=== PATIENT | female | born 1935 | race Hispanic/Latino ===

== ENCOUNTER 2018-05-05 12:34 | Inpatient (IN) | payer MEDICARE, MEDICAID, OTHER ==
[2018-05-05 13:35] VITALS: BMI 25.4
[2018-05-05] MEDS ORDERED: Vancomycin 1gm in NS 250ml 1 GM/250 ML BAG IVPB STA (13:38)
--- NOTE | 2018-05-05 13:50 | ED PDOC ---
Arrival/HPI - General Chief Complaint: Abnormal Skin Integrity Time Seen by Provider: 05/05/18 12:41 - History of Present Illness Narrative History of Present Illness (Text): 82 y/o F c PMHx COPD p/w R lower leg edema and rash x weeks, gradually worsening, causing worsening ability to ambulate about the house. Family and patient also report shortness of breath due to COPD for a long time. Patient has not found a PMD since her PMD and she is on no medications. She denies fever, chills, chest pain, nausea, vomiting, diarrhea. Past Medical History - Infectious Disease Hx of Infectious Diseases: None - Cardiac Hx Cardiac Disorders: Yes Hx Hypertension: Yes - Pulmonary Hx Respiratory Disorders: Yes Hx Chronic Obstructive Pulmonary Disease (COPD): Yes Hx Pneumonia: Yes - Neurological Hx Neurological Disorder: No - HEENT Hx HEENT Disorder: No - Renal Hx Renal Disorder: No - Endocrine/Metabolic Hx Endocrine Disorders: No - Hematological/Oncological Hx Blood Disorders: No - Integumentary Hx Dermatological Disorder: No - Musculoskeletal/Rheumatological Hx Musculoskeletal Disorders: No - Gastrointestinal Hx Gastrointestinal Disorders: Yes Hx Gastrointestinal Ulcer: Yes - Genitourinary/Gynecological Hx Genitourinary Disorders: No - Psychiatric Hx Psychophysiologic Disorder: No Hx Substance Use: No Family/Social History Family/Social History: No Known Family HX Smoking Status: Never Smoked Hx Alcohol Use: No Hx Substance Use: No Allergies/Home Meds Allergies/Adverse Reactions: Allergies Penicillins Allergy (Verified 05/05/18 13:34) RASH shellfish derived Allergy (Verified 05/05/18 13:34) RASH iv dye Allergy (Uncoded 05/05/18 13:34) RASH Review of Systems - Physician Review All systems were reviewed & negative as marked: Yes - Review of Systems Constitutional: absent: Fevers Cardiovascular: absent: Chest Pain Physical Exam - Physical Exam Narrative Physical Exam (Text): Gen: NAD Head: NC Eyes: PERRL ENT: MMM Neck: Supple Chest: No tenderness CV: Regular rate Lungs: Crackles bibasilar Abd: Soft, NT Back: No CVA tenderness Extremities: Bilateral lower extremity edema, R worse than L Skin: R lower leg erythema with weeping discharge Neuro: Alert, no focal deficit Vital Signs Temp Pulse Resp BP Pulse Ox 05/05/18 13:32 98.5 F 87 21 177/100 H 84 L Medical Decision Making ED Course and Treatment: EKG NSR 88 bpm, no ST elevations, normal intervals. 05/05/18 15:47 CXR hyperinflation, no consolidation. Elevated proBNP. Broad spectrum antibiotics administered for UTI, will also cover possible UTI on UA. Culture sent. Dr. Victor accepts patient to medical service. - RAD Interpretation Radiology Orders: 05/05/18 13:37 CHEST PORTABLE [RAD] Stat 05/05/18 13:38 DUPLEX LOWER EXTRM VEIN BILAT [US] Stat Disposition/Present on Arrival - Present on Arrival Any Indicators Present on Arrival: No History of DVT/PE: No History of Uncontrolled Diabetes: No Urinary Catheter: No History of Decub. Ulcer: No History Surgical Site Infection Following: None - Disposition Have Diagnosis and Disposition been Completed?: Yes Diagnosis: Cellulitis, UTI (urinary tract infection) Disposition Time: 14:40 Patient Plan: Admission Condition: FAIR Forms: [employer] ([employer])
[2018-05-05 14:28] LABS: BASO # 0.03 K/mm3 (0.0-2.0); BASO % 0.3 % (0.0-3.0); EOS # 0.2 (0.0-0.7); GRAN # 7.78 (1.4-6.5); GRAN % 81.1 % (50.0-68.0); HEMOGLOBIN 13.4 g/dL (12.0-16.0); LYMPH # 0.6 (1.2-3.4); MEAN CELL VOLUME 96.3 fl (80.0-105.0); MEAN CORPUSCULAR HEMOGLOBIN 30.7 pg (25.0-35.0); MEAN CORPUSCULAR HGB CONC 31.9 g/dl (31.0-37.0); MEAN PLATELET VOLUME 9.3 fl (7.0-11.0); MONO % 10.6 % (1.0-6.0); RBC 4.36 10^6/uL (3.5-6.1); WHITE BLOOD COUNT 9.6 10^3/uL (4.5-11.0)
[2018-05-05 14:55] LABS: INR 0.98; PARTIAL THROMBOPLASTIN TIME 25.3 Seconds (25.1-36.5); PROTHROMBIN TIME 11.2 SECONDS (9.4-12.5)
[2018-05-05 15:37] LABS: ALB/GLOB RATIO 1.1 (1.1-1.8); ALBUMIN 3.7 g/dL (3.0-4.8); ALT/SGPT 37 U/L (7-56); AST/SGOT 32 U/L (14-36); BLOOD UREA NITROGEN 34 mg/dL (7-21); GFR NON-AFRICAN AMERICAN > 60
[2018-05-05 15:41] LABS: URINE APPEARANCE CLEAR (CLEAR); URINE BILIRUBIN NEGATIVE (NEGATIVE); URINE BLOOD NEGATIVE (NEGATIVE); URINE COLOR YELLOW (YELLOW); URINE GLUCOSE (UA) NEGATIVE (NEGATIVE); URINE LEUKOCYTE ESTERASE SMALL Leu/uL (NEGATIVE); URINE PROTEIN TRACE mg/dL (<30 mg/dL); URINE UROBILINOGEN 0.2 E.U./dL (<1 E.U./dL)
[2018-05-05] MEDS ORDERED: Cefepime 1gm in NS 100ml 1 GM/100 ML BAG IVPB STA (15:41)
[2018-05-05 15:44] LABS: URINE RBC 0 - 2 /hpf (0-2)
[2018-05-05 15:45] LABS: B-TYPE NATRIURETIC PEPTIDE 3440 pg/mL (0-450)
[2018-05-05 15:45] LABS: URINE BACTERIA MOD (NEG)
--- NOTE | 2018-05-05 16:13 | CP.PCM.HP ---
<Colby Victor - Last Filed: 05/05/18 17:04> History of Present Illness - History of Present Illness History of Present Illness: Colby Victor Internal Medicine Resident H&P on Behalf of Hospitalist Team Subjective: CC: leg swelling and rash HPI: Patient is a 82 year old female with a past medical history of COPD who presents to the emergency department for evaluation and treatment of leg swelling/rash and difficulty with ambulation. States the symptoms began in November. Admits to having cuts and bug bites on lower extremity since onset. Admits to localized right lower extremity pain, rated a 5/10 at baseline, and characterized as a dull aching sensation. States swelling, erythema, and pain have gradually worsened since onset. Patient has not received medical attention for aforementioned symptoms nor has tried OTC medications/treatments. Unable to ambulate without overt difficulty. Admits to baseline shortness of breath. Does not take home nebulizer treatment for several years due to expense. Denies fever, chills, chest pain, shortness of breath, abdominal pain, nausea, vomiting, diarrhea, constipation, and urinary symptoms. 12 Point ROS negative except as indicated in HPI Past Medical History: COPD Past Surgical History: denies Allergies: penicillin, shellfish, iv dye Social History: denies ETOH, former tobacco user (quit over 20 years ago), and d enies illicit drug use Medications: does not take home medications PMD: does not follow Physical Examination: - Constitutional Appears: Well, Non-toxic, No Acute Distress - Head Exam Head Exam: ATRAUMATIC, NORMAL INSPECTION, NORMOCEPHALIC - Eye Exam Eye Exam: EOMI, Normal appearance - ENT Exam ENT Exam: Mucous Membranes Moist, Normal Exam, No tongue laceration - Neck Exam Neck exam: Positive for: Full Rom, Normal Inspection - Respiratory Exam Respiratory Exam: diminished breath sounds bilateral lower lobes, absent: Accessory Muscle Use, Rales, Rhonchi, Wheezes, Respiratory Distress - Cardiovascular Exam Cardiovascular Exam: REGULAR RHYTHM, +S1, +S2 - GI/Abdominal Exam GI & Abdominal Exam: Normal Bowel Sounds, Soft. absent: Distended, Firm, Guarding, Rebound, Rigid, Tenderness - Extremities Exam Extremities exam: right lower extremity circumferential erythema from foot to mid anterior aspect of lower extremity, scaling noted on medial/posterior aspect of foot, +2 pitting edema bilateral lower extremities\ - Neurological Exam Neurological exam: awake, alert, orientated x 3, responds to verbal stimuli, answers questions appropriately, follows commands, moves upper extremities past midline, muscle strength 5/5 bilateral upper extremities, 5/5 left lower extremity, RLE guarded 2/2 pain, sensation is intact to touch throughout, CNII- CNXII intact bilaterally - Psychiatric Exam Psychiatric exam: Normal Affect, Normal Mood - Skin Skin Exam: please see extremities exam Assessment and Plan: Patient is a 82 year old female with a past medical history of COPD who was admitted for evaluation and treatment of leg swelling and difficulty with ambulation. In the ED the patient was given vancomycin 1 gram IV x 1 and cefepime 1 gram IV x 1. Cellulitis - demarcate affected area to monitor for spread - continue vancomycin 1 gram IV daily and levofloxacin 750mg IV daily - will consult ID if patient is unresponsive to abx or cellulitis worsens - Podiatry consulted (Dr. Brown)- appreciate recs Lower Extremity Swelling - lower extremity duplex u/s ordered and pending at time to admission- unofficial read negative for DVT bilaterally - start lasix 20mg IV daily- will hold if SBP < 100mmHg - elevated BNP on admission, repeat BNP in AM - Echo ordered and pending- evaluate for component of CHF in light of lower extremity edema + CXR findings + SOB - Podiatry consulted (Dr. Brown)- appreciate recs UTI - patient has no urinary symptoms at this time Hx of COPD - CXR- ordered and official read pending at time to admission, patient is rotated, costophrenic angles visualized bilaterally, vascular congestion noted, multiple pulmonary nodules noted bilateral lung rico - duonebs q4 prn SOB Prophylaxis - DVT ppx- lovenox - GI ppx- not indicated Patient seen, case reviewed with, and plan approved by attending physician, Dr. Sandoval. Present on Admission - Present on Admission Any Indicators Present on Admission: No Past Patient History - Infectious Disease Hx of Infectious Diseases: None - Past Social History Smoking Status: Never Smoked - CARDIAC Hx Cardiac Disorders: Yes Hx Hypertension: Yes - PULMONARY Hx Respiratory Disorders: Yes Hx Chronic Obstructive Pulmonary Disease (COPD): Yes Hx Pneumonia: Yes - NEUROLOGICAL Hx Neurological Disorder: No - HEENT Hx HEENT Problems: No - RENAL Hx Chronic Kidney Disease: No - ENDOCRINE/METABOLIC Hx Endocrine Disorders: No - HEMATOLOGICAL/ONCOLOGICAL Hx Blood Disorders: No - INTEGUMENTARY Hx Dermatological Problems: No - MUSCULOSKELETAL/RHEUMATOLOGICAL Hx Musculoskeletal Disorders: No - GASTROINTESTINAL Hx Gastrointestinal Disorders: Yes - GENITOURINARY/GYNECOLOGICAL Hx Genitourinary Disorders: No - PSYCHIATRIC Hx Psychophysiologic Disorder: No Hx Substance Use: No - SURGICAL HISTORY Hx Surgeries: No Meds Allergies/Adverse Reactions: Allergies Allergy/AdvReac Type Severity Reaction Status Date / Time Penicillins Allergy RASH Verified 05/05/18 13:34 shellfish derived Allergy RASH Verified 05/05/18 13:34 iv dye Allergy RASH Uncoded 05/05/18 13:34 Results - Vital Signs Recent Vital Signs: Last Vital Signs Temp 98.5 F 05/05/18 13:32 Pulse 87 05/05/18 13:32 Resp 21 05/05/18 13:32 BP 177/100 H 05/05/18 13:32 Pulse Ox 84 L 05/05/18 13:32 - Labs Result Diagrams: 05/05/18 13:30 05/05/18 15:22 Labs: Laboratory Results - last 24 hr 05/05/18 05/05/18 05/05/18 13:30 13:30 15:22 WBC 9.6 RBC 4.36 Hgb 13.4 Hct 42.0 MCV 96.3 MCH 30.7 MCHC 31.9 RDW 15.0 H Plt Count 260 MPV 9.3 Gran % 81.1 H Lymph % (Auto) 6.0 L [place] % (Auto) 10.6 H Eos % (Auto) 2.0 Baso % (Auto) 0.3 Gran # 7.78 H Lymph # (Auto) 0.6 L [place] # (Auto) 1.0 H Eos # (Auto) 0.2 Baso # (Auto) 0.03 PT 11.2 INR 0.98 APTT 25.3 Sodium 136 Potassium 4.9 Chloride 97 L Carbon Dioxide 34 H Anion Gap 10 BUN 34 H Creatinine 0.7 Est GFR ( Amer) > 60 Est GFR (Non-Af Amer) > 60 Random Glucose 97 Calcium 9.0 Phosphorus 3.5 Magnesium 1.8 Total Bilirubin 0.8 AST 32 ALT 37 Alkaline Phosphatase 63 NT-Pro-B Natriuret Pep 3440 H Total Protein 7.1 Albumin 3.7 Globulin 3.4 Albumin/Globulin Ratio 1.1 Urine Color Urine Appearance Urine pH Ur Specific Stand[place] Urine Protein Urine Glucose (UA) Urine Ketones Urine Blood Urine Nitrate Urine Bilirubin Urine Urobilinogen Ur Leukocyte Esterase Urine RBC Urine WBC Ur Epithelial Cells Urine Bacteria 05/05/18 15:34 WBC RBC Hgb Hct MCV MCH MCHC RDW Plt Count MPV Gran % Lymph % (Auto) [place] % (Auto) Eos % (Auto) Baso % (Auto) Gran # Lymph # (Auto) [place] # (Auto) Eos # (Auto) Baso # (Auto) PT INR APTT Sodium Potassium Chloride Carbon Dioxide Anion Gap BUN Creatinine Est GFR ( Amer) Est GFR (Non-Af Amer) Random Glucose Calcium Phosphorus Magnesium Total Bilirubin AST ALT Alkaline Phosphatase NT-Pro-B Natriuret Pep Total Protein Albumin Globulin Albumin/Globulin Ratio Urine Color Yellow Urine Appearance Clear Urine pH 6.0 Ur Specific [place] 1.020 Urine Protein Trace H Urine Glucose (UA) Negative Urine Ketones Negative Urine Blood Negative Urine Nitrate Negative Urine Bilirubin Negative Urine Urobilinogen 0.2 Ur Leukocyte Esterase Small H Urine RBC 0 - 2 Urine WBC 5 - 10 Ur Epithelial Cells 3 - 4 Urine Bacteria Mod <Dheeraj Sandoval - Last Filed: 05/05/18 18:16> Results - Vital Signs Recent Vital Signs: Last Vital Signs Temp 98.5 F 05/05/18 13:32 Pulse 87 05/05/18 13:32 Resp 21 05/05/18 13:32 BP 177/100 H 05/05/18 13:32 Pulse Ox 84 L 05/05/18 13:32 - Labs Result Diagrams: 05/05/18 13:30 05/05/18 15:22 Labs: Laboratory Results - last 24 hr 05/05/18 05/05/18 05/05/18 13:30 13:30 15:22 WBC 9.6 RBC 4.36 Hgb 13.4 Hct 42.0 MCV 96.3 MCH 30.7 MCHC 31.9 RDW 15.0 H Plt Count 260 MPV 9.3 Gran % 81.1 H Lymph % (Auto) 6.0 L [place] % (Auto) 10.6 H Eos % (Auto) 2.0 Baso % (Auto) 0.3 Gran # 7.78 H Lymph # (Auto) 0.6 L [place] # (Auto) 1.0 H Eos # (Auto) 0.2 Baso # (Auto) 0.03 PT 11.2 INR 0.98 APTT 25.3 Sodium 136 Potassium 4.9 Chloride 97 L Carbon Dioxide 34 H Anion Gap 10 BUN 34 H Creatinine 0.7 Est GFR ( Amer) > 60 Est GFR (Non-Af Amer) > 60 Random Glucose 97 Calcium 9.0 Phosphorus 3.5 Magnesium 1.8 Total Bilirubin 0.8 AST 32 ALT 37 Alkaline Phosphatase 63 NT-Pro-B Natriuret Pep 3440 H Total Protein 7.1 Albumin 3.7 Globulin 3.4 Albumin/Globulin Ratio 1.1 Urine Color Urine Appearance Urine pH Ur Specific [place] Urine Protein Urine Glucose (UA) Urine Ketones Urine Blood Urine Nitrate Urine Bilirubin Urine Urobilinogen Ur Leukocyte Esterase Urine RBC Urine WBC Ur Epithelial Cells Urine Bacteria 05/05/18 15:34 WBC RBC Hgb Hct MCV MCH MCHC RDW Plt Count MPV Gran % Lymph % (Auto) [place] % (Auto) Eos % (Auto) Baso % (Auto) Gran # Lymph # (Auto) [place] # (Auto) Eos # (Auto) Baso # (Auto) PT INR APTT Sodium Potassium Chloride Carbon Dioxide Anion Gap BUN Creatinine Est GFR ( Amer) Est GFR (Non-Af Amer) Random Glucose Calcium Phosphorus Magnesium Total Bilirubin AST ALT Alkaline Phosphatase NT-Pro-B Natriuret Pep Total Protein Albumin Globulin Albumin/Globulin Ratio Urine Color Yellow Urine Appearance Clear Urine pH 6.0 Ur Specific [place] 1.020 Urine Protein Trace H Urine Glucose (UA) Negative Urine Ketones Negative Urine Blood Negative Urine Nitrate Negative Urine Bilirubin Negative Urine Urobilinogen 0.2 Ur Leukocyte Esterase Small H Urine RBC 0 - 2 Urine WBC 5 - 10 Ur Epithelial Cells 3 - 4 Urine Bacteria Mod Attending/Attestation - Attestation I have personally seen and examined this patient.: Yes I have fully participated in the care of the patient.: Yes I have reviewed all pertinent clinical information: Yes Notes (Text): 05/05/18 18:09 82 year old female with past medical history of COPD who presents with bilateral LE edema and right leg erythema. She is admitted for cellulitis and possible CHF. Probnp is elevated but CXR is negative for congestion; shows cardiomegaly. Will start iv antibiotics. ID/podiatry evaluation are requested. Will follow up on echocardiogram and LE dopplers. Can start lasix for diuresis. Dheeraj Sandoval MD Hospitalist.
--- NOTE | 2018-05-05 16:55 | RAD ---
Date of service: 05/05/2018 HISTORY: dyspnea COMPARISON: No prior. FINDINGS: LUNGS: No active pulmonary disease. PLEURA: No significant pleural effusion identified, no pneumothorax apparent. CARDIOVASCULAR: Aortic calcifications Moderate cardiomegaly. Mitral valve calcification no pulmonary vascular congestion. OSSEOUS STRUCTURES: No significant abnormalities. VISUALIZED UPPER ABDOMEN: Normal. OTHER FINDINGS: None. IMPRESSION: No active disease.
[2018-05-05] MEDS ORDERED: Albuterol-Ipratrop 3 mg / 0.5 (3 ml) UD IH PRN (17:07)
[2018-05-05] MEDS: Enoxaparin 40 mg Syringe SC SCH (17:11)
--- NOTE | 2018-05-05 19:23 | US ---
HISTORY: Leg pain and swelling. Evaluate for DVT PHYSICIAN(S): Shaheed Burden MD. TECHNIQUE: Duplex sonography and color-flow Doppler with graded compression were used to evaluate the deep venous systems of both lower extremities. The exam is limited by edema FINDINGS: The visualized deep venous systems of both lower extremities are sonographically normal and compressible. Normal wave forms and augmentation are seen. There is no sonographic evidence for deep venous thrombosis in the visualized segments of both lower extremities. IMPRESSION: No sonographic evidence for deep venous thrombosis in the visualized segments of both lower extremities.
[2018-05-05] MEDS ORDERED: Albuterol-Ipratrop 3 mg / 0.5 (3 ml) UD IH SCH (19:30)
[2018-05-05 19:43] LABS: HDL CHOLESTEROL 67 mg/dL (29-60)
--- NOTE | 2018-05-05 19:47 | CARD ---
APPROVED REPORT Date of service: 05/05/2018 EKG Measurement Heart [id number] <Conclusion> Poor data quality, interpretation may be adversely affected Suspect arm lead reversal, interpretation assumes no reversal Normal sinus rhythm Possible Left atrial enlargement Rightward axis Low voltage QRS Cannot rule out Anterior infarct, age undetermined Abnormal ECG
[2018-05-05 19:58] LABS: LDL CHOLESTEROL 73 mg/dL (0-129)
[2018-05-06 07:10] LABS: BASO # 0.02 K/mm3 (0.0-2.0); BASO % 0.3 % (0.0-3.0); EOS % 0.5 % (1.5-5.0); GRAN # 6.23 (1.4-6.5); GRAN % 78.5 % (50.0-68.0); HEMOGLOBIN 12.7 g/dL (12.0-16.0); LYMPH # 0.6 (1.2-3.4); LYMPH % 7.2 % (22.0-35.0); MEAN CELL VOLUME 95.8 fl (80.0-105.0); MEAN CORPUSCULAR HEMOGLOBIN 29.9 pg (25.0-35.0); MEAN CORPUSCULAR HGB CONC 31.2 g/dl (31.0-37.0); MEAN PLATELET VOLUME 9.1 fl (7.0-11.0); MONO # 1.1 (0.1-0.6); MONO % 13.5 % (1.0-6.0); RBC 4.25 10^6/uL (3.5-6.1); RED CELL DISTRIBUTION WIDTH 15.2 % (11.5-14.5); WHITE BLOOD COUNT 7.9 10^3/uL (4.5-11.0)
[2018-05-06 07:20] LABS: B-TYPE NATRIURETIC PEPTIDE 8030 pg/mL (0-450)
--- NOTE | 2018-05-06 07:26 | CP.PCM.CON ---
<eYimy Soriano - Last Filed: 05/06/18 14:04> History of Present Illness - History of Present Illness History of Present Illness: Infectious Disease Consult for Fercho Murcia PGY3 This is an 82yo female with no past medical history who was brought in by family for leg swelling for several days. Patient reports she has been feeling fine at home. She noticed some drainage from the R leg. She denies trauma, cat scratch, recent travel, working outside, sick contacts. Patient states it has been like that "for a while". She denies fever/chills, chest pain, shortness of breath, nausea/vomiting/diarrhea, numbness/tingling, dysuria or hematuria. Past medical history: denies Past surgical history: denies Home meds: Denies Allergies: PCN, Shellfish Social history: Former heavy smoker, denies Etoh or drug use. Lives alone. Has 1 cat named Trouble Family history: Mom- of ID age 53, Dad- of brain cancer age 80s, Sisters had pancreatic ca in 50s Review of Systems - Review of Systems All systems: reviewed and no additional remarkable complaints except Review of Systems: 12 point ROS reviewed as per HPI and is otherwise negative. Past Patient History - Infectious Disease Hx of Infectious Diseases: None - Past Social History Smoking Status: Never Smoked - CARDIAC Hx Cardiac Disorders: Yes Hx Hypertension: Yes - PULMONARY Hx Respiratory Disorders: Yes Hx Chronic Obstructive Pulmonary Disease (COPD): Yes Hx Pneumonia: Yes - NEUROLOGICAL Hx Neurological Disorder: No - HEENT Hx HEENT Problems: No - RENAL Hx Chronic Kidney Disease: No - ENDOCRINE/METABOLIC Hx Endocrine Disorders: No - HEMATOLOGICAL/ONCOLOGICAL Hx Blood Disorders: No - INTEGUMENTARY Hx Dermatological Problems: No - MUSCULOSKELETAL/RHEUMATOLOGICAL Hx Falls: No - GASTROINTESTINAL Hx Gastrointestinal Disorders: Yes - GENITOURINARY/GYNECOLOGICAL Hx Genitourinary Disorders: No - PSYCHIATRIC Hx Psychophysiologic Disorder: No - SURGICAL HISTORY Hx Surgeries: No Meds Allergies/Adverse Reactions: Allergies Allergy/AdvReac Type Severity Reaction Status Date / Time Penicillins Allergy RASH Verified 05/05/18 13:34 shellfish derived Allergy RASH Verified 05/05/18 13:34 iv dye Allergy RASH Uncoded 05/05/18 13:34 - Medications Medications: Current Medications Albuterol/Ipratropium (Duoneb 3 Mg/0.5 Mg (3 Ml) Ud) 3 ml IH [id number] PRN PRN Reason: Shortness of Breath Aspirin (Ecotrin) 81 mg PO DAILY [facility]END[facility] TO [facility] Enoxaparin Sodium (Lovenox) 30 mg SC DAILY [facility]; Protocol Last Admin: 05/05/18 17:11 Dose: 30 mg Furosemide (Lasix) 20 mg IVP DAILY [facility] Last Admin: 05/05/18 20:39 Dose: 20 mg Physical Exam - Constitutional Appears: No Acute Distress - Head Exam Head Exam: ATRAUMATIC, NORMAL INSPECTION, NORMOCEPHALIC - Eye Exam Eye Exam: Normal appearance, PERRL Pupil Exam: NORMAL ACCOMODATION, PERRL - ENT Exam ENT Exam: Mucous Membranes Moist - Neck Exam Neck exam: Positive for: Normal Inspection - Respiratory Exam Respiratory Exam: Clear to Auscultation Bilateral, NORMAL BREATHING PATTERN. absent: Rales, Rhonchi, Wheezes - Cardiovascular Exam Cardiovascular Exam: REGULAR RHYTHM, +S1, +S2. absent: Gallop, Rubs, Systolic Murmur - GI/Abdominal Exam GI & Abdominal Exam: Normal Bowel Sounds, Soft. absent: Mass, Rebound, Rigid, Tenderness - Extremities Exam Extremities exam: Positive for: pedal edema Additional comments: LLE has L sided wound with purulent drainage. Bilateral LE erythema. - Neurological Exam Neurological exam: Alert, CN II-XII Intact, Oriented x3 - Psychiatric Exam Psychiatric exam: Normal Affect, Normal Mood - Skin Skin Exam: Dry, Warm Results - Vital Signs Recent Vital Signs: Last Vital Signs Temp 98.3 F 05/05/18 22:41 Pulse 83 05/05/18 22:41 Resp 18 05/05/18 22:45 BP 199/86 H 05/05/18 22:41 Pulse Ox 91 L 05/05/18 22:41 - Labs Result Diagrams: 05/06/18 06:30 05/06/18 06:30 Labs: Laboratory Results - last 24 hr 05/05/18 05/05/18 05/05/18 13:30 13:30 15:22 WBC 9.6 RBC 4.36 Hgb 13.4 Hct 42.0 MCV 96.3 MCH 30.7 MCHC 31.9 RDW 15.0 H Plt Count 260 MPV 9.3 Gran % 81.1 H Lymph % (Auto) 6.0 L [place] % (Auto) 10.6 H Eos % (Auto) 2.0 Baso % (Auto) 0.3 Gran # 7.78 H Lymph # (Auto) 0.6 L [place] # (Auto) 1.0 H Eos # (Auto) 0.2 Baso # (Auto) 0.03 PT 11.2 INR 0.98 APTT 25.3 Sodium 136 Potassium 4.9 Chloride 97 L Carbon Dioxide 34 H Anion Gap 10 BUN 34 H Creatinine 0.7 Est GFR ( Amer) > 60 Est GFR (Non-Af Amer) > 60 Random Glucose 97 Hemoglobin A1c Calcium 9.0 Phosphorus 3.5 Magnesium 1.8 Total Bilirubin 0.8 AST 32 ALT 37 Alkaline Phosphatase 63 NT-Pro-B Natriuret Pep 3440 H Total Protein 7.1 Albumin 3.7 Globulin 3.4 Albumin/Globulin Ratio 1.1 Triglycerides Cholesterol LDL Cholesterol Direct HDL Cholesterol Urine Color Urine Appearance Urine pH Ur Specific [place] Urine Protein Urine Glucose (UA) Urine Ketones Urine Blood Urine Nitrate Urine Bilirubin Urine Urobilinogen Ur Leukocyte Esterase Urine RBC Urine WBC Ur Epithelial Cells Urine Bacteria 05/05/18 05/05/18 05/05/18 15:22 15:34 16:00 WBC RBC Hgb Hct MCV MCH MCHC RDW Plt Count MPV Gran % Lymph % (Auto) [place] % (Auto) Eos % (Auto) Baso % (Auto) Gran # Lymph # (Auto) [place] # (Auto) Eos # (Auto) Baso # (Auto) PT INR APTT Sodium Potassium Chloride Carbon Dioxide Anion Gap BUN Creatinine Est GFR ( Amer) Est GFR (Non-Af Amer) Random Glucose Hemoglobin A1c 5.6 Calcium Phosphorus Magnesium Total Bilirubin AST ALT Alkaline Phosphatase NT-Pro-B Natriuret Pep Total Protein Albumin Globulin Albumin/Globulin Ratio Triglycerides 55 Cholesterol 148 LDL Cholesterol Direct 73 HDL Cholesterol 67 H Urine Color Yellow Urine Appearance Clear Urine pH 6.0 Ur Specific [place] 1.020 Urine Protein Trace H Urine Glucose (UA) Negative Urine Ketones Negative Urine Blood Negative Urine Nitrate Negative Urine Bilirubin Negative Urine Urobilinogen 0.2 Ur Leukocyte Esterase Small H Urine RBC 0 - 2 Urine WBC 5 - 10 Ur Epithelial Cells 3 - 4 Urine Bacteria Mod 05/06/18 05/06/18 06:30 06:30 WBC 7.9 RBC 4.25 Hgb 12.7 Hct 40.7 MCV 95.8 MCH 29.9 MCHC 31.2 RDW 15.2 H Plt Count 234 MPV 9.1 Gran % 78.5 H Lymph % (Auto) 7.2 L [place] % (Auto) 13.5 H Eos % (Auto) 0.5 L Baso % (Auto) 0.3 Gran # 6.23 Lymph # (Auto) 0.6 L [place] # (Auto) 1.1 H Eos # (Auto) 0.0 Baso # (Auto) 0.02 PT INR APTT Sodium Potassium Chloride Carbon Dioxide Anion Gap BUN Creatinine Est GFR ( Amer) Est GFR (Non-Af Amer) Random Glucose Hemoglobin A1c Calcium Phosphorus Magnesium Total Bilirubin AST ALT Alkaline Phosphatase NT-Pro-B Natriuret Pep 8030 H Total Protein Albumin Globulin Albumin/Globulin Ratio Triglycerides Cholesterol LDL Cholesterol Direct HDL Cholesterol Urine Color Urine Appearance Urine pH Ur Specific [place] Urine Protein Urine Glucose (UA) Urine Ketones Urine Blood Urine Nitrate Urine Bilirubin Urine Urobilinogen Ur Leukocyte Esterase Urine RBC Urine WBC Ur Epithelial Cells Urine Bacteria Assessment & Plan - Assessment and Plan (Free Text) Assessment: 1. LLE puruelent cellulitis Plan: Septic work up pending. Wound cultures pending. US negative for DVT. Will check SIDNEY. Will start patient on Vancomycin. Podiatry is on consult. Will continue to monitor clinically. Case seen, discussed and reviewed with Dr. Martha Soriano PGY3 - Date & Time Date: 05/06/18 Time: 14:18 <Freddy Thomas - Last Filed: 05/06/18 17:16> Meds - Medications Medications: Current Medications Acetaminophen (Tylenol 325mg Tab) 650 mg PO Q6H PRN PRN Reason: Pain, moderate (4-7) Albuterol/Ipratropium (Duoneb 3 Mg/0.5 Mg (3 Ml) Ud) 3 ml IH [id number] PRN PRN Reason: Shortness of Breath Aspirin (Ecotrin) 81 mg PO DAILY [facility] Last Admin: 05/06/18 10:15 Dose: 81 mg Enoxaparin Sodium (Lovenox) 30 mg SC DAILY [facility]; Protocol Furosemide (Lasix) 20 mg IVP DAILY [facility] Last Admin: 05/06/18 10:15 Dose: 20 mg Vancomycin HCl (Vancomycin 1gm) 1 gm in 250 mls @ 167 mls/hr IVPB DAILY [facility]; Protocol Last Admin: 05/06/18 16:55 Dose: 167 mls/hr Results - Vital Signs Recent Vital Signs: Last Vital Signs Temp 97.5 F L 05/06/18 14:00 Pulse 92 H 05/06/18 14:00 Resp 16 05/06/18 14:00 BP 137/68 05/06/18 14:00 Pulse Ox 94 L 05/06/18 14:00 - Labs Result Diagrams: 05/06/18 06:30 05/06/18 06:30 Labs: Laboratory Results - last 24 hr 05/05/18 05/05/18 05/06/18 15:22 16:00 06:30 WBC 7.9 RBC 4.25 Hgb 12.7 Hct 40.7 MCV 95.8 MCH 29.9 MCHC 31.2 RDW 15.2 H Plt Count 234 MPV 9.1 Gran % 78.5 H Lymph % (Auto) 7.2 L [place] % (Auto) 13.5 H Eos % (Auto) 0.5 L Baso % (Auto) 0.3 Gran # 6.23 Lymph # (Auto) 0.6 L [place] # (Auto) 1.1 H Eos # (Auto) 0.0 Baso # (Auto) 0.02 Sodium Potassium Chloride Carbon Dioxide Anion Gap BUN Creatinine Est GFR ( Amer) Est GFR (Non-Af Amer) Random Glucose Hemoglobin A1c 5.6 Calcium Phosphorus Magnesium Total Bilirubin AST ALT Alkaline Phosphatase NT-Pro-B Natriuret Pep Total Protein Albumin Globulin Albumin/Globulin Ratio Triglycerides 55 Cholesterol 148 LDL Cholesterol Direct 73 HDL Cholesterol 67 H 05/06/18 06:30 WBC RBC Hgb Hct MCV MCH MCHC RDW Plt Count MPV Gran % Lymph % (Auto) [place] % (Auto) Eos % (Auto) Baso % (Auto) Gran # Lymph # (Auto) [place] # (Auto) Eos # (Auto) Baso # (Auto) Sodium 136 Potassium 4.5 Chloride 98 Carbon Dioxide 32 Anion Gap 10 BUN 33 H Creatinine 0.8 Est GFR ( Amer) > 60 Est GFR (Non-Af Amer) > 60 Random Glucose 102 Hemoglobin A1c Calcium 8.4 Phosphorus 3.5 Magnesium 1.7 Total Bilirubin 1.1 AST 25 ALT 32 Alkaline Phosphatase 52 NT-Pro-B Natriuret Pep 8030 H Total Protein 6.1 Albumin 3.0 Globulin 3.1 Albumin/Globulin Ratio 1.0 L Triglycerides Cholesterol LDL Cholesterol Direct HDL Cholesterol Assessment & Plan - Assessment and Plan (Free Text) Plan: Infectious Diseases Attending Physician Attestation Patient seen and examined, discussed with medical chemist. I have reviewed the patient's history of present illness, past medical, family and social histories, personal history, physical exam, lab findings and imaging studies. I agree with the above findings, assessment and plan. In addition, will start Vancomycin for patient with probable right leg cellulitis in this patient with probable chronic venous stasis - follow up ultrasound of legs and Podiatry evaluation.
[2018-05-06 07:34] LABS: ALT/SGPT 32 U/L (7-56); AST/SGOT 25 U/L (14-36); BLOOD UREA NITROGEN 33 mg/dL (7-21); CALCIUM 8.4 mg/dL (8.4-10.5); GFR NON-AFRICAN AMERICAN > 60
[2018-05-06] MEDS ORDERED: Vancomycin 1gm in NS 250ml 1 GM/250 ML BAG IVPB SCH (10:00)
[2018-05-06] MEDS ORDERED: levoFLOXacin 750 mg in D5W 750 MG/150 ML BAG IVPB SCH (10:00)
--- NOTE | 2018-05-06 15:33 | US ---
PROCEDURE: Lower extremity SIDNEY exam HISTORY: Peripheral vascular disease with pain and claudication. Previous smoker PHYSICIAN(S): Shaheed Burden MD. FINDINGS: The right resting SIDNEY is borderline abnormal, 0.86. The left resting SIDNEY is normal, 1.02 The brachial systolic pressures are symmetric. The high thigh pressures and waveforms are relatively normal. There appears to be a 41 mm gradient across the right knee. The right ankle and metatarsal waveforms are pulsatile and mildly blunted. This could represent distal right SFA, popliteal, and/or trifurcation disease. No gradient is seen on the left. IMPRESSION: 1. Borderline abnormal right SIDNEY 2. Possible distal right SFA, popliteal, and/or trifurcation disease.
[2018-05-06] MEDS: Vancomycin 1gm in NS 250ml 1 GM/250 ML BAG IVPB SCH (16:55)
--- NOTE | 2018-05-06 16:55 | CP.PCM.PN ---
<Rohan Carbajlaophe - Last Filed: 05/06/18 17:44> Subjective - Date & Time of Evaluation Date of Evaluation: 05/06/18 Time of Evaluation: 16:50 - Subjective Subjective: Michael Solomon PGY2 - IM Progress Note Patient seen and examined this AM. Patient reports improved lower extremity discomfort. Denies fever, chest pain, nausea, vomiting, abdominal pain. Objective - Vital Signs/Intake and Output Vital Signs (last 24 hours): Temp Pulse Resp BP Pulse Ox 97.5 F L 92 H 16 137/68 94 L 05/06/18 14:00 05/06/18 14:00 05/06/18 14:00 05/06/18 14:00 05/06/18 14:00 Intake and Output: 05/06/18 05/06/18 06:59 18:59 Intake Total 120 Balance 120 - Medications Medications: Current Medications Acetaminophen (Tylenol 325mg Tab) 650 mg PO Q6H PRN PRN Reason: Pain, moderate (4-7) Albuterol/Ipratropium (Duoneb 3 Mg/0.5 Mg (3 Ml) Ud) 3 ml IH [id number] PRN PRN Reason: Shortness of Breath Aspirin (Ecotrin) 81 mg PO DAILY [facility] Last Admin: 05/06/18 10:15 Dose: 81 mg Enoxaparin Sodium (Lovenox) 30 mg SC DAILY [facility]; Protocol Furosemide (Lasix) 20 mg IVP DAILY [facility] Last Admin: 05/06/18 10:15 Dose: 20 mg Vancomycin HCl (Vancomycin 1gm) 1 gm in 250 mls @ 167 mls/hr IVPB DAILY [facility]; Protocol - Labs Labs: 05/06/18 06:30 05/06/18 06:30 PT 11.2 SECONDS (9.4-12.5) 05/05/18 13:30 INR 0.98 05/05/18 13:30 APTT 25.3 Seconds (25.1-36.5) 05/05/18 13:30 - Constitutional Appears: No Acute Distress - Head Exam Head Exam: ATRAUMATIC, NORMAL INSPECTION, NORMOCEPHALIC - Eye Exam Eye Exam: EOMI, PERRL - ENT Exam ENT Exam: Mucous Membranes Moist - Respiratory Exam Respiratory Exam: Rales, Rhonchi, NORMAL BREATHING PATTERN - Cardiovascular Exam Cardiovascular Exam: REGULAR RHYTHM, +S1, +S2 - GI/Abdominal Exam GI & Abdominal Exam: Soft, Normal Bowel Sounds - Extremities Exam Additional comments: moderate swelling bilaterally Right greater than lef Right lower extremity with erythema, swelling, warmth, and slight tenderness to palpation, wound dressing showing some signs of collection of oozing fluid as reported on admission - Neurological Exam Neurological Exam: Alert, Awake, Oriented x3 Neuro motor strength exam: Left Upper Extremity: 5, Right Upper Extremity: 5, Left Lower Extremity: 5, Right Lower Extremity: 5 - Psychiatric Exam Psychiatric exam: Normal Affect, Normal Mood - Skin Skin Exam: Dry, Warm Assessment and Plan - Assessment and Plan (Free Text) Assessment: Patient is a 82 year old female with a past medical history of COPD who was admitted for evaluation and treatment of leg swelling and difficulty with ambulation. In the ED the patient was given vancomycin 1 gram IV x 1 and cefepime 1 gram IV. Podiatry consulted, ID consulted and following patient. Patient indicating clinical improvement in left leg discomfort. Plan: Cellulitis - Patient with improved discomfort on evaluation today - ID Consulted and following - Vancomycin and Podiatry follow up - Podiatry consulted (Dr. Kelsey)- awaiting recs - Bandaging in place showing some saturation with yellow fluid collection Lower Extremity Swelling - Etiology: Cardiac origin vs. venous insufficiency vs. immobility vs. infection - Elevated pro-BNP on admission, clinically less suspicious CHF - lower extremity duplex u/s negative for DVT bilaterally - lasix 20mg IV daily- will hold if SBP < 100mmHg - Podiatry consulted (Laure)- appreciate recs - Echocardiogram pending official read Hx of COPD - duonebs q4 prn SOB - O2 saturation appropriate Prophylaxis - DVT ppx- lovenox - GI ppx- not indicated Patient seen, case and plan discussed and approved by attending physician, Dr. Sandoval. <Dheeraj Sandoval - Last Filed: 05/06/18 18:12> Objective - Vital Signs/Intake and Output Vital Signs (last 24 hours): Temp Pulse Resp BP Pulse Ox 97.5 F L 92 H 16 137/68 94 L 05/06/18 14:00 05/06/18 14:00 05/06/18 14:00 05/06/18 14:00 05/06/18 14:00 Intake and Output: 05/06/18 05/06/18 06:59 18:59 Intake Total 120 Balance 120 - Medications Medications: Current Medications Acetaminophen (Tylenol 325mg Tab) 650 mg PO Q6H PRN PRN Reason: Pain, moderate (4-7) Albuterol/Ipratropium (Duoneb 3 Mg/0.5 Mg (3 Ml) Ud) 3 ml IH [id number] PRN PRN Reason: Shortness of Breath Aspirin (Ecotrin) 81 mg PO DAILY [facility] Last Admin: 05/06/18 10:15 Dose: 81 mg Enoxaparin Sodium (Lovenox) 30 mg SC DAILY [facility]; Protocol Furosemide (Lasix) 20 mg IVP DAILY [facility] Last Admin: 05/06/18 10:15 Dose: 20 mg Vancomycin HCl (Vancomycin 1gm) 1 gm in 250 mls @ 167 mls/hr IVPB DAILY [facility]; Protocol Last Admin: 05/06/18 16:55 Dose: 167 mls/hr - Labs Labs: 05/06/18 06:30 05/06/18 06:30 PT 11.2 SECONDS (9.4-12.5) 05/05/18 13:30 INR 0.98 05/05/18 13:30 APTT 25.3 Seconds (25.1-36.5) 05/05/18 13:30 Attending/Attestation - Attestation I have personally seen and examined this patient.: Yes I have fully participated in the care of the patient.: Yes I have reviewed all pertinent clinical information, including history, physical exam and plan: Yes Notes (Text): 05/06/18 18:03 82 year old female with past medical history of COPD who presented with bilateral LE edema and right leg erythema. She was admitted for cellulitis and started on iv antibiotics. ID evaluation was appreciated. Podiatry evaluation is pending. LE doppler was negative for DVT; arterial doppler showed borderline abnormal right SIDNEY: possible distal right SFA, popliteal and/or trifurcation disease. She is on iv lasix. Echocardiogram was done today with pending report. Dheeraj Sandoval MD Hospitalist.
--- NOTE | 2018-05-06 18:05 | CARD ---
APPROVED REPORT Date of service: 05/06/2018 EXAM: Two-dimensional and M-mode echocardiogram with Doppler and color Doppler. INDICATION ELEVATED BNP 2D DIMENSIONS Left Atrium (2D)5.7 (1.6-4.0cm)IVSd1.4 (0.7-1.1cm) LVDd3.7 (3.9-5.9cm)PWd1.2 (0.7-1.1cm) LVDs2.3 (2.5-4.0cm)FS (%) 37.8 % LVEF (%)68.8 (>50%) M-Mode DIMENSIONS Aortic Root3.00 (2.2-3.7cm)Aortic Cusp Exc.1.60 (1.5-2.0cm) Aortic Valve AoV Peak Ltvdhowj646.0cm/sAoV VTI41.2cmAO Peak GR.25mmHg LVOT Peak Zurprsta947.0cm/sLVOT VTI26.20cmAO Mean GR.12mmHg Mitral Valve MV E Mvvfrbkt166.0cm/sMV A Uekvnxsn580.0cm/sMV [id number] E/A ratio0.7MVA (PHT)2.08cm2 TDI Lateral E' Peak V7.90cm/sMedial E' Peak V4.87cm/sE/Lateral E'13.2 E/Medial E'21.4 Pulmonary Valve PV Peak Pctwtemg21.9cm/sPV Peak Grad.3mmHg Tricuspid Valve TR Peak Fyhfjowe910mq/sRAP [id number] Peak Gr.135mmHg [id number] LEFT VENTRICLE The left ventricle is normal size. There is mild to moderate concentric left ventricular hypertrophy. The left ventricular function is normal.EF-65-70% There is a flattened septum consistent with right ventricle volume and pressure overload. Transmitral Doppler flow pattern is Grade III-reversible restrictive diastolic dysfunction. No left ventricle thrombus noted on this study. There is no ventricular septal defect visualized. There is no left ventricular aneurysm. There is no mass noted in the left ventricle. RIGHT VENTRICLE The right ventricle is severely dilated. The right ventricle is mildly to moderately hypertrophied. Systolic function of RV is moderately to severely reduced. ATRIA The left atrium is moderately dilated. The right atrium is severely dilated. The interatrial septum is intact with no evidence for an atrial septal defect. AORTIC VALVE The aortic valve is thickened but opens well. The aortic valve is mildly to moderately sclerotic. There is trace aortic regurgitation. Aortic Sclerosis Vs Mild As There is no aortic valvular vegetation. MITRAL VALVE The mitral valve is thickened but opens well. Mitral annular calcification is severe. Mitral regurgitation is moderate to severe., Eccentric Jet posteriorly directed. There is no mitral valve stenosis. There is no evidence of mitral valve prolapse. TRICUSPID VALVE The tricuspid valve leaflets are thickened , but open well. There is severe tricuspid regurgitation.RVSP-145 mm of Hg There is severe pulmonary hypertension. There is no tricuspid valve stenosis. There is no tricuspid valve prolapse or vegetation. PULMONIC VALVE The pulmonary valve is normal in structure. There is trace pulmonic valvular regurgitation. There is no pulmonic valvular stenosis. GREAT VESSELS The aortic root is normal in size. The ascending aorta is normal in size. The pulmonary artery is normal. The IVC is dilated. PERICARDIAL EFFUSION There is no pleural effusion. There is a trace to small pericardial effusion. <Conclusion> The left ventricle is normal size. There is mild to moderate concentric left ventricular hypertrophy. The left ventricular function is normal.EF-65-70% There is a flattened septum consistent with right ventricle volume and pressure overload. The right ventricle is severely dilated. Systolic function of RV is moderately to severely reduced. Aortic Sclerosis Vs Mild As There is trace aortic regurgitation. Mitral regurgitation is moderate to severe., Eccentric Jet posteriorly directed. There is severe tricuspid regurgitation.RVSP-145 mm of Hg There is severe pulmonary hypertension. There is trace pulmonic valvular regurgitation. The IVC is dilated. There is a trace to small pericardial effusion. No vegetation noted.
[2018-05-06] MEDS: Enoxaparin 40 mg Syringe SC SCH (18:53)
--- NOTE | 2018-05-07 06:55 | CP.PCM.PN ---
<Yeimy Soriano - Last Filed: 05/07/18 12:21> Subjective - Date & Time of Evaluation Date of Evaluation: 05/07/18 Time of Evaluation: 07:00 - Subjective Subjective: Infectious Disease Progress Note for Fercho Murcia PGY3 Patient seen and examined at bedside. She is resting comfortably in bed. She remains afebrile. Objective - Vital Signs/Intake and Output Vital Signs (last 24 hours): Temp Pulse Resp BP Pulse Ox 98 F 88 18 130/70 95 05/06/18 22:00 05/06/18 22:00 05/06/18 22:00 05/06/18 22:00 05/06/18 22:00 Intake and Output: 05/06/18 05/07/18 18:59 06:59 Intake Total 120 1400 Balance 120 1400 - Medications Medications: Current Medications Acetaminophen (Tylenol 325mg Tab) 650 mg PO Q6H PRN PRN Reason: Pain, moderate (4-7) Albuterol/Ipratropium (Duoneb 3 Mg/0.5 Mg (3 Ml) Ud) 3 ml IH [id number] PRN PRN Reason: Shortness of Breath Aspirin (Ecotrin) 81 mg PO DAILY [facility] Last Admin: 05/06/18 10:15 Dose: 81 mg Enoxaparin Sodium (Lovenox) 30 mg SC DAILY [facility]; Protocol Furosemide (Lasix) 20 mg IVP DAILY [facility] Last Admin: 05/06/18 10:15 Dose: 20 mg Vancomycin HCl (Vancomycin 1gm) 1 gm in 250 mls @ 167 mls/hr IVPB DAILY [facility]; Protocol Last Admin: 05/06/18 16:55 Dose: 167 mls/hr - Labs Labs: 05/06/18 06:30 05/06/18 06:30 PT 11.2 SECONDS (9.4-12.5) 05/05/18 13:30 INR 0.98 05/05/18 13:30 APTT 25.3 Seconds (25.1-36.5) 05/05/18 13:30 - Constitutional Appears: No Acute Distress - Head Exam Head Exam: ATRAUMATIC, NORMAL INSPECTION, NORMOCEPHALIC - Eye Exam Eye Exam: Normal appearance, PERRL Pupil Exam: NORMAL ACCOMODATION, PERRL - ENT Exam ENT Exam: Mucous Membranes Moist - Respiratory Exam Respiratory Exam: Clear to Ausculation Bilateral, NORMAL BREATHING PATTERN. absent: Rales, Rhonchi, Wheezes - Cardiovascular Exam Cardiovascular Exam: REGULAR RHYTHM, +S1, +S2, Murmur. absent: Gallop, Rubs - GI/Abdominal Exam GI & Abdominal Exam: Soft, Normal Bowel Sounds. absent: Rigid, Tenderness, Mass, Rebound - Extremities Exam Extremities Exam: Pedal Edema Additional comments: LLE has L sided wound with purulent drainage. Bilateral LE erythema. - Neurological Exam Neurological Exam: Alert, Awake, CN II-XII Intact, Oriented x3 - Psychiatric Exam Psychiatric exam: Normal Affect, Normal Mood - Skin Skin Exam: Dry, Warm Assessment and Plan - Assessment and Plan (Free Text) Assessment: 1. LLE puruelent cellulitis 2. COPD 3. Diastolic CHF Plan: Labs and imaging reviewed. SIDNEY abnormal on R. Cultures showed 2 gram negative addy. Will add Azactam since patient PCN allergic. Will continue Vancomycin day #2. Podiatry consulted. Will continue to monitor clinically. Case seen, discussed and reviewed with Dr. Martha Soriano PGY3 <Freddy Thomas - Last Filed: 05/07/18 16:56> Objective - Vital Signs/Intake and Output Vital Signs (last 24 hours): Temp Pulse Resp BP Pulse Ox 98 F 90 18 155/87 H 94 L 05/07/18 14:00 05/07/18 14:00 05/07/18 14:00 05/07/18 14:00 05/07/18 06:00 Intake and Output: 05/07/18 05/07/18 06:59 18:59 Intake Total 1400 Balance 1400 - Medications Medications: Current Medications Acetaminophen (Tylenol 325mg Tab) 650 mg PO Q6H PRN PRN Reason: Pain, moderate (4-7) Albuterol/Ipratropium (Duoneb 3 Mg/0.5 Mg (3 Ml) Ud) 3 ml IH [id number] PRN PRN Reason: Shortness of Breath Aspirin (Ecotrin) 81 mg PO DAILY [facility] Last Admin: 05/07/18 12:05 Dose: 81 mg Betamethasone/Clotrimazole (Lotrisone) 0 ml TOP BID [facility] Enoxaparin Sodium (Lovenox) 30 mg SC DAILY [facility]; Protocol Last Admin: 05/07/18 12:06 Dose: 30 mg Furosemide (Lasix) 20 mg IVP DAILY [facility] Last Admin: 05/07/18 12:05 Dose: 20 mg Aztreonam (Azactam 1 Gm) 100 mls @ 100 mls/hr IVPB Q8 [facility]; Protocol Stop: 05/14/18 14:01 Last Admin: 05/07/18 15:12 Dose: 100 mls/hr Vancomycin HCl (Vancomycin 1gm) 1 gm in 250 mls @ 167 mls/hr IVPB Q12 [facility]; Protocol Polyethylene Glycol (Miralax) 17 gm PO DAILY [facility] Last Admin: 05/07/18 15:20 Dose: Not Given - Labs Labs: 05/07/18 07:00 05/07/18 07:00 PT 11.2 SECONDS (9.4-12.5) 05/05/18 13:30 INR 0.98 05/05/18 13:30 APTT 25.3 Seconds (25.1-36.5) 05/05/18 13:30 Assessment and Plan - Assessment and Plan (Free Text) Plan: Infectious Diseases Attending Physician Attestation Patient seen and examined, discussed with front office medical assistant. I have reviewed the patient's history of present illness, past medical, family and social histories, personal history, physical exam, lab findings and imaging studies. I agree with the above findings, assessment and plan. In addition, will continue Vancomycin and start Cefepime for patient with probable right leg cellulitis in this patient with probable chronic venous stasis - fgrowing gram negative bacilli and we are awaiting identification and sensitivities - follow up further Podiatry evaluation.
[2018-05-07 07:42] LABS: BASO # 0.04 K/mm3 (0.0-2.0); BASO % 0.5 % (0.0-3.0); EOS # 0.2 (0.0-0.7); GRAN # 5.06 (1.4-6.5); GRAN % 68.8 % (50.0-68.0); HEMOGLOBIN 13.2 g/dL (12.0-16.0); LYMPH # 0.9 (1.2-3.4); LYMPH % 12.5 % (22.0-35.0); MEAN CORPUSCULAR HEMOGLOBIN 30.6 pg (25.0-35.0); MEAN CORPUSCULAR HGB CONC 31.6 g/dl (31.0-37.0); MEAN PLATELET VOLUME 9.7 fl (7.0-11.0); MONO # 1.2 (0.1-0.6); MONO % 16.2 % (1.0-6.0); RBC 4.31 10^6/uL (3.5-6.1); RED CELL DISTRIBUTION WIDTH 15.3 % (11.5-14.5); WHITE BLOOD COUNT 7.4 10^3/uL (4.5-11.0)
[2018-05-07 08:03] LABS: ALT/SGPT 29 U/L (7-56); AST/SGOT 26 U/L (14-36); BLOOD UREA NITROGEN 33 mg/dL (7-21); CALCIUM 8.3 mg/dL (8.4-10.5); GFR NON-AFRICAN AMERICAN 60
--- NOTE | 2018-05-07 09:03 | CP.PCM.PN ---
<Alex Cho - Last Filed: 05/07/18 16:46> Subjective - Date & Time of Evaluation Date of Evaluation: 05/07/18 Time of Evaluation: 09:02 - Subjective Subjective: PGY-1 Medicine Progress Note for Dr. Sandoval Patient seen and examined at bedside this AM. No acute overnight events reported. Endorses decreased RLE swelling, redness, pain. No fevers/chills, headaches, dizziness, chest pain, palpitations, sob, cough, abdominal pain, n/v/d/c. Objective - Vital Signs/Intake and Output Vital Signs (last 24 hours): Temp Pulse Resp BP Pulse Ox 98 F 88 18 130/70 95 05/06/18 22:00 05/06/18 22:00 05/06/18 22:00 05/06/18 22:00 05/06/18 22:00 Intake and Output: 05/07/18 05/07/18 06:59 18:59 Intake Total 1400 Balance 1400 - Medications Medications: Current Medications Acetaminophen (Tylenol 325mg Tab) 650 mg PO Q6H PRN PRN Reason: Pain, moderate (4-7) Albuterol/Ipratropium (Duoneb 3 Mg/0.5 Mg (3 Ml) Ud) 3 ml IH [id number] PRN PRN Reason: Shortness of Breath Aspirin (Ecotrin) 81 mg PO DAILY [facility] Last Admin: 05/06/18 10:15 Dose: 81 mg Enoxaparin Sodium (Lovenox) 30 mg SC DAILY [facility]; Protocol Furosemide (Lasix) 20 mg IVP DAILY [facility] Last Admin: 05/06/18 10:15 Dose: 20 mg Vancomycin HCl (Vancomycin 1gm) 1 gm in 250 mls @ 167 mls/hr IVPB DAILY [facility]; Protocol Last Admin: 05/06/18 16:55 Dose: 167 mls/hr - Labs Labs: 05/07/18 07:00 05/07/18 07:00 PT 11.2 SECONDS (9.4-12.5) 05/05/18 13:30 INR 0.98 05/05/18 13:30 APTT 25.3 Seconds (25.1-36.5) 05/05/18 13:30 - Constitutional Appears: Non-toxic, No Acute Distress - Head Exam Head Exam: ATRAUMATIC, NORMAL INSPECTION, NORMOCEPHALIC - Eye Exam Eye Exam: EOMI, Normal appearance - ENT Exam ENT Exam: Mucous Membranes Moist, Normal Exam - Neck Exam Neck Exam: Full ROM, Normal Inspection - Respiratory Exam Respiratory Exam: Clear to Ausculation Bilateral, NORMAL BREATHING PATTERN. absent: Accessory Muscle Use, Rales, Rhonchi, Wheezes, Respiratory Distress, Stridor - Cardiovascular Exam Cardiovascular Exam: REGULAR RHYTHM, +S1, +S2 - GI/Abdominal Exam GI & Abdominal Exam: Soft, Normal Bowel Sounds. absent: Distended, Firm, Guarding, Rigid, Tenderness, Organomegaly, Rebound - Extremities Exam Extremities Exam: Normal Capillary Refill Additional comments: moderate swelling b/l R >L RLE with diminshing erythema, swelling, warmth RLE wound dressing clean/dry/intact - Back Exam Back Exam: NORMAL INSPECTION - Neurological Exam Neurological Exam: Alert, Awake, Oriented x3 - Psychiatric Exam Psychiatric exam: Normal Affect, Normal Mood - Skin Additional comments: as stated above Assessment and Plan - Assessment and Plan (Free Text) Assessment: 82 year old female with a past medical history of COPD who was admitted for evaluation and treatment of RLE cellulitis. Plan: RLE Cellulitis - Patient with improved discomfort on evaluation today - Wound dressing clean/dry/intact - ID Consulted and following - Vancomycin and Podiatry follow up - Podiatry (Dr. Kelsey) recs appreciated -borderline abnormal SIDNEY/PVR: possible right SFA, popliteal, and/or trifurcation disease -Interventional Radiology (Dr. Shaheed Burden) on board -Venous duplex: no DVT Lower Extremity Swelling - Elevated pro-BNP on admission, clinically less suspicious CHF - lower extremity duplex u/s negative for DVT bilaterally - lasix 20mg IV daily- will hold if SBP < 100mmHg - Podiatry consulted (Laure)- appreciate recs - Echocardiogram: normal EF 65-70%, flattened septum consistent with R ventricle volume and pressure overload; severely dilated RV Chronic diastolic CHF, severe pulmonary HTN -Echo with R ventricle volume and pressure overload, severely dilated RV; severe tricuspid regurgitation RVSP 145 mmHg, severe pulmonary HTN -Pulmonology (Dr. Valentine) on board Hx of COPD - duonebs q4 prn SOB - O2 saturation appropriate Prophylaxis - DVT ppx- lovenox - GI ppx- not indicated - HHD Case discussed with Dr. Jaime Cho DO, PGY-1 <Dheeraj Sandoval - Last Filed: 05/07/18 17:37> Objective - Vital Signs/Intake and Output Vital Signs (last 24 hours): Temp Pulse Resp BP Pulse Ox 98 F 90 18 155/87 H 94 L 05/07/18 14:00 05/07/18 14:00 05/07/18 14:00 05/07/18 14:00 05/07/18 06:00 Intake and Output: 05/07/18 05/07/18 06:59 18:59 Intake Total 1400 Balance 1400 - Medications Medications: Current Medications Acetaminophen (Tylenol 325mg Tab) 650 mg PO Q6H PRN PRN Reason: Pain, moderate (4-7) Albuterol/Ipratropium (Duoneb 3 Mg/0.5 Mg (3 Ml) Ud) 3 ml IH [id number] PRN PRN Reason: Shortness of Breath Aspirin (Ecotrin) 81 mg PO DAILY [facility] Last Admin: 05/07/18 12:05 Dose: 81 mg Betamethasone/Clotrimazole (Lotrisone) 0 ml TOP BID [facility] Enoxaparin Sodium (Lovenox) 30 mg SC DAILY [facility]; Protocol Last Admin: 05/07/18 12:06 Dose: 30 mg Furosemide (Lasix) 20 mg IVP DAILY [facility] Last Admin: 05/07/18 12:05 Dose: 20 mg Aztreonam (Azactam 1 Gm) 100 mls @ 100 mls/hr IVPB Q8 [facility]; Protocol Stop: 05/14/18 14:01 Last Admin: 05/07/18 15:12 Dose: 100 mls/hr Vancomycin HCl (Vancomycin 1gm) 1 gm in 250 mls @ 167 mls/hr IVPB Q12 [facility]; Protocol Polyethylene Glycol (Miralax) 17 gm PO DAILY [facility] Last Admin: 05/07/18 15:20 Dose: Not Given - Labs Labs: 05/07/18 07:00 05/07/18 07:00 PT 11.2 SECONDS (9.4-12.5) 05/05/18 13:30 INR 0.98 05/05/18 13:30 APTT 25.3 Seconds (25.1-36.5) 05/05/18 13:30 Attending/Attestation - Attestation I have personally seen and examined this patient.: Yes I have fully participated in the care of the patient.: Yes I have reviewed all pertinent clinical information, including history, physical exam and plan: Yes Notes (Text): 05/07/18 17:36 82 year old female with past medical history of COPD who presented with bilateral LE edema and right leg erythema. She was admitted for cellulitis and started on iv antibiotics. ID and podiatry are following. WCx is growing gram negative rods. LE doppler was negative for DVT; arterial doppler showed borderline abnormal right SIDNEY: possible distal right SFA, popliteal and/or trifurcation disease. IR evaluation is requested. She is on iv lasix. Echocardiogram was reviewed which shows diastolic CHF and significant pulmonary hypertension. Pulmonary evaluation is requested. Dheeraj Sandoval MD Hospitalist.
--- NOTE | 2018-05-07 12:03 | CP.PCM.CON ---
History of Present Illness - History of Present Illness History of Present Illness: Podiatry consult note for Dr. Kelsey 82 yo female with pmhx of COPD seen and evaluated at bedside with Dr. Kelsey for RLE swelling and cellulitis. States she presented to the ED with the same symptoms that had been present since November. States the her right leg is painful and rates the pain a 4/10. States that her pain and swelling has improved since she was admitted to the hospital. States that she had tried OTC medication at home prior to coming to the hospital which did not work for pain or inflammation. She denies N/V/F/C/SOB/CP today and has no other pedal complaints. PMHx - COPD PSHx - denies All - penicillin, shellfish, IV dye Past Patient History - Infectious Disease Hx of Infectious Diseases: None - Past Social History Smoking Status: Never Smoked - CARDIAC Hx Cardiac Disorders: Yes Hx Hypertension: Yes - PULMONARY Hx Respiratory Disorders: Yes Hx Chronic Obstructive Pulmonary Disease (COPD): Yes Hx Pneumonia: Yes - NEUROLOGICAL Hx Neurological Disorder: No - HEENT Hx HEENT Problems: No - RENAL Hx Chronic Kidney Disease: No - ENDOCRINE/METABOLIC Hx Endocrine Disorders: No - HEMATOLOGICAL/ONCOLOGICAL Hx Blood Disorders: No - INTEGUMENTARY Hx Dermatological Problems: No - MUSCULOSKELETAL/RHEUMATOLOGICAL Hx Falls: No - GASTROINTESTINAL Hx Gastrointestinal Disorders: Yes - GENITOURINARY/GYNECOLOGICAL Hx Genitourinary Disorders: No - PSYCHIATRIC Hx Psychophysiologic Disorder: No - SURGICAL HISTORY Hx Surgeries: No Meds Allergies/Adverse Reactions: Allergies Allergy/AdvReac Type Severity Reaction Status Date / Time Penicillins Allergy RASH Verified 05/05/18 13:34 shellfish derived Allergy RASH Verified 05/05/18 13:34 iv dye Allergy RASH Uncoded 05/05/18 13:34 - Medications Medications: Current Medications Acetaminophen (Tylenol 325mg Tab) 650 mg PO Q6H PRN PRN Reason: Pain, moderate (4-7) Albuterol/Ipratropium (Duoneb 3 Mg/0.5 Mg (3 Ml) Ud) 3 ml IH [id number] PRN PRN Reason: Shortness of Breath Aspirin (Ecotrin) 81 mg PO DAILY [facility] Last Admin: 05/06/18 10:15 Dose: 81 mg Betamethasone/Clotrimazole (Lotrisone) 0 ml TOP BID [facility] Enoxaparin Sodium (Lovenox) 30 mg SC DAILY [facility]; Protocol Furosemide (Lasix) 20 mg IVP DAILY [facility] Last Admin: 05/06/18 10:15 Dose: 20 mg Vancomycin HCl (Vancomycin 1gm) 1 gm in 250 mls @ 167 mls/hr IVPB DAILY [facility]; Protocol Last Admin: 05/06/18 16:55 Dose: 167 mls/hr Polyethylene Glycol (Miralax) 17 gm PO DAILY [facility] Physical Exam - Constitutional Appears: Well, Non-toxic, No Acute Distress - Head Exam Head Exam: ATRAUMATIC, NORMOCEPHALIC - Extremities Exam Additional comments: Vasc: DP and PT pulses are faintly palpable 1/4; temp gradient warm to cool from proximal to distal b/l; cap refill <3 seconds to all digits; nonpitting edema present b/l R>L Derm: open superficial wound present at the right posterior lower leg proximal to the ankle joint; base is granular; dermatitis appreciated along with cellulitis about the right lower leg; mycotic toenails present to all digits b/l; wound base has serous drainage, no pus associated or purulent drainage; no tunneling, streaking or tracking noted Ortho: pain on palpation to the right lower leg wound; no other gross pathology noted b/l Neuro: sensation intact b/l - Neurological Exam Neurological exam: Alert, Oriented x3 - Psychiatric Exam Psychiatric exam: Normal Affect, Normal Mood Results - Vital Signs Recent Vital Signs: Last Vital Signs Temp 98.3 F 05/07/18 06:00 Pulse 84 05/07/18 06:00 Resp 18 05/07/18 06:00 BP 133/75 05/07/18 06:00 Pulse Ox 94 L 05/07/18 06:00 - Labs Result Diagrams: 05/07/18 07:00 05/07/18 07:00 Labs: Laboratory Results - last 24 hr 05/07/18 05/07/18 07:00 07:00 WBC 7.4 RBC 4.31 Hgb 13.2 Hct 41.8 MCV 97.0 MCH 30.6 MCHC 31.6 RDW 15.3 H Plt Count 244 MPV 9.7 Gran % 68.8 H Lymph % (Auto) 12.5 L [place] % (Auto) 16.2 H Eos % (Auto) 2.0 Baso % (Auto) 0.5 Gran # 5.06 Lymph # (Auto) 0.9 L [place] # (Auto) 1.2 H Eos # (Auto) 0.2 Baso # (Auto) 0.04 Sodium 135 Potassium 4.5 Chloride 99 Carbon Dioxide 31 Anion Gap 10 BUN 33 H Creatinine 0.9 Est GFR ( Amer) > 60 Est GFR (Non-Af Amer) 60 Random Glucose 85 Calcium 8.3 L Total Bilirubin 0.6 AST 26 ALT 29 Alkaline Phosphatase 51 Total Protein 6.1 Albumin 3.0 Globulin 3.1 Albumin/Globulin Ratio 1.0 L Assessment & Plan - Assessment and Plan (Free Text) Assessment: 82 yo female with pmhx of COPD evaluated for right lower leg wound and cellulitis Plan: Patient seen and evaluated with Dr. Kelsey Charts and labs reviewed - afebrile, absent leukocytosis Right leg wound cx - gram negative addy SIDNEY/PVR - possible right SFA, popliteal, and/or trifurcation disease Venous duplex - no DVT Wound cleansed with clorhexadine wipes and dressed with adaptic and DSD Lotrisone cream ordered for topical application daily b/l legs Spoke with medicine team, consult with Dr. Burden regarding abnormal arterial duplex studies Contine abx per medicine Podiatry will continue to follow while in house Thank you for the consult - Date & Time Date: 05/07/18 Time: 12:12
[2018-05-07] MEDS: Vancomycin 1gm in NS 250ml 1 GM/250 ML BAG IVPB SCH ×2 (12:04→21:36)
[2018-05-07] MEDS: Enoxaparin 30 mg Syringe SC SCH (12:06)
--- NOTE | 2018-05-07 12:17 | PQF ---
PROVIDER RESPONSE TEXT: Chronic diastolic CHF REVIEWER QUERY TEXT: CHF Acuity and Type Congestive Heart Failure is documented in the Medical Record. Please document the type and acuity (in cludes probable or suspected) Such as: Type: -- Systolic -- Diastolic -- Combined -- Other, please specify Acuity: -- Acute -- Chronic -- Acute on chronic -- Other, please specify Also please document the underlying cause of the CHF (includes probable or suspected) The patient's Clinical Indicators include: Admitted w/ elevated BNP, ECHO- The left ventricular function is normal.EF-65-70% There is a flattened septum consistent with right ventricle volume and pressure overload. Query created by: Hina Thomas on 05/07/2018 11:47 AM Electronically signed by: Dheeraj Sandoval MD 05/07/2018 12:14 PM
[2018-05-07] MEDS: Aztreonam 1 Gm in NS 100mL 100 ML IVPB SCH ×2 (15:12→21:35)
[2018-05-07] MEDS: POLYETHYLENE GLYCOL 3350 17 GM/Dose PACKET PO SCH ×2 (15:12→15:20)
[2018-05-07] MEDS: Clotrimazole/Betamethasone Lotion(30 ml) TOP SCH (18:32)
--- NOTE | 2018-05-07 23:01 | CON ---
DATE: 05/07/2018 REASON FOR CONSULTATION: Chronic obstructive lung disease, severe pulmonary hypertension. HISTORY OF PRESENT ILLNESS: This is an 82-year-old female with known history of chronic obstructive lung disease, has a chronic stasis dermatitis admitted with right lower extremity cellulitis. Wound culture has been positive. Has a history of rhinitis, postnasal drip, cough, sputum production. She is more passive smoker. No hemoptysis or emesis. No hematuria. Short of breath with minimal exertion. Has a chest x-ray done which shows severe pulmonary hypertension with diastolic cardiac dysfunction. PAST MEDICAL HISTORY: Chronic obstructive lung disease, chronic lower extremity stasis dermatitis. ALLERGIES: TO PENICILLIN, SHELLFISH, AND IV CONTRAST MATERIAL. SOCIAL HISTORY: Stopped smoking many years ago, but she has a secondhand smoking on top of her smoking. Denies any alcohol abuse. FAMILY HISTORY: No significant cardiopulmonary disease reported. MEDICATIONS: She is on Azactam 1 g IV every 8 hours, albuterol/Atrovent nebulizer every 4 hours p.r.n., Ecotrin 81 mg daily, Lasix 20 mg IV daily, Lotrisone to affected area, Lovenox 30 mg subcu daily, MiraLax 17 g daily, Tylenol p.r.n., vancomycin 1 g IV every 12 hours. REVIEW OF SYSTEMS: No headache. Has some rhinitis, postnasal drip, cough, shortness of breath, wheezing. No chest pain. No nausea, no vomiting, no diarrhea. Has a oozing skin breakdown on the right lower extremity with swelling and erythema. PHYSICAL EXAMINATION: VITAL SIGNS: Temperature is 98, heart rate 90, respiratory is 20, blood pressure 155/87, pulse of 94% on nasal cannula. HEENT: Moist mucous membranes. Small oral cavity. Crowded airway. NECK: Supple. No JVD. LUNGS: Has a poor effort. Scattered rhonchi, wheezing and crackles. HEART: S1 and S2. ABDOMEN: Soft, nontender, no organomegaly. EXTREMITIES: Has a dressing on the right lower extremity, has erythema. SKIN: Skin breakdown with oozing of serous fluid. NEUROLOGIC: Awake and follows simple commands. LABORATORY DATA: Shows hemoglobin 13.2, hematocrit 41.8, WBC 7.4, platelet is 244,000. INR 0.92. PTT 25. Sodium 135, potassium 4.5, chloride 99, bicarbonate 31, BUN 33, creatinine 0.9, glucose 85, calcium is 8.3, AST 26, ALT 29, alk phos is 51. ProBNP 8030. Albumin is 3.0. Microbiology, blood culture negative. Urine culture negative. Leg wound has gram-negative rods. DIAGNOSTIC DATA: Echocardiogram shows good LV function, severe pulmonary hypertension. Venous Doppler negative for DVT. Chest x-ray shows no active pulmonary disease other than moderate cardiomegaly. IMPRESSION AND PLAN: Chronic obstructive lung disease, recurrent chronic sinusitis, postnasal drip, may have sleep apnea syndrome, severe pulmonary hypertension, right leg cellulitis with stasis dermatitis. Agree with the present management. Continue antibiotics, add IV and inhaled bronchodilator. We will get VQ scan, rule out thromboembolic disease. Also, CT of the chest without contrast to evaluate the lung parenchyma. May need sleep study upon discharge as outpatient, also need PFT as outpatient. Thank you and we will follow with you. Ban Valentine MD
[2018-05-08] MEDS: MethylPREDNISolone 40 mg Vial IVP SCH ×2 (00:26→10:18)
[2018-05-08] MEDS: Aztreonam 1 Gm in NS 100mL 100 ML IVPB SCH ×2 (06:23→14:03)
--- NOTE | 2018-05-08 06:35 | CP.PCM.PN ---
<Yeimy Soriano - Last Filed: 05/08/18 11:49> Subjective - Date & Time of Evaluation Date of Evaluation: 05/08/18 Time of Evaluation: 07:00 - Subjective Subjective: Infectious Disease Progress Note for Fercho Murcia PGY3 Patient seen and examined at bedside. She afebrile and is resting comfortably in bed. She has no complaints at this time. Objective - Vital Signs/Intake and Output Vital Signs (last 24 hours): Temp Pulse Resp BP Pulse Ox 98.3 F 95 H 20 181/85 H 94 L 05/07/18 23:21 05/07/18 23:21 05/07/18 23:21 05/07/18 23:21 05/07/18 06:00 Intake and Output: 05/07/18 05/08/18 18:59 06:59 Intake Total 970 Balance 970 - Medications Medications: Current Medications Acetaminophen (Tylenol 325mg Tab) 650 mg PO Q6H PRN PRN Reason: Pain, moderate (4-7) Acetylcysteine (Acetylcysteine 20%) 3 ml INH BIDRESP [facility] Albuterol/Ipratropium (Duoneb 3 Mg/0.5 Mg (3 Ml) Ud) 3 ml IH [id number] PRN PRN Reason: Shortness of Breath Arformoterol Tartrate (Brovana) 15 mcg IH [id number] [facility] Aspirin (Ecotrin) 81 mg PO DAILY [facility] Last Admin: 05/07/18 12:05 Dose: 81 mg Betamethasone/Clotrimazole (Lotrisone) 0 ml TOP BID [facility] Last Admin: 05/07/18 18:32 Dose: 1 applic Budesonide (Pulmicort Respules) 0.5 mg IH [id number] [facility] Enoxaparin Sodium (Lovenox) 30 mg SC DAILY [facility]; Protocol Last Admin: 05/07/18 12:06 Dose: 30 mg Furosemide (Lasix) 20 mg IVP DAILY [facility] Last Admin: 05/07/18 12:05 Dose: 20 mg Aztreonam (Azactam 1 Gm) 100 mls @ 100 mls/hr IVPB Q8 [facility]; Protocol Stop: 05/14/18 14:01 Last Admin: 05/08/18 06:23 Dose: 100 mls/hr Vancomycin HCl (Vancomycin 1gm) 1 gm in 250 mls @ 167 mls/hr IVPB Q12 [facility]; Protocol Last Admin: 05/07/18 21:36 Dose: 167 mls/hr Methylprednisolone (Solu-Medrol) 40 mg IVP Q12 [facility] Last Admin: 05/08/18 00:26 Dose: 40 mg Montelukast Sodium (Singulair) 10 mg PO HS [facility] Polyethylene Glycol (Miralax) 17 gm PO DAILY [facility] Last Admin: 05/07/18 15:20 Dose: Not Given - Labs Labs: 05/07/18 07:00 05/07/18 07:00 PT 11.2 SECONDS (9.4-12.5) 05/05/18 13:30 INR 0.98 05/05/18 13:30 APTT 25.3 Seconds (25.1-36.5) 05/05/18 13:30 - Constitutional Appears: No Acute Distress - Head Exam Head Exam: ATRAUMATIC, NORMAL INSPECTION, NORMOCEPHALIC - Eye Exam Eye Exam: Normal appearance, PERRL Pupil Exam: NORMAL ACCOMODATION, PERRL - ENT Exam ENT Exam: Mucous Membranes Moist - Respiratory Exam Respiratory Exam: Clear to Ausculation Bilateral, NORMAL BREATHING PATTERN. absent: Rales, Rhonchi, Wheezes - Cardiovascular Exam Cardiovascular Exam: REGULAR RHYTHM, +S1, +S2, Murmur. absent: Gallop, Rubs - GI/Abdominal Exam GI & Abdominal Exam: Soft, Normal Bowel Sounds. absent: Rigid, Tenderness, Mass, Rebound - Extremities Exam Extremities Exam: Pedal Edema. absent: Tenderness Additional comments: LLE has L sided wound with purulent drainage. Bilateral LE erythema. - Neurological Exam Neurological Exam: Alert, Awake, CN II-XII Intact, Oriented x3 - Psychiatric Exam Psychiatric exam: Normal Affect, Normal Mood - Skin Skin Exam: Dry, Warm Assessment and Plan - Assessment and Plan (Free Text) Assessment: 1. LLE puruelent cellulitis 2. COPD 3. Diastolic CHF Plan: Labs and imaging reviewed. Culture positive for pseudomonas and gram negative addy. Psedumonas is sensitive to Cipro. Qtc is 447. Will await sensitivity of second gram negative addy before switching to PO. Patient is on Azactam and Vancomycin day #2. Patient will need to complete 7 days total of antibiotics. Case seen, discussed and reviewed with Dr. Martha Soriano PGY3 <Freddy Thomas - Last Filed: 05/08/18 12:53> Objective - Vital Signs/Intake and Output Vital Signs (last 24 hours): Temp Pulse Resp BP Pulse Ox 97.3 F L 79 18 123/66 95 05/08/18 07:00 05/08/18 07:23 05/08/18 07:00 05/08/18 10:18 05/08/18 07:00 Intake and Output: 05/08/18 05/08/18 06:59 18:59 Intake Total 970 Balance 970 - Medications Medications: Current Medications Acetaminophen (Tylenol 325mg Tab) 650 mg PO Q6H PRN PRN Reason: Pain, moderate (4-7) Acetylcysteine (Acetylcysteine 20%) 3 ml INH BIDRESP [facility] Last Admin: 05/08/18 07:23 Dose: 3 ml Albuterol/Ipratropium (Duoneb 3 Mg/0.5 Mg (3 Ml) Ud) 3 ml IH [id number] PRN PRN Reason: Shortness of Breath Arformoterol Tartrate (Brovana) 15 mcg IH [id number] [facility] Last Admin: 05/08/18 07:24 Dose: 15 mcg Aspirin (Ecotrin) 81 mg PO DAILY [facility] Last Admin: 05/08/18 10:18 Dose: 81 mg Betamethasone/Clotrimazole (Lotrisone) 0 ml TOP BID [facility] Last Admin: 05/08/18 10:58 Dose: 1 applic Budesonide (Pulmicort Respules) 0.5 mg IH [id number] [facility] Last Admin: 05/08/18 07:24 Dose: 0.5 mg Enoxaparin Sodium (Lovenox) 30 mg SC DAILY [facility]; Protocol Last Admin: 05/08/18 10:18 Dose: 30 mg Furosemide (Lasix) 20 mg IVP DAILY [facility] Last Admin: 05/08/18 10:18 Dose: 20 mg Aztreonam (Azactam 1 Gm) 100 mls @ 100 mls/hr IVPB Q8 [facility]; Protocol Stop: 05/14/18 14:01 Last Admin: 05/08/18 06:23 Dose: 100 mls/hr Vancomycin HCl (Vancomycin 1gm) 1 gm in 250 mls @ 167 mls/hr IVPB Q12 [facility]; Protocol Last Admin: 05/08/18 10:17 Dose: 167 mls/hr Methylprednisolone (Solu-Medrol) 40 mg IVP Q12 [facility] Last Admin: 05/08/18 10:18 Dose: 40 mg Montelukast Sodium (Singulair) 10 mg PO HS [facility] Polyethylene Glycol (Miralax) 17 gm PO DAILY [facility] Last Admin: 05/08/18 10:18 Dose: 17 gm - Labs Labs: 05/08/18 07:00 05/08/18 07:00 PT 11.2 SECONDS (9.4-12.5) 05/05/18 13:30 INR 0.98 05/05/18 13:30 APTT 25.3 Seconds (25.1-36.5) 05/05/18 13:30 Assessment and Plan - Assessment and Plan (Free Text) Plan: Infectious Diseases Attending Physician Attestation Patient seen and examined, discussed with medical technicians. I have reviewed the patient's history of present illness, past medical, family and social histories, personal history, physical exam, lab findings and imaging studies. I agree with the above findings, assessment and plan. In addition, will continue Vancomycin and Cefepime day 2 for patient with probable right leg cellulitis with Pse udomonas in this patient with probable chronic venous stasis - follow up further Podiatry evaluation. Should complete 7-10 days of antibiotics.
[2018-05-08 07:29] LABS: BASO # 0.01 K/mm3 (0.0-2.0); BASO % 0.2 % (0.0-3.0); EOS % 0.2 % (1.5-5.0); GRAN # 6.04 (1.4-6.5); GRAN % 93.4 % (50.0-68.0); HEMOGLOBIN 13.1 g/dL (12.0-16.0); LYMPH # 0.3 (1.2-3.4); MEAN CELL VOLUME 98.2 fl (80.0-105.0); MEAN CORPUSCULAR HEMOGLOBIN 30.3 pg (25.0-35.0); MEAN CORPUSCULAR HGB CONC 30.8 g/dl (31.0-37.0); MEAN PLATELET VOLUME 9.3 fl (7.0-11.0); MONO # 0.1 (0.1-0.6); MONO % 1.2 % (1.0-6.0); PLATELET COUNT 226 10^3/uL (120.0-450.0); RBC 4.33 10^6/uL (3.5-6.1); RED CELL DISTRIBUTION WIDTH 14.7 % (11.5-14.5); WHITE BLOOD COUNT 6.5 10^3/uL (4.5-11.0)
[2018-05-08 07:40] LABS: ALBUMIN 3.1 g/dL (3.0-4.8); ALT/SGPT 31 U/L (7-56); AST/SGOT 33 U/L (14-36); BLOOD UREA NITROGEN 28 mg/dL (7-21); CALCIUM 8.2 mg/dL (8.4-10.5); GFR NON-AFRICAN AMERICAN > 60
[2018-05-08] MEDS ORDERED: Acetylcysteine 20% Inhal Soln (4ml) INH SCH (08:00)
[2018-05-08] MEDS ORDERED: Budesonide 0.5 mg/2 ml Inhal Susp UD IH SCH (08:00)
[2018-05-08] MEDS ORDERED: Arformoterol 15 mcg/2 ml Inh Sol IH SCH (08:00)
[2018-05-08 08:29] LABS: LYMPHOCYTE 3 % (22.0-35.0); MONOCYTE 1 % (1.0-6.0); NEUTROPHIL 96 % (50.0-70.0); PLATELET ESTIMATE NORMAL (NORMAL)
[2018-05-08 09:38] VITALS: RESP 18; O2SAT 95
--- NOTE | 2018-05-08 10:01 | CP.PCM.PN ---
Subjective - Date & Time of Evaluation Date of Evaluation: 05/08/18 Time of Evaluation: 09:58 - Subjective Subjective: Podiatry consult note for Dr. Kelsey 82 yo female with seen and evaluated at bedside with Dr. Kelsey. Seen resting comfortably. States she is in minimal pain today as her condition is improving. States that it is her fault that her leg got this bad and that she needs to find a new group of doctors as she has tried to manage her health herself. She denies N/V/F/C/SOB/CP today and has no other pedal complaints. Denies any acute events overnight. Objective - Vital Signs/Intake and Output Vital Signs (last 24 hours): Temp Pulse Resp BP Pulse Ox 97.3 F L 79 18 123/66 95 05/08/18 07:00 05/08/18 07:23 05/08/18 07:00 05/08/18 07:00 05/08/18 07:00 Intake and Output: 05/08/18 05/08/18 06:59 18:59 Intake Total 970 Balance 970 - Medications Medications: Current Medications Acetaminophen (Tylenol 325mg Tab) 650 mg PO Q6H PRN PRN Reason: Pain, moderate (4-7) Acetylcysteine (Acetylcysteine 20%) 3 ml INH BIDRESP [facility] Last Admin: 05/08/18 07:23 Dose: 3 ml Albuterol/Ipratropium (Duoneb 3 Mg/0.5 Mg (3 Ml) Ud) 3 ml IH [id number] PRN PRN Reason: Shortness of Breath Arformoterol Tartrate (Brovana) 15 mcg IH [id number] [facility] Last Admin: 05/08/18 07:24 Dose: 15 mcg Aspirin (Ecotrin) 81 mg PO DAILY [facility] Last Admin: 05/07/18 12:05 Dose: 81 mg Betamethasone/Clotrimazole (Lotrisone) 0 ml TOP BID [facility] Last Admin: 05/07/18 18:32 Dose: 1 applic Budesonide (Pulmicort Respules) 0.5 mg IH [id number] [facility] Last Admin: 05/08/18 07:24 Dose: 0.5 mg Enoxaparin Sodium (Lovenox) 30 mg SC DAILY [facility]; Protocol Last Admin: 05/07/18 12:06 Dose: 30 mg Furosemide (Lasix) 20 mg IVP DAILY [facility] Last Admin: 05/07/18 12:05 Dose: 20 mg Aztreonam (Azactam 1 Gm) 100 mls @ 100 mls/hr IVPB Q8 [facility]; Protocol Stop: 05/14/18 14:01 Last Admin: 05/08/18 06:23 Dose: 100 mls/hr Vancomycin HCl (Vancomycin 1gm) 1 gm in 250 mls @ 167 mls/hr IVPB Q12 [facility]; Protocol Last Admin: 05/07/18 21:36 Dose: 167 mls/hr Methylprednisolone (Solu-Medrol) 40 mg IVP Q12 [facility] Last Admin: 05/08/18 00:26 Dose: 40 mg Montelukast Sodium (Singulair) 10 mg PO HS [facility] Polyethylene Glycol (Miralax) 17 gm PO DAILY [facility] Last Admin: 05/07/18 15:20 Dose: Not Given - Labs Labs: 05/08/18 07:00 05/08/18 07:00 PT 11.2 SECONDS (9.4-12.5) 05/05/18 13:30 INR 0.98 05/05/18 13:30 APTT 25.3 Seconds (25.1-36.5) 05/05/18 13:30 - Constitutional Appears: Well, Non-toxic, No Acute Distress - Extremities Exam Additional comments: Vasc: DP and PT pulses are faintly palpable 1/4; temp gradient warm to cool from proximal to distal b/l; cap refill <3 seconds to all digits; nonpitting edema present b/l R>L Derm: open superficial wound present at the right posterior lower leg proximal to the ankle joint; base is granular; dermatitis appreciated along with cellulitis about the right lower leg - significant improvement from yesterdays findings; 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 Kelsey Charts and labs reviewed - afebrile, absent leukocytosis Right leg wound cx - gram negative addy SIDNEY/PVR - possible right SFA, popliteal, and/or trifurcation disease Venous duplex - no DVT Wound cleansed with clorhexadine wipes and dressed with adaptic and DSD Lotrisone cream ordered for topical application daily b/l legs Contine abx per medicine Plan for TCU today - stable for transfer from podiatry standpoint, will continue to follow
[2018-05-08] MEDS: Vancomycin 1gm in NS 250ml 1 GM/250 ML BAG IVPB SCH (10:17)
[2018-05-08] MEDS: POLYETHYLENE GLYCOL 3350 17 GM/Dose PACKET PO SCH (10:18)
[2018-05-08] MEDS: Enoxaparin 30 mg Syringe SC SCH (10:18)
[2018-05-08] MEDS: Clotrimazole/Betamethasone Lotion(30 ml) TOP SCH ×2 (10:58→17:38)
--- NOTE | 2018-05-08 11:22 | CT ---
Date of service: 05/08/2018 PROCEDURE: CT Chest without contrast HISTORY: chronic lung disease COMPARISON: None available. TECHNIQUE: Contiguous axial images were obtained through the chest without intravenous contrast enhancement. Sagittal and coronal reconstructions were performed. Radiation dose: Total exam DLP = 174.94 mGy-cm. This CT exam was performed using one or more of the following dose reduction techniques: Automated exposure control, adjustment of the mA and/or kV according to patient size, and/or use of iterative reconstruction technique. FINDINGS: LUNGS: Emphysematous changes are seen in the lungs. There is some consolidation adjacent to the right pleural effusion MEDIASTINUM: Unremarkable thoracic aorta. No aneurysm. Normal sized heart. Main pulmonary artery unremarkable. No vascular congestion. No lymphadenopathy. Extensive aortic calcification. Heavily calcified mitral valve PLEURA: Moderate bilateral pleural effusions are seen. There is also a pericardial effusion measuring 10 mm in thickness. BONES: No fracture. No destructive lesion. UPPER ABDOMEN: Hiatal hernia OTHER FINDINGS: None. IMPRESSION: Moderate bilateral pleural effusions right greater than left. Pericardial effusion measuring 10 mm in thickness. Emphysema. Small amount of atelectasis adjacent to the right pleural effusion.
[2018-05-08 14:58] VITALS: BP 146/74; PULSE 82; TEMP 97.4
--- NOTE | 2018-05-08 18:38 | CP.PCM.DIS ---
<MarquisAlex - Last Filed: 05/08/18 18:49> Provider - Provider Date of Admission: 05/05/18 15:46 Attending physician: Dheeraj Sandoval MD Time Spent in preparation of Discharge (in minutes): 40 Hospital Course - Lab Results Lab Results: Micro Results 05/05/18 14:10 Blood-Venous Blood Culture - Preliminary NO GROWTH AFTER 3 DAYS 05/05/18 13:30 Blood-Venous Blood Culture - Preliminary NO GROWTH AFTER 3 DAYS 05/06/18 13:00 Leg - Right Gram Stain - Final 05/06/18 13:00 Leg - Right Wound Culture - Preliminary Pseudomonas Aeruginosa Gram Negative Jacinto#2 05/05/18 15:34 Urine Urine Culture - Final No Growth (<1,000 CFU/ML) Most Recent Lab Values WBC 6.5 10^3/uL (4.5-11.0) 05/08/18 07:00 RBC 4.33 10^6/uL (3.5-6.1) 05/08/18 07:00 Hgb 13.1 g/dL (12.0-16.0) 05/08/18 07:00 Hct 42.5 % (36.0-48.0) 05/08/18 07:00 MCV 98.2 fl (80.0-105.0) 05/08/18 07:00 MCH 30.3 pg (25.0-35.0) 05/08/18 07:00 MCHC 30.8 g/dl (31.0-37.0) L 05/08/18 07:00 RDW 14.7 % (11.5-14.5) H 05/08/18 07:00 Plt Count 226 10^3/uL (120.0-450.0) 05/08/18 07:00 MPV 9.3 fl (7.0-11.0) 05/08/18 07:00 Gran % 93.4 % (50.0-68.0) H 05/08/18 07:00 Lymph % (Auto) 5.0 % (22.0-35.0) L 05/08/18 07:00 Overton % (Auto) 1.2 % (1.0-6.0) 05/08/18 07:00 Eos % (Auto) 0.2 % (1.5-5.0) L 05/08/18 07:00 Baso % (Auto) 0.2 % (0.0-3.0) 05/08/18 07:00 Gran # 6.04 (1.4-6.5) 05/08/18 07:00 Lymph # (Auto) 0.3 (1.2-3.4) L 05/08/18 07:00 Overton # (Auto) 0.1 (0.1-0.6) 05/08/18 07:00 Eos # (Auto) 0.0 (0.0-0.7) 05/08/18 07:00 Baso # (Auto) 0.01 K/mm3 (0.0-2.0) 05/08/18 07:00 Neutrophils % (Manual) 96 % (50.0-70.0) H 05/08/18 07:00 Lymphocytes % (Manual) 3 % (22.0-35.0) L 05/08/18 07:00 Monocytes % (Manual) 1 % (1.0-6.0) 05/08/18 07:00 Platelet Evaluation Normal (NORMAL) 05/08/18 07:00 PT 11.2 SECONDS (9.4-12.5) 05/05/18 13:30 INR 0.98 05/05/18 13:30 APTT 25.3 Seconds (25.1-36.5) 05/05/18 13:30 Sodium 138 mmol/L (132-148) 05/08/18 07:00 Potassium 4.6 mmol/L (3.6-5.0) 05/08/18 07:00 Chloride 99 mmol/L (98-107) 05/08/18 07:00 Carbon Dioxide 37 mmol/L (21-33) H 05/08/18 07:00 Anion Gap 7 (10-20) L 05/08/18 07:00 BUN 28 mg/dL (7-21) H 05/08/18 07:00 Creatinine 0.8 mg/dl (0.7-1.2) 05/08/18 07:00 Est GFR ( Amer) > 60 05/08/18 07:00 Est GFR (Non-Af Amer) > 60 05/08/18 07:00 Random Glucose 125 mg/dL (70-110) H 05/08/18 07:00 Hemoglobin A1c 5.6 % (4.2-6.5) 05/05/18 16:00 Calcium 8.2 mg/dL (8.4-10.5) L 05/08/18 07:00 Phosphorus 3.5 mg/dL (2.5-4.5) 05/06/18 06:30 Magnesium 1.7 mg/dL (1.7-2.2) 05/06/18 06:30 Total Bilirubin 0.3 mg/dL (0.2-1.3) 05/08/18 07:00 AST 33 U/L (14-36) 05/08/18 07:00 ALT 31 U/L (7-56) 05/08/18 07:00 Alkaline Phosphatase 52 U/L (38-126) 05/08/18 07:00 NT-Pro-B Natriuret Pep 8030 pg/mL (0-450) H 05/06/18 06:30 Total Protein 6.1 g/dL (5.8-8.3) 05/08/18 07:00 Albumin 3.1 g/dL (3.0-4.8) 05/08/18 07:00 Globulin 3.0 gm/dL 05/08/18 07:00 Albumin/Globulin Ratio 1.0 (1.1-1.8) L 05/08/18 07:00 Triglycerides 55 mg/dL (35-160) 05/05/18 15:22 Cholesterol 148 mg/dL (130-200) 05/05/18 15:22 LDL Cholesterol Direct 73 mg/dL (0-129) 05/05/18 15:22 HDL Cholesterol 67 mg/dL (29-60) H 05/05/18 15:22 Urine Color Yellow (YELLOW) 05/05/18 15:34 Urine Appearance Clear (CLEAR) 05/05/18 15:34 Urine pH 6.0 (4.7-8.0) 05/05/18 15:34 Ur Specific Monarch 1.020 (1.005-1.035) 05/05/18 15:34 Urine Protein Trace mg/dL (<30 mg/dL) H 05/05/18 15:34 Urine Glucose (UA) Negative mg/dL (NEGATIVE) 05/05/18 15:34 Urine Ketones Negative mg/dL (NEGATIVE) 05/05/18 15:34 Urine Blood Negative (NEGATIVE) 05/05/18 15:34 Urine Nitrate Negative (NEGATIVE) 05/05/18 15:34 Urine Bilirubin Negative (NEGATIVE) 05/05/18 15:34 Urine Urobilinogen 0.2 E.U./dL (<1 E.U./dL) 05/05/18 15:34 Ur Leukocyte Esterase Small Jackelin/uL (NEGATIVE) H 05/05/18 15:34 Urine RBC 0 - 2 /hpf (0-2) 05/05/18 15:34 Urine WBC 5 - 10 /hpf (0-6) 05/05/18 15:34 Ur Epithelial Cells 3 - 4 /hpf (0-5) 05/05/18 15:34 Urine Bacteria Mod (NEG) 05/05/18 15:34 - Hospital Course Hospital Course: HPI: Patient is a 82 year old female with a past medical history of COPD who presents to the emergency department for evaluation and treatment of leg swelling/rash and difficulty with ambulation. States the symptoms began in November. Admits to having cuts and bug bites on lower extremity since onset. Admits to localized right lower extremity pain, rated a 5/10 at baseline, and characterized as a dull aching sensation. States swelling, erythema, and pain have gradually worsened since onset. Patient has not received medical attention for aforementioned symptoms nor has tried OTC medications/treatments. Unable to ambulate without overt difficulty. Admits to baseline shortness of breath. Does not take home nebulizer treatment for several years due to expense. Denies fever, chills, chest pain, shortness of breath, abdominal pain, nausea, vomiting, diarrhea, constipation, and urinary symptoms. During the course of admission: Patient presented with elevated pro-BNP levels. Lower extremity duplex ultrasound was negative for DVT bilaterally. Patient was placed on IV lasix 20 mg daily. Infectious Disease and Podiatry followed the patient for right lower extremity cellulitis. Blood and urine cultures obtained demonstrated no growth. Wound cultures obtained demonstrated growth of pseudomonas aeruginosa. Per Infectious disease recommendations, patient to continue vancomycin and cefepime, should complete 7-10 days of antibiotics. Arterial dopplers obtained showed borderline abnormal right SIDNEY with possible distal right superficial femoral artery, popliteal and/or trifurcation disease. Echocardiogram was reviewed which showed diastolic congestive heart failure and significant pulmonary hypertension. Pulmonology was consulted, which recommended V/Q scan to rule out thromboembolic disease as well as CT of the chest without contrast to evaluate the lung parenchyma. CT of the chest demonstrated moderate bilateral pleural effusions, right greater than left, with pericardial effusion measuring 10 mm in thickness. Emphyseam noted, small amount of atelectasis adjacent to the right pleural effusion. Patient recommended to follow up with pulmonary as outpatient for possible sleep study and pulmonary function tests. While on the floor, patient remained afebrile with no leukocytosis. Lower extremity swelling was noted to have improved with decreased erythema and tenderness. Per podiatry, wound was cleansed with clorhexadine wipes and dressed with adaptic and DSD. Lotrisone cream was ordered for topical application daily to legs bilaterally. Patient was cleared for discharge to TCU. Patient to continue all medications as prescribed. The following is a summary of hospital course. For further detail, please refer to EMR. - Date & Time of H&P Date of H&P: 05/08/18 Time of H&P: 18:17 Discharge Exam - Head Exam Head Exam: ATRAUMATIC, NORMAL INSPECTION, NORMOCEPHALIC - Eye Exam Eye Exam: EOMI, Normal appearance Pupil Exam: NORMAL ACCOMODATION - ENT Exam ENT Exam: Mucous Membranes Moist, Normal Exam - Neck Exam Neck exam: Full Rom, Normal Inspection - Respiratory Exam Respiratory Exam: Clear to PA & Lateral, NORMAL BREATHING PATTERN, UNREMARKABLE. absent: Accessory Muscle Use, Rales, Rhonchi, Wheezes, Respiratory Distress, Stridor - Cardiovascular Exam Cardiovascular Exam: REGULAR RHYTHM, +S1, +S2 - GI/Abdominal Exam GI & Abdominal Exam: Normal Bowel Sounds, Soft, Unremarkable. absent: Distended, Firm, Guarding, Rebound, Rigid, Tenderness - Extremities Exam Extremities exam: normal capillary refill, normal inspection, pedal pulses present - Back Exam Back exam: NORMAL INSPECTION - Neurological Exam Neurological exam: Alert, CN II-XII Intact, Oriented x3 - Psychiatric Exam Psychiatric exam: Normal Affect, Normal Mood - Skin Additional comments: moderate swelling b/l R >L RLE with diminshing erythema, swelling, warmth RLE wound dressing clean/dry/intact Discharge Plan - Follow Up Plan Condition: FAIR Disposition: TRANSF TO SNF Instructions: Cellulitis (ED) Additional Instructions: Patient discharged to TCU. <Dheeraj Sandoval A - Last Filed: 05/09/18 07:55> Provider - Provider Date of Admission: 05/05/18 15:46 Attending physician: Dheeraj Sandoval MD Hospital Course - Lab Results Lab Results: Micro Results 05/05/18 14:10 Blood-Venous Blood Culture - Preliminary NO GROWTH AFTER 3 DAYS 05/05/18 13:30 Blood-Venous Blood Culture - Preliminary NO GROWTH AFTER 3 DAYS 05/06/18 13:00 Leg - Right Gram Stain - Final 05/06/18 13:00 Leg - Right Wound Culture - Preliminary Pseudomonas Aeruginosa Gram Negative Jacinto#2 05/05/18 15:34 Urine Urine Culture - Final No Growth (<1,000 CFU/ML) Most Recent Lab Values WBC 6.5 10^3/uL (4.5-11.0) 05/08/18 07:00 RBC 4.33 10^6/uL (3.5-6.1) 05/08/18 07:00 Hgb 13.1 g/dL (12.0-16.0) 05/08/18 07:00 Hct 42.5 % (36.0-48.0) 05/08/18 07:00 MCV 98.2 fl (80.0-105.0) 05/08/18 07:00 MCH 30.3 pg (25.0-35.0) 05/08/18 07:00 MCHC 30.8 g/dl (31.0-37.0) L 05/08/18 07:00 RDW 14.7 % (11.5-14.5) H 05/08/18 07:00 Plt Count 226 10^3/uL (120.0-450.0) 05/08/18 07:00 MPV 9.3 fl (7.0-11.0) 05/08/18 07:00 Gran % 93.4 % (50.0-68.0) H 05/08/18 07:00 Lymph % (Auto) 5.0 % (22.0-35.0) L 05/08/18 07:00 Overton % (Auto) 1.2 % (1.0-6.0) 05/08/18 07:00 Eos % (Auto) 0.2 % (1.5-5.0) L 05/08/18 07:00 Baso % (Auto) 0.2 % (0.0-3.0) 05/08/18 07:00 Gran # 6.04 (1.4-6.5) 05/08/18 07:00 Lymph # (Auto) 0.3 (1.2-3.4) L 05/08/18 07:00 Overton # (Auto) 0.1 (0.1-0.6) 05/08/18 07:00 Eos # (Auto) 0.0 (0.0-0.7) 05/08/18 07:00 Baso # (Auto) 0.01 K/mm3 (0.0-2.0) 05/08/18 07:00 Neutrophils % (Manual) 96 % (50.0-70.0) H 05/08/18 07:00 Lymphocytes % (Manual) 3 % (22.0-35.0) L 05/08/18 07:00 Monocytes % (Manual) 1 % (1.0-6.0) 05/08/18 07:00 Platelet Evaluation Normal (NORMAL) 05/08/18 07:00 PT 11.2 SECONDS (9.4-12.5) 05/05/18 13:30 INR 0.98 05/05/18 13:30 APTT 25.3 Seconds (25.1-36.5) 05/05/18 13:30 Sodium 138 mmol/L (132-148) 05/08/18 07:00 Potassium 4.6 mmol/L (3.6-5.0) 05/08/18 07:00 Chloride 99 mmol/L (98-107) 05/08/18 07:00 Carbon Dioxide 37 mmol/L (21-33) H 05/08/18 07:00 Anion Gap 7 (10-20) L 05/08/18 07:00 BUN 28 mg/dL (7-21) H 05/08/18 07:00 Creatinine 0.8 mg/dl (0.7-1.2) 05/08/18 07:00 Est GFR ( Amer) > 60 05/08/18 07:00 Est GFR (Non-Af Amer) > 60 05/08/18 07:00 Random Glucose 125 mg/dL (70-110) H 05/08/18 07:00 Hemoglobin A1c 5.6 % (4.2-6.5) 05/05/18 16:00 Calcium 8.2 mg/dL (8.4-10.5) L 05/08/18 07:00 Phosphorus 3.5 mg/dL (2.5-4.5) 05/06/18 06:30 Magnesium 1.7 mg/dL (1.7-2.2) 05/06/18 06:30 Total Bilirubin 0.3 mg/dL (0.2-1.3) 05/08/18 07:00 AST 33 U/L (14-36) 05/08/18 07:00 ALT 31 U/L (7-56) 05/08/18 07:00 Alkaline Phosphatase 52 U/L (38-126) 05/08/18 07:00 NT-Pro-B Natriuret Pep 8030 pg/mL (0-450) H 05/06/18 06:30 Total Protein 6.1 g/dL (5.8-8.3) 05/08/18 07:00 Albumin 3.1 g/dL (3.0-4.8) 05/08/18 07:00 Globulin 3.0 gm/dL 05/08/18 07:00 Albumin/Globulin Ratio 1.0 (1.1-1.8) L 05/08/18 07:00 Triglycerides 55 mg/dL (35-160) 05/05/18 15:22 Cholesterol 148 mg/dL (130-200) 05/05/18 15:22 LDL Cholesterol Direct 73 mg/dL (0-129) 05/05/18 15:22 HDL Cholesterol 67 mg/dL (29-60) H 05/05/18 15:22 Urine Color Yellow (YELLOW) 05/05/18 15:34 Urine Appearance Clear (CLEAR) 05/05/18 15:34 Urine pH 6.0 (4.7-8.0) 05/05/18 15:34 Ur Specific Monarch 1.020 (1.005-1.035) 05/05/18 15:34 Urine Protein Trace mg/dL (<30 mg/dL) H 05/05/18 15:34 Urine Glucose (UA) Negative mg/dL (NEGATIVE) 05/05/18 15:34 Urine Ketones Negative mg/dL (NEGATIVE) 05/05/18 15:34 Urine Blood Negative (NEGATIVE) 05/05/18 15:34 Urine Nitrate Negative (NEGATIVE) 05/05/18 15:34 Urine Bilirubin Negative (NEGATIVE) 05/05/18 15:34 Urine Urobilinogen 0.2 E.U./dL (<1 E.U./dL) 05/05/18 15:34 Ur Leukocyte Esterase Small Jackelin/uL (NEGATIVE) H 05/05/18 15:34 Urine RBC 0 - 2 /hpf (0-2) 05/05/18 15:34 Urine WBC 5 - 10 /hpf (0-6) 05/05/18 15:34 Ur Epithelial Cells 3 - 4 /hpf (0-5) 05/05/18 15:34 Urine Bacteria Mod (NEG) 05/05/18 15:34 Attending/Attestation - Attestation I have personally seen and examined this patient.: Yes I have fully participated in the care of the patient.: Yes I have reviewed all pertinent clinical information, including history, physical exam and plan: Yes Notes (Text): 05/08/18 82 year old female with past medical history of COPD who presented with bilateral LE edema and right leg erythema. She was admitted for cellulitis and started on iv antibiotics. ID and podiatry are following. WCx is growing Ps eudomonas Aeriginosa and gram negative rods. LE doppler was negative for DVT; arterial doppler showed borderline abnormal right SIDNEY: possible distal right SFA, popliteal and/or trifurcation disease. She is on iv lasix. Echocardiogram showed diastolic CHF and significant pulmonary hypertension. Pulmonary evaluation was appreciated who recommended CT chest and VQ scan. CT chest showed moderate pleural effusion and pericardial effusion, however on echocardiogram on trace to small pericardial effusion was appreciated. Patient will be transferred to TCU for rehab therapy and iv antibiotics. Isotope is not available for VQ scan and may be available some time next week. Continue with iv antibiotics as per ID and wound care as per podiatry. Patient will need outpatient pulmonary follow up with sleep study and PFTs. Dheeraj Sandoval MD Hospitalist.
--- NOTE | 2018-05-08 21:00 | PN ---
DATE: 05/08/2018 PULMONARY PROGRESS NOTE REFERRING PHYSICIAN: Dr. Sandoval. SUBJECTIVE: She is lying in the bed, feels better than yesterday. Decreased rhinitis, cough, and shortness of breath. No chest pain. No nausea, no vomiting. Still has leg swelling, especially right leg with oozing, skin breakdown requiring dressing. Neurological, sleepy, arousable. PHYSICAL EXAMINATION: GENERAL: In no acute distress. VITAL SIGNS: Temperature is 98, heart rate is 82, respiratory rate is 18, blood pressure 146/74, pulse ox 95% on 2 liters nasal cannula. HEENT: Moist mucous membrane. Crowded airway. NECK: Supple. No JVD. LUNGS: Have a prolonged expiratory phase with some wheezing. HEART: S1 and S2. ABDOMEN: Soft, nontender, no organomegaly. EXTREMITIES: Have edema, right more than the left, has skin breakdown and oozing ulcers. NEUROLOGIC: Awake, alert, and follows simple commands. MEDICATIONS: Reviewed and noted. No new changes in medication reported since yesterday. LABORATORY DATA: Shows hemoglobin 13.1, hematocrit 42.5, WBC 6.5, platelet count is 226. Sodium 138, potassium 4.6, chloride 99, bicarbonate 37, BUN 28, creatinine 0.8, glucose is 125, calcium is 8.2. AST 33, ALT 31, alk phos is 52. Albumin 3.1. Microbiology, leg wound has Pseudomonas. CAT scan of the chest done which shows moderate bilateral pleural effusion with right greater than the left pericardial effusion, emphysema, small amount of atelectasis adjacent to the right pleural effusion. IMPRESSION AND PLAN: Chronic obstructive lung disease, recurrent chronic sinusitis, postnasal drip, may have sleep apnea syndrome, severe pulmonary hypertension, right leg cellulitis with stasis dermatitis. Had a CT done which showed bilateral pleural effusion with some atelectasis and chronic lung disease, could not do V/Q scan because there is no tracer available, [place] backorder. So, case discussed with PMD and hospitalist. May go to [facility] for continued care. V/Q scan can be done next week when tracer is available. This is to rule out chronic thromboembolic disease to answer the pulmonary hypertension question. For now, continue steroids, inhaled bronchodilator, antibiotics. Thank you and we will follow with you. Ban Valentine MD
== END 2018-05-08 18:01 | DRG 603 ==
LOC: ED 12:34 → ERH 15:46 → 5RSO 21:48
PROVIDERS: ADMIT Internal Medicine; ATTEND Internal Medicine
DX: L03.115 Cellulitis of right lower limb (principal); N39.0 Urinary tract infection, site not specified; I50.30 Unspecified diastolic (congestive) heart failure; I31.3 Pericardial effusion (noninflammatory); J98.11 Atelectasis; I50.32 Chronic diastolic (congestive) heart failure; J44.9 Chronic obstructive pulmonary disease, unspecified; R21 Rash and other nonspecific skin eruption; R60.0 Localized edema; S80.869A Insect bite (nonvenomous), unspecified lower leg, initial encounter; W57.XXXA Bitten or stung by nonvenomous insect and other nonvenomous arthropods, initial encounter; I11.0 Hypertensive heart disease with heart failure; I27.20 Pulmonary hypertension, unspecified; I87.2 Venous insufficiency (chronic) (peripheral); J31.0 Chronic rhinitis; J32.9 Chronic sinusitis, unspecified; Z77.22 Contact with and (suspected) exposure to environmental tobacco smoke (acute) (chronic); I07.1 Rheumatic tricuspid insufficiency; Z80.8 Family history of malignant neoplasm of other organs or systems; Z80.0 Family history of malignant neoplasm of digestive organs; Z82.49 Family history of ischemic heart disease and other diseases of the circulatory system; Z87.01 Personal history of pneumonia (recurrent); Z87.11 Personal history of peptic ulcer disease; Z87.891 Personal history of nicotine dependence; Z91.041 Radiographic dye allergy status; Z88.0 Allergy status to penicillin; Z91.013 Allergy to seafood

== ENCOUNTER 2018-05-08 17:54 | Inpatient (IN) | payer MEDICAID, OTHER ==
[2018-05-08] MEDS ORDERED: Albuterol-Ipratrop 3 mg / 0.5 (3 ml) UD IH PRN (18:24)
[2018-05-08] MEDS ORDERED: Arformoterol 15 mcg/2 ml Inh Sol IH SCH (20:00)
[2018-05-08] MEDS: Budesonide 0.5 mg/2 ml Inhal Susp UD IH SCH (20:07)
[2018-05-08] MEDS: Arformoterol 15 mcg/2 ml Inh Sol IH SCH (20:07)
[2018-05-08] MEDS: Acetylcysteine 20% Inhal Soln (4ml) INH SCH (20:08)
[2018-05-08] MEDS ORDERED: Influenza Vaccine 60 mcg/0.5 mL SYR (4YR UP) IM ONE (21:12)
[2018-05-08] MEDS ORDERED: Pneumococcal 23-Valent Vaccine IM ONE (21:12)
[2018-05-08] MEDS: Aztreonam 1 Gm in NS 100mL 100 ML IVPB SCH (21:26)
[2018-05-08] MEDS ORDERED: Vancomycin 1gm in NS 250ml 1 GM/250 ML BAG IVPB SCH (22:30)
[2018-05-09] MEDS: Aztreonam 1 Gm in NS 100mL 100 ML IVPB SCH ×3 (05:54→21:18)
[2018-05-09] MEDS: MethylPREDNISolone 40 mg Vial IVP SCH ×2 (05:58→17:12)
[2018-05-09] MEDS: Enoxaparin 30 mg Syringe SC SCH (06:48)
--- NOTE | 2018-05-09 07:13 | CP.PCM.HP ---
<FlakochristinaOusmane andrews - Last Filed: 05/09/18 18:35> History of Present Illness - History of Present Illness History of Present Illness: Michael Carbajal PGY2 - History and Physical for Hospitalist Service CC: Deconditioning, Cellulitis, Shortness of breath HPI: 82 year old female with a past medical history of COPD who presented to [facility] emergency department for evaluation and treatment of leg swelling/rash and difficulty with ambulation. Patient evaluated and admitted for cellulitis/derma titis and rule out CHF. Patient was seen by podiatry for right lower extremity cellulitis with continued wound care and antibiotic recommendations. Patient was evaluated for possible congestive heart failure as etiology of lower extremity swelling. Patient had echocardiogram showing diastolic congestive heart failure and significant pulmonary hypertension. Pulmonolgy was consulted with recommendations of V/Q scan for rule out thromboembolic etiology for pulmonary HTN. CT chest without contrast was preformed showing moderate bilateral pleural effusions, right greater than left with evidence of pericardial effusion measuring 10 mm in thickness. Patient was evaluated by physical therapy for further strength and conditioning secondary to deconditioned state. Patient was transferred to TCU for [facility] physical therapy rehab work and IV antibiotics. Patient was evaluated today without significant complaints. PMH: COPD, Pulmonary Hypertension, Recent Cellulitis/Dermatitis PSH: denies SocialHx: denies ETOH, former tobacco user (quit over 20 years ago), and denies illicit drug use Allergies: penicillin, shellfish, iv dye Medications: See MAR for full list Present on Admission - Present on Admission Any Indicators Present on Admission: No Review of Systems - Review of Systems All systems: reviewed and no additional remarkable complaints except (as per HPI) Past Patient History - Infectious Disease Hx of Infectious Diseases: None - Past Social History Smoking Status: Never Smoked - CARDIAC Hx Cardiac Disorders: Yes Hx Hypertension: Yes - PULMONARY Hx Chronic Obstructive Pulmonary Disease (COPD): Yes - NEUROLOGICAL Hx Neurological Disorder: No - HEENT Hx HEENT Problems: No - RENAL Hx Chronic Kidney Disease: No - ENDOCRINE/METABOLIC Hx Endocrine Disorders: No - HEMATOLOGICAL/ONCOLOGICAL Hx Blood Disorders: No - INTEGUMENTARY Hx Dermatological Problems: No - MUSCULOSKELETAL/RHEUMATOLOGICAL Hx Falls: No - GASTROINTESTINAL Hx Gastrointestinal Disorders: Yes (GASTRIC ULCER,CONSTIPATION) - GENITOURINARY/GYNECOLOGICAL Hx Genitourinary Disorders: No Hx Reproductive Disorders: No - PSYCHIATRIC Hx Psychophysiologic Disorder: No - SURGICAL HISTORY Hx Surgeries: No Meds Allergies/Adverse Reactions: Allergies Allergy/AdvReac Type Severity Reaction Status Date / Time Penicillins Allergy RASH Verified 05/08/18 18:06 shellfish derived Allergy RASH Verified 05/08/18 18:06 iv dye Allergy RASH Uncoded 05/08/18 18:06 Physical Exam - Constitutional Appears: Non-toxic, No Acute Distress - Head Exam Head Exam: ATRAUMATIC, NORMOCEPHALIC - Eye Exam Eye Exam: EOMI, PERRL - ENT Exam ENT Exam: Mucous Membranes Moist - Respiratory Exam Respiratory Exam: Clear to Auscultation Bilateral, NORMAL BREATHING PATTERN - Cardiovascular Exam Cardiovascular Exam: REGULAR RHYTHM, +S1, +S2 - GI/Abdominal Exam GI & Abdominal Exam: Normal Bowel Sounds, Soft. absent: Tenderness - Extremities Exam Additional comments: right lower extremity with erythema and warmth from mid oliver to ankle and foot, bandaging noted around wound with saturation of fluid - Neurological Exam Neurological exam: Alert, CN II-XII Intact, Normal Gait, Oriented x3, Reflexes Normal - Psychiatric Exam Psychiatric exam: Normal Affect, Normal Mood - Skin Skin Exam: Dry, Intact Results - Vital Signs Recent Vital Signs: Last Vital Signs Temp 97.5 F L 05/08/18 20:56 Pulse 81 05/08/18 20:56 Resp 18 05/08/18 20:56 BP 120/73 05/09/18 05:57 Pulse Ox Assessment & Plan - Assessment and Plan (Free Text) Assessment: 82 year old female with past medical history of COPD who presented with bilateral LE edema and right leg erythema. She was admitted for cellulitis and started on iv antibiotics. Patient discharged and admitted to TCU for further IV antibiotics and physical rehabilitation. Plan: RLE Cellulitis in setting of lower extremity swelling - Continue antibiotics - ID consulted and following - Podiatry was consulted and evaluated the patient, continue with wound care, follow up recs - borderline abnormal SIDNEY/PVR: possible right SFA, popliteal, and/or trifurca tion disease - Interventional Radiology (Dr. Shaheed Burden) on board - Continue with wound changes and dressings per podiatry - Lower extremity swelling improved since admission, continue IV lasix, hold if SBP <100mmHg - Lower extremity doppler negative for DVT Chronic diastolic CHF -Echo with R ventricle volume and pressure overload, severely dilated RV; severe tricuspid regurgitation RVSP 145 mmHg, severe pulmonary HTN - Continue with current medical management Severe pulmonary HTN as per echocardiogram - Pulmonology(dr. Valentine) consulted and following - V/Q scan ordered, postponed at this time secondary to isotope unavailbility Hx of COPD - duonebs q4 prn SOB - O2 saturation appropriate Prophylaxis - DVT ppx- lovenox - GI ppx- not indicated - HHD Deconditioning - Continue with physical therapy - Follow PT recs Dispo: Patient to be in TCU for further rehab and IV antibiotics Patient seen, case and plan discussed with attending, Dr. Sandoval - Date & Time Date: 05/09/18 Time: 14:49 <Dheeraj Sandoval - Last Filed: 05/10/18 07:48> Results - Vital Signs Recent Vital Signs: Last Vital Signs Temp 98.1 F 05/09/18 16:00 Pulse 81 05/09/18 16:00 Resp 20 05/09/18 16:00 BP 150/77 05/10/18 06:11 Pulse Ox 95 05/09/18 16:00 Attending/Attestation - Attestation I have personally seen and examined this patient.: Yes I have fully participated in the care of the patient.: Yes I have reviewed all pertinent clinical information: Yes Notes (Text): 05/09/18 82 year old female with past medical history of COPD who presented with bilateral LE edema and right leg erythema. She was admitted for cellulitis and started on iv antibiotics. ID and podiatry are following. WCx is growing Pseudomonas Aeriginosa and Serratia Marcescens. LE doppler was negative for DVT; arterial doppler showed borderline abnormal right SIDNEY: possible distal right SFA, popliteal and/or trifurcation disease. She is on iv lasix. Echocardiogram showed diastolic CHF and significant pulmonary hypertension. Pulmonary is following who requested VQ scan once isotope is available. CT chest showed moderate pleural effusion and pericardial effusion, however on echocardiogram on trace to small pericardial effusion was appreciated. Patient is transferred to TCU for rehab therapy and iv antibiotics. Continue with iv antibiotics as per ID. Continue with wound care as per podiatry. VQ scan once isotope is available. Patient will need outpatient pulmonary follow up with sleep study and PFTs. Dheeraj Sandoval MD Hospitalist.
[2018-05-09] MEDS: Acetylcysteine 20% Inhal Soln (4ml) INH SCH ×2 (07:27→19:37)
[2018-05-09] MEDS: Arformoterol 15 mcg/2 ml Inh Sol IH SCH ×2 (07:27→19:37)
[2018-05-09] MEDS: Budesonide 0.5 mg/2 ml Inhal Susp UD IH SCH ×2 (07:28→19:37)
[2018-05-09] MEDS ORDERED: Clotrimazole/Betamethasone Lotion(30 ml) TOP SCH (10:00)
--- NOTE | 2018-05-09 12:23 | CP.PCM.CON ---
History of Present Illness - History of Present Illness History of Present Illness: 82 year old female with COPD, diastolic CHF came in initially to [facility] complaining of lower extremity swelling, especially with right leg. The right leg also had some weeping and she was diagnosed with cellulitis on the right leg and has been on antibiotics for this and is improving. She is now transferred to [facility] for continued medical therapy and physical rehab. She denies fever or chills, states her right leg is feeling better. She is currently doing physical therapy and feels well. She denies headache or dizziness, no chest pain, no SOB, no rhinorrhea or sore throat, no cough, no abdominal pain, no diarrhea, no dysuria. Infectious Diseases consult is requested to further evaluate and manage. Review of Systems - Review of Systems All systems: reviewed and no additional remarkable complaints except (as per HPI) Past Patient History - Infectious Disease Hx of Infectious Diseases: None - Past Social History Smoking Status: Never Smoked - CARDIAC Hx Cardiac Disorders: Yes Hx Hypertension: Yes - PULMONARY Hx Chronic Obstructive Pulmonary Disease (COPD): Yes - NEUROLOGICAL Hx Neurological Disorder: No - HEENT Hx HEENT Problems: No - RENAL Hx Chronic Kidney Disease: No - ENDOCRINE/METABOLIC Hx Endocrine Disorders: No - HEMATOLOGICAL/ONCOLOGICAL Hx Blood Disorders: No - INTEGUMENTARY Hx Dermatological Problems: No - MUSCULOSKELETAL/RHEUMATOLOGICAL Hx Falls: No - GASTROINTESTINAL Hx Gastrointestinal Disorders: Yes (GASTRIC ULCER,CONSTIPATION) - GENITOURINARY/GYNECOLOGICAL Hx Genitourinary Disorders: No Hx Reproductive Disorders: No - PSYCHIATRIC Hx Psychophysiologic Disorder: No - SURGICAL HISTORY Hx Surgeries: No Meds Allergies/Adverse Reactions: Allergies Allergy/AdvReac Type Severity Reaction Status Date / Time Penicillins Allergy RASH Verified 05/08/18 18:06 shellfish derived Allergy RASH Verified 05/08/18 18:06 iv dye Allergy RASH Uncoded 05/08/18 18:06 - Medications Medications: Current Medications Acetaminophen (Tylenol 325mg Tab) 650 mg PO Q6H PRN; Protocol PRN Reason: Pain, moderate (4-7) Acetylcysteine (Acetylcysteine 20%) 3 ml INH BIDRESP ARAM; Protocol Last Admin: 05/08/18 20:08 Dose: 3 ml Albuterol/Ipratropium (Duoneb 3 Mg/0.5 Mg (3 Ml) Ud) 3 ml IH [id number] PRN; Protocol PRN Reason: Shortness of Breath Arformoterol Tartrate (Brovana) 15 mcg IH [id number] ARAM; Protocol Last Admin: 05/08/18 20:07 Dose: 15 mcg Aspirin (Ecotrin) 81 mg PO 0800 ARAM; Protocol Betamethasone/Clotrimazole (Lotrisone) 0 ml TOP BID ARAM; Protocol Budesonide (Pulmicort Respules) 0.5 mg IH [id number] ARAM; Protocol Last Admin: 05/08/18 20:07 Dose: 0.5 mg Enoxaparin Sodium (Lovenox) 30 mg SC 0600 ARAM; Protocol Furosemide (Lasix) 20 mg IVP 0600 ARAM; Protocol Aztreonam (Azactam 1 Gm) 100 mls @ 100 mls/hr IVPB Q8 ARAM; Protocol Stop: 05/11/18 06:59 Last Admin: 05/08/18 21:26 Dose: 100 mls/hr Methylprednisolone (Solu-Medrol) 40 mg IVP 0600,1800 ARAM; Protocol Montelukast Sodium (Singulair) 10 mg PO HS ARAM; Protocol Last Admin: 05/08/18 21:27 Dose: 10 mg Physical Exam - Constitutional Appears: Chronically Ill - Head Exam Head Exam: NORMAL INSPECTION - Neck Exam Neck exam: Negative for: Meningismus - Respiratory Exam Respiratory Exam: Decreased Breath Sounds - Cardiovascular Exam Cardiovascular Exam: +S1, +S2 - GI/Abdominal Exam GI & Abdominal Exam: Soft. absent: Tenderness - Extremities Exam Additional comments: right leg with dressings in place Results - Vital Signs Recent Vital Signs: Last Vital Signs Temp 97.5 F L 05/08/18 20:56 Pulse 81 05/08/18 20:56 Resp 18 05/08/18 20:56 BP 162/74 H 05/08/18 20:56 Pulse Ox Assessment & Plan - Assessment and Plan (Free Text) Plan: Assessment probable right leg cellulitis with Pseudomonas in this patient with probable chronic venous stasis COPD diastolic CHF Plan continue Vancomycin and Aztreonam day 3 for 7-10 days follow up further Podiatry evaluation will continue to monitor clinically
--- NOTE | 2018-05-09 12:33 | CP.PCM.CON ---
History of Present Illness - History of Present Illness History of Present Illness: Podiatry consult note for Dr. Kelsey 82 yo female with PMH of COPD seen and evaluated at bedside for RLE swelling, ulceration and cellulitis. Patient was followed up in house by podiatry before moving her to [facility]. She states that her leg pain and swelling improved than when she 1st came to the hospital. She states that she doesn't have any other pedal complaint at this time . She denies any overnight N/V/F/C/SOB/CP PMH: COPD PSH: None Allergies: penicillin, shellfish, IV dye Social History: denies ETOH, former tobacco user (quit over 20 years ago), and denies illicit drug use Review of Systems - Review of Systems Review of Systems: As per HPI - Constitutional Constitutional: As Per HPI Past Patient History - Infectious Disease Hx of Infectious Diseases: None - Past Social History Smoking Status: Never Smoked - CARDIAC Hx Cardiac Disorders: Yes Hx Hypertension: Yes - PULMONARY Hx Chronic Obstructive Pulmonary Disease (COPD): Yes - NEUROLOGICAL Hx Neurological Disorder: No - HEENT Hx HEENT Problems: No - RENAL Hx Chronic Kidney Disease: No - ENDOCRINE/METABOLIC Hx Endocrine Disorders: No - HEMATOLOGICAL/ONCOLOGICAL Hx Blood Disorders: No - INTEGUMENTARY Hx Dermatological Problems: No - MUSCULOSKELETAL/RHEUMATOLOGICAL Hx Falls: No - GASTROINTESTINAL Hx Gastrointestinal Disorders: Yes (GASTRIC ULCER,CONSTIPATION) - GENITOURINARY/GYNECOLOGICAL Hx Genitourinary Disorders: No Hx Reproductive Disorders: No - PSYCHIATRIC Hx Psychophysiologic Disorder: No - SURGICAL HISTORY Hx Surgeries: No Meds Allergies/Adverse Reactions: Allergies Allergy/AdvReac Type Severity Reaction Status Date / Time Penicillins Allergy RASH Verified 05/08/18 18:06 shellfish derived Allergy RASH Verified 05/08/18 18:06 iv dye Allergy RASH Uncoded 05/08/18 18:06 - Medications Medications: Current Medications Acetaminophen (Tylenol 325mg Tab) 650 mg PO Q6H PRN; Protocol PRN Reason: Pain, moderate (4-7) Acetylcysteine (Acetylcysteine 20%) 3 ml INH BIDRESP ARAM; Protocol Last Admin: 05/09/18 07:27 Dose: 3 ml Albuterol/Ipratropium (Duoneb 3 Mg/0.5 Mg (3 Ml) Ud) 3 ml IH [id number] PRN; Protocol PRN Reason: Shortness of Breath Arformoterol Tartrate (Brovana) 15 mcg IH [id number] ARAM; Protocol Last Admin: 05/09/18 07:27 Dose: 15 mcg Aspirin (Ecotrin) 81 mg PO 0800 ARAM; Protocol Last Admin: 05/09/18 08:11 Dose: 81 mg Betamethasone/Clotrimazole (Lotrisone) 0 ml TOP BID ARAM; Protocol Last Admin: 05/09/18 10:16 Dose: 1 appl Budesonide (Pulmicort Respules) 0.5 mg IH [id number] ARAM; Protocol Last Admin: 05/09/18 07:28 Dose: 0.5 mg Enoxaparin Sodium (Lovenox) 30 mg SC 0600 ARAM; Protocol Last Admin: 05/09/18 06:48 Dose: 30 mg Furosemide (Lasix) 20 mg IVP 0600 ARAM; Protocol Last Admin: 05/09/18 05:57 Dose: 20 mg Aztreonam (Azactam 1 Gm) 100 mls @ 100 mls/hr IVPB Q8 ARAM; Protocol Stop: 05/15/18 22:01 Last Admin: 05/09/18 05:54 Dose: 100 mls/hr Vancomycin HCl (Vancomycin 1gm) 1 gm in 250 mls @ 167 mls/hr IVPB 0600,1800 ARAM; Protocol Methylprednisolone (Solu-Medrol) 40 mg IVP 0600,1800 ARAM; Protocol Last Admin: 05/09/18 05:58 Dose: 40 mg Montelukast Sodium (Singulair) 10 mg PO HS ARAM; Protocol Last Admin: 05/08/18 21:27 Dose: 10 mg Physical Exam - Constitutional Appears: Well, Non-toxic, No Acute Distress - Head Exam Head Exam: ATRAUMATIC, NORMOCEPHALIC - Extremities Exam Additional comments: B/L LE focused exam: Vasc: DP and PT pulses are faintly palpable 1/4; temp gradient warm to cool from proximal to distal b/l; cap refill <3 seconds to all digits; nonpitting edema present b/l R>L Neuro: Gross and protective sensations are intact b/l Derm: open superficial wound present at the right posterior lower leg proximal to the ankle joint; base is granular; dermatitis appreciated along with cellulitis about the right lower leg. Serous drainage noted, No purulent drainage, No malodor; no tunneling, streaking or tracking noted. Elongated, Dystrophic and discolored toenails present to all digits b/l; MSK: Mild pain on palpation to the right lower leg wound; no other gross pathology noted b/l. - Neurological Exam Neurological exam: Alert, Oriented x3 - Psychiatric Exam Psychiatric exam: Normal Affect, Normal Mood Results - Vital Signs Recent Vital Signs: Last Vital Signs Temp 97.4 F L 05/09/18 10:00 Pulse 80 05/09/18 10:00 Resp 20 05/09/18 10:00 BP 131/73 05/09/18 10:00 Pulse Ox 90 L 05/09/18 10:00 Assessment & Plan - Assessment and Plan (Free Text) Assessment: 82 y/o female patient seen and evaluated for right lower leg wound and cellulitis Plan: Patient seen and evaluated at the bedside. Plan discussed with attending Dr. Kelsey. Charts and labs reviewed - afebrile, absent leukocytosis Right leg wound cx - gram negative addy SIDNEY/PVR - possible right SFA, popliteal, and/or trifurcation disease Venous duplex - no DVT Wound dressed with adaptic, ABD and DSD Lotrisone cream ordered for topical application daily b/l legs Contine abx as per medicine Podiatry will continue to follow up the patient while in house Thank you for the consult - Date & Time Date: 05/09/18 Time: 12:34
[2018-05-09] MEDS: Clotrimazole/Betamethasone Cream(15 gm) TOP SCH (17:11)
[2018-05-09] MEDS: Vancomycin 1gm in NS 250ml 1 GM/250 ML BAG IVPB SCH (17:12)
--- NOTE | 2018-05-10 03:33 | CON ---
DATE: 05/09/2018 PULMONARY CONSULTATION REFERRING PHYSICIAN: Dr. Sandoval. REASON FOR CONSULTATION: Chronic lung disease, sinusitis, pulmonary hypertension. HISTORY OF PRESENT ILLNESS This is an 82-year-old female, known history of chronic lung disease, chronic sinusitis, history of right lower extremity swelling with stasis dermatitis and cellulitis, admitted to the hospital, being treated for sepsis, had echocardiogram done which shows severe pulmonary hypertension with cardiac diastolic dysfunction, supposed to get V/Q scan to rule out thromboembolic disease , apparently tracer is not available, presently admitted to [facility] for continued care. She is lying in the recliner sleepy, arousable, feels much better. Decreased cough, decreased shortness of breath. No chest pain. No nausea, no vomiting. Still has right leg swelling and edema. PAST MEDICAL HISTORY: As per history of present illness. ALLERGIES: ALLERGIC TO PENICILLIN, SHELLFISH, AND IV CONTRAST MATERIAL. SOCIAL HISTORY: Stopped smoking many years ago. Denies any alcohol use. FAMILY HISTORY: No significant cardiopulmonary disease reported. MEDICATIONS She is on Mucomyst inhaled twice a day, Azactam 1 g every 8 hours, Brovana inhaled twice a day, DuoNeb every 4 hours p.r.n., Ecotrin 81 mg daily, Lasix 20 mg daily, Lotrisone cream to affected area, Pulmicort inhaled twice a day, Singulair 10 mg at bedtime, Solu-Medrol 40 mg twice a day, Tylenol p.r.n., and vancomycin 1 g every 12 hours. REVIEW OF SYSTEMS: No headache. Has decreased rhinitis. Cough is better. No nausea, no vomiting, no diarrhea. Does have a right leg swelling with skin breakdown with oozing ulcers. Neurologically, awake and alert, follows simple commands. LABORATORY DATA: Shows no new lab is available since yesterday. IMPRESSION AND PLAN: Severe pulmonary hypertension, probably secondary to cardiac diastolic dysfunction, recurrent sinusitis, chronic obstructive lung disease, right leg cellulitis with stasis dermatitis, pleural effusion with some atelectasis. Pulmonary point of view, doing okay. We will decrease Solu-Medrol. Continue inhaled bronchodilator. Continue antibiotics. Elevate lower extremity. Once tracer is available, we will do V/Q scan to rule out thromboembolic disease. We will also order sedimentation rate, C-reactive protein, DEXTER, and rheumatoid factor. Thank you, and we will follow with you. Ban Valentine MD
[2018-05-10] MEDS: Enoxaparin 30 mg Syringe SC SCH (05:40)
[2018-05-10] MEDS: MethylPREDNISolone 40 mg Vial IVP SCH ×2 (05:40→17:54)
[2018-05-10] MEDS: Aztreonam 1 Gm in NS 100mL 100 ML IVPB SCH ×3 (05:41→21:40)
[2018-05-10] MEDS: Acetylcysteine 20% Inhal Soln (4ml) INH SCH ×2 (07:28→21:51)
[2018-05-10] MEDS: Arformoterol 15 mcg/2 ml Inh Sol IH SCH ×2 (07:29→21:51)
[2018-05-10] MEDS: Budesonide 0.5 mg/2 ml Inhal Susp UD IH SCH ×2 (07:29→21:51)
[2018-05-10] MEDS: Clotrimazole/Betamethasone Cream(15 gm) TOP SCH ×2 (10:42→17:53)
--- NOTE | 2018-05-10 11:17 | CP.PCM.PN ---
Subjective - Date & Time of Evaluation Date of Evaluation: 05/10/18 Time of Evaluation: 10:45 - Subjective Subjective: Patient is resting comfortably in bed, no fevers, much improved pain and swelling of the right leg. Objective - Vital Signs/Intake and Output Vital Signs (last 24 hours): Temp Pulse Resp BP Pulse Ox 97.4 F L 80 20 131/73 90 L 05/09/18 10:00 05/09/18 10:00 05/09/18 10:00 05/09/18 10:00 05/09/18 10:00 - Medications Medications: Current Medications Acetaminophen (Tylenol 325mg Tab) 650 mg PO Q6H PRN; Protocol PRN Reason: Pain, moderate (4-7) Acetylcysteine (Acetylcysteine 20%) 3 ml INH BIDRESP ARAM; Protocol Last Admin: 05/09/18 07:27 Dose: 3 ml Albuterol/Ipratropium (Duoneb 3 Mg/0.5 Mg (3 Ml) Ud) 3 ml IH [id number] PRN; Protocol PRN Reason: Shortness of Breath Arformoterol Tartrate (Brovana) 15 mcg IH [id number] ARAM; Protocol Last Admin: 05/09/18 07:27 Dose: 15 mcg Aspirin (Ecotrin) 81 mg PO 0800 ARAM; Protocol Last Admin: 05/09/18 08:11 Dose: 81 mg Betamethasone/Clotrimazole (Lotrisone) 0 ml TOP BID ARAM; Protocol Last Admin: 05/09/18 10:16 Dose: 1 appl Budesonide (Pulmicort Respules) 0.5 mg IH [id number] ARAM; Protocol Last Admin: 05/09/18 07:28 Dose: 0.5 mg Enoxaparin Sodium (Lovenox) 30 mg SC 0600 ARAM; Protocol Last Admin: 05/09/18 06:48 Dose: 30 mg Furosemide (Lasix) 20 mg IVP 0600 ARAM; Protocol Last Admin: 05/09/18 05:57 Dose: 20 mg Aztreonam (Azactam 1 Gm) 100 mls @ 100 mls/hr IVPB Q8 ARAM; Protocol Stop: 05/15/18 22:01 Last Admin: 05/09/18 05:54 Dose: 100 mls/hr Vancomycin HCl (Vancomycin 1gm) 1 gm in 250 mls @ 167 mls/hr IVPB 0600,1800 ARAM; Protocol Methylprednisolone (Solu-Medrol) 40 mg IVP 0600,1800 ARAM; Protocol Last Admin: 05/09/18 05:58 Dose: 40 mg Montelukast Sodium (Singulair) 10 mg PO HS ARAM; Protocol Last Admin: 05/08/18 21:27 Dose: 10 mg - Constitutional Appears: Chronically Ill - Head Exam Head Exam: NORMAL INSPECTION - Neck Exam Neck Exam: absent: Meningismus - Respiratory Exam Respiratory Exam: Decreased Breath Sounds - Cardiovascular Exam Cardiovascular Exam: +S1, +S2 - GI/Abdominal Exam GI & Abdominal Exam: Soft. absent: Tenderness Assessment and Plan - Assessment and Plan (Free Text) Plan: Assessment probable right leg cellulitis with Pseudomonas in this patient with probable chronic venous stasis COPD diastolic CHF Plan continue Vancomycin and Aztreonam day 4 for 7-10 days reviewed Podiatry evaluation will continue to monitor clinically
--- NOTE | 2018-05-10 12:27 | CP.PCM.PN ---
Subjective - Date & Time of Evaluation Date of Evaluation: 05/10/18 Time of Evaluation: 12:22 - Subjective Subjective: Podiatry progress note for Dr. Kelsey 82 yo female patient seen and evaluated at bedside for RLE swelling, ulceration and cellulitis. Patient states that she didn't have any overnight leg pain. She states that she doesn't have any other pedal complaint at this time . She denies any overnight N/V/F/C/SOB/CP. Objective - Vital Signs/Intake and Output Vital Signs (last 24 hours): Temp Pulse Resp BP Pulse Ox 97.1 F L 86 90 H 119/56 L 99 05/10/18 10:00 05/10/18 10:00 05/10/18 10:00 05/10/18 10:00 05/10/18 10:00 - Medications Medications: Current Medications Acetaminophen (Tylenol 325mg Tab) 650 mg PO Q6H PRN; Protocol PRN Reason: Pain, moderate (4-7) Acetylcysteine (Acetylcysteine 20%) 3 ml INH BIDRESP ARAM; Protocol Last Admin: 05/10/18 07:28 Dose: 3 ml Albuterol/Ipratropium (Duoneb 3 Mg/0.5 Mg (3 Ml) Ud) 3 ml IH [id number] PRN; Protocol PRN Reason: Shortness of Breath Arformoterol Tartrate (Brovana) 15 mcg IH [id number] ARAM; Protocol Last Admin: 05/10/18 07:29 Dose: 15 mcg Aspirin (Ecotrin) 81 mg PO 0800 ARAM; Protocol Last Admin: 05/10/18 08:44 Dose: 81 mg Betamethasone/Clotrimazole (Lotrisone) 1 gm TOP BID ARAM Last Admin: 05/10/18 10:42 Dose: 1 appl Budesonide (Pulmicort Respules) 0.5 mg IH [id number] ARAM; Protocol Last Admin: 05/10/18 07:29 Dose: 0.5 mg Enoxaparin Sodium (Lovenox) 30 mg SC 0600 ARAM; Protocol Last Admin: 05/10/18 05:40 Dose: 30 mg Furosemide (Lasix) 20 mg IVP 0600 ARAM; Protocol Last Admin: 05/10/18 06:11 Dose: 20 mg Aztreonam (Azactam 1 Gm) 100 mls @ 100 mls/hr IVPB Q8 ARAM; Protocol Stop: 05/15/18 22:01 Last Admin: 05/10/18 05:41 Dose: 100 mls/hr Vancomycin HCl (Vancomycin 1gm) 1 gm in 250 mls @ 167 mls/hr IVPB 0600,1800 ARAM; Protocol Last Admin: 05/09/18 17:12 Dose: 167 mls/hr Methylprednisolone (Solu-Medrol) 20 mg IVP 0600,1800 ARAM; Protocol Last Admin: 05/10/18 05:40 Dose: 20 mg Montelukast Sodium (Singulair) 10 mg PO HS ARAM; Protocol Last Admin: 05/09/18 21:18 Dose: 10 mg - Constitutional Appears: Well, Non-toxic, No Acute Distress - Head Exam Head Exam: ATRAUMATIC, NORMOCEPHALIC - Extremities Exam Additional comments: B/L LE focused exam: Vasc: DP and PT pulses are faintly palpable 1/4; temp gradient warm to cool from proximal to distal b/l; cap refill <3 seconds to all digits; nonpitting edema present b/l R>L Neuro: Gross and protective sensations are intact b/l Derm: Open superficial wound present at the right posterior lower leg proximal to the ankle joint; base is granular; dermatitis appreciated along with cellulitis about the right lower leg. Serous drainage noted, No purulent drainage, No malodor; no tunneling, streaking or tracking noted. Elongated, Dystrophic and discolored toenails present to all digits b/l. MSK: Mild pain on palpation to the right lower leg wound; no other gross pathology noted b/l. Muscle power intact 5/5 to all groups b/l. - Neurological Exam Neurological Exam: Alert, Awake, Oriented x3 - Psychiatric Exam Psychiatric exam: Normal Affect, Normal Mood Assessment and Plan - Assessment and Plan (Free Text) Assessment: 82 y/o female patient seen and evaluated for right lower leg wound and cellulitis Plan: Patient seen and evaluated at the bedside. Plan discussed with attending Dr. Kelsey. Charts and labs reviewed - afebrile, absent leukocytosis Right leg wound cx - Psaudomonas aeruginosa and serratia marcescens SIDNEY/PVR - possible right SFA, popliteal, and/or trifurcation disease Venous duplex - no DVT Wound dressed with adaptic, ABD and DSD Lotrisone cream applied to the legs b/l. Contine abx as per medicine Podiatry will continue to follow up the patient while in house.
[2018-05-10] MEDS: Vancomycin 1gm in NS 250ml 1 GM/250 ML BAG IVPB SCH ×2 (16:56→17:54)
--- NOTE | 2018-05-10 21:54 | PN ---
DATE: 05/10/2018 PULMONARY PROGRESS NOTE REFERRING PHYSICIAN: Dr. Sandoval SUBJECTIVE: She is lying in the bed at 45 degrees, sleepy, arousable. Feels much better. Decreased postnasal drip. Decreased cough. No short of breath. No nausea, no vomiting, no diarrhea. Still has right leg swelling. OBJECTIVE: GENERAL: In no acute distress. VITAL SIGNS: Temperature is 98, heart rate is 78, respiratory rate 18, blood pressure 117/61, pulse ox 95% on 2 liters nasal cannula. HEENT: Moist mucous membranes. . NECK: Supple. No JVD. LUNGS: Fair airflow. Prolonged expiratory phase with some rhonchi. HEART: S1 and S2. ABDOMEN: Soft, nontender. No organomegaly. EXTREMITIES: Does have right leg edema and skin breakdown with oozy secretion. NEUROLOGICAL: Sleepy, arousable. Follows simple command. MEDICATIONS: She is on Mucomyst inhaled twice a day, Azactam 1 g IV every 8 hours, Brovana inhaled twice a day, DuoNeb every 4 hours p.r.n., Ecotrin 81 mg daily, Lasix 20 mg daily, Lotrisone 1 g twice a day at affected area, Lovenox 30 mg subcu daily, Pulmicort inhaled twice a day, Singulair 10 mg daily, Solu-Medrol 20 mg every 12 hours, Tylenol p.r.n., vancomycin 1 g IV every 12 hours. LABORATORY DATA: Show sed rate is 18. C-reactive protein 8.8. IMPRESSION AND PLAN: Severe pulmonary hypertension, probably secondary to cardiac diastolic dysfunction; recurrent sinusitis; chronic obstructive lung disease; right leg cellulitis with stasis dermatitis; pleural effusion with atelectasis. Pulmonary point of view, doing much better. Continue intravenous and inhaled bronchodilator. Continue antibiotics. Continue diuretics. Infectious diseases followup. Awaiting for V/Q scan to rule out thromboembolic disease. Thank you and we will follow with you. Ban Valentine MD
[2018-05-11] MEDS: Aztreonam 1 Gm in NS 100mL 100 ML IVPB SCH ×3 (05:47→21:31)
[2018-05-11] MEDS: MethylPREDNISolone 40 mg Vial IVP SCH ×2 (05:48→17:27)
[2018-05-11] MEDS: Enoxaparin 30 mg Syringe SC SCH (05:48)
[2018-05-11] MEDS: Vancomycin 1gm in NS 250ml 1 GM/250 ML BAG IVPB SCH ×2 (07:01→17:29)
[2018-05-11] MEDS: Arformoterol 15 mcg/2 ml Inh Sol IH SCH ×2 (07:21→20:27)
[2018-05-11] MEDS: Acetylcysteine 20% Inhal Soln (4ml) INH SCH ×2 (07:21→20:27)
[2018-05-11] MEDS: Budesonide 0.5 mg/2 ml Inhal Susp UD IH SCH ×2 (07:21→20:28)
--- NOTE | 2018-05-11 07:40 | CP.PCM.PN ---
<Alex Cho - Last Filed: 05/11/18 15:59> Subjective - Date & Time of Evaluation Date of Evaluation: 05/11/18 Time of Evaluation: 07:40 - Subjective Subjective: PGY-1 Medicine Progress Note for Dr. Sandoval Patient seen and examined at bedside, lying comfortably and in no acute distress. No acute overnight events reported. Denies fevers/chills, headaches, dizziness, chest pain, palpitations, sob, cough, abdominal pain, n/v/d/c. Objective - Vital Signs/Intake and Output Vital Signs (last 24 hours): Temp Pulse Resp BP Pulse Ox 98.1 F 78 18 131/68 95 05/10/18 16:00 05/10/18 16:00 05/10/18 16:00 05/11/18 05:48 05/10/18 16:00 - Medications Medications: Current Medications Acetaminophen (Tylenol 325mg Tab) 650 mg PO Q6H PRN; Protocol PRN Reason: Pain, moderate (4-7) Acetylcysteine (Acetylcysteine 20%) 3 ml INH BIDRESP ARAM; Protocol Last Admin: 05/11/18 07:21 Dose: 3 ml Albuterol/Ipratropium (Duoneb 3 Mg/0.5 Mg (3 Ml) Ud) 3 ml IH [id number] PRN; Protocol PRN Reason: Shortness of Breath Arformoterol Tartrate (Brovana) 15 mcg IH [id number] ARAM; Protocol Last Admin: 05/11/18 07:21 Dose: 15 mcg Aspirin (Ecotrin) 81 mg PO 0800 ARAM; Protocol Last Admin: 05/10/18 08:44 Dose: 81 mg Betamethasone/Clotrimazole (Lotrisone) 1 gm TOP BID ARAM Last Admin: 05/10/18 17:53 Dose: 1 appl Budesonide (Pulmicort Respules) 0.5 mg IH [id number] ARAM; Protocol Last Admin: 05/11/18 07:21 Dose: 0.5 mg Enoxaparin Sodium (Lovenox) 30 mg SC 0600 ARAM; Protocol Last Admin: 05/11/18 05:48 Dose: 30 mg Furosemide (Lasix) 20 mg IVP 0600 ARAM; Protocol Last Admin: 05/11/18 05:48 Dose: 20 mg Aztreonam (Azactam 1 Gm) 100 mls @ 100 mls/hr IVPB Q8 ARAM; Protocol Stop: 05/15/18 22:01 Last Admin: 05/11/18 05:47 Dose: 100 mls/hr Vancomycin HCl (Vancomycin 1gm) 1 gm in 250 mls @ 167 mls/hr IVPB 0600,1800 ARAM; Protocol Last Admin: 05/11/18 07:01 Dose: 167 mls/hr Methylprednisolone (Solu-Medrol) 20 mg IVP 0600,1800 ARAM; Protocol Last Admin: 05/11/18 05:48 Dose: 20 mg Montelukast Sodium (Singulair) 10 mg PO HS ARAM; Protocol Last Admin: 05/10/18 21:40 Dose: 10 mg - Constitutional Appears: Non-toxic, No Acute Distress - Head Exam Head Exam: ATRAUMATIC, NORMAL INSPECTION, NORMOCEPHALIC - Eye Exam Eye Exam: EOMI, Normal appearance Pupil Exam: NORMAL ACCOMODATION - ENT Exam ENT Exam: Mucous Membranes Moist, Normal Exam - Neck Exam Neck Exam: Full ROM, Normal Inspection - Respiratory Exam Respiratory Exam: Clear to Ausculation Bilateral, NORMAL BREATHING PATTERN. absent: Accessory Muscle Use, Rales, Rhonchi, Wheezes, Respiratory Distress, Stridor - Cardiovascular Exam Cardiovascular Exam: REGULAR RHYTHM, +S1, +S2 - GI/Abdominal Exam GI & Abdominal Exam: Soft, Normal Bowel Sounds. absent: Distended, Firm, Guarding, Rigid, Tenderness, Organomegaly, Rebound - Extremities Exam Extremities Exam: Normal Capillary Refill, Normal Inspection Additional comments: Mild pain on palpation to the right lower leg wound; no other gross pathology noted b/l. Muscle power intact 5/5 to all groups b/l. - Neurological Exam Neurological Exam: Alert, Awake, Oriented x3 - Psychiatric Exam Psychiatric exam: Normal Affect, Normal Mood - Skin Additional comments: Open superficial wound present at the right posterior lower leg proximal to the ankle joint; base is granular; dermatitis appreciated along with cellulitis about the right lower leg. Serous drainage noted, No purulent drainage, No malodor; no tunneling, streaking or tracking noted. Elongated, Dystrophic and discolored toenails present to all digits b/l. Assessment and Plan - Assessment and Plan (Free Text) Assessment: 82 year old female with past medical history of COPD who presented with bilateral LE edema and right leg erythema. She was admitted for cellulitis and started on iv antibiotics. Patient discharged and admitted to TCU for further IV antibiotics and physical rehabilitation. Plan: RLE Cellulitis in setting of lower extremity swelling - Podiatry was consulted and evaluated the patient, continue with wound care, follow up recs - Interventional Radiology (Dr. Shaheed Burden) on board - borderline abnormal SIDNEY/PVR: possible right SFA, popliteal, and/or trifurcation disease - Lower extremity swelling improved since admission, continue IV lasix, hold if SBP <100mmHg - Lower extremity doppler negative for DVT - ID consulted and following - C/w vanco and aztreonam Chronic diastolic CHF -Echo with R ventricle volume and pressure overload, severely dilated RV; severe tricuspid regurgitation RVSP 145 mmHg, severe pulmonary HTN - Continue with current medical management Severe pulmonary HTN as per echocardiogram - Pulmonology(dr. Valentine) consulted and following - V/Q scan ordered, postponed at this time secondary to isotope unavailability Hx of COPD - duonebs q4 prn for SOB PPX, Diet, Disposition - DVT ppx: lovenox - GI ppx: not indicated - Diet: HHD Case discussed with Dr. Jaime Cho DO, PGY-1 <Dheeraj Sandoval - Last Filed: 05/11/18 17:02> Objective - Vital Signs/Intake and Output Vital Signs (last 24 hours): Temp Pulse Resp BP Pulse Ox 98.3 F 89 20 145/87 92 L 05/11/18 16:00 05/11/18 16:00 05/11/18 16:00 05/11/18 16:00 05/11/18 16:00 - Medications Medications: Current Medications Acetaminophen (Tylenol 325mg Tab) 650 mg PO Q6H PRN; Protocol PRN Reason: Pain, moderate (4-7) Acetylcysteine (Acetylcysteine 20%) 3 ml INH BIDRESP ARAM; Protocol Last Admin: 05/11/18 07:21 Dose: 3 ml Albuterol/Ipratropium (Duoneb 3 Mg/0.5 Mg (3 Ml) Ud) 3 ml IH [id number] PRN; Protocol PRN Reason: Shortness of Breath Arformoterol Tartrate (Brovana) 15 mcg IH [id number] ARAM; Protocol Last Admin: 05/11/18 07:21 Dose: 15 mcg Aspirin (Ecotrin) 81 mg PO 0800 ARAM; Protocol Last Admin: 05/11/18 08:48 Dose: 81 mg Betamethasone/Clotrimazole (Lotrisone) 1 gm TOP BID ARAM Last Admin: 05/11/18 10:07 Dose: 1 appl Budesonide (Pulmicort Respules) 0.5 mg IH [id number] ARAM; Protocol Last Admin: 05/11/18 07:21 Dose: 0.5 mg Enoxaparin Sodium (Lovenox) 30 mg SC 0600 ARAM; Protocol Last Admin: 05/11/18 05:48 Dose: 30 mg Furosemide (Lasix) 20 mg IVP 0600 ARAM; Protocol Last Admin: 05/11/18 05:48 Dose: 20 mg Aztreonam (Azactam 1 Gm) 100 mls @ 100 mls/hr IVPB Q8 ARAM; Protocol Stop: 05/15/18 22:01 Last Admin: 05/11/18 14:36 Dose: 100 mls/hr Vancomycin HCl (Vancomycin 1gm) 1 gm in 250 mls @ 167 mls/hr IVPB 0600,1800 ARAM; Protocol Last Admin: 05/11/18 07:01 Dose: 167 mls/hr Methylprednisolone (Solu-Medrol) 20 mg IVP 0600,1800 ARAM; Protocol Last Admin: 05/11/18 05:48 Dose: 20 mg Montelukast Sodium (Singulair) 10 mg PO HS ARAM; Protocol Last Admin: 05/10/18 21:40 Dose: 10 mg Attending/Attestation - Attestation I have personally seen and examined this patient.: Yes I have fully participated in the care of the patient.: Yes I have reviewed all pertinent clinical information, including history, physical exam and plan: Yes Notes (Text): 05/11/18 16:59 82 year old female with past medical history of COPD who presented with bilateral LE edema and right leg erythema. She was admitted for cellulitis and started on iv antibiotics. ID and podiatry are following. WCx is growing Pseudomonas Aeriginosa and Serratia Marcescens. LE doppler was negative for DVT; arterial doppler showed borderline abnormal right SIDNEY: possible distal right SFA, popliteal and/or trifurcation disease. She is on iv lasix. Echocardiogram showed diastolic CHF and significant pulmonary hypertension. Pulmonary is following who requested VQ scan once isotope is available. CT chest showed moderate pleural effusion and pericardial effusion, however on echocardiogram on trace to small pericardial effusion was appreciated. Continue with iv antibiotics as per ID and wound care as per podiatry. Continue with physical therapy as tolerated while in TCU. Plan for VQ scan once isotope is available. Recommended outpatient pulmonary follow up with sleep study and PFTs. Dheeraj Sandoval MD Hospitalist.
[2018-05-11] MEDS: Clotrimazole/Betamethasone Cream(15 gm) TOP SCH ×2 (10:07→17:27)
--- NOTE | 2018-05-11 12:24 | CP.PCM.PN ---
Subjective - Date & Time of Evaluation Date of Evaluation: 05/11/18 Time of Evaluation: 12:22 - Subjective Subjective: Podiatry progress note for Dr. Kelsey 82 yo female patient seen and evaluated at bedside with Dr. Kelsey. Patient states that she didn't have any overnight leg pain. She states that she doesn't have any other pedal complaint at this time. She denies any N/V/F/C/SOB/CP. Objective - Vital Signs/Intake and Output Vital Signs (last 24 hours): Temp Pulse Resp BP Pulse Ox 98.1 F 78 18 131/68 95 05/10/18 16:00 05/10/18 16:00 05/10/18 16:00 05/11/18 05:48 05/10/18 16:00 - Medications Medications: Current Medications Acetaminophen (Tylenol 325mg Tab) 650 mg PO Q6H PRN; Protocol PRN Reason: Pain, moderate (4-7) Acetylcysteine (Acetylcysteine 20%) 3 ml INH BIDRESP ARAM; Protocol Last Admin: 05/11/18 07:21 Dose: 3 ml Albuterol/Ipratropium (Duoneb 3 Mg/0.5 Mg (3 Ml) Ud) 3 ml IH [id number] PRN; Prot ocol PRN Reason: Shortness of Breath Arformoterol Tartrate (Brovana) 15 mcg IH [id number] ARAM; Protocol Last Admin: 05/11/18 07:21 Dose: 15 mcg Aspirin (Ecotrin) 81 mg PO 0800 ARAM; Protocol Last Admin: 05/11/18 08:48 Dose: 81 mg Betamethasone/Clotrimazole (Lotrisone) 1 gm TOP BID ARAM Last Admin: 05/11/18 10:07 Dose: 1 appl Budesonide (Pulmicort Respules) 0.5 mg IH [id number] ARAM; Protocol Last Admin: 05/11/18 07:21 Dose: 0.5 mg Enoxaparin Sodium (Lovenox) 30 mg SC 0600 ARAM; Protocol Last Admin: 05/11/18 05:48 Dose: 30 mg Furosemide (Lasix) 20 mg IVP 0600 ARAM; Protocol Last Admin: 05/11/18 05:48 Dose: 20 mg Aztreonam (Azactam 1 Gm) 100 mls @ 100 mls/hr IVPB Q8 ARAM; Protocol Stop: 05/15/18 22:01 Last Admin: 05/11/18 05:47 Dose: 100 mls/hr Vancomycin HCl (Vancomycin 1gm) 1 gm in 250 mls @ 167 mls/hr IVPB 0600,1800 ARAM; Protocol Last Admin: 05/11/18 07:01 Dose: 167 mls/hr Methylprednisolone (Solu-Medrol) 20 mg IVP 0600,1800 ARAM; Protocol Last Admin: 05/11/18 05:48 Dose: 20 mg Montelukast Sodium (Singulair) 10 mg PO HS ARAM; Protocol Last Admin: 05/10/18 21:40 Dose: 10 mg - Constitutional Appears: Well, Non-toxic, No Acute Distress - Head Exam Head Exam: ATRAUMATIC, NORMOCEPHALIC - Extremities Exam Additional comments: B/L LE focused exam: Vasc: DP and PT pulses are faintly palpable 1/4; temp gradient warm to cool from proximal to distal b/l; cap refill <3 seconds to all digits; nonpitting edema present b/l R>L Neuro: Gross and protective sensations are intact b/l Derm: Open superficial wound present at the right posterior lower leg proximal to the ankle joint; base is granular; dermatitis appreciated along with cellulitis about the right lower leg. Serous drainage noted, No purulent drainage, No malodor; no tunneling, streaking or tracking noted. Elongated, Dystrophic and discolored toenails present to all digits b/l. MSK: Mild pain on palpation to the right lower leg wound; no other gross pathology noted b/l. Muscle power intact 5/5 to all groups b/l. - Neurological Exam Neurological Exam: Alert, Awake, Oriented x3 - Psychiatric Exam Psychiatric exam: Normal Affect, Normal Mood Assessment and Plan - Assessment and Plan (Free Text) Assessment: 82 y/o female patient seen and evaluated for right lower leg wound and cellulitis Plan: Patient seen and evaluated at the bedside with Dr. Kelsey Charts and labs reviewed - afebrile, absent leukocytosis Right leg wound cx - Pseudomonas aeruginosa and serratia marcescens SIDNEY/PVR - possible right SFA, popliteal, and/or trifurcation disease Venous duplex - no DVT Wound dressed with adaptic, ABD and DSD Lotrisone cream applied to the legs b/l. Nails x10 sharply cut with nail nipper without incident Contine abx as per medicine Podiatry will continue to follow up the patient while in house.
--- NOTE | 2018-05-11 14:09 | PN ---
DATE: 05/11/2018 SUBJECTIVE: This is an 82-year-old female seen at bedside for a right lower extremity observation. The patient is seen with her dressing; clear, dry and intact and she states she is feeling better. PHYSICAL EXAMINATION: VITAL SIGNS: Her vital signs are reviewed. Her temperature is 98.1, the pulse is 78, the blood pressure is 131/68, and the oxygen sat is on 95. LABORATORY DATA: Her labs are reviewed. The ESR was 18 and the most recent microbiology has not changed. The patient's lower extremity was evaluated, the lateral ulceration is much improved, it is now very superficial without any signs of infection, fluctuance, pus or abscess. The posterior ulceration is ; however, still has some devitalized tissue in the wound and this has the [id number] amount of drainage on it. The cellulitis is resolved and the foot also has gone on to heal. ASSESSMENT: Healing stasis ulcers and resulting cellulitis to the right lower extremity. PLAN AND TREATMENT: The patient was dressed with Optifoam today and we will see how she does. We may add some Tubigrip tomorrow for edema control and now that she is in transitional care and will be up and out of bed. The patient will be seen in followup. Haritha Kelsey DPM
--- NOTE | 2018-05-11 16:23 | CP.PCM.PN ---
Subjective - Date & Time of Evaluation Date of Evaluation: 05/11/18 Time of Evaluation: 10:00 - Subjective Subjective: Comfortable, no fevers, no no increased pain in the legs. Objective - Vital Signs/Intake and Output Vital Signs (last 24 hours): Temp Pulse Resp BP Pulse Ox 97.1 F L 86 90 H 119/56 L 99 05/10/18 10:00 05/10/18 10:00 05/10/18 10:00 05/10/18 10:00 05/10/18 10:00 - Medications Medications: Current Medications Acetaminophen (Tylenol 325mg Tab) 650 mg PO Q6H PRN; Protocol PRN Reason: Pain, moderate (4-7) Acetylcysteine (Acetylcysteine 20%) 3 ml INH BIDRESP ARAM; Protocol Last Admin: 05/10/18 07:28 Dose: 3 ml Albuterol/Ipratropium (Duoneb 3 Mg/0.5 Mg (3 Ml) Ud) 3 ml IH [id number] PRN; Protocol PRN Reason: Shortness of Breath Arformoterol Tartrate (Brovana) 15 mcg IH [id number] ARAM; Protocol Last Admin: 05/10/18 07:29 Dose: 15 mcg Aspirin (Ecotrin) 81 mg PO 0800 ARAM; Protocol Last Admin: 05/10/18 08:44 Dose: 81 mg Betamethasone/Clotrimazole (Lotrisone) 1 gm TOP BID ARAM Last Admin: 05/10/18 10:42 Dose: 1 appl Budesonide (Pulmicort Respules) 0.5 mg IH [id number] ARAM; Protocol Last Admin: 05/10/18 07:29 Dose: 0.5 mg Enoxaparin Sodium (Lovenox) 30 mg SC 0600 ARAM; Protocol Last Admin: 05/10/18 05:40 Dose: 30 mg Furosemide (Lasix) 20 mg IVP 0600 RAAM; Protocol Last Admin: 05/10/18 06:11 Dose: 20 mg Aztreonam (Azactam 1 Gm) 100 mls @ 100 mls/hr IVPB Q8 ARAM; Protocol Stop: 05/15/18 22:01 Last Admin: 05/10/18 05:41 Dose: 100 mls/hr Vancomycin HCl (Vancomycin 1gm) 1 gm in 250 mls @ 167 mls/hr IVPB 0600,1800 ARAM; Protocol Last Admin: 05/09/18 17:12 Dose: 167 mls/hr Methylprednisolone (Solu-Medrol) 20 mg IVP 0600,1800 ARAM; Protocol Last Admin: 05/10/18 05:40 Dose: 20 mg Montelukast Sodium (Singulair) 10 mg PO HS ARAM; Protocol Last Admin: 05/09/18 21:18 Dose: 10 mg - Constitutional Appears: Chronically Ill - Head Exam Head Exam: NORMAL INSPECTION - Neck Exam Neck Exam: absent: Meningismus - Respiratory Exam Respiratory Exam: Decreased Breath Sounds - Cardiovascular Exam Cardiovascular Exam: +S1, +S2 - GI/Abdominal Exam GI & Abdominal Exam: Soft. absent: Tenderness Assessment and Plan - Assessment and Plan (Free Text) Plan: Assessment probable right leg cellulitis with Pseudomonas in this patient with probable chronic venous stasis COPD diastolic CHF Plan continue Vancomycin and Aztreonam day 5 for 7-10 days reviewed Podiatry evaluation will continue to monitor clinically
--- NOTE | 2018-05-11 21:11 | PN ---
DATE: 05/11/2018 REFERRING PHYSICIAN: Dr. Sandoval. SUBJECTIVE: The patient is lying in the bed, sleepy, arousable, feels much better. Decreased postnasal drip, decreased cough, decreased shortness of breath. No chest pain. No dysuria. No diarrhea. Decreased right leg swelling and oozing of secretion. OBJECTIVE: GENERAL: No acute distress. VITAL SIGNS: Temperature is 98, heart rate is 89, respiratory rate is 20, blood pressure 145/87, pulse ox 92% on 2 liters nasal cannula. HEENT: Moist mucous membranes. Small oral cavity. LUNGS: Have a few rhonchi. HEART: S1 and S2. ABDOMEN: Soft, nontender, no organomegaly. EXTREMITIES: Right leg swelling is improved. Still has a dressing. NEUROLOGIC: Awake, alert, follows simple commands. MEDICATIONS: She is on Mucomyst inhaled twice a day, Azactam 1 g IV every 8 hours, Brovana inhaled twice a day, DuoNeb every 4 hours p.r.n., Ecotrin 81 mg daily, Lasix 20 mg daily, Lotrisone 1 g topically twice a day, Lovenox 30 mg subcu daily, Pulmicort inhaled twice a day, Singulair 10 mg h.s., Solu-Medrol 20 mg every 12 hours, Tylenol p.r.n. basis, vancomycin 1 g IV every 12 hours. LABORATORY DATA: Sed rate from yesterday is 18. IMPRESSION AND PLAN: Severe pulmonary hypertension, probably secondary to cardiac diastolic dysfunction; recurrent sinusitis; chronic obstructive lung disease; right leg cellulitis; stasis dermatitis; pleural effusion with atelectasis. Pulmonary point of view, she is doing much better. We will discontinue Solu-Medrol and place her on prednisone 20 mg daily. Continue antibiotics, pulmonary toilet, fall precautions. Elevate lower extremities. Awaiting for V/Q scan to rule out thromboembolic disease. Has a severe pulmonary hypertension. Thank you and we will follow with you. Ban Valentine MD
[2018-05-12] MEDS: Aztreonam 1 Gm in NS 100mL 100 ML IVPB SCH ×3 (05:51→21:34)
[2018-05-12] MEDS: Enoxaparin 30 mg Syringe SC SCH (05:52)
[2018-05-12] MEDS: Vancomycin 1gm in NS 250ml 1 GM/250 ML BAG IVPB SCH ×2 (05:53→18:14)
--- NOTE | 2018-05-12 07:01 | CP.PCM.PN ---
<Yeimy Soriano - Last Filed: 05/12/18 10:55> Subjective - Date & Time of Evaluation Date of Evaluation: 05/12/18 Time of Evaluation: 07:00 - Subjective Subjective: Infectious Disease Progress Note for Fercho Murcia PGY3 Patient seen and examined at bedside. Patient resting comfortably in bed. Reports her legs feel much better. She is afebrile. Objective - Vital Signs/Intake and Output Vital Signs (last 24 hours): Temp Pulse Resp BP Pulse Ox 98.3 F 89 20 160/79 H 92 L 05/11/18 16:00 05/11/18 16:00 05/11/18 16:00 05/12/18 05:53 05/11/18 16:00 - Medications Medications: Current Medications Acetaminophen (Tylenol 325mg Tab) 650 mg PO Q6H PRN; Protocol PRN Reason: Pain, moderate (4-7) Acetylcysteine (Acetylcysteine 20%) 3 ml INH BIDRESP ARAM; Protocol Last Admin: 05/11/18 20:27 Dose: 3 ml Albuterol/Ipratropium (Duoneb 3 Mg/0.5 Mg (3 Ml) Ud) 3 ml IH [id number] PRN; Protocol PRN Reason: Shortness of Breath Arformoterol Tartrate (Brovana) 15 mcg IH [id number] ARAM; Protocol Last Admin: 05/11/18 20:27 Dose: 15 mcg Aspirin (Ecotrin) 81 mg PO 0800 ARAM; Protocol Last Admin: 05/11/18 08:48 Dose: 81 mg Betamethasone/Clotrimazole (Lotrisone) 1 gm TOP BID ARAM Last Admin: 05/11/18 17:27 Dose: 1 appl Budesonide (Pulmicort Respules) 0.5 mg IH [id number] ARAM; Protocol Last Admin: 05/11/18 20:28 Dose: 0.5 mg Enoxaparin Sodium (Lovenox) 30 mg SC 0600 ARAM; Protocol Last Admin: 05/12/18 05:52 Dose: 30 mg Furosemide (Lasix) 20 mg IVP 0600 ARAM; Protocol Last Admin: 05/12/18 05:53 Dose: 20 mg Aztreonam (Azactam 1 Gm) 100 mls @ 100 mls/hr IVPB Q8 ARAM; Protocol Stop: 05/15/18 22:01 Last Admin: 05/12/18 05:51 Dose: 100 mls/hr Vancomycin HCl (Vancomycin 1gm) 1 gm in 250 mls @ 167 mls/hr IVPB 0600,1800 ARAM; Protocol Last Admin: 05/12/18 05:53 Dose: 167 mls/hr Montelukast Sodium (Singulair) 10 mg PO HS ARAM; Protocol Last Admin: 05/11/18 21:31 Dose: 10 mg Prednisone (Prednisone Tab) 20 mg PO DAILY ARAM - Constitutional Appears: No Acute Distress - Head Exam Head Exam: ATRAUMATIC, NORMAL INSPECTION, NORMOCEPHALIC - Eye Exam Eye Exam: Normal appearance, PERRL Pupil Exam: NORMAL ACCOMODATION, PERRL - ENT Exam ENT Exam: Mucous Membranes Moist - Neck Exam Neck Exam: Full ROM - Respiratory Exam Respiratory Exam: Clear to Ausculation Bilateral, NORMAL BREATHING PATTERN. absent: Rales, Rhonchi, Wheezes - Cardiovascular Exam Cardiovascular Exam: REGULAR RHYTHM, +S1, +S2, Murmur. absent: Gallop, Rubs - GI/Abdominal Exam GI & Abdominal Exam: Soft, Normal Bowel Sounds. absent: Rigid, Tenderness, Mass, Rebound - Extremities Exam Extremities Exam: Normal Capillary Refill. absent: Calf Tenderness Additional comments: LLE dressing in place- clean and dry. Mild bilateral erythema - Neurological Exam Neurological Exam: Alert, Awake, CN II-XII Intact, Oriented x3 - Psychiatric Exam Psychiatric exam: Normal Affect, Normal Mood - Skin Skin Exam: Dry, Warm Assessment and Plan - Assessment and Plan (Free Text) Assessment: 1. LLE puruelent cellulitis - + for pseudomonas 2. COPD 3. Diastolic CHF Plan: Continue Cefepime and Vancomycin day #6 to complete 7 days. Will d.c antibiotics on . Continue wound care. Continue to monitor clinically. Case seen, discussed and reviewed with Dr. Martha Soriano PGY3 <Freddy Thomas - Last Filed: 05/12/18 19:43> Objective - Vital Signs/Intake and Output Vital Signs (last 24 hours): Temp Pulse Resp BP Pulse Ox 98.4 F 77 20 165/82 H 95 05/12/18 16:00 05/12/18 16:00 05/12/18 16:00 05/12/18 16:00 05/12/18 16:00 - Medications Medications: Current Medications Acetaminophen (Tylenol 325mg Tab) 650 mg PO Q6H PRN; Protocol PRN Reason: Pain, moderate (4-7) Acetylcysteine (Acetylcysteine 20%) 3 ml INH BIDRESP ARAM; Protocol Last Admin: 05/12/18 07:24 Dose: 3 ml Albuterol/Ipratropium (Duoneb 3 Mg/0.5 Mg (3 Ml) Ud) 3 ml IH [id number] PRN; Protocol PRN Reason: Shortness of Breath Arformoterol Tartrate (Brovana) 15 mcg IH [id number] ARAM; Protocol Last Admin: 05/12/18 07:25 Dose: 15 mcg Aspirin (Ecotrin) 81 mg PO 0800 ARAM; Protocol Last Admin: 05/12/18 10:49 Dose: 81 mg Betamethasone/Clotrimazole (Lotrisone) 1 gm TOP BID ARAM Last Admin: 05/12/18 16:59 Dose: 1 appl Budesonide (Pulmicort Respules) 0.5 mg IH [id number] ARAM; Protocol Last Admin: 05/12/18 07:25 Dose: 0.5 mg Enoxaparin Sodium (Lovenox) 30 mg SC 0600 ARAM; Protocol Last Admin: 05/12/18 05:52 Dose: 30 mg Furosemide (Lasix) 20 mg IVP 0600 ARAM; Protocol Last Admin: 05/12/18 05:53 Dose: 20 mg Aztreonam (Azactam 1 Gm) 100 mls @ 100 mls/hr IVPB Q8 ARAM; Protocol Stop: 05/15/18 22:01 Last Admin: 05/12/18 16:53 Dose: 100 mls/hr Vancomycin HCl (Vancomycin 1gm) 1 gm in 250 mls @ 167 mls/hr IVPB 0600,1800 ARAM; Protocol Last Admin: 05/12/18 18:14 Dose: 167 mls/hr Montelukast Sodium (Singulair) 10 mg PO HS ARAM; Protocol Last Admin: 05/11/18 21:31 Dose: 10 mg Prednisone (Prednisone Tab) 20 mg PO DAILY ARAM Last Admin: 05/12/18 10:49 Dose: 20 mg - Labs Labs: 05/12/18 09:15 05/12/18 09:15 Assessment and Plan - Assessment and Plan (Free Text) Plan: Infectious Diseases Attending Physician Attestation Patient seen and examined, discussed with hospital medical assistant. I have reviewed the patient's history of present illness, past medical, family and social histories, personal history, physical exam, lab findings and imaging studies. I agree with the above findings, assessment and plan. In addition, continue Vancomycin and Azactam for right lower extremity cellulitis, clinically improving. May d/c antibiotics by tomorrow.
[2018-05-12] MEDS: Acetylcysteine 20% Inhal Soln (4ml) INH SCH ×2 (07:24→20:35)
[2018-05-12] MEDS: Arformoterol 15 mcg/2 ml Inh Sol IH SCH ×2 (07:25→20:35)
[2018-05-12] MEDS: Budesonide 0.5 mg/2 ml Inhal Susp UD IH SCH ×2 (07:25→20:36)
[2018-05-12 09:34] LABS: EOS % 0.1 % (1.5-5.0); GRAN # 8.74 (1.4-6.5); GRAN % 85.1 % (50.0-68.0); HEMOGLOBIN 12.8 g/dL (12.0-16.0); LYMPH # 0.7 (1.2-3.4); LYMPH % 6.3 % (22.0-35.0); MEAN CELL VOLUME 96.2 fl (80.0-105.0); MEAN CORPUSCULAR HEMOGLOBIN 30.1 pg (25.0-35.0); MEAN CORPUSCULAR HGB CONC 31.3 g/dl (31.0-37.0); MEAN PLATELET VOLUME 9.5 fl (7.0-11.0); MONO # 0.9 (0.1-0.6); MONO % 8.5 % (1.0-6.0); RBC 4.25 10^6/uL (3.5-6.1); RED CELL DISTRIBUTION WIDTH 14.8 % (11.5-14.5); WHITE BLOOD COUNT 10.3 10^3/uL (4.5-11.0)
[2018-05-12 09:44] LABS: ALB/GLOB RATIO 1.1 (1.1-1.8); ALBUMIN 3.1 g/dL (3.0-4.8); ALT/SGPT 43 U/L (7-56); AST/SGOT 42 U/L (14-36); BLOOD UREA NITROGEN 50 mg/dL (7-21); CALCIUM 8.4 mg/dL (8.4-10.5); GFR NON-AFRICAN AMERICAN 60
[2018-05-12] MEDS: Clotrimazole/Betamethasone Cream(15 gm) TOP SCH ×2 (10:49→16:59)
--- NOTE | 2018-05-12 11:28 | CP.PCM.PN ---
<Arnav Cameron - Last Filed: 05/12/18 11:24> Subjective - Date & Time of Evaluation Date of Evaluation: 05/12/18 Time of Evaluation: 11:24 - Subjective Subjective: Podiatry progress note for Dr. Ruiz 82 yo female seen and evaluated at bedside. Resting comfortably. No acute complaints overnight. States that she is doing well working with PT. Denies N/V/F/C/SOB/CP and has no other pedal complaints. Objective - Vital Signs/Intake and Output Vital Signs (last 24 hours): Temp Pulse Resp BP Pulse Ox 98.3 F 89 20 160/79 H 92 L 05/11/18 16:00 05/11/18 16:00 05/11/18 16:00 05/12/18 05:53 05/11/18 16:00 - Medications Medications: Current Medications Acetaminophen (Tylenol 325mg Tab) 650 mg PO Q6H PRN; Protocol PRN Reason: Pain, moderate (4-7) Acetylcysteine (Acetylcysteine 20%) 3 ml INH BIDRESP [facility]; Protocol Last Admin: 05/12/18 07:24 Dose: 3 ml Albuterol/Ipratropium (Duoneb 3 Mg/0.5 Mg (3 Ml) Ud) 3 ml IH [id number] PRN; Protocol PRN Reason: Shortness of Breath Arformoterol Tartrate (Brovana) 15 mcg IH [id number] [facility]AM; Protocol Last Admin: 05/12/18 07:25 Dose: 15 mcg Aspirin (Ecotrin) 81 mg PO 0800 [facility]; Protocol Last Admin: 05/12/18 10:49 Dose: 81 mg Betamethasone/Clotrimazole (Lotrisone) 1 gm TOP BID [facility] Last Admin: 05/12/18 10:49 Dose: 1 appl Budesonide (Pulmicort Respules) 0.5 mg IH [id number] [facility]; Protocol Last Admin: 05/12/18 07:25 Dose: 0.5 mg Enoxaparin Sodium (Lovenox) 30 mg SC 0600 [facility]; Protocol Last Admin: 05/12/18 05:52 Dose: 30 mg Furosemide (Lasix) 20 mg IVP 0600 [facility]; Protocol Last Admin: 05/12/18 05:53 Dose: 20 mg Aztreonam (Azactam 1 Gm) 100 mls @ 100 mls/hr IVPB Q8 [facility]; Protocol Stop: 05/15/18 22:01 Last Admin: 05/12/18 05:51 Dose: 100 mls/hr Vancomycin HCl (Vancomycin 1gm) 1 gm in 250 mls @ 167 mls/hr IVPB 0600,1800 [facility]; Protocol Last Admin: 05/12/18 05:53 Dose: 167 mls/hr Montelukast Sodium (Singulair) 10 mg PO HS [facility]; Protocol Last Admin: 05/11/18 21:31 Dose: 10 mg Prednisone (Prednisone Tab) 20 mg PO DAILY [facility] Last Admin: 05/12/18 10:49 Dose: 20 mg - Labs Labs: 05/12/18 09:15 05/12/18 09:15 - Constitutional Appears: Well, Non-toxic, No Acute Distress - Head Exam Head Exam: ATRAUMATIC, NORMOCEPHALIC - Extremities Exam Additional comments: B/L LE focused exam: Vasc: DP and PT pulses are faintly palpable 1/4; temp gradient warm to cool from proximal to distal b/l; cap refill <3 seconds to all digits; mild nonpitting edema present b/l R>L - improving since admission Neuro: Gross and protective sensations are intact b/l Derm: Open superficial wound present at the right posterior lower leg proximal to the ankle joint; base is granular; dermatitis appreciated along with cellulitis about the right lower leg - improving since admission. Serous drainage noted, No purulent drainage, No malodor; no tunneling, streaking or tracking noted. MSK: Mild pain on palpation to the right lower leg wound; no other gross pathology noted b/l. Muscle power intact 5/5 to all groups b/l. - Neurological Exam Neurological Exam: Alert, Awake, Oriented x3 - Psychiatric Exam Psychiatric exam: Normal Affect, Normal Mood Assessment and Plan - Assessment and Plan (Free Text) Assessment: 82 y/o female patient seen and evaluated for right lower leg wound and cellulitis Plan: Patient seen and evaluated at the bedside with Dr. Kelsey Charts and labs reviewed - afebrile, absent leukocytosis Right leg wound cx - Pseudomonas aeruginosa and serratia marcescens SIDNEY/PVR - possible right SFA, popliteal, and/or trifurcation disease Venous duplex - no DVT Legs cleansed with saline and lotion applied. Dressed with optifoam Contine abx as per medicine Podiatry will continue to follow up the patient while in house. <Ramez Ruiz - Last Filed: 05/13/18 09:41> Objective - Vital Signs/Intake and Output Vital Signs (last 24 hours): Temp Pulse Resp BP Pulse Ox 98.4 F 77 20 163/76 H 95 05/12/18 16:00 05/12/18 16:00 05/12/18 16:00 05/13/18 05:01 05/12/18 16:00 - Medications Medications: Current Medications Acetaminophen (Tylenol 325mg Tab) 650 mg PO Q6H PRN; Protocol PRN Reason: Pain, moderate (4-7) Acetylcysteine (Acetylcysteine 20%) 3 ml INH BIDRESP ARAM; Protocol Last Admin: 05/13/18 07:26 Dose: 3 ml Albuterol/Ipratropium (Duoneb 3 Mg/0.5 Mg (3 Ml) Ud) 3 ml IH [id number] PRN; Protocol PRN Reason: Shortness of Breath Arformoterol Tartrate (Brovana) 15 mcg IH [id number] ARAM; Protocol Last Admin: 05/13/18 07:26 Dose: 15 mcg Aspirin (Ecotrin) 81 mg PO 0800 [facility]; Protocol Last Admin: 05/13/18 08:21 Dose: 81 mg Betamethasone/Clotrimazole (Lotrisone) 1 gm TOP BID [facility] Last Admin: 05/12/18 16:59 Dose: 1 appl Budesonide (Pulmicort Respules) 0.5 mg IH [id number] ARAM; Protocol Last Admin: 05/13/18 07:26 Dose: 0.5 mg Enoxaparin Sodium (Lovenox) 30 mg SC 0600 [facility]; Protocol Last Admin: 05/13/18 05:02 Dose: 30 mg Furosemide (Lasix) 20 mg IVP 0600 [facility]; Protocol Last Admin: 05/13/18 05:01 Dose: 20 mg Aztreonam (Azactam 1 Gm) 100 mls @ 100 mls/hr IVPB Q8 [facility]; Protocol Stop: 05/15/18 22:01 Last Admin: 05/13/18 05:01 Dose: 100 mls/hr Vancomycin HCl (Vancomycin 1gm) 1 gm in 250 mls @ 167 mls/hr IVPB 0600,1800 [facility]; Protocol Last Admin: 05/13/18 05:02 Dose: 167 mls/hr Montelukast Sodium (Singulair) 10 mg PO HS [facility]; Protocol Last Admin: 05/12/18 21:34 Dose: 10 mg Prednisone (Prednisone Tab) 20 mg PO DAILY [facility] Last Admin: 05/12/18 10:49 Dose: 20 mg - Labs Labs: 05/12/18 09:15 05/12/18 09:15 Attending/Attestation - Attestation I have personally seen and examined this patient.: Yes I have fully participated in the care of the patient.: Yes I have reviewed all pertinent clinical information, including history, physical exam and plan: Yes
--- NOTE | 2018-05-13 04:07 | PN ---
DATE: 05/12/2018 PULMONARY PROGRESS NOTE REFERRING PHYSICIAN: Dr. Sandoval. SUBJECTIVE: She is lying in the bed, sleepy, arousable. Night was unremarkable. Doing well in therapy. Decreased rhinitis, postnasal drip and cough. No nausea, no vomiting, no diarrhea. Decreased right leg swelling. OBJECTIVE: GENERAL: In no acute distress. VITAL SIGNS: Temperature is 98, heart rate 77, respiratory rate is 20, blood pressure 165/82, pulse ox 95% on room air. HEENT: Moist mucous membranes. No ulcer or thrush. NECK: Supple. No JVD. LUNGS: Has a fair airflow with rhonchi. HEART: S1, S2. ABDOMEN: Soft, nontender, no organomegaly. EXTREMITIES: Decreased right leg erythema and edema. NEUROLOGIC: Awake, alert, follows simple command. MEDICATIONS: She is on Mucomyst inhaled twice a day, Azactam 1 g IV every 8 hours, Brovana inhaled twice a day, DuoNeb every 4 hours p.r.n., Ecotrin 81 mg daily, Lasix 20 mg daily, Lotrisone at affected area, Lovenox 30 mg daily, prednisone 20 mg daily, Pulmicort inhaled twice a day, Singulair 10 mg daily, Tylenol p.r.n., vancomycin 1 g IV every 12 hours. LABORATORY DATA: Shows hemoglobin 12.8, hematocrit 40.9, WBC 10.3, platelet is 223. Sodium 138, potassium 4.5, chloride 98, bicarbonate 34, BUN 15, creatinine 0.9, glucose 141, calcium 8.4, phosphorus 3, magnesium 1.8, AST 42, ALT 43, alk phos is 50. Albumin is 3.1. IMPRESSION AND PLAN: Severe pulmonary hypertension, probably secondary to cardiac diastolic dysfunction and lung disease with probably thromboembolic disease. Has a history of sinusitis, chronic lung disease, right leg cellulitis, pleural effusion, atelectasis. Pulmonary point of view, doing well. Continue p.o. and inhaled bronchodilator, awaiting for V/Q scan. Continue therapy. Thank you and we will follow with you. Ban Valentine MD [facility] # [id number]
[2018-05-13] MEDS: Aztreonam 1 Gm in NS 100mL 100 ML IVPB SCH ×3 (05:01→21:27)
[2018-05-13] MEDS: Enoxaparin 30 mg Syringe SC SCH (05:02)
[2018-05-13] MEDS: Vancomycin 1gm in NS 250ml 1 GM/250 ML BAG IVPB SCH ×2 (05:02→18:07)
--- NOTE | 2018-05-13 06:59 | CP.PCM.PN ---
<Yeimy Soriano - Last Filed: 05/13/18 10:31> Subjective - Date & Time of Evaluation Date of Evaluation: 05/13/18 Time of Evaluation: 07:00 - Subjective Subjective: Infectious Disease Progress Note for Fercho Murcia PGY3 Patient seen and examined at bedside. Patient is resting in bed and remains afebrile. She feels well today without any complaints. Objective - Vital Signs/Intake and Output Vital Signs (last 24 hours): Temp Pulse Resp BP Pulse Ox 98.4 F 77 20 163/76 H 95 05/12/18 16:00 05/12/18 16:00 05/12/18 16:00 05/13/18 05:01 05/12/18 16:00 - Medications Medications: Current Medications Acetaminophen (Tylenol 325mg Tab) 650 mg PO Q6H PRN; Protocol PRN Reason: Pain, moderate (4-7) Acetylcysteine (Acetylcysteine 20%) 3 ml INH BIDRESP ARAM; Protocol Last Admin: 05/12/18 20:35 Dose: 3 ml Albuterol/Ipratropium (Duoneb 3 Mg/0.5 Mg (3 Ml) Ud) 3 ml IH [id number] PRN; Pr otocol PRN Reason: Shortness of Breath Arformoterol Tartrate (Brovana) 15 mcg IH [id number] ARAM; Protocol Last Admin: 05/12/18 20:35 Dose: 15 mcg Aspirin (Ecotrin) 81 mg PO 0800 ARAM; Protocol Last Admin: 05/12/18 10:49 Dose: 81 mg Betamethasone/Clotrimazole (Lotrisone) 1 gm TOP BID ARAM Last Admin: 05/12/18 16:59 Dose: 1 appl Budesonide (Pulmicort Respules) 0.5 mg IH [id number] ARAM; Protocol Last Admin: 05/12/18 20:36 Dose: 0.5 mg Enoxaparin Sodium (Lovenox) 30 mg SC 0600 ARAM; Protocol Last Admin: 05/13/18 05:02 Dose: 30 mg Furosemide (Lasix) 20 mg IVP 0600 ARAM; Protocol Last Admin: 05/13/18 05:01 Dose: 20 mg Aztreonam (Azactam 1 Gm) 100 mls @ 100 mls/hr IVPB Q8 ARAM; Protocol Stop: 05/15/18 22:01 Last Admin: 05/13/18 05:01 Dose: 100 mls/hr Vancomycin HCl (Vancomycin 1gm) 1 gm in 250 mls @ 167 mls/hr IVPB 0600,1800 ARAM; Protocol Last Admin: 05/13/18 05:02 Dose: 167 mls/hr Montelukast Sodium (Singulair) 10 mg PO HS [facility]; Protocol Last Admin: 05/12/18 21:34 Dose: 10 mg Prednisone (Prednisone Tab) 20 mg PO DAILY [facility] Last Admin: 05/12/18 10:49 Dose: 20 mg - Labs Labs: 05/12/18 09:15 05/12/18 09:15 - Constitutional Appears: No Acute Distress - Head Exam Head Exam: ATRAUMATIC, NORMAL INSPECTION, NORMOCEPHALIC - Eye Exam Eye Exam: Normal appearance, PERRL Pupil Exam: NORMAL ACCOMODATION, PERRL - ENT Exam ENT Exam: Mucous Membranes Moist - Neck Exam Neck Exam: Normal Inspection - Respiratory Exam Respiratory Exam: Clear to Ausculation Bilateral, NORMAL BREATHING PATTERN. absent: Rales, Rhonchi, Wheezes - Cardiovascular Exam Cardiovascular Exam: REGULAR RHYTHM, +S1, +S2, Murmur. absent: Gallop, Rubs - GI/Abdominal Exam GI & Abdominal Exam: Soft, Normal Bowel Sounds. absent: Rigid, Tenderness, Mass, Rebound - Extremities Exam Extremities Exam: absent: Calf Tenderness, Pedal Edema Additional comments: LLE dressing in place- clean and dry. Mild bilateral erythema - Neurological Exam Neurological Exam: Alert, Awake, CN II-XII Intact, Oriented x3 - Psychiatric Exam Psychiatric exam: Normal Affect, Normal Mood - Skin Skin Exam: Dry, Warm Assessment and Plan - Assessment and Plan (Free Text) Assessment: 1. LLE puruelent cellulitis - + for pseudomonas 2. COPD 3. Diastolic CHF Plan: Patient is on Aztreonam and Vancomycin day #7 out of 7 days. Will d/c antibiotics tomorrow. Will continue to monitor patient clinically. Case seen, discussed and reviewed with Dr. Martha Soriano PGY3 <Freddy Thomas - Last Filed: 05/13/18 17:32> Objective - Vital Signs/Intake and Output Vital Signs (last 24 hours): Temp Pulse Resp BP Pulse Ox 97.5 F L 79 18 146/76 96 05/13/18 16:50 05/13/18 16:50 05/13/18 16:50 05/13/18 16:50 05/13/18 16:50 - Medications Medications: Current Medications Acetaminophen (Tylenol 325mg Tab) 650 mg PO Q6H PRN; Protocol PRN Reason: Pain, moderate (4-7) Acetylcysteine (Acetylcysteine 20%) 3 ml INH BIDRESP ARAM; Protocol Last Admin: 05/13/18 07:26 Dose: 3 ml Albuterol/Ipratropium (Duoneb 3 Mg/0.5 Mg (3 Ml) Ud) 3 ml IH [id number] PRN; Protocol PRN Reason: Shortness of Breath Arformoterol Tartrate (Brovana) 15 mcg IH [id number] ARAM; Protocol Last Admin: 05/13/18 07:26 Dose: 15 mcg Aspirin (Ecotrin) 81 mg PO 0800 [facility]; Protocol Last Admin: 05/13/18 08:21 Dose: 81 mg Betamethasone/Clotrimazole (Lotrisone) 1 gm TOP BID ARAM Last Admin: 05/13/18 10:45 Dose: 1 appl Budesonide (Pulmicort Respules) 0.5 mg IH [id number] ARAM; Protocol Last Admin: 05/13/18 07:26 Dose: 0.5 mg Enoxaparin Sodium (Lovenox) 30 mg SC 0600 [facility]; Protocol Last Admin: 05/13/18 05:02 Dose: 30 mg Furosemide (Lasix) 20 mg IVP 0600 [facility]; Protocol Last Admin: 05/13/18 05:01 Dose: 20 mg Aztreonam (Azactam 1 Gm) 100 mls @ 100 mls/hr IVPB Q8 [facility]; Protocol Stop: 05/15/18 22:01 Last Admin: 05/13/18 13:26 Dose: 100 mls/hr Vancomycin HCl (Vancomycin 1gm) 1 gm in 250 mls @ 167 mls/hr IVPB 0600,1800 [facility]; Protocol Last Admin: 05/13/18 05:02 Dose: 167 mls/hr Montelukast Sodium (Singulair) 10 mg PO HS [facility]; Protocol Last Admin: 05/12/18 21:34 Dose: 10 mg Prednisone (Prednisone Tab) 20 mg PO DAILY ARAM Last Admin: 05/13/18 10:46 Dose: 20 mg - Labs Labs: 05/12/18 09:15 05/12/18 09:15 Assessment and Plan - Assessment and Plan (Free Text) Plan: Infectious Diseases Attending Physician Attestation Patient seen and examined, discussed with medical officer. I have reviewed the patient's history of present illness, past medical, family and social histories, personal history, physical exam, lab findings and imaging studies. I agree with the above findings, assessment and plan. In addition, we can d/c antibiotics that we were using to treat right lower extremity cellulitis. Will monitor clinically.
[2018-05-13] MEDS: Acetylcysteine 20% Inhal Soln (4ml) INH SCH ×2 (07:26→20:06)
[2018-05-13] MEDS: Arformoterol 15 mcg/2 ml Inh Sol IH SCH ×2 (07:26→20:07)
[2018-05-13] MEDS: Budesonide 0.5 mg/2 ml Inhal Susp UD IH SCH ×2 (07:26→20:07)
--- NOTE | 2018-05-13 07:40 | CP.PCM.PN ---
<Alex Cho - Last Filed: 05/13/18 16:26> Subjective - Date & Time of Evaluation Date of Evaluation: 05/13/18 Time of Evaluation: 07:40 - Subjective Subjective: PGY-1 Medicine Progress Note for Dr. Betancur Patient seen and examined at bedside this AM, in no acute distress. No acute overnight events reported. RLE erythema/swelling improving, continues to work with PT in TCU. Objective - Vital Signs/Intake and Output Vital Signs (last 24 hours): Temp Pulse Resp BP Pulse Ox 98.4 F 77 20 163/76 H 95 05/12/18 16:00 05/12/18 16:00 05/12/18 16:00 05/13/18 05:01 05/12/18 16:00 - Medications Medications: Current Medications Acetaminophen (Tylenol 325mg Tab) 650 mg PO Q6H PRN; Protocol PRN Reason: Pain, moderate (4-7) Acetylcysteine (Acetylcysteine 20%) 3 ml INH BIDRESP ARAM; Protocol Last Admin: 05/13/18 07:26 Dose: 3 ml Albuterol/Ipratropium (Duoneb 3 Mg/0.5 Mg (3 Ml) Ud) 3 ml IH [id number] PRN; Protocol PRN Reason: Shortness of Breath Arformoterol Tartrate (Brovana) 15 mcg IH [id number] ARAM; Protocol Last Admin: 05/13/18 07:26 Dose: 15 mcg Aspirin (Ecotrin) 81 mg PO 0800 [facility]; Protocol Last Admin: 05/12/18 10:49 Dose: 81 mg Betamethasone/Clotrimazole (Lotrisone) 1 gm TOP BID [facility]AM Last Admin: 05/12/18 16:59 Dose: 1 appl Budesonide (Pulmicort Respules) 0.5 mg IH [id number] ARAM; Protocol Last Admin: 05/13/18 07:26 Dose: 0.5 mg Enoxaparin Sodium (Lovenox) 30 mg SC 0600 [facility]; Protocol Last Admin: 05/13/18 05:02 Dose: 30 mg Furosemide (Lasix) 20 mg IVP 0600 [facility]; Protocol Last Admin: 05/13/18 05:01 Dose: 20 mg Aztreonam (Azactam 1 Gm) 100 mls @ 100 mls/hr IVPB Q8 [facility]; Protocol Stop: 05/15/18 22:01 Last Admin: 05/13/18 05:01 Dose: 100 mls/hr Vancomycin HCl (Vancomycin 1gm) 1 gm in 250 mls @ 167 mls/hr IVPB 0600,1800 [facility]; Protocol Last Admin: 05/13/18 05:02 Dose: 167 mls/hr Montelukast Sodium (Singulair) 10 mg PO HS [facility]; Protocol Last Admin: 05/12/18 21:34 Dose: 10 mg Prednisone (Prednisone Tab) 20 mg PO DAILY [facility] Last Admin: 05/12/18 10:49 Dose: 20 mg - Labs Labs: 05/12/18 09:15 05/12/18 09:15 - Constitutional Appears: Non-toxic, No Acute Distress - Head Exam Head Exam: ATRAUMATIC, NORMAL INSPECTION, NORMOCEPHALIC - Eye Exam Eye Exam: EOMI, Normal appearance Pupil Exam: NORMAL ACCOMODATION - ENT Exam ENT Exam: Mucous Membranes Moist, Normal Exam - Neck Exam Neck Exam: Full ROM, Normal Inspection - Respiratory Exam Respiratory Exam: Clear to Ausculation Bilateral, NORMAL BREATHING PATTERN. absent: Accessory Muscle Use, Rales, Rhonchi, Wheezes, Respiratory Distress, Stridor - Cardiovascular Exam Cardiovascular Exam: REGULAR RHYTHM, +S1, +S2 - GI/Abdominal Exam GI & Abdominal Exam: Soft, Normal Bowel Sounds. absent: Distended, Firm, Guarding, Rigid, Tenderness, Organomegaly, Rebound - Extremities Exam Extremities Exam: Full ROM, Normal Capillary Refill. absent: Calf Tenderness, Joint Swelling Additional comments: RLE dressing in place-c/d/i - Back Exam Back Exam: NORMAL INSPECTION - Neurological Exam Neurological Exam: Alert, Awake, Oriented x3 - Psychiatric Exam Psychiatric exam: Normal Affect, Normal Mood - Skin Skin Exam: Intact Additional comments: Per podiatry: Open superficial wound present at the right posterior lower leg proximal to the ankle joint; base is granular; dermatitis appreciated along with cellulitis about the right lower leg - improving since admission. Serous drainage noted, No purulent drainage, No malodor; no tunneling, streaking or tracking noted. Assessment and Plan - Assessment and Plan (Free Text) Assessment: 82 year old female with past medical history of COPD who presented with bilateral LE edema and right leg erythema. She was admitted for cellulitis and started on iv antibiotics. Patient discharged and admitted to TCU for further IV antibiotics and physical rehabilitation. Plan: RLE Cellulitis in setting of lower extremity swelling - Podiatry was consulted and evaluated the patient, continue with wound care, follow up recs - Interventional Radiology (Dr. Shaheed Burden) on board - borderline abnormal SIDNEY/PVR: possible right SFA, popliteal, and/or trifur cation disease - Lower extremity swelling improved since admission, continue IV lasix, hold if SBP <100mmHg - Lower extremity doppler negative for DVT - ID consulted and following - C/w vanco and aztreonam Chronic diastolic CHF -Echo with R ventricle volume and pressure overload, severely dilated RV; severe tricuspid regurgitation RVSP 145 mmHg, severe pulmonary HTN - Continue with current medical management Severe pulmonary HTN as per echocardiogram - Pulmonology(dr. Valentine) consulted and following - V/Q scan: low probability ventilation perfusion scan for PE Hx of COPD - duonebs q4 prn for SOB PPX, Diet, Disposition - DVT ppx: lovenox - GI ppx: not indicated - Diet: HHD Case discussed with Dr. Gypsy Cho DO, PGY-1 <Ban Betancur - Last Filed: 05/14/18 07:54> Objective - Vital Signs/Intake and Output Vital Signs (last 24 hours): Temp Pulse Resp BP Pulse Ox 97.5 F L 79 18 121/59 L 96 05/13/18 16:50 05/13/18 16:50 05/13/18 16:50 05/14/18 05:18 05/13/18 16:50 - Medications Medications: Current Medications Acetaminophen (Tylenol 325mg Tab) 650 mg PO Q6H PRN; Protocol PRN Reason: Pain, moderate (4-7) Acetylcysteine (Acetylcysteine 20%) 3 ml INH BIDRESP [facility]; Protocol Last Admin: 05/13/18 20:06 Dose: 3 ml Albuterol/Ipratropium (Duoneb 3 Mg/0.5 Mg (3 Ml) Ud) 3 ml IH [id number] PRN; Protocol PRN Reason: Shortness of Breath Arformoterol Tartrate (Brovana) 15 mcg IH [id number] [facility]; Protocol Last Admin: 05/13/18 20:07 Dose: 15 mcg Aspirin (Ecotrin) 81 mg PO 0800 [facility]; Protocol Last Admin: 05/13/18 08:21 Dose: 81 mg Betamethasone/Clotrimazole (Lotrisone) 1 gm TOP BID [facility] Last Admin: 05/13/18 18:06 Dose: 1 appl Budesonide (Pulmicort Respules) 0.5 mg IH [id number] [facility]; Protocol Last Admin: 05/13/18 20:07 Dose: 0.5 mg Enoxaparin Sodium (Lovenox) 30 mg SC 0600 [facility]; Protocol Last Admin: 05/14/18 05:18 Dose: 30 mg Furosemide (Lasix) 20 mg IVP 0600 [facility]; Protocol Last Admin: 05/14/18 05:18 Dose: 20 mg Montelukast Sodium (Singulair) 10 mg PO HS [facility]; Protocol Last Admin: 05/13/18 21:27 Dose: 10 mg Prednisone (Prednisone Tab) 20 mg PO DAILY [facility] Last Admin: 05/13/18 10:46 Dose: 20 mg - Labs Labs: 05/12/18 09:15 05/12/18 09:15 Attending/Attestation - Attestation I have personally seen and examined this patient.: Yes I have fully participated in the care of the patient.: Yes I have reviewed all pertinent clinical information, including history, physical exam and plan: Yes Notes (Text): 05/14/18 07:40 Medical record note made by the resident after discussion with my direction and input after the patient was personally seen and examined by me. I have reviewed the chart and agree that the record accurately reflects by personal performance of the history, physical exam, data review, and medical decision-making, in the course for the patient. I have also personally directed the plan of care. 82 year old female with PMH of COPD was initially admitted to [facility] [place] with bilateral LE edema and right leg cellulitis. She was admitted for cellulitis and started on iv antibiotics. . Wound cultures grew Pseudomonas Aeriginosa and Serratia Marcescens. Patient has completed treatment for Cellulitis.Redness has resolved. Doppler was negative for DVT; arterial doppler showed borderline abnormal right SIDNEY: possible distal right SFA, popliteal and/or trifurcation disease. Echocardiogram showed diastolic CHF and severe pulmonary hypertension. VQ scan is low probability for Pulmoary embolism. CT chest showed moderate pleural effusion and pericardial effusion, however on echocardiogram on trace to small pericardial effusion was noted. Patient is hypoxic on room air.She will need home oxygen prior to discharge.She will need further work up for etiology of Pulmonary HTN as out patient.Pulmonary evaluation is appreciated. Diastolic CHF on IV Lasix.Dyspnea and leg swelling is improving. Management plan was discussed in detail with patient. Education was provided. 05/14/18 07:51
[2018-05-13] MEDS: Clotrimazole/Betamethasone Cream(15 gm) TOP SCH ×2 (10:45→18:06)
--- NOTE | 2018-05-13 16:12 | PN ---
DATE: 05/13/2018 PULMONARY PROGRESS NOTE REFERRING PHYSICIAN: Dr. Sandoval. SUBJECTIVE: The patient is lying in the bed, head at 45 degrees. Night was unremarkable. She has had mild cough. No sputum production. No chest pain. No nausea, no vomiting, no diarrhea. Right leg swelling is improved. OBJECTIVE: GENERAL: In no acute distress. VITAL SIGNS: Temperature is 98, heart rate is 77, respiratory rate is 20, blood pressure 163/76, pulse ox 95% on 2 L nasal cannula. HEENT: Moist mucous membrane. No ulcer or thrush noted. NECK: Supple. No JVD. LUNGS: Have a few scattered rhonchi. HEART: S1 and S2. ABDOMEN: Soft, nontender. No organomegaly. EXTREMITIES: Right leg decreased swelling and erythema. Still has a dressing. NEUROLOGICAL: Awake and alert. Follows simple command. MEDICATIONS: She is on Mucomyst inhaled twice a day, 1 g IV every 8 hours, Brovana inhaled twice a day, DuoNeb every 4 hours p.r.n., Ecotrin 81 mg daily, Lasix 20 mg daily, Lotrisone 1 g twice a day at affected area, Lovenox 30 mg subcu daily, prednisone 20 mg daily, Pulmicort inhaled twice a day, Singulair 10 mg daily, Tylenol p.r.n., vancomycin 1 g IV twice a day. LABORATORY DATA: Reviewed and noted. No new lab available since yesterday. IMPRESSION AND PLAN: Severe pulmonary retention, probably secondary to cardiac diastolic dysfunction, same time with chronic lung disease, right leg cellulitis, sinusitis, pleural effusion, lung atelectasis. Pulmonary point of view, she is doing well. Continue p.o. and inhaled bronchodilator, antibiotics. Waiting for ventilation-perfusion scan. Rule out thromboembolic disease. Taper dose of steroids. Continue therapy. Thank you and we will follow with you. Ban Valentine MD
[2018-05-14] MEDS: Vancomycin 1gm in NS 250ml 1 GM/250 ML BAG IVPB SCH (05:16)
[2018-05-14] MEDS: Enoxaparin 30 mg Syringe SC SCH (05:18)
[2018-05-14] MEDS: Budesonide 0.5 mg/2 ml Inhal Susp UD IH SCH ×2 (08:29→20:20)
[2018-05-14] MEDS: Arformoterol 15 mcg/2 ml Inh Sol IH SCH ×2 (08:29→20:20)
[2018-05-14] MEDS: Acetylcysteine 20% Inhal Soln (4ml) INH SCH ×2 (08:29→20:20)
[2018-05-14 09:51] LABS: BASO # 0.01 K/mm3 (0.0-2.0); BASO % 0.1 % (0.0-3.0); EOS # 0.2 (0.0-0.7); EOS % 1.7 % (1.5-5.0); GRAN # 7.61 (1.4-6.5); GRAN % 79.1 % (50.0-68.0); LYMPH # 0.8 (1.2-3.4); LYMPH % 8.6 % (22.0-35.0); MEAN CELL VOLUME 99.5 fl (80.0-105.0); MEAN CORPUSCULAR HEMOGLOBIN 30.1 pg (25.0-35.0); MEAN CORPUSCULAR HGB CONC 30.2 g/dl (31.0-37.0); MEAN PLATELET VOLUME 9.6 fl (7.0-11.0); MONO % 10.5 % (1.0-6.0); RBC 4.32 10^6/uL (3.5-6.1); RED CELL DISTRIBUTION WIDTH 14.7 % (11.5-14.5); WHITE BLOOD COUNT 9.6 10^3/uL (4.5-11.0)
[2018-05-14 10:02] LABS: ALB/GLOB RATIO 1.1 (1.1-1.8); ALBUMIN 3.1 g/dL (3.0-4.8); ALT/SGPT 68 U/L (7-56); AST/SGOT 48 U/L (14-36); BLOOD UREA NITROGEN 43 mg/dL (7-21); CALCIUM 8.8 mg/dL (8.4-10.5); GFR NON-AFRICAN AMERICAN > 60
--- NOTE | 2018-05-14 10:51 | CP.PCM.PN ---
Subjective - Date & Time of Evaluation Date of Evaluation: 05/14/18 Time of Evaluation: 10:48 - Subjective Subjective: Podiatry progress note for Dr. Kelsey 82 yo female seen and evaluated at bedside. Resting comfortably. No acute complaints overnight. States that she is doing well working with PT. Denies N/V/F/C/SOB/CP and has no other pedal complaints. Objective - Vital Signs/Intake and Output Vital Signs (last 24 hours): Temp Pulse Resp BP Pulse Ox 98 F 75 12 131/68 67 L 05/14/18 10:00 05/14/18 10:00 05/14/18 10:00 05/14/18 10:00 05/14/18 10:00 - Medications Medications: Current Medications Acetaminophen (Tylenol 325mg Tab) 650 mg PO Q6H PRN; Protocol PRN Reason: Pain, moderate (4-7) Acetylcysteine (Acetylcysteine 20%) 3 ml INH BIDRESP ARAM; Protocol Last Admin: 05/14/18 08:29 Dose: 3 ml Albuterol/Ipratropium (Duoneb 3 Mg/0.5 Mg (3 Ml) Ud) 3 ml IH [id number] PRN; Protocol PRN Reason: Shortness of Breath Arformoterol Tartrate (Brovana) 15 mcg IH [id number] ARAM; Protocol Last Admin: 05/14/18 08:29 Dose: 15 mcg Aspirin (Ecotrin) 81 mg PO 0800 ARAM; Protocol Last Admin: 05/14/18 10:08 Dose: 81 mg Betamethasone/Clotrimazole (Lotrisone) 1 gm TOP BID ARAM Last Admin: 05/13/18 18:06 Dose: 1 appl Budesonide (Pulmicort Respules) 0.5 mg IH [id number] ARAM; Protocol Last Admin: 05/14/18 08:29 Dose: 0.5 mg Enoxaparin Sodium (Lovenox) 30 mg SC 0600 ARAM; Protocol Last Admin: 05/14/18 05:18 Dose: 30 mg Furosemide (Lasix) 20 mg IVP 0600 ARAM; Protocol Last Admin: 05/14/18 05:18 Dose: 20 mg Montelukast Sodium (Singulair) 10 mg PO HS ARAM; Protocol Last Admin: 05/13/18 21:27 Dose: 10 mg Prednisone (Prednisone Tab) 20 mg PO DAILY ARAM Last Admin: 05/14/18 10:11 Dose: 20 mg - Labs Labs: 05/14/18 09:30 05/14/18 09:30 - Constitutional Appears: Well, Non-toxic, No Acute Distress - Head Exam Head Exam: ATRAUMATIC, NORMOCEPHALIC - Extremities Exam Additional comments: B/L LE focused exam: Vasc: DP and PT pulses are faintly palpable 1/4; temp gradient warm to cool from proximal to distal b/l; cap refill <3 seconds to all digits; mild nonpitting edema present b/l R>L - improving since admission Neuro: Gross and protective sensations are intact b/l Derm: Open superficial wound present at the right posterior lower leg proximal to the ankle joint; base is granular; improved, cellulitis appears absent. No drainage, no malodor; no tunneling, streaking or tracking noted. MSK: Mild pain on palpation to the right lower leg wound; no other gross pathology noted b/l. Muscle power intact 5/5 to all groups b/l. - Neurological Exam Neurological Exam: Alert, Awake, Oriented x3 - Psychiatric Exam Psychiatric exam: Normal Affect, Normal Mood Assessment and Plan - Assessment and Plan (Free Text) Assessment: 82 yo female patient seen and evaluated for right lower leg wound and cellulitis Plan: Patient seen and evaluated at the bedside with Dr. Kelsey Charts and labs reviewed - afebrile, absent leukocytosis Right leg wound cx - Pseudomonas aeruginosa and serratia marcescens SIDNEY/PVR - possible right SFA, popliteal, and/or trifurcation disease Venous duplex - no DVT Legs cleansed with saline and lotion applied. Right leg dressed with telfa and kerlix. Tubigrip applied to b/l legs Wound care order for visiting nurse: - Silvercell NONSTICK and bordered gauze MWF - Tubigrip applied b/l Contine abx as per medicine Podiatry will continue to follow up the patient while in house.
--- NOTE | 2018-05-14 12:54 | PN ---
DATE: 05/14/2018 PULMONARY PROGRESS NOTE REFERRING PHYSICIAN: Dr. Sandoval. SUBJECTIVE: The patient is lying in the bed . Awake, alert. Feels better. Decreased rhinitis. Decreased cough. No chest pain. No nausea, no vomiting, no diarrhea. Decreased right leg swelling. OBJECTIVE: GENERAL: In no acute distress. VITAL SIGNS: Temperature is 98, heart rate is 75, respiratory rate is 12, blood pressure 131/68, pulse ox 96% on 2 L nasal cannula. HEENT: Moist mucous membrane. No ulcer or thrush noted. NECK: Supple. No JVD. LUNGS: Have a fair airflow. Prolonged expiratory phase. HEART: S1 and S2. ABDOMEN: Soft, nontender. No organomegaly. EXTREMITIES: Does have a right leg edema and swelling, which is much improved. NEUROLOGICAL: Awake and alert. Follows simple command. MEDICATIONS: She is on Mucomyst 20% inhaled twice a day, Brovana inhaled twice a day, DuoNeb every 4 hours p.r.n., Ecotrin 81 mg daily, Lasix 20 mg daily, Lotrisone at affected area, Lovenox 30 mg subcu daily, prednisone 20 mg daily, Pulmicort inhaled twice a day, Singulair 10 mg at bedtime, Tylenol p.r.n. basis. LABORATORY DATA: Shows hemoglobin 13, hematocrit 43, WBC 9.6, platelet is 209. Sodium 140, potassium 5.4, chloride 96, bicarbonate 40, BUN 43, creatinine 0.4, calcium 8.8, phosphorus 3.1, magnesium 1.8, AST 48, ALT 68, albumin is 3.1. IMPRESSION AND PLAN: Severe pulmonary hypertension, probably secondary to cardiac diastolic dysfunction and chronic lung disease, also has a right leg cellulitis, history of sinusitis, pleural effusion, pulmonary atelectasis. Pulmonary point of view, doing well. Continue bronchodilator, keep head at 45 degrees. Antibiotics. Gastric prophylaxis, deep venous thrombosis prophylaxis. Fall precaution. Thank you and we will follow with you. Ban Valentine MD
[2018-05-14 16:45] VITALS: RESP 20; TEMP 98.2
[2018-05-14 16:58] VITALS: PULSE 82
[2018-05-14] MEDS: Clotrimazole/Betamethasone Cream(15 gm) TOP SCH (17:30)
[2018-05-15] MEDS: Enoxaparin 30 mg Syringe SC SCH (05:29)
--- NOTE | 2018-05-15 06:37 | CP.PCM.PN ---
<Yeimy Soriano - Last Filed: 05/15/18 11:31> Subjective - Date & Time of Evaluation Date of Evaluation: 05/15/18 Time of Evaluation: 07:00 - Subjective Subjective: Infectious Disease Progress Note for Fercho Murcia PGY3 Patient seen and examined at bedside. She is resting in bed comfortably without complaints and is afebrile. Objective - Vital Signs/Intake and Output Vital Signs (last 24 hours): Temp Pulse Resp BP Pulse Ox 98.2 F 82 20 136/54 L 91 L 05/14/18 16:00 05/14/18 16:40 05/14/18 16:00 05/15/18 05:28 05/14/18 16:40 - Medications Medications: Current Medications Acetaminophen (Tylenol 325mg Tab) 650 mg PO Q6H PRN; Protocol PRN Reason: Pain, moderate (4-7) Acetylcysteine (Acetylcysteine 20%) 3 ml INH BIDRESP ARAM; Protocol Last Admin: 05/14/18 20:20 Dose: 3 ml Albuterol/Ipratropium (Duoneb 3 Mg/0.5 Mg (3 Ml) Ud) 3 ml IH [id number] PRN; Protocol PRN Reason: Shortness of Breath Arformoterol Tartrate (Brovana) 15 mcg IH [id number] ARAM; Protocol Last Admin: 05/14/18 20:20 Dose: 15 mcg Aspirin (Ecotrin) 81 mg PO 0800 ARAM; Protocol Last Admin: 05/14/18 10:08 Dose: 81 mg Betamethasone/Clotrimazole (Lotrisone) 1 gm TOP BID ARAM Last Admin: 05/14/18 17:30 Dose: 1 appl Budesonide (Pulmicort Respules) 0.5 mg IH [id number] ARAM; Protocol Last Admin: 05/14/18 20:20 Dose: 0.5 mg Enoxaparin Sodium (Lovenox) 30 mg SC 0600 ARAM; Protocol Last Admin: 05/15/18 05:29 Dose: 30 mg Furosemide (Lasix) 20 mg IVP 0600 ARAM; Protocol Last Admin: 05/15/18 05:28 Dose: Not Given Montelukast Sodium (Singulair) 10 mg PO HS ARAM; Protocol Last Admin: 05/14/18 21:45 Dose: 10 mg Prednisone (Prednisone Tab) 20 mg PO DAILY [facility] Last Admin: 05/14/18 10:11 Dose: 20 mg - Labs Labs: 05/14/18 09:30 05/14/18 09:30 - Constitutional Appears: No Acute Distress - Head Exam Head Exam: ATRAUMATIC, NORMAL INSPECTION, NORMOCEPHALIC - Eye Exam Eye Exam: Normal appearance, PERRL Pupil Exam: NORMAL ACCOMODATION, PERRL - ENT Exam ENT Exam: Mucous Membranes Moist - Respiratory Exam Respiratory Exam: Clear to Ausculation Bilateral, NORMAL BREATHING PATTERN. absent: Rales, Rhonchi, Wheezes - Cardiovascular Exam Cardiovascular Exam: REGULAR RHYTHM, +S1, +S2, Murmur. absent: Gallop, Rubs - GI/Abdominal Exam GI & Abdominal Exam: Soft, Normal Bowel Sounds. absent: Tenderness, Mass, Rebound - Extremities Exam Extremities Exam: Pedal Edema Additional comments: LLE dressing in place- clean and dry. Mild bilateral erythema - Neurological Exam Neurological Exam: Alert, Awake, CN II-XII Intact, Oriented x3 - Psychiatric Exam Psychiatric exam: Normal Affect, Normal Mood - Skin Skin Exam: Dry, Warm Assessment and Plan - Assessment and Plan (Free Text) Assessment: 1. LLE puruelent cellulitis - + for pseudomonas 2. COPD 3. Diastolic CHF Plan: Patient completed course of Aztreonam and Vancomycin. She is off antibiotics and is at risk for nosocomial infections. Will continue to monitor clinically. Case seen, discussed and reviewed with Dr. Martha Soriano PGY3 <Freddy Thomas - Last Filed: 05/15/18 20:10> Objective - Vital Signs/Intake and Output Vital Signs (last 24 hours): Temp Pulse Resp BP Pulse Ox 98.2 F 82 20 144/74 93 L 05/15/18 16:00 05/15/18 16:00 05/15/18 16:00 05/15/18 16:00 05/15/18 16:00 - Medications Medications: Current Medications Acetaminophen (Tylenol 325mg Tab) 650 mg PO Q6H PRN; Protocol PRN Reason: Pain, moderate (4-7) Acetylcysteine (Acetylcysteine 20%) 3 ml INH BIDRESP ARAM; Protocol Last Admin: 05/15/18 07:06 Dose: 3 ml Albuterol/Ipratropium (Duoneb 3 Mg/0.5 Mg (3 Ml) Ud) 3 ml IH [id number] PRN; Protocol PRN Reason: Shortness of Breath Arformoterol Tartrate (Brovana) 15 mcg IH [id number] ARAM; Protocol Last Admin: 05/15/18 07:06 Dose: 15 mcg Aspirin (Ecotrin) 81 mg PO 0800 ARAM; Protocol Last Admin: 05/15/18 08:35 Dose: 81 mg Betamethasone/Clotrimazole (Lotrisone) 1 gm TOP BID ARAM Last Admin: 05/15/18 17:28 Dose: Not Given Budesonide (Pulmicort Respules) 0.5 mg IH [id number] ARAM; Protocol Last Admin: 05/15/18 07:06 Dose: 0.5 mg Enoxaparin Sodium (Lovenox) 30 mg SC 0600 ARAM; Protocol Last Admin: 05/15/18 05:29 Dose: 30 mg Furosemide (Lasix) 20 mg IVP 0600 ARAM; Protocol Last Admin: 05/15/18 05:28 Dose: Not Given Montelukast Sodium (Singulair) 10 mg PO HS ARAM; Protocol Last Admin: 05/14/18 21:45 Dose: 10 mg Prednisone (Prednisone Tab) 10 mg PO DAILY ARAM - Labs Labs: 05/14/18 09:30 05/14/18 09:30 Assessment and Plan - Assessment and Plan (Free Text) Plan: Infectious Diseases Attending Physician Attestation Patient seen and examined, discussed with medical staff services manager. I have reviewed the patient's history of present illness, past medical, family and social histories, personal history, physical exam, lab findings and imaging studies. I agree with the above findings, assessment and plan. In addition, we have completed the course of antibiotics for right lower extremity cellulitis. Will continue to monitor clinically.
[2018-05-15] MEDS: Arformoterol 15 mcg/2 ml Inh Sol IH SCH ×2 (07:06→20:46)
[2018-05-15] MEDS: Budesonide 0.5 mg/2 ml Inhal Susp UD IH SCH ×2 (07:06→20:46)
[2018-05-15] MEDS: Acetylcysteine 20% Inhal Soln (4ml) INH SCH ×2 (07:06→20:45)
[2018-05-15] MEDS ORDERED: Sod Polystyrene Sulf 15 gm/60 ml Susp PO ONE (07:22)
--- NOTE | 2018-05-15 07:25 | CP.PCM.PN ---
<Alex Cho - Last Filed: 05/15/18 17:07> Subjective - Date & Time of Evaluation Date of Evaluation: 05/15/18 Time of Evaluation: 07:25 - Subjective Subjective: PGY-1 Medicine Progress Note for Dr. Sandoval Patient seen and examined at bedside this AM, resting comfortably. Patient is in good spirits, no acute complaints at this time. RLE cellulitis continues to improve with diminished swelling and erythema. Objective - Vital Signs/Intake and Output Vital Signs (last 24 hours): Temp Pulse Resp BP Pulse Ox 98.2 F 82 20 136/54 L 91 L 05/14/18 16:00 05/14/18 16:40 05/14/18 16:00 05/15/18 05:28 05/14/18 16:40 - Medications Medications: Current Medications Acetaminophen (Tylenol 325mg Tab) 650 mg PO Q6H PRN; Protocol PRN Reason: Pain, moderate (4-7) Acetylcysteine (Acetylcysteine 20%) 3 ml INH BIDRESP ARAM; Protocol Last Admin: 05/15/18 07:06 Dose: 3 ml Albuterol/Ipratropium (Duoneb 3 Mg/0.5 Mg (3 Ml) Ud) 3 ml IH [id number] PRN; Protocol PRN Reason: Shortness of Breath Arformoterol Tartrate (Brovana) 15 mcg IH [id number] ARAM; Protocol Last Admin: 05/15/18 07:06 Dose: 15 mcg Aspirin (Ecotrin) 81 mg PO 0800 ARAM; Protocol Last Admin: 05/14/18 10:08 Dose: 81 mg Betamethasone/Clotrimazole (Lotrisone) 1 gm TOP BID ARAM Last Admin: 05/14/18 17:30 Dose: 1 appl Budesonide (Pulmicort Respules) 0.5 mg IH [id number] ARAM; Protocol Last Admin: 05/15/18 07:06 Dose: 0.5 mg Enoxaparin Sodium (Lovenox) 30 mg SC 0600 ARAM; Protocol Last Admin: 05/15/18 05:29 Dose: 30 mg Furosemide (Lasix) 20 mg IVP 0600 ARAM; Protocol Last Admin: 05/15/18 05:28 Dose: Not Given Montelukast Sodium (Singulair) 10 mg PO HS ARAM; Protocol Last Admin: 05/14/18 21:45 Dose: 10 mg Prednisone (Prednisone Tab) 20 mg PO DAILY ARAM Last Admin: 05/14/18 10:11 Dose: 20 mg - Labs Labs: 05/14/18 09:30 05/14/18 09:30 - Constitutional Appears: Non-toxic, No Acute Distress - Head Exam Head Exam: ATRAUMATIC, NORMAL INSPECTION, NORMOCEPHALIC - Eye Exam Eye Exam: EOMI, Normal appearance Pupil Exam: NORMAL ACCOMODATION - ENT Exam ENT Exam: Mucous Membranes Moist, Normal Exam - Neck Exam Neck Exam: Full ROM, Normal Inspection - Respiratory Exam Respiratory Exam: Clear to Ausculation Bilateral, NORMAL BREATHING PATTERN. absent: Accessory Muscle Use, Rales, Rhonchi, Wheezes, Respiratory Distress, Stridor - Cardiovascular Exam Cardiovascular Exam: REGULAR RHYTHM, +S1, +S2 - GI/Abdominal Exam GI & Abdominal Exam: Soft, Normal Bowel Sounds. absent: Distended, Firm, Guarding, Rigid, Tenderness, Organomegaly - Extremities Exam Extremities Exam: Normal Capillary Refill. absent: Calf Tenderness, Joint Swelling Additional comments: RLE dressing clean/dry/intact - Back Exam Back Exam: NORMAL INSPECTION - Neurological Exam Neurological Exam: Alert, Awake, Oriented x3 - Psychiatric Exam Psychiatric exam: Normal Affect, Normal Mood - Skin Additional comments: Per podiatry: Open superficial wound present at the right posterior lower leg proximal to the ankle joint; base is granular; dermatitis appreciated along with cellulitis about the right lower leg - improving since admission. Serous drainage noted, No purulent drainage, No malodor; no tunneling, streaking or tracking noted. Assessment and Plan - Assessment and Plan (Free Text) Assessment: 82 year old female with past medical history of COPD who presented with bilateral LE edema and right leg erythema. She was admitted for cellulitis and started on iv antibiotics. Patient discharged and admitted to TCU for further IV antibiotics and physical rehabilitation. Plan: RLE Cellulitis in setting of lower extremity swelling - Podiatry was consulted and evaluated the patient, continue with wound care, follow up recs - Interventional Radiology (Dr. Shaheed Burden) on board - borderline abnormal SIDNEY/PVR: possible right SFA, popliteal, and/or trifu rcation disease - Lower extremity swelling improved since admission, continue IV lasix, hold if SBP <100mmHg - Lower extremity doppler negative for DVT - ID consulted and following - C/w vanco and aztreonam Chronic diastolic CHF -Echo with R ventricle volume and pressure overload, severely dilated RV; severe tricuspid regurgitation RVSP 145 mmHg, severe pulmonary HTN - Continue with current medical management Severe pulmonary HTN as per echocardiogram - Pulmonology(dr. Valentine) consulted and following - V/Q scan: low probability ventilation perfusion scan for PE Hx of COPD - duonebs q4 prn for SOB PPX, Diet, Disposition - DVT ppx: lovenox - GI ppx: not indicated - Diet: HHD - Dispo: d/c tomorrow. She will need home oxygen prior to discharge.She will need further work up for etiology of Pulmonary HTN as out patient.Pulmonary evaluation is appreciated. Case discussed with Dr. Jaime Cho DO, PGY-1 <Dheeraj Sandoval - Last Filed: 05/16/18 07:43> Objective - Vital Signs/Intake and Output Vital Signs (last 24 hours): Temp Pulse Resp BP Pulse Ox 98.2 F 82 20 152/75 H 93 L 05/15/18 16:00 05/15/18 16:00 05/15/18 16:00 05/16/18 05:22 05/15/18 16:00 - Medications Medications: Current Medications Acetaminophen (Tylenol 325mg Tab) 650 mg PO Q6H PRN; Protocol PRN Reason: Pain, moderate (4-7) Acetylcysteine (Acetylcysteine 20%) 3 ml INH BIDRESP ARAM; Protocol Last Admin: 05/15/18 20:45 Dose: 3 ml Albuterol/Ipratropium (Duoneb 3 Mg/0.5 Mg (3 Ml) Ud) 3 ml IH [id number] PRN; Protocol PRN Reason: Shortness of Breath Last Admin: 05/15/18 20:48 Dose: 3 ml Arformoterol Tartrate (Brovana) 15 mcg IH [id number] ARAM; Protocol Last Admin: 05/15/18 20:46 Dose: 15 mcg Aspirin (Ecotrin) 81 mg PO 0800 ARAM; Protocol Last Admin: 05/15/18 08:35 Dose: 81 mg Betamethasone/Clotrimazole (Lotrisone) 1 gm TOP BID ARAM Last Admin: 05/15/18 17:28 Dose: Not Given Budesonide (Pulmicort Respules) 0.5 mg IH [id number] ARAM; Protocol Last Admin: 05/15/18 20:46 Dose: 0.5 mg Enoxaparin Sodium (Lovenox) 30 mg SC 0600 ARAM; Protocol Last Admin: 05/16/18 05:15 Dose: 30 mg Furosemide (Lasix) 20 mg IVP 0600 ARAM; Protocol Last Admin: 05/16/18 05:22 Dose: 20 mg Montelukast Sodium (Singulair) 10 mg PO HS ARAM; Protocol Last Admin: 05/15/18 21:31 Dose: 10 mg Prednisone (Prednisone Tab) 10 mg PO DAILY ARAM - Labs Labs: 05/14/18 09:30 05/14/18 09:30 Attending/Attestation - Attestation I have personally seen and examined this patient.: Yes I have fully participated in the care of the patient.: Yes I have reviewed all pertinent clinical information, including history, physical exam and plan: Yes Notes (Text): 05/15/18 82 year old female with past medical history of COPD who presented with right leg cellulitis and bilateral lower extremity edema. She was started on iv antibiotics and iv lasix with improvement of symptoms. ID and podiatry are following. She was also found to have severe pulmonary hypertension and diastolic CHF on ec hocardiogram. VQ scan showed low probability for PE. Pulmonary is following and recommended outpatient PFTs and sleep study. Patient will also need home O2 which is being arranged. D/c planning tomorrow. Dheeraj Sandoval MD Hospitalist.
--- NOTE | 2018-05-15 08:20 | PN ---
DATE: 05/14/2018 SUBJECTIVE: The patient is in bed, in no acute distress. PHYSICAL EXAMINATION VITAL SIGNS: The patient has temperature of 98, blood pressure is 130/60, respiratory rate of 18. HEENT: Unremarkable. NECK: Supple. LUNGS: Decreased breath sounds. HEART: Normal S1, S2. ABDOMEN: Soft. LABORATORY EXAMINATION: Reveals a white count of 9.6, hemoglobin of 13, platelets of 209. Chemistry reveals a BUN of 43, creatinine of 0.7. Immunology is noted. Microbiology is reviewed. ASSESSMENT AND PLAN: This is an 82-year-old female with right leg cellulitis in a patient with Pseudomonas, also with chronic obstructive lung disease, diastolic congestive heart failure, and the patient had received 7 days of vancomycin and aztreonam and currently review of orders reveals the patient to be off of antibiotics. The patient is on prednisone and at risk for developing nosocomial infections. She is awake and alert, with nieces this morning when I saw her. Leonid Frederick MD
--- NOTE | 2018-05-15 09:33 | CP.PCM.PN ---
<Arnav Cameron - Last Filed: 05/15/18 12:31> Subjective - Date & Time of Evaluation Date of Evaluation: 05/15/18 Time of Evaluation: 09:32 - Subjective Subjective: Podiatry progress note for Dr. Ruiz 82 yo female seen and evaluated at bedside. Resting comfortably. No acute complaints overnight. States that she is doing well working with PT. Denies N/V/F/C/SOB/CP and has no other pedal complaints. Objective - Vital Signs/Intake and Output Vital Signs (last 24 hours): Temp Pulse Resp BP Pulse Ox 98.2 F 82 20 136/54 L 91 L 05/14/18 16:00 05/14/18 16:40 05/14/18 16:00 05/15/18 05:28 05/14/18 16:40 - Medications Medications: Current Medications Acetaminophen (Tylenol 325mg Tab) 650 mg PO Q6H PRN; Protocol PRN Reason: Pain, moderate (4-7) Acetylcysteine (Acetylcysteine 20%) 3 ml INH BIDRESP ARAM; Protocol Last Admin: 05/15/18 07:06 Dose: 3 ml Albuterol/Ipratropium (Duoneb 3 Mg/0.5 Mg (3 Ml) Ud) 3 ml IH [id number] PRN; Protocol PRN Reason: Shortness of Breath Arformoterol Tartrate (Brovana) 15 mcg IH [id number] ARAM; Protocol Last Admin: 05/15/18 07:06 Dose: 15 mcg Aspirin (Ecotrin) 81 mg PO 0800 ARAM; Protocol Last Admin: 05/15/18 08:35 Dose: 81 mg Betamethasone/Clotrimazole (Lotrisone) 1 gm TOP BID ARAM Last Admin: 05/14/18 17:30 Dose: 1 appl Budesonide (Pulmicort Respules) 0.5 mg IH [id number] ARAM; Protocol Last Admin: 05/15/18 07:06 Dose: 0.5 mg Enoxaparin Sodium (Lovenox) 30 mg SC 0600 ARAM; Protocol Last Admin: 05/15/18 05:29 Dose: 30 mg Furosemide (Lasix) 20 mg IVP 0600 ARAM; Protocol Last Admin: 05/15/18 05:28 Dose: Not Given Montelukast Sodium (Singulair) 10 mg PO HS ARAM; Protocol Last Admin: 05/14/18 21:45 Dose: 10 mg Prednisone (Prednisone Tab) 20 mg PO DAILY ARAM Last Admin: 05/14/18 10:11 Dose: 20 mg - Labs Labs: 05/14/18 09:30 05/14/18 09:30 - Constitutional Appears: Well, Non-toxic, No Acute Distress - Head Exam Head Exam: ATRAUMATIC, NORMOCEPHALIC - Extremities Exam Additional comments: B/L LE focused exam: Vasc: DP and PT pulses are faintly palpable 1/4; temp gradient warm to cool from proximal to distal b/l; cap refill <3 seconds to all digits; mild nonpitting edema present b/l R>L - improving since admission Neuro: Gross and protective sensations are intact b/l Derm: Open superficial wound present at the right posterior lower leg proximal to the ankle joint; base is granular; improved, cellulitis appears absent. No drainage, no malodor; no tunneling, streaking or tracking noted. MSK: Mild pain on palpation to the right lower leg wound; no other gross pathology noted b/l. Muscle power intact 5/5 to all groups b/l. - Neurological Exam Neurological Exam: Alert, Awake, Oriented x3 - Psychiatric Exam Psychiatric exam: Normal Affect, Normal Mood Assessment and Plan - Assessment and Plan (Free Text) Assessment: 82 yo female patient seen and evaluated for right lower leg wound and cellulitis Plan: Patient seen and evaluated at the bedside with Dr. Kelsey Charts and labs reviewed - afebrile, absent leukocytosis Right leg wound cx - Pseudomonas aeruginosa and serratia marcescens SIDNEY/PVR - possible right SFA, popliteal, and/or trifurcation disease Venous duplex - no DVT Legs cleansed with saline and lotion applied. Right leg dressed with telfa and kerlix. Tubigrip applied to b/l legs Wound care order for visiting nurse: - Silvercell NONSTICK and bordered gauze MWF - Tubigrip applied b/l Contine abx as per medicine Podiatry will continue to follow up the patient while in house. <Ramez Ruiz - Last Filed: 05/15/18 19:03> Objective - Vital Signs/Intake and Output Vital Signs (last 24 hours): Temp Pulse Resp BP Pulse Ox 98.2 F 82 20 144/74 93 L 05/15/18 16:00 05/15/18 16:00 05/15/18 16:00 05/15/18 16:00 05/15/18 16:00 - Medications Medications: Current Medications Acetaminophen (Tylenol 325mg Tab) 650 mg PO Q6H PRN; Protocol PRN Reason: Pain, moderate (4-7) Acetylcysteine (Acetylcysteine 20%) 3 ml INH BIDRESP ARAM; Protocol Last Admin: 05/15/18 07:06 Dose: 3 ml Albuterol/Ipratropium (Duoneb 3 Mg/0.5 Mg (3 Ml) Ud) 3 ml IH [id number] PRN; Protocol PRN Reason: Shortness of Breath Arformoterol Tartrate (Brovana) 15 mcg IH [id number] ARAM; Protocol Last Admin: 05/15/18 07:06 Dose: 15 mcg Aspirin (Ecotrin) 81 mg PO 0800 ARAM; Protocol Last Admin: 05/15/18 08:35 Dose: 81 mg Betamethasone/Clotrimazole (Lotrisone) 1 gm TOP BID ARAM Last Admin: 05/15/18 17:28 Dose: Not Given Budesonide (Pulmicort Respules) 0.5 mg IH [id number] ARAM; Protocol Last Admin: 05/15/18 07:06 Dose: 0.5 mg Enoxaparin Sodium (Lovenox) 30 mg SC 0600 ARAM; Protocol Last Admin: 05/15/18 05:29 Dose: 30 mg Furosemide (Lasix) 20 mg IVP 0600 ARAM; Protocol Last Admin: 05/15/18 05:28 Dose: Not Given Montelukast Sodium (Singulair) 10 mg PO HS ARAM; Protocol Last Admin: 05/14/18 21:45 Dose: 10 mg Prednisone (Prednisone Tab) 10 mg PO DAILY ARAM - Labs Labs: 05/14/18 09:30 05/14/18 09:30 Attending/Attestation - Attestation I have personally seen and examined this patient.: Yes I have fully participated in the care of the patient.: Yes I have reviewed all pertinent clinical information, including history, physical exam and plan: Yes
[2018-05-15] MEDS: Clotrimazole/Betamethasone Cream(15 gm) TOP SCH ×2 (09:54→17:28)
[2018-05-15 16:19] VITALS: O2SAT 93
--- NOTE | 2018-05-15 19:59 | PN ---
DATE: 05/15/2018 PULMONARY PROGRESS NOTE REFERRING PHYSICIAN: Dr. Sandoval SUBJECTIVE: She is out of bed to chair. Night was unremarkable. Feels better. Breathing is improved. Cough is decreased. No nausea. No vomiting. No diarrhea. Decreased right leg swelling and erythema. OBJECTIVE: GENERAL: In no acute distress. VITAL SIGNS: Temperature is 98, heart rate is 82, respiratory rate is 20, blood pressure is 144/74, and pulse ox 93% on 2 L nasal cannula. HEENT: Moist mucous membranes. Small oral cavity. LUNGS: Has a scattered rhonchi, overall poor airflow. HEART: S1 and S2. ABDOMEN: Soft and nontender. No organomegaly. EXTREMITIES: Has a right leg swelling, erythema is decreased. NEUROLOGIC: Awake, alert and follows simple command. MEDICATIONS: She is on Mucomyst inhaled twice a day, Brovana inhaled twice a day, DuoNeb every 4 hours p.r.n., Ecotrin 81 mg daily, Lasix 20 mg daily, Lotrisone cream effected area twice a day, Lovenox 30 mg daily, prednisone 20 mg daily, Pulmicort inhaled twice a day, Singulair 10 mg daily, and Tylenol p.r.n. basis. LABORATORY DATA: Reviewed, no new data is available since yesterday. IMPRESSION AND PLAN: Severe pulmonary hypertension probably secondary to cardiac diastolic dysfunction and chronic lung disease, also has a right lower extremity cellulitis, history of probably sinusitis, pleural effusion, and pulmonary atelectasis. Pulmonary point of view, doing well. We will decrease prednisone to 10 mg daily, antibiotics as per Infectious Disease. Gastric prophylaxis, deep venous thrombosis prophylaxis, fall precaution, discharge as outpatient, will attended sleep study and PFT. Thank you and we will follow with you. Ban Valentine MD
[2018-05-16] MEDS: Enoxaparin 30 mg Syringe SC SCH (05:15)
[2018-05-16 05:23] VITALS: BP 152/75
--- NOTE | 2018-05-16 07:24 | CP.PCM.DIS ---
<Alex Cho - Last Filed: 05/16/18 14:32> Provider - Provider Date of Admission: 05/08/18 17:54 Attending physician: Dheeraj Sandoval MD Time Spent in preparation of Discharge (in minutes): 40 Hospital Course - Lab Results Lab Results: Most Recent Lab Values WBC 9.6 10^3/uL (4.5-11.0) 05/14/18 09:30 RBC 4.32 10^6/uL (3.5-6.1) 05/14/18 09:30 Hgb 13.0 g/dL (12.0-16.0) 05/14/18 09:30 Hct 43.0 % (36.0-48.0) 05/14/18 09:30 MCV 99.5 fl (80.0-105.0) D 05/14/18 09:30 MCH 30.1 pg (25.0-35.0) 05/14/18 09:30 MCHC 30.2 g/dl (31.0-37.0) L 05/14/18 09:30 RDW 14.7 % (11.5-14.5) H 05/14/18 09:30 Plt Count 209 10^3/uL (120.0-450.0) 05/14/18 09:30 MPV 9.6 fl (7.0-11.0) 05/14/18 09:30 Gran % 79.1 % (50.0-68.0) H 05/14/18 09:30 Lymph % (Auto) 8.6 % (22.0-35.0) L 05/14/18 09:30 Jack % (Auto) 10.5 % (1.0-6.0) H 05/14/18 09:30 Eos % (Auto) 1.7 % (1.5-5.0) 05/14/18 09:30 Baso % (Auto) 0.1 % (0.0-3.0) 05/14/18 09:30 Gran # 7.61 (1.4-6.5) H 05/14/18 09:30 Lymph # (Auto) 0.8 (1.2-3.4) L 05/14/18 09:30 Jack # (Auto) 1.0 (0.1-0.6) H 05/14/18 09:30 Eos # (Auto) 0.2 (0.0-0.7) 05/14/18 09:30 Baso # (Auto) 0.01 K/mm3 (0.0-2.0) 05/14/18 09:30 ESR 18 mm/hr (0.0-20.0) 05/10/18 06:00 Sodium 140 mmol/L (132-148) 05/14/18:30 Potassium 5.4 mmol/L (3.6-5.0) H 05/14/18:30 Chloride 96 mmol/L (98-107) L 05/14/18:30 Carbon Dioxide 40 mmol/L (21-33) H 05/14/18:30 Anion Gap 9 (10-20) L 05/14/18:30 BUN 43 mg/dL (7-21) H 05/14/18:30 Creatinine 0.7 mg/dl (0.7-1.2) 05/14/18:30 Est GFR ( Amer) > 60 05/14/18 09:30 Est GFR (Non-Af Amer) > 60 05/14/18 09:30 Random Glucose 95 mg/dL (70-110) 05/14/18 09:30 Calcium 8.8 mg/dL (8.4-10.5) 05/14/18 09:30 Phosphorus 3.1 mg/dL (2.5-4.5) 05/14/18:30 Magnesium 1.8 mg/dL (1.7-2.2) 05/14/18:30 Total Bilirubin 0.4 mg/dL (0.2-1.3) 05/14/18:30 AST 48 U/L (14-36) H 05/14/18:30 ALT 68 U/L (7-56) H 05/14/18 09:30 Alkaline Phosphatase 51 U/L (38-126) 05/14/18 09:30 C-Reactive Protein 8.80 mg/L (0.0-9.9) 05/10/18 06:00 Total Protein 6.1 g/dL (5.8-8.3) 05/14/18:30 Albumin 3.1 g/dL (3.0-4.8) 05/14/18 09:30 Globulin 2.9 gm/dL 05/14/18 09:30 Albumin/Globulin Ratio 1.1 (1.1-1.8) 05/14/18 09:30 Rheumatoid Factor IgG <5 U (<=6) 05/10/18 06:00 Rheumatoid Factor IgA <5 U (<=6) 05/10/18 06:00 Rheumatoid Factor IgM <5 U (<=6) 05/10/18 06:00 DEXTER Nuclear Membr Pat Negative (Negative) 05/10/18 06:00 - Hospital Course Hospital Course: HPI: Ms. He is an 82 year old female with a past medical history of COPD who [place] [facility] [place] for evaluation and treatment of leg swelling/rash and difficulty with ambulation. Patient evaluated and admitted for cellulitis/dermatitis and rule out congestive heart failure. Patient was seen by podiatry for right lower extremity cellulitis with continued wound care and antibiotic recommendations. Patient was evaluated for possible congestive heart failure as etiology of lower extremity swelling. Patient had Echocardiogram showing diastolic congestive heart failure and significant pulmonary hypertension. Pulmonology was consulted with recommendations of V/Q scan for rule out thromboembolic etiology for pulmonary hypertension. CT chest without contrast was preformed showing moderate bilateral pleural effusions, right greater than left with evidence of pericardial effusion measuring 10 mm in thickness. Patient was evaluated by physical therapy for further strength and conditioning secondary to deconditioned state. Patient was transferred to TCU for further physical therapy rehab work and IV antibiotics. During the course of admission: She was started on IV lasix and completed a course of IV antibiotics with improvement of symptoms. ID and podiatry both followed the patient during hospital course, with wound dressing changes completed daily. She was also found to have severe pulmonary hypertension and diastolic CHF on echocardiogram. Pulmonology was consulted and VQ scan showed low probability for pulmonary embolism. Per recommendations, patient is instructed to follow up outpatient for pulmonary function testing as well as sleep study testing. Patient remained afebrile during hospital course with no leukocytosis. Right lower extremity cellulitis demonstrated diminished erythema, swelling, and tenderness. Patient clinically improved and is medically stable for discharge to home, as per Dr Sandoval. Patient instructed to take medications as prescribed. Patient also has home oxygen supply set up at home, as needed. Please follow up with [facility], located on GROUND Floor, within 1 week of discharge for continued monitoring and medical management. Patient is instructed to follow up with pulmonology after clinic visit for outpatient pulmonary function testing and sleep study. Contact information for the clinic is provided below: [facility] [address] [place] [address] If symptoms worsen, please return to the ED for further care. The following is a summary of hospital course. For further detail, please refer to EMR. - Date & Time of H&P Date of H&P: 05/16/18 Time of H&P: 11:41 Discharge Exam - Head Exam Head Exam: ATRAUMATIC, NORMAL INSPECTION, NORMOCEPHALIC - Eye Exam Eye Exam: EOMI, Normal appearance Pupil Exam: NORMAL ACCOMODATION - ENT Exam ENT Exam: Mucous Membranes Moist, Normal Exam - Neck Exam Neck exam: Full Rom, Normal Inspection - Respiratory Exam Respiratory Exam: Clear to PA & Lateral, NORMAL BREATHING PATTERN, UNREMARKABLE. absent: Accessory Muscle Use, Rales, Rhonchi, Wheezes, Respiratory Distress, Stridor - Cardiovascular Exam Cardiovascular Exam: REGULAR RHYTHM, +S1, +S2 - GI/Abdominal Exam GI & Abdominal Exam: Normal Bowel Sounds, Soft, Unremarkable. absent: Distended, Firm, Guarding, Rebound, Rigid, Tenderness - Extremities Exam Extremities exam: normal capillary refill, pedal pulses present Additional comments: RLE dressing clean/dry/intact Diminished erythema, leg swelling - Neurological Exam Neurological exam: Alert, CN II-XII Intact, Oriented x3 - Psychiatric Exam Psychiatric exam: Normal Affect, Normal Mood - Skin Skin Exam: Dry, Intact, Warm Additional comments: Per Podiatry: Open superficial wound present at the right posterior lower leg proximal to the ankle joint; base is granular; improved, cellulitis appears absent. No drainage, no malodor; no tunneling, streaking or tracking noted. Discharge Plan - Discharge Medications Prescriptions: Albuterol Sulfate 2.5 mg IH Q4H PRN #1 vial.neb PRN Reason: Shortness Of Breath Arformoterol [Brovana] 15 mcg IH [id number] #1 neb Furosemide [Lasix] 20 mg PO DAILY #30 tablet - Follow Up Plan Condition: GOOD Disposition: HOME/ ROUTINE Instructions: Heart Healthy Diet, Cellulitis (Skin Infection), Adult (DC), Exacerbation of COPD (DC) Additional Instructions: Patient is medically stable for discharge to home, as per Dr. Sandoval. Patient instructed to take medications as prescribed. Patient also has home oxygen supply set up at home, as needed. Please follow up with [facility], located on [address]OUND Floor, within 1 week of discharge for continued monitoring and medical management. Patient is instructed to follow up with pulmonology after clinic visit for outpatient pulmonary function testing and sleep study. Contact information for the clinic is provided below: [facility] [place] [address] If symptoms worsen, please return to the ED for further care. Referrals: Clinic,Med Surg [Non-Staff] - <Dheeraj Sandoval - Last Filed: 05/16/18 15:01> Provider - Provider Date of Admission: 05/08/18 17:54 Attending physician: Dheeraj Sandoval MD Hospital Course - Lab Results Lab Results: Most Recent Lab Values WBC 10.5 10^3/uL (4.5-11.0) 05/16/18 09:00 RBC 4.14 10^6/uL (3.5-6.1) 05/16/18 09:00 Hgb 12.5 g/dL (12.0-16.0) 05/16/18 09:00 Hct 40.8 % (36.0-48.0) 05/16/18 09:00 MCV 98.6 fl (80.0-105.0) 05/16/18 09:00 MCH 30.2 pg (25.0-35.0) 05/16/18 09:00 MCHC 30.6 g/dl (31.0-37.0) L 05/16/18 09:00 RDW 14.4 % (11.5-14.5) 05/16/18 09:00 Plt Count 231 10^3/uL (120.0-450.0) 05/16/18 09:00 MPV 9.9 fl (7.0-11.0) 05/16/18 09:00 Gran % 76.7 % (50.0-68.0) H 05/16/18 09:00 Lymph % (Auto) 11.3 % (22.0-35.0) L 05/16/18 09:00 Jack % (Auto) 8.6 % (1.0-6.0) H 05/16/18 09:00 Eos % (Auto) 3.2 % (1.5-5.0) 05/16/18 09:00 Baso % (Auto) 0.2 % (0.0-3.0) 05/16/18 09:00 Gran # 8.04 (1.4-6.5) H 05/16/18 09:00 Lymph # (Auto) 1.2 (1.2-3.4) 05/16/18 09:00 Jack # (Auto) 0.9 (0.1-0.6) H 05/16/18 09:00 Eos # (Auto) 0.3 (0.0-0.7) 05/16/18 09:00 Baso # (Auto) 0.02 K/mm3 (0.0-2.0) 05/16/18 09:00 ESR 18 mm/hr (0.0-20.0) 05/10/18 06:00 Sodium 137 mmol/L (132-148) 05/16/18 09:00 Potassium 3.8 mmol/L (3.6-5.0) 05/16/18 09:00 Chloride 93 mmol/L (98-107) L 05/16/18 09:00 Carbon Dioxide 41 mmol/L (21-33) H 05/16/18 09:00 Anion Gap 7 (10-20) L 05/16/18 09:00 BUN 37 mg/dL (7-21) H 05/16/18 09:00 Creatinine 0.6 mg/dl (0.7-1.2) L 05/16/18 09:00 Est GFR ( Amer) > 60 05/16/18 09:00 Est GFR (Non-Af Amer) > 60 05/16/18 09:00 Random Glucose 75 mg/dL (70-110) 05/16/18 09:00 Calcium 8.7 mg/dL (8.4-10.5) 05/16/18 09:00 Phosphorus 3.0 mg/dL (2.5-4.5) 05/16/18 09:00 Magnesium 1.8 mg/dL (1.7-2.2) 05/16/18 09:00 Total Bilirubin 0.5 mg/dL (0.2-1.3) 05/16/18 09:00 AST 43 U/L (14-36) H 05/16/18 09:00 ALT 68 U/L (7-56) H 05/16/18 09:00 Alkaline Phosphatase 54 U/L (38-126) 05/16/18 09:00 C-Reactive Protein 8.80 mg/L (0.0-9.9) 05/10/18 06:00 Total Protein 5.8 g/dL (5.8-8.3) 05/16/18 09:00 Albumin 2.9 g/dL (3.0-4.8) L 05/16/18 09:00 Globulin 2.8 gm/dL 05/16/18 09:00 Albumin/Globulin Ratio 1.0 (1.1-1.8) L 05/16/18 09:00 Rheumatoid Factor IgG <5 U (<=6) 05/10/18 06:00 Rheumatoid Factor IgA <5 U (<=6) 05/10/18 06:00 Rheumatoid Factor IgM <5 U (<=6) 05/10/18 06:00 DEXTER Nuclear Membr Pat Negative (Negative) 05/10/18 06:00 Attending/Attestation - Attestation I have personally seen and examined this patient.: Yes I have fully participated in the care of the patient.: Yes I have reviewed all pertinent clinical information, including history, physical exam and plan: Yes Notes (Text): 05/16/18 14:58 82 year old female with past medical history of COPD who presented with right leg cellulitis and bilateral lower extremity edema. She was started on iv antibiotics and iv lasix with improvement of symptoms. She was seen by ID and podiatry. She was also found to have severe pulmonary hypertension and diastolic CHF on echocardiogram. She was seen by pulmonary who requested VQ scan which showed low probability for PE. Overall her symptoms her improved. She is discharged home to follow up at [facility]. Recommended outpatient PFTs and sleep study. Arrangements made for home O2. Dheeraj Sandoval MD Hospitalist.
[2018-05-16] MEDS: Budesonide 0.5 mg/2 ml Inhal Susp UD IH SCH (08:46)
[2018-05-16] MEDS: Acetylcysteine 20% Inhal Soln (4ml) INH SCH (08:46)
[2018-05-16] MEDS: Arformoterol 15 mcg/2 ml Inh Sol IH SCH (08:46)
--- NOTE | 2018-05-16 09:22 | CP.PCM.PN ---
Subjective - Date & Time of Evaluation Date of Evaluation: 05/16/18 Time of Evaluation: 09:20 - Subjective Subjective: Podiatry progress note for Dr. Ruiz 82 yo female seen and evaluated at bedside. Resting comfortably. No acute complaints overnight. States that she is doing well working with PT. Denies N/V/F/C/SOB/CP and has no other pedal complaints. Objective - Vital Signs/Intake and Output Vital Signs (last 24 hours): Temp Pulse Resp BP Pulse Ox 98.2 F 82 20 152/75 H 93 L 05/15/18 16:00 05/15/18 16:00 05/15/18 16:00 05/16/18 05:22 05/15/18 16:00 - Medications Medications: Current Medications Acetaminophen (Tylenol 325mg Tab) 650 mg PO Q6H PRN; Protocol PRN Reason: Pain, moderate (4-7) Acetylcysteine (Acetylcysteine 20%) 3 ml INH BIDRESP ARAM; Protocol Last Admin: 05/16/18 08:46 Dose: 3 ml Albuterol/Ipratropium (Duoneb 3 Mg/0.5 Mg (3 Ml) Ud) 3 ml IH [id number] PRN; Protocol PRN Reason: Shortness of Breath Last Admin: 05/15/18 20:48 Dose: 3 ml Arformoterol Tartrate (Brovana) 15 mcg IH [id number] ARAM; Protocol Last Admin: 05/16/18 08:46 Dose: 15 mcg Aspirin (Ecotrin) 81 mg PO 0800 ARAM; Protocol Last Admin: 05/15/18 08:35 Dose: 81 mg Betamethasone/Clotrimazole (Lotrisone) 1 gm TOP BID ARAM Last Admin: 05/15/18 17:28 Dose: Not Given Budesonide (Pulmicort Respules) 0.5 mg IH [id number] ARAM; Protocol Last Admin: 05/16/18 08:46 Dose: 0.5 mg Enoxaparin Sodium (Lovenox) 30 mg SC 0600 ARAM; Protocol Last Admin: 05/16/18 05:15 Dose: 30 mg Furosemide (Lasix) 20 mg IVP 0600 ARAM; Protocol Last Admin: 05/16/18 05:22 Dose: 20 mg Montelukast Sodium (Singulair) 10 mg PO HS ARAM; Protocol Last Admin: 05/15/18 21:31 Dose: 10 mg Prednisone (Prednisone Tab) 10 mg PO DAILY ARAM - Labs Labs: 05/14/18 09:30 05/14/18 09:30 - Constitutional Appears: Well, Non-toxic, No Acute Distress - Head Exam Head Exam: ATRAUMATIC, NORMOCEPHALIC - Extremities Exam Additional comments: B/L LE focused exam: Vasc: DP and PT pulses are faintly palpable 1/4; temp gradient warm to cool from proximal to distal b/l; cap refill <3 seconds to all digits; mild nonpitting edema present b/l R>L - improving since admission Neuro: Gross and protective sensations are intact b/l Derm: Open superficial wound present at the right posterior lower leg proximal to the ankle joint; base is granular; improved, cellulitis appears absent. No drainage, no malodor; no tunneling, streaking or tracking noted. MSK: Mild pain on palpation to the right lower leg wound; no other gross pathology noted b/l. Muscle power intact 5/5 to all groups b/l. - Neurological Exam Neurological Exam: Alert, Awake, Oriented x3 - Psychiatric Exam Psychiatric exam: Normal Affect, Normal Mood Assessment and Plan - Assessment and Plan (Free Text) Assessment: 82 yo female patient seen and evaluated for right lower leg wound and cellulitis Plan: Patient seen and evaluated at the bedside with Dr. Ruiz Charts and labs reviewed - afebrile, absent leukocytosis Right leg wound cx - Pseudomonas aeruginosa and serratia marcescens SIDNEY/PVR - possible right SFA, popliteal, and/or trifurcation disease Venous duplex - no DVT Legs cleansed with saline and lotion applied. Right leg dressed with adaptic, gauze and kerlix. Tubigrip applied to b/l legs Wound care order for visiting nurse: - Silvercell NONSTICK and bordered gauze MWF - Tubigrip applied b/l Contine abx as per medicine Podiatry will continue to follow up the patient while in house.
[2018-05-16 09:30] LABS: BASO # 0.02 K/mm3 (0.0-2.0); BASO % 0.2 % (0.0-3.0); EOS # 0.3 (0.0-0.7); EOS % 3.2 % (1.5-5.0); GRAN # 8.04 (1.4-6.5); GRAN % 76.7 % (50.0-68.0); HEMOGLOBIN 12.5 g/dL (12.0-16.0); LYMPH # 1.2 (1.2-3.4); LYMPH % 11.3 % (22.0-35.0); MEAN CELL VOLUME 98.6 fl (80.0-105.0); MEAN CORPUSCULAR HEMOGLOBIN 30.2 pg (25.0-35.0); MEAN CORPUSCULAR HGB CONC 30.6 g/dl (31.0-37.0); MEAN PLATELET VOLUME 9.9 fl (7.0-11.0); MONO # 0.9 (0.1-0.6); MONO % 8.6 % (1.0-6.0); RBC 4.14 10^6/uL (3.5-6.1); RED CELL DISTRIBUTION WIDTH 14.4 % (11.5-14.5); WHITE BLOOD COUNT 10.5 10^3/uL (4.5-11.0)
[2018-05-16 09:31] LABS: ALBUMIN 2.9 g/dL (3.0-4.8); ALT/SGPT 68 U/L (7-56); AST/SGOT 43 U/L (14-36); BLOOD UREA NITROGEN 37 mg/dL (7-21); CALCIUM 8.7 mg/dL (8.4-10.5); GFR NON-AFRICAN AMERICAN > 60
[2018-05-16] MEDS: Clotrimazole/Betamethasone Cream(15 gm) TOP SCH (09:47)
--- NOTE | 2018-05-16 12:09 | CP.PCM.PN ---
Subjective - Date & Time of Evaluation Date of Evaluation: 05/16/18 Time of Evaluation: 09:00 - Subjective Subjective: Afebrile, comfortable. Objective - Vital Signs/Intake and Output Vital Signs (last 24 hours): Temp Pulse Resp BP Pulse Ox 98.2 F 82 20 144/74 93 L 05/15/18 16:00 05/15/18 16:00 05/15/18 16:00 05/15/18 16:00 05/15/18 16:00 - Medications Medications: Current Medications Acetaminophen (Tylenol 325mg Tab) 650 mg PO Q6H PRN; Protocol PRN Reason: Pain, moderate (4-7) Acetylcysteine (Acetylcysteine 20%) 3 ml INH BIDRESP ARAM; Protocol Last Admin: 05/15/18 07:06 Dose: 3 ml Albuterol/Ipratropium (Duoneb 3 Mg/0.5 Mg (3 Ml) Ud) 3 ml IH [id number] PRN; Protocol PRN Reason: Shortness of Breath Arformoterol Tartrate (Brovana) 15 mcg IH [id number] ARAM; Protocol Last Admin: 05/15/18 07:06 Dose: 15 mcg Aspirin (Ecotrin) 81 mg PO 0800 ARAM; Protocol Last Admin: 05/15/18 08:35 Dose: 81 mg Betamethasone/Clotrimazole (Lotrisone) 1 gm TOP BID ARAM Last Admin: 05/15/18 17:28 Dose: Not Given Budesonide (Pulmicort Respules) 0.5 mg IH [id number] ARAM; Protocol Last Admin: 05/15/18 07:06 Dose: 0.5 mg Enoxaparin Sodium (Lovenox) 30 mg SC 0600 ARAM; Protocol Last Admin: 05/15/18 05:29 Dose: 30 mg Furosemide (Lasix) 20 mg IVP 0600 ARAM; Protocol Last Admin: 05/15/18 05:28 Dose: Not Given Montelukast Sodium (Singulair) 10 mg PO HS ARAM; Protocol Last Admin: 05/14/18 21:45 Dose: 10 mg Prednisone (Prednisone Tab) 10 mg PO DAILY ARAM - Labs Labs: 05/14/18 09:30 05/14/18 09:30 - Constitutional Appears: Chronically Ill - Head Exam Head Exam: NORMAL INSPECTION - Respiratory Exam Respiratory Exam: Decreased Breath Sounds - Cardiovascular Exam Cardiovascular Exam: +S1, +S2 - GI/Abdominal Exam GI & Abdominal Exam: Soft. absent: Tenderness - Extremities Exam Additional comments: right leg with dressings in place Assessment and Plan - Assessment and Plan (Free Text) Plan: Assessment probable right leg cellulitis with Pseudomonas in this patient with probable chronic venous stasis, S/P treatment with antibiotics COPD diastolic CHF Plan completed course of Vancomycin and Aztreonam - continue to monitor off antibiotics
== END 2018-05-16 14:25 | disposition home or self-care (01) | DRG 603 ==
LOC: TRCU 17:54
PROVIDERS: ADMIT Internal Medicine; ATTEND Internal Medicine
PROC: F07Z9FZ Gait Training/Functional Ambulation Treatment using Assistive, Adaptive, Supportive or Protective Equipment (ICD-10-PCS; principal; 2018-05-09)
PROC: F07M6ZZ Therapeutic Exercise Treatment of Musculoskeletal System - Whole Body (ICD-10-PCS; 2018-05-09)
PROC: F08Z1ZZ Dressing Techniques Treatment (ICD-10-PCS; 2018-05-10)
PROC: F08Z2ZZ Grooming/Personal Hygiene Treatment (ICD-10-PCS; 2018-05-10)
DX: L03.115 Cellulitis of right lower limb (principal); I31.3 Pericardial effusion (noninflammatory); I50.30 Unspecified diastolic (congestive) heart failure; J98.11 Atelectasis; B96.5 Pseudomonas (aeruginosa) (mallei) (pseudomallei) as the cause of diseases classified elsewhere; I11.0 Hypertensive heart disease with heart failure; I27.20 Pulmonary hypertension, unspecified; I87.2 Venous insufficiency (chronic) (peripheral); I87.8 Other specified disorders of veins; J31.0 Chronic rhinitis; J32.9 Chronic sinusitis, unspecified; J44.9 Chronic obstructive pulmonary disease, unspecified; L30.9 Dermatitis, unspecified; R09.02 Hypoxemia; Z79.899 Other long term (current) drug therapy; Z87.11 Personal history of peptic ulcer disease; Z87.891 Personal history of nicotine dependence; Z99.81 Dependence on supplemental oxygen

== ENCOUNTER 2018-05-18 13:18 | Emergency (ER) | payer MEDICARE, MEDICAID, OTHER ==
--- NOTE | 2018-05-18 13:46 | ED PDOC ---
Arrival/HPI - General Time Seen by Provider: 05/18/18 13:21 Historian: Patient - History of Present Illness Narrative History of Present Illness (Text): 05/18/18 13:44 82 year old female, with past medical history of COPD on home oxygen, Pulmonary Hypertension, and Cellulitis/Dermatitis, presents to the Emergency department for right leg wound dressing change today. Reportedly, patient was admitted to the hospital on 16 for cellulitis and later discharged to TCU and discharged from TCU yesterday. Patient presents for dressing change. She reports that her niece noticed the dressing was wet to her R leg so sent her to the ED. Upon questioning, patient is unclear about a home health aide and is unsure about following up with Dr. Kelsey. Patient denies any other complaints including fever, chills, nausea, vomiting, chest pain, or shortness of breath. 05/18/18 14:10 05/18/18 16:01 Time/Duration: Prior to Arrival Symptom Onset: Gradual Activities at Onset: Light Context: Home Past Medical History - Provider Review Nursing Documentation Reviewed: Yes - Infectious Disease Hx of Infectious Diseases: None - Cardiac Hx Cardiac Disorders: Yes Hx Hypertension: Yes - Pulmonary Hx Chronic Obstructive Pulmonary Disease (COPD): Yes - Neurological Hx Neurological Disorder: No - HEENT Hx HEENT Disorder: No - Renal Hx Renal Disorder: No - Endocrine/Metabolic Hx Endocrine Disorders: No - Hematological/Oncological Hx Blood Disorders: No - Integumentary Hx Dermatological Disorder: No - Musculoskeletal/Rheumatological Hx Falls: No - Gastrointestinal Hx Gastrointestinal Disorders: Yes (GASTRIC ULCER,CONSTIPATION) - Genitourinary/Gynecological Hx Genitourinary Disorders: No Hx Reproductive Disorders: No - Psychiatric Hx Psychophysiologic Disorder: No Hx Substance Use: No Family/Social History - Physician Review Nursing Documentation Reviewed: Yes Family/Social History: Unknown Family HX Smoking Status: Never Smoked Hx Alcohol Use: No Hx Substance Use: No Allergies/Home Meds Allergies/Adverse Reactions: Allergies Penicillins Allergy (Verified 05/08/18 18:06) RASH shellfish derived Allergy (Verified 05/08/18 18:06) RASH iv dye Allergy (Uncoded 05/08/18 18:06) RASH Review of Systems - Review of Systems Constitutional: absent: Fevers ENT: absent: Sore Throat Respiratory: absent: SOB, Cough Cardiovascular: absent: Chest Pain, GARCIA Gastrointestinal: absent: Abdominal Pain, Diarrhea, Nausea, Vomiting Genitourinary Female: absent: Dysuria, Urine Output Changes Musculoskeletal: absent: Back Pain, Neck Pain Skin: Other (right leg wound with dressing intact). absent: Rash Neurological: absent: Headache, Dizziness Psychiatric: absent: Anxiety Physical Exam Vital Signs Reviewed: Yes Vital Signs Temp Pulse Resp BP Pulse Ox 05/18/18 13:22 98.2 F 88 18 189/70 H 91 L Temperature: Afebrile Blood Pressure: Hypertensive Pulse: Regular Respiratory Rate: Normal Appearance: Positive for: Well-Appearing, Non-Toxic, Comfortable Pain Distress: None Mental Status: Positive for: Alert and Oriented X 3 - Systems Exam Head: Present: Atraumatic, Normocephalic Pupils: Present: PERRL Extroacular Muscles: Present: EOMI Conjunctiva: Present: Normal Mouth: Present: Moist Mucous Membranes Neck: Present: Normal Range of Motion Respiratory/Chest: Present: Clear to Auscultation, Good Air Exchange. No: Respiratory Distress, Accessory Muscle Use Cardiovascular: Present: Regular Rate and Rhythm, Normal S1, S2. No: Murmurs Abdomen: No: Tenderness, Distention, Peritoneal Signs Back: Present: Normal Inspection Upper Extremity: Present: Normal Inspection. No: Cyanosis, Edema Lower Extremity: Present: Normal Inspection, Other (RLE: no erythema, pinpoint area of skin break, no bleeding, scant swelling). No: Edema Neurological: Present: GCS=15, CN II-XII Intact, Speech Normal Skin: Present: Warm, Dry, Normal Color. No: Rashes Psychiatric: Present: Alert, Oriented x 3, Normal Insight, Normal Concentration Medical Decision Making ED Course and Treatment: 05/18/18 13:40 Impression: 82 year old female presents to the Emergency department or right leg wound dressing change. Discharged from TCU yesterday Plan: -- Dressing change -- Reassess and disposition Prior Visits: Notes and results from previous visits were reviewed. Progress Notes: 05/18/18 13:40 drafting layout worker paged regarding patient's home health aide. 05/18/18 14:09 Wound is clean dry. Dressing changed 05/18/18 15:14 Spoke to ALEKSANDRA Downey with TCU. Patient has "community housecalls" that was seeing patient at home today and also "[facility]" that was to follow-up tomorrow. 05/18/18 15:44 ALEKSANDRA Arzate at bedside. Confirms that patient has dual home services (home visiting physicians, visiting nurse services) and that they can arrange subacute placement from community if necessary. He spoke to family who is agreement with her going home. Patient agrees. Huey noticed that patient was discharged without nebulizer and requested that I prescribe. - Scribe Statement The provider has reviewed the documentation as recorded by the Scribe Maren Ibrahim. All medical record entries made by the Scribe were at my direction and personally dictated by me. I have reviewed the chart and agree that the record accurately reflects my personal performance of the history, physical exam, medical decision making, and the department course for this patient. I have also personally directed, reviewed, and agree with the discharge instructions and disposition. Disposition/Present on Arrival - Present on Arrival Any Indicators Present on Arrival: No History of DVT/PE: No History of Uncontrolled Diabetes: No Urinary Catheter: No History Surgical Site Infection Following: None - Disposition Have Diagnosis and Disposition been Completed?: Yes Diagnosis: Leg wound, right Disposition: HOME/ ROUTINE Disposition Time: 15:45 Patient Plan: Discharge Patient Problems: Current Active Problems Problem Status Onset Leg wound, right Acute Condition: GOOD Additional Instructions: Follow-up with home services that were previously arranged. Return to ED if condition worsens. Prescriptions: Nebulizer [Aeroeclipse II] 1 each MC ONCE 1 Days each
[2018-05-19 00:19] VITALS: BP 168/90; PULSE 81; RESP 18; TEMP 98.2; O2SAT 99; BMI 25.2
== END 2018-05-18 20:01 | disposition home or self-care (01) ==
LOC: ED 13:18
DX: S81.801D Unspecified open wound, right lower leg, subsequent encounter (principal); X58.XXXD Exposure to other specified factors, subsequent encounter

== ENCOUNTER 2018-06-14 19:53 | Inpatient (IN) | payer MEDICAID, MEDICARE, OTHER ==
[2018-06-14 19:54] VITALS: BMI 25.4
[2018-06-14] MEDS ORDERED: Albuterol-Ipratrop 3 mg / 0.5 (3 ml) UD IH STA (20:13)
[2018-06-14 20:58] LABS: B-TYPE NATRIURETIC PEPTIDE 7800 pg/mL (0-450); TROPONIN I 0.04 ng/mL
[2018-06-14 20:59] LABS: HEMOGLOBIN 12.2 g/dL (12.0-16.0); MEAN CELL VOLUME 98.5 fl (80.0-105.0); MEAN CORPUSCULAR HEMOGLOBIN 30.5 pg (25.0-35.0); MEAN PLATELET VOLUME 9.5 fl (7.0-11.0); RED CELL DISTRIBUTION WIDTH 15.4 % (11.5-14.5); WHITE BLOOD COUNT 7.8 10^3/uL (4.5-11.0)
[2018-06-14 21:00] LABS: ALB/GLOB RATIO 1.1 (1.1-1.8); ALBUMIN 3.5 g/dL (3.0-4.8); ALT/SGPT 51 U/L (7-56); AST/SGOT 43 U/L (14-36); BLOOD UREA NITROGEN 26 mg/dL (7-21); CALCIUM 8.8 mg/dL (8.4-10.5); GFR NON-AFRICAN AMERICAN > 60; INR 1.04; PARTIAL THROMBOPLASTIN TIME 27.8 Seconds (25.1-36.5); PROTHROMBIN TIME 11.9 SECONDS (9.4-12.5)
--- NOTE | 2018-06-14 21:35 | ED PDOC ---
Arrival/HPI - General Chief Complaint: Shortness Of Breath Time Seen by Provider: 06/14/18 20:04 Historian: Patient - History of Present Illness Narrative History of Present Illness (Text): 06/14/18 20:05 Zoraida He is an 82 year old female, whose past medical history includes COPD, pulmonary hypertension, diastolic CHF, and cellulitis, who presents to the Emergency department complaining of shortness over the past couple of days, worsening tonight. Patient states denies any history of chest pain, fever, chills, cough, vomiting, headache, dizziness, or any other complaints. Symptom Onset: Gradual Symptom Course: Unchanged Activities at Onset: Light Context: Home Past Medical History - Provider Review Nursing Documentation Reviewed: Yes - Infectious Disease Hx of Infectious Diseases: None - Reproductive Menopause: Yes - Cardiac Hx Cardiac Disorders: Yes Hx Hypertension: Yes - Pulmonary Hx Chronic Obstructive Pulmonary Disease (COPD): Yes - Neurological Hx Neurological Disorder: No - HEENT Hx HEENT Disorder: No - Renal Hx Renal Disorder: No - Endocrine/Metabolic Hx Endocrine Disorders: No - Hematological/Oncological Hx Blood Disorders: No - Integumentary Hx Dermatological Disorder: No - Musculoskeletal/Rheumatological Hx Falls: No - Gastrointestinal Hx Gastrointestinal Disorders: Yes (GASTRIC ULCER,CONSTIPATION) - Genitourinary/Gynecological Hx Genitourinary Disorders: No Hx Reproductive Disorders: No - Psychiatric Hx Psychophysiologic Disorder: No Hx Substance Use: No Family/Social History - Physician Review Nursing Documentation Reviewed: Yes Family/Social History: Unknown Family HX Smoking Status: Never Smoked Hx Alcohol Use: No Hx Substance Use: No Allergies/Home Meds Allergies/Adverse Reactions: Allergies Penicillins Allergy (Verified 05/08/18 18:06) RASH shellfish derived Allergy (Verified 05/08/18 18:06) RASH iv dye Allergy (Uncoded 05/08/18 18:06) RASH Review of Systems - Physician Review All systems were reviewed & negative as marked: Yes - Review of Systems Constitutional: Normal. absent: Fevers Eyes: Normal ENT: Normal Respiratory: SOB. absent: Cough Cardiovascular: Normal. absent: Chest Pain Gastrointestinal: Normal. absent: Abdominal Pain, Diarrhea, Nausea, Vomiting Genitourinary Female: Normal. absent: Dysuria, Frequency, Hematuria, Urine Output Changes Musculoskeletal: Normal. absent: Back Pain, Neck Pain Skin: Normal. absent: Rash Neurological: Normal. absent: Headache, Dizziness Endocrine: Normal Hemo/Lymphatic: Normal Psychiatric: Normal Physical Exam Vital Signs Reviewed: Yes Temperature: Afebrile Blood Pressure: Normal Pulse: Regular Respiratory Rate: Normal Appearance: Positive for: Well-Appearing, Non-Toxic, Comfortable Pain Distress: None Mental Status: Positive for: Alert and Oriented X 3 - Systems Exam Head: Present: Atraumatic, Normocephalic Pupils: Present: PERRL Extroacular Muscles: Present: EOMI Conjunctiva: Present: Normal Mouth: Present: Moist Mucous Membranes Neck: Present: Normal Range of Motion Respiratory/Chest: Present: Decreased Breath Sounds (Decreased breath sounds bilaterally), Rhonchi (Few scattered rhonchi bilaterally). No: Respiratory Distress, Accessory Muscle Use Cardiovascular: Present: Regular Rate and Rhythm, Normal S1, S2. No: Murmurs Abdomen: No: Tenderness, Distention, Peritoneal Signs Back: Present: Normal Inspection Upper Extremity: Present: Normal Inspection. No: Cyanosis, Edema Lower Extremity: Present: Edema (2+ pitting edema bilaterally), Erythema (Chronic erythematous changes, scaling of skin) Neurological: Present: GCS=15, CN II-XII Intact, Speech Normal Skin: Present: Warm, Dry, Normal Color. No: Rashes Psychiatric: Present: Alert, Oriented x 3, Normal Insight, Normal Concentration Medical Decision Making ED Course and Treatment: 06/14/18 20:05 Impression: 82 year old female complaining of shortness of breath for past few days, worsening tonight. Plan: -- EKG -- Chest X-ray -- Labs, cardiac enzymes, BNP -- Duoneb -- Reassess and disposition Prior Visits: Notes and results from previous visits were reviewed. Progress Notes: Reviewed EKG, NSR at 94 bpm. PACs. Anterior infarct. Non-specific ST/T wave changes. 06/14/18 21:45 Chest X-ray reviewed, shows increased pulmonary vascular markings consistent with CHF. 06/14/18 22:57 Case discussed with medical technologist microbiology and Dr. Esparza, who agree with plan. Pt will be admitted to Telemetry for CHF. - Lab Interpretations Lab Results: 06/14/18 20:25 06/14/18 20:25 Lab Results 06/14/18 20:25: WBC 7.8 D, RBC 4.00, Hgb 12.2, Hct 39.4, MCV 98.5, MCH 30.5, MCHC 31.0, RDW 15.4 H, Plt Count 283, MPV 9.5 06/14/18 20:25: Sodium 138, Potassium 4.5, Chloride 92 L, Carbon Dioxide 41 H, Anion Gap 5 L, BUN 26 H, Creatinine 0.8, Est GFR ( Amer) > 60, Est GFR (Non-Af Amer) > 60, Random Glucose 158 H, Calcium 8.8, Total Bilirubin 0.7, AST 43 H, ALT 51, Alkaline Phosphatase 72, Lactate Dehydrogenase 567, Total Creatine Kinase 35, Troponin I 0.04, NT-Pro-B Natriuret Pep 7800 H, Total Protein 6.7, Albumin 3.5, Globulin 3.2, Albumin/Globulin Ratio 1.1 06/14/18 20:25: PT 11.9, INR 1.04, APTT 27.8 I have reviewed the lab results: Yes - RAD Interpretation Radiology Orders: 06/14/18 20:12 CHEST PORTABLE [RAD] Stat Chlorobutadiene Scrubber Operator: ED Physician - EKG Interpretation Interpreted by ED Physician: Yes Type: 12 lead EKG - Medication Orders Current Medication Orders: Discontinued Medications Albuterol/Ipratropium (Duoneb 3 Mg/0.5 Mg (3 Ml) Ud) 3 ml IH ONCE STA Stop: 06/14/18 20:14 Last Admin: 06/14/18 20:35 Dose: 3 ml - Scribe Statement The provider has reviewed the documentation as recorded by the Tasha Crenshaw Provider Scribe Attestation: All medical record entries made by the Tasha were at my direction and personally dictated by me. I have reviewed the chart and agree that the record accurately reflects my personal performance of the history, physical exam, medical decision making, and the department course for this patient. I have also personally directed, reviewed, and agree with the discharge instructions and disposition. Disposition/Present on Arrival - Present on Arrival Any Indicators Present on Arrival: No History of DVT/PE: No History of Uncontrolled Diabetes: No Urinary Catheter: No History of Decub. Ulcer: No History Surgical Site Infection Following: None - Disposition Have Diagnosis and Disposition been Completed?: Yes Diagnosis: CHF (congestive heart failure) Disposition: HOSPITALIZED Disposition Time: 22:56 Patient Plan: Admission Patient Problems: Current Active Problems Problem Status Onset CHF (congestive heart failure) Acute Condition: STABLE Discharge Instructions (ExitCare): Heart Failure (ED) Forms: [employer] (Ukrainian)
--- NOTE | 2018-06-15 02:10 | CP.PCM.HP ---
<SanderPeyton - Last Filed: 06/15/18 01:52> History of Present Illness - History of Present Illness History of Present Illness: Peyton Boucher, PGY-1 Medicine H&P for Dr. sEparza: CC: SOB x2 days Pt is a 82 yo F with pmhx of COPD, Pulmonary HTN, Cellulitis/Dermatitis, HFpEF (EF: 65-70 on 05/17) who presents to the ED complaining of SOB x 2 days. She states that she had begun to notice that her legs were swelling and were getting heavy for the past two days. She also reports noting that she needed more pillows to help her fall asleep lately, she typically sleeps using 2 but now is using 3. She notes being compliant with all her medication but she is unsure of what she is eating because her neighbor comes over and cooks for her. She is currently denying fevers, chills, cough, chest pain, abd pain, n/v, c/d, dysuria or frequency. She does admit to SOB, Dyspnea on exertion, orthopnea, and leg swelling. Pmhx: COPD, Pulmonary HTN, Cellulitis/Dermatitis, HFpEF (EF: 65-70 on 05/17) Pshx: denies Meds: Asa, lasix, albuterol, brovana, singulair, pulmicort All: PCN, shellfish and IV Dye - All rash Social: Quit smoking 20 years ago, denies any etoh or illicit drug use Fam: Non-contributory Present on Admission - Present on Admission Any Indicators Present on Admission: No Review of Systems - Review of Systems Review of Systems: 12 point ROS reviewed and negative except noted in HPI above. Past Patient History - Infectious Disease Hx of Infectious Diseases: None - Past Social History Smoking Status: Never Smoked - CARDIAC Hx Cardiac Disorders: Yes Hx Hypertension: Yes - PULMONARY Hx Chronic Obstructive Pulmonary Disease (COPD): Yes - NEUROLOGICAL Hx Neurological Disorder: No - HEENT Hx HEENT Problems: No - RENAL Hx Chronic Kidney Disease: No - ENDOCRINE/METABOLIC Hx Endocrine Disorders: No - HEMATOLOGICAL/ONCOLOGICAL Hx Blood Disorders: No - INTEGUMENTARY Hx Dermatological Problems: No - MUSCULOSKELETAL/RHEUMATOLOGICAL Hx Falls: No - GASTROINTESTINAL Hx Gastrointestinal Disorders: Yes (GASTRIC ULCER,CONSTIPATION) - GENITOURINARY/GYNECOLOGICAL Hx Genitourinary Disorders: No Hx Reproductive Disorders: No - PSYCHIATRIC Hx Psychophysiologic Disorder: No Hx Substance Use: No - SURGICAL HISTORY Hx Surgeries: No Meds Allergies/Adverse Reactions: Allergies Allergy/AdvReac Type Severity Reaction Status Date / Time Penicillins Allergy RASH Verified 05/08/18 18:06 shellfish derived Allergy RASH Verified 05/08/18 18:06 iv dye Allergy RASH Uncoded 05/08/18 18:06 flu shot AdvReac FATIGUE Uncoded 06/15/18 13:56 pneumonia vaccine AdvReac FATIGUE Uncoded 06/15/18 13:56 Physical Exam - Constitutional Appears: Well, Non-toxic, Toxic - Head Exam Head Exam: ATRAUMATIC, NORMAL INSPECTION, NORMOCEPHALIC - Eye Exam Eye Exam: EOMI, Normal appearance, PERRL - Respiratory Exam Respiratory Exam: Decreased Breath Sounds, Rales (Present in RLL, ), NORMAL BREATHING PATTERN. absent: Accessory Muscle Use, Rhonchi, Wheezes, Respiratory Distress, Stridor - Cardiovascular Exam Cardiovascular Exam: RRR, +S1, +S2. absent: Gallop, Rubs - GI/Abdominal Exam GI & Abdominal Exam: Distended, Normal Bowel Sounds, Soft. absent: Firm, Guarding, Tenderness - Extremities Exam Extremities exam: Positive for: pedal edema (3+ b/l), pedal pulses present. Negative for: calf tenderness - Back Exam Back exam: NORMAL INSPECTION. absent: CVA tenderness (L), CVA tenderness (R) - Neurological Exam Neurological exam: Alert, Oriented x3 - Psychiatric Exam Psychiatric exam: Normal Affect, Normal Mood - Skin Skin Exam: Dry, Normal Color, Warm Results - Vital Signs Recent Vital Signs: Last Vital Signs Temp 97.9 F 06/14/18 21:56 Pulse 81 06/14/18 21:56 Resp 20 06/14/18 21:56 BP 185/92 H 06/14/18 22:42 Pulse Ox 95 06/14/18 21:56 - Labs Result Diagrams: 06/14/18 20:25 06/14/18 20:25 Labs: Laboratory Results - last 24 hr 06/14/18 06/14/18 06/14/18 20:25 20:25 20:25 WBC 7.8 D RBC 4.00 Hgb 12.2 Hct 39.4 MCV 98.5 MCH 30.5 MCHC 31.0 RDW 15.4 H Plt Count 283 MPV 9.5 PT 11.9 INR 1.04 APTT 27.8 Sodium 138 Potassium 4.5 Chloride 92 L Carbon Dioxide 41 H Anion Gap 5 L BUN 26 H Creatinine 0.8 Est GFR ( Amer) > 60 Est GFR (Non-Af Amer) > 60 Random Glucose 158 H Calcium 8.8 Total Bilirubin 0.7 AST 43 H ALT 51 Alkaline Phosphatase 72 Lactate Dehydrogenase 567 Total Creatine Kinase 35 Troponin I 0.04 NT-Pro-B Natriuret Pep 7800 H Total Protein 6.7 Albumin 3.5 Globulin 3.2 Albumin/Globulin Ratio 1.1 Assessment & Plan - Assessment and Plan (Free Text) Assessment: Pt is a 82 yo F with pmhx of COPD, Pulmonary HTN, Cellulitis/Dermatitis, HFpEF (EF: 65-70 on 05/17) who presents to the ED complaining of SOB x 2 days. CXR showed increase vascular markings. BNP was elevated. Plan: 1. CHF exacerbation: - Pt states she is compliant on medication - Cardio consult - Last echo was on 05/17 - EF 65-70% - CXR showed increased vascular congestion f/u official read - BNP elevated at 7800 - Lasix 40 IV BID - Serial EKG - Serial Trops - Daily wt - Strict I/Os - HHD low salt diet 2. COPD: - Cont home O2 @ 2L - Duonebs q4 PRN - Cont home pulmicort - Comt home singulair 3. PPX: GI: Protonix DVT: Lovenox Case seen and discussed with Dr. Isaias Boucher, PGY-1 <Matthias Esparza - Last Filed: 06/19/18 02:00> Results - Vital Signs Recent Vital Signs: Last Vital Signs Temp 98.0 F 06/17/18 00:01 Pulse 67 06/17/18 05:55 Resp 19 06/17/18 05:55 BP 140/70 06/17/18 17:19 Pulse Ox 96 06/16/18 17:13 - Labs Result Diagrams: 06/17/18 07:50 06/17/18 07:50 Attending/Attestation - Attestation I have personally seen and examined this patient.: Yes I have fully participated in the care of the patient.: Yes I have reviewed all pertinent clinical information: Yes
[2018-06-15] MEDS ORDERED: Albuterol-Ipratrop 3 mg / 0.5 (3 ml) UD IH PRN (02:25)
[2018-06-15 04:30] LABS: BASO # 0.05 K/mm3 (0.0-2.0); BASO % 0.6 % (0.0-3.0); EOS # 0.1 (0.0-0.7); GRAN # 6.09 (1.4-6.5); GRAN % 77.5 % (50.0-68.0); HEMOGLOBIN 11.3 g/dL (12.0-16.0); LYMPH # 0.7 (1.2-3.4); LYMPH % 9.2 % (22.0-35.0); MEAN CELL VOLUME 98.2 fl (80.0-105.0); MEAN CORPUSCULAR HEMOGLOBIN 29.3 pg (25.0-35.0); MEAN CORPUSCULAR HGB CONC 29.8 g/dl (31.0-37.0); MEAN PLATELET VOLUME 9.8 fl (7.0-11.0); MONO # 0.9 (0.1-0.6); MONO % 11.7 % (1.0-6.0); RBC 3.86 10^6/uL (3.5-6.1); RED CELL DISTRIBUTION WIDTH 15.7 % (11.5-14.5); WHITE BLOOD COUNT 7.9 10^3/uL (4.5-11.0)
[2018-06-15] MEDS: Pantoprazole 40 mg EC Tab PO SCH (06:55)
[2018-06-15 07:20] LABS: ALBUMIN 3.2 g/dL (3.0-4.8); ALT/SGPT 41 U/L (7-56); AST/SGOT 35 U/L (14-36); BLOOD UREA NITROGEN 24 mg/dL (7-21); CALCIUM 8.7 mg/dL (8.4-10.5); GFR NON-AFRICAN AMERICAN > 60
[2018-06-15] MEDS ORDERED: Arformoterol 15 mcg/2 ml Inh Sol IH SCH (08:00)
[2018-06-15] MEDS: Budesonide 0.5 mg/2 ml Inhal Susp UD IH SCH ×2 (08:26→20:01)
[2018-06-15] MEDS: Arformoterol 15 mcg/2 ml Inh Sol IH SCH ×2 (08:26→20:01)
--- NOTE | 2018-06-15 09:23 | RAD ---
Date of service: 06/14/2018 HISTORY: sob COMPARISON: Portable chest 05/05/2018. FINDINGS: LUNGS: Limited patchy density seen the right base versus crowding of bronchovascular markings. No left-sided potential airspace disease. PLEURA: Right pleural effusion obscures the right hemidiaphragm and blunts the right costophrenic sulcus with none on the left. CARDIOVASCULAR: Calcific atherosclerotic changes are seen related to the thoracic aorta. Cardiomegaly appears stable with increasing pulmonary vascular engorgement suggesting congestion. Heavy mitral annular calcification reiterated. Interstitial markings are also minimally increased supporting that diagnosis. OSSEOUS STRUCTURES: No significant abnormalities. VISUALIZED UPPER ABDOMEN: Normal. OTHER FINDINGS: None. IMPRESSION: Findings most suggestive of interval pulmonary vascular congestion though early infiltrate or atelectasis is not excluded the right base. Mild right pleural effusion present.
[2018-06-15] MEDS: Enoxaparin 40 mg Syringe SC SCH (09:32)
[2018-06-15] MEDS: POLYETHYLENE GLYCOL 3350 17 GM/Dose PACKET PO SCH (09:36)
--- NOTE | 2018-06-15 13:22 | CARD ---
APPROVED REPORT Date of service: 06/14/2018 EKG Measurement Heart [id number] <Conclusion> Sinus rhythm with premature atrial complexes Rightward axis Cannot rule out small or absent R waves V1-V3, may be due to lead placement or possible septal infarct age undetermined. Abnormal ECG
--- NOTE | 2018-06-15 17:45 | CON ---
DATE: 06/15/2018 CARDIOLOGY CONSULTATION HISTORY: The patient is an 82-year-old woman, who presents with 24 hours of shortness of breath. PAST MEDICAL HISTORY: The patient's past medical history includes COPD, severe pulmonary hypertension, diastolic CHF. She denies angina, denies chest pain. The patient does not have diabetes mellitus. No previous cardiac history. Her last echocardiogram that was done last month revealed good LV function with LVH, and severe pulmonary hypertension and mild aortic stenosis. SOCIAL HISTORY: The patient is a former smoker. REVIEW OF SYSTEMS: A 14-point review of systems is reviewed in detail. No angina. Positive dyspnea. Negative edema in the lower extremities. PHYSICAL EXAMINATION: VITAL SIGNS: Blood pressure 159/75, heart rate is in the 80s. NECK: Negative JVD. LUNGS: Decreased breath sounds bilaterally. HEART: Revealed S1, S2 with 2/6 systolic ejection murmur. EXTREMITIES: Without edema. EKG shows nonspecific ST-T changes. Hemoglobin is 11.3. Chemistries: BUN and creatinine are 24 and 0.8. Troponin of 0.04. ProBNP is greater than 7000. IMPRESSION: 1. Acute diastolic congestive heart failure. 2. Severe pulmonary hypertension. 3. Chronic obstructive pulmonary disease. 4. Dyspnea. PLAN: Given these findings, I agree with giving the patient Lasix for the next 24 hours. We will continue her pulmonary treatment. Shaheed Handy MD
--- NOTE | 2018-06-15 19:52 | US ---
HISTORY: Leg pain and swelling. Evaluate for DVT PHYSICIAN(S): Shaheed Burden MD. TECHNIQUE: Duplex sonography and color-flow Doppler with graded compression were used to evaluate the deep venous systems of both lower extremities. The exam is limited by edema. The tibial veins are not well seen FINDINGS: The visualized deep venous systems of both lower extremities are sonographically normal and compressible. Normal wave forms and augmentation are seen. There is no sonographic evidence for deep venous thrombosis in the visualized segments of both lower extremities. IMPRESSION: No sonographic evidence for deep venous thrombosis in the visualized segments of both lower extremities. Limited study.
[2018-06-16] MEDS: Pantoprazole 40 mg EC Tab PO SCH (05:55)
[2018-06-16 07:00] LABS: BASO # 0.05 K/mm3 (0.0-2.0); BASO % 0.7 % (0.0-3.0); EOS # 0.2 (0.0-0.7); EOS % 3.1 % (1.5-5.0); GRAN # 4.96 (1.4-6.5); GRAN % 72.6 % (50.0-68.0); LYMPH # 1.1 (1.2-3.4); LYMPH % 15.6 % (22.0-35.0); MEAN CELL VOLUME 99.2 fl (80.0-105.0); MEAN CORPUSCULAR HEMOGLOBIN 29.5 pg (25.0-35.0); MEAN CORPUSCULAR HGB CONC 29.7 g/dl (31.0-37.0); MEAN PLATELET VOLUME 9.5 fl (7.0-11.0); MONO # 0.6 (0.1-0.6); RBC 3.73 10^6/uL (3.5-6.1); RED CELL DISTRIBUTION WIDTH 15.8 % (11.5-14.5); WHITE BLOOD COUNT 6.8 10^3/uL (4.5-11.0)
[2018-06-16] MEDS: Budesonide 0.5 mg/2 ml Inhal Susp UD IH SCH ×2 (07:26→20:28)
[2018-06-16] MEDS: Arformoterol 15 mcg/2 ml Inh Sol IH SCH ×2 (07:27→20:28)
[2018-06-16 07:31] LABS: ALBUMIN 2.8 g/dL (3.0-4.8); ALT/SGPT 38 U/L (7-56); AST/SGOT 30 U/L (14-36); BLOOD UREA NITROGEN 20 mg/dL (7-21); CALCIUM 8.2 mg/dL (8.4-10.5); GFR NON-AFRICAN AMERICAN 60
[2018-06-16] MEDS ORDERED: Potassium Chloride 20 mEq ER Tab PO STA (07:35)
[2018-06-16] MEDS: POLYETHYLENE GLYCOL 3350 17 GM/Dose PACKET PO SCH (10:19)
[2018-06-16] MEDS: Enoxaparin 40 mg Syringe SC SCH (10:20)
[2018-06-16] MEDS: Magnesium Oxide 400 mg Tab UD PO SCH (11:52)
--- NOTE | 2018-06-16 11:56 | CP.PCM.APN ---
Subjective - Date & Time of Evaluation Date of Evaluation: 06/16/18 Time of Evaluation: 10:30 - Subjective Subjective: pt seenand examined at bedside pt reports feeling better since admission Review of Systems - Constitutional Constitutional: absent: As Per HPI, Anorexia, Chills, Daytime Sleepiness, Excessive Sweating, Fatigue, Fever, Frequent Falls, Headache, Increased Appetite, Lethargy, Malaise, Night Sweats, Snoring, Sleep Apnea, Weight Gain, Weight Loss, Weakness, Other - Respiratory Respiratory: Dyspnea on Exertion Objective - Vital Signs/Intake and Output Vital Signs (last 24 hours): Temp Pulse Resp BP Pulse Ox 97.5 F L 70 18 136/60 97 06/16/18 06:00 06/16/18 10:19 06/16/18 06:00 06/16/18 10:19 06/16/18 06:00 Intake and Output: 06/16/18 06/16/18 06:59 18:59 Intake Total 360 Output Total 200 Balance 160 - Medications Medications: Current Medications Albuterol/Ipratropium (Duoneb 3 Mg/0.5 Mg (3 Ml) Ud) 3 ml IH [id number] PRN PRN Reason: Shortness of Breath Arformoterol Tartrate (Brovana) 15 mcg IH [id number] [facility] Last Admin: 06/16/18 07:27 Dose: 15 mcg Aspirin (Ecotrin) 81 mg PO DAILY [facility] Last Admin: 06/16/18 10:19 Dose: 81 mg Budesonide (Pulmicort Respules) 0.5 mg IH [id number] [facility] Last Admin: 06/16/18 07:26 Dose: 0.5 mg Carvedilol (Coreg) 3.125 mg PO BID [facility] Last Admin: 06/16/18 10:19 Dose: 3.125 mg Enoxaparin Sodium (Lovenox) 40 mg SC DAILY [facility]; Protocol Last Admin: 06/16/18 10:20 Dose: 40 mg Furosemide (Lasix) 20 mg IVP 0600,1800 [facility] Magnesium Oxide (Mag-Ox) 400 mg PO DAILY [facility] Montelukast Sodium (Singulair) 10 mg PO HS [facility] Last Admin: 06/15/18 22:08 Dose: 10 mg Pantoprazole Sodium (Protonix Ec Tab) 40 mg PO 0600 [facility] Last Admin: 06/16/18 05:55 Dose: 40 mg Polyethylene Glycol (Miralax) 17 gm PO DAILY [facility] Last Admin: 06/16/18 10:19 Dose: 17 gm Potassium Chloride (K-Dur 20 Meq Er Tab) 20 meq PO BRK [facility] - Labs Labs: 06/16/18 06:00 06/16/18 06:00 PT 11.9 SECONDS (9.4-12.5) 06/14/18 20:25 INR 1.04 06/14/18 20:25 APTT 27.8 Seconds (25.1-36.5) 06/14/18 20:25 - Constitutional Appears: Non-toxic, No Acute Distress - Eye Exam Eye Exam: EOMI, Normal appearance Pupil Exam: NORMAL ACCOMODATION - ENT Exam ENT Exam: Mucous Membranes Moist - Neck Exam Neck Exam: Normal Inspection - Respiratory Exam Respiratory Exam: Decreased Breath Sounds, NORMAL BREATHING PATTERN - Cardiovascular Exam Cardiovascular Exam: +S1, +S2 - GI/Abdominal Exam GI & Abdominal Exam: Soft, Normal Bowel Sounds - Neurological Exam Neurological Exam: Alert, Awake - Skin Skin Exam: Dry, Intact, Normal Color Assessment and Plan - Assessment and Plan (Free Text) Plan: ITS Impressions Chest X-Ray 06/14/18 20:12 IMPRESSION: Findings most suggestive of interval pulmonary vascular congestion though early infiltrate or atelectasis is not excluded the right base. Mild right pleural effusion present. Extremity Ultrasound 06/15/18 11:22 IMPRESSION: No sonographic evidence for deep venous thrombosis in the visualized segments of both lower extremities. Limited study. 82 yr old female with pmh sig for copd, pul htn, diastolic chf, cellulitis lE admitted for worsening sob found to have acute diastolic chf exacerbation with bnp 7800 and cxr showing pul vasc congestion and questionable right infiltrate. pt is currently being managed by cardiology for acute chf. pt states she has home o2 already per discussion with medical team. physical therapist and IDT rounds, will order p.t and reassess disposition for ? ADDY when medically cleared for dc. BPCI/TIC - BPCIA/TIC Educated pt/family on BPCIA/CIR/Med to Bed Programs: Yes Flyers given, including [facility] Beneficiary letter: Yes Pt/family verbalized understanding & agreed to program: Yes
--- NOTE | 2018-06-16 12:44 | CP.PCM.PN ---
<Denis Victor - Last Filed: 06/16/18 12:45> Subjective - Date & Time of Evaluation Date of Evaluation: 06/16/18 Time of Evaluation: 12:40 - Subjective Subjective: Denis Victor DO PGY1 - Internal Medicine Die Attacher - Medicine Progress Note Patient was seen and examined at bedside this morning. She reports significant improvement of her shortness of breath. Denies any chest pain or cough. Denies any abdominal pain this morning. Tolerating diet well, moving bowels, and urinating well. Objective - Vital Signs/Intake and Output Vital Signs (last 24 hours): Temp Pulse Resp BP Pulse Ox 97.7 F 66 20 148/73 97 06/16/18 12:00 06/16/18 12:00 06/16/18 12:00 06/16/18 12:00 06/16/18 06:00 Intake and Output: 06/16/18 06/16/18 06:59 18:59 Intake Total 360 Output Total 200 Balance 160 - Medications Medications: Current Medications Albuterol/Ipratropium (Duoneb 3 Mg/0.5 Mg (3 Ml) Ud) 3 ml IH [id number] PRN PRN Reason: Shortness of Breath Arformoterol Tartrate (Brovana) 15 mcg IH [id number] [facility] Last Admin: 06/16/18 07:27 Dose: 15 mcg Aspirin (Ecotrin) 81 mg PO DAILY [facility] Last Admin: 06/16/18 10:19 Dose: 81 mg Budesonide (Pulmicort Respules) 0.5 mg IH [id number] [facility] Last Admin: 06/16/18 07:26 Dose: 0.5 mg Carvedilol (Coreg) 3.125 mg PO BID [facility] Last Admin: 06/16/18 10:19 Dose: 3.125 mg Enoxaparin Sodium (Lovenox) 40 mg SC DAILY [facility]; Protocol Last Admin: 06/16/18 10:20 Dose: 40 mg Furosemide (Lasix) 20 mg IVP 0600,1800 [facility] Magnesium Oxide (Mag-Ox) 400 mg PO DAILY [facility] Last Admin: 06/16/18 11:52 Dose: 400 mg Montelukast Sodium (Singulair) 10 mg PO HS [facility] Last Admin: 06/15/18 22:08 Dose: 10 mg Pantoprazole Sodium (Protonix Ec Tab) 40 mg PO 0600 [facility] Last Admin: 06/16/18 05:55 Dose: 40 mg Polyethylene Glycol (Miralax) 17 gm PO DAILY [facility] Last Admin: 06/16/18 10:19 Dose: 17 gm Potassium Chloride (K-Dur 20 Meq Er Tab) 20 meq PO BRK [facility] - Labs Labs: 06/16/18 06:00 06/16/18 06:00 PT 11.9 SECONDS (9.4-12.5) 06/14/18 20:25 INR 1.04 06/14/18 20:25 APTT 27.8 Seconds (25.1-36.5) 06/14/18 20:25 Physical Exam - Constitutional Appears: Well, Non-toxic, Toxic - Head Exam Head Exam: ATRAUMATIC, NORMAL INSPECTION, NORMOCEPHALIC - Eye Exam Eye Exam: EOMI, Normal appearance, PERRL - Respiratory Exam Respiratory Exam: Rales appreciated in RLL/LLL; No wheezes appreciated; remainder lung rico w/ appropriate air movement - Cardiovascular Exam Cardiovascular Exam: RRR, +S1, +S2. absent: Gallop, Rubs - GI/Abdominal Exam GI & Abdominal Exam: Distended, Normal Bowel Sounds, Soft. absent: Firm, Guarding, Tenderness - Extremities Exam Extremities exam: Positive for: pedal edema (3+ b/l), pedal pulses present. Negative for: calf tenderness - Back Exam Back exam: NORMAL INSPECTION. absent: CVA tenderness (L), CVA tenderness (R) - Neurological Exam Neurological exam: Alert, Oriented x3 - Psychiatric Exam Psychiatric exam: Normal Affect, Normal Mood - Skin Skin Exam: Dry, Normal Color, Warm Assessment and Plan - Assessment and Plan (Free Text) Assessment: 82F w/ pmhx COPD (On 2L O2 [place]), Pulm HTN, Cellulitis/Dermatitis, HFpEF (Most recent EF 65-70% 04/2018) presented to ED on 06/15 w/ SOB x2 days prior to admission. CXR upon admission showed increased vascular markings, BNP elevated to 7800; patient subsequently admitted for management of CHF exacerbation. Plan: 1. CHF exacerbation: - As per discussion w/ patient, it appears patient has been poorly complaint w/ follow up and medical management; she has poor insignt into her medical issues. - Patient diuresed w/ lasix; urinating appropriately w/ good output - Decrease lasix from 40 Q12 to 20 Q12 IVP - Serial EKG / Serial Troponins show no evidence of ischemia - Strict I/Os - HHD low salt diet - DC Tele - Cardiology Following appreciate recs 2. COPD: - Cont home O2 @ 2L - Duonebs q4 PRN - Cont home pulmicort - Comt home singulair 3. PPX: GI: Protonix DVT: Lovenox Upon discharge; Patient has been setup w/ Dr. Lo's group who will be able to provide in home visits to assess patient/ maintain follow up. Patient was seen, examined, and discussed w/ attending physician Dr. Valente Victor DO PGY1 - Internal Medicine Die Attacher - Medicine Progress Note <Madalyn Victor R - Last Filed: 06/16/18 16:29> Objective - Vital Signs/Intake and Output Vital Signs (last 24 hours): Temp Pulse Resp BP Pulse Ox 97.7 F 66 20 148/73 97 06/16/18 12:00 06/16/18 12:00 06/16/18 12:00 06/16/18 12:00 06/16/18 06:00 Intake and Output: 06/16/18 06/16/18 06:59 18:59 Intake Total 360 Output Total 200 Balance 160 - Medications Medications: Current Medications Albuterol/Ipratropium (Duoneb 3 Mg/0.5 Mg (3 Ml) Ud) 3 ml IH [id number] PRN PRN Reason: Shortness of Breath Last Admin: 06/16/18 14:52 Dose: 3 ml Arformoterol Tartrate (Brovana) 15 mcg IH [id number] [facility] Last Admin: 06/16/18 07:27 Dose: 15 mcg Aspirin (Ecotrin) 81 mg PO DAILY [facility] Last Admin: 06/16/18 10:19 Dose: 81 mg Budesonide (Pulmicort Respules) 0.5 mg IH [id number] [facility] Last Admin: 06/16/18 07:26 Dose: 0.5 mg Carvedilol (Coreg) 3.125 mg PO BID [facility] Last Admin: 06/16/18 10:19 Dose: 3.125 mg Enoxaparin Sodium (Lovenox) 40 mg SC DAILY [facility]; Protocol Last Admin: 06/16/18 10:20 Dose: 40 mg Furosemide (Lasix) 20 mg IVP 0600,1800 [facility] Magnesium Oxide (Mag-Ox) 400 mg PO DAILY [facility] Last Admin: 06/16/18 11:52 Dose: 400 mg Montelukast Sodium (Singulair) 10 mg PO HS [facility] Last Admin: 06/15/18 22:08 Dose: 10 mg Pantoprazole Sodium (Protonix Ec Tab) 40 mg PO 0600 [facility] Last Admin: 06/16/18 05:55 Dose: 40 mg Polyethylene Glycol (Miralax) 17 gm PO DAILY [facility] Last Admin: 06/16/18 10:19 Dose: 17 gm Potassium Chloride (K-Dur 20 Meq Er Tab) 20 meq PO BRK [facility] - Labs Labs: 06/16/18 06:00 06/16/18 06:00 PT 11.9 SECONDS (9.4-12.5) 06/14/18 20:25 INR 1.04 06/14/18 20:25 APTT 27.8 Seconds (25.1-36.5) 06/14/18 20:25 Attending/Attestation - Attestation I have personally seen and examined this patient.: Yes I have fully participated in the care of the patient.: Yes I have reviewed all pertinent clinical information, including history, physical exam and plan: Yes Notes (Text): Patient seen and examined by me with resident at 10:40 AM on 06/16/18. Case including HPI, physical exam, and assessment and plan discussed with resident. Agree with above with following additions/corrections. Patient is a 82-year-old female past medical history significant for PE, pulmonary hypertension, cellulitis/dermatitis, chronic respiratory failure s econdary to COPD on home oxygen, and diastolic CHF that presented to the emergency room with shortness of breath for 2 days. Patient states that he is feeling a "little better." States she is still feeling short of breath. She states she is getting short of breath walking from the bed to the bathroom. No chest pain or palpitations. No headaches or dizziness. No fevers or chills. No nausea, vomiting, or abdominal pain. No dysuria. Physical exam: General: Awake and alert sitting up in bed in no acute distress HEENT: Normocephalic, atraumatic. Extraocular muscles intact, pupils equal and reactive, no scleral icterus. Oropharynx is pink and moist. Neck is supple. Cardiovascular: Regular rhythm. Normal S1 and S2.No murmur, rubs, or gallops appreciated Pulmonary: Normal respiratory effort. Decreased breath sounds. No rhonchi, rales, or wheezing appreciated. Gastrointestinal: Soft, nondistended. Nontender. Positive bowel sounds all 4 quadrants. No guarding.Positive globular abdomen. Musculoskeletal: Moves all extremities. Positive lower extremity edema. No calf tenderness. Central nervous system: AAO x 3. Dermatologic: Skin warm and dry. Assessment and plan: Patient is a 82-year-old female past medical history significant for PE, pulmonary hypertension, cellulitis/dermatitis, chronic respiratory failure secondary to COPD on home oxygen, and diastolic CHF that presented to the emergency room with shortness of breath for 2 days. 1. Dyspnea. Secondary to acute on chronic diastolic CHF exacerbation and COPD. Severe pulmonary hypertension. Decrease Lasix to 20 mg IV every 12 hours. Continue Coreg 3.125 mg twice a day. Continue aspirin. Continue to monitor ins and outs. Heart etiology following, recommendations appreciated. Troponins within normal limits. BNP 7800. 2. Chronic respiratory failure secondary to COPD. On home oxygen. Continue O2 via nasal cannula. Placed on nebulizer treatments. Placed on Brovana, Pulmicort, and Singulair. 3. Hypertension. Continue Coreg. 4. Constipation. Continue Miralax. 5. GI/DVT prophylaxis. Protonix/Lovenox 6. Patient is a full code 7. Dispo: ADDY when clinically improved Case was discussed in detail with the patient regarding current diagnosis and treatment plan. All questions answered.
[2018-06-16 17:14] VITALS: O2SAT 96
[2018-06-17 02:41] VITALS: RESP 19; TEMP 98
[2018-06-17] MEDS: Pantoprazole 40 mg EC Tab PO SCH (05:39)
[2018-06-17 06:00] VITALS: PULSE 67
[2018-06-17] MEDS: Arformoterol 15 mcg/2 ml Inh Sol IH SCH (07:58)
[2018-06-17] MEDS: Budesonide 0.5 mg/2 ml Inhal Susp UD IH SCH (07:58)
[2018-06-17] MEDS ORDERED: Potassium Chloride 20 mEq ER Tab PO SCH (08:00)
[2018-06-17 08:12] LABS: BASO # 0.05 K/mm3 (0.0-2.0); BASO % 0.6 % (0.0-3.0); EOS # 0.2 (0.0-0.7); EOS % 2.9 % (1.5-5.0); GRAN # 6.04 (1.4-6.5); GRAN % 73.7 % (50.0-68.0); HEMOGLOBIN 10.9 g/dL (12.0-16.0); LYMPH # 0.9 (1.2-3.4); LYMPH % 11.4 % (22.0-35.0); MEAN CORPUSCULAR HEMOGLOBIN 29.2 pg (25.0-35.0); MEAN CORPUSCULAR HGB CONC 29.2 g/dl (31.0-37.0); MEAN PLATELET VOLUME 9.4 fl (7.0-11.0); MONO # 0.9 (0.1-0.6); MONO % 11.4 % (1.0-6.0); RBC 3.73 10^6/uL (3.5-6.1); RED CELL DISTRIBUTION WIDTH 15.6 % (11.5-14.5); WHITE BLOOD COUNT 8.2 10^3/uL (4.5-11.0)
[2018-06-17 08:35] LABS: ALBUMIN 2.8 g/dL (3.0-4.8); ALT/SGPT 40 U/L (7-56); AST/SGOT 26 U/L (14-36); BLOOD UREA NITROGEN 23 mg/dL (7-21); CALCIUM 8.3 mg/dL (8.4-10.5); GFR NON-AFRICAN AMERICAN 60
--- NOTE | 2018-06-17 11:37 | CP.PCM.PN ---
Subjective - Date & Time of Evaluation Date of Evaluation: 06/17/18 Time of Evaluation: 12:01 - Subjective Subjective: Denis Victor DO PGY1 -Internal Medicine Stacker And Sorter Operator - Medicine Progress note Patient was seen and examined this morning at bedside. No acute events reported overnight. Patient reports breathing has significantly improved since admission. Denies chest pain upon evaluation this morning, denies abdominal pain, n/v/d/c, she reports she is tolerating diet well. Patient also reports urinating w/o any difficulty or complaints. Objective - Vital Signs/Intake and Output Vital Signs (last 24 hours): Temp Pulse Resp BP Pulse Ox 98.0 F 67 19 130/58 L 96 06/17/18 00:01 06/17/18 05:55 06/17/18 05:55 06/17/18 05:55 06/16/18 17:13 Intake and Output: 06/17/18 06/17/18 06:59 18:59 Intake Total 1360 Output Total 1400 Balance -40 - Medications Medications: Current Medications Albuterol/Ipratropium (Duoneb 3 Mg/0.5 Mg (3 Ml) Ud) 3 ml IH [id number] PRN PRN Reason: Shortness of Breath Last Admin: 06/16/18 14:52 Dose: 3 ml Arformoterol Tartrate (Brovana) 15 mcg IH [id number] [facility] Last Admin: 06/17/18 07:58 Dose: 15 mcg Aspirin (Ecotrin) 81 mg PO DAILY [facility] Last Admin: 06/16/18 10:19 Dose: 81 mg Budesonide (Pulmicort Respules) 0.5 mg IH [id number] [facility] Last Admin: 06/17/18 07:58 Dose: 0.5 mg Carvedilol (Coreg) 3.125 mg PO BID [facility] Last Admin: 06/16/18 18:17 Dose: 3.125 mg Enoxaparin Sodium (Lovenox) 40 mg SC DAILY [facility]; Protocol Last Admin: 06/16/18 10:20 Dose: 40 mg Furosemide (Lasix) 20 mg IVP 0600,1800 [facility] Last Admin: 06/17/18 05:45 Dose: 20 mg Magnesium Oxide (Mag-Ox) 400 mg PO DAILY [facility] Last Admin: 06/16/18 11:52 Dose: 400 mg Montelukast Sodium (Singulair) 10 mg PO HS [facility] Last Admin: 06/16/18 21:33 Dose: 10 mg Pantoprazole Sodium (Protonix Ec Tab) 40 mg PO 0600 [facility] Last Admin: 06/17/18 05:39 Dose: 40 mg Polyethylene Glycol (Miralax) 17 gm PO DAILY [facility] Last Admin: 06/16/18 10:19 Dose: 17 gm Potassium Chloride (K-Dur 20 Meq Er Tab) 20 meq PO BRK [facility] Last Admin: 06/17/18 08:32 Dose: 20 meq - Labs Labs: 06/17/18 07:50 06/17/18 07:50 PT 11.9 SECONDS (9.4-12.5) 06/14/18 20:25 INR 1.04 06/14/18 20:25 APTT 27.8 Seconds (25.1-36.5) 06/14/18 20:25 Physical Exam - Constitutional Appears: Well, Non-toxic, Toxic - Head Exam Head Exam: ATRAUMATIC, NORMAL INSPECTION, NORMOCEPHALIC - Eye Exam Eye Exam: EOMI, Normal appearance, PERRL - Respiratory Exam Respiratory Exam: Bibasilar lung sounds diminished; mild rales heard throughout Bilateral Mid lung rico - Cardiovascular Exam Cardiovascular Exam: RRR, +S1, +S2. absent: Gallop, Rubs - GI/Abdominal Exam GI & Abdominal Exam: Distended, Normal Bowel Sounds, Soft. absent: Firm, Guarding, Tenderness - Extremities Exam Extremities exam: Positive for: pedal edema (3+ b/l), pedal pulses present. Negative for: calf tenderness - Back Exam Back exam: NORMAL INSPECTION. absent: CVA tenderness (L), CVA tenderness (R) - Neurological Exam Neurological exam: Alert, Oriented x3 - Psychiatric Exam Psychiatric exam: Normal Affect, Normal Mood - Skin Skin Exam: Dry, Normal Color, Warm Assessment and Plan - Assessment and Plan (Free Text) Assessment: 82F w/ pmhx COPD (On 2L O2 [place]), Pulm HTN, Cellulitis/Dermatitis, HFpEF (Most recent EF 65-70% 04/2018) presented to ED on 06/15 w/ SOB x2 days prior to admission. CXR upon admission showed increased vascular markings, BNP elevated to 7800; patient subsequently admitted for management of CHF exacerbation. Plan: CHF exacerbation: - As per discussion w/ patient, it appears patient has been poorly complaint w/ follow up and medical management; she has poor insignt into her medical issues. - Patient diuresed w/ lasix; urinating appropriately w/ good output - 1400ml out put over night; however 1360ml input - C/w Lasix 20mg Q12 IVP - Serial EKG / Serial Troponins show no evidence of ischemia - Strict I/Os - HHD low salt diet - DC Tele - Cardiology Following appreciate recs COPD w/ Chronic Respiratory Failure : - Cont home O2 @ 2L - Duonebs q4 PRN - Cont home pulmicort - Cont home singulair Chronic Constipation - C/w Miralax 17gm QD PPX: GI: Protonix DVT: Lovenox Upon discharge; Patient has been setup w/ Dr. Lo's group who will be able to provide in home visits to assess patient/ maintain follow up. Will discharge PT recommends ADDY upon discharge Patient was seen, examined, and discussed w/ attending physician Dr. Madalyn Victor DO PGY1 - Internal Medicine Stacker And Sorter Operator - Medicine Progress Note
[2018-06-17] MEDS ORDERED: Ammonium Lactate 12% Lotion (225 g) EXT SCH (11:45)
[2018-06-17] MEDS: POLYETHYLENE GLYCOL 3350 17 GM/Dose PACKET PO SCH (11:52)
[2018-06-17] MEDS: Enoxaparin 40 mg Syringe SC SCH (11:52)
[2018-06-17] MEDS: Magnesium Oxide 400 mg Tab UD PO SCH (11:52)
--- NOTE | 2018-06-17 13:20 | PN ---
DATE: 06/17/2018 CARDIOLOGY FOLLOWUP SUBJECTIVE: The patient reports breathing is much better. OBJECTIVE: VITAL SIGNS: Blood pressure is 130/58, heart rates in the 60s. NECK: Negative JVD. LUNGS: Decreased breath sounds. HEART: Reveal S1, S2. EXTREMITIES: Without change. LABORATORY DATA: Hemoglobin is 10.9, BUN and creatinine is 23 and 0.9. IMPRESSION: 1. Resolution of mild congestive heart failure. 2. Severe pulmonary hypertension. 3. Left ventricular hypertrophy. 4. Improvement of dyspnea. 5. Chronic obstructive pulmonary disease. Given these findings, the patient's respiratory status is better. We will change her IV Lasix to p.o. in the morning. Shaheed Handy MD
--- NOTE | 2018-06-17 14:45 | CP.PCM.DIS ---
Provider - Provider Date of Admission: 06/14/18 22:54 Attending physician: Madalyn Victor DO Primary care physician: NO PRIMARY CARE PROVIDER Consults: 06/15/18 01:06 Cardiology Consult Routine Comment: Consulting Provider: Shaheed Handy Consulting Physician: Shaheed Handy Reason for Consult: CHF exacerbation 06/15/18 11:24 Palliative Care Consult Routine Comment: Consulting Provider: Hina Sanchez Physician Instructions: Reason For Exam: adv directive 06/15/18 13:55 Social Work Referral Routine Comment: home bound unable to see doctor Physician Instructions: Reason For Exam: home bound- cant see doctor 06/15/18 14:38 Case Management Referral Routine Comment: Physician Instructions: Reason For Exam: Reason for Referral: Discharge Planning Inpatient APPEALS AND GENERALIST CLERK Core Measures Referral Routine Comment: chf Physician Instructions: Reason For Exam: eval Transition In Care/Readmission Reduction Routine Comment: chf Physician Instructions: Reason For Exam: eval 06/17/18 12:20 TCU [Evaluation for TRCU] Routine Comment: Physician Instructions: Reason For Exam: deconditioned Time Spent in preparation of Discharge (in minutes): 45 Diagnosis - Discharge Diagnosis (1) CHF (congestive heart failure) Status: Acute Priority: High (2) COPD (chronic obstructive pulmonary disease) Status: Chronic (3) Respiratory failure with hypoxia Status: Chronic Hospital Course - Lab Results Lab Results: Most Recent Lab Values WBC 8.2 10^3/uL (4.5-11.0) D 06/17/18 07:50 RBC 3.73 10^6/uL (3.5-6.1) 06/17/18 07:50 Hgb 10.9 g/dL (12.0-16.0) L 06/17/18 07:50 Hct 37.3 % (36.0-48.0) 06/17/18 07:50 MCV 100.0 fl (80.0-105.0) 06/17/18 07:50 MCH 29.2 pg (25.0-35.0) 06/17/18 07:50 MCHC 29.2 g/dl (31.0-37.0) L 06/17/18 07:50 RDW 15.6 % (11.5-14.5) H 06/17/18 07:50 Plt Count 248 10^3/uL (120.0-450.0) 06/17/18 07:50 MPV 9.4 fl (7.0-11.0) 06/17/18 07:50 Gran % 73.7 % (50.0-68.0) H 06/17/18 07:50 Lymph % (Auto) 11.4 % (22.0-35.0) L 06/17/18 07:50 [place] % (Auto) 11.4 % (1.0-6.0) H 06/17/18 07:50 Eos % (Auto) 2.9 % (1.5-5.0) 06/17/18 07:50 Baso % (Auto) 0.6 % (0.0-3.0) 06/17/18 07:50 Gran # 6.04 (1.4-6.5) 06/17/18 07:50 Lymph # (Auto) 0.9 (1.2-3.4) L 06/17/18 07:50 [place] # (Auto) 0.9 (0.1-0.6) H 06/17/18 07:50 Eos # (Auto) 0.2 (0.0-0.7) 06/17/18 07:50 Baso # (Auto) 0.05 K/mm3 (0.0-2.0) 06/17/18 07:50 PT 11.9 SECONDS (9.4-12.5) 06/14/18 20:25 INR 1.04 06/14/18 20:25 APTT 27.8 Seconds (25.1-36.5) 06/14/18 20:25 Sodium 137 mmol/L (132-148) 06/17/18 07:50 Potassium 4.2 mmol/L (3.6-5.0) 06/17/18 07:50 Chloride 88 mmol/L (98-107) L 06/17/18 07:50 Carbon Dioxide 47 mmol/L (21-33) H 06/17/18 07:50 Anion Gap 6 (10-20) L 06/17/18 07:50 BUN 23 mg/dL (7-21) H 06/17/18 07:50 Creatinine 0.9 mg/dl (0.7-1.2) 06/17/18 07:50 Est GFR ( Amer) > 60 06/17/18 07:50 Est GFR (Non-Af Amer) 60 06/17/18 07:50 Random Glucose 90 mg/dL (70-110) 06/17/18 07:50 Calcium 8.3 mg/dL (8.4-10.5) L 06/17/18 07:50 Phosphorus 3.6 mg/dL (2.5-4.5) 06/17/18 07:50 Magnesium 1.6 mg/dL (1.7-2.2) L 06/17/18 07:50 Total Bilirubin 0.4 mg/dL (0.2-1.3) 06/17/18 07:50 AST 26 U/L (14-36) 06/17/18 07:50 ALT 40 U/L (7-56) 06/17/18 07:50 Alkaline Phosphatase 60 U/L (38-126) 06/17/18 07:50 Lactate Dehydrogenase 567 U/L (333-699) 06/14/18 20:25 Total Creatine Kinase 35 U/L (35-230) 06/14/18 20:25 Troponin I 0.05 ng/mL D 06/15/18 09:00 NT-Pro-B Natriuret Pep 7800 pg/mL (0-450) H 06/14/18 20:25 Total Protein 5.5 g/dL (5.8-8.3) L 06/17/18 07:50 Albumin 2.8 g/dL (3.0-4.8) L 06/17/18 07:50 Globulin 2.7 gm/dL 06/17/18 07:50 Albumin/Globulin Ratio 1.0 (1.1-1.8) L 06/17/18 07:50 - Hospital Course Hospital Course: Denis Victor DO PGY1 - Internal Medicine Camera Control Operator - Medicine Discharge Summary: 82F w/ a PMH of COPD on 2L Home O2 NC, HFpEF (EF 65-70% on 04/2018), pulmonary hypertension, presented [place] [facility] [place] on [place] w/ SOB x2 days prior to admission. Patient also voiced complaints of increased lower extremity edema occurring over the same time period. She was previously admitted during 04/2018 during which she was also found to have severe pulmonary hypertension and diastolic CHF on echocardiogram. CXR upon admission showed increased vascular markings, BNP elevated to 7800. She reports that she had poor follow up and demonstrated poor insight into her disease processes; reported she had been without her home lasix for a while. She was subsequently admitted for management of CHF exacerbation. During admission, patient was diuresed w/ IV lasix and IO was monitored. Troponins/ EKG were unremarkable for new/ worsening ischemic changes, and cardiology was consulted. Cardiology recommended continued diuresis. During her course patient has been showing significant improvement on presentation. PT evaluation recommended ADDY for patient, she will be sent to TCU for further diuresis as well as rehabilitation for deconditioning. In terms of COPD; she was maintained on 2L O2 via NC and did not demonstrate any signs or symptoms of COPD exacerbation. Morning prior to discharge to TCU, patient was seen and examined this morning at bedside. No acute events reported overnight. Patient reports breathing has significantly improved since admission. Denies chest pain upon evaluation this morning, denies abdominal pain, n/v/d/c, she reports she is tolerating diet well. Patient also reports urinating w/o any difficulty or complaints. She is medically optimized for discharge to TCU at this time. Discharge Exam - Head Exam Head Exam: ATRAUMATIC, NORMAL INSPECTION, NORMOCEPHALIC - Eye Exam Eye Exam: EOMI, Normal appearance, PERRL Pupil Exam: PERRL - ENT Exam ENT Exam: Mucous Membranes Moist - Respiratory Exam Respiratory Exam: Rales Additional comments: Bibasilar lung sounds diminished; mild rales heard throughout Bilateral Mid lung rico - Cardiovascular Exam Cardiovascular Exam: +S1, +S2, Systolic Murmur (along LSB) - GI/Abdominal Exam GI & Abdominal Exam: Normal Bowel Sounds, Unremarkable - Extremities Exam Additional comments: 1+ Pitting Edema present in bilateral lower extremities; Chronic venostatic erythema noted in bilateral lower extremities as well. Distal Pulses present. - Neurological Exam Neurological exam: Alert, CN II-XII Intact, Oriented x3 - Psychiatric Exam Psychiatric exam: Normal Affect, Normal Mood - Skin Skin Exam: Dry, Intact, Normal Color, Warm Discharge Plan - Follow Up Plan Condition: STABLE Disposition: REHAB FACILITY/REHAB UNIT Instructions: Heart Healthy Diet, Quitting Smoking for Older Adults, Swelling, Cellulitis (Skin Infection), Adult (DC), Heart Failure (DC) Additional Instructions: Please continue medications as prescribed. You have been set up with a visiting nurse as well as the physician Dr. Lo ([facility]) for home visits. Your medications will be refilled by Dr. Lo ([facility]) who is your primary care doctor. Continue home oxygen. If your symptoms return, please go to the nearest emergency department. Referrals: Ashly Lo MD [Staff Provider] -
[2018-06-17 17:23] VITALS: BP 140/70
== END 2018-06-17 19:09 | DRG 292 ==
LOC: ED 19:53 → ERH 22:54 → 2RSO 06-15 10:54 → 5RNO 06-17 11:10
PROVIDERS: ADMIT Internal Medicine; ATTEND Hospitalist
DX: I11.0 Hypertensive heart disease with heart failure (principal); J96.11 Chronic respiratory failure with hypoxia; I50.33 Acute on chronic diastolic (congestive) heart failure; J44.9 Chronic obstructive pulmonary disease, unspecified; I35.0 Nonrheumatic aortic (valve) stenosis; I27.20 Pulmonary hypertension, unspecified; K59.09 Other constipation; Z99.81 Dependence on supplemental oxygen; Z87.891 Personal history of nicotine dependence; Z91.19 Patient's noncompliance with other medical treatment and regimen; Z88.0 Allergy status to penicillin; Z91.041 Radiographic dye allergy status

== ENCOUNTER 2018-06-17 19:12 | Inpatient (IN) | payer OTHER ==
[~2018-06-17 19:12] MED LIST: Arformoterol 15 mcg/2 ml Inh Sol IH SCH
[2018-06-17] MEDS: Budesonide 0.5 mg/2 ml Inhal Susp UD IH SCH ×2 (19:30→20:50)
[2018-06-17] MEDS: Arformoterol 15 mcg/2 ml Inh Sol IH SCH (20:50)
[2018-06-17 23:49] VITALS: BMI 25.7
[2018-06-18] MEDS ORDERED: Albuterol-Ipratrop 3 mg / 0.5 (3 ml) UD IH PRN (03:30)
[2018-06-18] MEDS: Pantoprazole 40 mg EC Tab PO SCH (05:21)
[2018-06-18] MEDS ORDERED: Enoxaparin 40 mg Syringe SC SCH (06:00)
[2018-06-18] MEDS: Arformoterol 15 mcg/2 ml Inh Sol IH SCH ×2 (07:13→20:45)
[2018-06-18] MEDS: Budesonide 0.5 mg/2 ml Inhal Susp UD IH SCH ×2 (07:14→20:45)
--- NOTE | 2018-06-18 08:07 | CP.PCM.HP ---
<Denis Victor - Last Filed: 06/18/18 13:41> History of Present Illness - History of Present Illness History of Present Illness: Denis Victor DO PGY1 - Internal Medicine Pricing/Signage Team Member - Medicine H&P for TCU Admission 82F w/ a PMH of COPD on 2L Home O2 NC, HFpEF (EF 65-70% on 04/2018), pulmonary h ypertension, [place] [facility] [place] w/ SOB x2 days prior to admission. Patient also voiced complaints of increased lower extremity edema occurring over the same time period. She was previously admitted during 04/2018 during which she was also found to have severe pulmonary hypertension and diastolic CHF on echocardiogram. CXR upon admission showed increased vascular markings, BNP elevated to 7800. She reports that she had poor follow up and demonstrated poor insight into her disease processes; reporteden without her ho she had beme lasix for a while, similarly reported to running out of some COPD meds as well. She was subsequently admitted for management of CHF exacerbation. During admission, patient was diuresed w/ IV lasix and IO was monitored. Troponins/ EKG were unremarkable for new/ worsening ischemic changes, and cardiology was consulted. Cardiology recommended continued diuresis. During her course patient has been showing significant improvement in regards to volume status and on presentation. PT evaluation recommended ADDY for patient, she is being sent to TCU for further diuresis as well as rehabilitation for deconditioning. In terms of COPD; she was maintained on 2L O2 via NC and did not demonstrate any signs or symptoms of COPD exacerbation. Patient was seen and evaluated this morning at bedside in TCU; she reported that overnight she became short of breath which resolved w/ duoneb treatment. She denies chest pain, abd pain, n/v/d/c, urinary complaints. Remainder 12 system ROS is negative at this time. As per most recent inpatient admission: Pmhx: COPD, Pulmonary HTN, Cellulitis/Dermatitis, HFpEF (EF: 65-70 on 05/17) Pshx: denies Meds: Asa, lasix, albuterol, brovana, singulair, pulmicort All: PCN, shellfish and IV Dye - All rash Social: Quit smoking 20 years ago, denies any etoh or illicit drug use Fam: Non-contributory Present on Admission - Present on Admission Any Indicators Present on Admission: No Review of Systems - Review of Systems All systems: reviewed and no additional remarkable complaints except Review of Systems: as per HPI Past Patient History - Infectious Disease Hx of Infectious Diseases: None - Past Social History Smoking Status: Never Smoked - CARDIAC Hx Cardiac Disorders: Yes Hx Congestive Heart Failure: Yes Hx Hypertension: Yes - PULMONARY Hx Chronic Obstructive Pulmonary Disease (COPD): Yes - NEUROLOGICAL Hx Neurological Disorder: No - HEENT Hx HEENT Problems: No - RENAL Hx Chronic Kidney Disease: No - ENDOCRINE/METABOLIC Hx Endocrine Disorders: No - HEMATOLOGICAL/ONCOLOGICAL Hx Blood Disorders: No - INTEGUMENTARY Hx Dermatological Problems: Yes Other/Comment: cellulitis/dermatitis ble flakey, dry, edmatous, reddened skin with pitting edema, dry toenails, slight redness to buttocks no openings - MUSCULOSKELETAL/RHEUMATOLOGICAL Hx Falls: No - GASTROINTESTINAL Hx Gastrointestinal Disorders: Yes Other/Comment: pt denies constipation - GENITOURINARY/GYNECOLOGICAL Hx Genitourinary Disorders: No Hx Reproductive Disorders: No - PSYCHIATRIC Hx Substance Use: No - SURGICAL HISTORY Hx Surgeries: No Meds Allergies/Adverse Reactions: Allergies Allergy/AdvReac Type Severity Reaction Status Date / Time Penicillins Allergy RASH Verified 05/08/18 18:06 shellfish derived Allergy RASH Verified 05/08/18 18:06 iv dye Allergy RASH Uncoded 05/08/18 18:06 flu shot AdvReac FATIGUE Uncoded 06/15/18 13:56 pneumonia vaccine AdvReac FATIGUE Uncoded 06/15/18 13:56 Physical Exam - Constitutional Appears: Well, Non-toxic, No Acute Distress - Head Exam Head Exam: ATRAUMATIC, NORMOCEPHALIC - Eye Exam Eye Exam: EOMI, Normal appearance, PERRL. absent: Scleral icterus - ENT Exam ENT Exam: Mucous Membranes Moist - Neck Exam Neck exam: Positive for: Normal Inspection - Respiratory Exam Additional comments: Diminished breath sounds throughout / poor air movement Mild rales in mid/ lower lung rico bilaterally. - Cardiovascular Exam Cardiovascular Exam: +S1, +S2, Systolic Murmur - GI/Abdominal Exam GI & Abdominal Exam: Normal Bowel Sounds, Soft. absent: Distended, Tenderness - Extremities Exam Additional comments: 1+ Pitting Edema present in bilateral lower extremities; Chronic venostatic erythema noted in bilateral lower extremities as well. Distal Pulses present. - Neurological Exam Neurological exam: Alert, CN II-XII Intact - Psychiatric Exam Psychiatric exam: Normal Affect, Normal Mood - Skin Skin Exam: Dry, Intact, Normal Color, Warm Results - Vital Signs Recent Vital Signs: Last Vital Signs Temp 98.0 F 06/17/18 23:21 Pulse 74 06/17/18 23:21 Resp 20 06/17/18 23:21 BP 168/78 H 06/18/18 05:21 Pulse Ox - Labs Labs: Laboratory Results - last 24 hr 06/18/18 06:30 Phosphorus 3.6 Magnesium 1.7 Assessment & Plan - Assessment and Plan (Free Text) Assessment: 82F w/ pmhx COPD (On 2L O2 NC), Pulm HTN, Cellulitis/Dermatitis, HFpEF (Most recent EF 65-70% 04/2018) presented to ED on 06/15 w/ SOB x2 days prior to admission. CXR upon admission showed increased vascular markings, BNP elevated to 7800; patient subsequently admitted for management of CHF exacerbation. T ransferred to TCU 06/18 for further diuresis as well as PT for treatment of deconditioning. Plan: CHF exacerbation 2/2 noncompliance: - As per discussion w/ patient, it appears patient has been poorly complaint w/ follow up and medical management; she has poor insignt into her medical issues. - Patient diuresed w/ lasix; urinating appropriately w/ good output - CXR 06/18 shows worsening of R sided pleural effusion - Will DC lasix 20 PO Q12; - Start Lasix 40 IVP Q12 - Serial EKG / Serial Troponins show no evidence of ischemia - C/w Strict I/Os - HHD low salt diet - fluid restricted 1250ml - C/w ASA - Cardiology Following appreciate recs COPD w/ Chronic Respiratory Failure : - Cont home O2 @ 2L - Increased Duonebs PRN from Q4 to Q2 - Started Duonebs ARAM Q6 - Cont home pulmicort - Cont home singulair Chronic Constipation - C/w Miralax 17gm QD Hx HTN - C/w Coreg 3.125 BID ; Hold for systolic <120; HR <60 HypoMag C/w MagOx 400 QD HypoKalemia C/w KChlor 20 QD PPX: GI: Protonix DVT: Lovenox Upon discharge; Patient has been setup w/ Dr. Lo's group who will be able to provide in home visits to assess patient/ maintain follow up. Will discharge Patient was seen, examined, and discussed w/ attending physician Dr. Madalyn Victor DO PGY1 - Internal Medicine Pricing/Signage Team Member - Medicine Progress Note - Date & Time Date: 06/18/18 Time: 13:55 <Madalyn Victor R - Last Filed: 06/19/18 18:44> Results - Vital Signs Recent Vital Signs: Last Vital Signs Temp 97.6 F 06/19/18 16:00 Pulse 65 06/19/18 18:12 Resp 20 06/19/18 16:00 BP 130/60 06/19/18 18:12 Pulse Ox 94 L 06/19/18 16:00 - Labs Result Diagrams: 06/19/18 06:00 06/19/18 06:00 Labs: Laboratory Results - last 24 hr 06/19/18 06/19/18 06/19/18 06:00 06:00 11:10 WBC 7.6 RBC 3.70 Hgb 10.9 L Hct 36.7 MCV 99.2 MCH 29.5 MCHC 29.7 L RDW 15.6 H Plt Count 228 MPV 9.4 Gran % 76.1 H Lymph % (Auto) 10.9 L [place] % (Auto) 9.9 H Eos % (Auto) 2.6 Baso % (Auto) 0.5 Gran # 5.77 Lymph # (Auto) 0.8 L [place] # (Auto) 0.8 H Eos # (Auto) 0.2 Baso # (Auto) 0.04 pCO2 pO2 HCO3 ABG pH ABG Total CO2 ABG O2 Saturation ABG O2 Content ABG Base Excess ABG Hemoglobin ABG Carboxyhemoglobin POC ABG HHb (Measured) ABG Methemoglobin ABG O2 Capacity Hgb O2 Saturation FiO2 Sodium 137 Potassium 3.7 Chloride 88 L Carbon Dioxide 45 H Anion Gap 8 L BUN 24 H Creatinine 0.8 Est GFR ( Amer) > 60 Est GFR (Non-Af Amer) > 60 POC Glucose (mg/dL) 138 H Random Glucose 84 Calcium 8.2 L Phosphorus 3.6 Magnesium 1.8 Total Bilirubin 0.5 AST 28 ALT 28 Alkaline Phosphatase 61 Total Protein 5.6 L Albumin 2.8 L Globulin 2.7 Albumin/Globulin Ratio 1.0 L 06/19/18 06/19/18 11:45 16:37 WBC RBC Hgb Hct MCV MCH MCHC RDW Plt Count MPV Gran % Lymph % (Auto) [place] % (Auto) Eos % (Auto) Baso % (Auto) Gran # Lymph # (Auto) [place] # (Auto) Eos # (Auto) Baso # (Auto) pCO2 68 H pO2 63.0 L HCO3 48.4 H* ABG pH 7.46 H ABG Total CO2 50.5 H ABG O2 Saturation 95.9 ABG O2 Content 15.1 ABG Base Excess 21.0 H ABG Hemoglobin 11.6 L ABG Carboxyhemoglobin 2.7 H POC ABG HHb (Measured) 4.0 ABG Methemoglobin 0.9 ABG O2 Capacity 15.7 L Hgb O2 Saturation 92.5 L FiO2 32.0 Sodium Potassium Chloride Carbon Dioxide Anion Gap BUN Creatinine Est GFR ( Amer) Est GFR (Non-Af Amer) POC Glucose (mg/dL) 97 Random Glucose Calcium Phosphorus Magnesium Total Bilirubin AST ALT Alkaline Phosphatase Total Protein Albumin Globulin Albumin/Globulin Ratio Attending/Attestation - Attestation I have personally seen and examined this patient.: Yes I have fully participated in the care of the patient.: Yes I have reviewed all pertinent clinical information: Yes Notes (Text): Patient seen and examined by me with resident at 10:35 AM on 06/18/18. Case including HPI, physical exam, and assessment and plan discussed with resident. Agree with above with following additions/corrections. Patient is a 82-year-old female past medical history significant for PE, pulmonary hypertension, cellulitis/dermatitis, chronic respiratory failure secondary to COPD on home oxygen, and diastolic CHF that presented to the emergency room with shortness of breath for 2 days on 06/14/18. Patient was treated for acute CFH exacerbation with IV lasix. Patient was also treated for chronic respiratory failure and COPD with nebulizer treatments, Brovana, and Pulmicort. Patient was followed by [facility] Dr. Handy. Patient was continued on O2 via nasal cannula. Patient was seen by physical therapy who recommended TCU. Patient was transferred to TCU 06/17/18 In TCU, patient states that she is feeling better. Still with some shortness of breath. Patient states her oxygen level dropped earlier and the nurse had in increase her oxygen. Patient denies chest pain or palpitations. No headaches or dizziness. No fevers or chills. No nausea, vomiting, or abdominal pain. No dysuria. Patient is having bowel movements. 12 Point review of systems reviewed by me. Please see above HPI, all other sy stems negative. Family history: Reviewed and noncontributory. Physical exam: General: Awake and alert sitting up in bed in no acute distress HEENT: Normocephalic, atraumatic. Extraocular muscles intact, pupils equal and reactive, no scleral icterus. Oropharynx is pink and moist. Neck is supple. Cardiovascular: Regular rhythm. Normal S1 and S2.No murmur, rubs, or gallops appreciated Pulmonary: Normal respiratory effort. Decreased breath sounds. No rhonchi, rales, or wheezing appreciated. Gastrointestinal: Soft, nondistended. Nontender. Positive bowel sounds all 4 quadrants. No guarding.Positive globular abdomen. Musculoskeletal: Moves all extremities. Positive lower extremity edema. No calf tenderness. Central nervous system: AAO x 3. Dermatologic: Skin warm and dry. Assessment and plan: Patient is a 82-year-old female past medical history significant for PE, pulmonary hypertension, cellulitis/dermatitis, chronic respiratory failure secondary to COPD on home oxygen, and diastolic CHF that presented to the emergency room with shortness of breath for 2 days. 1. Gait instability. Continue physical therapy as tolerated. Fall precautions. 2. Dyspnea. Secondary to acute on chronic diastolic CHF exacerbation and COPD with hypoxia and hypercapnia. Severe pulmonary hypertension. Chest xray today per radiologist showed increasing right pleural effusion. Lasix increased to 40 mg IV every 12 hours. Continue Coreg 3.125 mg twice a day. Continue aspirin. Continue to monitor ins and outs. Cardiology following, recommendations appreciated. Troponins within normal limits. BNP 7800. 3. Chronic respiratory failure secondary to COPD with hypoxia and hypercapnia. On home oxygen. Continue O2 via nasal cannula. Continue nebulizer treatments. Continue Brovana, Pulmicort, and Singulair. 4. Hypertension. Continue Coreg. 5. Constipation. Continue Miralax. Patient is having bowel movements 6. GI prophylaxis. Protonix 7. Patient is a full code Case was discussed in detail with the patient regarding current diagnosis and treatment plan. All questions answered.
[2018-06-18] MEDS: Potassium Chloride 20 mEq ER Tab PO SCH (08:28)
[2018-06-18] MEDS: POLYETHYLENE GLYCOL 3350 17 GM/Dose PACKET PO SCH (10:03)
[2018-06-18] MEDS: Magnesium Oxide 400 mg Tab UD PO SCH (10:03)
--- NOTE | 2018-06-18 11:30 | RAD ---
Date of service: 06/18/2018 HISTORY: dyspnea COMPARISON: 06/14/2018 FINDINGS: LUNGS: No active pulmonary disease. PLEURA: Right-sided pleural effusion CARDIOVASCULAR: Aortic calcification Mild cardiomegaly no pulmonary vascular congestion. OSSEOUS STRUCTURES: No significant abnormalities. VISUALIZED UPPER ABDOMEN: Normal. OTHER FINDINGS: None. IMPRESSION: Increasing right-sided pleural effusion
[2018-06-18] MEDS: Albuterol-Ipratrop 3 mg / 0.5 (3 ml) UD IH SCH ×2 (13:51→20:45)
[2018-06-18] MEDS: Albuterol-Ipratrop 3 mg / 0.5 (3 ml) UD IH PRN (13:51)
[2018-06-18] MEDS: Ammonium Lactate 12% Cream (140 g) TOP SCH (18:03)
[2018-06-19] MEDS: Pantoprazole 40 mg EC Tab PO SCH (05:34)
[2018-06-19 06:39] LABS: BASO # 0.04 K/mm3 (0.0-2.0); BASO % 0.5 % (0.0-3.0); EOS # 0.2 (0.0-0.7); EOS % 2.6 % (1.5-5.0); GRAN # 5.77 (1.4-6.5); GRAN % 76.1 % (50.0-68.0); HEMOGLOBIN 10.9 g/dL (12.0-16.0); LYMPH # 0.8 (1.2-3.4); LYMPH % 10.9 % (22.0-35.0); MEAN CELL VOLUME 99.2 fl (80.0-105.0); MEAN CORPUSCULAR HEMOGLOBIN 29.5 pg (25.0-35.0); MEAN CORPUSCULAR HGB CONC 29.7 g/dl (31.0-37.0); MEAN PLATELET VOLUME 9.4 fl (7.0-11.0); MONO # 0.8 (0.1-0.6); MONO % 9.9 % (1.0-6.0); RBC 3.7 10^6/uL (3.5-6.1); RED CELL DISTRIBUTION WIDTH 15.6 % (11.5-14.5); WHITE BLOOD COUNT 7.6 10^3/uL (4.5-11.0)
[2018-06-19 07:33] LABS: ALBUMIN 2.8 g/dL (3.0-4.8); ALT/SGPT 28 U/L (7-56); AST/SGOT 28 U/L (14-36); BLOOD UREA NITROGEN 24 mg/dL (7-21); CALCIUM 8.2 mg/dL (8.4-10.5); GFR NON-AFRICAN AMERICAN > 60
[2018-06-19] MEDS: Potassium Chloride 20 mEq ER Tab PO SCH (08:00)
[2018-06-19] MEDS: Albuterol-Ipratrop 3 mg / 0.5 (3 ml) UD IH SCH ×2 (08:04→13:59)
[2018-06-19] MEDS: Arformoterol 15 mcg/2 ml Inh Sol IH SCH ×2 (08:04→20:37)
[2018-06-19] MEDS: Budesonide 0.5 mg/2 ml Inhal Susp UD IH SCH ×2 (08:05→20:37)
[2018-06-19] MEDS: Magnesium Oxide 400 mg Tab UD PO SCH (10:12)
[2018-06-19] MEDS: Ammonium Lactate 12% Cream (140 g) TOP SCH (10:49)
[2018-06-19] MEDS: POLYETHYLENE GLYCOL 3350 17 GM/Dose PACKET PO SCH (10:53)
[2018-06-19 11:56] LABS: ARTERIAL BLOOD GAS HEMOGLOBIN 11.6 g/dL (11.7-17.4); ARTERIAL BLOOD GAS O2 CAPACITY 15.7 mL/dl (16-24); ARTERIAL BLOOD GAS O2 CONTENT 15.1 ML/dl (15-23); ARTERIAL BLOOD GAS O2 SAT 95.9 % (95-98); ARTERIAL BLOOD GAS PCO2 68 mm/Hg (35-45); ARTERIAL BLOOD GAS PH 7.46 (7.35-7.45); ARTERIAL BLOOD GAS TCO2 50.5 mmol.L (22-28)
[2018-06-19 12:04] LABS: ARTERIAL BLOOD GAS HCO3 48.4 mmol/L (21-28)
[2018-06-19] MEDS: Albuterol-Ipratrop 3 mg / 0.5 (3 ml) UD IH PRN (20:38)
--- NOTE | 2018-06-19 22:12 | CON ---
PULMONARY CONSULTATION DATE OF CONSULTATION: 06/19/2018 REFERRING PHYSICIAN: Dr. Victor REASON FOR CONSULTATION: Cardiomyopathy, pulmonary hypertension, may have sleep apnea syndrome. HISTORY OF PRESENT ILLNESS: This is an 82-year-old female, well known to me from previous admission, known to have a cardiac diastolic dysfunction with severe pulmonary hypertension, chronic obstructive lung disease, hypertension, recurrent lower extremity cellulitis. She was admitted to acute side of the hospital with right heart failure, presently in TCU for continued care. She is supposed to get attended sleep study as an outpatient, but ended up back in the hospital using CPAP over two hours or so these days, short of breath on exertion. No nausea, no vomiting, and no diarrhea. PAST MEDICAL HISTORY: Again, chronic obstructive lung disease, cardiac diastolic dysfunction, pulmonary hypertension, cellulitis of the lower extremities, suspected sleep apnea syndrome. FAMILY HISTORY: Significant for pulmonary disorders. SOCIAL HISTORY: Stopped smoking many years ago. Denies any alcohol use. MEDICATIONS: She is on Brovana 50 mcg inhaled twice a day, Coreg 3.125 mg twice a day, DuoNeb every 2 hours p.r.n. and every 6 hours [id number], Ecotrin 81 mg daily, potassium 20 mEq daily, Lasix 40 mg twice a day, Mag-Oxide 400 mg daily, MiraLax 17 g daily, prednisone 40 mg daily, Protonix 40 mg daily, Pulmicort inhaled twice a day, and Singulair 10 mg daily. ALLERGIES: PENICILLIN, SHELLFISH, IV CONTRAST. REVIEW OF SYSTEMS: No headache, no rhinitis. Gets short of breath with minimal exertion. No chest pain. No nausea. No vomiting. No diarrhea. She has recurrent leg ulcers. PHYSICAL EXAMINATION: GENERAL: No acute distress. VITAL SIGNS: Temperature is 98, heart rate is 65, respiratory rate is 20, blood pressure 130/61, pulse ox 34% on nasal cannula. HEENT: Small oral cavity. Crowded airway. NECK: Supple. No JVD. LUNGS: Have a few crackles at bases. HEART: S1 and S2. ABDOMEN: Soft, nontender. No organomegaly. EXTREMITIES: Some recurrent ulcers. NEUROLOGIC: Awake and Alert. Follows simple commands. LABORATORY DATA: Hemoglobin 10.9, hematocrit 36.7, WBC 7.6, platelets 228,000. Blood gases show pH 7.46, pCO2 of 68, O2 is 63. This is on nasal cannula. Chest x-ray done shows increased right-sided pleural effusion. IMPRESSION: Cardiac diastolic dysfunction with pulmonary hypertension, chronic obstructive lung disease, suspected sleep apnea syndrome, pleural effusion, recurrent lower extremity cellulitis. PLAN: I agree with present treatment. Continue diuretics. Encouraged BiPAP while sleeping. We will suggest placing a nasal mask on. Gastric prophylaxis, DVT prophylaxis. Continue therapy. Spoke to nursing staff. Thank you and we will follow with you. Ban Valentine MD
[2018-06-20] MEDS: Pantoprazole 40 mg EC Tab PO SCH (06:32)
[2018-06-20 07:08] LABS: HEMOGLOBIN 10.8 g/dL (12.0-16.0); MEAN CELL VOLUME 99.7 fl (80.0-105.0); MEAN CORPUSCULAR HEMOGLOBIN 29.5 pg (25.0-35.0); MEAN CORPUSCULAR HGB CONC 29.6 g/dl (31.0-37.0); MEAN PLATELET VOLUME 9.5 fl (7.0-11.0); RBC 3.66 10^6/uL (3.5-6.1); RED CELL DISTRIBUTION WIDTH 15.5 % (11.5-14.5); WHITE BLOOD COUNT 6.6 10^3/uL (4.5-11.0)
[2018-06-20] MEDS: Budesonide 0.5 mg/2 ml Inhal Susp UD IH SCH ×2 (07:18→19:26)
[2018-06-20] MEDS: Arformoterol 15 mcg/2 ml Inh Sol IH SCH ×2 (07:18→19:26)
[2018-06-20 07:20] LABS: ALBUMIN 2.8 g/dL (3.0-4.8); ALT/SGPT 32 U/L (7-56); AST/SGOT 31 U/L (14-36); BLOOD UREA NITROGEN 20 mg/dL (7-21); CALCIUM 8.4 mg/dL (8.4-10.5); GFR NON-AFRICAN AMERICAN > 60
[2018-06-20 07:52] LABS: ARTERIAL BLOOD GAS HEMOGLOBIN 10.3 g/dL (11.7-17.4); ARTERIAL BLOOD GAS O2 CONTENT 13.1 ML/dl (15-23); ARTERIAL BLOOD GAS O2 SAT 93.9 % (95-98); ARTERIAL BLOOD GAS PCO2 68 mm/Hg (35-45); ARTERIAL BLOOD GAS PH 7.43 (7.35-7.45); ARTERIAL BLOOD GAS TCO2 47.2 mmol.L (22-28)
[2018-06-20 08:00] LABS: ARTERIAL BLOOD GAS HCO3 45.1 mmol/L (21-28)
[2018-06-20] MEDS: Potassium Chloride 20 mEq ER Tab PO SCH (08:42)
[2018-06-20] MEDS: Ammonium Lactate 12% Cream (140 g) TOP SCH (10:26)
[2018-06-20] MEDS: POLYETHYLENE GLYCOL 3350 17 GM/Dose PACKET PO SCH ×2 (10:31→10:43)
[2018-06-20] MEDS: Magnesium Oxide 400 mg Tab UD PO SCH (10:31)
--- NOTE | 2018-06-20 11:20 | RAD ---
Date of service: 06/20/2018 HISTORY: Congestive heart failure and effusion COMPARISON: 04/18/2018 FINDINGS: LUNGS: Stable bilateral lower lobe infiltrates right greater than left. PLEURA: Stable bilateral pleural effusions. CARDIOVASCULAR: Atherosclerotic calcifications identified primarily aortic arch. Calcification within the mitral valve annulus and incidental finding. No significant interval change compared to the prior examination(s). OSSEOUS STRUCTURES: No significant abnormalities. VISUALIZED UPPER ABDOMEN: Normal. OTHER FINDINGS: None. IMPRESSION: Stable primarily bilateral lower lobe infiltrates inseparable from bilateral pleural effusions.
--- NOTE | 2018-06-20 15:28 | CP.PCM.PN ---
<Denis Victor - Last Filed: 06/20/18 15:24> Subjective - Date & Time of Evaluation Date of Evaluation: 06/20/18 Time of Evaluation: 15:24 - Subjective Subjective: Denis Victor DO PGY1 - Internal Medicine Mechanical Engineering Technician - Medicine Progress Note Patient was seen and examiend at bedside in TCU this morning. No acute events overnight. Patient reported she did not want to use her Bipap last night as it is uncomfortable. Patient was instructed on importance of bipap and encouraged to use it. Making good urine. Yesterday evening patient reported mildly worsening SOB; Reports no change in interim; Denies cp, abd pain, n/v/d/c, urinary complaints. Objective - Vital Signs/Intake and Output Vital Signs (last 24 hours): Temp Pulse Resp BP Pulse Ox 97.6 F 77 20 129/59 L 94 L 06/19/18 16:00 06/20/18 10:26 06/19/18 16:00 06/20/18 10:30 06/19/18 16:00 Intake and Output: 06/20/18 06/20/18 06:59 18:59 Intake Total 100 Output Total 1300 Balance -1200 - Medications Medications: Current Medications Albuterol/Ipratropium (Duoneb 3 Mg/0.5 Mg (3 Ml) Ud) 3 ml IH Q2H PRN; Protocol PRN Reason: SOB Last Admin: 06/19/18 20:38 Dose: 3 ml Arformoterol Tartrate (Brovana) 15 mcg IH [id number] [facility] Last Admin: 06/20/18 07:18 Dose: 15 mcg Aspirin (Ecotrin) 81 mg PO 0800 ARAM; Protocol Last Admin: 06/20/18 08:51 Dose: 81 mg Budesonide (Pulmicort Respules) 0.5 mg IH [id number] ARAM; Protocol Last Admin: 06/20/18 07:18 Dose: 0.5 mg Carvedilol (Coreg) 3.125 mg PO BID ARAM; Protocol Last Admin: 06/20/18 10:26 Dose: 3.125 mg Furosemide (Lasix) 40 mg IVP Q12 ARAM Last Admin: 06/20/18 10:30 Dose: 40 mg Lactic Acid (Lac-Hydrin 12% Cream (140 G)) 0 ea TOP DAILY ARAM; Protocol Last Admin: 06/20/18 10:26 Dose: 1 appful Magnesium Oxide (Mag-Ox) 400 mg PO DAILY ARAM; Protocol Last Admin: 06/20/18 10:31 Dose: 400 mg Montelukast Sodium (Singulair) 10 mg PO HS ARAM; Protocol Last Admin: 06/19/18 21:59 Dose: 10 mg Pantoprazole Sodium (Protonix Ec Tab) 40 mg PO 0600 ARAM; Protocol Last Admin: 06/20/18 06:32 Dose: 40 mg Polyethylene Glycol (Miralax) 17 gm PO DAILY ARAM; Protocol Last Admin: 06/20/18 10:31 Dose: 17 gm Potassium Chloride (K-Dur 20 Meq Er Tab) 20 meq PO 0800 ARAM; Protocol Last Admin: 06/20/18 08:42 Dose: 20 meq Prednisone (Prednisone Tab) 40 mg PO DAILY ARAM; Taper Stop: 06/27/18 11:29 Last Admin: 06/20/18 10:32 Dose: 40 mg - Labs Labs: 06/20/18 06:00 06/20/18 06:00 Physical Exam - Constitutional Appears: Well, Non-toxic, No Acute Distress - Head Exam Head Exam: ATRAUMATIC, NORMOCEPHALIC - Eye Exam Eye Exam: EOMI, Normal appearance, PERRL. absent: Scleral icterus - ENT Exam ENT Exam: Mucous Membranes Moist - Neck Exam Neck exam: Positive for: Normal Inspection - Respiratory Exam Additional comments: Continues to show diminished breath sounds/ poor air movement - Cardiovascular Exam Cardiovascular Exam: +S1, +S2, Systolic Murmur - GI/Abdominal Exam GI & Abdominal Exam: Normal Bowel Sounds, Soft. absent: Distended, Tenderness - Extremities Exam Additional comments: 1+ Pitting Edema present in bilateral lower extremities; Chronic venostatic erythema noted in bilateral lower extremities as well. Distal Pulses present. - Neurological Exam Neurological exam: Alert, CN II-XII Intact - Psychiatric Exam Psychiatric exam: Normal Affect, Normal Mood - Skin Skin Exam: Dry, Intact, Normal Color, Warm Assessment and Plan - Assessment and Plan (Free Text) Assessment: 82F w/ pmhx COPD (On 2L O2 NC), Pulm HTN, Cellulitis/Dermatitis, HFpEF (Most recent EF 65-70% 04/2018) presented to ED on 06/15 w/ SOB x2 days prior to admission. CXR upon admission showed increased vascular markings, BNP elevated to 7800; patient subsequently admitted for management of CHF exacerbation. Transferred to TCU 06/18 for further diuresis as well as PT for treatment of deconditioning. Plan: CHF exacerbation 2/2 noncompliance: - As per discussion w/ patient, it appears patient has been poorly complaint w/ follow up and medical management; she has poor insignt into her medical issues. - Patient diuresed w/ lasix; urinating appropriately w/ good output - 2200ml voided overnight - CXR 06/20 shows stable pleural effusion vs infiltrate compared to 06/18 - Will get CT Chest to r/o infiltrate - Will get procal - C/w Lasix 40 IVP Q12 - Serial EKG / Serial Troponins show no evidence of ischemia - C/w Strict I/Os - HHD low salt diet - fluid restricted 1250ml - C/w ASA - Cardiology Following appreciate recs - Pulmonology following, appreciate recs COPD w/ Chronic Respiratory Failure : - Cont home O2 @ 2L - Increased Duonebs PRN from Q4 to Q2 - Started Duonebs ARAM Q6 - Cont home pulmicort - Cont home singulair Chronic Constipation - C/w Miralax 17gm QD Hx HTN - C/w Coreg 3.125 BID ; Hold for systolic <120; HR <60 HypoMag C/w MagOx 400 QD HypoKalemia C/w KChlor 20 QD PPX: GI: Protonix DVT: Lovenox Upon discharge; Patient has been setup w/ Dr. Lo's group who will be able to provide in home visits to assess patient/ maintain follow up. Will discharge Patient was seen, examined, and discussed w/ attending physician Dr. Madalyn Victor DO PGY1 - Internal Medicine Mechanical Engineering Technician - Medicine Progress Note <Madalyn Victor R - Last Filed: 06/21/18 18:21> Objective - Vital Signs/Intake and Output Vital Signs (last 24 hours): Temp Pulse Resp BP Pulse Ox 98.1 F 68 18 145/67 90 L 06/21/18 16:00 06/21/18 17:18 06/21/18 16:00 06/21/18 17:18 06/21/18 16:00 Intake and Output: 06/21/18 06/21/18 06:59 18:59 Intake Total 112 Output Total 900 Balance -788 - Medications Medications: Current Medications Acetazolamide (Diamox 250 Mg Tab) 250 mg PO DAILY ARAM Last Admin: 06/21/18 14:47 Dose: 250 mg Albuterol/Ipratropium (Duoneb 3 Mg/0.5 Mg (3 Ml) Ud) 3 ml IH Q2H PRN; Protocol PRN Reason: SOB Last Admin: 06/20/18 19:27 Dose: 3 ml Arformoterol Tartrate (Brovana) 15 mcg IH [id number] ARAM Last Admin: 06/21/18 07:24 Dose: 15 mcg Aspirin (Ecotrin) 81 mg PO 0800 ARAM; Protocol Last Admin: 06/21/18 08:04 Dose: 81 mg Budesonide (Pulmicort Respules) 0.5 mg IH [id number] ARAM; Protocol Last Admin: 06/21/18 07:24 Dose: 0.5 mg Carvedilol (Coreg) 3.125 mg PO BID ARAM; Protocol Last Admin: 06/21/18 17:18 Dose: 3.125 mg Furosemide (Lasix) 40 mg IVP DAILY ARAM Last Admin: 06/21/18 09:22 Dose: 40 mg Lactic Acid (Lac-Hydrin 12% Cream (140 G)) 0 ea TOP DAILY ARAM; Protocol Last Admin: 06/21/18 09:18 Dose: 1 appful Magnesium Oxide (Mag-Ox) 400 mg PO DAILY ARAM; Protocol Last Admin: 06/21/18 09:18 Dose: 400 mg Montelukast Sodium (Singulair) 10 mg PO HS ARAM; Protocol Last Admin: 06/20/18 22:15 Dose: 10 mg Pantoprazole Sodium (Protonix Ec Tab) 40 mg PO 0600 ARAM; Protocol Last Admin: 06/21/18 05:00 Dose: 40 mg Polyethylene Glycol (Miralax) 17 gm PO DAILY ARAM; Protocol Last Admin: 06/21/18 09:19 Dose: Not Given Potassium Chloride (K-Dur 20 Meq Er Tab) 20 meq PO 0800 ARAM; Protocol Last Admin: 06/21/18 08:04 Dose: 20 meq Prednisone (Prednisone Tab) 30 mg PO DAILY ARAM; Taper Stop: 06/27/18 11:29 Last Admin: 06/21/18 09:19 Dose: 40 mg Sildenafil Citrate (Revatio) 20 mg PO TID ARAM Last Admin: 06/21/18 17:18 Dose: 20 mg - Labs Labs: 06/20/18 06:00 06/20/18 06:00 Attending/Attestation - Attestation I have personally seen and examined this patient.: Yes I have fully participated in the care of the patient.: Yes I have reviewed all pertinent clinical information, including history, physical exam and plan: Yes Notes (Text): Patient seen and examined by me with resident at 9:15 AM on 06/20/18. Case including HPI, physical exam, and assessment and plan discussed with resident. Agree with above with following additions/corrections. Patient is a 82-year-old female past medical history significant for PE, pulmonary hypertension, cellulitis/dermatitis, chronic respiratory failure secondary to COPD on home oxygen, and diastolic CHF that presented to the emergency room with shortness of breath for 2 days on 06/14/18. Patient was transferred to TCU 06/17/18 Patient states she is feeling better. She states she has intermittent shortness of breath. Patient states she has not been using the BIPAP machine because it hurts her nose. Importance of using machine discussed with patient. Patient understands and states she will use it. Patient denies chest pain or palpitations. No headaches or dizziness. No fevers or chills. No nausea, vomiting, or abdominal pain. No dysuria. Patient is having bowel movements. Physical exam: General: Awake and alert sitting up in bed in no acute distress HEENT: Normocephalic, atraumatic. Extraocular muscles intact, pupils equal and reactive, no scleral icterus. Oropharynx is pink and moist. Neck is supple. Cardiovascular: Regular rhythm. Normal S1 and S2.No murmur, rubs, or gallops appreciated Pulmonary: Normal respiratory effort. Decreased breath sounds. No rhonchi, ra les, or wheezing appreciated. Gastrointestinal: Soft, nondistended. Nontender. Positive bowel sounds all 4 quadrants. No guarding.Positive globular abdomen. Musculoskeletal: Moves all extremities. Positive lower extremity edema. No calf tenderness. Central nervous system: AAO x 3. Dermatologic: Skin warm and dry. Assessment and plan: Patient is a 82-year-old female past medical history sign ificant for PE, pulmonary hypertension, cellulitis/dermatitis, chronic respiratory failure secondary to COPD on home oxygen, and diastolic CHF that presented to the emergency room with shortness of breath for 2 days. Patient was transferred to TCU 06/17/18 1. Gait instability. Continue physical therapy as tolerated. Fall precautions. 2. Dyspnea. Secondary to acute on chronic diastolic CHF exacerbation and COPD with hypoxia and hypercapnia and severe pulmonary hypertension. Chest xray today per radiologist showed stable primarily bilateral lower lobe infiltrates inseparable from bilateral pleural effusions. Follow up chest CT. Continue Lasix 40 mg IV daily. Continue Coreg 3.125 mg twice a day. Continue aspirin. Revatio and acetazolamide started by pulmonary. Continue BIPAP as needed. Continue to monitor ins and outs. Cardiology following, recommendations appreciated. Troponins within normal limits. BNP 7800. 3. Chronic respiratory failure secondary to COPD with hypoxia and hypercapnia. On home oxygen. Continue O2 via nasal cannula. Continue nebulizer treatments. Continue Brovana, Pulmicort, and Singulair. Continue BIPAP as needed. Continue prednisone taper. 4. Hypertension. Continue Coreg and Lasix 5. Constipation. Continue Miralax. Patient is having bowel movements 6. GI prophylaxis. Protonix 7. Patient is a full code Case was discussed in detail with the patient regarding current diagnosis and treatment plan. All questions answered.
--- NOTE | 2018-06-20 18:00 | CT ---
Date of service: 06/20/2018 PROCEDURE: CT Chest without contrast HISTORY: RLL infiltrate vs Effusion COMPARISON: 05/08/2018 CT thorax TECHNIQUE: Contiguous axial images were obtained through the chest without intravenous contrast enhancement. Sagittal and coronal reconstructions were performed. Radiation dose: Total exam DLP = 321.37 mGy-cm. This CT exam was performed using one or more of the following dose reduction techniques: Automated exposure control, adjustment of the mA and/or kV according to patient size, and/or use of iterative reconstruction technique. FINDINGS: LUNGS: Stable compressive atelectasis, lower lobe consolidative changes. Evidence of mild centrilobular emphysema. Findings suggestive mild lower airway disease primarily parabronchial thickening. MEDIASTINUM: Unremarkable thoracic aorta. No aneurysm. Cardiomegaly without manifestations of CHF. Calcification within the mitral valve annulus. Dilated main pulmonary artery and central branches consistent with pulmonary arterial hypertension. No lymphadenopathy. No aortic atherosclerotic calcification. PLEURA: Stable bilateral pleural effusions. BONES: No fracture. No destructive lesion. UPPER ABDOMEN: Grossly unremarkable. OTHER FINDINGS: None. IMPRESSION: Persistent bilateral pleural effusions which are stable. Compressive atelectasis both lower lobes which are stable. Additional benign and incidental findings described above.
[2018-06-20] MEDS: Sildenafil 20 MG TAB PO SCH (19:01)
[2018-06-20] MEDS: Albuterol-Ipratrop 3 mg / 0.5 (3 ml) UD IH PRN (19:27)
--- NOTE | 2018-06-20 21:19 | PN ---
DATE: 06/20/2018 PULMONARY PROGRESS NOTE REFERRING PHYSICIAN: Dr. Victor. SUBJECTIVE: She is out of bed to chair. Night was unremarkable. Few hours used BiPAP, felt better with a nasal mask, though still short of breath, minimal exertion. No chest pain. No nausea. No vomiting. No diarrhea. Has some leg swelling. PHYSICAL EXAMINATION: GENERAL: No acute distress. VITAL SIGNS: Temperature is 98, heart rate 77, respiratory rate is 20, blood pressure 129/59, pulse ox 94% on nasal cannula. HEENT: Small oral cavity. NECK: Supple. No JVD. CARDIOPULMONARY: S1 and S2. LUNGS: Have a few scattered rhonchi. ABDOMEN: Soft, nontender. No organomegaly. EXTREMITIES: No edema. NEUROLOGICAL: Awake and follows simple commands. LABORATORY DATA: Shows hemoglobin 10.8, hematocrit 36.5, WBC 6.6, platelet is 221. Blood gases show pH of 7.43, pCO2 is 68, O2 is 56. Sodium 136, potassium 2.7, chloride 86, bicarbonate 48, BUN 20, creatinine 0.7, calcium 8.4, phosphorus 3.5, magnesium 1.8, AST 31, ALT 32, alk phos is 57. MEDICATIONS: She is on Brovana inhaled twice a day, Coreg 3.125 mg twice a day, DuoNeb every 2 hours. p.r.n., Ecotrin 81 mg daily, potassium 20 mEq daily, Lasix 40 mg twice a day, magnesium oxide 400 mg daily, MiraLax 17 g daily, prednisone 40 mg daily, Protonix 40 mg daily, Pulmicort inhaled twice a day, Singulair 10 mg daily. ASSESSMENT AND PLAN: Severe pulmonary hypertension, cardiac diastolic dysfunction, chronic lung disease, suspected sleep apnea syndrome, pleural effusion, lower extremity cellulitis. We will continue BiPAP while sleeping with the nasal mask. Continue p.o. and inhaled bronchodilator. May decrease diuretics to Lasix 40 mg daily and add . Continue therapy. We will follow with you. Ban Valentine MD
--- NOTE | 2018-06-20 23:39 | CON ---
DATE: 06/20/2018 CARDIOLOGY CONSULTATION REASON FOR CONSULTATION: Shortness of breath. HISTORY OF PRESENT ILLNESS: The patient is an 82-year-old female who has history of advanced chronic obstructive lung disease, history of diastolic heart failure, history of severe pulmonary hypertension, and right-sided failure, was admitted to TCU. The patient denies chest pain at this time. SOCIAL HISTORY: The patient is nonsmoker. MEDICATIONS: Brovana 50 mcg inhalation every 12 hours, Coreg 3.125 twice a day, aspirin 81 mg once a day, K-Dur 20 mEq once a day, albuterol inhaler every 2 hours p.r.n., Lasix 40 mg intravenous twice a day, magnesium oxide 400 mg daily, Protonix 40 mg p.o. once a day, and Singulair 10 mg once a day. PAST MEDICAL HISTORY: Chronic obstructive lung disease, diastolic heart failure, pulmonary hypertension, lower extremity cellulitis, questionable sleep apnea. FAMILY HISTORY: Noncontributory. PHYSICAL EXAMINATION GENERAL: The patient is an elderly female, who does not appear to be in acute distress. VITAL SIGNS: Blood pressure 129/59, heart rate 77, temperature 97.6, and respirations 20. HEENT: Normocephalic. CHEST: Absent breath sounds on the right base. HEART: S1 and S2 regular. EXTREMITIES: 1+ pitting edema. LABORATORY DATA: Hemoglobin and hematocrit 10.8 and 36.5, white count and platelets counts are within normal limits. SMA-7: Sodium 136, potassium 3.7, chloride 86, CO2 of 48, glucose , BUN 20, creatinine 0.7. Today's chest x-ray revealed cardiomegaly and right lower lobe infiltrate versus consolidation with bilateral pleural effusion. EKG on 06/15/2018 reveals sinus rhythm with APCs, rightward axis, absent R waves in V1 and V3 are consistent with COPD. Echocardiographic study performed on 05/06/2018 revealed normal ejection fraction, [id number] concentric LVH, dilated right ventricle with [id number] ventricular systolic function, aortic sclerosis versus mild aortic stenosis, severe tricuspid insufficiency, and severe pulmonary hypertension. ASSESSMENT: 1. Diastolic heart failure. 2. Chronic obstructive lung disease. 3. Consider right lower lobe pneumonia. 4. Bilateral pleural effusion. RECOMMENDATIONS: Continue Coreg 3.125 mg twice a day; however, hold Coreg if the patient becomes actively wheezing at any point. Continue aspirin 81 mg once a day, K-Dur 20 mEq once a day, Lasix intravenous 40 mg twice a day, prednisone 40 mg once a day, and Protonix 40 mg p.o. once a day. Case was discussed with the medical billing coordinator and any decision for lung CT scan will be left to Dr. Valentine, and no further cardiac workup is indicated at this time. Michael Parr MD
[2018-06-21] MEDS: Pantoprazole 40 mg EC Tab PO SCH (05:00)
[2018-06-21] MEDS: Budesonide 0.5 mg/2 ml Inhal Susp UD IH SCH ×2 (07:24→20:05)
[2018-06-21] MEDS: Arformoterol 15 mcg/2 ml Inh Sol IH SCH ×2 (07:24→20:05)
[2018-06-21] MEDS: Potassium Chloride 20 mEq ER Tab PO SCH (08:04)
[2018-06-21] MEDS: Magnesium Oxide 400 mg Tab UD PO SCH (09:18)
[2018-06-21] MEDS: Ammonium Lactate 12% Cream (140 g) TOP SCH (09:18)
[2018-06-21] MEDS: POLYETHYLENE GLYCOL 3350 17 GM/Dose PACKET PO SCH (09:19)
[2018-06-21] MEDS: Sildenafil 20 MG TAB PO SCH ×3 (09:19→17:18)
--- NOTE | 2018-06-21 18:15 | PN ---
DATE: 06/21/2018 PULMONARY PROGRESS NOTE REFERRING PHYSICIAN: Dr. Victor. SUBJECTIVE: The patient is sitting up in armchair in room, no acute distress. No overnight events reported. The patient reports she did not use BiPAP machine last night. Reports slight improvement in shortness of breath with exertion. Denies cough. No headache, rhinitis, chest pain, abdominal pain, nausea, vomiting, diarrhea, leg pain reported. OBJECTIVE: VITAL SIGNS: Blood pressure 114/50, pulse 74, temperature 98.1, oxygen saturation 100% nasal cannula. GENERAL: No acute distress. HEENT: Small oral cavity. Moist mucous membranes. NECK: Supple. No JVD.. CARDIOVASCULAR: S1, S2 audible. LUNGS: Few scattered rhonchi. ABDOMEN: Soft, nontender. No organomegaly. No distention. EXTREMITIES: No bilateral lower extremity edema. NEUROLOGIC: Awake, alert, verbal, follows commands. LABORATORY DATA: Reviewed. No new labs since yesterday. DIAGNOSTIC DATA: Chest without contrast CT showed persistent bilateral pleural effusions, which are stable; compressive atelectasis, both lower lobes, which are stable. MEDICATIONS: Reviewed. Diamox 250 mg p.o. daily, DuoNeb 3 mL inhalation every 2 hours p.r.n., Brovana 15 mcg every 12 hours, aspirin 81 mg daily, Pulmicort 0.5 mg inhalation every 12 hours, Coreg 3.125 mg twice a day, Lasix 40 mg IV push daily, lactic acid topically affected area daily, magnesium oxide 400 mg p.o. daily, Singulair 10 mg at bedtime, Protonix 40 mg daily, MiraLAX 17 g p.o. daily, potassium chloride 20 mEq daily, prednisone 30 mg daily, sildenafil 20 mg 3 times a day. IMPRESSION AND PLAN: Severe pulmonary hypertension, cardiac diastolic dysfunction, chronic lung disease, suspected sleep apnea syndrome, pleural effusion, lower extremity cellulitis. Continue to encourage bilevel positive airway pressure use at night, head of bed elevated 45 degrees, sleep apnea precaution. Continue p.o. and inhaled bronchodilators. Continue diuretics, sildenafil. Monitor blood pressure. Watch for hypotension. Continue physical therapy. This patient was seen and examined with Dr. Valentine. Discussed assessment and plan as described above. Thank you for this consult. We will follow with you. Shade Blanco APN Ban Valentine MD [facility] # [id number]
--- NOTE | 2018-06-21 19:53 | PN ---
DATE: 06/21/2018 SUBJECTIVE: The patient is sitting on a chair, had BiPAP for a few hours earlier. She denies any chest pain. PHYSICAL EXAMINATION: VITAL SIGNS: Blood pressure 114/50, heart rate 71, temperature 98.1, and respirations 18. HEENT: Normocephalic. CHEST: Absent breath sounds over the right base. HEART: S1 and S2 regular. EXTREMITIES: Trace leg edema. Chest CT scan performed yesterday revealed persistent bilateral pleural effusion. Compressive atelectasis both lower lobes. ASSESSMENT: 1. Bilateral compressive atelectasis. 2. Bilateral pleural effusion. 3. Diastolic heart failure. 4. Chronic obstructive lung disease. RECOMMENDATIONS: Continue Diamox, which was started today at 250 mg daily, albuterol inhaler every 2 hours, Brovana 15 mcg inhalation every 12 hours, aspirin 81 mg once a day, K-Dur 20 mEq once a day, Lasix 40 mg intravenously daily, magnesium oxide 400 mg once a day, prednisone 30 mg once a day, and Singulair 10 mg p.o. nightly. Michael Parr MD
[2018-06-22] MEDS: Pantoprazole 40 mg EC Tab PO SCH (05:02)
[2018-06-22] MEDS: Budesonide 0.5 mg/2 ml Inhal Susp UD IH SCH ×2 (07:13→22:30)
[2018-06-22] MEDS: Arformoterol 15 mcg/2 ml Inh Sol IH SCH ×2 (07:13→22:30)
[2018-06-22 07:16] LABS: HEMOGLOBIN 11.1 g/dL (12.0-16.0); MEAN CELL VOLUME 97.9 fl (80.0-105.0); MEAN CORPUSCULAR HEMOGLOBIN 29.7 pg (25.0-35.0); MEAN CORPUSCULAR HGB CONC 30.3 g/dl (31.0-37.0); MEAN PLATELET VOLUME 9.9 fl (7.0-11.0); RBC 3.74 10^6/uL (3.5-6.1); RED CELL DISTRIBUTION WIDTH 15.4 % (11.5-14.5)
[2018-06-22 07:23] LABS: ALB/GLOB RATIO 1.1 (1.1-1.8); ALBUMIN 3.1 g/dL (3.0-4.8); ALT/SGPT 38 U/L (7-56); AST/SGOT 34 U/L (14-36); BLOOD UREA NITROGEN 28 mg/dL (7-21); CALCIUM 8.6 mg/dL (8.4-10.5); GFR NON-AFRICAN AMERICAN > 60
[2018-06-22] MEDS: Potassium Chloride 20 mEq ER Tab PO SCH (07:58)
[2018-06-22 08:28] LABS: ARTERIAL BLOOD GAS HCO3 41.2 mmol/L (21-28); ARTERIAL BLOOD GAS HEMOGLOBIN 11.3 g/dL (11.7-17.4); ARTERIAL BLOOD GAS O2 CAPACITY 15.2 mL/dl (16-24); ARTERIAL BLOOD GAS O2 CONTENT 13.1 ML/dl (15-23); ARTERIAL BLOOD GAS PCO2 65 mm/Hg (35-45); ARTERIAL BLOOD GAS PH 7.41 (7.35-7.45); ARTERIAL BLOOD GAS TCO2 43.2 mmol.L (22-28)
--- NOTE | 2018-06-22 08:47 | PN ---
DATE: 06/19/2018 CARDIOLOGY FOLLOWUP SUBJECTIVE: The patient is currently in the TCU. She was placed on Lasix in the TCU with improvement of her respiratory status. Her cardiac evaluation included an echocardiogram in 04/2018 which revealed an ejection fraction of 68% with severe pulmonary hypertension with a RSVP of greater than 145. PHYSICAL EXAMINATION: GENERAL: Currently the patient is in a chair in the TCU without distress. VITAL SIGNS: Blood pressure 113/61, heart rates in the 60s. NECK: Negative JVD. LUNGS: Decreased breath sounds without rales. HEART: S1, S2. EXTREMITIES: Without edema. LABORATORY DATA: Hemoglobin is 3.7. Chemistries, BUN and creatinine are unremarkable. IMPRESSION: 1. Severe pulmonary hypertension. 2. Mild congestive heart failure. 3. Dyspnea. 4. Severe chronic obstructive pulmonary disease. Given these findings, the patient was started on IV Lasix every 12 hours. Will continue for the next 24-48 hours, then and change to p.o. Lasix in the morning. Shaheed Handy MD
[2018-06-22] MEDS: Magnesium Oxide 400 mg Tab UD PO SCH (09:37)
[2018-06-22] MEDS: Ammonium Lactate 12% Cream (140 g) TOP SCH (09:38)
[2018-06-22] MEDS: Sildenafil 20 MG TAB PO SCH ×3 (09:38→17:39)
[2018-06-22] MEDS: POLYETHYLENE GLYCOL 3350 17 GM/Dose PACKET PO SCH (09:39)
--- NOTE | 2018-06-22 10:45 | PN ---
DATE: 06/22/2018 SUBJECTIVE: The patient is comfortable in bed. No shortness of breath. No chest pain. PHYSICAL EXAMINATION: VITAL SIGNS: Blood pressure 145/67, heart rate is in the 60s. NECK: Negative JVD. LUNGS: Without rales. HEART: With S1 and S2. EXTREMITIES: Without edema. LABORATORY DATA: Hemoglobin is 11.1. Chemistries, BUN and creatinine 28 and 0.8. IMPRESSION: 1. Severe pulmonary hypertension. 2. Resolution of mild congestive heart failure. 3. Chronic dyspnea. 4. Severe chronic obstructive pulmonary disease. PLAN: Given these findings, the patient is hemodynamically stable. We will change her Lasix to p.o. Lasix daily. Shaheed Handy MD
--- NOTE | 2018-06-22 12:03 | CP.PCM.PN ---
<Denis Victor - Last Filed: 06/22/18 22:33> Subjective - Date & Time of Evaluation Date of Evaluation: 06/22/18 Time of Evaluation: 14:12 - Subjective Subjective: Denis Victor DO PGY1 - Internal Medicine [employer] - Medicine Progress note Patient was seen and evaluated at bedside in TCU this morning. No acute events overnight. Feels much better this morning; reports much easier breathing. She states she feels less congestion. Denies abdominal pain n/v/d/c, tolerating diet well, moving bowels well. Objective - Vital Signs/Intake and Output Vital Signs (last 24 hours): Temp Pulse Resp BP Pulse Ox 98.1 F 68 18 129/61 90 L 06/21/18 16:00 06/21/18 17:18 06/21/18 16:00 06/22/18 09:38 06/21/18 16:00 - Medications Medications: Current Medications Acetazolamide (Diamox 250 Mg Tab) 250 mg PO DAILY ARAM Last Admin: 06/22/18 09:37 Dose: 250 mg Albuterol/Ipratropium (Duoneb 3 Mg/0.5 Mg (3 Ml) Ud) 3 ml IH Q2H PRN; Protocol PRN Reason: SOB Last Admin: 06/20/18 19:27 Dose: 3 ml Arformoterol Tartrate (Brovana) 15 mcg IH [id number] ARAM Last Admin: 06/22/18 07:13 Dose: 15 mcg Aspirin (Ecotrin) 81 mg PO 0800 ARAM; Protocol Last Admin: 06/22/18 07:58 Dose: 81 mg Budesonide (Pulmicort Respules) 0.5 mg IH [id number] ARAM; Protocol Last Admin: 06/22/18 07:13 Dose: 0.5 mg Carvedilol (Coreg) 3.125 mg PO BID ARAM; Protocol Last Admin: 06/22/18 09:38 Dose: 3.125 mg Furosemide (Lasix) 40 mg PO DAILY ARAM Lactic Acid (Lac-Hydrin 12% Cream (140 G)) 0 ea TOP DAILY ARAM; Protocol Last Admin: 06/22/18 09:38 Dose: 1 appful Magnesium Oxide (Mag-Ox) 400 mg PO DAILY ARAM; Protocol Last Admin: 06/22/18 09:37 Dose: 400 mg Montelukast Sodium (Singulair) 10 mg PO HS ARAM; Protocol Last Admin: 06/21/18 21:14 Dose: 10 mg Pantoprazole Sodium (Protonix Ec Tab) 40 mg PO 0600 [facility]CLUDES [facility]; Protocol Last Admin: 06/22/18 05:02 Dose: 40 mg Polyethylene Glycol (Miralax) 17 gm PO DAILY [facility]CLUD[facility]; Protocol Last Admin: 06/22/18 09:39 Dose: Not Given Potassium Chloride (K-Dur 20 Meq Er Tab) 20 meq PO 0800 ARAM; Protocol Last Admin: 06/22/18 07:58 Dose: 20 meq Prednisone (Prednisone Tab) 30 mg PO DAILY [facility]CLUD[facility]; Taper Stop: 06/27/18 11:29 Last Admin: 06/22/18 09:39 Dose: 30 mg Sildenafil Citrate (Revatio) 20 mg PO TID COUNT INCLUDES THE [facility] Last Admin: 06/22/18 09:38 Dose: 20 mg - Labs Labs: 06/22/18 06:30 06/22/18 06:30 Physical Exam - Constitutional Appears: Well, Non-toxic, No Acute Distress - Head Exam Head Exam: ATRAUMATIC, NORMOCEPHALIC - Eye Exam Eye Exam: EOMI, Normal appearance, PERRL. absent: Scleral icterus - ENT Exam ENT Exam: Mucous Membranes Moist - Neck Exam Neck exam: Positive for: Normal Inspection - Respiratory Exam Additional comments: Diminished breath sounds; poor air movement; bibasilar rales - Cardiovascular Exam Cardiovascular Exam: +S1, +S2, Systolic Murmur - GI/Abdominal Exam GI & Abdominal Exam: Normal Bowel Sounds, Soft. absent: Distended, Tenderness - Extremities Exam Additional comments: 1+ Pitting Edema present in bilateral lower extremities; Chronic venostatic erythema noted in bilateral lower extremities as well. Distal Pulses present. - Neurological Exam Neurological exam: Alert, CN II-XII Intact - Psychiatric Exam Psychiatric exam: Normal Affect, Normal Mood - Skin Skin Exam: Dry, Intact, Normal Color, Warm Assessment and Plan - Assessment and Plan (Free Text) Assessment: 82F w/ pmhx COPD (On 2L O2 NC), Pulm HTN, Cellulitis/Dermatitis, HFpEF (Most recent EF 65-70% 04/2018) presented to ED on 06/15 w/ SOB x2 days prior to admission. CXR upon admission showed increased vascular markings, BNP elevated to 7800; patient subsequently admitted for management of CHF exacerbation. Tra nsferred to TCU 12/20 for further diuresis as well as PT for treatment of deconditioning. Plan: CHF exacerbation 2/2 noncompliance: - As per discussion w/ patient, it appears patient has been poorly complaint w/ follow up and medical management; she has poor insignt into her medical issues. - Patient diuresed w/ lasix; urinating appropriately w/ good output - CXR 06/20 shows stable pleural effusion vs infiltrate compared to 06/18 - 06/20 CT Chest - no infiltrate; +pleural effusion - Procal wnl - Lasix 40 PO QD - Revatio, Diamox - Prednisone 30 QD - Serial EKG / Serial Troponins show no evidence of ischemia - C/w Strict I/Os - HHD low salt diet - fluid restricted 1250ml - C/w ASA - Cardiology Following appreciate recs - Pulmonology following, appreciate recs COPD w/ Chronic Respiratory Failure : - Cont home O2 @ 2L - Duonebs PRN Q2 - Duonebs ARAM Q6 - Cont home pulmicort - Cont home singulair Chronic Constipation - C/w Miralax 17gm QD Hx HTN - C/w Coreg 3.125 BID ; Hold for systolic <120; HR <60 HypoMag C/w MagOx 400 QD HypoKalemia C/w KChlor 20 QD PPX: GI: Protonix DVT: Lovenox Upon discharge; Patient has been setup w/ Dr. Lo's group who will be able to provide in home visits to assess patient/ maintain follow up. Will discharge Patient was seen, examined, and discussed w/ attending physician Dr. Edna Victor DO PGY1 - Internal Medicine [employer] - Medicine Progress Note <Izaiah Bishop - Last Filed: 06/23/18 12:02> Objective - Vital Signs/Intake and Output Vital Signs (last 24 hours): Temp Pulse Resp BP Pulse Ox 97.4 F L 77 18 128/86 97 06/23/18 10:00 06/23/18 10:00 06/23/18 10:00 06/23/18 10:00 06/23/18 10:00 Intake and Output: 06/23/18 06/23/18 06:59 18:59 Intake Total 500 Balance 500 - Medications Medications: Current Medications Acetazolamide (Diamox 250 Mg Tab) 250 mg PO DAILY ARAM Last Admin: 06/23/18 09:43 Dose: 250 mg Albuterol/Ipratropium (Duoneb 3 Mg/0.5 Mg (3 Ml) Ud) 3 ml IH Q2H PRN; Protocol PRN Reason: SOB Last Admin: 06/20/18 19:27 Dose: 3 ml Arformoterol Tartrate (Brovana) 15 mcg IH [id number] ARAM Last Admin: 06/23/18 08:49 Dose: 15 mcg Aspirin (Ecotrin) 81 mg PO 0800 ARAM; Protocol Last Admin: 06/23/18 08:15 Dose: 81 mg Budesonide (Pulmicort Respules) 0.5 mg IH [id number] ARAM; Protocol Last Admin: 06/23/18 08:50 Dose: 0.5 mg Carvedilol (Coreg) 3.125 mg PO BID ARAM; Protocol Last Admin: 06/23/18 09:43 Dose: Not Given Furosemide (Lasix) 40 mg PO DAILY ARAM Last Admin: 06/23/18 09:44 Dose: 40 mg Lactic Acid (Lac-Hydrin 12% Cream (140 G)) 0 ea TOP DAILY ARAM; Protocol Last Admin: 06/23/18 09:44 Dose: 1 appful Magnesium Oxide (Mag-Ox) 400 mg PO DAILY ARAM; Protocol Last Admin: 06/23/18 09:44 Dose: 400 mg Montelukast Sodium (Singulair) 10 mg PO HS ARAM; Protocol Last Admin: 06/22/18 21:36 Dose: 10 mg Pantoprazole Sodium (Protonix Ec Tab) 40 mg PO 0600 ARAM; Protocol Last Admin: 06/23/18 05:24 Dose: 40 mg Polyethylene Glycol (Miralax) 17 gm PO DAILY ARAM; Protocol Last Admin: 06/23/18 09:44 Dose: Not Given Potassium Chloride (K-Dur 20 Meq Er Tab) 20 meq PO 0800 ARAM; Protocol Last Admin: 06/23/18 08:15 Dose: 20 meq Prednisone (Prednisone Tab) 20 mg PO DAILY ARAM; Taper Stop: 06/27/18 11:29 Last Admin: 06/23/18 09:44 Dose: 30 mg Sildenafil Citrate (Revatio) 20 mg PO TID ARAM Last Admin: 06/23/18 09:44 Dose: 20 mg - Labs Labs: 06/23/18 06:00 06/23/18 06:00 Attending/Attestation - Attestation I have personally seen and examined this patient.: Yes I have fully participated in the care of the patient.: Yes I have reviewed all pertinent clinical information, including history, physical exam and plan: Yes Notes (Text): 06/23/18 11:57 attending note; Patient seen and examined with the resident. Patient is a 82-year-old female past medical history significant for PE, pulmonary hypertension, cellulitis/dermatitis, chronic respiratory failure secondary to COPD on home oxygen, and diastolic CHF that presented to the emergency room with shortness of breath for 2 days. Patient was transferred to TCU 06/17/18 1. Gait instability. Continue physical therapy as tolerated. Patient is currently working with physical therapy and occupational therapy. 2. Dyspnea. improving slowly. Secondary to acute on chronic diastolic CHF exacerbation and COPD with hypoxia and hypercapnia and severe pulmonary hypertension. Chest xray showed stable primarily bilateral lower lobe infiltrates . Continue Lasix 40 mg IV daily. Continue Coreg 3.125 mg twice a day. Continue aspirin. Revatio and acetazolamide started by pulmonary. Continue BIPAP as needed. Case discussed with transplant case manager in detail for BiPAP arrangements at home. 3. Chronic respiratory failure secondary to COPD with hypoxia and hypercapnia. On home oxygen. Continue nebulizer treatments. Continue Brovana, Pulmicort, and Singulair. Continue BIPAP as needed. Continue prednisone taper. 4. Hypertension. Continue Coreg and Lasix continue physical therapy. Case was discussed in detail with the patient regarding current diagnosis and treatment plan. 06/23/18 12:00
--- NOTE | 2018-06-22 13:24 | PN ---
PULMONARY PROGRESS NOTE DATE: 06/22/2018 REFERRING PHYSICIAN: Izaiah Bishop MD SUBJECTIVE: The patient is sitting up in bed. No acute distress. Reports cough and shortness of breath are better. Reports only wearing CPAP machine for 30 minutes. No overnight events reported. No headache, rhinitis, chest pain, abdominal pain, nausea, vomiting, diarrhea, and leg pain reported. PHYSICAL EXAMINATION GENERAL: No acute distress. VITAL SIGNS: Blood pressure 129/61, pulse 68, and temperature 98. HEENT: Small oral cavity. Moist mucous membranes. NECK: Supple. No JVD. CARDIOVASCULAR: S1 and S2 audible. LUNGS: Scattered rhonchi bilaterally. ABDOMEN: Soft and nontender. No distention. No organomegaly. EXTREMITIES: No bilateral lower extremity edema. NEUROLOGIC: Awake, alert, verbal, and follows commands. MEDICATIONS: Reviewed. Diamox 250 mg p.o. daily, DuoNeb 3 mL every 2 hours p.r.n., Brovana 15 mcg every 12 hours, aspirin 81 mg daily, Pulmicort 0.5 mg every 12 hours, Coreg 3.125 mg twice a day, Lasix 40 mg daily, Lac-Hydrin topically affected area daily, magnesium oxide 400 mg daily, Singulair 10 mg at bedtime, Protonix 40 mg daily, MiraLax 17 grams daily, potassium chloride 20 mEq daily, prednisone 30 mg daily, and Revatio 20 mg 3 times a day. LABORATORY DATA: Reviewed. WBC 9, RBC 3.74, hemoglobin 11, hematocrit 36.6, and platelets 237. PCO2 65, PO2 46, HCO3 41.2, and ABG pH 7.41. Sodium 134, potassium 4.0, chloride 88, carbon dioxide 43, anion gap 7, BUN 28, creatinine 0.8. GFR is greater than 60. Random glucose 88. Calcium 8.6, phosphorus 3.6, magnesium 1.9. Total bilirubin 0.5. AST 34, ALT 38, alkaline phosphatase 65, total protein 6, albumin 3.1, globulin 2.9, and albumin-globulin ratio 1.1. IMPRESSION AND PLAN: Severe pulmonary hypertension, cardiac diastolic dysfunction, chronic lung disease, suspected sleep apnea syndrome, pleural effusion, and lower extremity cellulitis. Pulmonary point of view, continue to encourage bilevel positive airway pressure use at bedtime, head of bed elevated 45 degrees, and sleep apnea precaution. Continue inhaled bronchodilators and p.o. bronchodilators. Continue diuretics and sildenafil. Monitor blood pressure for hypotension. Continue physical therapy. We will decrease the patient's prednisone to 20 mg daily. We will need to follow pulse ox. We will consult manager social services to work on sildenafil/ approval. Please continue prednisone as ordered and go according to tapering dose. This patient was seen and examined with Dr. Valentine. Discussed assessment and plan as described above. Thank you for this consult. We will follow with you. Shade Blanco APN MD Ban Ortiz MD
[2018-06-23] MEDS: Pantoprazole 40 mg EC Tab PO SCH (05:24)
[2018-06-23 06:55] LABS: HEMOGLOBIN 11.3 g/dL (12.0-16.0); MEAN CELL VOLUME 98.2 fl (80.0-105.0); MEAN CORPUSCULAR HEMOGLOBIN 29.5 pg (25.0-35.0); MEAN CORPUSCULAR HGB CONC 30.1 g/dl (31.0-37.0); MEAN PLATELET VOLUME 9.7 fl (7.0-11.0); RBC 3.83 10^6/uL (3.5-6.1); RED CELL DISTRIBUTION WIDTH 15.2 % (11.5-14.5); WHITE BLOOD COUNT 9.6 10^3/uL (4.5-11.0)
[2018-06-23 07:32] LABS: ALB/GLOB RATIO 1.2 (1.1-1.8); ALBUMIN 3.2 g/dL (3.0-4.8); ALT/SGPT 32 U/L (7-56); AST/SGOT 36 U/L (14-36); BLOOD UREA NITROGEN 29 mg/dL (7-21); CALCIUM 8.8 mg/dL (8.4-10.5); GFR NON-AFRICAN AMERICAN 53
[2018-06-23] MEDS: Potassium Chloride 20 mEq ER Tab PO SCH (08:15)
[2018-06-23] MEDS: Arformoterol 15 mcg/2 ml Inh Sol IH SCH ×2 (08:49→20:18)
[2018-06-23] MEDS: Budesonide 0.5 mg/2 ml Inhal Susp UD IH SCH ×2 (08:50→20:18)
[2018-06-23] MEDS: POLYETHYLENE GLYCOL 3350 17 GM/Dose PACKET PO SCH (09:44)
[2018-06-23] MEDS: Magnesium Oxide 400 mg Tab UD PO SCH (09:44)
[2018-06-23] MEDS: Ammonium Lactate 12% Cream (140 g) TOP SCH (09:44)
[2018-06-23] MEDS: Sildenafil 20 MG TAB PO SCH ×3 (09:44→17:15)
--- NOTE | 2018-06-23 20:31 | PN ---
DATE: 06/23/2018 PULMONARY PROGRESS NOTE REFERRING PHYSICIAN: Dr. Victor. SUBJECTIVE: She is lying in the bed, head at 45 degrees. Night was unremarkable. Not very compliant with the CPAP. No cough. No sputum production. No nausea, vomiting, no diarrhea. Does have leg swelling. PHYSICAL EXAMINATION GENERAL: No acute distress. VITAL SIGNS: Temperature is 98, heart rate 77, respiratory rate of 18, blood pressure 125/62, pulse of 97% on the 2 liter nasal cannula. HEENT: Moist mucous membranes. Small oral cavity. NECK: Supple. No JVD. CARDIOPULMONARY: S1 and S2. LUNGS: Have a fair airflow with few scattered rhonchi. ABDOMEN: Soft, nontender. No organomegaly. EXTREMITIES: Has edema. NEUROLOGIC: Awake and follows simple command. LABORATORY DATA: Shows hemoglobin of 11.3, hematocrit 37.6, WBC 9.6, platelet is 246. Sodium 133, potassium 3.7, chloride 88, bicarbonate 38, BUN 29, creatinine 1.0, glucose 121, calcium is 8.8, phosphorus 3.6, magnesium 1.8, AST 36, ALT 32, alk phos is 64, albumin is 3.2. Procalcitonin less than 0.05. MEDICATIONS: She is on Brovana inhaled twice a day, Coreg 3.125 mg twice a day, Diamox 250 mg daily DuoNeb every 2 hours p.r.n., Ecotrin 81 mg daily, potassium 20 mEq daily, Lasix 40 mg daily, mag oxide 40 mg daily, MiraLax 17 g daily, prednisone 20 mg daily Protonix 40 mg daily, Pulmicort inhaled twice a day, 20 mg three times a day, Singulair 10 mg daily. IMPRESSION AND PLAN: Severe pulmonary hypertension, cardiac diastolic dysfunction, chronic lung disease, suspected sleep apnea syndrome, pleural effusion, lower extremity cellulitis. Pulmonary point of view, doing okay. Continue and encourage BiPAP use. Keep head at 45 degrees. Continue pulmonary vasodilator. Continue diuretics. Follow up labs in the morning. May decrease prednisone to 50 mg daily. Continue therapy. We will follow with you. Ban Valentine MD [facility] # [id number]
[2018-06-24] MEDS: Pantoprazole 40 mg EC Tab PO SCH (05:32)
[2018-06-24 06:48] LABS: ALB/GLOB RATIO 1.2 (1.1-1.8); ALBUMIN 3.2 g/dL (3.0-4.8); ALT/SGPT 39 U/L (7-56); AST/SGOT 31 U/L (14-36); BLOOD UREA NITROGEN 35 mg/dL (7-21); CALCIUM 8.9 mg/dL (8.4-10.5); GFR NON-AFRICAN AMERICAN 53
[2018-06-24] MEDS: Potassium Chloride 20 mEq ER Tab PO SCH (07:55)
[2018-06-24 08:35] LABS: EOS % 0.2 % (1.5-5.0); GRAN # 6.75 (1.4-6.5); GRAN % 76.3 % (50.0-68.0); HEMOGLOBIN 11.5 g/dL (12.0-16.0); LYMPH # 1.1 (1.2-3.4); LYMPH % 12.2 % (22.0-35.0); MEAN CELL VOLUME 98.4 fl (80.0-105.0); MEAN CORPUSCULAR HEMOGLOBIN 29.9 pg (25.0-35.0); MEAN CORPUSCULAR HGB CONC 30.4 g/dl (31.0-37.0); MEAN PLATELET VOLUME 10.3 fl (7.0-11.0); MONO % 11.3 % (1.0-6.0); RBC 3.84 10^6/uL (3.5-6.1); RED CELL DISTRIBUTION WIDTH 15.2 % (11.5-14.5); WHITE BLOOD COUNT 8.9 10^3/uL (4.5-11.0)
[2018-06-24] MEDS: Arformoterol 15 mcg/2 ml Inh Sol IH SCH ×2 (09:44→20:07)
[2018-06-24] MEDS: Budesonide 0.5 mg/2 ml Inhal Susp UD IH SCH ×2 (09:44→20:07)
[2018-06-24] MEDS: Albuterol-Ipratrop 3 mg / 0.5 (3 ml) UD IH PRN (09:44)
[2018-06-24] MEDS: Ammonium Lactate 12% Cream (140 g) TOP SCH (10:34)
[2018-06-24] MEDS: POLYETHYLENE GLYCOL 3350 17 GM/Dose PACKET PO SCH (10:36)
[2018-06-24] MEDS: Magnesium Oxide 400 mg Tab UD PO SCH (10:36)
[2018-06-24] MEDS: Sildenafil 20 MG TAB PO SCH ×3 (10:36→17:15)
--- NOTE | 2018-06-24 14:56 | CP.PCM.PN ---
Subjective - Date & Time of Evaluation Date of Evaluation: 06/24/18 Time of Evaluation: 14:47 - Subjective Subjective: Denis Victor DO PGY1 - Internal Medicine [employer] - Hospital Progress note Patient was seen and examined at bedside this morning in TCU. NO acute events reported overnight. Patient reports she is breathing well; feels less congestion in her chest. Denies chest pain, abd pain, n/v/d/c. Tolerating diet well; moving bowels well. Patient tolerated bipap well overnight. Objective - Vital Signs/Intake and Output Vital Signs (last 24 hours): Temp Pulse Resp BP Pulse Ox 97.3 F L 82 20 135/78 97 06/24/18 09:25 06/24/18 10:35 06/24/18 10:00 06/24/18 10:36 06/24/18 09:25 Intake and Output: 06/24/18 06/24/18 06:59 18:59 Intake Total 360 Output Total 300 Balance 60 - Medications Medications: Current Medications Acetazolamide (Diamox 250 Mg Tab) 125 mg PO DAILY [facility] Albuterol/Ipratropium (Duoneb 3 Mg/0.5 Mg (3 Ml) Ud) 3 ml IH Q2H PRN; Protocol PRN Reason: SOB Last Admin: 06/24/18 09:44 Dose: 3 ml Arformoterol Tartrate (Brovana) 15 mcg IH [id number] ARAM Last Admin: 06/24/18 09:44 Dose: 15 mcg Aspirin (Ecotrin) 81 mg PO 0800 ARAM; Protocol Last Admin: 06/24/18 07:55 Dose: 81 mg Budesonide (Pulmicort Respules) 0.5 mg IH [id number] ARAM; Protocol Last Admin: 06/24/18 09:44 Dose: 0.5 mg Carvedilol (Coreg) 3.125 mg PO BID ARAM; Protocol Last Admin: 06/24/18 10:35 Dose: 3.125 mg Furosemide (Lasix) 20 mg PO DAILY ARAM Lactic Acid (Lac-Hydrin 12% Cream (140 G)) 0 ea TOP DAILY ARAM; Protocol Last Admin: 06/24/18 10:34 Dose: 1 appful Magnesium Oxide (Mag-Ox) 400 mg PO DAILY ARAM; Protocol Last Admin: 06/24/18 10:36 Dose: 400 mg Montelukast Sodium (Singulair) 10 mg PO HS ARAM; Protocol Last Admin: 06/23/18 21:18 Dose: 10 mg Pantoprazole Sodium (Protonix Ec Tab) 40 mg PO 0600 ARAM; Protocol Last Admin: 06/24/18 05:32 Dose: 40 mg Polyethylene Glycol (Miralax) 17 gm PO DAILY ARAM; Protocol Last Admin: 06/24/18 10:36 Dose: 17 gm Potassium Chloride (K-Dur 20 Meq Er Tab) 20 meq PO 0800 ARAM; Protocol Last Admin: 06/24/18 07:55 Dose: 20 meq Prednisone (Prednisone Tab) 20 mg PO DAILY [facility]; Taper Stop: 06/27/18 11:29 Last Admin: 06/24/18 10:36 Dose: 20 mg Sildenafil Citrate (Revatio) 20 mg PO TID ARAM Last Admin: 06/24/18 14:45 Dose: 20 mg - Labs Labs: 06/24/18 06:00 06/24/18 06:00 Physical Exam - Constitutional Appears: Comfortable, No acute distress - Head Exam Head Exam: ATRAUMATIC, NORMOCEPHALIC - Eye Exam Eye Exam: EOMI, Normal appearance, PERRL. absent: Scleral icterus - ENT Exam ENT Exam: Mucous Membranes Moist - Neck Exam Neck exam: Positive for: Normal Inspection - Respiratory Exam Additional comments: Mild Bibasilar crackles; poor air movement diffusely - Cardiovascular Exam Cardiovascular Exam: +S1, +S2, Systolic Murmur - GI/Abdominal Exam GI & Abdominal Exam: Normal Bowel Sounds, Soft. absent: Distended, Tenderness - Extremities Exam Additional comments: BL LE Edema significantly improved; Chronic venostatic changes appreciated; 2+ Distal Pulses BL - Neurological Exam Neurological exam: Alert, CN II-XII Intact - Psychiatric Exam Psychiatric exam: Normal Affect, Normal Mood - Skin Skin Exam: Dry, Intact, Normal Color, Warm Assessment and Plan - Assessment and Plan (Free Text) Assessment: 82F w/ pmhx COPD (On 2L O2 NC), Pulm HTN, Cellulitis/Dermatitis, HFpEF (Most recent EF 65-70% 04/2018) presented to ED on 06/15 w/ SOB x2 days prior to admission. CXR upon admission showed increased vascular markings, BNP elevated to 7800; patient subsequently admitted for management of CHF exacerbation. Transferred to TCU 06/18 for further diuresis as well as PT for treatment of deconditioning. Plan: CHF exacerbation 2/2 noncompliance: - As per discussion w/ patient, it appears patient has been poorly complaint w/ follow up and medical management; she has poor insignt into her medical issues. - CXR 06/20 shows stable pleural effusion vs infiltrate compared to 06/18 - 06/20 CT Chest - no infiltrate; +pleural effusion - Procal wnl - Decreased to Lasix 20 PO QD - C/w Prednisone Taper - Serial EKG / Serial Troponins show no evidence of ischemia - C/w Strict I/Os - HHD low salt diet - fluid restricted 1250ml - C/w ASA - Cardiology Following appreciate recs Pulm HTN - Decreased to Diamox 125 PO QD - C/w Revatio 20 PO TID - Lasix as above - Pulmonology following, appreciate recs COPD w/ Chronic Respiratory Failure : - Cont home O2 @ 2L - Duonebs PRN Q2 - DC Duonebs ARAM Q6 - Cont home pulmicort - Cont home singulair - Please Note: This patient requires trilogy non-invasive ventilation, Patient has chronic respiratory failure due to severe COPD. Patient requires triology non-invasive ventilation in AVAPS mode at home and battery back up as there cannot be any interruption to therapy. This is to ensure nighttime and daytime use to maintain CO2 leevels within a normal range. PLan has been discussed w/ patient; Bipap to be discontinued. Patient is not tolerating BiPAP at night. Chronic Constipation - C/w Miralax 17gm QD Hx HTN - C/w Coreg 3.125 BID ; Hold for systolic <120; HR <60 HypoMag C/w MagOx 400 QD HypoKalemia C/w KChlor 20 QD PPX: GI: Protonix DVT: Lovenox DISPO: Upon discharge; Patient has been setup w/ Dr. Lo's group/ [facility] who will be able to provide in home visits to assess patient/ maintain follow up. Patient will be DC home w/ services vs. ADDY Patient was seen, examined, and discussed w/ attending physician Dr. Edna Victor DO PGY1 - Internal Medicine Dat[employer] Computer Consult[employer] - Medicine Progress Note
--- NOTE | 2018-06-24 14:56 | PN ---
DATE: 06/24/2018 PULMONARY PROGRESS NOTE REFERRING PHYSICIAN: Dr. Bishop. SUBJECTIVE: Patient is sitting up in chair in room, no acute distress. No overnight events reported. Patient reports cough and shortness of breath have improved. Did not use CPAP machine last night. No headache, rhinitis, chest pain, abdominal pain, nausea, vomiting or diarrhea reported. Patient does have leg swelling, no leg pain reported. OBJECTIVE GENERAL: No acute distress. VITAL SIGNS: Blood pressure 135/78, pulse 82, temperature 97.3 and oxygen saturation 97%. HEENT: Moist mucous membranes. Small oral cavity. NECK: Supple. No JVD. CARDIOVASCULAR: S1 and S2, audible. LUNGS: Few scattered rhonchi. ABDOMEN: Soft and nontender. No distention. No organomegaly. EXTREMITIES: Bilateral lower extremity edema. NEUROLOGIC: Awake, alert and verbal. Follows commands. LABORATORY DATA: Reviewed. WBC 8.9, RBC 3.84, hemoglobin 11.5, hematocrit 37.8, and platelets 259. Sodium 132, potassium 4.1, chloride 91, carbon dioxide 36, anion gap 9, BUN 35, creatinine 1, GFR 53, random glucose 92 and calcium 8.9. Total bilirubin 0.4, AST 31, ALT 39, alkaline phosphatase 60, total protein 5.9, albumin 3.2, globulin 2.6 MEDICATIONS: Reviewed. Diamox 250 mg p.o. daily, DuoNeb 3 mL inhalation every 2 hours p.r.n., Brovana 15 mcg every 12 hours, aspirin 81 mg daily, Pulmicort 0.5 mg every 12 hours, Coreg 3.125 mg twice a day, Lasix 20 mg daily, Lac-Hydrin topically to affected area daily, magnesium oxide 400 mg p.o. daily, Singulair 10 mg at bedtime, Protonix 40 mg daily, MiraLax 17 g daily, potassium 30 mEq daily, prednisone 20 mg daily and sidenafil 20 mg 3 times a day. IMPRESSION AND PLAN: Severe pulmonary hypertension, cardiac diastolic dysfunction, chronic lung disease, sleep apnea syndrome, pleural effusion, lower extremity cellulitis. Pulmonary point of view, continue to encourage bilevel positive airway pressure use at night, keep head of bed elevated at 45 degrees, continue pulmonary vasodilator. We will decrease Diamox to 125 mg daily. Repeat labs in the morning. Continue steroids. Continue physical therapy. Continue bronchodilators. This patient was seen and examined with Dr. Valentine. Discussed assessment and plan as described above. Thank you for this consult and we will follow with you. Shade Blanco APN Ban Valentine MD [facility]
--- NOTE | 2018-06-24 15:39 | PN ---
DATE: 06/24/2018 CARDIOLOGY FOLLOWUP SUBJECTIVE: The patient is in the TCU. She denies shortness of breath. PHYSICAL EXAMINATION: VITAL SIGNS: Blood pressure 135/78 and heart rates in the 80s. NECK: Negative JVD. LUNGS: Decreased breath sounds. HEART: Reveal S1 and S2. EXTREMITIES: Without edema. LABORATORY DATA: Hemoglobin is 11.5. Chemistries, BUN and creatinine are 35 and 1.0. IMPRESSION: 1. Severe pulmonary hypertension. 2. Resolution of dyspnea. 3. Prerenal azotemia. 4. Mild congestive heart failure. status post mild CHF, given these findings, we will decrease her Lasix dose in half to 20 daily. Shaheed Handy MD
[2018-06-25] MEDS: Pantoprazole 40 mg EC Tab PO SCH (06:02)
[2018-06-25 06:23] LABS: HEMOGLOBIN 11.1 g/dL (12.0-16.0); MEAN CELL VOLUME 99.5 fl (80.0-105.0); MEAN CORPUSCULAR HEMOGLOBIN 29.5 pg (25.0-35.0); MEAN CORPUSCULAR HGB CONC 29.7 g/dl (31.0-37.0); MEAN PLATELET VOLUME 9.8 fl (7.0-11.0); RBC 3.76 10^6/uL (3.5-6.1); RED CELL DISTRIBUTION WIDTH 15.3 % (11.5-14.5)
[2018-06-25] MEDS: Budesonide 0.5 mg/2 ml Inhal Susp UD IH SCH ×2 (07:23→21:15)
[2018-06-25] MEDS: Arformoterol 15 mcg/2 ml Inh Sol IH SCH ×2 (07:23→21:15)
[2018-06-25 07:46] LABS: ALB/GLOB RATIO 1.1 (1.1-1.8); ALBUMIN 3.1 g/dL (3.0-4.8); CALCIUM 8.8 mg/dL (8.4-10.5)
[2018-06-25] MEDS: Potassium Chloride 20 mEq ER Tab PO SCH (07:57)
[2018-06-25] MEDS: Ammonium Lactate 12% Cream (140 g) TOP SCH (09:52)
[2018-06-25] MEDS: Sildenafil 20 MG TAB PO SCH ×3 (09:55→17:13)
[2018-06-25] MEDS: Magnesium Oxide 400 mg Tab UD PO SCH (09:55)
[2018-06-25] MEDS: POLYETHYLENE GLYCOL 3350 17 GM/Dose PACKET PO SCH (10:31)
--- NOTE | 2018-06-25 11:40 | PN ---
DATE: 06/25/2018 PULMONARY PROGRESS NOTE REFERRING PHYSICIAN: Izaiah Bishop MD SUBJECTIVE: The patient is sitting in armchair in room. No acute distress. No overnight events reported. The patient reports cough, and shortness of breath have improved. Reports not using CPAP machine last night. No headache, rhinitis, chest pain, abdominal pain, nausea, vomiting, diarrhea, and leg pain reported. OBJECTIVE: GENERAL: No acute distress. VITAL SIGNS: Blood pressure 114/57 and pulse 104. HEENT: Moist mucous membranes. Small oral cavity. NECK: Supple. No JVD.. CARDIOVASCULAR: S1 and S2 audible. LUNGS: Few scattered rhonchi bilaterally. ABDOMEN: Soft and nontender. No distention. No organomegaly. EXTREMITIES: Bilateral lower extremity edema. NEUROLOGIC: Awake, alert and verbal. Follows commands. MEDICATIONS: Reviewed. Diamox 125 mg p.o. daily, DuoNeb 3 mL inhalation every 2 hours p.r.n., Brovana 15 mcg every 12 hours, aspirin 81 mg daily, Pulmicort 0.5 mg every 12 hours, Coreg 3.125 mg twice a day, Lasix 20 mg daily, Lac-Hydrin topically to affected area daily, magnesium oxide 400 mg p.o. daily, Singulair 10 mg at bedtime, Protonix 40 mg daily, MiraLax 17 g daily, potassium chloride 20 mEq daily, prednisone 20 mg daily and sildenafil 20 mg three times a day. LABORATORY DATA: Reviewed. WBC 8.0, RBC 3.76, hemoglobin 11, hematocrit 37.4, and platelets 248. Sodium 134, potassium 4.0, chloride 92, carbon dioxide 38, anion gap 9, BUN 40, creatinine 1.2, GFR 43, random glucose 90, calcium 8.8, phosphorus 3.7, magnesium 2.0, total bilirubin 0.3, AST 33, ALT 36, alkaline phosphatase, total protein 5.9, albumin 3.1, globulin 2.7, and albumin-globulin ratio 1.1. IMPRESSION AND PLAN: Severe pulmonary hypertension, cardiac diastolic dysfunction, chronic lung disease, suspected sleep apnea syndrome, pleural effusion, and lower extremity cellulitis. Pulmonary point of view, continue to encourage bilevel positive airway pressure use at bedtime, keep head of bed elevated at 45 degrees, continue pulmonary vasodilator, monitor for hypotension, continue steroids, continue bronchodilators, sleep apnea precaution, fall precaution. Will discontinue Diamox. Continue lasix and sildenafil/ Patient as outpatient should be taking Letairis 5mg daily for pulmonary hypertension. Case was discussed with nursing staff. This patient was seen and examined with Dr. Valentine. Discussed assessment and plan as described above. Thank you for this consult. We will follow with you. Shade Blanco APN Ban Valentine MD GUERDA
--- NOTE | 2018-06-25 13:10 | CP.PCM.DIS ---
Provider - Provider Date of Admission: 06/17/18 19:12 Attending physician: Madalyn Victor DO Primary care physician: NO PRIMARY CARE PROVIDER Dr. Lo / [facility] Consults: 06/17/18 20:48 Physician Consult Routine Comment: Consulting Provider: Shaheed Handy Consulting Physician: Shaheed Handy Reason for Consult: CHF Exarcerbation 06/17/18 20:51 Social Work Referral Routine Comment: Home bound (can not see doctor) Physician Instructions: Reason For Exam: Eval 06/19/18 12:40 Pulmonology Consult Routine Comment: Consulting Provider: Ban Valentine Consulting Physician: Ban Valentine Reason for Consult: COPD Time Spent in preparation of Discharge (in minutes): 45 Diagnosis - Discharge Diagnosis (1) Pulmonary hypertension Status: Acute (2) CHF (congestive heart failure) Status: Acute Priority: High (3) COPD (chronic obstructive pulmonary disease) Status: Chronic (4) Respiratory failure with hypoxia Status: Chronic Hospital Course - Lab Results Lab Results: Most Recent Lab Values WBC 8.0 10^3/uL (4.5-11.0) 06/25/18 06:00 RBC 3.76 10^6/uL (3.5-6.1) 06/25/18 06:00 Hgb 11.1 g/dL (12.0-16.0) L 06/25/18 06:00 Hct 37.4 % (36.0-48.0) 06/25/18 06:00 MCV 99.5 fl (80.0-105.0) 06/25/18 06:00 MCH 29.5 pg (25.0-35.0) 06/25/18 06:00 MCHC 29.7 g/dl (31.0-37.0) L 06/25/18 06:00 RDW 15.3 % (11.5-14.5) H 06/25/18 06:00 Plt Count 248 10^3/uL (120.0-450.0) 06/25/18 06:00 MPV 9.8 fl (7.0-11.0) 06/25/18 06:00 Gran % 76.3 % (50.0-68.0) H 06/24/18 06:00 Lymph % (Auto) 12.2 % (22.0-35.0) L 06/24/18 06:00 Crisp % (Auto) 11.3 % (1.0-6.0) H 06/24/18 06:00 Eos % (Auto) 0.2 % (1.5-5.0) L 06/24/18 06:00 Baso % (Auto) 0.0 % (0.0-3.0) 06/24/18 06:00 Gran # 6.75 (1.4-6.5) H 06/24/18 06:00 Lymph # (Auto) 1.1 (1.2-3.4) L 06/24/18 06:00 Crisp # (Auto) 1.0 (0.1-0.6) H 06/24/18 06:00 Eos # (Auto) 0.0 (0.0-0.7) 06/24/18 06:00 Baso # (Auto) 0.00 K/mm3 (0.0-2.0) 06/24/18 06:00 pCO2 65 mm/Hg (35-45) H 06/22/18 05:00 pO2 46.0 mm/Hg (80-100) L 06/22/18 05:00 HCO3 41.2 mmol/L (21-28) H* 06/22/18 05:00 ABG pH 7.41 (7.35-7.45) 06/22/18 05:00 ABG Total CO2 43.2 mmol.L (22-28) H 06/22/18 05:00 ABG O2 Saturation 86.0 % (95-98) L 06/22/18 05:00 ABG O2 Content 13.1 ML/dl (15-23) L 06/22/18 05:00 ABG Base Excess 14.0 mmol/L (-2.0-3.0) H 06/22/18 05:00 ABG Hemoglobin 11.3 g/dL (11.7-17.4) L 06/22/18 05:00 ABG Carboxyhemoglobin 3.0 % (0.5-1.5) H 06/22/18 05:00 POC ABG HHb (Measured) 13.4 % (0-5) H 06/22/18 05:00 ABG Methemoglobin 1.0 % (0.0-3.0) 06/22/18 05:00 ABG O2 Capacity 15.2 mL/dl (16-24) L 06/22/18 05:00 Hgb O2 Saturation 82.6 % (95.0-98.0) L 06/22/18 05:00 FiO2 32.0 % 06/22/18 05:00 Sodium 134 mmol/L (132-148) 06/25/18 06:00 Potassium 4.0 mmol/L (3.6-5.0) 06/25/18 06:00 Chloride 92 mmol/L (98-107) L 06/25/18 06:00 Carbon Dioxide 38 mmol/L (21-33) H 06/25/18 06:00 Anion Gap 9 (10-20) L 06/25/18 06:00 BUN 40 mg/dL (7-21) H 06/25/18 06:00 Creatinine 1.2 mg/dl (0.7-1.2) 06/25/18 06:00 Est GFR ( Amer) 52 06/25/18 06:00 Est GFR (Non-Af Amer) 43 06/25/18 06:00 POC Glucose (mg/dL) 97 mg/dL (65-110) 06/19/18 16:37 Random Glucose 90 mg/dL (70-110) 06/25/18 06:00 Calcium 8.8 mg/dL (8.4-10.5) 06/25/18 06:00 Phosphorus 3.7 mg/dL (2.5-4.5) 06/25/18 06:00 Magnesium 2.0 mg/dL (1.7-2.2) 06/25/18 06:00 Total Bilirubin 0.3 mg/dL (0.2-1.3) 06/25/18 06:00 AST 33 U/L (14-36) 06/25/18 06:00 ALT 36 U/L (7-56) 06/25/18 06:00 Alkaline Phosphatase 58 U/L (38-126) 06/25/18 06:00 Total Protein 5.9 g/dL (5.8-8.3) 06/25/18 06:00 Albumin 3.1 g/dL (3.0-4.8) 12/27/18 06:00 Globulin 2.7 gm/dL 06/25/18 06:00 Albumin/Globulin Ratio 1.1 (1.1-1.8) 06/25/18 06:00 Procalcitonin < 0.05 NG/ML (0.19-0.49) L 06/20/18 07:00 - Hospital Course Hospital Course: Denis Victor DO PGY1 - Internal Medicine [employer] - Hospital [place] Summary Disclaimer: please note this is a brief synopsis of the patient's hospital course; for full hospital record please refer to EMR 82F w/ a PMH of COPD on 2L Home O2 NC, HFpEF (EF 65-70% on 04/2018), pulmonary hypertension, presented to [facility] ED on 06/15 w/ SOB x2 days prior to admission. Patient also voiced complaints of increased lower extremity edema occurring over the same time period. She was previously admitted during 04/2018 during which she was also found to have severe pulmonary hypertension and diastolic CHF on echocardiogram. CXR upon admission showed increased vascular markings, BNP elevated to 7800. She reports that she had poor follow up and demonstrated poor insight into her disease processes; reported she had been without her home lasix for a while. She was subsequently admitted for management of CHF exacerbation. During admission, Bilateral duplex at the lower extremities was ordered to rule out DVT; results showed that patient had no DVT. She was diuresed w/ IV lasix and IO was monitored. Troponins/ EKG were unremarkable for new/ worsening ischemic changes, and cardiology was consulted. Cardiology recommended continued diuresis. During her course patient has been showing significant improvement on presentation. PT evaluation recommended ADDY for patient, she will be sent to TCU for further diuresis as well as rehabilitation for deconditioning. In terms of COPD; she was maintained on 2L O2 via NC and did not demonstrate any signs or symptoms of COPD exacerbation. Morning prior to discharge to TCU, patient was seen and examined this morning at bedside. No acute events reported overnight. Patient reports breathing has significantly improved since admission. Denies chest pain upon evaluation this morning, denies abdominal pain, n/v/d/c, she reports she is tolerating diet well. Patient also reports urinating w/o any difficulty or complaints. In TCU, it was noticed that patient was having worsening complaints of shortness of breath. She was subsequently started on nightly BiPAP, to which she was not compliant due to discomfort of mask. Patient was educated on necessity of BiPAP use, and pulmonology was consulted. Chest x-ray Showed worsening opacification, however unable to rule out infiltrate vs pleural effusion. CT chest was ordered; which confirmed worsening plural effusion, and did not reveal any infiltrate. Her Lasix were increased, steroid taper started, and revatio as well as diamox were added. For the remainder of the hospitalization, patient reported significant improvement in respiratory status, she also made significant improvement in rehabilitation. She is tolerating physical therapy well, however it was recommended that patient continue outpatient physical therapy at rehab facility. Prior to discharge, arrangements were made for visiting doctor as well as visiting nurse, through [facility] (Dr. Lo's group). Patient was instructed on importance of BiPAP use at night, arrangements were made for patient to receive BiPAP at home. Morning prior to discharge, patient was seen and examined at bedside. She reported that from time of admission to time of discharge her respiratory status had improved significantly, she denied any chest pain, and only noted very mild shortness of breath. She denied abdominal pain, N/V/D/C, reported good urination. Patient is tolerating diet well moving her bowels appropriately. Throughout her hospitalization, patient was educated on her disease, treatment, and prognosis. She was educated on appropriate follow up as well as lifestyle modification. Patient was advised to eat a low-salt diet monitor her weight daily. Do you see instructions were reviewed, medications were reviewed, follow up appointments were reviewed, and patient verbalized understanding of the plan moving forward. Patient is agreeable for continued physical therapy at [facility] facility. Patient is medically optimized for discharge at this time. - Date & Time of H&P Date of H&P: 06/26/18 Time of H&P: 01:05 Discharge Exam - Head Exam Head Exam: ATRAUMATIC, NORMOCEPHALIC - Eye Exam Eye Exam: EOMI, Normal appearance, PERRL - ENT Exam ENT Exam: Mucous Membranes Moist - Respiratory Exam Additional comments: Poor airmovement Diffuse rales Diminished breath sounds in left lower lobe improving; some crackles noted - Cardiovascular Exam Cardiovascular Exam: +S1, +S2, Systolic Murmur (LSB Grade 2) - GI/Abdominal Exam GI & Abdominal Exam: Normal Bowel Sounds, Soft, Unremarkable. absent: Tenderness - Extremities Exam Additional comments: 1+ pitting edema BL significant improved Distal pulses 1+ Bilaterally - Neurological Exam Neurological exam: Alert, CN II-XII Intact, Normal Gait, Oriented x3 - Psychiatric Exam Psychiatric exam: Normal Affect, Normal Mood - Skin Skin Exam: Dry, Intact, Normal Color, Warm Discharge Plan - Discharge Medications Prescriptions: Ambrisentan [Letairis] 5 mg PO DAILY #30 tablet Polyethylene Glycol 3350 [Miralax] 17 gm PO DAILY PRN #30 ml PRN Reason: Constipation predniSONE [predniSONE Tab] 10 mg PO DAILY 2 Days #2 tab - Follow Up Plan Condition: GOOD Disposition: REHAB FACILITY/REHAB UNIT Patient education suggested?: Yes Instructions: Heart Failure, Adult (DC), Shortness of Breath (Dyspnea) (DC), Pulmonary Hypertension, Adult (DC), Breathing Exercises Additional Instructions: Please follow up with your primary care, Dr. Lo, with [facility] within 3-5 days of discharge from the subacute rehab. They do home visits and will visit you at your home. They will set up a pharmacy to deliver to you or your neighbors home. You will NEED TO USE BIPAP AT NIGHT. You have been set up to have a bipap at your home. Continue other medications as prescribed. Please Continue to take: Albuterol/Ipratropium nebulizer - every 2 hours NEEDED for SHORTNESS OF BREATH Letairis 5mg daily Revatio 20mg daily Brovana /Aformoterol nebulized - twice a day Budesonide / Pulmicort nebulized - twice a day Prednisone 10mg - daily for 2 days (06/26 and 06/27) Montelukast 10mg nightly Coreg 3.125 mg twice a day Lasix 20mg Daily Potassium Chloride 10meq daily Magnesium Oxide 400mg daily Protonix 40mg nightly Miralax 17gm daily prn constipation Lac-Hydrin Cream - Apply to bilateral lower extremity to dry skin as needed Aspirin 81mg - daily If your symptoms return, please go to the nearest emergency department. Referrals: Ashly Lo MD [Staff Provider] - Shaheed Handy MD [Staff Provider] - Ban Valentine MD [Staff Provider] -
[2018-06-25 16:18] VITALS: BP 100/58; PULSE 68; RESP 20; TEMP 98.4; O2SAT 94
== END 2018-06-25 22:23 | DRG 292 ==
LOC: TRCU 19:12
PROVIDERS: ADMIT Hospitalist; ATTEND Hospitalist
PROC: F07Z9FZ Gait Training/Functional Ambulation Treatment using Assistive, Adaptive, Supportive or Protective Equipment (ICD-10-PCS; principal; 2018-06-18)
PROC: F07M6ZZ Therapeutic Exercise Treatment of Musculoskeletal System - Whole Body (ICD-10-PCS; 2018-06-18)
PROC: F08Z2ZZ Grooming/Personal Hygiene Treatment (ICD-10-PCS; 2018-06-18)
PROC: F08Z1ZZ Dressing Techniques Treatment (ICD-10-PCS; 2018-06-18)
PROC: F08Z0ZZ Bathing/Showering Techniques Treatment (ICD-10-PCS; 2018-06-18)
PROC: F08Z4ZZ Home Management Treatment (ICD-10-PCS; 2018-06-18)
DX: I11.0 Hypertensive heart disease with heart failure (principal); J96.11 Chronic respiratory failure with hypoxia; J98.11 Atelectasis; L03.119 Cellulitis of unspecified part of limb; I50.33 Acute on chronic diastolic (congestive) heart failure; I50.82 Biventricular heart failure; I42.9 Cardiomyopathy, unspecified; I27.29 Other secondary pulmonary hypertension; G47.30 Sleep apnea, unspecified; J44.9 Chronic obstructive pulmonary disease, unspecified; K59.00 Constipation, unspecified; Z87.891 Personal history of nicotine dependence; Z99.81 Dependence on supplemental oxygen

== ENCOUNTER 2018-07-10 15:14 | Inpatient (IN) | payer MEDICARE, OTHER ==
[2018-07-10] MEDS ORDERED: Metoprolol 1 mg/ml Inj IVP STA (15:38)
--- NOTE | 2018-07-10 15:55 | ED PDOC ---
Arrival/HPI - General Chief Complaint: Chest Pain Time Seen by Provider: 07/10/18 15:36 Historian: Patient - History of Present Illness Narrative History of Present Illness (Text): 07/10/18 15:55 82 year old female, with past medical history of blood thinners, COPD, pulmonary hypertension, diastolic CHF, and cellulitis, presents to emergency department via triage complaining of chest pain for the past hour. Patient reports heart palpitations for the past three days. Patient states she has been unable to eat. Patient denies any fevers, headache, dizziness, shortness of breath, cough, abdominal pain, nausea, vomiting, diarrhea, back pain, neck pain, or any other complaints. Time/Duration: 1 hour Symptom Onset: Gradual Symptom Course: Unchanged Activities at Onset: Light Context: Home Past Medical History - Provider Review Nursing Documentation Reviewed: Yes - Infectious Disease Hx of Infectious Diseases: None - Cardiac Hx Cardiac Disorders: Yes Hx Congestive Heart Failure: Yes Hx Hypertension: Yes - Pulmonary Hx Respiratory Disorders: Yes Hx Chronic Obstructive Pulmonary Disease (COPD): Yes - Neurological Hx Neurological Disorder: No - HEENT Hx HEENT Disorder: No - Renal Hx Renal Disorder: No - Endocrine/Metabolic Hx Endocrine Disorders: No - Hematological/Oncological Hx Blood Disorders: No - Integumentary Hx Dermatological Disorder: Yes Other/Comment: cellulitis/dermatitis ble flakey, dry, edmatous, reddened skin with pitting edema, dry toenails, slight redness to buttocks no openings - Musculoskeletal/Rheumatological Hx Musculoskeletal Disorders: No - Gastrointestinal Hx Gastrointestinal Disorders: Yes Other/Comment: pt denies constipation - Genitourinary/Gynecological Hx Genitourinary Disorders: No - Psychiatric Hx Psychophysiologic Disorder: No Hx Substance Use: No Family/Social History - Physician Review Nursing Documentation Reviewed: Yes Family/Social History: Unknown Family HX Smoking Status: Never Smoked Hx Alcohol Use: No Hx Substance Use: No Allergies/Home Meds Allergies/Adverse Reactions: Allergies Penicillins Allergy (Verified 06/23/18 06:17) RASH shellfish derived Allergy (Verified 06/23/18 06:17) RASH iv dye Allergy (Uncoded 05/08/18 18:06) RASH flu shot Adverse Reaction (Uncoded 06/15/18 13:56) FATIGUE pneumonia vaccine Adverse Reaction (Uncoded 06/15/18 13:56) FATIGUE Home Medications: Home Meds Medication Instructions Recorded Confirmed RX: Carvedilol [Coreg] 3.125 mg PO BID 06/15/18 07/10/18 RX: Potassium Chloride [K-Dur 20 10 meq PO DAILY 06/15/18 07/10/18 mEq ER Tab] Review of Systems - Physician Review All systems were reviewed & negative as marked: Yes - Review of Systems Constitutional: absent: Fevers Respiratory: absent: SOB, Cough, Wheezing Cardiovascular: Chest Pain, Palpitations Gastrointestinal: absent: Abdominal Pain, Diarrhea, Nausea, Vomiting Genitourinary Female: absent: Frequency, Hematuria, Urine Output Changes Musculoskeletal: absent: Back Pain, Neck Pain Skin: absent: Rash Neurological: absent: Headache, Dizziness Physical Exam Vital Signs Reviewed: Yes Vital Signs Temp Pulse BP 07/10/18 15:14 99.5 F 111 H 106/61 Temperature: Afebrile Blood Pressure: Normal Pulse: Regular Respiratory Rate: Normal Appearance: Positive for: Well-Appearing, Non-Toxic, Comfortable Pain Distress: None Mental Status: Positive for: Alert and Oriented X 3 - Systems Exam Head: Present: Atraumatic, Normocephalic Pupils: Present: PERRL Extroacular Muscles: Present: EOMI Conjunctiva: Present: Normal Mouth: Present: Moist Mucous Membranes Neck: Present: Normal Range of Motion Respiratory/Chest: Present: Decreased Breath Sounds (decreased in anterior lung rico), Other (irregularly irregular breath). No: Respiratory Distress, Accessory Muscle Use Cardiovascular: Present: Normal S1, S2. No: Murmurs Abdomen: No: Tenderness, Distention, Peritoneal Signs Back: Present: Normal Inspection Upper Extremity: Present: Normal Inspection. No: Cyanosis, Edema Lower Extremity: Present: Edema (+3 pitting edema ) Neurological: Present: GCS=15, CN II-XII Intact, Speech Normal Skin: Present: Warm, Dry, Normal Color. No: Rashes Psychiatric: Present: Alert, Oriented x 3, Normal Insight, Normal Concentration Medical Decision Making ED Course and Treatment: 07/10/18 16:06 Impression: 82 year old female presents to emergency department complaining of chest pain f or the past hour and heart palpitations for the past 3 days. Differential Diagnosis included but are not limited to: -- CHF exacerbation --Atrial arrythmia(Rapid afib) Plan: -- EKG -- Labs -- Chest X-ray -- Lopressor --Lasix -- Urinalysis -- Reassess and disposition Prior Visits: Notes and results from previous visits were reviewed. Progress Notes: 07/10/18 17:16 Labs reviewed with negative troponin and elevated elevated BNP noted. Patient given Lopressor in effort to lower HR as well as cardiomegaly and vascular congestion seen on CXR. Spoke to PCP who accepts patient onto telemetry service. - Lab Interpretations Lab Results: 07/10/18 15:55 07/10/18 15:55 Lab Results 07/10/18 15:55: Sodium 138, Potassium 4.2, Chloride 98, Carbon Dioxide 37 H, Anion Gap 7 L, BUN 40 H, Creatinine 1.0, Est GFR ( Amer) > 60, Est GFR (Non-Af Amer) 53, Random Glucose 145 H, Calcium 9.1, Magnesium 2.1, Total Bilirubin 0.4, AST 28, ALT 48, Alkaline Phosphatase 58, Troponin I < 0.01 D, NT-Pro-B Natriuret Pep 4950 H, Total Protein 6.4, Albumin 3.6, Globulin 2.8, Albumin/Globulin Ratio 1.3 07/10/18 15:55: PT 11.2, INR 0.98, APTT 28.6 07/10/18 15:55: WBC 7.0, RBC 3.82, Hgb 11.5 L, Hct 38.9, MCV 101.8, MCH 30.1, MCHC 29.6 L, RDW 15.8 H, Plt Count 218, MPV 10.1, Gran % 82.6 H, Lymph % (Auto) 12.7 L, Wood % (Auto) 3.0, Eos % (Auto) 1.6, Baso % (Auto) 0.1, Gran # 5.78, Lymph # (Auto) 0.9 L, Wood # (Auto) 0.2, Eos # (Auto) 0.1, Baso # (Auto) 0.01 I have reviewed the lab results: Yes - RAD Interpretation Narrative RAD Interpretations (Text): 07/10/18 16:38 Chest X-ray, reviewed by radiologist: IMPRESSION: Cardiomegaly. Hypoinflation. Small bilateral pleural effusions and associated consolidations. Pulmonary venous congestion. Radiology Orders: 07/10/18 15:38 CHEST PORTABLE [RAD] Stat Bag Bundler: Radiologist - EKG Interpretation EKG Interpretation (Text): 07/10/18 16:41 EKG: Ordered, reviewed, and independently interpreted the EKG. Rate : 111 BPM Rhythm : irregularly irregular rhythm Interpretation : irregularly irregular rhythm with RVR Interpreted by ED Physician: Yes Type: 12 lead EKG - Medication Orders Current Medication Orders: Discontinued Medications Metoprolol Tartrate (Lopressor) 5 mg IVP STAT STA Stop: 07/10/18 15:39 - Scribe Statement The provider has reviewed the documentation as recorded by the Scribe Breanna Bonds All medical record entries made by the Scribe were at my direction and personally dictated by me. I have reviewed the chart and agree that the record accurately reflects my personal performance of the history, physical exam, medical decision making, and the department course for this patient. I have also personally directed, reviewed, and agree with the discharge instructions and disposition. Disposition/Present on Arrival - Present on Arrival Any Indicators Present on Arrival: No History of DVT/PE: No History of Uncontrolled Diabetes: No Urinary Catheter: No History of Decub. Ulcer: No History Surgical Site Infection Following: None - Disposition Have Diagnosis and Disposition been Completed?: Yes Diagnosis: CHF (congestive heart failure) Disposition: HOSPITALIZED Disposition Time: 17:00 Patient Plan: Admission Patient Problems: Current Active Problems Problem Status Onset CHF (congestive heart failure) Acute Condition: GUARDED
--- NOTE | 2018-07-10 16:08 | RAD ---
HISTORY: chest pain COMPARISON: Chest x-ray performed 06/20/18 TECHNIQUE: Chest, one view. FINDINGS: LUNGS: Hypoinflation. Small bilateral pleural effusions and associated consolidations. Mild pulmonary venous congestion. No definite pneumothorax. Please note that chest x-ray has limited sensitivity for the detection of pulmonary masses. CARDIOVASCULAR: Cardiomegaly. Atherosclerotic calcifications of the aortic knob. OSSEOUS STRUCTURES: Osseous demineralization. Degenerative changes. VISUALIZED UPPER ABDOMEN: Unremarkable. OTHER FINDINGS: None. IMPRESSION: Cardiomegaly. Hypoinflation. Small bilateral pleural effusions and associated consolidations. Pulmonary venous congestion.
[2018-07-10 16:14] LABS: ALB/GLOB RATIO 1.3 (1.1-1.8); ALBUMIN 3.6 g/dL (3.0-4.8); ALT/SGPT 48 U/L (7-56); AST/SGOT 28 U/L (14-36); BLOOD UREA NITROGEN 40 mg/dL (7-21); CALCIUM 9.1 mg/dL (8.4-10.5); GFR NON-AFRICAN AMERICAN 53
[2018-07-10 16:23] LABS: B-TYPE NATRIURETIC PEPTIDE 4950 pg/mL (0-450); TROPONIN I < 0.01 ng/mL
[2018-07-10 16:29] LABS: INR 0.98; PARTIAL THROMBOPLASTIN TIME 28.6 Seconds (25.1-36.5); PROTHROMBIN TIME 11.2 SECONDS (9.4-12.5)
[2018-07-10] MEDS: Sodium Chloride 0.9% 500 ML IV SCH ×2 (16:40→23:19)
[2018-07-10 17:10] LABS: BASO # 0.01 K/mm3 (0.0-2.0); BASO % 0.1 % (0.0-3.0); EOS # 0.1 (0.0-0.7); EOS % 1.6 % (1.5-5.0); GRAN # 5.78 (1.4-6.5); GRAN % 82.6 % (50.0-68.0); HEMOGLOBIN 11.5 g/dL (12.0-16.0); LYMPH # 0.9 (1.2-3.4); LYMPH % 12.7 % (22.0-35.0); MEAN CELL VOLUME 101.8 fl (80.0-105.0); MEAN CORPUSCULAR HEMOGLOBIN 30.1 pg (25.0-35.0); MEAN CORPUSCULAR HGB CONC 29.6 g/dl (31.0-37.0); MEAN PLATELET VOLUME 10.1 fl (7.0-11.0); MONO # 0.2 (0.1-0.6); RBC 3.82 10^6/uL (3.5-6.1); RED CELL DISTRIBUTION WIDTH 15.8 % (11.5-14.5)
--- NOTE | 2018-07-10 17:52 | CP.PCM.HP ---
History of Present Illness - History of Present Illness History of Present Illness: Randall Montoya PGY1, History and Physical for Dr Loyd Pt is an 82yo female with a PMH of atrial fibrillation, COPD, pulmonary HTN, diastolic CHF, who presents to the emergency room complaining of 8/10 crushing substernal chest pain which feels like "something is laying across my chest". Pt states the pain came on while she was working with physical therapy. The pain is not changed with position and is not pleuritic. Pt denies ever feeling pain like this before. The pain is located in the middle of her chest and has improved since she has gotten to the hospital. She states that she has not felt well for the past 3 days and has experienced palpitations. Nothing makes the pain better or worse. Pt denies sick contacts, nausea, vomiting, diarrhea or constipation. A 12 point ROS was obtained and added to the HPI where appropriate. PMH: atrial fibrillation, COPD, pulmonary HTN, diastolic CHF PSH: denies FH: mother 83 , no health problems. Father 81 , no health problems. SH: former smoker quit 20 years ago, denies alcohol, denies illicit drugs. Allergies: PNC, shellfish Present on Admission - Present on Admission Any Indicators Present on Admission: No Review of Systems - Review of Systems Review of Systems: a 12 point ROS was obtained and added to the HPI where appropriate Past Patient History - Infectious Disease Hx of Infectious Diseases: None - Past Social History Smoking Status: Never Smoked - CARDIAC Hx Cardiac Disorders: Yes Hx Congestive Heart Failure: Yes Hx Hypertension: Yes - PULMONARY Hx Respiratory Disorders: Yes Hx Chronic Obstructive Pulmonary Disease (COPD): Yes - NEUROLOGICAL Hx Neurological Disorder: No - HEENT Hx HEENT Problems: No - RENAL Hx Chronic Kidney Disease: No - ENDOCRINE/METABOLIC Hx Endocrine Disorders: No - HEMATOLOGICAL/ONCOLOGICAL Hx Blood Disorders: No - INTEGUMENTARY Hx Dermatological Problems: Yes Other/Comment: cellulitis/dermatitis ble flakey, dry, edmatous, reddened skin with pitting edema, dry toenails, slight redness to buttocks no openings - MUSCULOSKELETAL/RHEUMATOLOGICAL Hx Musculoskeletal Disorders: No - GASTROINTESTINAL Hx Gastrointestinal Disorders: Yes Other/Comment: pt denies constipation - GENITOURINARY/GYNECOLOGICAL Hx Genitourinary Disorders: No - PSYCHIATRIC Hx Psychophysiologic Disorder: No Hx Substance Use: No - SURGICAL HISTORY Hx Surgeries: No Meds Allergies/Adverse Reactions: Allergies Allergy/AdvReac Type Severity Reaction Status Date / Time Penicillins Allergy RASH Verified 06/23/18 06:17 shellfish derived Allergy RASH Verified 06/23/18 06:17 iv dye Allergy RASH Uncoded 05/08/18 18:06 flu shot AdvReac FATIGUE Uncoded 06/15/18 13:56 pneumonia vaccine AdvReac FATIGUE Uncoded 06/15/18 13:56 Physical Exam - Head Exam Head Exam: ATRAUMATIC, NORMOCEPHALIC - Eye Exam Eye Exam: EOMI - ENT Exam ENT Exam: Mucous Membranes Moist - Neck Exam Neck exam: Positive for: Full Rom - Respiratory Exam Respiratory Exam: Clear to Auscultation Bilateral, NORMAL BREATHING PATTERN. absent: Accessory Muscle Use, Respiratory Distress - Cardiovascular Exam Cardiovascular Exam: Tachycardia, Irregular Rhythm, +S1, +S2. absent: Diastolic murmur, Systolic Murmur - GI/Abdominal Exam GI & Abdominal Exam: Normal Bowel Sounds, Soft. absent: Tenderness - Extremities Exam Extremities exam: Positive for: full ROM, pedal edema, pedal pulses present. Negative for: calf tenderness - Neurological Exam Neurological exam: Alert, Oriented x3 - Psychiatric Exam Psychiatric exam: Normal Affect, Normal Mood - Skin Skin Exam: Dry, Intact, Warm Results - Vital Signs Recent Vital Signs: Last Vital Signs Temp 99.5 F 07/10/18 15:14 Pulse 98 H 07/10/18 16:57 Resp 18 07/10/18 16:57 BP 97/56 L 07/10/18 16:57 Pulse Ox 100 07/10/18 16:57 - Labs Result Diagrams: 07/10/18 15:55 07/10/18 15:55 Labs: Laboratory Results - last 24 hr 07/10/18 07/10/18 07/10/18 15:55 15:55 15:55 WBC 7.0 RBC 3.82 Hgb 11.5 L Hct 38.9 MCV 101.8 MCH 30.1 MCHC 29.6 L RDW 15.8 H Plt Count 218 MPV 10.1 Gran % 82.6 H Lymph % (Auto) 12.7 L Isabella % (Auto) 3.0 Eos % (Auto) 1.6 Baso % (Auto) 0.1 Gran # 5.78 Lymph # (Auto) 0.9 L Isabella # (Auto) 0.2 Eos # (Auto) 0.1 Baso # (Auto) 0.01 PT 11.2 INR 0.98 APTT 28.6 Sodium 138 Potassium 4.2 Chloride 98 Carbon Dioxide 37 H Anion Gap 7 L BUN 40 H Creatinine 1.0 Est GFR ( Amer) > 60 Est GFR (Non-Af Amer) 53 Random Glucose 145 H Calcium 9.1 Magnesium 2.1 Total Bilirubin 0.4 AST 28 ALT 48 Alkaline Phosphatase 58 Troponin I < 0.01 D NT-Pro-B Natriuret Pep 4950 H Total Protein 6.4 Albumin 3.6 Globulin 2.8 Albumin/Globulin Ratio 1.3 Assessment & Plan - Assessment and Plan (Free Text) Assessment: Pt is an 82yo female with a PMH of atrial fibrillation, COPD, pulmonary HTN, diastolic CHF, who presents to the emergency room complaining of 8/10 crushing substernal chest pain which feels like "something is laying across my chest". Plan: Chest Pain, ACS rule out - ASA - TSH and T4 stat - trop x1 NEGATIVE, continue to trend - mg, phos - venous doppler BL LE - HA1C - Lipid panel in the AM - admit to tele - lipitor 40 with dinner - supplemental O2 - PT - OT - cardio consulted, Dr Handy Atrial Fibrillation, RVR - therapeutic lovenox, 1mg/kg. 60mg SC daily - cardizem drip 5mg/hr - INR 0.98 Hypotension midodrine 2.5 PO Q8 COPD - hold duonebs at this time, due to pt heart rate - brovana Diastolic CHF - EF 68.8 05/06/18 - lasix 20 IVP q12 Pulmonary HTN - RVSP 145 mmHg - continue sildenafil 20 TID Ppx - protonix 40mg - SCDs Pt seen, examined, assessment and plan discussed with Dr Evert Montoya PGY1, Internal Medicine Resident - Date & Time Date: 07/10/18 Time: 18:42
[2018-07-10] MEDS ORDERED: diltiaZEM IVPB 100mg in NS 100 ML IV PRN ×2 (18:14→19:10)
[2018-07-10] MEDS ORDERED: Enoxaparin 60 mg Syringe SC STA (18:20)
--- NOTE | 2018-07-10 19:09 | US ---
HISTORY: Leg pain and swelling. Evaluate for DVT PHYSICIAN(S): Shaheed Burden MD. TECHNIQUE: Duplex sonography and color-flow Doppler with graded compression were used to evaluate the deep venous systems of both lower extremities. The exam is very limited by edema. The tibial veins are not well seen FINDINGS: The visualized deep venous systems of both lower extremities are sonographically normal and compressible. Normal wave forms and augmentation are seen. There is no sonographic evidence for deep venous thrombosis in the visualized segments of both lower extremities. IMPRESSION: No sonographic evidence for deep venous thrombosis in the visualized segments of both lower extremities. Limited study.
--- NOTE | 2018-07-10 19:50 | CARD ---
APPROVED REPORT Date of service: 07/10/2018 EKG Measurement Heart [id number] <Conclusion> Atrial fibrillation with rapid ventricular response Anterolateral infarct, age undetermined Abnormal ECG
[2018-07-10 23:25] LABS: TROPONIN I 0.01 ng/mL
[2018-07-11 04:25] LABS: HEMOGLOBIN 10.7 g/dL (12.0-16.0); MEAN CELL VOLUME 101.9 fl (80.0-105.0); MEAN CORPUSCULAR HEMOGLOBIN 29.7 pg (25.0-35.0); MEAN CORPUSCULAR HGB CONC 29.2 g/dl (31.0-37.0); MEAN PLATELET VOLUME 9.6 fl (7.0-11.0); RBC 3.6 10^6/uL (3.5-6.1); RED CELL DISTRIBUTION WIDTH 15.8 % (11.5-14.5); WHITE BLOOD COUNT 6.8 10^3/uL (4.5-11.0)
[2018-07-11 04:35] LABS: ALB/GLOB RATIO 1.2 (1.1-1.8); ALBUMIN 3.2 g/dL (3.0-4.8); BILIRUBIN,DIRECT 0.3 mg/dL (0.0-0.4); CALCIUM 8.6 mg/dL (8.4-10.5)
[2018-07-11 04:45] LABS: TROPONIN I 0.02 ng/mL
[2018-07-11] MEDS: Pantoprazole 40 mg EC Tab PO SCH (05:40)
[2018-07-11] MEDS ORDERED: Pantoprazole 40 mg EC Tab PO SCH (06:00)
[2018-07-11] MEDS: Sodium Chloride 0.9% 500 ML IV SCH ×2 (06:20→16:39)
[2018-07-11] MEDS: Arformoterol 15 mcg/2 ml Inh Sol IH SCH ×3 (08:01→20:01)
[2018-07-11] MEDS: Enoxaparin 60 mg Syringe SC SCH ×2 (08:50→21:52)
[2018-07-11] MEDS: Sildenafil 20 MG TAB PO SCH ×3 (09:08→17:57)
[2018-07-11] MEDS: AMBRISENTAN 5 MG PO SCH (11:04)
[2018-07-11 17:11] LABS: FREE T4 0.81 ng/dL (0.78-2.19); T4 5.5 ug/dL (5.5-11.0)
--- NOTE | 2018-07-11 20:34 | CARD ---
APPROVED REPORT Date of service: 07/11/2018 EKG Measurement Heart [id number] <Conclusion> Atrial fibrillation with rapid ventricular response Low voltage QRS Septal infarct, age undetermined Abnormal ECG
--- NOTE | 2018-07-11 21:10 | PN ---
DATE: 07/11/2018 SUBJECTIVE: The patient is seen. The patient is lying in the bed. The patient is alert, awake, responsive according to the nurses' notes. The patient's Cardizem drips could be started because of low blood pressure. PHYSICAL EXAMINATION: VITAL SIGNS: T-max 98.3, 98.7. Telemetry shows atrial fibrillation, heart rate 84, 112, 109, 103, 106. Blood pressure over the last 24 hours 94/57, 98/59, 110/70, 100/57, 106/57. Respirations 18. O2 saturation on nasal supplemental oxygen 92% to 98%. Intake/output not documented correctly. HEENT: Head: Normocephalic, atraumatic. HEENT examination shows pinkish conjunctivae, anicteric sclerae. No oropharyngeal lesion. NECK: No neck rigidity. CHEST: Kyphosis. LUNGS: Shows decreased breath sounds at the bases, left more than the right. Positive rhonchi noted. CARDIOVASCULAR: S1, S2; irregular rhythm. ABDOMEN: Soft. Positive bowel sounds. No palpable hepatosplenomegaly noted. GENITALIA: Female. RECTAL: Deferred. EXTREMITIES: Show positive pitting edema of the lower extremities. MUSCULOSKELETAL: Examination shows body mass index of 26. NEUROLOGIC: The patient is alert, awake, responsive. Gait examination not tested. DIAGNOSTICS: On 07/11/2018, WBC 6.8, hemoglobin and hematocrit 10.7 and 36.7, platelets 202. Granulocytes yesterday was 83% segs. PT/PTT normal. Sodium 137, potassium 4.2, chloride 98, CO2 of 36, anion gap 7, BUN 14, creatinine 1.1, GFR 48, glucose 91, calcium 8.6, phosphorus 2.7, magnesium 2. LFTs are normal. Troponin all 3 sets are negative. Cholesterol 160, LDL is 88, HDL 51. The patient had a venous Doppler done, which was reviewed which was negative for DVT. Chest x-ray shows bilateral pleural effusion with associated consolidation, mild pulmonary venous congestion, cardiomegaly noted. Chest x-ray shows cardiomegaly. IMPRESSION: 1. Chest pain. 2. 3. Metabolic alkalosis. 4. Prerenal kidney injury. 5. Hyperlipidemia. 6. Atrial fibrillation with rapid ventricular response. 7. Age indeterminate anterolateral infarcts. 8. Cardiomegaly. 9. Bilateral pleural effusion with consolidation. 10. Pulmonary vascular congestion. 11. Cardiomegaly. 12. Severe pulmonary hypertension with left ventricular ejection fraction of 68% and right ventricular systolic pressure of 145 mmHg. 13. Grade 3 reversible restrictive diastolic dysfunction. 14. Moderately hypertrophied right ventricle and severely dilated right ventricle with [id number] reduced right ventricular systolic function. 15. Dilated left and right atrium. 16. Mild aortic stenosis versus aortic sclerosis and moderately sclerotic aortic valve. 17. Moderate to severe mitral regurgitation. 18. Chronic obstructive pulmonary disease. 19. Right-sided diastolic congestive heart failure with exacerbation. 20. Gait dysfunction. 21. Bilateral lower extremity venous stasis. 22. Constipation. PLAN: At this time, the patient has been ordered repeat labs. Current consultation cardiology, TCU evaluation ordered. The patient is resumed on Letairis 5 mg daily. At present, the patient is to be continued on above therapeutic intervention. The patient's further management will depend upon the patient's clinical condition, hemodynamic status and as per the patient's response to therapeutic intervention, as per the patient's diagnostic test results, and as per recommendation by all the physicians involved in the care of the patient. Dictated and electronically signed, not read. Jonah Loyd MD
[2018-07-12] MEDS: Pantoprazole 40 mg EC Tab PO SCH (06:07)
[2018-07-12] MEDS: Arformoterol 15 mcg/2 ml Inh Sol IH SCH ×2 (07:52→19:09)
[2018-07-12 08:03] LABS: HEMOGLOBIN 10.8 g/dL (12.0-16.0); MEAN CELL VOLUME 102.8 fl (80.0-105.0); MEAN CORPUSCULAR HEMOGLOBIN 30.3 pg (25.0-35.0); MEAN CORPUSCULAR HGB CONC 29.4 g/dl (31.0-37.0); MEAN PLATELET VOLUME 9.6 fl (7.0-11.0); RBC 3.57 10^6/uL (3.5-6.1); RED CELL DISTRIBUTION WIDTH 15.9 % (11.5-14.5); WHITE BLOOD COUNT 7.3 10^3/uL (4.5-11.0)
[2018-07-12 08:20] LABS: ALB/GLOB RATIO 1.2 (1.1-1.8); ALBUMIN 3.2 g/dL (3.0-4.8); BILIRUBIN,DIRECT 0.2 mg/dL (0.0-0.4)
[2018-07-12] MEDS: Sildenafil 20 MG TAB PO SCH ×3 (09:01→17:55)
[2018-07-12] MEDS: Enoxaparin 60 mg Syringe SC SCH ×2 (09:01→21:18)
[2018-07-12] MEDS: AMBRISENTAN 5 MG PO SCH (10:00)
--- NOTE | 2018-07-12 20:06 | PN ---
DATE: 07/12/2018 SUBJECTIVE: The patient is seen in room 275, bed 2. The patient is out of bed to chair in the chair, but the patient is not keeping her legs elevated. The patient does have SCDs on, but the patient's legs are not elevated. The patient still has significant pitting edema of the lower extremity. The patient does not complain of chest pain or shortness of breath at present. PHYSICAL EXAMINATION: VITAL SIGNS: Telemetry shows atrial fibrillation, heart rate 96, 84, 93, 94. T-max 98.6, blood pressure is gone up to 125/61, 154/65, 131/72, respiration 18, O2 sat is 92% to 99% on oxygen supplementation 2-4 liters. HEENT: Head is normocephalic, atraumatic. HEENT examination shows pinkish conjunctivae. Anicteric sclerae. No oropharyngeal lesion. NECK: No neck rigidity. CHEST: Kyphosis. CARDIOPULMONARY: S1, S2, irregular rhythm. Positive systolic murmur at left sternal border, right second intercostal space, left second intercostal space. LUNGS: Decreased breath sound at the bases. Positive creps, crackles noted. ABDOMEN: Soft. Positive bowel sounds. No palpable hepatosplenomegaly. GENITALIA: Female. RECTAL: Deferred. EXTREMITIES: Shows positive pitting edema of the lower extremity. Positive SCDs. MUSCULOSKELETAL: Shows a body mass index of 27. NEUROLOGIC: The patient is alert, awake, responsive, is able to move upper and lower extremity without assistance. Gait examination is not tested. DIAGNOSTICS: On 07/12/2018, WBC 7.2, hemoglobin and hematocrit 10.8, 37, platelets 198. Sodium 137, potassium 4.2, chloride 98, CO2 37, anion gap 7, BUN down to 38, creatinine 1.1, GFR 48, glucose 94, hemoglobin A1c 5.7, calcium 9.0, phosphorus 3.8, magnesium 2.0. LFTs are normal. Troponin all three sets are negative. Thyroid panel is normal. Cholesterol 160, LDL 88. Hemoglobin A1c 5.7. Chest x-ray, venous Doppler of the lower extremity reviewed. EKG from this hospitalization reviewed. According to the patient's nurse, the patient has been refusing medications and appears to be depressed. The patient refused medication. He refused breakfast, refusing all the medicines. IMPRESSION: 1. New-onset atrial fibrillation with rapid ventricular response. 2. Chest pain. 3. Palpitation. 4. Questionable depression. 5. Noncompliance with refusal to take medications and refusal to eat. 6. Status post hypotension. 7. Hypoxemia. 8. Atrial fibrillation with rapid ventricular response. 9. New onset atrial fibrillation. 10. Normocytic anemia. 11. Granulocytosis. 12. Mild metabolic alkalosis. 13. Mild prerenal kidney injury. 14. Questionable unstable angina. 15. History of severe pulmonary hypertension. 16. Hyperlipidemia. 17. Age-indeterminate anterolateral infarct. 18. Cardiomegaly. 19. Bilateral pleural effusion with consolidation and pulmonary vascular congestion and cardiomegaly. 20. Severe pulmonary hypertension with left ventricular ejection fraction of 68% and right ventricular systolic pressure of 145 mmHg. 21. Grade 3 reversible restrictive diastolic dysfunction. 22. Moderate right ventricular hypertrophy and severely dilated right ventricle with moderate to severely reduced right ventricular systolic function. 23 Dilated left and right atrium. 24. Mild aortic stenosis versus aortic sclerosis and moderately sclerotic aortic valve. 25. Moderate to severe mitral regurgitation. 26. Chronic obstructive pulmonary disease. 27. Right-sided diastolic congestive heart failure with acute exacerbation. 28. Gait dysfunction. 29. Bilateral lower extremity venous stasis. 30. Constipation. 31. Poor compliance and noncompliance with refusal to take medication and refusal to eat. 32. Pulmonary hyperinflation with bilateral pleural effusion and consolidation and pulmonary vascular congestion. 33. Degenerative joint disease of the spine. 34. Atrial fibrillation with rapid ventricle response. 35. Age-indeterminate septal infarct. 36. Deconditioning. 37. Gait dysfunction. 38. History of pulmonary hypertension. 39. History of nicotine dependence in the past. 40. Constipation. 41. Hyperlipidemia. 42. Hypotension (resolving). 43. Sacral decubitus ulceration. PLAN: At this time, the patient has been requested a psychiatry evaluation. Repeat labs have been ordered for the morning. Current consultation, Cardiology, Psychiatry, TCU evaluation ordered. RPR ordered. The patient is on Letairis 5 mg daily, Brovana 15 mcg every 12 hours, Cardizem 30 mg p.o. every 6 hours, Colace 100 mg three times a day, Ecotrin 81 mg daily, Cardizem drip could not be ordered because of hypotension, Colace 100 mg three times a day, Ecotrin 81 mg daily, Lasix 20 mg IV, push every 12 hours, Lipitor 40 mg daily, Lovenox 40 mg subcutaneously every 12 hours, ProAmatine 5 mg three times a day, Protonix 40 mg daily, 20 mg three times a day, Singulair 10 mg at bedtime, Tylenol 650 mg p.o. suppository every 6 hours, p.r.n., Zofran 4 mg IV every 4 hours p.r.n., incentive spirometry, oxygen 2 liters. Heart-healthy diet, SCDs, LUCÍA stockings, out of bed, physical therapy, occupational therapy, speech therapy, swallow evaluation ordered. The patient was ordered swallow and speech evaluation because the patient has been refusing to eat. Dictated and electronically signed, not read. Jonah Loyd MD
[2018-07-12 20:28] LABS: FOLATE > 20.0 ng/mL
[2018-07-13] MEDS: Pantoprazole 40 mg EC Tab PO SCH (05:20)
[2018-07-13] MEDS: Arformoterol 15 mcg/2 ml Inh Sol IH SCH ×2 (07:42→19:46)
[2018-07-13 08:03] LABS: ALB/GLOB RATIO 1.2 (1.1-1.8); ALBUMIN 3.2 g/dL (3.0-4.8); ALT/SGPT 44 U/L (7-56); AST/SGOT 19 U/L (14-36); BILIRUBIN,DIRECT 0.3 mg/dL (0.0-0.4); BLOOD UREA NITROGEN 38 mg/dL (7-21); CALCIUM 9.1 mg/dL (8.4-10.5); GFR NON-AFRICAN AMERICAN 60
[2018-07-13 09:38] LABS: ARTERIAL BLOOD GAS HCO3 37.2 mmol/L (21-28); ARTERIAL BLOOD GAS O2 CAPACITY 15.6 mL/dl (16-24); ARTERIAL BLOOD GAS O2 CONTENT 15.6 ML/dl (15-23); ARTERIAL BLOOD GAS O2 SAT 99.7 % (95-98); ARTERIAL BLOOD GAS PH 7.26 (7.35-7.45); ARTERIAL BLOOD GAS TCO2 39.7 mmol.L (22-28)
[2018-07-13 09:39] LABS: ARTERIAL BLOOD GAS PCO2 83 mm/Hg (35-45)
[2018-07-13] MEDS: AMBRISENTAN 5 MG PO SCH (09:56)
[2018-07-13] MEDS ORDERED: levoFLOXacin 750 mg in D5W 150 ML BAG IVPB SCH (10:30)
[2018-07-13] MEDS: Enoxaparin 60 mg Syringe SC SCH (11:18)
[2018-07-13] MEDS: Sildenafil 20 MG TAB PO SCH ×3 (11:19→18:30)
[2018-07-13] MEDS: levoFLOXacin 500 mg in D5W 500 MG/100 ML BAG IVPB SCH (11:37)
[2018-07-13] MEDS: MethylPREDNISolone 40 mg Vial IVP SCH ×2 (11:37→21:34)
--- NOTE | 2018-07-13 11:44 | PN ---
DATE: 07/13/2018 SUBJECTIVE: This morning, the patient became confused, obtunded, pulled IV and oxygen after the patient received nebulizer treatment. The patient was in room 275, bed 2. Patient seen and examined in ICU bed 3 At that time, the patient was ordered a stat ABG. During this interim, the patient was placed on 100% non-rebreather by the patient's nurse because patient is on O2 sat decreased and the patient desaturated to O2 sat of 85%. The patient was placed on 100% non-rebreather mask by the patient's nurse and O2 sat went up to 90s and 95. The patient was unable to tolerate nasal cannula with continuation of desaturation. The patient's nurse was advised to call rapid response and in that interim, the patient had an ABG done on 100% FiO2 which shows pH of 7.26, pCO2 83, pO2 of 258, bicarb 37, saturation of 100%. Patient presently on BIPAP /, Fio2 40% Alert awake responsive, in no distress. OBJECTIVE: VITAL SIGNS: The patient's vital signs in the last 12-24 hours, T-max 97.9-98. Telemetry shows atrial fibrillation, heart rate 85, 92, respirations 19, blood pressure 118/79, 155, O2 sat on 100% non-rebreather 96%. HEENT: Head examination normocephalic, atraumatic. HEENT examination shows pinkish conjunctivae. Anicteric sclerae. No oropharyngeal lesion. NECK: No neck rigidity. Questionable jugular venous distention. CHEST: Kyphosis. LUNGS: Shows decreased air entry. Questionable creps and rhonchi bilaterally. CARDIOVASCULAR: S1, S2, irregular rhythm. Positive systolic murmur left sternal border, right second intercostal space, left second intercostal space. ABDOMEN: Soft. Positive bowel sounds No palpable hepatosplenomegaly. GENITALIA: Female. RECTAL: Deferred. EXTREMITIES: Shows positive swelling and pitting edema of the lower extremity noted. MUSCULOSKELETAL: As per the body mass index. NEUROLOGIC: Examination is limited. Gait examination could not be tested. PSYCHIATRIC: Questionable symptoms of depression since the patient has been refusing medications and treatment. DIAGNOSTICS: ABG; pH of 7.26, pCO2 83, pO2 258, bicarbonate 37, saturation of 100% on 100% non-rebreather. Sodium 38, potassium 4.5, chloride 101, CO2 32, BUN 38, creatinine 0.9, glucose 101, calcium 9.1, phosphorus 3.3, magnesium 1.9. LFTs are normal. IMPRESSION AND PLAN: 1. Severe respiratory acidosis with severe hypercarbia and hypercarbic hypercapnic respiratory failure. 2. Severe symptomatic desaturation and hypoxemia. 3. New onset atrial fibrillation. 4. Hypotension. 5. Mild normocytic anemia. 6. Right-sided diastolic congestive heart failure with severe pulmonary hypertension with right ventricular systolic pressure of 145 mmHg with normal left ventricle ejection fraction. 7. Bilateral lower extremity venous stasis secondary to right-sided diastolic congestive heart failure and pulmonary hypertension. 8. Atrial fibrillation. 9. Hypercarbic respiratory failure, acute with hypercarbia and severe respiratory acidosis. PLAN: At this time, the patient was seen in the interim by Dr. Handy from Cardiology, ICU consult and dye machine operator evaluation was requested. The patient was ordered by Cardiology for a BiPAP. The patient evaluated by the dye machine operator for transfer to ICU. The patient will be continued on the therapeutic intervention as per the MAR which was reviewed. The patient's overall prognosis is guarded. Condition critical. The patient's has been ordered repeat diagnostic data. The patient will be continued on DVT, GI prophylaxis and anticoagulation for atrial fibrillation. The patient will be continued on diuretics. The patient will be continued on all the medications as per the MAR. Patient's prognosis guarded. Condition critical, awaiting transfer to ICU. Dictation electronically signed, not read. Jonah Loyd MD MTDD
[2018-07-13] MEDS: Multi Vitamins 15 mL UD Oral Solution PO SCH (12:10)
--- NOTE | 2018-07-13 12:17 | CON ---
DATE: 07/13/2018 HISTORY OF PRESENT ILLNESS: This is an 82-year-old female with numerous medical issues. Please refer to medical notes for full description of medical history. Psychiatry is following due to depression and the patient's own request to have a psychiatric evaluation. I met with the patient at bedside and she appears tired and a little difficult to arouse and has poor eye contact during my introduction and subsequent interview. However, she is well oriented to month, year, location. The patient does confirm that she is depressed. She denies having any suicidal thoughts or thoughts to harm others. She indicates her sleep is okay, but has noticed symptoms of anhedonia, low energy, low frustration tolerance, indecision, and poor focus. She indicates she just does not know what to do anymore and she is open to starting a medical trial with Lexapro. She denies having any perceptual disturbance, does not appear to be responding to internal stimuli, though she does look preoccupied. There does not appear to be any major behavioral issues, although the patient is not entirely compliant . The patient does appear with constricted affect and she does appear depressed. Her insight and judgment are considered to be fair. PSYCHIATRIC HISTORY: The patient denies having any psychiatric history, denies any suicide attempts, hospitalizations, current outpatient psychiatric care. Vital signs and labs are reviewed. The patient is not currently on any psychiatric medications. IMPRESSION: Depression, not otherwise specified, rule out major depressive disorder, moderate, rule out depression secondary to general medical condition, rule out adjustment disorder with depressive symptoms. RECOMMENDATIONS: At this time, I will start Lexapro 5 mg at bedtime due to the patient's depression. I discussed dosing with the patient, indications, possible side-effects, and therapeutic latency with the patient at bedside and she consents to the trial with this medication. Psychiatry will continue to follow up with the patient to monitor tolerance to this medication, although it is generally very well tolerated. Next followup will be with Psychiatry on 07/14/[address] Calixto. Yadiel Childers MD
[2018-07-13 12:19] LABS: ARTERIAL BLOOD GAS HCO3 36.4 mmol/L (21-28); ARTERIAL BLOOD GAS O2 SAT 99.2 % (95-98); ARTERIAL BLOOD GAS PCO2 74 mm/Hg (35-45); ARTERIAL BLOOD GAS TCO2 38.7 mmol.L (22-28)
--- NOTE | 2018-07-13 13:21 | CON ---
DATE: 07/13/2018 CARDIOLOGY CONSULTATION HISTORY: The patient is an 82-year-old woman, who presents with 2 days of substernal chest discomfort associated with shortness of breath. PAST MEDICAL HISTORY: The patient's past medical history is notable for atrial fibrillation, severe COPD, as well as severe pulmonary hypertension. Her last cardiac evaluation included an echocardiogram in 04/2018, which revealed an ejection fraction of 68%. However, there is severe pulmonary hypertension with an RVSP of 145. In addition, she suffers from mitral regurgitation. She is currently on sildenafil for her pulmonary hypertension at minimal doses at 20 mg t.i.d. In addition, she is on albuterol as well as prednisone. SOCIAL HISTORY: The patient was discharged from a retirement recently. REVIEW OF SYSTEMS: Include pedal edema, no ulcer history, and chronic dyspnea. PHYSICAL EXAMINATION: VITAL SIGNS: Blood pressure is 105/55, the heart rate is in the 80s. NECK: Negative JVD. LUNGS: Decreased breath sounds bilaterally. HEART: Reveals S1, S2. EXTREMITIES: Without edema. EKG shows no acute changes. LABORATORY DATA: The ProBNP is greater than 4000. Troponins are negative. Hemoglobin is 10.8. IMPRESSION: 1. Chest pain consistent with angina. 2. Marked dyspnea. 3. Severe pulmonary hypertension. 4. Chronic obstructive pulmonary disease. 5. Respiratory acidosis. 6. Anemia. 7. Mild congestive heart failure. PLAN: Given these findings, we will start the patient on BiPAP. The patient may benefit from observation in the ICU. I have discussed cardiac catheterization with the patient, and the patient is agreeable. We will proceed with cardiac catheterization in the morning. Shaheed Handy MD
--- NOTE | 2018-07-13 14:59 | CP.PCM.APN ---
Subjective - Date & Time of Evaluation Date of Evaluation: 07/13/18 Time of Evaluation: 10:15 - Subjective Subjective: pt seen at bedside being eval for ICU 2nd to hypoxia Review of Systems - Psychiatric Psychiatric: Confusion Objective - Vital Signs/Intake and Output Vital Signs (last 24 hours): Temp Pulse Resp BP Pulse Ox 97.4 F L 122 H 22 143/89 98 07/13/18 12:00 07/13/18 14:00 07/13/18 12:00 07/13/18 14:00 07/13/18 12:00 Intake and Output: 07/13/18 07/13/18 06:59 18:59 Intake Total 1140 Output Total 9180 Balance -8040 - Medications Medications: Current Medications Acetaminophen (Tylenol 325mg Tab) 650 mg PO Q6 PRN PRN Reason: TEMP>=99.5F Acetaminophen (Tylenol 650 Mg Supp) 650 mg RC Q6H PRN PRN Reason: TEMP>=99.5F Arformoterol Tartrate (Brovana) 15 mcg IH [id number] [facility] Last Admin: 07/13/18 07:42 Dose: 15 mcg Ascorbic Acid (Vitamin C 500 Mg Tab) 500 mg PO BID [facility] Last Admin: 07/13/18 12:10 Dose: Not Given Aspirin (Ecotrin) 81 mg PO DAILY [facility] Last Admin: 07/13/18 12:10 Dose: Not Given Atorvastatin Calcium (Lipitor) 40 mg PO DIN [facility] Last Admin: 07/12/18 17:55 Dose: 40 mg Diltiazem HCl (Cardizem) 30 mg PO Q6 [facility] Last Admin: 07/13/18 14:00 Dose: 30 mg Docusate Sodium (Colace) 100 mg PO TID [facility] Last Admin: 07/13/18 13:00 Dose: Not Given Escitalopram Oxalate (Lexapro) 5 mg PO HS [facility] Furosemide (Lasix) 20 mg IVP Q12 [facility] Last Admin: 07/13/18 11:15 Dose: 20 mg Levofloxacin/Dextrose (Levaquin 500mg) 500 mg in 100 mls @ 100 mls/hr IVPB DAILY [facility]; Protocol Last Admin: 07/13/18 11:37 Dose: 100 mls/hr Methylprednisolone (Solu-Medrol) 20 mg IVP Q8H [facility] Last Admin: 07/13/18 11:37 Dose: 20 mg Midodrine (Proamatine) 5 mg PO TID [facility] Last Admin: 07/13/18 13:00 Dose: Not Given Montelukast Sodium (Singulair) 10 mg PO HS [facility] Last Admin: 07/12/18 21:18 Dose: 10 mg Multivitamins/Vitamin C (Multi-Delyn Liquid) 15 ml PO 0800 [facility] Last Admin: 07/13/18 12:10 Dose: Not Given Ambrisentan [ Letairis] 5 Mg ( Home Med) 5 mg PO DAILY [facility] Last Admin: 07/13/18 09:56 Dose: Not Given Ondansetron HCl (Zofran Inj) 4 mg IVP Q4H PRN PRN Reason: Nausea/Vomiting Pantoprazole Sodium (Protonix Ec Tab) 40 mg PO 0600 [facility] Last Admin: 07/13/18 05:20 Dose: 40 mg Sildenafil Citrate (Revatio) 20 mg PO TID [facility] Last Admin: 07/13/18 14:07 Dose: 20 mg - Labs Labs: 07/12/18 07:30 07/13/18 07:15 PT 11.2 SECONDS (9.4-12.5) 07/10/18 15:55 INR 0.98 07/10/18 15:55 APTT 28.6 Seconds (25.1-36.5) 07/10/18 15:55 - Constitutional Appears: In Acute Distress - Head Exam Head Exam: ATRAUMATIC, NORMOCEPHALIC - Eye Exam Eye Exam: Normal appearance - Respiratory Exam Respiratory Exam: Decreased Breath Sounds, Prolonged Expiratory Phase - Cardiovascular Exam Cardiovascular Exam: Irregular Rhythm, +S1, +S2, Murmur - Extremities Exam Extremities Exam: Pedal Edema - Neurological Exam Neurological Exam: Awake - Skin Skin Exam: Dry, Intact Assessment and Plan - Assessment and Plan (Free Text) Plan: 82 yr old white female with pmh sig for copd, severe pul htn, diastolic chf, cellulitis admitted with cp and palps transferred to ICu for closer mgmt of acute hypoxic episode with o2 sat 85%, abg showing co2 of 83, po2 of 258 and pH of 7.26 and bicarb 37, confusion and AMS, pulling out Iv line. ICU peoplesoft administrator evaluated and pt was transferred this am for closer mgmt. #acute hypoxia /respiratory acidosis /hypercapnic resp failure transferred to ICU ABG noted BiPAP regimen Brovana IV steroids #severe pul htn cardiology eval and plan for cath to eval pul pressures in am Revatio regimen 20TID RVSP 145 per cardiac consultation #new onset AFIB cardizem 30 q 6 cardiology consultation and recs #Right sided CHF /diastolic chf IV lasix 20 q12 Will continue to follow clinical course Shonna Christiansen BPCI/TIC - BPCIA/TIC Educated pt/family on BPCIA/CIR/Med to Bed Programs: Yes Flyers given, including [facility] Beneficiary letter: Yes Pt/family verbalized understanding & agreed to program: Yes
--- NOTE | 2018-07-13 15:43 | US ---
HISTORY: Arm pain and swelling. Evaluate for deep venous thrombosis. PHYSICIAN(S): Shaheed Burden MD. FINDINGS: The visualized internal jugular veins are sonographically normal and compressible. No evidence of obstruction or thrombus this is seen. The visualized segments of the subclavian veins are patent with normal waveforms. No sonographic evidence of obstruction or thrombosis is seen. The visualized deep venous systems of both upper extremities proximally are sonographically normal and compressible. IMPRESSION: 1. No sonographic evidence for deep venous thrombosis in the visualized segments of both upper strategies.
--- NOTE | 2018-07-13 21:16 | CON ---
DATE: 07/13/2018 HISTORY OF PRESENT ILLNESS: This is an 82-year-old lady with history of atrial fibrillation, COPD, very severe pulmonary hypertension and diastolic CHF, who presented to emergency room 3 days ago complaining of severe substernal chest pain, which appeared to be related to physical exertion. She did have this pain before in the past, however, it disappeared on its own. The patient did feel poorly for the 3 days prior to admission, had some palpitation and elevated heart rate. Pain was described as crushing, originating from the middle of the chest. Not radiating. Also no alleviating or aggravating factors. The patient denies nausea, vomiting, diarrhea, constipation, fever, chills, sweats. PAST MEDICAL HISTORY: Atrial fibrillation, COPD, severe pulmonary hypertension, diastolic CHF. PAST SURGICAL HISTORY: The patient denies. FAMILY HISTORY: Noncontributory. SOCIAL HISTORY: The patient is ex-smoker. She quit about 20 years ago, however, smoked for many years prior to that. The patient denies alcohol or illicit drug abuse. ALLERGIES: PENICILLIN. REVIEW OF SYSTEMS: Review of 12-organ system other than mentioned in history of present illness is negative. HOME MEDICATIONS: Prednisone, Revatio, MiraLax, Singulair, Lasix, Coreg, budesonide, aspirin, Brovana, Letairis and DuoNeb. CURRENT MEDICATIONS Brovana, vitamin C, aspirin, Lipitor, Cardizem, Colace, Lovenox (therapeutic dose), Lexapro, Lasix, midodrine, Singulair, Zofran, Protonix, Revatio, Letairis. PHYSICAL EXAMINATION: VITAL SIGNS: Blood pressure 130/80, temperature 98, oxygen saturation 94% on 50% FiO2. The patient is on BiPAP 16/6. HEENT: Head and neck, atraumatic. LUNGS: Clear to auscultation bilaterally. HEART: Irregular rate and rhythm. S1, S2 distant. ABDOMEN: Soft, nontender, nondistended. MUSCULOSKELETAL: 1 to 2+ bilateral pedal and ankle edema. NEURO: The patient moves all extremities spontaneously. SKIN: Moist. PSYCH: The patient is alert, awake, not in respiratory distress. However, appears to be slightly lethargic. Cooperating with BiPAP mask very well. LABORATORY DATA: WBC 7.3, hemoglobin 10.8, platelet count 198. Sodium 138, potassium 4.5, chloride 101, carbon dioxide 32, BUN 38, creatinine 0.9 down from 1.1, glucose 101, phosphorus 3.5, magnesium 1.9, AST 19, ALT 44, total bilirubin 0.5. Blood gas 7.26/83/258 on 100% FiO2 (that ABG apparently was done prior to BiPAP application). INR 0.98. PTT 28.6. Chest x-ray showed right lower lobe infiltrate, some bilateral vascular congestion. Echocardiogram performed on 05/06/2018 showed ejection fraction of 68%, RVSP 145 mmHg, left atrium is moderately dilated, the right atrium is severely dilated, right ventricle appears to be severely dilated with right ventricle mildly to moderately hypertrophied, systolic function of the right ventricle is moderately to severely reduced. Left ventricle appears to be normal size. There is a [id number] concentric left ventricular hypertrophy. There is a flattened septum consistent with right ventricular volume and pressure overload. There is a grade 3 reversible restrictive diastolic dysfunction. Mitral regurgitation is moderate to severe, severe tricuspid regurgitation, severe pulmonary hypertension. CONCLUSION: Small pericardial effusion. EKG showed atrial fibrillation. ASSESSMENT: This is an 82-year-old lady with hypercapnic respiratory failure requiring noninvasive positive pressure ventilation secondary to chronic obstructive pulmonary disease exacerbation in the setting of severe pulmonary hypertension complicated by right ventricular failure in the setting of left ventricular diastolic dysfunction and chronic severe pulmonary disease. At the present time, we will proceed with ICU transfer. We will continue with steroid taper, bronchodilators, antibiotics. We will check the patient's urine for Legionella and Streptococcal antigen. We will get influenza serology. The patient is scheduled to go for left and right ventricular catheterization by Dr. Handy in 2 days, which will give us better idea about left ventricular diastolic dysfunction and allow to better evaluate right ventricular function and pulmonary artery pressure. If invasive assessment of her right ventricular function concurs with echocardiogram findings from several months ago, the patient's prognosis is very poor. Prior to admission, the patient was started on Revatio and Letairis. Until right ventricular catheterization performed, it is hard to comment on etiology/origin of the pulmonary hypertension, (even though combination of factors including type 2 and type 3 in relationship to PH likely play a significant role); thus role of pulmonary vasodilators in this situation is controversial. I would, however, agree with need to control HR and TAC. Avoiding hypercapnia and hypoxemia need to be aggressively avoided. I would be very careful, however, with calcium channelblockers, as it may have negative ionotropic effect on right ventricle. I agree with conservative fluid management as well as therapeutic anticoagulation. I think, conversation with the patient and the patient's family about the advance directives would be for the patient's best interest, as intubating the patient with severe pulmonary hypertension could have worsened right ventricular function and increased pulmonary artery pressure. ccm time 40 min Benitez Daily MD GUERDA
[2018-07-14] MEDS: MethylPREDNISolone 40 mg Vial IVP SCH ×3 (03:30→19:30)
[2018-07-14] MEDS: Arformoterol 15 mcg/2 ml Inh Sol IH SCH (07:03)
[2018-07-14] MEDS ORDERED: Iodixanol 320 MG/ML 100 ML BOTTLE IV ONE (07:13)
[2018-07-14] MEDS ORDERED: Iodixanol 320 MG/ML 200 ML BOTTLE IV ONE (07:13)
[2018-07-14] MEDS ORDERED: Iohexol 350mgl/ml 50 ML ONE (07:13)
[2018-07-14] MEDS ORDERED: Lidocaine 2% Inj (20ml) ONE (07:13)
[2018-07-14] MEDS ORDERED: Famotidine 20mg/50ml 20 MG/50 ML BAG IVPB ONE (07:14)
[2018-07-14] MEDS ORDERED: DiphenhydrAMINE 50 mg/ml Inj ONE (07:14)
[2018-07-14] MEDS ORDERED: Phenylephrine 10 mg/ml Inj ONE (07:15)
[2018-07-14] MEDS: Pantoprazole 40 mg EC Tab PO SCH (07:16)
[2018-07-14] MEDS ORDERED: Midazolam 2 MG/2 ML VIAL ONE (08:13)
[2018-07-14] MEDS ORDERED: Digoxin 500 mcg/2ml (0.5 mg/2ml) Inj ONE (08:24)
--- NOTE | 2018-07-14 08:34 | CP.CCUPN ---
<Vesta Rodas - Last Filed: 07/14/18 10:56> CCU Subjective - Physician Review Subjective (Free Text): Vesta Rodas, PGY-1, ICU Progress Note for Dr. Farah Patient seen and evaluated at bedside. Patient had no acute overnight events. Patient currently is status post cardiac catherization and is on BiPap. 12-point ROS was unattainable due to current patient status. Critical Care Time Spent (in minutes): 30 CCU Objective - Vital Signs / Intake & Output Vital Signs (Last 4 hours): Vital Signs Pulse Resp BP Pulse Ox 07/14/18 07:16 82 131/57 L 07/14/18 07:10 101 H 21 99 07/14/18 07:07 109 H 07/14/18 07:01 107 H 19 07/14/18 07:00 131/57 L 07/14/18 06:59 97 H 28 H 07/14/18 06:57 99 H 15 07/14/18 06:56 106 H 17 07/14/18 06:55 97 H 17 07/14/18 06:54 105 H 23 07/14/18 06:53 99 H 07/14/18 06:52 97 H 15 07/14/18 06:51 95 H 19 07/14/18 06:50 102 H 15 07/14/18 06:49 99 H 15 07/14/18 06:48 101 H 24 07/14/18 06:40 97 H 17 99 07/14/18 06:30 100 H 18 77 L 07/14/18 06:20 94 H 15 87 L 07/14/18 06:10 93 H 15 87 L 07/14/18 06:00 101 H 18 117/75 96 07/14/18 05:50 99 H 99 07/14/18 05:40 94 H 17 96 07/14/18 05:30 94 H 14 96 07/14/18 05:20 99 H 17 99 07/14/18 05:11 99 H 07/14/18 05:10 112 H 24 07/14/18 05:09 99 H 07/14/18 05:00 92 H 27 H 117/67 100 07/14/18 04:50 89 22 89 L 07/14/18 04:40 93 H 18 94 L 07/14/18 04:36 98 H 19 01/15/19 04:35 90 21 07/14/18 04:34 102 H 22 07/14/18 04:33 100 H 22 07/14/18 04:32 90 16 07/14/18 04:31 93 H 32 H 07/14/18 04:30 86 15 07/14/18 04:29 84 16 07/14/18 04:28 88 22 Intake and Output (Last 8hrs): Intake & Output 07/13/18 07/14/18 07/14/18 22:59 06:59 14:59 Intake Total 240 Output Total 500 Balance -260 Intake: IV 140 Right Forearm 140 Oral 100 Output: Urine 500 Urine, Voided 500 - Physical Exam Head: Positive for: Atraumatic, Normocephalic Pupils: Positive for: PERRL Extroacular Muscles: Positive for: EOMI Conjunctiva: Positive for: Normal Mouth: Positive for: Moist Mucous Membranes Neck: Positive for: Normal Range of Motion Respiratory/Chest: Positive for: Decreased Breath Sounds (decreased in anterior lung rico), Other (irregularly irregular breath). Negative for: Respiratory Distress, Accessory Muscle Use Cardiovascular: Positive for: Normal S1, S2. Negative for: Murmurs Abdomen: Negative for: Tenderness, Distention, Peritoneal Signs Back: Positive for: Normal Inspection Upper Extremity: Positive for: Normal Inspection. Negative for: Cyanosis, Edema Lower Extremity: Positive for: Edema (+3 pitting edema ) Neurological: Positive for: GCS=15, CN II-XII Intact, Speech Normal Skin: Positive for: Warm, Dry, Normal Color. Negative for: Rashes Psychiatric: Positive for: Alert, Oriented x 3, Normal Insight, Normal Concentration - Medications Active Medications: Active Medications Generic Name Dose Route Start Last Admin Trade Name Freq PRN Reason Stop Dose Admin Acetaminophen 650 mg 07/10/18 18:08 Tylenol 325mg Tab PO Q6 PRN TEMP>=99.5F Acetaminophen 650 mg 07/10/18 18:08 Tylenol 650 Mg Supp RC Q6H PRN TEMP>=99.5F Arformoterol Tartrate 15 mcg 07/10/18 20:00 07/14/18 07:03 Brovana IH 15 mcg [id number] [facility]AM Administration Ascorbic Acid 500 mg 07/12/18 19:15 07/13/18 18:30 Vitamin C 500 Mg Tab PO 500 mg BID [facility] Administration Aspirin 81 mg 07/11/18 10:00 07/13/18 12:10 Ecotrin PO Not Given DAILY [facility] Atorvastatin Calcium 40 mg 07/10/18 18:15 07/13/18 17:00 Lipitor PO Not Given DIN [facility] Diltiazem HCl 30 mg 07/11/18 18:00 07/14/18 07:16 Cardizem PO 30 mg Q6 [facility] Administration Docusate Sodium 100 mg 07/11/18 10:00 07/13/18 18:30 Colace PO Not Given TID [facility] Escitalopram Oxalate 5 mg 07/13/18 22:00 07/13/18 21:32 Lexapro PO 5 mg HS [facility] Administration Furosemide 20 mg 07/10/18 22:00 07/13/18 22:00 Lasix IVP Not Given Q12 [facility] Levofloxacin/Dextrose 500 mg in 100 mls @ 100 mls/hr 07/13/18 11:30 07/13/18 11:37 Levaquin 500mg IVPB 100 mls/hr DAILY [facility] Administration Protocol Methylprednisolone 20 mg 07/13/18 11:30 07/14/18 03:30 Solu-Medrol IVP 20 mg Q8H [facility] Administration Midodrine 5 mg 07/11/18 18:00 07/13/18 18:29 Proamatine PO 5 mg TID [facility] Administration Montelukast Sodium 10 mg 07/10/18 22:00 07/13/18 21:32 Singulair PO 10 mg HS [facility] Administration Multivitamins/Vitamin C 15 ml 07/13/18 08:00 07/13/18 12:10 Multi-Delyn Liquid PO Not Given 0800 [facility] Ambrisentan [ 5 mg 07/11/18 10:00 07/13/18 09:56 Letairis] 5 Mg ( PO Not Given Home Med) DAILY [facility] Ondansetron HCl 4 mg 07/10/18 18:08 Zofran Inj IVP Q4H PRN Nausea/Vomiting Pantoprazole Sodium 40 mg 07/11/18 06:00 07/14/18 07:16 Protonix Ec Tab PO 40 mg 0600 [facility] Administration Sildenafil Citrate 20 mg 07/11/18 10:00 07/13/18 18:30 Revatio PO 20 mg TID [facility] Administration - Patient Studies Lab Studies: Lab Studies 07/13/18 07/13/18 Range/Units 12:10 09:09 pCO2 74 H* 83 H* (35-45) mm/Hg pO2 111.0 H 258.0 H (80-100) mm/Hg HCO3 36.4 H 37.2 H (21-28) mmol/L ABG pH 7.30 L 7.26 L (7.35-7.45) ABG Total CO2 38.7 H 39.7 H (22-28) mmol.L ABG O2 Saturation 99.2 H 99.7 H (95-98) % ABG O2 Content 15.6 (15-23) ML/dl ABG Base Excess 7.2 H 7.7 H (-2.0-3.0) mmol/L ABG Hemoglobin 11.0 L (11.7-17.4) g/dL ABG Carboxyhemoglobin 1.9 H (0.5-1.5) % POC ABG HHb (Measured) 0.3 (0-5) % ABG Methemoglobin 0.9 (0.0-3.0) % ABG O2 Capacity 15.6 L (16-24) mL/dl ABG Potassium 3.9 (3.6-5.2) mmol/L Hgb O2 Saturation 96.8 (95.0-98.0) % Sodium 136.0 (132-148) mmol/L Chloride 100.0 (98-107) mmol/L Glucose 101 (65-105) mg/dl Lactate 0.4 L (0.7-2.1) mmol/L FiO2 50.0 100.0 % Arterial Blood Potassium 3.9 (3.6-5.2) mmol/L Laboratory Results - last 24 hr 07/13/18 07/13/18 09:09 12:10 pCO2 83 H* 74 H* pO2 258.0 H 111.0 H HCO3 37.2 H 36.4 H ABG pH 7.26 L 7.30 L ABG Total CO2 39.7 H 38.7 H ABG O2 Saturation 99.7 H 99.2 H ABG O2 Content 15.6 ABG Base Excess 7.7 H 7.2 H ABG Hemoglobin 11.0 L ABG Carboxyhemoglobin 1.9 H POC ABG HHb (Measured) 0.3 ABG Methemoglobin 0.9 ABG O2 Capacity 15.6 L ABG Potassium 3.9 Hgb O2 Saturation 96.8 Sodium 136.0 Chloride 100.0 Glucose 101 Lactate 0.4 L FiO2 100.0 50.0 Arterial Blood Potassium 3.9 Radiology Impressions: Radiology Impressions Extremity Ultrasound 07/13/18 11:39 IMPRESSION: 1. No sonographic evidence for deep venous thrombosis in the visualized segments of both upper strategies. Review of Systems - Review of Systems Review of Systems: except for what was mentioned in HPI Critical Care Progress Note - Ventilator Checklist Head of Bed 30 Degrees: Yes PUD Prophalyxis: Yes DVT Prophylaxis: Yes - Nutrition Nutrition: Nutrition Category Date Time Status Heart Healthy Diet [DIET] Diets 07/11/18 Breakfast Active Assessment/Plan - Assessment and Plan (Free Text) Assessment: 82 year old female with past medical history of atrial fibrillation, COPD, pulmonary hypertension, and diastolic CHF initially presented to the hospital wi th crushing substernal chest pain while working with physical therapy. Hypercapneic Respiratory Failure 2/2 to COPD Right Ventricular Failure Pulmonary Hypertension Atrial Fibrillation Plan: Neuro: -No FND, moving extremities past midline. -Monitor neuro status. -Reorient patient as necessary. Cardio: Diastolic Congestive Heart Failure -RRR, normotensive, no signs of HD compromise -Last echocardiogram from 04/2018: EF: 68% -CXR from 07/13: cardiomegaly, hypoinflated lungs, bilateral pleural effusion and associated consolidating pulmonary venous congestion -Continue with aspirin 81 daily, lipitor 40 mg daily, cardizem 30 mg Q6, lasix 20 mg Q12 -Patient had cardiac catherization today and 1 bare metal RCA stent was placed. -Maintain MAP>65. -Monitor for S/S, HD compromise. Atrial Fibrillation with RVR -EKG 07/14: Atrial Fibrillation with RVR -Continue with cardizem 30 mg Q6, not currently on therapeutic anticoagulation. -Follow up with Cardiology, Dr. Handy, for further recommendations. Pulm: Hypercapneic Respiratory Failure 2/2 to COPD -Patient currently on BiPap -CXR from 07/13: cardiomegaly, hypoinflated lungs, bilateral pleural effusion and associated consolidating pulmonary venous congestion -Continue with solumedrol 20 mg IV Q8, brovana 15 mcg Q12, singulair 10 mg HS -Maintain O2 saturation>95%. -Elevate bed to 30 degrees Pulmonary Hypertension -Last RVSP: 145 -Continue with letairis 5 mg PO daily and revatio 20 mg PO TID GI: Diet -NPO GI Prophylaxis -Protonix 40 mg PO daily /Nephro: -BUN/Cr stable at 38/0.9 -Good urine output -Continue monitoring. -Replete electrolytes as needed. -Maintain euvolemia. Endocrinology: -Random glucose: 156 -Maintain euglycemia. Heme/Onc: -H/H stable at 11.4/38.5 -No signs of HD compromise. -Continue monitoring H/H DVT prophylaxis -SCD, heparin 5000 U subq Q8 ID: Rule out pneumonia -Afebrile, no leukocytosis -CXR from 07/13: cardiomegaly, hypoinflated lungs, bilateral pleural effusion and associated consolidating pulmonary venous congestion -Follow up urine legionella antigen, S. Pneumonia antigen, influenza A and B, and MRSA screen. -Continue with levaquin 500 mg daily day 2. -Monitor for signs and symptoms of infection. Psych: Depression -As per Dr. Childers, Psychiatry, continue with lexapro 5 mg PO HS Dispo: Patient is currently DNR/DNI. Patient seen and examined with Dr. Farah. - Date & Time Date: 07/14/18 Time: 08:30 <Segun Farah - Last Filed: 07/14/18 14:38> CCU Objective - Vital Signs / Intake & Output Vital Signs (Last 4 hours): Vital Signs Pulse Resp BP Pulse Ox 07/14/18 14:25 83 136/74 07/14/18 13:10 96 H 07/14/18 11:16 129/60 07/14/18 11:05 129/60 07/14/18 10:50 70 17 94 L 07/14/18 10:45 74 14 128/45 L 94 L 07/14/18 10:40 80 11 L 95 07/14/18 10:30 76 14 122/58 L 94 L Intake and Output (Last 8hrs): Intake & Output 07/13/18 07/14/18 07/14/18 22:59 06:59 14:59 Intake Total 240 Output Total 500 Balance -260 Intake: IV 140 Right Forearm 140 Oral 100 Output: Urine 500 Urine, Voided 500 - Medications Active Medications: Active Medications Generic Name Dose Route Start Last Admin Trade Name Freq PRN Reason Stop Dose Admin Acetaminophen 650 mg 07/10/18 18:08 Tylenol 325mg Tab PO Q6 PRN TEMP>=99.5F Acetaminophen 650 mg 07/10/18 18:08 Tylenol 650 Mg Supp RC Q6H PRN TEMP>=99.5F Arformoterol Tartrate 15 mcg 07/10/18 20:00 07/14/18 07:03 Brovana IH 15 mcg [id number] [facility] Administration Ascorbic Acid 500 mg 07/12/18 19:15 07/14/18 14:26 Vitamin C 500 Mg Tab PO Not Given BID [facility] Aspirin 81 mg 07/11/18 10:00 07/14/18 07:05 Ecotrin PO 81 mg DAILY [facility] Administration Atorvastatin Calcium 40 mg 07/10/18 18:15 07/13/18 17:00 Lipitor PO Not Given DIN [facility] Diltiazem HCl 30 mg 07/11/18 18:00 07/14/18 14:25 Cardizem PO 30 mg Q6 [facility] Administration Docusate Sodium 100 mg 07/11/18 10:00 07/14/18 14:25 Colace PO 100 mg TID [facility] Administration Escitalopram Oxalate 5 mg 07/13/18 22:00 07/13/18 21:32 Lexapro PO 5 mg HS [facility] Administration Furosemide 20 mg 07/10/18 22:00 07/14/18 11:05 Lasix IVP 20 mg Q12 [facility] Administration Heparin Sodium (Porcine) 5,000 units 07/14/18 11:15 07/14/18 14:21 Heparin SC Not Given Q8H [facility] Protocol Levofloxacin/Dextrose 500 mg in 100 mls @ 100 mls/hr 07/13/18 11:30 07/14/18 11:06 Levaquin 500mg IVPB 100 mls/hr DAILY [facility] Administration Protocol Sodium Chloride 1,000 mls @ 100 mls/hr 07/14/18 10:30 07/14/18 11:00 Sodium Chloride 0.9% IV 07/14/18 15:00 100 mls/hr .Q10H [facility] Administration Methylprednisolone 20 mg 07/13/18 11:30 07/14/18 14:24 Solu-Medrol IVP 20 mg Q8H [facility] Administration Midodrine 5 mg 07/11/18 18:00 07/14/18 14:25 Proamatine PO 5 mg TID [facility] Administration Montelukast Sodium 10 mg 07/10/18 22:00 07/13/18 21:32 Singulair PO 10 mg HS [facility] Administration Multivitamins/Vitamin C 15 ml 07/13/18 08:00 07/14/18 10:57 Multi-Delyn Liquid PO Not Given 0800 [facility] Ambrisentan [ 5 mg 07/11/18 10:00 07/14/18 14:20 Letairis] 5 Mg ( PO Not Given Home Med) DAILY [facility] Ondansetron HCl 4 mg 07/10/18 18:08 Zofran Inj IVP Q4H PRN Nausea/Vomiting Pantoprazole Sodium 40 mg 07/11/18 06:00 07/14/18 07:16 Protonix Ec Tab PO 40 mg 0600 [facility] Administration Sildenafil Citrate 20 mg 07/11/18 10:00 07/14/18 14:25 Revatio PO 20 mg TID [facility] Administration - Patient Studies Lab Studies: Lab Studies 07/14/18 07/14/18 Range/Units 10:20 10:20 WBC 4.8 D (4.5-11.0) 10^3/uL RBC 3.81 (3.5-6.1) 10^6/uL Hgb 11.4 L (12.0-16.0) g/dL Hct 38.5 (36.0-48.0) % MCV 101.0 (80.0-105.0) fl MCH 29.9 (25.0-35.0) pg MCHC 29.6 L (31.0-37.0) g/dl RDW 15.6 H (11.5-14.5) % Plt Count 188 (120.0-450.0) 10^3/uL MPV 9.5 (7.0-11.0) fl Gran % 91.1 H (50.0-68.0) % Lymph % (Auto) 6.2 L (22.0-35.0) % [place] % (Auto) 2.7 (1.0-6.0) % Eos % (Auto) 0.0 L (1.5-5.0) % Baso % (Auto) 0.0 (0.0-3.0) % Gran # 4.41 (1.4-6.5) Lymph # (Auto) 0.3 L (1.2-3.4) [place] # (Auto) 0.1 (0.1-0.6) Eos # (Auto) 0.0 (0.0-0.7) Baso # (Auto) 0.00 (0.0-2.0) K/mm3 Neutrophils % (Manual) 91 H (50.0-70.0) % Lymphocytes % (Manual) 6 L (22.0-35.0) % Atypical Lymphs % 1 H (0.0-0.0) % Monocytes % (Manual) 2 (1.0-6.0) % Platelet Evaluation Normal (NORMAL) Hypochromasia 1+ Anisocytosis (manual) 1+ Macrocytosis (manual) 1+ Sodium 136 (132-148) mmol/L Potassium 4.8 (3.6-5.0) mmol/L Chloride 98 (98-107) mmol/L Carbon Dioxide 34 H (21-33) mmol/L Anion Gap 9 L (10-20) BUN 38 H (7-21) mg/dL Creatinine 0.9 (0.7-1.2) mg/dl Est GFR ( Amer) > 60 Est GFR (Non-Af Amer) 60 Random Glucose 156 H (70-110) mg/dL Calcium 8.7 (8.4-10.5) mg/dL Phosphorus 4.1 (2.5-4.5) mg/dL Magnesium 1.9 (1.7-2.2) mg/dL Total Bilirubin 0.5 (0.2-1.3) mg/dL Direct Bilirubin 0.3 (0.0-0.4) mg/dL AST 22 (14-36) U/L ALT 41 (7-56) U/L Alkaline Phosphatase 59 (38-126) U/L Total Protein 6.3 (5.8-8.3) g/dL Albumin 3.5 (3.0-4.8) g/dL Globulin 2.9 gm/dL Albumin/Globulin Ratio 1.2 (1.1-1.8) Laboratory Results - last 24 hr 07/14/18 07/14/18 10:20 10:20 WBC 4.8 D RBC 3.81 Hgb 11.4 L Hct 38.5 MCV 101.0 MCH 29.9 MCHC 29.6 L RDW 15.6 H Plt Count 188 MPV 9.5 Gran % 91.1 H Lymph % (Auto) 6.2 L [place] % (Auto) 2.7 Eos % (Auto) 0.0 L Baso % (Auto) 0.0 Gran # 4.41 Lymph # (Auto) 0.3 L [place] # (Auto) 0.1 Eos # (Auto) 0.0 Baso # (Auto) 0.00 Neutrophils % (Manual) 91 H Lymphocytes % (Manual) 6 L Atypical Lymphs % 1 H Monocytes % (Manual) 2 Platelet Evaluation Normal Hypochromasia 1+ Anisocytosis (manual) 1+ Macrocytosis (manual) 1+ Sodium 136 Potassium 4.8 Chloride 98 Carbon Dioxide 34 H Anion Gap 9 L BUN 38 H Creatinine 0.9 Est GFR ( Amer) > 60 Est GFR (Non-Af Amer) 60 Random Glucose 156 H Calcium 8.7 Phosphorus 4.1 Magnesium 1.9 Total Bilirubin 0.5 Direct Bilirubin 0.3 AST 22 ALT 41 Alkaline Phosphatase 59 Total Protein 6.3 Albumin 3.5 Globulin 2.9 Albumin/Globulin Ratio 1.2 Radiology Impressions: Radiology Impressions Extremity Ultrasound 07/13/18 11:39 IMPRESSION: 1. No sonographic evidence for deep venous thrombosis in the visualized segments of both upper strategies. EKG/Cardiology Studies: Cardiology / EKG Studies 07/14/18 10:22 ELECTROCARDIOGRAM Urgent Comment: 12 lead EKG upon arrival in unit Reason For Exam: post ptca 07/15/18 10:30 ELECTROCARDIOGRAM DAILY Comment: Reason For Exam: chest pain Critical Care Progress Note - Nutrition Nutrition: Nutrition Category Date Time Status Heart Healthy Diet [DIET] Diets 07/11/18 Breakfast Active Assessment/Plan - Assessment and Plan (Free Text) Plan: Patient seen and examined on rounds with resident, agree with note with following additions/exceptions: Patient is 82yo female with PMhx Afib not on A/C, COPD, pulmonary hypertension, and diastolic CHF, admitted with Chest pain and COPD exacerbation, underwent PCI today, RCA stent. Currently afebrile, BP stable, comfortable in NAD on BIPAP, doing well. Labs, imaging, chart reviewed. Unstable angina s/p PCI COPD Afib Severe Pulm HTN Diastolic CHF Recommend: - titrate off BIPAP, supp o2 as needed, goal sat 90%, pt is DNR/DNI - Duonebs PRN - Solumedrol 40mg IV TID - ASA, Plavix, Statin, Cardizem - Abx , Levaquin - continue with Letairis 5 mg PO daily and Revatio 20 mg PO TID - FS control - monitor LFTs, UOP - I/Os, daily weights - GI ppx - DVT ppx, HSQ - Monitor in CCU Critical care time 35 minutes
[2018-07-14] MEDS ORDERED: Eptifibatide 20 mg/10mL Inj IVP ONE (08:37)
--- NOTE | 2018-07-14 08:39 | CP.PCM.PN ---
Subjective - Date & Time of Evaluation Date of Evaluation: 07/14/18 Time of Evaluation: 06:15 - Subjective Subjective: Patient seen and examined at bedside this morning with BiPAP on 13/12, 50%. Patient states she has no complaints overnight aside from having to wear the BiPAP since it is uncomfortable for her. Objective - Vital Signs/Intake and Output Vital Signs (last 24 hours): Temp Pulse Resp BP Pulse Ox 97.8 F 82 21 131/57 L 99 07/13/18 15:40 07/14/18 07:16 07/14/18 07:10 07/14/18 07:16 07/14/18 07:10 - Medications Medications: Current Medications Acetaminophen (Tylenol 325mg Tab) 650 mg PO Q6 PRN PRN Reason: TEMP>=99.5F Acetaminophen (Tylenol 650 Mg Supp) 650 mg RC Q6H PRN PRN Reason: TEMP>=99.5F Arformoterol Tartrate (Brovana) 15 mcg IH [id number] [facility] Last Admin: 07/14/18 07:03 Dose: 15 mcg Ascorbic Acid (Vitamin C 500 Mg Tab) 500 mg PO BID [facility] Last Admin: 07/13/18 18:30 Dose: 500 mg Aspirin (Ecotrin) 81 mg PO DAILY [facility] Last Admin: 07/13/18 12:10 Dose: Not Given Atorvastatin Calcium (Lipitor) 40 mg PO DIN [facility] Last Admin: 07/13/18 17:00 Dose: Not Given Diltiazem HCl (Cardizem) 30 mg PO Q6 [facility] Last Admin: 07/14/18 07:16 Dose: 30 mg Docusate Sodium (Colace) 100 mg PO TID [facility] Last Admin: 07/13/18 18:30 Dose: Not Given Escitalopram Oxalate (Lexapro) 5 mg PO HS [facility] Last Admin: 07/13/18 21:32 Dose: 5 mg Furosemide (Lasix) 20 mg IVP Q12 [facility] Last Admin: 07/13/18 22:00 Dose: Not Given Levofloxacin/Dextrose (Levaquin 500mg) 500 mg in 100 mls @ 100 mls/hr IVPB DAILY [facility]; Protocol Last Admin: 07/13/18 11:37 Dose: 100 mls/hr Methylprednisolone (Solu-Medrol) 20 mg IVP Q8H [facility] Last Admin: 07/14/18 03:30 Dose: 20 mg Midodrine (Proamatine) 5 mg PO TID [facility] Last Admin: 07/13/18 18:29 Dose: 5 mg Montelukast Sodium (Singulair) 10 mg PO HS [facility] Last Admin: 07/13/18 21:32 Dose: 10 mg Multivitamins/Vitamin C (Multi-Delyn Liquid) 15 ml PO 0800 [facility] Last Admin: 07/13/18 12:10 Dose: Not Given Ambrisentan [ Letairis] 5 Mg ( Home Med) 5 mg PO DAILY [facility] Last Admin: 07/13/18 09:56 Dose: Not Given Ondansetron HCl (Zofran Inj) 4 mg IVP Q4H PRN PRN Reason: Nausea/Vomiting Pantoprazole Sodium (Protonix Ec Tab) 40 mg PO 0600 [facility] Last Admin: 07/14/18 07:16 Dose: 40 mg Sildenafil Citrate (Revatio) 20 mg PO TID [facility] Last Admin: 07/13/18 18:30 Dose: 20 mg - Labs Labs: 07/12/18 07:30 07/13/18 07:15 PT 11.2 SECONDS (9.4-12.5) 07/10/18 15:55 INR 0.98 07/10/18 15:55 APTT 28.6 Seconds (25.1-36.5) 07/10/18 15:55 - Constitutional Appears: Non-toxic, No Acute Distress - Head Exam Head Exam: ATRAUMATIC, NORMAL INSPECTION, NORMOCEPHALIC - Eye Exam Eye Exam: EOMI, Normal appearance - ENT Exam ENT Exam: Mucous Membranes Dry Additional comments: BiPAP on - Respiratory Exam Respiratory Exam: Clear to Ausculation Bilateral, NORMAL BREATHING PATTERN - Cardiovascular Exam Cardiovascular Exam: REGULAR RHYTHM, Murmur (systolic ) - GI/Abdominal Exam GI & Abdominal Exam: Normal Bowel Sounds - Extremities Exam Extremities Exam: Full ROM - Back Exam Back Exam: NORMAL INSPECTION - Neurological Exam Neurological Exam: Alert, Awake, Oriented x3 - Psychiatric Exam Psychiatric exam: Normal Mood - Skin Skin Exam: Dry, Warm Assessment and Plan - Assessment and Plan (Free Text) Assessment: Patient is an 82 F with history of new onset atrial fibrillation, severe pul monary hypertension with RVSP 145, right sided diastolic congestive heart failure presenting with hypercapnic respiratory failure Pulmonary hypertension -Continue with Revatio and ambrisentan -Cardiac cath revealed right atrial pressure of 18 mmHg. Success with stent tessa cement of 78% stenosed proximal RCA. Will continue on aspirin for life and plavix for at least one month. Cardio also recommends cardiac risk reduction program. New onset atrial fibrillation -lovenox d/c'ed, heparin started -Cardizem for rate control Right sided Heart failure with preserved Ejection Fraction -Continue with IV lasix COPD Continue with josesito iniguez
[2018-07-14 09:40] VITALS: PULSE 140
[2018-07-14 10:29] LABS: GRAN # 4.41 (1.4-6.5); GRAN % 91.1 % (50.0-68.0); HEMOGLOBIN 11.4 g/dL (12.0-16.0); LYMPH # 0.3 (1.2-3.4); LYMPH % 6.2 % (22.0-35.0); MEAN CORPUSCULAR HEMOGLOBIN 29.9 pg (25.0-35.0); MEAN CORPUSCULAR HGB CONC 29.6 g/dl (31.0-37.0); MEAN PLATELET VOLUME 9.5 fl (7.0-11.0); MONO # 0.1 (0.1-0.6); MONO % 2.7 % (1.0-6.0); PLATELET COUNT 188 10^3/uL (120.0-450.0); RBC 3.81 10^6/uL (3.5-6.1); RED CELL DISTRIBUTION WIDTH 15.6 % (11.5-14.5); WHITE BLOOD COUNT 4.8 10^3/uL (4.5-11.0)
[2018-07-14] MEDS ORDERED: Sodium Chloride 0.9% 1,000 ML IV SCH (10:30)
--- NOTE | 2018-07-14 10:33 | CARDCATH ---
PROCEDURE DATE: 07/14/2018 HISTORY: The patient is an 82-year-old woman who presents with marked shortness of breath and angina. Because of her ongoing symptoms, a cardiac catheterization was recommended. PROCEDURES: Right and left heart catheterization with coronary arteriography, left ventriculogram, supra-aortic valvular injection followed by PTCA and stent of an RCA with a bare-metal stent. The right femoral artery was cannulated with a 6-Djiboutian sheath. The right femoral vein was cannulated with a 7-[place]iboutian sheath. There were no complications. I performed moderate sedation which included the presence of an independent trained observer that assisted in monitoring the patient's level of consciousness. After administration of Versed, my intra-service time was 45 minutes. The patient was taken to the laboratory chief and prepped using a BiPap machine to maintain her pulse oximetry. The findings on catheterization included right heart catheterization. A [place] catheter was placed in the right atrium which revealed a mean right atrial pressure of 18 mmHg. Despite multiple attempts, the catheter could not advance into the RV due to the large size of the right atrium as well as marked tricuspid regurgitation. Her coronary anatomy revealed diffuse calcification in the coronary tree. The RCA was a dominant vessel with diffuse calcification and atherosclerosis with an eccentric 70% stenosis in the proximal portion. The left main artery revealed diffuse atherosclerosis without critical lesions. The LAD and diagonal vessels revealed calcification with diffuse atherosclerosis without critical lesions. The circumflex artery and obtuse marginal branch revealed diffuse atherosclerosis and calcification without critical lesions. Supra-aortic valvular injection revealed no aortic insufficiency. LV function was normal with an EF of 60%. The patient was started on intravenous Angiomax and given two doses of intravenous Integrilin. The guiding catheter was placed in the ostium of the RCA. An ATW wire was used to cross the critical lesion. Guide liner was necessary to help bring the balloon stent down to the lesion. A 2.75 x 8 mm bare-metal stent was used and deployed at the critical lesion at 14 ounces of pressure. After balloon deflation and removal, repeat coronary arteriography revealed an excellent result with no residual stenosis and KAMINI 3 flow. The patient tolerated the procedure well. The sheath will be removed in the ICU with manual compression due to her marked peripheral vascular disease. In summary, the procedure was successful PTCA and stent of an eccentric 78% stenosis in the proximal RCA. Cardiac catheterization revealed pulmonary hypertension with a right atrial mean pressure of 18 mmHg. Cardiac catheterization revealed diffuse calcification in the coronary tree with a 70% stenosis in the RCA. Normal LV function. Given these findings, the patient will need to remain on aspirin indefinitely and Plavix for 1 month and undergo a cardiac risk reduction program. The patient will be transferred back to the ICU for sheath removal. Shaheed Handy MD
[2018-07-14 10:39] LABS: ALB/GLOB RATIO 1.2 (1.1-1.8); ALBUMIN 3.5 g/dL (3.0-4.8); ALT/SGPT 41 U/L (7-56); AST/SGOT 22 U/L (14-36); BILIRUBIN,DIRECT 0.3 mg/dL (0.0-0.4); BLOOD UREA NITROGEN 38 mg/dL (7-21); CALCIUM 8.7 mg/dL (8.4-10.5); GFR NON-AFRICAN AMERICAN 60
[2018-07-14 10:47] LABS: ANISOCYTOSIS 1+; ATYPICAL LYMPHOCYTE 1 % (0.0-0.0); HYPOCHROMIA 1+; LYMPHOCYTE 6 % (22.0-35.0); MONOCYTE 2 % (1.0-6.0); NEUTROPHIL 91 % (50.0-70.0); PLATELET ESTIMATE NORMAL (NORMAL)
[2018-07-14] MEDS: Multi Vitamins 15 mL UD Oral Solution PO SCH (10:57)
[2018-07-14] MEDS: Sildenafil 20 MG TAB PO SCH ×3 (10:58→17:37)
[2018-07-14] MEDS: levoFLOXacin 500 mg in D5W 500 MG/100 ML BAG IVPB SCH (11:06)
--- NOTE | 2018-07-14 13:17 | PN ---
DATE: 07/14/2018 SUBJECTIVE: The patient is seen in ICU bed three. The patient is seen lying in the bed. The patient is sedated post cardiac catheterization. Overnight nurse's notes were reviewed. According to the nurses' notes, the patient desaturates if the BiPap mask is removed and the patient becomes hypoxic. PHYSICAL EXAMINATION: VITAL SIGNS: T-max is 97.8. Telemetry shows atrial fibrillation, heart rate 75, blood pressure 129/60, respiration 17, O2 sat 94-95%. Intake and output is 240 and 500. HEENT: Head examination is normocephalic, atraumatic. HEENT examination shows positive BiPap mask. Pinkish pale conjunctivae. Anicteric sclerae. No oropharyngeal lesion. NECK: No neck rigidity. CHEST: Kyphosis. LUNGS: Examination shows positive rhonchi bilaterally. Decreased breath sound at the bases. CARDIOVASCULAR: S1, S2, irregular rhythm. Positive systolic murmur left sternal border, right second intercostal space, left second intercostal space. ABDOMEN: Soft. Positive bowel sounds. No palpable hepatosplenomegaly. GENITALIA: Female. RECTAL: Examination is deferred. EXTREMITIES: Groin examination shows positive Angio-Seal. Lower extremity shows trace swelling of the lower extremity. No pitting edema. MUSCULOSKELETAL: Examination shows a body mass index of 27. NEUROLOGIC: The patient is sedated. Gait examination is not tested. DIAGNOSTICS: 07/14/2018, WBC 4.8, hemoglobin/hematocrit 11.4, 38.5, platelet 188. Granulocytes 91% segs. Last ABG done yesterday on 50% FIO2, pH of 7.30, pCO2 74, pO2 111, bicarb 36, saturation of 99%. CMP, LFTs from today, sodium 136, potassium 4.8, chloride 98, CO2 34, anion gap 9, BUN 38, creatinine 0.9, GFR greater than 60, glucose 156, calcium 8.7, phosphorus 4.1, magnesium 1.9. LFTs are normal. RPR is nonreactive. IMPRESSION AND PLAN: 1. Hypoxic and hypercarbic respiratory failure with severe respiratory acidosis. 2. Status post cardiac catheterization and an angioplasty and bare-metal stent placement of the 70% stenosis of the right coronary artery. 3. Severe tricuspid regurgitation. 4 Severe pulmonary hypertension with right ventricular systolic pressure of greater than 150. 5. 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 6. Diffuse atherosclerosis of the left main coronary artery and diffuse atherosclerosis of the left anterior descending and diagonal vessel and left circumflex artery and obtuse marginal branch with diffuse atherosclerosis. 7. Left ventricular ejection fraction of 60%. 8. Status post successful angioplasty and stent placement of the 70% stenosis of the proximal right coronary artery disease. 9. Atrial fibrillation. 10. Status post hypotension. 11. Hypoxemia. 12. Questionable epistaxis secondary to humidified O2. 13. Normocytic anemia. 14. Granulocytosis. 15. Severe respiratory acidosis and hypercarbia and hypoxemia. 16. Prerenal kidney injury. 17. Questionable depression. 18. Possible adjustment disorder versus major depression. 19. Severe pulmonary hypertension with right-sided diastolic congestive heart failure. 20. Depression. 21. Chronic obstructive pulmonary disease. 22. Hyperlipidemia. 23. Hypotension. PLAN: At this time, the patient has been ordered serial labs, serial CBC's, current consultation with Cardiology and Psychiatry. CURRENT MEDICATIONS: 1. Letairis 5 mg p.o. daily. 2. Brovana nebulizer 15 mcg every 12 hours. 3. Cardizem 30 mg q. p.o. every 6 hours. 4. Colace 100 mg three times a day. 5. Ecotrin 81 mg daily. 6. Heparin 5000 subcu every 8 hours. 7. Lasix 20 mg IV push every 12 hours. 8. Levaquin 500 mg IV daily. 9. Lexapro 5 mg h.s. 10. Lipitor 40 mg daily. 11. Multivitamin 15 mL daily. 12. ProAmatine 5 mg three times a day. 13. Protonix 40 mg daily. 14. Revatio 20 mg three times a day. 15. Singulair 10 mg h.s. 16. The patient is on Solu-Medrol started by head chopper 20 mg IV every 8 hours. 17. Tylenol 650 p.o. every 6 hours. 18. Ascorbic acid 500 mg twice a day. 19. Zofran 4 mg IV every 4 hours. The patient has been ordered repeat EKG. The patient is on BiPap 18/6 with 50% FIO2, rate of 16. The patient is on bedrest post cardiac catheterization and angioplasty. The patient's condition is critical. Prognosis is guarded to poor. Family aware. The patient is now made a DNR, DNR consent signed by the patient's next of kin and healthcare proxy. Jonah Loyd MD
[2018-07-14] MEDS: AMBRISENTAN 5 MG PO SCH (14:20)
--- NOTE | 2018-07-14 15:24 | CP.PCM.APN ---
Subjective - Subjective Subjective: pt seen and examined at bedside, asleep, s/p cath with Bipap therapy , NAD Objective - Vital Signs/Intake and Output Vital Signs (last 24 hours): Temp Pulse Resp BP Pulse Ox 97.8 F 83 17 136/74 94 L 07/13/18 15:40 07/14/18 14:25 07/14/18 10:50 07/14/18 14:25 07/14/18 10:50 - Medications Medications: Current Medications Acetaminophen (Tylenol 325mg Tab) 650 mg PO Q6 PRN PRN Reason: TEMP>=99.5F Acetaminophen (Tylenol 650 Mg Supp) 650 mg RC Q6H PRN PRN Reason: TEMP>=99.5F Arformoterol Tartrate (Brovana) 15 mcg IH [id number] [facility] Last Admin: 07/14/18 07:03 Dose: 15 mcg Ascorbic Acid (Vitamin C 500 Mg Tab) 500 mg PO BID [facility] Last Admin: 07/14/18 14:26 Dose: Not Given Aspirin (Ecotrin) 81 mg PO DAILY [facility] Last Admin: 07/14/18 07:05 Dose: 81 mg Atorvastatin Calcium (Lipitor) 40 mg PO DIN [facility] Last Admin: 07/13/18 17:00 Dose: Not Given Diltiazem HCl (Cardizem) 30 mg PO Q6 [facility] Last Admin: 07/14/18 14:25 Dose: 30 mg Docusate Sodium (Colace) 100 mg PO TID [facility] Last Admin: 07/14/18 14:25 Dose: 100 mg Escitalopram Oxalate (Lexapro) 5 mg PO HS [facility] Last Admin: 07/13/18 21:32 Dose: 5 mg Furosemide (Lasix) 20 mg IVP Q12 [facility] Last Admin: 07/14/18 11:05 Dose: 20 mg Heparin Sodium (Porcine) (Heparin) 5,000 units SC Q8H [facility]; Protocol Last Admin: 07/14/18 14:21 Dose: Not Given Levofloxacin/Dextrose (Levaquin 500mg) 500 mg in 100 mls @ 100 mls/hr IVPB DAILY [facility]; Protocol Last Admin: 07/14/18 11:06 Dose: 100 mls/hr Methylprednisolone (Solu-Medrol) 20 mg IVP Q8H [facility] Last Admin: 07/14/18 14:24 Dose: 20 mg Midodrine (Proamatine) 5 mg PO TID [facility] Last Admin: 07/14/18 14:25 Dose: 5 mg Montelukast Sodium (Singulair) 10 mg PO HS [facility] Last Admin: 07/13/18 21:32 Dose: 10 mg Multivitamins/Vitamin C (Multi-Delyn Liquid) 15 ml PO 0800 [facility] Last Admin: 07/14/18 10:57 Dose: Not Given Ambrisentan [ Letairis] 5 Mg ( Home Med) 5 mg PO DAILY [facility] Last Admin: 07/14/18 14:20 Dose: Not Given Ondansetron HCl (Zofran Inj) 4 mg IVP Q4H PRN PRN Reason: Nausea/Vomiting Pantoprazole Sodium (Protonix Ec Tab) 40 mg PO 0600 [facility] Last Admin: 07/14/18 07:16 Dose: 40 mg Sildenafil Citrate (Revatio) 20 mg PO TID [facility] Last Admin: 07/14/18 14:25 Dose: 20 mg - Labs Labs: 07/14/18 10:20 07/14/18 10:20 PT 11.2 SECONDS (9.4-12.5) 07/10/18 15:55 INR 0.98 07/10/18 15:55 APTT 28.6 Seconds (25.1-36.5) 07/10/18 15:55 - Constitutional Appears: No Acute Distress - Head Exam Head Exam: NORMOCEPHALIC - Eye Exam Eye Exam: Normal appearance Pupil Exam: PERRL - ENT Exam ENT Exam: Normal Exam - Respiratory Exam Respiratory Exam: Decreased Breath Sounds, NORMAL BREATHING PATTERN - Cardiovascular Exam Cardiovascular Exam: +S1, +S2 - GI/Abdominal Exam GI & Abdominal Exam: Normal Bowel Sounds - Extremities Exam Extremities Exam: Normal Capillary Refill - Psychiatric Exam Additional comments: asleep in NAD with BIpap on Assessment and Plan - Assessment and Plan (Free Text) Plan: 82 yr old white female with pmh sig for copd, severe pul htn, diastolic chf, cellulitis admitted with cp and palps transferred to ICu on 07/13 for closer mgmt of acute hypoxic episode and AMS pt is s/p cath today with ptca to RCA stenosis normal LV cath report reviewed asa, plavix rx 1 month #acute hypoxia /respiratory acidosis /hypercapnic resp failure continued ICU monitoring ABG noted 07/13 with Co 74, Hco3 36, ph 7.2 BiPAP regimen Brovana IV steroids 20 Q8 hrs #severe pul htn s/p left and right heart cath Revatio regimen 20TID RA mean pressure per cath report 18mmHg noted #new onset AFIB cardizem 30 q 6 cardiology consultation and recs noted #Right sided CHF /diastolic chf IV lasix 20 q12 Will continue to follow clinical course Shonna Christiansen BPCI/TIC - BPCIA/TIC Educated pt/family on BPCIA/CIR/Med to Bed Programs: N/A Flyers given, including CMS Beneficiary letter: N/A Pt/family verbalized understanding & agreed to program: N/A
--- NOTE | 2018-07-14 16:12 | CP.PCM.PCO ---
Addendum Addendum: 07/14/18 16:11 pt is on BIPAP, in respiratory distress, ICU, pt was not able to participate in interview, will follow up
[2018-07-14] MEDS: Mupirocin 2% Ointment 15 GM TUBE NS SCH (19:30)
[2018-07-15] MEDS: MethylPREDNISolone 40 mg Vial IVP SCH (04:30)
[2018-07-15] MEDS: Pantoprazole 40 mg EC Tab PO SCH (06:26)
[2018-07-15 06:56] LABS: GRAN # 8.14 (1.4-6.5); GRAN % 91.8 % (50.0-68.0); HEMOGLOBIN 10.2 g/dL (12.0-16.0); LYMPH # 0.2 (1.2-3.4); LYMPH % 2.7 % (22.0-35.0); MEAN CELL VOLUME 99.1 fl (80.0-105.0); MEAN CORPUSCULAR HEMOGLOBIN 29.8 pg (25.0-35.0); MEAN CORPUSCULAR HGB CONC 30.1 g/dl (31.0-37.0); MEAN PLATELET VOLUME 10.2 fl (7.0-11.0); MONO # 0.5 (0.1-0.6); MONO % 5.5 % (1.0-6.0); RBC 3.42 10^6/uL (3.5-6.1); RED CELL DISTRIBUTION WIDTH 15.5 % (11.5-14.5); WHITE BLOOD COUNT 8.9 10^3/uL (4.5-11.0)
[2018-07-15 07:11] LABS: ALB/GLOB RATIO 1.2 (1.1-1.8); ALBUMIN 3.1 g/dL (3.0-4.8); ALT/SGPT 40 U/L (7-56); AST/SGOT 24 U/L (14-36); BILIRUBIN,DIRECT 0.2 mg/dL (0.0-0.4); BLOOD UREA NITROGEN 36 mg/dL (7-21); CALCIUM 8.7 mg/dL (8.4-10.5); GFR NON-AFRICAN AMERICAN 53
[2018-07-15] MEDS: Arformoterol 15 mcg/2 ml Inh Sol IH SCH ×2 (08:08→20:53)
[2018-07-15] MEDS: Multi Vitamins 15 mL UD Oral Solution PO SCH (08:24)
--- NOTE | 2018-07-15 08:25 | CARD ---
APPROVED REPORT Date of service: 07/14/2018 EKG Measurement Heart [id number] <Conclusion> Atrial fibrillation Low voltage QRS Anterior infarct, age undetermined NSSTW changes
--- NOTE | 2018-07-15 09:03 | PN ---
DATE: 07/15/2018 CARDIOLOGY FOLLOWUP SUBJECTIVE: The patient is in bed on BiPAP, still complaining of shortness of breath. PHYSICAL EXAMINATION: VITAL SIGNS: Blood pressure 132/82 and heart rates in the 80s. NECK: Negative JVD. LUNGS: Decreased breath sounds. HEART: Reveal S1 and S2. EXTREMITIES: Without edema. LABORATORY DATA: Hemoglobin is 10.2. Chemistries, BUN and creatinine are 36/1.0. The arterial blood gases, the pH is improved for the last for that was measured. IMPRESSION; 1. Exacerbation of severe chronic obstructive pulmonary disease. 2. Marked pulmonary hypertension. 3. Percutaneous transluminal coronary angioplasty and stent of an eccentric stenosis in the proximal right coronary artery. 4. Resolution of chest pain. Given these findings, we will continue the aspirin and Plavix with Plavix for 3-4 weeks. The patient can be transferred out of the unit when the bed is available. Shaheed Handy MD
--- NOTE | 2018-07-15 09:17 | CP.CCUPN ---
<Vesta Rodas - Last Filed: 07/15/18 11:33> CCU Subjective - Physician Review Subjective (Free Text): Vesta Rodas, PGY-1, ICU Progress Note for Dr. Farah CC: substernal chest pain Patient seen and evaluated at bedside. Patient had no acute overnight events. Patient currently has no complaints and is comfortable on high flow oxygen. 12- point ROS was unremarkable except for what was mentioned above. 07/15/18 10:58 CCU Objective - Vital Signs / Intake & Output Vital Signs (Last 4 hours): Vital Signs Pulse Resp BP Pulse Ox 07/15/18 09:13 20 07/15/18 07:00 85 16 132/82 95 07/15/18 06:50 79 16 95 07/15/18 06:40 90 23 93 L 07/15/18 06:30 79 19 94 L 07/15/18 06:20 83 18 95 07/15/18 06:10 84 18 95 07/15/18 06:00 86 16 139/77 95 07/15/18 05:50 76 21 96 07/15/18 05:40 77 16 98 07/15/18 05:30 79 17 96 07/15/18 05:20 82 96 Intake and Output (Last 8hrs): Intake & Output 07/14/18 07/15/18 07/15/18 22:59 06:59 14:59 Intake Total 1480 200 Output Total 900 Balance 1480 -700 Intake: IV 1000 Right Forearm 1000 Oral 480 200 Output: Urine 900 Urine, Voided 900 Oral Regurgitation 0 Other: # Bowel Movements 0 - Physical Exam Head: Positive for: Atraumatic, Normocephalic Pupils: Positive for: PERRL Extroacular Muscles: Positive for: EOMI Conjunctiva: Positive for: Normal Mouth: Positive for: Moist Mucous Membranes Neck: Positive for: Normal Range of Motion Respiratory/Chest: Positive for: Decreased Breath Sounds (decreased in anterior lung rico). Negative for: Respiratory Distress, Accessory Muscle Use Cardiovascular: Positive for: Normal S1, S2. Negative for: Murmurs Abdomen: Negative for: Tenderness, Distention, Peritoneal Signs Back: Positive for: Normal Inspection Upper Extremity: Positive for: Normal Inspection. Negative for: Cyanosis, Edema Lower Extremity: Positive for: Edema (+3 pitting edema ) Neurological: Positive for: GCS=15, CN II-XII Intact, Speech Normal Skin: Positive for: Warm, Dry, Normal Color. Negative for: Rashes Psychiatric: Positive for: Alert, Oriented x 3, Normal Insight, Normal Karyn ntration - Medications Active Medications: Active Medications Generic Name Dose Route Start Last Admin Trade Name Freq PRN Reason Stop Dose Admin Acetaminophen 650 mg 07/10/18 18:08 Tylenol 325mg Tab PO Q6 PRN TEMP>=99.5F Acetaminophen 650 mg 07/10/18 18:08 Tylenol 650 Mg Supp RC Q6H PRN TEMP>=99.5F Arformoterol Tartrate 15 mcg 07/10/18 20:00 07/15/18 08:08 Brovana IH 15 mcg [id number] [facility] Administration Ascorbic Acid 500 mg 07/12/18 19:15 07/14/18 17:36 Vitamin C 500 Mg Tab PO 500 mg BID [facility] Administration Aspirin 81 mg 07/11/18 10:00 07/14/18 07:05 Ecotrin PO 81 mg DAILY [facility] Administration Atorvastatin Calcium 40 mg 07/10/18 18:15 07/14/18 17:37 Lipitor PO 40 mg DIN [facility] Administration Clopidogrel Bisulfate 75 mg 07/14/18 16:00 07/14/18 17:38 Plavix PO Not Given DAILY [facility] Diltiazem HCl 30 mg 07/11/18 18:00 07/15/18 06:25 Cardizem PO 30 mg Q6 [facility] Administration Docusate Sodium 100 mg 07/11/18 10:00 07/14/18 17:37 Colace PO 100 mg TID [facility] Administration Escitalopram Oxalate 5 mg 07/13/18 22:00 07/14/18 21:44 Lexapro PO 5 mg HS [facility] Administration Furosemide 20 mg 07/10/18 22:00 07/14/18 21:42 Lasix IVP 20 mg Q12 [facility] Administration Heparin Sodium (Porcine) 5,000 units 07/14/18 11:15 07/15/18 04:15 Heparin SC 5,000 units Q8H [facility] Administration Protocol Levofloxacin/Dextrose 500 mg in 100 mls @ 100 mls/hr 07/13/18 11:30 07/14/18 11:06 Levaquin 500mg IVPB 100 mls/hr DAILY [facility] Administration Protocol Methylprednisolone 20 mg 07/13/18 11:30 07/15/18 04:30 Solu-Medrol IVP 20 mg Q8H [facility] Administration Midodrine 5 mg 07/11/18 18:00 07/14/18 17:37 Proamatine PO 5 mg TID [facility] Administration Montelukast Sodium 10 mg 07/10/18 22:00 07/14/18 21:44 Singulair PO 10 mg HS [facility] Administration Multivitamins/Vitamin C 15 ml 07/13/18 08:00 07/15/18 08:24 Multi-Delyn Liquid PO 15 ml 0800 [facility] Administration Mupirocin 0 gm 07/14/18 19:15 07/14/18 19:30 Bactroban Ointment NS 07/19/18 10:01 1 applic BID [facility] Administration Ambrisentan [ 5 mg 07/11/18 10:00 07/14/18 14:20 Letairis] 5 Mg ( PO Not Given Home Med) [facility] Ondansetron HCl 4 mg 07/10/18 18:08 Zofran Inj IVP Q4H PRN Nausea/Vomiting Sildenafil Citrate 20 mg 07/11/18 10:00 07/14/18 17:37 Revatio PO 20 mg TID [facility] Administration - Patient Studies Lab Studies: Microbiology Studies 07/13/18 11:11 MRSA Culture (Admit) - Final Naris MRSA DETECTED Lab Studies 07/15/18 07/15/18 07/14/18 Range/Units 06:30 06:30 10:20 WBC 8.9 D 4.8 D (4.5-11.0) 10^3/uL RBC 3.42 L 3.81 (3.5-6.1) 10^6/uL Hgb 10.2 L 11.4 L (12.0-16.0) g/dL Hct 33.9 L 38.5 (36.0-48.0) % MCV 99.1 101.0 (80.0-105.0) fl MCH 29.8 29.9 (25.0-35.0) pg MCHC 30.1 L 29.6 L (31.0-37.0) g/dl RDW 15.5 H 15.6 H (11.5-14.5) % Plt Count 161 188 (120.0-450.0) 10^3/uL MPV 10.2 9.5 (7.0-11.0) fl Gran % 91.8 H 91.1 H (50.0-68.0) % Lymph % (Auto) 2.7 L 6.2 L (22.0-35.0) % Motley % (Auto) 5.5 2.7 (1.0-6.0) % Eos % (Auto) 0.0 L 0.0 L (1.5-5.0) % Baso % (Auto) 0.0 0.0 (0.0-3.0) % Gran # 8.14 H 4.41 (1.4-6.5) Lymph # (Auto) 0.2 L 0.3 L (1.2-3.4) Motley # (Auto) 0.5 0.1 (0.1-0.6) Eos # (Auto) 0.0 0.0 (0.0-0.7) Baso # (Auto) 0.00 0.00 (0.0-2.0) K/mm3 Neutrophils % (Manual) 91 H (50.0-70.0) % Lymphocytes % (Manual) 6 L (22.0-35.0) % Atypical Lymphs % 1 H (0.0-0.0) % Monocytes % (Manual) 2 (1.0-6.0) % Platelet Evaluation Normal (NORMAL) Hypochromasia 1+ Anisocytosis (manual) 1+ Macrocytosis (manual) 1+ Sodium 139 (132-148) mmol/L Potassium 4.1 (3.6-5.0) mmol/L Chloride 98 (98-107) mmol/L Carbon Dioxide 39 H (21-33) mmol/L Anion Gap 7 L (10-20) BUN 36 H (7-21) mg/dL Creatinine 1.0 (0.7-1.2) mg/dl Est GFR ( Amer) > 60 Est GFR (Non-Af Amer) 53 Random Glucose 126 H (70-110) mg/dL Calcium 8.7 (8.4-10.5) mg/dL Phosphorus 3.1 (2.5-4.5) mg/dL Magnesium 1.9 (1.7-2.2) mg/dL Total Bilirubin 0.5 (0.2-1.3) mg/dL Direct Bilirubin 0.2 (0.0-0.4) mg/dL AST 24 (14-36) U/L ALT 40 (7-56) U/L Alkaline Phosphatase 54 (38-126) U/L Total Protein 5.7 L (5.8-8.3) g/dL Albumin 3.1 (3.0-4.8) g/dL Globulin 2.6 gm/dL Albumin/Globulin Ratio 1.2 (1.1-1.8) 07/14/18 Range/Units 10:20 WBC (4.5-11.0) 10^3/uL RBC (3.5-6.1) 10^6/uL Hgb (12.0-16.0) g/dL Hct (36.0-48.0) % MCV (80.0-105.0) fl MCH (25.0-35.0) pg MCHC (31.0-37.0) g/dl RDW (11.5-14.5) % Plt Count (120.0-450.0) 10^3/uL MPV (7.0-11.0) fl Gran % (50.0-68.0) % Lymph % (Auto) (22.0-35.0) % Motley % (Auto) (1.0-6.0) % Eos % (Auto) (1.5-5.0) % Baso % (Auto) (0.0-3.0) % Gran # (1.4-6.5) Lymph # (Auto) (1.2-3.4) Motley # (Auto) (0.1-0.6) Eos # (Auto) (0.0-0.7) Baso # (Auto) (0.0-2.0) K/mm3 Neutrophils % (Manual) (50.0-70.0) % Lymphocytes % (Manual) (22.0-35.0) % Atypical Lymphs % (0.0-0.0) % Monocytes % (Manual) (1.0-6.0) % Platelet Evaluation (NORMAL) Hypochromasia Anisocytosis (manual) Macrocytosis (manual) Sodium 136 (132-148) mmol/L Potassium 4.8 (3.6-5.0) mmol/L Chloride 98 (98-107) mmol/L Carbon Dioxide 34 H (21-33) mmol/L Anion Gap 9 L (10-20) BUN 38 H (7-21) mg/dL Creatinine 0.9 (0.7-1.2) mg/dl Est GFR ( Amer) > 60 Est GFR (Non-Af Amer) 60 Random Glucose 156 H (70-110) mg/dL Calcium 8.7 (8.4-10.5) mg/dL Phosphorus 4.1 (2.5-4.5) mg/dL Magnesium 1.9 (1.7-2.2) mg/dL Total Bilirubin 0.5 (0.2-1.3) mg/dL Direct Bilirubin 0.3 (0.0-0.4) mg/dL AST 22 (14-36) U/L ALT 41 (7-56) U/L Alkaline Phosphatase 59 (38-126) U/L Total Protein 6.3 (5.8-8.3) g/dL Albumin 3.5 (3.0-4.8) g/dL Globulin 2.9 gm/dL Albumin/Globulin Ratio 1.2 (1.1-1.8) Laboratory Results - last 24 hr 07/14/18 07/14/18 07/15/18 10:20 10:20 06:30 WBC 4.8 D RBC 3.81 Hgb 11.4 L Hct 38.5 MCV 101.0 MCH 29.9 MCHC 29.6 L RDW 15.6 H Plt Count 188 MPV 9.5 Gran % 91.1 H Lymph % (Auto) 6.2 L Motley % (Auto) 2.7 Eos % (Auto) 0.0 L Baso % (Auto) 0.0 Gran # 4.41 Lymph # (Auto) 0.3 L Motley # (Auto) 0.1 Eos # (Auto) 0.0 Baso # (Auto) 0.00 Neutrophils % (Manual) 91 H Lymphocytes % (Manual) 6 L Atypical Lymphs % 1 H Monocytes % (Manual) 2 Platelet Evaluation Normal Hypochromasia 1+ Anisocytosis (manual) 1+ Macrocytosis (manual) 1+ Sodium 136 139 Potassium 4.8 4.1 Chloride 98 98 Carbon Dioxide 34 H 39 H Anion Gap 9 L 7 L BUN 38 H 36 H Creatinine 0.9 1.0 Est GFR ( Amer) > 60 > 60 Est GFR (Non-Af Amer) 60 53 Random Glucose 156 H 126 H Calcium 8.7 8.7 Phosphorus 4.1 3.1 Magnesium 1.9 1.9 Total Bilirubin 0.5 0.5 Direct Bilirubin 0.3 0.2 AST 22 24 ALT 41 40 Alkaline Phosphatase 59 54 Total Protein 6.3 5.7 L Albumin 3.5 3.1 Globulin 2.9 2.6 Albumin/Globulin Ratio 1.2 1.2 07/15/18 06:30 WBC 8.9 D RBC 3.42 L Hgb 10.2 L Hct 33.9 L MCV 99.1 MCH 29.8 MCHC 30.1 L RDW 15.5 H Plt Count 161 MPV 10.2 Gran % 91.8 H Lymph % (Auto) 2.7 L Motley % (Auto) 5.5 Eos % (Auto) 0.0 L Baso % (Auto) 0.0 Gran # 8.14 H Lymph # (Auto) 0.2 L Motley # (Auto) 0.5 Eos # (Auto) 0.0 Baso # (Auto) 0.00 Neutrophils % (Manual) Lymphocytes % (Manual) Atypical Lymphs % Monocytes % (Manual) Platelet Evaluation Hypochromasia Anisocytosis (manual) Macrocytosis (manual) Sodium Potassium Chloride Carbon Dioxide Anion Gap BUN Creatinine Est GFR ( Amer) Est GFR (Non-Af Amer) Random Glucose Calcium Phosphorus Magnesium Total Bilirubin Direct Bilirubin AST ALT Alkaline Phosphatase Total Protein Albumin Globulin Albumin/Globulin Ratio EKG/Cardiology Studies: Cardiology / EKG Studies 07/14/18 10:22 ELECTROCARDIOGRAM Urgent Comment: 12 lead EKG upon arrival in unit Reason For Exam: post ptca 07/15/18 10:30 ELECTROCARDIOGRAM DAILY Comment: Reason For Exam: chest pain Critical Care Progress Note - Nutrition Nutrition: Nutrition Category Date Time Status Heart Healthy Diet [DIET] Diets 07/11/18 Breakfast Active Assessment/Plan - Assessment and Plan (Free Text) Assessment: 82 year old female with past medical history of atrial fibrillation, COPD, pulmonary hypertension, and diastolic CHF initially presented to the hospital with crushing substernal chest pain while working with physical therapy. Hypercapneic Respiratory Failure 2/2 to COPD Right Ventricular Failure Pulmonary Hypertension Atrial Fibrillation Plan: Neuro: -AAOx3, No FND, moving extremities past midline. -Monitor neuro status. -Reorient patient as necessary. Cardio: Diastolic Congestive Heart Failure -RRR, normotensive, no signs of HD compromise -Last echocardiogram from 04/2018: EF: 68% -CXR from 07/13: cardiomegaly, hypoinflated lungs, bilateral pleural effusion and associated consolidating pulmonary venous congestion -Continue with aspirin 81 daily, lipitor 40 mg daily, cardizem 30 mg Q6, lasix 20 mg Q12 -Patient had cardiac catherization on 07/14 showing RASP of 18, could not advance to right ventricle. RCA was 70% occluded and 1 bare metal stent was placed. LAD and LCx had atherosclerotic plaques. LVEF of 60% -Maintain MAP>65. -Monitor for S/S, HD compromise. Atrial Fibrillation with RVR -EKG 07/14: Atrial Fibrillation with RVR with HR: 76 -Continue with cardizem 30 mg Q6, not currently on therapeutic anticoagulation. -Follow up with Cardiology, Dr. Handy, for further recommendations. Pulm: Hypercapneic Respiratory Failure 2/2 to COPD -Patient currently on BiPap -CXR from 07/13: cardiomegaly, hypoinflated lungs, bilateral pleural effusion and associated consolidating pulmonary venous congestion -Continue with brovana 15 mcg Q12, singulair 10 mg HS -Taper steroids. Stop solumedrol 20 mg IV Q8 and start prednisone 40 mg daily. -Maintain O2 saturation>95%. -Elevate bed to 30 degrees Pulmonary Hypertension -Last RVSP: 145 -Continue with letairis 5 mg PO daily and revatio 20 mg PO TID GI: Diet -HHD GI Prophylaxis -Protonix 40 mg PO daily /Nephro: -BUN/Cr stable at 36/1 -Good urine output with fried intact -Continue monitoring. -Replete electrolytes as needed. -Maintain euvolemia. Endocrinology: -Random glucose: 126 -Maintain euglycemia. Heme/Onc: -H/H stable at 10.2/33.9 -No signs of HD compromise. -Continue monitoring H/H DVT prophylaxis -SCD, heparin 5000 U subq Q8 ID: Rule out pneumonia -Afebrile, no leukocytosis -CXR from 07/13: cardiomegaly, hypoinflated lungs, bilateral pleural effusion and associated consolidating pulmonary venous congestion -Follow up urine legionella antigen, S. Pneumonia antigen, influenza A and B, and MRSA screen. -Continue with levaquin 500 mg daily day 3. -Monitor for signs and symptoms of infection. Psych: Depression -As per Dr. Childers, Psychiatry, continue with lexapro 5 mg PO HS Dispo: Patient is currently DNR/DNI. Patient seen and examined with Dr. Farah. - Date & Time Date: 07/15/18 Time: 09:17 <Segun Farah - Last Filed: 07/15/18 12:42> CCU Objective - Vital Signs / Intake & Output Vital Signs (Last 4 hours): Vital Signs Resp BP 07/15/18 10:04 129/62 07/15/18 09:13 20 Intake and Output (Last 8hrs): Intake & Output 07/14/18 07/15/18 07/15/18 22:59 06:59 14:59 Intake Total 1480 200 Output Total 900 Balance 1480 -700 Intake: IV 1000 Right Forearm 1000 Oral 480 200 Output: Urine 900 Urine, Voided 900 Oral Regurgitation 0 Other: # Bowel Movements 0 - Medications Active Medications: Active Medications Generic Name Dose Route Start Last Admin Trade Name Freq PRN Reason Stop Dose Admin Acetaminophen 650 mg 07/10/18 18:08 Tylenol 325mg Tab PO Q6 PRN TEMP>=99.5F Acetaminophen 650 mg 07/10/18 18:08 Tylenol 650 Mg Supp RC Q6H PRN TEMP>=99.5F Arformoterol Tartrate 15 mcg 07/10/18 20:00 07/15/18 08:08 Brovana IH 15 mcg [id number] ARAM Administration Ascorbic Acid 500 mg 07/12/18 19:15 07/15/18 10:03 Vitamin C 500 Mg Tab PO 500 mg BID [facility] Administration Aspirin 81 mg 07/11/18 10:00 07/15/18 10:03 Ecotrin PO 81 mg DAILY [facility] Administration Atorvastatin Calcium 40 mg 07/10/18 18:15 07/14/18 17:37 Lipitor PO 40 mg DIN [facility] Administration Clopidogrel Bisulfate 75 mg 07/14/18 16:00 07/15/18 10:03 Plavix PO 75 mg DAILY [facility] Administration Diltiazem HCl 30 mg 07/11/18 18:00 07/15/18 06:25 Cardizem PO 30 mg Q6 [facility] Administration Docusate Sodium 100 mg 07/11/18 10:00 07/15/18 10:03 Colace PO 100 mg TID [facility] Administration Escitalopram Oxalate 5 mg 07/13/18 22:00 07/14/18 21:44 Lexapro PO 5 mg HS [facility] Administration Furosemide 20 mg 07/10/18 22:00 07/15/18 10:04 Lasix IVP 20 mg Q12 [facility] Administration Heparin Sodium (Porcine) 5,000 units 07/14/18 11:15 07/15/18 04:15 Heparin SC 5,000 units Q8H [facility] Administration Protocol Levofloxacin/Dextrose 500 mg in 100 mls @ 100 mls/hr 07/13/18 11:30 07/15/18 10:03 Levaquin 500mg IVPB 100 mls/hr DAILY [facility] Administration Protocol Midodrine 5 mg 07/11/18 18:00 07/15/18 10:03 Proamatine PO 5 mg TID [facility] Administration Montelukast Sodium 10 mg 07/10/18 22:00 07/14/18 21:44 Singulair PO 10 mg HS [facility] Administration Multivitamins/Vitamin C 15 ml 07/13/18 08:00 07/15/18 08:24 Multi-Delyn Liquid PO 15 ml 0800 [facility] Administration Mupirocin 0 gm 07/14/18 19:15 07/15/18 10:04 Bactroban Ointment NS 07/19/18 10:01 1 applic BID [facility] Administration Ambrisentan [ 5 mg 07/11/18 10:00 07/14/18 14:20 Letairis] 5 Mg ( PO Not Given Home Med) DAILY [facility] Ondansetron HCl 4 mg 07/10/18 18:08 Zofran Inj IVP Q4H PRN Nausea/Vomiting Prednisone 40 mg 07/15/18 10:00 07/15/18 10:07 Prednisone Tab PO 40 mg DAILY [facility] Administration Sildenafil Citrate 20 mg 07/11/18 10:00 07/15/18 10:03 Revatio PO 20 mg TID [facility] Administration - Patient Studies Lab Studies: Microbiology Studies 07/13/18 11:11 MRSA Culture (Admit) - Final Naris MRSA DETECTED Lab Studies 07/15/18 07/15/18 Range/Units 06:30 06:30 WBC 8.9 D (4.5-11.0) 10^3/uL RBC 3.42 L (3.5-6.1) 10^6/uL Hgb 10.2 L (12.0-16.0) g/dL Hct 33.9 L (36.0-48.0) % MCV 99.1 (80.0-105.0) fl MCH 29.8 (25.0-35.0) pg MCHC 30.1 L (31.0-37.0) g/dl RDW 15.5 H (11.5-14.5) % Plt Count 161 (120.0-450.0) 10^3/uL MPV 10.2 (7.0-11.0) fl Gran % 91.8 H (50.0-68.0) % Lymph % (Auto) 2.7 L (22.0-35.0) % Motley % (Auto) 5.5 (1.0-6.0) % Eos % (Auto) 0.0 L (1.5-5.0) % Baso % (Auto) 0.0 (0.0-3.0) % Gran # 8.14 H (1.4-6.5) Lymph # (Auto) 0.2 L (1.2-3.4) Motley # (Auto) 0.5 (0.1-0.6) Eos # (Auto) 0.0 (0.0-0.7) Baso # (Auto) 0.00 (0.0-2.0) K/mm3 Sodium 139 (132-148) mmol/L Potassium 4.1 (3.6-5.0) mmol/L Chloride 98 (98-107) mmol/L Carbon Dioxide 39 H (21-33) mmol/L Anion Gap 7 L (10-20) BUN 36 H (7-21) mg/dL Creatinine 1.0 (0.7-1.2) mg/dl Est GFR ( Amer) > 60 Est GFR (Non-Af Amer) 53 Random Glucose 126 H (70-110) mg/dL Calcium 8.7 (8.4-10.5) mg/dL Phosphorus 3.1 (2.5-4.5) mg/dL Magnesium 1.9 (1.7-2.2) mg/dL Total Bilirubin 0.5 (0.2-1.3) mg/dL Direct Bilirubin 0.2 (0.0-0.4) mg/dL AST 24 (14-36) U/L ALT 40 (7-56) U/L Alkaline Phosphatase 54 (38-126) U/L Total Protein 5.7 L (5.8-8.3) g/dL Albumin 3.1 (3.0-4.8) g/dL Globulin 2.6 gm/dL Albumin/Globulin Ratio 1.2 (1.1-1.8) Laboratory Results - last 24 hr 07/15/18 07/15/18 06:30 06:30 WBC 8.9 D RBC 3.42 L Hgb 10.2 L Hct 33.9 L MCV 99.1 MCH 29.8 MCHC 30.1 L RDW 15.5 H Plt Count 161 MPV 10.2 Gran % 91.8 H Lymph % (Auto) 2.7 L Motley % (Auto) 5.5 Eos % (Auto) 0.0 L Baso % (Auto) 0.0 Gran # 8.14 H Lymph # (Auto) 0.2 L Motley # (Auto) 0.5 Eos # (Auto) 0.0 Baso # (Auto) 0.00 Sodium 139 Potassium 4.1 Chloride 98 Carbon Dioxide 39 H Anion Gap 7 L BUN 36 H Creatinine 1.0 Est GFR ( Amer) > 60 Est GFR (Non-Af Amer) 53 Random Glucose 126 H Calcium 8.7 Phosphorus 3.1 Magnesium 1.9 Total Bilirubin 0.5 Direct Bilirubin 0.2 AST 24 ALT 40 Alkaline Phosphatase 54 Total Protein 5.7 L Albumin 3.1 Globulin 2.6 Albumin/Globulin Ratio 1.2 EKG/Cardiology Studies: Cardiology / EKG Studies 07/15/18 10:30 ELECTROCARDIOGRAM DAILY Comment: Reason For Exam: chest pain Critical Care Progress Note - Nutrition Nutrition: Nutrition Category Date Time Status Heart Healthy Diet [DIET] Diets 07/11/18 Breakfast Active Assessment/Plan - Assessment and Plan (Free Text) Plan: Patient seen and examined on rounds with resident, agree with note with following additions/exceptions: Patient is 82yo female with PMhx Afib not on A/C, COPD, pulmonary hypertension, and diastolic CHF, admitted with chest pain and COPD exacerbation, underwent PCI yesterday, RCA stent. Currently afebrile, BP stable, comfortable in NAD on high flow O2 50% 50LPM, o2 sat 92% Labs, imaging, chart reviewed. NO Major complaints Unstable angina s/p PCI COPD Afib Severe Pulm HTN Diastolic CHF Recommend: - high flow o2 as needed, goal sat 90%, pt is DNR/DNI - Duonebs PRN - Solumedrol 20mg IV TID - ASA, Plavix, Statin, Cardizem - Abx , Levaquin - continue with Letairis 5 mg PO daily and Revatio 20 mg PO TID - FS control - monitor LFTs, UOP - I/Os, daily weights - GI ppx - DVT ppx, HSQ - Stable, transfer to telemetry DNR/DNI Critical care time 35 minutes
[2018-07-15] MEDS: levoFLOXacin 500 mg in D5W 500 MG/100 ML BAG IVPB SCH (10:03)
[2018-07-15] MEDS: Sildenafil 20 MG TAB PO SCH ×3 (10:03→20:17)
[2018-07-15] MEDS: Mupirocin 2% Ointment 15 GM TUBE NS SCH ×2 (10:04→20:17)
--- NOTE | 2018-07-15 13:17 | CARD ---
APPROVED REPORT Date of service: 07/15/2018 EKG Measurement Heart [id number] <Conclusion> Atrial fibrillation Low voltage QRS Possible Anterolateral infarct, age undetermined Abnormal ECG
[2018-07-15] MEDS: AMBRISENTAN 5 MG PO SCH (13:28)
--- NOTE | 2018-07-15 13:45 | CP.PCM.APN ---
Subjective - Subjective Subjective: pt seen at bedside with family present, pt with high flow -02 , tolerating well Pt offfers no complaints at this time, states breathing is much improved Review of Systems - Review of Systems All systems: reviewed and no additional remarkable complaints except - EENT Eyes: As Per HPI Objective - Vital Signs/Intake and Output Vital Signs (last 24 hours): Temp Pulse Resp BP Pulse Ox 97.7 F 85 20 129/62 95 07/15/18 04:00 07/15/18 07:00 07/15/18 13:17 07/15/18 10:04 07/15/18 07:00 Intake and Output: 07/15/18 07/15/18 06:59 18:59 Intake Total 200 Output Total 900 Balance -700 - Medications Medications: Current Medications Acetaminophen (Tylenol 325mg Tab) 650 mg PO Q6 PRN PRN Reason: TEMP>=99.5F Acetaminophen (Tylenol 650 Mg Supp) 650 mg RC Q6H PRN PRN Reason: TEMP>=99.5F Arformoterol Tartrate (Brovana) 15 mcg IH [id number] [facility] Last Admin: 07/15/18 08:08 Dose: 15 mcg Ascorbic Acid (Vitamin C 500 Mg Tab) 500 mg PO BID [facility] Last Admin: 07/15/18 10:03 Dose: 500 mg Aspirin (Ecotrin) 81 mg PO DAILY [facility] Last Admin: 07/15/18 10:03 Dose: 81 mg Atorvastatin Calcium (Lipitor) 40 mg PO DIN [facility] Last Admin: 07/14/18 17:37 Dose: 40 mg Clopidogrel Bisulfate (Plavix) 75 mg PO DAILY [facility] Last Admin: 07/15/18 10:03 Dose: 75 mg Diltiazem HCl (Cardizem) 30 mg PO Q6 [facility] Last Admin: 07/15/18 06:25 Dose: 30 mg Docusate Sodium (Colace) 100 mg PO TID [facility] Last Admin: 07/15/18 10:03 Dose: 100 mg Escitalopram Oxalate (Lexapro) 5 mg PO HS [facility] Last Admin: 07/14/18 21:44 Dose: 5 mg Furosemide (Lasix) 20 mg IVP Q12 [facility] Last Admin: 07/15/18 10:04 Dose: 20 mg Heparin Sodium (Porcine) (Heparin) 5,000 units SC Q8H [facility]; Protocol Last Admin: 07/15/18 04:15 Dose: 5,000 units Levofloxacin/Dextrose (Levaquin 500mg) 500 mg in 100 mls @ 100 mls/hr IVPB DAILY [facility]; Protocol Last Admin: 07/15/18 10:03 Dose: 100 mls/hr Midodrine (Proamatine) 5 mg PO TID [facility] Last Admin: 07/15/18 10:03 Dose: 5 mg Montelukast Sodium (Singulair) 10 mg PO HS [facility] Last Admin: 07/14/18 21:44 Dose: 10 mg Multivitamins/Vitamin C (Multi-Delyn Liquid) 15 ml PO 0800 [facility] Last Admin: 07/15/18 08:24 Dose: 15 ml Mupirocin (Bactroban Ointment) 0 gm NS BID [facility] Stop: 07/19/18 10:01 Last Admin: 07/15/18 10:04 Dose: 1 applic Ambrisentan [ Letairis] 5 Mg ( Home Med) 5 mg PO DAILY [facility] Last Admin: 07/14/18 14:20 Dose: Not Given Ondansetron HCl (Zofran Inj) 4 mg IVP Q4H PRN PRN Reason: Nausea/Vomiting Prednisone (Prednisone Tab) 40 mg PO DAILY [facility] Last Admin: 07/15/18 10:07 Dose: 40 mg Sildenafil Citrate (Revatio) 20 mg PO TID [facility] Last Admin: 07/15/18 10:03 Dose: 20 mg - Labs Labs: 07/15/18 06:30 07/15/18 06:30 PT 11.2 SECONDS (9.4-12.5) 07/10/18 15:55 INR 0.98 07/10/18 15:55 APTT 28.6 Seconds (25.1-36.5) 07/10/18 15:55 - Constitutional Appears: No Acute Distress, Chronically Ill - Head Exam Head Exam: NORMOCEPHALIC - Eye Exam Eye Exam: Normal appearance - ENT Exam ENT Exam: Mucous Membranes Moist, Normal Exam - Neck Exam Neck Exam: Normal Inspection - Respiratory Exam Respiratory Exam: Decreased Breath Sounds, NORMAL BREATHING PATTERN - Cardiovascular Exam Cardiovascular Exam: +S1, +S2 - GI/Abdominal Exam GI & Abdominal Exam: Normal Bowel Sounds - Extremities Exam Extremities Exam: Normal Inspection - Neurological Exam Neurological Exam: Alert, Awake - Psychiatric Exam Psychiatric exam: Normal Affect, Normal Mood - Skin Skin Exam: Dry, Intact Assessment and Plan - Assessment and Plan (Free Text) Plan: 82 yr old white female with pmh sig for copd, severe pul htn, diastolic chf, cellulitis admitted with cp and palps transferred to ICu on 07/13 for closer mgmt of acute hypoxic episode and severe pul htn. # ptca to RCA stenosis normal LV cath report reviewed asa, plavix rx 1 month per cardiology recs #acute hypoxia /respiratory acidosis /hypercapnic resp failure continued ICU monitoring pt on high flow 02- will monitor , weaning as tolerated Brovana regimen, IV steroids converted to po prednisone today #severe pul htn s/p left and right heart cath Revatio regimen 20TID RA mean pressure per cath report 18mmHg noted cm note rev'd re : home vs [facility] ([facility]) as DC plan. PT eval noted. will continue to follow BPCI/TIC - BPCIA/TIC Educated pt/family on BPCIA/CIR/Med to Bed Programs: Yes Flyers given, including CMS Beneficiary letter: Yes Pt/family verbalized understanding & agreed to program: Yes
--- NOTE | 2018-07-15 16:23 | PN ---
DATE: 07/15/2018 SUBJECTIVE: The patient is in ICU, bed 3. The patient is lying in the bed. Overnight nurse's notes were reviewed. No adverse events were reported or documented or notified. The patient continued on BiPAP for pulmonary and respiratory support. OBJECTIVE: VITAL SIGNS: T max is 97.3, heart rate 76-85. Telemetry shows atrial fibrillation. Blood pressure 130/82, respirations 16, O2 sat 95%. HEENT: Head: Normocephalic, atraumatic. HEENT examination shows pinkish pale conjunctivae. Anicteric sclerae. No oropharyngeal lesion. NECK: No neck rigidity. CHEST: Kyphosis. LUNGS: Shows decreased breath sound at the bases. Positive creps, rhonchi noted bilaterally. Decreased breath sounds noted at the bases bilaterally. CARDIOVASCULAR: S1, S2, irregular rhythm. Positive systolic murmur, left sternal border, right second intercostal space, left second intercostal space. ABDOMEN: Soft. Positive bowel sound. No palpable hepatosplenomegaly. GENITALIA: Female. RECTAL: Deferred. EXTREMITIES: Shows trace swelling of the lower extremity with some superficial skin breakdown noted. GAIT: Not tested. VASCULAR: Palpable pulses. DIAGNOSTICS: 07/15, WBC 8.9, hemoglobin and hematocrit 10.2, 33.9, platelet 161. Granulocytes 92% segs. Sodium 39, potassium 4.1. Chloride 98, CO2 39, BUN 36, creatinine 1.0, glucose 126, calcium 8.7, phosphorus 3.1, magnesium 1.9. MRSA nares is positive. IMPRESSION AND PLAN: 1. Acute hypoxic hypercarbic respiratory failure with severe respiratory acidosis and hypercarbia and CO2 narcosis. 2. Normocytic anemia. 3. Granulocytosis. 4. Mild prerenal kidney injury. 5. Positive methicillin resistant Staphylococcus aureus nares. 6. Severe advanced pulmonary hypertension with severely elevated right atrial pressure. 7. Single-vessel coronary artery disease with 70% stenosis of the proximal right coronary artery status post successful angioplasty with bare-metal stent placement of the right coronary artery disease. 8. Bicarb requiring respiratory failure. 9. Gait dysfunction. 10. New-onset atrial fibrillation with rapid ventricular response. 11. Bilateral pleural effusion. 12. Possible atelectasis. 13. Status post cardiac catheterization and angioplasty of the 70% stenosis of the right coronary artery. 14. Successful angioplasty and bare-metal stent placement of the right coronary artery 70% stenosis. 15. New onset congestive heart failure with history of pulmonary hypertension and severely elevated right ventricular systolic pressure. PLAN: At this time, the patient is to be continued on therapeutic intervention as per AUG. We are awaiting further recommendations, evaluation and clearance by Cardiology and Pulmonary regarding the patient's consideration for transfer out of the ICU. The patient will be continued on the medications as per the MAR, which include 5 mg daily, Revatio 20 mg three times a day. The patient is on nebulizer treatment. The patient has been ordered DVT, GI prophylaxis. The patient has been ordered repeat labs for the morning. The patient will be considered for possible transfer out of ICU if cleared by Pulmonary and Cardiology. The patient is to be continued on all the therapeutic intervention as per the MAR of today. The patient is currently being followed by Cardiology and other subspecialty. The patient's overall prognosis is guarded to poor. The patient's nephew, Gabriel, who was being present in the exam in the ICU yesterday at bedside was updated about the patient's overall guarded to poor prognosis, clinical condition. All the test results discussed and explained to the patient's nephew at length. The patient's overall prognosis is guarded to poor. Dictated and electronically signed, not read. Jonah Loyd MD
[2018-07-15 16:57] LABS: GRAN # 9.17 (1.4-6.5); GRAN % 87.9 % (50.0-68.0); HEMOGLOBIN 8.2 g/dL (12.0-16.0); LYMPH # 0.4 (1.2-3.4); LYMPH % 3.5 % (22.0-35.0); MEAN CELL VOLUME 98.5 fl (80.0-105.0); MEAN CORPUSCULAR HEMOGLOBIN 30.3 pg (25.0-35.0); MEAN CORPUSCULAR HGB CONC 30.7 g/dl (31.0-37.0); MEAN PLATELET VOLUME 9.8 fl (7.0-11.0); MONO # 0.9 (0.1-0.6); MONO % 8.6 % (1.0-6.0); RBC 2.71 10^6/uL (3.5-6.1); RED CELL DISTRIBUTION WIDTH 15.6 % (11.5-14.5); WHITE BLOOD COUNT 10.4 10^3/uL (4.5-11.0)
[2018-07-16] MEDS: Morphine 2 mg/ml ISec IVP PRN (02:48)
[2018-07-16 03:13] LABS: GRAN # 9.11 (1.4-6.5); HEMOGLOBIN 8.5 g/dL (12.0-16.0); LYMPH # 0.7 (1.2-3.4); LYMPH % 6.5 % (22.0-35.0); MEAN CORPUSCULAR HEMOGLOBIN 30.5 pg (25.0-35.0); MEAN CORPUSCULAR HGB CONC 32.1 g/dl (31.0-37.0); MONO # 0.5 (0.1-0.6); MONO % 4.5 % (1.0-6.0); RBC 2.79 10^6/uL (3.5-6.1); RED CELL DISTRIBUTION WIDTH 15.9 % (11.5-14.5); WHITE BLOOD COUNT 10.2 10^3/uL (4.5-11.0)
[2018-07-16 05:38] LABS: ALB/GLOB RATIO 1.2 (1.1-1.8); ALBUMIN 2.7 g/dL (3.0-4.8); ALT/SGPT 39 U/L (7-56); AST/SGOT 27 U/L (14-36); BILIRUBIN,DIRECT 0.3 mg/dL (0.0-0.4); BLOOD UREA NITROGEN 41 mg/dL (7-21); CALCIUM 8.5 mg/dL (8.4-10.5); GFR NON-AFRICAN AMERICAN 60
[2018-07-16] MEDS ORDERED: Sodium Chloride 0.9% 500 ML IV STA (05:42)
[2018-07-16 05:57] LABS: HEMOGLOBIN 7.2 g/dL (12.0-16.0); MEAN CELL VOLUME 95.8 fl (80.0-105.0); MEAN CORPUSCULAR HEMOGLOBIN 30.5 pg (25.0-35.0); MEAN CORPUSCULAR HGB CONC 31.9 g/dl (31.0-37.0); MEAN PLATELET VOLUME 10.2 fl (7.0-11.0); RBC 2.36 10^6/uL (3.5-6.1); RED CELL DISTRIBUTION WIDTH 16.4 % (11.5-14.5); WHITE BLOOD COUNT 9.7 10^3/uL (4.5-11.0)
[2018-07-16] MEDS: Arformoterol 15 mcg/2 ml Inh Sol IH SCH ×2 (07:34→20:26)
[2018-07-16 08:38] LABS: INR 1.08; PARTIAL THROMBOPLASTIN TIME 27.5 Seconds (25.1-36.5); PROTHROMBIN TIME 12.4 SECONDS (9.4-12.5)
--- NOTE | 2018-07-16 08:55 | CP.CCUPN ---
<Vesta Rodas - Last Filed: 07/16/18 11:57> CCU Subjective - Physician Review Subjective (Free Text): Vesta Rodas, PGY-1, ICU Progress Note for Dr. Londono CC: substernal chest pain Patient seen and evaluated at bedside. Patient had hematoma on right thigh after physical therapy near the site of the cardiac catherization. Patient was in severe pain at that time and morphine 2 mg Q4PRN was started for the patient. Patient was hypotensive overnight with blood pressure of 87/31 and patient's hemoglobin dropped and was given 2 U of PRBCs. Patient's hemoglobin dropped to 7.2 this morning and was transfused 2 more units PRBCs for active bleed. Patient currently has no complaints and is comfortable on high flow oxygen. 12-point ROS was unremarkable except for what was mentioned above. CCU Objective - Vital Signs / Intake & Output Vital Signs (Last 4 hours): Vital Signs Temp Pulse Resp BP Pulse Ox 07/16/18 08:37 98.6 F 95 H 15 98/49 L 07/16/18 07:30 98.4 F 85 25 H 97 07/16/18 07:20 98.4 F 93 H 18 95 07/16/18 07:10 98.4 F 91 H 18 95 07/16/18 07:01 98.4 F 98 H 20 107/50 L 100 07/16/18 07:00 98.4 F 98 H 15 100 07/16/18 06:50 98.4 F 87 12 100 07/16/18 06:40 98.4 F 83 15 100 07/16/18 06:30 98.4 F 83 17 100 07/16/18 06:20 98.4 F 86 17 100 07/16/18 06:14 98.4 F 98 H 14 96/55 L 100 07/16/18 06:10 98.4 F 89 14 95 07/16/18 06:00 98.4 F 90 16 87/52 L 100 07/16/18 05:52 98.4 F 92 H 18 107/53 L 100 07/16/18 05:50 98.4 F 99 H 20 100 07/16/18 05:40 98.4 F 109 H 24 100 07/16/18 05:33 98.4 F 87 13 87/36 L 100 07/16/18 05:30 98.4 F 92 H 19 100 07/16/18 05:20 98.4 F 84 13 100 07/16/18 05:10 98.4 F 89 12 100 07/16/18 05:00 98.4 F 91 H 13 81/32 L 100 07/16/18 04:50 98.4 F 89 11 L 100 07/16/18 04:40 98.4 F 87 13 100 Intake and Output (Last 8hrs): Intake & Output 07/15/18 07/16/18 07/16/18 22:59 06:59 14:59 Intake Total 370 875 0 Output Total 900 700 Balance -530 175 0 Weight 136 lb Intake: IV 10 500 Left Upper arm 500 Right Forearm 10 Oral 360 Blood Product 0 325 0 Red Blood Cells Cpd As1 0 325 Lr Unit [id number] Red Blood Cells Cpda1 Lr 0 Unit [id number] Other 50 Red Blood Cells Cpd As1 50 Lr Unit [id number] Output: Urine 900 700 Urethral (Fried) 900 700 Oral Regurgitation 0 Other: # Bowel Movements 0 0 - Physical Exam Head: Positive for: Atraumatic, Normocephalic Pupils: Positive for: PERRL Extroacular Muscles: Positive for: EOMI Conjunctiva: Positive for: Normal Mouth: Positive for: Moist Mucous Membranes Neck: Positive for: Normal Range of Motion Respiratory/Chest: Positive for: Decreased Breath Sounds (decreased in anterior lung rico). Negative for: Respiratory Distress, Accessory Muscle Use Cardiovascular: Positive for: Normal S1, S2. Negative for: Murmurs Abdomen: Negative for: Tenderness, Distention, Peritoneal Signs Back: Positive for: Normal Inspection Upper Extremity: Positive for: Normal Inspection. Negative for: Cyanosis, Edema Lower Extremity: Positive for: Edema (+3 pitting edema ), NORMAL PULSES, Other (large hematoma on right ) Neurological: Positive for: GCS=15, CN II-XII Intact, Speech Normal Skin: Positive for: Warm, Dry, Normal Color. Negative for: Rashes Psychiatric: Positive for: Alert, Oriented x 3, Normal Insight, Normal Concentration - Medications Active Medications: Active Medications Generic Name Dose Route Start Last Admin Trade Name Freq PRN Reason Stop Dose Admin Acetaminophen 650 mg 07/10/18 18:08 Tylenol 325mg Tab PO Q6 PRN TEMP>=99.5F Acetaminophen 650 mg 07/10/18 18:08 Tylenol 650 Mg Supp RC Q6H PRN TEMP>=99.5F Arformoterol Tartrate 15 mcg 07/10/18 20:00 07/16/18 07:34 Brovana IH 15 mcg [id number] ARAM Administration Ascorbic Acid 500 mg 07/12/18 19:15 07/15/18 20:17 Vitamin C 500 Mg Tab PO 500 mg BID ARAM Administration Aspirin 81 mg 07/11/18 10:00 07/15/18 10:03 Ecotrin PO 81 mg DAILY ARAM Administration Atorvastatin Calcium 40 mg 07/10/18 18:15 07/15/18 20:17 Lipitor PO 40 mg DIN ARAM Administration Clopidogrel Bisulfate 75 mg 07/14/18 16:00 07/15/18 10:03 Plavix PO 75 mg DAILY ARAM Administration Diltiazem HCl 30 mg 07/11/18 18:00 07/16/18 02:48 Cardizem PO Not Given Q6 ARAM Docusate Sodium 100 mg 07/11/18 10:00 07/15/18 20:17 Colace PO 100 mg TID ARAM Administration Escitalopram Oxalate 5 mg 07/13/18 22:00 07/15/18 21:01 Lexapro PO 5 mg HS ARAM Administration Furosemide 20 mg 07/10/18 22:00 07/15/18 21:01 Lasix IVP 20 mg Q12 ARAM Administration Heparin Sodium (Porcine) 5,000 units 07/14/18 11:15 07/15/18 13:42 Heparin SC 5,000 units Q8H ARAM Administration Protocol Levofloxacin/Dextrose 500 mg in 100 mls @ 100 mls/hr 07/13/18 11:30 07/15/18 10:03 Levaquin 500mg IVPB 100 mls/hr DAILY ARAM Administration Protocol Midodrine 5 mg 07/11/18 18:00 07/15/18 20:17 Proamatine PO 5 mg TID ARAM Administration Montelukast Sodium 10 mg 07/10/18 22:00 07/15/18 21:01 Singulair PO 10 mg HS ARAM Administration Morphine Sulfate 2 mg 07/15/18 15:42 07/16/18 02:48 Morphine IVP 2 mg Q4H PRN Administration Pain, severe (8-10) Multivitamins/Vitamin C 15 ml 07/13/18 08:00 07/15/18 08:24 Multi-Delyn Liquid PO 15 ml 0800 ARAM Administration Mupirocin 0 gm 07/14/18 19:15 07/15/18 20:17 Bactroban Ointment NS 07/19/18 10:01 1 applic BID ARAM Administration Ambrisentan [ 5 mg 07/11/18 10:00 07/15/18 13:28 Letairis] 5 Mg ( PO Not Given Home Med) DAILY [facility] Ondansetron HCl 4 mg 07/10/18 18:08 Zofran Inj IVP Q4H PRN Nausea/Vomiting Prednisone 40 mg 07/15/18 10:00 07/15/18 10:07 Prednisone Tab PO 40 mg DAILY ARAM Administration Sildenafil Citrate 20 mg 07/11/18 10:00 07/15/18 20:17 Revatio PO 20 mg TID ARAM Administration - Patient Studies Lab Studies: Lab Studies 07/16/18 07/16/18 07/16/18 Range/Units 08:15 05:30 03:04 WBC 9.7 10.2 (4.5-11.0) 10^3/uL RBC 2.36 L 2.79 L (3.5-6.1) 10^6/uL Hgb 7.2 L 8.5 L (12.0-16.0) g/dL Hct 22.6 L 26.5 L (36.0-48.0) % MCV 95.8 95.0 D (80.0-105.0) fl MCH 30.5 30.5 (25.0-35.0) pg MCHC 31.9 32.1 (31.0-37.0) g/dl RDW 16.4 H 15.9 H (11.5-14.5) % Plt Count 108 L 123 (120.0-450.0) 10^3/uL MPV 10.2 10.0 (7.0-11.0) fl Gran % 89.0 H (50.0-68.0) % Lymph % (Auto) 6.5 L (22.0-35.0) % [place] % (Auto) 4.5 (1.0-6.0) % Eos % (Auto) 0.0 L (1.5-5.0) % Baso % (Auto) 0.0 (0.0-3.0) % Gran # 9.11 H (1.4-6.5) Lymph # (Auto) 0.7 L (1.2-3.4) [place] # (Auto) 0.5 (0.1-0.6) Eos # (Auto) 0.0 (0.0-0.7) Baso # (Auto) 0.00 (0.0-2.0) K/mm3 PT 12.4 (9.4-12.5) SECONDS INR 1.08 APTT 27.5 (25.1-36.5) Seconds Sodium (132-148) mmol/L Potassium (3.6-5.0) mmol/L Chloride (98-107) mmol/L Carbon Dioxide (21-33) mmol/L Anion Gap (10-20) BUN (7-21) mg/dL Creatinine (0.7-1.2) mg/dl Est GFR ( Amer) Est GFR (Non-Af Amer) Random Glucose (70-110) mg/dL Calcium (8.4-10.5) mg/dL Phosphorus (2.5-4.5) mg/dL Magnesium (1.7-2.2) mg/dL Total Bilirubin (0.2-1.3) mg/dL Direct Bilirubin (0.0-0.4) mg/dL AST (14-36) U/L ALT (7-56) U/L Alkaline Phosphatase (38-126) U/L Total Protein (5.8-8.3) g/dL Albumin (3.0-4.8) g/dL Globulin gm/dL Albumin/Globulin Ratio (1.1-1.8) Blood Type Blood Type Confirm Antibody Screen Crossmatch BBK History Checked 07/16/18 07/15/18 07/15/18 Range/Units 03:04 21:40 20:30 WBC (4.5-11.0) 10^3/uL RBC (3.5-6.1) 10^6/uL Hgb (12.0-16.0) g/dL Hct (36.0-48.0) % MCV (80.0-105.0) fl MCH (25.0-35.0) pg MCHC (31.0-37.0) g/dl RDW (11.5-14.5) % Plt Count (120.0-450.0) 10^3/uL MPV (7.0-11.0) fl Gran % (50.0-68.0) % Lymph % (Auto) (22.0-35.0) % [place] % (Auto) (1.0-6.0) % Eos % (Auto) (1.5-5.0) % Baso % (Auto) (0.0-3.0) % Gran # (1.4-6.5) Lymph # (Auto) (1.2-3.4) [place]wood # (Auto) (0.1-0.6) Eos # (Auto) (0.0-0.7) Baso # (Auto) (0.0-2.0) K/mm3 PT (9.4-12.5) SECONDS INR APTT (25.1-36.5) Seconds Sodium 138 (132-148) mmol/L Potassium 4.3 (3.6-5.0) mmol/L Chloride 97 L (98-107) mmol/L Carbon Dioxide 41 H (21-33) mmol/L Anion Gap 4 L (10-20) BUN 41 H (7-21) mg/dL Creatinine 0.9 (0.7-1.2) mg/dl Est GFR ( Amer) > 60 Est GFR (Non-Af Amer) 60 Random Glucose 145 H (70-110) mg/dL Calcium 8.5 (8.4-10.5) mg/dL Phosphorus 2.6 (2.5-4.5) mg/dL Magnesium 1.9 (1.7-2.2) mg/dL Total Bilirubin 0.9 (0.2-1.3) mg/dL Direct Bilirubin 0.3 (0.0-0.4) mg/dL AST 27 (14-36) U/L ALT 39 (7-56) U/L Alkaline Phosphatase 46 (38-126) U/L Total Protein 5.0 L (5.8-8.3) g/dL Albumin 2.7 L (3.0-4.8) g/dL Globulin 2.3 gm/dL Albumin/Globulin Ratio 1.2 (1.1-1.8) Blood Type O POSITIVE Blood Type Confirm O POSITIVE Antibody Screen Negative Crossmatch See Detail BBK History Checked No verified bt 07/15/18 Range/Units 16:49 WBC 10.4 (4.5-11.0) 10^3/uL RBC 2.71 L (3.5-6.1) 10^6/uL Hgb 8.2 L D (12.0-16.0) g/dL Hct 26.7 L (36.0-48.0) % MCV 98.5 (80.0-105.0) fl MCH 30.3 (25.0-35.0) pg MCHC 30.7 L (31.0-37.0) g/dl RDW 15.6 H (11.5-14.5) % Plt Count 144 (120.0-450.0) 10^3/uL MPV 9.8 (7.0-11.0) fl Gran % 87.9 H (50.0-68.0) % Lymph % (Auto) 3.5 L (22.0-35.0) % [place] % (Auto) 8.6 H (1.0-6.0) % Eos % (Auto) 0.0 L (1.5-5.0) % Baso % (Auto) 0.0 (0.0-3.0) % Gran # 9.17 H (1.4-6.5) Lymph # (Auto) 0.4 L (1.2-3.4) [place] # (Auto) 0.9 H (0.1-0.6) Eos # (Auto) 0.0 (0.0-0.7) Baso # (Auto) 0.00 (0.0-2.0) K/mm3 PT (9.4-12.5) SECONDS INR APTT (25.1-36.5) Seconds Sodium (132-148) mmol/L Potassium (3.6-5.0) mmol/L Chloride (98-107) mmol/L Carbon Dioxide (21-33) mmol/L Anion Gap (10-20) BUN (7-21) mg/dL Creatinine (0.7-1.2) mg/dl Est GFR ( Amer) Est GFR (Non-Af Amer) Random Glucose (70-110) mg/dL Calcium (8.4-10.5) mg/dL Phosphorus (2.5-4.5) mg/dL Magnesium (1.7-2.2) mg/dL Total Bilirubin (0.2-1.3) mg/dL Direct Bilirubin (0.0-0.4) mg/dL AST (14-36) U/L ALT (7-56) U/L Alkaline Phosphatase (38-126) U/L Total Protein (5.8-8.3) g/dL Albumin (3.0-4.8) g/dL Globulin gm/dL Albumin/Globulin Ratio (1.1-1.8) Blood Type Blood Type Confirm Antibody Screen Crossmatch BBK History Checked Laboratory Results - last 24 hr 07/15/18 07/15/18 07/15/18 16:49 20:30 21:40 WBC 10.4 RBC 2.71 L Hgb 8.2 L D Hct 26.7 L MCV 98.5 MCH 30.3 MCHC 30.7 L RDW 15.6 H Plt Count 144 MPV 9.8 Gran % 87.9 H Lymph % (Auto) 3.5 L [place] % (Auto) 8.6 H Eos % (Auto) 0.0 L Baso % (Auto) 0.0 Gran # 9.17 H Lymph # (Auto) 0.4 L [place] # (Auto) 0.9 H Eos # (Auto) 0.0 Baso # (Auto) 0.00 PT INR APTT Sodium Potassium Chloride Carbon Dioxide Anion Gap BUN Creatinine Est GFR ( Amer) Est GFR (Non-Af Amer) Random Glucose Calcium Phosphorus Magnesium Total Bilirubin Direct Bilirubin AST ALT Alkaline Phosphatase Total Protein Albumin Globulin Albumin/Globulin Ratio Blood Type O POSITIVE Blood Type Confirm O POSITIVE Antibody Screen Negative Crossmatch See Detail BBK History Checked No verified bt 07/16/18 07/16/18 07/16/18 03:04 03:04 05:30 WBC 10.2 9.7 RBC 2.79 L 2.36 L Hgb 8.5 L 7.2 L Hct 26.5 L 22.6 L MCV 95.0 D 95.8 MCH 30.5 30.5 MCHC 32.1 31.9 RDW 15.9 H 16.4 H Plt Count 123 108 L MPV 10.0 10.2 Gran % 89.0 H Lymph % (Auto) 6.5 L [place] % (Auto) 4.5 Eos % (Auto) 0.0 L Baso % (Auto) 0.0 Gran # 9.11 H Lymph # (Auto) 0.7 L [place] # (Auto) 0.5 Eos # (Auto) 0.0 Baso # (Auto) 0.00 PT INR APTT Sodium 138 Potassium 4.3 Chloride 97 L Carbon Dioxide 41 H Anion Gap 4 L BUN 41 H Creatinine 0.9 Est GFR ( Amer) > 60 Est GFR (Non-Af Amer) 60 Random Glucose 145 H Calcium 8.5 Phosphorus 2.6 Magnesium 1.9 Total Bilirubin 0.9 Direct Bilirubin 0.3 AST 27 ALT 39 Alkaline Phosphatase 46 Total Protein 5.0 L Albumin 2.7 L Globulin 2.3 Albumin/Globulin Ratio 1.2 Blood Type Blood Type Confirm Antibody Screen Crossmatch BBK History Checked 07/16/18 08:15 WBC RBC Hgb Hct MCV MCH MCHC RDW Plt Count MPV Gran % Lymph % (Auto) [place] % (Auto) Eos % (Auto) Baso % (Auto) Gran # Lymph # (Auto) [place] # (Auto) Eos # (Auto) Baso # (Auto) PT 12.4 INR 1.08 APTT 27.5 Sodium Potassium Chloride Carbon Dioxide Anion Gap BUN Creatinine Est GFR ( Amer) Est GFR (Non-Af Amer) Random Glucose Calcium Phosphorus Magnesium Total Bilirubin Direct Bilirubin AST ALT Alkaline Phosphatase Total Protein Albumin Globulin Albumin/Globulin Ratio Blood Type Blood Type Confirm Antibody Screen Crossmatch BBK History Checked EKG/Cardiology Studies: Cardiology / EKG Studies 07/15/18 10:30 ELECTROCARDIOGRAM DAILY Comment: Reason For Exam: chest pain Review of Systems - Review of Systems Review of Systems: except for what was mentioned in the [facility] Critical Care Progress Note - Ventilator Checklist Head of Bed 30 Degrees: Yes PUD Prophalyxis: Yes DVT Prophylaxis: Yes - Nutrition Nutrition: Nutrition Category Date Time Status Dysphagia/Modified Consistency Diet [DIET] Diets 07/16/18 Breakfast Ordered Assessment/Plan - Assessment and Plan (Free Text) Assessment: 82 year old female with past medical history of atrial fibrillation, COPD, pulmonary hypertension, and diastolic CHF initially presented to the hospital with crushing substernal chest pain while working with physical therapy. Hypercapneic Respiratory Failure 2/2 to COPD Right Ventricular Failure Pulmonary Hypertension Atrial Fibrillation Plan: Neuro: -AAOx3, No FND, moving extremities past midline. -Monitor neuro status. -Reorient patient as necessary. Cardio: Diastolic Congestive Heart Failure -RRR, hypotensive overnight with BP of 81/37 but is now 130/104, no signs of HD compromise -Last echocardiogram from 04/2018: EF: 68% -CXR from 07/13: cardiomegaly, hypoinflated lungs, bilateral pleural effusion and associated consolidating pulmonary venous congestion -Continue with aspirin 81 daily, lipitor 40 mg daily, lasix 20 mg Q12 -Patient had cardiac catherization on 07/14 showing RASP of 18, could not advance to right ventricle. RCA was 70% occluded and 1 bare metal stent was placed. LAD and LCx had atherosclerotic plaques. LVEF of 60% -Maintain MAP>65. -Monitor for S/S, HD compromise. Atrial Fibrillation with RVR -EKG 07/14: Atrial Fibrillation with RVR with HR: 76 -Continue with cardizem 30 mg Q6, not currently on therapeutic anticoagulation. -Follow up with Cardiology, Dr. Handy, for further recommendations. Hematoma of Right Thigh -Patient likely hypotensive due to hematoma around site of cardiac catherization. -Pressure applied yesterday to site of hematoma and area softened. -Hemoglobin dropped to 8.2 from 10.2 yesterday and due to active bleed, 2 U of PRBCs were transfused. Subsequent hemoglobin increased to 8.5, but this morning decreased to 7.2 and 2 more U of PRBCs were transfused. -Right leg CT: large heterogenous fluid collection and hematoma measuring 18x7.5x8 cm suspected at proximal medial aspect of thigh. Subcutaneous edema and ascites in pelvis. -Abdominal and Pelvis CT to evaluate for retroperitoneal hematoma: large air space opacities in bilateral lungs suspicious for aspiration pneumonitis, moderate cardiomegaly, bilateral pleural effusions, extensive subcutaneous stranding through abdomen and pelvis, nonspecific enterocolitis, right femoral hernia vs. abscess, abdominal ascites -Follow up duplex of right lower extremity to rule out pseudoaneurysm. -Follow surgery recommendations regarding hematoma. Pulm: Hypercapneic Respiratory Failure 2/2 to COPD -Patient currently on BiPap -CXR from 07/13: cardiomegaly, hypoinflated lungs, bilateral pleural effusion and associated consolidating pulmonary venous congestion -Continue with brovana 15 mcg Q12, singulair 10 mg HS -Taper steroids. Stop solumedrol 20 mg IV Q8 and start prednisone 40 mg daily. -Maintain O2 saturation>95%. -Elevate bed to 30 degrees Pulmonary Hypertension -Last RVSP: 145 -Continue with letairis 5 mg PO daily and revatio 20 mg PO TID GI: Diet -HHD GI Prophylaxis -Protonix 40 mg PO daily /Nephro: -BUN/Cr stable at 36/1 -Good urine output with fried intact -Continue monitoring. -Replete electrolytes as needed. -Maintain euvolemia. Endocrinology: -Random glucose: 126 -Maintain euglycemia. Heme/Onc: Hematoma of Right Thigh -Patient likely hypotensive due to hematoma around site of cardiac catherization. -Pressure applied yesterday to site of hematoma and area softened. -Hemoglobin dropped to 8.2 from 10.2 yesterday and due to active bleed, 2 U of PRBCs were transfused. Subsequent hemoglobin increased to 8.5, but this morning decreased to 7.2 and 2 more U of PRBCs were transfused. -Right leg CT: large heterogenous fluid collection and hematoma measuring 18x7.5x8 cm suspected at proximal medial aspect of thigh. Subcutaneous edema and ascites in pelvis. -Abdominal and Pelvis CT to evaluate for retroperitoneal hematoma: large air space opacities in bilateral lungs suspicious for aspiration pneumonitis, moderate cardiomegaly, bilateral pleural effusions, extensive subcutaneous stranding through abdomen and pelvis, nonspecific enterocolitis, right femoral hernia vs. abscess, abdominal ascites -Follow up duplex of right lower extremity to rule out pseudoaneurysm. -Follow surgery recommendations regarding hematoma. -Continue monitoring H/H with CBC Q6. DVT prophylaxis -SCD, heparin 5000 U subq Q8 held ID: Rule out pneumonia -Afebrile, no leukocytosis -CXR from 07/13: cardiomegaly, hypoinflated lungs, bilateral pleural effusion and associated consolidating pulmonary venous congestion -Follow up urine legionella antigen, S. Pneumonia antigen, influenza A and B -MRSA negative -Continue with levaquin 500 mg daily day 4. -Monitor for signs and symptoms of infection. Psych: Depression -As per Dr. Childers, Psychiatry, continue with lexapro 5 mg PO HS Dispo: Patient is currently DNR/DNI. Patient seen and examined with Dr. Londono. - Date & Time Date: 07/16/18 Time: 10:20 <Yoan Londono - Last Filed: 07/16/18 12:36> CCU Objective - Vital Signs / Intake & Output Vital Signs (Last 4 hours): Vital Signs Temp Pulse Resp BP Pulse Ox 07/16/18 11:17 101/39 L 07/16/18 11:12 98.6 F 94 H 16 101/39 L 07/16/18 09:39 98.4 F 90 16 103/41 L 07/16/18 09:00 98.6 F 95 H 13 87/31 L 97 07/16/18 08:53 98.6 F 95 H 19 125/42 L 100 07/16/18 08:50 98.6 F 89 13 97 07/16/18 08:40 98.6 F 97 H 19 100 07/16/18 08:37 98.6 F 96 H 15 98/49 L 100 07/16/18 08:30 98.6 F 92 H 11 L 97 Intake and Output (Last 8hrs): Intake & Output 07/15/18 07/16/18 07/16/18 22:59 06:59 14:59 Intake Total 370 875 330 Output Total 900 700 Balance -530 175 330 Weight 136 lb Intake: IV 10 500 Left Upper arm 500 Right Forearm 10 Oral 360 Blood Product 0 325 320 Red Blood Cells Cpd As1 0 325 Lr Unit [id number] Red Blood Cells Cpda1 Lr 320 Unit [id number] Other 50 10 Red Blood Cells Cpd As1 50 Lr Unit [id number] Red Blood Cells Cpda1 Lr 10 Unit [id number] Output: Urine 900 700 Urethral (Fried) 900 700 Oral Regurgitation 0 Other: # Bowel Movements 0 0 - Medications Active Medications: Active Medications Generic Name Dose Route Start Last Admin Trade Name Freq PRN Reason Stop Dose Admin Acetaminophen 650 mg 07/10/18 18:08 Tylenol 325mg Tab PO Q6 PRN TEMP>=99.5F Acetaminophen 650 mg 07/10/18 18:08 Tylenol 650 Mg Supp RC Q6H PRN TEMP>=99.5F Acetylcysteine 4 ml 07/16/18 10:00 07/16/18 10:43 Acetylcysteine 20% IH 4 ml [id number] ARAM Administration Arformoterol Tartrate 15 mcg 07/10/18 20:00 07/16/18 07:34 Brovana IH 15 mcg [id number] ARAM Administration Ascorbic Acid 500 mg 07/12/18 19:15 07/16/18 09:26 Vitamin C 500 Mg Tab PO 500 mg BID ARAM Administration Aspirin 81 mg 07/11/18 10:00 07/16/18 09:25 Ecotrin PO 81 mg DAILY ARAM Administration Atorvastatin Calcium 40 mg 07/10/18 18:15 07/15/18 20:17 Lipitor PO 40 mg DIN ARAM Administration Clopidogrel Bisulfate 75 mg 07/14/18 16:00 07/16/18 09:25 Plavix PO 75 mg DAILY ARAM Administration Diltiazem HCl 30 mg 07/11/18 18:00 07/16/18 09:20 Cardizem PO Not Given Q6 ARMA Docusate Sodium 100 mg 07/11/18 10:00 07/16/18 09:25 Colace PO 100 mg TID ARAM Administration Escitalopram Oxalate 5 mg 07/13/18 22:00 07/15/18 21:01 Lexapro PO 5 mg HS ARAM Administration Famotidine 20 mg 07/16/18 10:00 Pepcid PO 1000,2200 ARAM Furosemide 20 mg 07/10/18 22:00 07/16/18 11:17 Lasix IVP 20 mg Q12 ARAM Administration Heparin Sodium (Porcine) 5,000 units 07/14/18 11:15 07/15/18 13:42 Heparin SC 5,000 units Q8H ARAM Administration Protocol Aztreonam 100 mls @ 100 mls/hr 07/16/18 09:45 07/16/18 11:13 Azactam 1 Gm IVPB 07/23/18 06:59 100 mls/hr Q8 ARAM Administration Protocol Doxycycline Hyclate 100 mg/ 100 mls @ 100 mls/hr 07/16/18 10:00 Sodium Chloride IVPB Q12 ARAM Protocol Levalbuterol HCl 0.63 mg 07/16/18 10:00 07/16/18 10:44 Xopenex IH 0.63 mg [id number] ARAM Administration Midodrine 5 mg 07/11/18 18:00 07/16/18 09:25 Proamatine PO 5 mg TID ARAM Administration Montelukast Sodium 10 mg 07/10/18 22:00 07/15/18 21:01 Singulair PO 10 mg HS ARAM Administration Morphine Sulfate 2 mg 07/15/18 15:42 07/16/18 02:48 Morphine IVP 2 mg Q4H PRN Administration Pain, severe (8-10) Multivitamins/Vitamin C 15 ml 07/13/18 08:00 07/16/18 09:26 Multi-Delyn Liquid PO 15 ml 0800 ARAM Administration Mupirocin 0 gm 07/14/18 19:15 07/16/18 09:25 Bactroban Ointment NS 07/19/18 10:01 1 applic BID ARAM Administration Ambrisentan [ 5 mg 07/11/18 10:00 07/15/18 13:28 Letairis] 5 Mg ( PO Not Given Home Med) DAILY [facility] Ondansetron HCl 4 mg 07/10/18 18:08 Zofran Inj IVP Q4H PRN Nausea/Vomiting Prednisone 40 mg 07/15/18 10:00 07/16/18 09:25 Prednisone Tab PO 40 mg DAILY ARAM Administration Sildenafil Citrate 20 mg 07/11/18 10:00 07/16/18 09:25 Revatio PO 20 mg TID ARAM Administration - Patient Studies Lab Studies: Lab Studies 07/16/18 07/16/18 07/16/18 Range/Units 08:15 05:30 03:04 WBC 9.7 10.2 (4.5-11.0) 10^3/uL RBC 2.36 L 2.79 L (3.5-6.1) 10^6/uL Hgb 7.2 L 8.5 L (12.0-16.0) g/dL Hct 22.6 L 26.5 L (36.0-48.0) % MCV 95.8 95.0 D (80.0-105.0) fl MCH 30.5 30.5 (25.0-35.0) pg MCHC 31.9 32.1 (31.0-37.0) g/dl RDW 16.4 H 15.9 H (11.5-14.5) % Plt Count 108 L 123 (120.0-450.0) 10^3/uL MPV 10.2 10.0 (7.0-11.0) fl Gran % 89.0 H (50.0-68.0) % Lymph % (Auto) 6.5 L (22.0-35.0) % [place] % (Auto) 4.5 (1.0-6.0) % Eos % (Auto) 0.0 L (1.5-5.0) % Baso % (Auto) 0.0 (0.0-3.0) % Gran # 9.11 H (1.4-6.5) Lymph # (Auto) 0.7 L (1.2-3.4) [place] # (Auto) 0.5 (0.1-0.6) Eos # (Auto) 0.0 (0.0-0.7) Baso # (Auto) 0.00 (0.0-2.0) K/mm3 PT 12.4 (9.4-12.5) SECONDS INR 1.08 APTT 27.5 (25.1-36.5) Seconds Sodium (132-148) mmol/L Potassium (3.6-5.0) mmol/L Chloride (98-107) mmol/L Carbon Dioxide (21-33) mmol/L Anion Gap (10-20) BUN (7-21) mg/dL Creatinine (0.7-1.2) mg/dl Est GFR ( Amer) Est GFR (Non-Af Amer) Random Glucose (70-110) mg/dL Calcium (8.4-10.5) mg/dL Phosphorus (2.5-4.5) mg/dL Magnesium (1.7-2.2) mg/dL Total Bilirubin (0.2-1.3) mg/dL Direct Bilirubin (0.0-0.4) mg/dL AST (14-36) U/L ALT (7-56) U/L Alkaline Phosphatase (38-126) U/L Total Protein (5.8-8.3) g/dL Albumin (3.0-4.8) g/dL Globulin gm/dL Albumin/Globulin Ratio (1.1-1.8) Blood Type Blood Type Confirm Antibody Screen Crossmatch BBK History Checked 07/16/18 07/15/18 07/15/18 Range/Units 03:04 21:40 20:30 WBC (4.5-11.0) 10^3/uL RBC (3.5-6.1) 10^6/uL Hgb (12.0-16.0) g/dL Hct (36.0-48.0) % MCV (80.0-105.0) fl MCH (25.0-35.0) pg MCHC (31.0-37.0) g/dl RDW (11.5-14.5) % Plt Count (120.0-450.0) 10^3/uL MPV (7.0-11.0) fl Gran % (50.0-68.0) % Lymph % (Auto) (22.0-35.0) % [place] % (Auto) (1.0-6.0) % Eos % (Auto) (1.5-5.0) % Baso % (Auto) (0.0-3.0) % Gran # (1.4-6.5) Lymph # (Auto) (1.2-3.4) [place] # (Auto) (0.1-0.6) Eos # (Auto) (0.0-0.7) Baso # (Auto) (0.0-2.0) K/mm3 PT (9.4-12.5) SECONDS INR APTT (25.1-36.5) Seconds Sodium 138 (132-148) mmol/L Potassium 4.3 (3.6-5.0) mmol/L Chloride 97 L (98-107) mmol/L Carbon Dioxide 41 H (21-33) mmol/L Anion Gap 4 L (10-20) BUN 41 H (7-21) mg/dL Creatinine 0.9 (0.7-1.2) mg/dl Est GFR ( Amer) > 60 Est GFR (Non-Af Amer) 60 Random Glucose 145 H (70-110) mg/dL Calcium 8.5 (8.4-10.5) mg/dL Phosphorus 2.6 (2.5-4.5) mg/dL Magnesium 1.9 (1.7-2.2) mg/dL Total Bilirubin 0.9 (0.2-1.3) mg/dL Direct Bilirubin 0.3 (0.0-0.4) mg/dL AST 27 (14-36) U/L ALT 39 (7-56) U/L Alkaline Phosphatase 46 (38-126) U/L Total Protein 5.0 L (5.8-8.3) g/dL Albumin 2.7 L (3.0-4.8) g/dL Globulin 2.3 gm/dL Albumin/Globulin Ratio 1.2 (1.1-1.8) Blood Type O POSITIVE Blood Type Confirm O POSITIVE Antibody Screen Negative Crossmatch See Detail BBK History Checked No verified bt 07/15/18 Range/Units 16:49 WBC 10.4 (4.5-11.0) 10^3/uL RBC 2.71 L (3.5-6.1) 10^6/uL Hgb 8.2 L D (12.0-16.0) g/dL Hct 26.7 L (36.0-48.0) % MCV 98.5 (80.0-105.0) fl MCH 30.3 (25.0-35.0) pg MCHC 30.7 L (31.0-37.0) g/dl RDW 15.6 H (11.5-14.5) % Plt Count 144 (120.0-450.0) 10^3/uL MPV 9.8 (7.0-11.0) fl Gran % 87.9 H (50.0-68.0) % Lymph % (Auto) 3.5 L (22.0-35.0) % [place] % (Auto) 8.6 H (1.0-6.0) % Eos % (Auto) 0.0 L (1.5-5.0) % Baso % (Auto) 0.0 (0.0-3.0) % Gran # 9.17 H (1.4-6.5) Lymph # (Auto) 0.4 L (1.2-3.4) [place] # (Auto) 0.9 H (0.1-0.6) Eos # (Auto) 0.0 (0.0-0.7) Baso # (Auto) 0.00 (0.0-2.0) K/mm3 PT (9.4-12.5) SECONDS INR APTT (25.1-36.5) Seconds Sodium (132-148) mmol/L Potassium (3.6-5.0) mmol/L Chloride (98-107) mmol/L Carbon Dioxide (21-33) mmol/L Anion Gap (10-20) BUN (7-21) mg/dL Creatinine (0.7-1.2) mg/dl Est GFR ( Amer) Est GFR (Non-Af Amer) Random Glucose (70-110) mg/dL Calcium (8.4-10.5) mg/dL Phosphorus (2.5-4.5) mg/dL Magnesium (1.7-2.2) mg/dL Total Bilirubin (0.2-1.3) mg/dL Direct Bilirubin (0.0-0.4) mg/dL AST (14-36) U/L ALT (7-56) U/L Alkaline Phosphatase (38-126) U/L Total Protein (5.8-8.3) g/dL Albumin (3.0-4.8) g/dL Globulin gm/dL Albumin/Globulin Ratio (1.1-1.8) Blood Type Blood Type Confirm Antibody Screen Crossmatch BBK History Checked Laboratory Results - last 24 hr 07/15/18 07/15/18 07/15/18 16:49 20:30 21:40 WBC 10.4 RBC 2.71 L Hgb 8.2 L D Hct 26.7 L MCV 98.5 MCH 30.3 MCHC 30.7 L RDW 15.6 H Plt Count 144 MPV 9.8 Gran % 87.9 H Lymph % (Auto) 3.5 L [place] % (Auto) 8.6 H Eos % (Auto) 0.0 L Baso % (Auto) 0.0 Gran # 9.17 H Lymph # (Auto) 0.4 L [place] # (Auto) 0.9 H Eos # (Auto) 0.0 Baso # (Auto) 0.00 PT INR APTT Sodium Potassium Chloride Carbon Dioxide Anion Gap BUN Creatinine Est GFR ( Amer) Est GFR (Non-Af Amer) Random Glucose Calcium Phosphorus Magnesium Total Bilirubin Direct Bilirubin AST ALT Alkaline Phosphatase Total Protein Albumin Globulin Albumin/Globulin Ratio Blood Type O POSITIVE Blood Type Confirm O POSITIVE Antibody Screen Negative Crossmatch See Detail BBK History Checked No verified bt 07/16/18 07/16/18 07/16/18 03:04 03:04 05:30 WBC 10.2 9.7 RBC 2.79 L 2.36 L Hgb 8.5 L 7.2 L Hct 26.5 L 22.6 L MCV 95.0 D 95.8 MCH 30.5 30.5 MCHC 32.1 31.9 RDW 15.9 H 16.4 H Plt Count 123 108 L MPV 10.0 10.2 Gran % 89.0 H Lymph % (Auto) 6.5 L [place] % (Auto) 4.5 Eos % (Auto) 0.0 L Baso % (Auto) 0.0 Gran # 9.11 H Lymph # (Auto) 0.7 L [place] # (Auto) 0.5 Eos # (Auto) 0.0 Baso # (Auto) 0.00 PT INR APTT Sodium 138 Potassium 4.3 Chloride 97 L Carbon Dioxide 41 H Anion Gap 4 L BUN 41 H Creatinine 0.9 Est GFR ( Amer) > 60 Est GFR (Non-Af Amer) 60 Random Glucose 145 H Calcium 8.5 Phosphorus 2.6 Magnesium 1.9 Total Bilirubin 0.9 Direct Bilirubin 0.3 AST 27 ALT 39 Alkaline Phosphatase 46 Total Protein 5.0 L Albumin 2.7 L Globulin 2.3 Albumin/Globulin Ratio 1.2 Blood Type Blood Type Confirm Antibody Screen Crossmatch BBK History Checked 07/16/18 08:15 WBC RBC Hgb Hct MCV MCH MCHC RDW Plt Count MPV Gran % Lymph % (Auto) [place] % (Auto) Eos % (Auto) Baso % (Auto) Gran # Lymph # (Auto) [place] # (Auto) Eos # (Auto) Baso # (Auto) PT 12.4 INR 1.08 APTT 27.5 Sodium Potassium Chloride Carbon Dioxide Anion Gap BUN Creatinine Est GFR ( Amer) Est GFR (Non-Af Amer) Random Glucose Calcium Phosphorus Magnesium Total Bilirubin Direct Bilirubin AST ALT Alkaline Phosphatase Total Protein Albumin Globulin Albumin/Globulin Ratio Blood Type Blood Type Confirm Antibody Screen Crossmatch BBK History Checked Radiology Impressions: Radiology Impressions Lower Extremity CT 07/15/18 15:59 IMPRESSION: A 19.6 cm mixed hematoma is appreciated within the deep and superficial subcutaneous fat of the anteromedial right thigh as discussed above originating at the level of the mid right inguinal region extending inferior to the mid thigh level. Incidental potential anasarca in both thighs as imaged. Mild pelvic ascites noted incidentally. Concordant preliminary report from [facility], 07/15/2018 17:29 p.m.. Chest/Abdomen/Pelvis CT 07/15/18 16:39 IMPRESSION: Bilateral pneumonia and large pleural effusions. Large complex fluid collection in the right groin consistent with hematoma. Diffuse subcutaneous edema consistent with anasarca. Duplex Scan Lower Extremity Artery 07/16/18 09:16 IMPRESSION: 1. No sonographic evidence for pseudoaneurysm or AV fistula in the right groin. 2. Large hematoma in the right groin and upper thigh Critical Care Progress Note - Nutrition Nutrition: Nutrition Category Date Time Status Dysphagia/Modified Consistency Diet [DIET] Diets 07/16/18 Breakfast Ordered Attending/Attestation - Attestation I have personally seen and examined this patient.: Yes I have fully participated in the care of the patient.: Yes I have reviewed all pertinent clinical information: Yes Notes (Text): 07/16/18 12:30 The patient was seen and examined at the bedside. Patient care was discussed with resident Medical records, lab studies were reviewed and management issues were discussed and formulated. Agree with above treatment plans as outlined in 's note with addition of the following: Acute on chronic respiratory failure \ Hypoxemia \ PNA \ COPD \ Acute diastolic CHF \ Afib with RVR \ Groin Hematoma \ Blood loss anemia \ Pulmonary HTN -hemodynamic monitoring to maintain MAP>65 -s\p RCA stenting ; continue ASA, Plavix as per cardiology team who are following -consider holding cardizem in setting of active bleed and hypotension -o2 supplementation to maintain Spo2>90 Pao2>60; deescalate high-flow O2 -steroids taper and duoneb PRN -continue abx and f\u cultures -f\u Bun\Cr and U\o; hold diuresis while active bleed -PO diet and aspiration precautions -LE pulse checks -surgical team f\u -LE US shows no pseudoaneurism (pls see full read in EMR) -monitor serial H\H and size of hematoma -DVT prophylaxis CCM time 32min
[2018-07-16] MEDS: Sildenafil 20 MG TAB PO SCH ×3 (09:25→18:07)
[2018-07-16] MEDS: Mupirocin 2% Ointment 15 GM TUBE NS SCH ×2 (09:25→18:06)
[2018-07-16] MEDS: Multi Vitamins 15 mL UD Oral Solution PO SCH (09:26)
--- NOTE | 2018-07-16 09:58 | CP.PCM.CON ---
<Mindy Burks - Last Filed: 07/16/18 11:27> History of Present Illness - History of Present Illness History of Present Illness: Resident Consult Note for Surgery: Dr. Membreno Patient is an 82 year old female with PMH of atrial fibrillation, COPD, pulmonary HTN, diastolic CHF who presented with substernal chest pain associated with exertion. Patient was subsequently admitted to ICU for respiratory failure and given high flow oxygen. Patient underwent cardiac cath two days prior with stent placement in RCA. Patient was noted to have hematoma in right groin cath site and so surgery was consulted. Currently patient admits to abdominal pain but offers no other complaints. PMH: atrial fibrillation, COPD, pulmonary HTN, diastolic CHF PSH: denies FHx: mother 83 , no health problems. Father 81 , no health problems. SHx: former smoker quit 20 years ago, denies alcohol and illicit drug use Allergies: penicillins, shellfish, IV dye PMD: Dr. Lo Review of Systems - Review of Systems All systems: reviewed and no additional remarkable complaints except (as stated in HPI) Past Patient History - Infectious Disease Hx of Infectious Diseases: None - Past Social History Smoking Status: Never Smoked - CARDIAC Hx Cardiac Disorders: Yes Hx Congestive Heart Failure: Yes Hx Hypertension: Yes - PULMONARY Hx Chronic Obstructive Pulmonary Disease (COPD): Yes - NEUROLOGICAL Hx Neurological Disorder: No - HEENT Hx HEENT Problems: No - RENAL Hx Chronic Kidney Disease: No - ENDOCRINE/METABOLIC Hx Endocrine Disorders: No - HEMATOLOGICAL/ONCOLOGICAL Hx Blood Disorders: No - INTEGUMENTARY Hx Dermatological Problems: Yes Other/Comment: cellulitis/dermatitis ble flakey, dry, edmatous, reddened skin with pitting edema, dry toenails, slight redness to buttocks no openings - MUSCULOSKELETAL/RHEUMATOLOGICAL Hx Falls: No Hx Unsteady Gait: Yes - GASTROINTESTINAL Hx Gastroesophageal Reflux: Yes - GENITOURINARY/GYNECOLOGICAL Hx Genitourinary Disorders: No - PSYCHIATRIC Hx Psychophysiologic Disorder: No Hx Substance Use: No - SURGICAL HISTORY Hx Surgeries: No Meds Allergies/Adverse Reactions: Allergies Allergy/AdvReac Type Severity Reaction Status Date / Time Penicillins Allergy RASH Verified 06/23/18 06:17 shellfish derived Allergy RASH Verified 06/23/18 06:17 iv dye Allergy RASH Uncoded 05/08/18 18:06 flu shot AdvReac FATIGUE Uncoded 06/15/18 13:56 pneumonia vaccine AdvReac FATIGUE Uncoded 06/15/18 13:56 - Medications Medications: Current Medications Acetaminophen (Tylenol 325mg Tab) 650 mg PO Q6 PRN PRN Reason: TEMP>=99.5F Acetaminophen (Tylenol 650 Mg Supp) 650 mg RC Q6H PRN PRN Reason: TEMP>=99.5F Acetylcysteine (Acetylcysteine 20%) 4 ml IH [id number] [facility] Arformoterol Tartrate (Brovana) 15 mcg IH [id number] [facility] Last Admin: 07/16/18 07:34 Dose: 15 mcg Ascorbic Acid (Vitamin C 500 Mg Tab) 500 mg PO BID [facility] Last Admin: 07/16/18 09:26 Dose: 500 mg Aspirin (Ecotrin) 81 mg PO DAILY [facility] Last Admin: 07/16/18 09:25 Dose: 81 mg Atorvastatin Calcium (Lipitor) 40 mg PO DIN [facility] Last Admin: 07/15/18 20:17 Dose: 40 mg Clopidogrel Bisulfate (Plavix) 75 mg PO DAILY [facility] Last Admin: 07/16/18 09:25 Dose: 75 mg Diltiazem HCl (Cardizem) 30 mg PO Q6 [facility] Last Admin: 07/16/18 09:20 Dose: Not Given Docusate Sodium (Colace) 100 mg PO TID [facility] Last Admin: 07/16/18 09:25 Dose: 100 mg Escitalopram Oxalate (Lexapro) 5 mg PO HS [facility] Last Admin: 07/15/18 21:01 Dose: 5 mg Famotidine (Pepcid) 20 mg PO 1000,2200 [facility] Furosemide (Lasix) 20 mg IVP Q12 [facility] Last Admin: 07/15/18 21:01 Dose: 20 mg Heparin Sodium (Porcine) (Heparin) 5,000 units SC Q8H [facility]; Protocol Last Admin: 07/15/18 13:42 Dose: 5,000 units Aztreonam (Azactam 1 Gm) 100 mls @ 100 mls/hr IVPB Q8 [facility]; Protocol Stop: 07/23/18 06:59 Doxycycline Hyclate 100 mg/ (Sodium Chloride) 100 mls @ 100 mls/hr IVPB Q12 [facility]; Protocol Levalbuterol HCl (Xopenex) 0.63 mg IH [id number] [facility] Midodrine (Proamatine) 5 mg PO TID [facility] Last Admin: 07/16/18 09:25 Dose: 5 mg Montelukast Sodium (Singulair) 10 mg PO HS [facility] Last Admin: 07/15/18 21:01 Dose: 10 mg Morphine Sulfate (Morphine) 2 mg IVP Q4H PRN PRN Reason: Pain, severe (8-10) Last Admin: 07/16/18 02:48 Dose: 2 mg Multivitamins/Vitamin C (Multi-Delyn Liquid) 15 ml PO 0800 [facility] Last Admin: 07/16/18 09:26 Dose: 15 ml Mupirocin (Bactroban Ointment) 0 gm NS BID [facility] Stop: 07/19/18 10:01 Last Admin: 07/16/18 09:25 Dose: 1 applic Ambrisentan [ Letairis] 5 Mg ( Home Med) 5 mg PO DAILY [facility] Last Admin: 07/15/18 13:28 Dose: Not Given Ondansetron HCl (Zofran Inj) 4 mg IVP Q4H PRN PRN Reason: Nausea/Vomiting Prednisone (Prednisone Tab) 40 mg PO DAILY [facility] Last Admin: 07/16/18 09:25 Dose: 40 mg Sildenafil Citrate (Revatio) 20 mg PO TID [facility] Last Admin: 07/16/18 09:25 Dose: 20 mg Physical Exam - Constitutional Appears: Non-toxic, No Acute Distress - Head Exam Head Exam: ATRAUMATIC, NORMOCEPHALIC - Eye Exam Eye Exam: EOMI - ENT Exam ENT Exam: Mucous Membranes Moist - Respiratory Exam Respiratory Exam: NORMAL BREATHING PATTERN. absent: Accessory Muscle Use, R espiratory Distress - Cardiovascular Exam Cardiovascular Exam: RRR, +S1, +S2 - GI/Abdominal Exam GI & Abdominal Exam: Soft, Tenderness. absent: Distended, Firm, Rebound, Rigid - Extremities Exam Extremities exam: Positive for: pedal edema. Negative for: tenderness Additional comments: large hematoma extending from right groin with ecchymosis - Neurological Exam Neurological exam: Alert, Oriented x3 - Skin Skin Exam: Dry, Intact Results - Vital Signs Recent Vital Signs: Last Vital Signs Temp 98.4 F 07/16/18 09:39 Pulse 90 07/16/18 09:39 Resp 16 07/16/18 09:39 BP 103/41 L 07/16/18 09:39 Pulse Ox 97 01/17/19 09:00 - Labs Result Diagrams: 07/16/18 05:30 07/16/18 03:04 Labs: Laboratory Results - last 24 hr 07/15/18 07/15/18 07/15/18 16:49 20:30 21:40 WBC 10.4 RBC 2.71 L Hgb 8.2 L D Hct 26.7 L MCV 98.5 MCH 30.3 MCHC 30.7 L RDW 15.6 H Plt Count 144 MPV 9.8 Gran % 87.9 H Lymph % (Auto) 3.5 L [place] % (Auto) 8.6 H Eos % (Auto) 0.0 L Baso % (Auto) 0.0 Gran # 9.17 H Lymph # (Auto) 0.4 L [place] # (Auto) 0.9 H Eos # (Auto) 0.0 Baso # (Auto) 0.00 PT INR APTT Sodium Potassium Chloride Carbon Dioxide Anion Gap BUN Creatinine Est GFR ( Amer) Est GFR (Non-Af Amer) Random Glucose Calcium Phosphorus Magnesium Total Bilirubin Direct Bilirubin AST ALT Alkaline Phosphatase Total Protein Albumin Globulin Albumin/Globulin Ratio Blood Type O POSITIVE Blood Type Confirm O POSITIVE Antibody Screen Negative Crossmatch See Detail BBK History Checked No verified bt 07/16/18 07/16/18 07/16/18 03:04 03:04 05:30 WBC 10.2 9.7 RBC 2.79 L 2.36 L Hgb 8.5 L 7.2 L Hct 26.5 L 22.6 L MCV 95.0 D 95.8 MCH 30.5 30.5 MCHC 32.1 31.9 RDW 15.9 H 16.4 H Plt Count 123 108 L MPV 10.0 10.2 Gran % 89.0 H Lymph % (Auto) 6.5 L [place] % (Auto) 4.5 Eos % (Auto) 0.0 L Baso % (Auto) 0.0 Gran # 9.11 H Lymph # (Auto) 0.7 L [place] # (Auto) 0.5 Eos # (Auto) 0.0 Baso # (Auto) 0.00 PT INR APTT Sodium 138 Potassium 4.3 Chloride 97 L Carbon Dioxide 41 H Anion Gap 4 L BUN 41 H Creatinine 0.9 Est GFR ( Amer) > 60 Est GFR (Non-Af Amer) 60 Random Glucose 145 H Calcium 8.5 Phosphorus 2.6 Magnesium 1.9 Total Bilirubin 0.9 Direct Bilirubin 0.3 AST 27 ALT 39 Alkaline Phosphatase 46 Total Protein 5.0 L Albumin 2.7 L Globulin 2.3 Albumin/Globulin Ratio 1.2 Blood Type Blood Type Confirm Antibody Screen Crossmatch BBK History Checked 07/16/18 08:15 WBC RBC Hgb Hct MCV MCH MCHC RDW Plt Count MPV Gran % Lymph % (Auto) [place] % (Auto) Eos % (Auto) Baso % (Auto) Gran # Lymph # (Auto) [place] # (Auto) Eos # (Auto) Baso # (Auto) PT 12.4 INR 1.08 APTT 27.5 Sodium Potassium Chloride Carbon Dioxide Anion Gap BUN Creatinine Est GFR ( Amer) Est GFR (Non-Af Amer) Random Glucose Calcium Phosphorus Magnesium Total Bilirubin Direct Bilirubin AST ALT Alkaline Phosphatase Total Protein Albumin Globulin Albumin/Globulin Ratio Blood Type Blood Type Confirm Antibody Screen Crossmatch BBK History Checked Assessment & Plan - Assessment and Plan (Free Text) Assessment: Patient is an 82 year old female with PMH of atrial fibrillation, COPD, pulmonary HTN, diastolic CHF who presented with substernal chest pain, found to have hematoma s/p cardiac cath. Plan: - apply pressure dressing - monitor H&H q6H and transfuse PRN - elevate bilateral lower extremities - no surgical intervention indicated at this time - further management per primary and ICU Case discussed with Dr. Haseeb Burks PGY-1 - Date & Time Date: 07/16/18 Time: 10:44 <Mason Membreno - Last Filed: 07/19/18 23:59> Meds - Medications Medications: Current Medications Acetaminophen (Tylenol 325mg Tab) 650 mg PO Q6 PRN PRN Reason: TEMP>=99.5F Acetaminophen (Tylenol 650 Mg Supp) 650 mg RC Q6H PRN PRN Reason: TEMP>=99.5F Acetylcysteine (Acetylcysteine 20%) 4 ml IH [id number] [facility] Last Admin: 07/19/18 20:33 Dose: 4 ml Arformoterol Tartrate (Brovana) 15 mcg IH [id number] [facility] Last Admin: 07/19/18 20:33 Dose: 15 mcg Ascorbic Acid (Vitamin C 500 Mg Tab) 500 mg PO BID [facility] Last Admin: 07/19/18 17:10 Dose: 500 mg Atorvastatin Calcium (Lipitor) 40 mg PO DIN [facility] Last Admin: 07/19/18 17:11 Dose: 40 mg Clopidogrel Bisulfate (Plavix) 75 mg PO DAILY [facility] Last Admin: 07/19/18 09:19 Dose: 75 mg Diltiazem HCl (Cardizem) 60 mg PO Q8 [facility] Last Admin: 07/19/18 23:10 Dose: 60 mg Docusate Sodium (Colace) 100 mg PO TID [facility] Last Admin: 07/19/18 17:11 Dose: 100 mg Escitalopram Oxalate (Lexapro) 5 mg PO HS [facility] Last Admin: 07/19/18 23:21 Dose: 5 mg Famotidine (Pepcid) 20 mg PO 1000,2200 [facility] Last Admin: 07/19/18 23:10 Dose: 20 mg Furosemide (Lasix) 20 mg IVP Q12 [facility] Last Admin: 07/19/18 23:14 Dose: 20 mg Heparin Sodium (Porcine) (Heparin) 5,000 units SC Q8H [facility]; Protocol Last Admin: 07/15/18 13:42 Dose: 5,000 units Aztreonam (Azactam 1 Gm) 100 mls @ 100 mls/hr IVPB Q8 [facility]; Protocol Stop: 07/23/18 09:46 Last Admin: 07/19/18 23:20 Dose: 100 mls/hr Doxycycline Hyclate 100 mg/ (Sodium Chloride) 100 mls @ 100 mls/hr IVPB Q12 [facility]; Protocol Last Admin: 07/19/18 23:09 Dose: 100 mls/hr Vancomycin HCl (Vancomycin 1gm) 1 gm in 250 mls @ 167 mls/hr IVPB Q12H [facility]; Protocol Last Admin: 07/19/18 13:17 Dose: 167 mls/hr Levalbuterol HCl (Xopenex) 0.63 mg IH [id number] [facility] Last Admin: 07/19/18 20:34 Dose: 0.63 mg Midodrine (Proamatine) 5 mg PO TID [facility] Last Admin: 07/19/18 17:11 Dose: 5 mg Montelukast Sodium (Singulair) 10 mg PO [facility] Last Admin: 07/19/18 23:09 Dose: 10 mg Morphine Sulfate (Morphine) 1 mg IVP Q6H PRN PRN Reason: Pain, severe (8-10) Multivitamins/Vitamin C (Multi-Delyn Liquid) 15 ml PO 0800 [facility] Last Admin: 07/19/18 08:41 Dose: 15 ml Ambrisentan [ Letairis] 5 Mg ( Home Med) 5 mg PO DAILY [facility] Last Admin: 07/19/18 11:42 Dose: Not Given Ondansetron HCl (Zofran Inj) 4 mg IVP Q4H PRN PRN Reason: Nausea/Vomiting Oseltamivir Phosphate (Tamiflu Cap) 75 mg PO BID [facility]; Protocol Stop: 07/22/18 11:04 Last Admin: 07/19/18 17:19 Dose: 75 mg Prednisone (Prednisone Tab) 40 mg PO DAILY [facility] Last Admin: 07/19/18 09:18 Dose: 40 mg Sildenafil Citrate (Revatio) 20 mg PO TID [facility] Last Admin: 07/19/18 17:11 Dose: 20 mg Silver Sulfadiazine (Silvadene 1% 25 Gm) 0 gm TP BID [facility] Last Admin: 07/19/18 17:11 Dose: 25 gm Results - Vital Signs Recent Vital Signs: Last Vital Signs Temp 98.7 F 07/19/18 16:00 Pulse 85 07/19/18 23:10 Resp 14 07/19/18 18:00 BP 140/73 07/19/18 23:14 Pulse Ox 95 07/19/18 17:20 - Labs Result Diagrams: 07/19/18 06:35 07/19/18 06:35 Labs: Laboratory Results - last 24 hr 07/19/18 07/19/18 07/19/18 06:35 06:35 08:19 WBC 11.3 H D RBC 3.25 L Hgb 9.7 L Hct 32.5 L MCV 100.0 MCH 29.8 MCHC 29.8 L RDW 15.7 H Plt Count 106 L Manual Plt Count 120 MPV 9.6 Gran % 84.6 H Lymph % (Auto) 10.6 L [place] % (Auto) 4.6 Eos % (Auto) 0.2 L Baso % (Auto) 0.0 Gran # 9.54 H Lymph # (Auto) 1.2 [place] # (Auto) 0.5 Eos # (Auto) 0.0 Baso # (Auto) 0.00 Sodium 142 Potassium 4.2 Chloride 98 Carbon Dioxide 41 H Anion Gap 7 L BUN 42 H Creatinine 1.0 Est GFR ( Amer) > 60 Est GFR (Non-Af Amer) 53 POC Glucose (mg/dL) 120 H Random Glucose 106 Calcium 8.7 Phosphorus 2.9 Magnesium 1.9 Total Bilirubin 0.6 Direct Bilirubin 0.3 AST 65 H D ALT 64 H Alkaline Phosphatase 77 Total Protein 5.3 L Albumin 3.0 Globulin 2.3 Albumin/Globulin Ratio 1.3 Vancomycin Trough 07/19/18 07/19/18 07/19/18 11:14 12:38 15:22 WBC RBC Hgb Hct MCV MCH MCHC RDW Plt Count Manual Plt Count MPV Gran % Lymph % (Auto) [place] % (Auto) Eos % (Auto) Baso % (Auto) Gran # Lymph # (Auto) [place] # (Auto) Eos # (Auto) Baso # (Auto) Sodium Potassium Chloride Carbon Dioxide Anion Gap BUN Creatinine Est GFR ( Amer) Est GFR (Non-Af Amer) POC Glucose (mg/dL) 200 H 229 H Random Glucose Calcium Phosphorus Magnesium Total Bilirubin Direct Bilirubin AST ALT Alkaline Phosphatase Total Protein Albumin Globulin Albumin/Globulin Ratio Vancomycin Trough 18.7 H* Assessment & Plan - Assessment and Plan (Free Text) Plan: Patient was seen, examined and evaluated by me. I agree with resident's assessment and plan.
[2018-07-16] MEDS ORDERED: Aztreonam 1 Gm in NS 100mL 100 ML IVPB SCH (10:00)
[2018-07-16] MEDS ORDERED: Acetylcysteine 20% Inhal Soln (4ml) IH SCH (10:00)
[2018-07-16] MEDS ORDERED: Levalbuterol 0.63 MG/3 ML Inhal Soln UD IH PRN (10:00)
--- NOTE | 2018-07-16 10:07 | CT ---
Date of service: 07/15/2018 PROCEDURE: CT RIGHT LOWER EXTREMITY WITHOUT CONTRAST HISTORY: hematoma COMPARISON: None available. TECHNIQUE: A volumetric CT acquisition was performed from the right hip to the distal right thigh without intravenous contrast. FINDINGS: No fracture or destructive bony lesion is identified focally throughout the visualize right femur as well as the right acetabulum and innominate bone. The visualized right pubic bones are intact as well. Degenerative changes appear advanced at the right hip joint including joint space narrowing, articular cortical sclerosis and moderate osteophyte development. Evaluation of the local soft tissues reveals a large heterogeneous fluid collection at the anteromedial right thigh originating at the mid right inguinal region and extending inferomedially in the superficial and deep anteromedial thigh subcutaneous fat measuring 12.9 x 6.8 x 19.6 cm (transverse by anteroposterior by superoinferior dimensions). Hounsfield unit density measurements are as high as 53 Hounsfield units with this finding compatible with a hematoma though, likely at various stages of blood product degradation. Diffuse reticular changes in the subcutaneous fat of the right thigh otherwise may reflect anasarca as a similar pattern seen at minimal capture of the medial left thigh. Clinically correlate further. The hematoma impresses the adductor muscular compartment of the right thigh somewhat but is independent of that compartment. Incidental limited ascites in the pelvis. [place] catheter partially decompresses the urinary bladder. IMPRESSION: A 19.6 cm mixed hematoma is appreciated within the deep and superficial subcutaneous fat of the anteromedial right thigh as discussed above originating at the level of the mid right inguinal region extending inferior to the mid thigh level. Incidental potential anasarca in both thighs as imaged. Mild pelvic ascites noted incidentally. Concordant preliminary report from [facility], 07/15/2018 17:29 p.m..
--- NOTE | 2018-07-16 10:19 | CT ---
Date of service: 07/15/2018 PROCEDURE: CT Chest, Abdomen and Pelvis without intravenous contrast HISTORY: right groin hematoma. COMPARISON: None available. TECHNIQUE: Radiation dose: Total exam DLP = 846.13 mGy-cm. This CT exam was performed using one or more of the following dose reduction techniques: Automated exposure control, adjustment of the mA and/or kV according to patient size, and/or use of iterative reconstruction technique. FINDINGS: CT CHEST WITHOUT CONTRAST: LUNGS: Bilateral alveolar infiltrates consistent with pneumonia. Large bilateral pleural effusions MEDIASTINUM: Cardiomegaly. Severely calcified mitral valve. Aortic calcification LYMPH NODES: Unremarkable. PLEURA: Large bilateral pleural effusions BONES: Unremarkable. OTHER FINDINGS: None. CT ABDOMEN AND PELVIS: LIVER: Unremarkable. No gross lesion or ductal dilatation. GALLBLADDER AND BILE DUCTS: Unremarkable. PANCREAS: Unremarkable. No gross lesion or ductal dilatation. SPLEEN: Unremarkable. ADRENALS: Unremarkable. No mass. KIDNEYS AND URETERS: Unremarkable. No hydronephrosis. No solid mass. VASCULATURE: No aortic atherosclerotic calcification or mural plaque present. Aortic calcification BOWEL: Unremarkable. No obstruction. No gross mural thickening. APPENDIX: No evidence of appendicitis PERITONEUM: There is a large complex fluid collection in the right right groin consistent with a history of hematoma. This measures 4.8 by 14 cm. There is extensive subcutaneous edema consistent with anasarca. LYMPH NODES: Unremarkable. No enlarged lymph nodes. BLADDER: Ashton catheter in bladder. REPRODUCTIVE: Unremarkable. BONES: No acute fracture. OTHER FINDINGS: The report concurs with the preliminary [facility] report IMPRESSION: Bilateral pneumonia and large pleural effusions. Large complex fluid collection in the right groin consistent with hematoma. Diffuse subcutaneous edema consistent with anasarca.
[2018-07-16] MEDS: Acetylcysteine 20% Inhal Soln (4ml) IH SCH ×2 (10:43→20:26)
[2018-07-16] MEDS: Levalbuterol 0.63 MG/3 ML Inhal Soln UD IH SCH ×2 (10:44→20:26)
[2018-07-16] MEDS: Aztreonam 1 Gm in NS 100mL 100 ML IVPB SCH ×3 (11:13→21:58)
--- NOTE | 2018-07-16 12:12 | US ---
PROCEDURE: Duplex arterial ultrasound of the right groin. HISTORY: Recent cardiac catheterization. Pain and pulsatile mass in the right groin. Evaluate for pseudoaneurysm or fistula. PHYSICIAN(S): Shaheed Burden MD. FINDINGS: The right common femoral artery is patent with a normal triphasic waveform. No sonographic evidence of a pseudoaneurysm or AV fistula is seen. The right superficial femoral artery and profunda femoral artery are patent proximally. The visualized venous segments the right groin are patent and compressible. There is a large 10 cm complex hematoma in the right groin and upper thigh IMPRESSION: 1. No sonographic evidence for pseudoaneurysm or AV fistula in the right groin. 2. Large hematoma in the right groin and upper thigh
--- NOTE | 2018-07-16 12:48 | CP.PCM.CON ---
History of Present Illness - History of Present Illness History of Present Illness: 82 year old male with PMH of COPD, diastolic CHF, pulmonary HTN came in to [facility] [place] because of substernal chest pain and was found to have acute myocardial infarction. She was also having some shortness of breath and dry cough. She underwent cardiac cath and also developed hematoma at the site of cardiac cath in the right leg and is currently in the ICU being monitored. There has been no note of fevers, no vomiting, no diarrhea. Full ROS is difficult to obtain because the patient is somewhat lethargic. Patient is not in respiratory dis tress currently but was in some form of distress initially and CT C/A/P has been done which is showing bilateral pneumonia with pleural effusions. Infectious diseases consult is requested to further evaluate and manage. Review of Systems - Review of Systems All systems: reviewed and no additional remarkable complaints except (as per HPI) Past Patient History - Infectious Disease Hx of Infectious Diseases: None - Past Social History Smoking Status: Never Smoked - CARDIAC Hx Cardiac Disorders: Yes Hx Congestive Heart Failure: Yes Hx Hypertension: Yes - PULMONARY Hx Chronic Obstructive Pulmonary Disease (COPD): Yes - NEUROLOGICAL Hx Neurological Disorder: No - HEENT Hx HEENT Problems: No - RENAL Hx Chronic Kidney Disease: No - ENDOCRINE/METABOLIC Hx Endocrine Disorders: No - HEMATOLOGICAL/ONCOLOGICAL Hx Blood Disorders: No - INTEGUMENTARY Hx Dermatological Problems: Yes Other/Comment: cellulitis/dermatitis ble flakey, dry, edmatous, reddened skin with pitting edema, dry toenails, slight redness to buttocks no openings - MUSCULOSKELETAL/RHEUMATOLOGICAL Hx Falls: No Hx Unsteady Gait: Yes - GASTROINTESTINAL Hx Gastroesophageal Reflux: Yes - GENITOURINARY/GYNECOLOGICAL Hx Genitourinary Disorders: No - PSYCHIATRIC Hx Psychophysiologic Disorder: No Hx Substance Use: No - SURGICAL HISTORY Hx Surgeries: No Meds Allergies/Adverse Reactions: Allergies Allergy/AdvReac Type Severity Reaction Status Date / Time Penicillins Allergy RASH Verified 06/23/18 06:17 shellfish derived Allergy RASH Verified 06/23/18 06:17 iv dye Allergy RASH Uncoded 05/08/18 18:06 flu shot AdvReac FATIGUE Uncoded 06/15/18 13:56 pneumonia vaccine AdvReac FATIGUE Uncoded 06/15/18 13:56 - Medications Medications: Current Medications Acetaminophen (Tylenol 325mg Tab) 650 mg PO Q6 PRN PRN Reason: TEMP>=99.5F Acetaminophen (Tylenol 650 Mg Supp) 650 mg RC Q6H PRN PRN Reason: TEMP>=99.5F Acetylcysteine (Acetylcysteine 20%) 4 ml IH [id number] [facility] Arformoterol Tartrate (Brovana) 15 mcg IH [id number] [facility] Last Admin: 07/16/18 07:34 Dose: 15 mcg Ascorbic Acid (Vitamin C 500 Mg Tab) 500 mg PO BID [facility] Last Admin: 07/16/18 09:26 Dose: 500 mg Aspirin (Ecotrin) 81 mg PO DAILY [facility] Last Admin: 07/16/18 09:25 Dose: 81 mg Atorvastatin Calcium (Lipitor) 40 mg PO DIN [facility] Last Admin: 07/15/18 20:17 Dose: 40 mg Clopidogrel Bisulfate (Plavix) 75 mg PO DAILY [facility] Last Admin: 07/16/18 09:25 Dose: 75 mg Diltiazem HCl (Cardizem) 30 mg PO Q6 [facility] Last Admin: 07/16/18 09:20 Dose: Not Given Docusate Sodium (Colace) 100 mg PO TID [facility] Last Admin: 07/16/18 09:25 Dose: 100 mg Escitalopram Oxalate (Lexapro) 5 mg PO HS [facility] Last Admin: 07/15/18 21:01 Dose: 5 mg Famotidine (Pepcid) 20 mg PO 1000,2200 ARAM Furosemide (Lasix) 20 mg IVP Q12 [facility] Last Admin: 07/15/18 21:01 Dose: 20 mg Heparin Sodium (Porcine) (Heparin) 5,000 units SC Q8H [facility]; Protocol Last Admin: 07/15/18 13:42 Dose: 5,000 units Aztreonam (Azactam 1 Gm) 100 mls @ 100 mls/hr IVPB Q8 [facility]; Protocol Stop: 07/23/18 06:59 Doxycycline Hyclate 100 mg/ (Sodium Chloride) 100 mls @ 100 mls/hr IVPB Q12 [facility]; Protocol Levalbuterol HCl (Xopenex) 0.63 mg IH [id number] [facility] Midodrine (Proamatine) 5 mg PO TID [facility] Last Admin: 07/16/18 09:25 Dose: 5 mg Montelukast Sodium (Singulair) 10 mg PO HS [facility] Last Admin: 07/15/18 21:01 Dose: 10 mg Morphine Sulfate (Morphine) 2 mg IVP Q4H PRN PRN Reason: Pain, severe (8-10) Last Admin: 07/16/18 02:48 Dose: 2 mg Multivitamins/Vitamin C (Multi-Delyn Liquid) 15 ml PO 0800 [facility] Last Admin: 07/16/18 09:26 Dose: 15 ml Mupirocin (Bactroban Ointment) 0 gm NS BID [facility] Stop: 07/19/18 10:01 Last Admin: 07/16/18 09:25 Dose: 1 applic Ambrisentan [ Letairis] 5 Mg ( Home Med) 5 mg PO DAILY [facility] Last Admin: 07/15/18 13:28 Dose: Not Given Ondansetron HCl (Zofran Inj) 4 mg IVP Q4H PRN PRN Reason: Nausea/Vomiting Prednisone (Prednisone Tab) 40 mg PO DAILY [facility] Last Admin: 07/16/18 09:25 Dose: 40 mg Sildenafil Citrate (Revatio) 20 mg PO TID [facility] Last Admin: 07/16/18 09:25 Dose: 20 mg Physical Exam - Constitutional Appears: No Acute Distress, Chronically Ill - Head Exam Head Exam: NORMAL INSPECTION - Neck Exam Neck exam: Negative for: Lymphadenopathy, Meningismus - Respiratory Exam Respiratory Exam: Decreased Breath Sounds (especially at the bases), Rales (scatttered) - Cardiovascular Exam Cardiovascular Exam: +S1, +S2 - GI/Abdominal Exam GI & Abdominal Exam: Soft. absent: Tenderness - Extremities Exam Additional comments: right groin area with swelling and tenderness Results - Vital Signs Recent Vital Signs: Last Vital Signs Temp 98.4 F 07/16/18 09:39 Pulse 90 07/16/18 09:39 Resp 16 07/16/18 09:39 BP 103/41 L 07/16/18 09:39 Pulse Ox 97 07/16/18 09:00 - Labs Result Diagrams: 07/16/18 05:30 07/16/18 03:04 Labs: Laboratory Results - last 24 hr 07/15/18 07/15/18 07/15/18 16:49 20:30 21:40 WBC 10.4 RBC 2.71 L Hgb 8.2 L D Hct 26.7 L MCV 98.5 MCH 30.3 MCHC 30.7 L RDW 15.6 H Plt Count 144 MPV 9.8 Gran % 87.9 H Lymph % (Auto) 3.5 L [place] % (Auto) 8.6 H Eos % (Auto) 0.0 L Baso % (Auto) 0.0 Gran # 9.17 H Lymph # (Auto) 0.4 L [place] # (Auto) 0.9 H Eos # (Auto) 0.0 Baso # (Auto) 0.00 PT INR APTT Sodium Potassium Chloride Carbon Dioxide Anion Gap BUN Creatinine Est GFR ( Amer) Est GFR (Non-Af Amer) Random Glucose Calcium Phosphorus Magnesium Total Bilirubin Direct Bilirubin AST ALT Alkaline Phosphatase Total Protein Albumin Globulin Albumin/Globulin Ratio Blood Type O POSITIVE Blood Type Confirm O POSITIVE Antibody Screen Negative Crossmatch See Detail BBK History Checked No verified bt 07/16/18 07/16/18 07/16/18 03:04 03:04 05:30 WBC 10.2 9.7 RBC 2.79 L 2.36 L Hgb 8.5 L 7.2 L Hct 26.5 L 22.6 L MCV 95.0 D 95.8 MCH 30.5 30.5 MCHC 32.1 31.9 RDW 15.9 H 16.4 H Plt Count 123 108 L MPV 10.0 10.2 Gran % 89.0 H Lymph % (Auto) 6.5 L [place] % (Auto) 4.5 Eos % (Auto) 0.0 L Baso % (Auto) 0.0 Gran # 9.11 H Lymph # (Auto) 0.7 L [place] # (Auto) 0.5 Eos # (Auto) 0.0 Baso # (Auto) 0.00 PT INR APTT Sodium 138 Potassium 4.3 Chloride 97 L Carbon Dioxide 41 H Anion Gap 4 L BUN 41 H Creatinine 0.9 Est GFR ( Amer) > 60 Est GFR (Non-Af Amer) 60 Random Glucose 145 H Calcium 8.5 Phosphorus 2.6 Magnesium 1.9 Total Bilirubin 0.9 Direct Bilirubin 0.3 AST 27 ALT 39 Alkaline Phosphatase 46 Total Protein 5.0 L Albumin 2.7 L Globulin 2.3 Albumin/Globulin Ratio 1.2 Blood Type Blood Type Confirm Antibody Screen Crossmatch BBK History Checked 07/16/18 08:15 WBC RBC Hgb Hct MCV MCH MCHC RDW Plt Count MPV Gran % Lymph % (Auto) [place] % (Auto) Eos % (Auto) Baso % (Auto) Gran # Lymph # (Auto) [place] # (Auto) Eos # (Auto) Baso # (Auto) PT 12.4 INR 1.08 APTT 27.5 Sodium Potassium Chloride Carbon Dioxide Anion Gap BUN Creatinine Est GFR ( Amer) Est GFR (Non-Af Amer) Random Glucose Calcium Phosphorus Magnesium Total Bilirubin Direct Bilirubin AST ALT Alkaline Phosphatase Total Protein Albumin Globulin Albumin/Globulin Ratio Blood Type Blood Type Confirm Antibody Screen Crossmatch BBK History Checked Assessment & Plan - Assessment and Plan (Free Text) Plan: Assessment consider bilateral lower lobe HCAP in this patient presenting acute myocardial infarction S/P cardiac cath right groin hematoma after cardiac cath history of right leg cellulitis with Pseudomonas in this patient with probable chronic venous stasis, S/P treatment with antibiotics COPD diastolic CHF pulmonary HTN Plan started Vancomycin, Aztreonam and Doxycycline pending blood, sputum cx, PCT will monitor clinically follow up further plans for the right groin hematoma follow up further recommendations of Cardiology
--- NOTE | 2018-07-16 12:53 | PN ---
DATE: 07/16/2018 SUBJECTIVE: The patient is in ICU, bed 3. The patient's overnight nurse's notes and events were noted. The patient was noted to have a right groin, right thigh swelling and hematoma for which the patient underwent a CAT scan of the right lower extremity and the abdomen and pelvis. The results of which were reviewed from the [facility] reading. The patient was noticed to have a hematoma and the right groin swelling by the physical therapist as per the patient's nurse. The patient's repeat CBC was done yesterday. Hemoglobin dropped to 8.5. The patient received one unit of PRBC overnight. PHYSICAL EXAMINATION VITAL SIGNS: T-max 98.4, telemetry shows atrial fibrillation, heart rate 89-95, blood pressure averaging in the last 12 to 24 hours systolic 80s to 90s and diastolic in 40s and 50s. This morning's blood pressure was also 109/49 and 81/32. Respiration 13 to 18 and O2 sat 100%. HEENT: Head examination normocephalic and atraumatic. HEENT examination shows pale conjunctivae. Anicteric sclerae. No oropharyngeal lesion. No neck rigidity. CHEST: Kyphosis. LUNGS: Shows positive crepts, rhonchi, crackles bilaterally. CARDIOVASCULAR: S1 and S2, irregular rhythm. Positive systolic murmur left sternal border, right second intercostal space and left second intercostal space. ABDOMEN: Soft. Positive bowel sounds. Positive right groin hematoma, discoloration. Positive skin changes of the right groin, right upper thigh noted, which has been marked. Positive SCDs noted of the lower extremity. MUSCULOSKELETAL: As per the body mass index. NEUROLOGIC: The patient is awake and responsive. VASCULAR: Examination could not be assessed. LABORATORY DATA: Diagnostics from July 16, WBC 9.7, hemoglobin/hematocrit 7.2 and 22.6 and platelet 108. Sodium 138, potassium 4.3, chloride 97, CO2 of 40, BUN 41, creatinine 0.9, glucose 145, calcium 8.5, phosphorus 2.6, magnesium 1.9, albumin 2.7 and total protein 5.0. Hemoglobin has dropped now to 7.2 22.6 from a baseline admission hemoglobin of greater than 11. Platelets have also decreased from her 218,000 from admission to 108,000. CAT scan of the abdomen and pelvis; [facility] readings were reviewed. We are awaiting final CAT scan reading by radiologist at [facility]. IMPRESSION: 1. Hypotension with hypovolemic hypotension. 2. Acute blood loss anemia. 3. Right inguinal area, right groin and right upper thigh large hematoma. 4. Questionable and possible right-sided retroperitoneal bleeding. 5. Atrial fibrillation. 6. Acute blood loss anemia with decreasing hemoglobin/hematocrit. 7. Thrombocytopenia. 8. Metabolic alkalosis. 9. Hypoalbuminemia. 10. Mild protein malnutrition. 11. Large bilateral pleural effusion. 12. Bilateral bibasilar large air space opacities and right middle lobe opacities versus bilateral multilobar questionable and possible aspiration pneumonia. 13. Cardiomegaly. 14. Diastolic right-sided congestive heart failure. 15. Severe pulmonary hypertension. 16. Left renal cyst. 17. Diverticulosis. 18. Right upper thigh subcutaneous tissue stranding and possible right sided retroperitoneal hematoma. 19. New-onset atrial fibrillation. 20. Single-vessel coronary artery disease of the right coronary artery 70% to 78% stenosis. 21. Status post angioplasty with bare-metal stent placement of the right coronary artery angioplasty. 22. Acute hypoxic hypercarbic respiratory failure, bilevel positive airway pressure requiring. 23. Hypercarbia and hypercapnia. 24. Severe respiratory acidosis. 25. Severe deconditioning and gait dysfunction. PLAN: At this time, the patient has been ordered 2 units of PRBC and 1 unit of platelets. Surgical consultation has been requested. The patient will be continued on ICU monitoring until further stabilization. The patient will be continued on DVT prophylaxis. The patient will be continued on oxygen supplementation nebulizer treatment. The patient will be started on broad-spectrum IV antibiotics including Rocephin and Vibramycin. The patient will be continued on nebulizer treatment with Xopenex and Mucomyst. The patient will be followed by Cardiology and Intensive Care. The patient's overall prognosis is guarded to poor. The patient's family and next of kin are aware. The patient's code status is DNR. Time spent in the entire management more than 45 minutes. Dictated and electronically signed, not read. Jonah Lody MD
[2018-07-16 13:54] VITALS: BMI 25.7
[2018-07-16] MEDS: AMBRISENTAN 5 MG PO SCH (18:02)
[2018-07-16] MEDS: Vancomycin 1gm in NS 250ml 1 GM/250 ML BAG IVPB SCH (18:09)
--- NOTE | 2018-07-16 19:07 | PN ---
DATE: 07/16/2018 CARDIOLOGY FOLLOWUP SUBJECTIVE: The patient developed a large hematoma in the catheterization site 24 hours after the procedure. CT scan shows no retroperitoneal bleed. Duplex scan reveals no pseudoaneurysm and no AV fistula. Currently, the patient is in bed without chest pain, without shortness of breath. PHYSICAL EXAMINATION VITAL SIGNS: Blood pressure 104/57, heart rate in the 90s. NECK: Negative JVD. LUNGS: Decreased breath sounds. HEART: S1, S2. EXTREMITIES: Marked hematoma in the right upper thigh. There is no vascular compromise of the lower extremities. LABORATORY DATA: Hemoglobin is 7.2. Chemistries, BUN and creatinine are 41 and 0.9. IMPRESSION: 1. Marked hematoma from the groin site from a catheterization. 2. Marked pulmonary hypertension. 3. Percutaneous transluminal coronary angioplasty of the proximal right coronary artery. 4. Resolution of chest pain. 5. Anemia. Given these findings, the patient is receiving packed red blood cells, we will obtain a surgical consult to evaluate skin tear and hematoma. Shaheed Handy MD
[2018-07-16 20:04] LABS: GRAN # 7.22 (1.4-6.5); GRAN % 84.5 % (50.0-68.0); HEMOGLOBIN 8.5 g/dL (12.0-16.0); LYMPH # 0.8 (1.2-3.4); LYMPH % 9.7 % (22.0-35.0); MEAN CELL VOLUME 94.2 fl (80.0-105.0); MEAN CORPUSCULAR HEMOGLOBIN 30.8 pg (25.0-35.0); MEAN CORPUSCULAR HGB CONC 32.7 g/dl (31.0-37.0); MEAN PLATELET VOLUME 9.4 fl (7.0-11.0); MONO # 0.5 (0.1-0.6); MONO % 5.8 % (1.0-6.0); RBC 2.76 10^6/uL (3.5-6.1); RED CELL DISTRIBUTION WIDTH 15.9 % (11.5-14.5); WHITE BLOOD COUNT 8.6 10^3/uL (4.5-11.0)
--- NOTE | 2018-07-16 22:07 | CON ---
DATE OF CONSULTATION: 07/15/2018 HISTORY OF PRESENT ILLNESS: Shortly, the patient is an 82-year-old female with multiple medical issues including COPD, pulmonary hypertension, diastolic CHF and cellulitis. The patient was admitted into ICU unit for evaluation of chest pain. Psych consult was called for evaluation of change in mental status. This telegraphic typewriter operator attempted to speak to the patient on 07/14/2018, but the patient was on BiPAP machine and was not able to participate in interview. The patient was seen and examined on 07/15/2017. The patient presented to be alert. The patient was oriented to self, time and place. The patient reported at present moment she feels much better. The patient reported that she was feeling overwhelmed due to medical issues because she never gets sick. The patient reported that at the present moment she feels okay. The patient denied feeling depressed. Denied thoughts of harming herself or others. Denied intent or plan. The patient reported that she has family. She has nephew and niece who are involved into the patient's care. Besides that, there is no psychotic symptoms. The patient is participating in treatment. No agitation or aggression. Collateral is from the nursing staff. The patient is pleasant and cooperative. No behavioral issues. VITAL SIGNS: Reviewed. Pulse was 97, blood pressure 128/79, respirations 20. MEDICATIONS: Reviewed. The patient is not on any psychotropic medications. The patient is on antibiotics and prednisone and many more. LABS: Reviewed. Microbiology reviewed. MRSA was positive for nares. MENTAL STATUS EXAMINATION: The patient presented to be alert and oriented, pleasant, cooperative. Fair eye contact. Mood described as "I am not depressed." Affect was constricted. Thought process coherent and goal directed. Thought content, the patient denied visual, auditory or tactile hallucinations. Denied paranoid ideation. The patient denied thoughts of harming herself or others. Denied intent or plan. Insight and judgment fair. Impulses are well controlled. The patient denied history of mental illness. The patient denied history of being depressed. The patient denied history of suicidal attempts in the past. IMPRESSION: Most likely the patient had altered mental status due to general medical condition. Delirium is improving. PLAN: I wished the patient best of luck to continue improving. Continue current management and current medications. Family is involved. Advanced directives needs to be discussed in the future, and if the patient has capacity to point someone to be her power of corporate associate attorney, it would be beneficial for the future. Meanwhile, the patient posed no imminent danger to self or others. Should you have any questions, give me a call back. Asha Calixto MD
[2018-07-17] MEDS: Vancomycin 1gm in NS 250ml 1 GM/250 ML BAG IVPB SCH
[2018-07-17] MEDS: Acetylcysteine 20% Inhal Soln (4ml) IH SCH ×4 (02:00→19:53)
[2018-07-17] MEDS: Levalbuterol 0.63 MG/3 ML Inhal Soln UD IH SCH ×4 (02:00→19:54)
[2018-07-17] MEDS: Morphine 2 mg/ml ISec IVP PRN ×2 (02:33→06:45)
[2018-07-17 05:30] LABS: GRAN # 6.81 (1.4-6.5); GRAN % 82.2 % (50.0-68.0); HEMOGLOBIN 10.4 g/dL (12.0-16.0); LYMPH # 0.9 (1.2-3.4); LYMPH % 11.3 % (22.0-35.0); MEAN CELL VOLUME 94.7 fl (80.0-105.0); MEAN CORPUSCULAR HEMOGLOBIN 30.4 pg (25.0-35.0); MEAN CORPUSCULAR HGB CONC 32.1 g/dl (31.0-37.0); MEAN PLATELET VOLUME 10.2 fl (7.0-11.0); MONO # 0.5 (0.1-0.6); MONO % 6.5 % (1.0-6.0); RBC 3.42 10^6/uL (3.5-6.1); RED CELL DISTRIBUTION WIDTH 15.9 % (11.5-14.5); WHITE BLOOD COUNT 8.3 10^3/uL (4.5-11.0)
[2018-07-17] MEDS: Aztreonam 1 Gm in NS 100mL 100 ML IVPB SCH ×3 (05:39→22:12)
--- NOTE | 2018-07-17 07:19 | CP.CCUPN ---
<Ousmane Carbajal - Last Filed: 07/17/18 10:06> CCU Subjective - Physician Review Subjective (Free Text): 07/17/18 07:14 Michael Carbajal PGY 2 - ICU Progress Note Patient seen and examined this AM. No acute events reported overnight. Patient reports pain associated with right groin and previous [facility] site. She reports improved symptoms over past 24-48 hours. Patient denies chest pain, shortness of breath, abdominal pain, nausea, vomiting, fever, chills. CCU Objective - Vital Signs / Intake & Output Vital Signs (Last 4 hours): Vital Signs Temp Pulse Resp BP Pulse Ox 07/17/18 06:20 98.6 F 109 H 14 77 L 07/17/18 06:15 98.6 F 113 H 76 L 07/17/18 06:10 98.6 F 112 H 21 74 L 07/17/18 06:00 98.6 F 118 H 16 111/46 L 76 L 07/17/18 05:50 98.6 F 111 H 13 88 L 07/17/18 05:40 98.6 F 101 H 18 91 L 07/17/18 05:30 98.6 F 103 H 93 L 07/17/18 05:20 98.6 F 101 H 27 H 100 07/17/18 05:10 98.6 F 97 H 24 07/17/18 05:09 98.6 F 23 07/17/18 05:08 98.6 F 07/17/18 05:07 98.6 F 07/17/18 05:06 98.6 F 07/17/18 05:05 98.6 F 07/17/18 05:04 98.6 F 07/17/18 05:03 98.6 F 07/17/18 05:02 98.6 F 07/17/18 05:01 98.6 F 07/17/18 05:00 95/43 L 07/17/18 04:59 98.6 F 07/17/18 04:58 98.6 F 07/17/18 04:57 98.6 F 07/17/18 04:56 98.6 F 07/17/18 04:55 98.6 F 07/17/18 04:54 98.6 F 07/17/18 04:53 98.6 F 07/17/18 04:52 98.6 F 07/17/18 04:51 98.6 F 07/17/18 04:50 98.6 F 07/17/18 04:49 98.6 F 07/17/18 04:48 98.6 F 07/17/18 04:47 98.6 F 07/17/18 04:46 98.6 F 07/17/18 04:45 98.6 F 07/17/18 04:44 98.6 F 07/17/18 04:43 98.6 F 07/17/18 04:42 98.6 F Intake and Output (Last 8hrs): Intake & Output 07/16/18 07/17/18 07/17/18 22:59 06:59 14:59 Intake Total 1560 375 Output Total 900 Balance 660 375 Intake: IV 350 Right Hand 350 Oral 240 Blood Product 960 325 Red Blood Cells Cpd As1 320 Lr Unit [id number] Red Blood Cells Cpd As1 0 325 Lr Unit [id number] Other 10 50 Red Blood Cells Cpd As1 10 Lr Unit [id number] Red Blood Cells Cpd As1 50 Lr Unit [id number] Output: Urine 900 Urethral (Fried) 900 Other: # Bowel Movements 0 - Physical Exam Head: Positive for: Atraumatic, Normocephalic Pupils: Positive for: PERRL Extroacular Muscles: Positive for: EOMI Conjunctiva: Positive for: Normal Mouth: Positive for: Moist Mucous Membranes Neck: Positive for: Normal Range of Motion Respiratory/Chest: Positive for: Decreased Breath Sounds (decreased in anterior lung rico). Negative for: Respiratory Distress, Accessory Muscle Use Cardiovascular: Positive for: Normal S1, S2, Tachycardic. Negative for: Murmurs Abdomen: Negative for: Tenderness, Distention, Peritoneal Signs Back: Positive for: Normal Inspection Upper Extremity: Positive for: Normal Inspection. Negative for: Cyanosis, Edema Lower Extremity: Positive for: Edema (+1 pitting edema ), NORMAL PULSES, Other (large hematoma on right groin noted to be contained within previous demarcated region with pen, fluid filled blistering noted on right groin x 2, previous blister open without significant drainage, multiple ecchymotic lesions noted of varying ages) Neurological: Positive for: GCS=15, CN II-XII Intact, Speech Normal Skin: Positive for: Warm, Dry, Normal Color. Negative for: Rashes Psychiatric: Positive for: Alert, Oriented x 3, Normal Insight, Normal Concentration - Medications Active Medications: Active Medications Generic Name Dose Route Start Last Admin Trade Name Freq PRN Reason Stop Dose Admin Acetaminophen 650 mg 07/10/18 18:08 Tylenol 325mg Tab PO Q6 PRN TEMP>=99.5F Acetaminophen 650 mg 07/10/18 18:08 Tylenol 650 Mg Supp RC Q6H PRN TEMP>=99.5F Acetylcysteine 4 ml 07/16/18 10:00 07/16/18 20:26 Acetylcysteine 20% IH 4 ml [id number] ARAM Administration Arformoterol Tartrate 15 mcg 07/10/18 20:00 07/16/18 20:26 Brovana IH 15 mcg [id number] ARAM Administration Ascorbic Acid 500 mg 07/12/18 19:15 07/16/18 18:10 Vitamin C 500 Mg Tab PO 500 mg BID ARAM Administration Aspirin 81 mg 07/11/18 10:00 07/16/18 09:25 Ecotrin PO 81 mg DAILY ARAM Administration Atorvastatin Calcium 40 mg 07/10/18 18:15 07/16/18 18:07 Lipitor PO 40 mg DIN ARAM Administration Clopidogrel Bisulfate 75 mg 07/14/18 16:00 07/16/18 09:25 Plavix PO 75 mg DAILY ARAM Administration Diltiazem HCl 30 mg 07/11/18 18:00 07/16/18 09:20 Cardizem PO Not Given Q6 ARAM Docusate Sodium 100 mg 07/11/18 10:00 07/16/18 18:06 Colace PO 100 mg TID ARAM Administration Escitalopram Oxalate 5 mg 07/13/18 22:00 07/16/18 21:59 Lexapro PO 5 mg HS ARAM Administration Famotidine 20 mg 07/16/18 10:00 07/16/18 21:59 Pepcid PO 20 mg 1000,2200 ARAM Administration Furosemide 20 mg 07/10/18 22:00 07/16/18 21:59 Lasix IVP 20 mg Q12 ARAM Administration Heparin Sodium (Porcine) 5,000 units 07/14/18 11:15 07/15/18 13:42 Heparin SC 5,000 units Q8H ARAM Administration Protocol Aztreonam 100 mls @ 100 mls/hr 07/16/18 09:45 07/17/18 05:39 Azactam 1 Gm IVPB 07/23/18 06:59 100 mls/hr Q8 ARAM Administration Protocol Doxycycline Hyclate 100 mg/ 100 mls @ 100 mls/hr 07/16/18 10:00 07/16/18 21:58 Sodium Chloride IVPB 100 mls/hr Q12 ARAM Administration Protocol Vancomycin HCl 1 gm in 250 mls @ 167 mls/hr 07/16/18 12:45 07/17/18 00:00 Vancomycin 1gm IVPB 167 mls/hr Q12H ARAM Administration Protocol Levalbuterol HCl 0.63 mg 07/16/18 10:00 07/16/18 20:26 Xopenex IH 0.63 mg [id number] ARAM Administration Midodrine 5 mg 07/11/18 18:00 07/16/18 18:07 Proamatine PO 5 mg TID ARAM Administration Montelukast Sodium 10 mg 07/10/18 22:00 07/16/18 21:59 Singulair PO 10 mg HS ARAM Administration Morphine Sulfate 2 mg 07/15/18 15:42 07/17/18 06:45 Morphine IVP 2 mg Q4H PRN Administration Pain, severe (8-10) Multivitamins/Vitamin C 15 ml 07/13/18 08:00 07/16/18 09:26 Multi-Delyn Liquid PO 15 ml 0800 ARAM Administration Mupirocin 0 gm 07/14/18 19:15 07/16/18 18:06 Bactroban Ointment NS 07/19/18 10:01 1 applic BID ARAM Administration Ambrisentan [ 5 mg 07/11/18 10:00 07/16/18 18:02 Letairis] 5 Mg ( PO Not Given Home Med) DAILY [facility] Ondansetron HCl 4 mg 07/10/18 18:08 Zofran Inj IVP Q4H PRN Nausea/Vomiting Prednisone 40 mg 07/15/18 10:00 07/16/18 09:25 Prednisone Tab PO 40 mg DAILY ARAM Administration Sildenafil Citrate 20 mg 07/11/18 10:00 07/16/18 18:07 Revatio PO 20 mg TID ARAM Administration - Patient Studies Lab Studies: Lab Studies 07/17/18 07/16/18 07/16/18 Range/Units 05:20 19:50 18:08 WBC 8.3 8.6 (4.5-11.0) 10^3/uL RBC 3.42 L 2.76 L (3.5-6.1) 10^6/uL Hgb 10.4 L 8.5 L (12.0-16.0) g/dL Hct 32.4 L 26.0 L (36.0-48.0) % MCV 94.7 94.2 (80.0-105.0) fl MCH 30.4 30.8 (25.0-35.0) pg MCHC 32.1 32.7 (31.0-37.0) g/dl RDW 15.9 H 15.9 H (11.5-14.5) % Plt Count 77 L 71 L (120.0-450.0) 10^3/uL MPV 10.2 9.4 (7.0-11.0) fl Gran % 82.2 H 84.5 H (50.0-68.0) % Lymph % (Auto) 11.3 L 9.7 L (22.0-35.0) % [place] % (Auto) 6.5 H 5.8 (1.0-6.0) % Eos % (Auto) 0.0 L 0.0 L (1.5-5.0) % Baso % (Auto) 0.0 0.0 (0.0-3.0) % Gran # 6.81 H 7.22 H (1.4-6.5) Lymph # (Auto) 0.9 L 0.8 L (1.2-3.4) [place] # (Auto) 0.5 0.5 (0.1-0.6) Eos # (Auto) 0.0 0.0 (0.0-0.7) Baso # (Auto) 0.00 0.00 (0.0-2.0) K/mm3 PT (9.4-12.5) SECONDS INR APTT (25.1-36.5) Seconds Influenza Type A Ab (<1:8) titer Influenza Type B Ab (<1:8) titer Ur L.pneumophila Ag Negative (NEGATIVE) Blood Type Antibody Screen Crossmatch BBK History Checked 07/16/18 07/15/18 07/13/18 Range/Units 08:15 20:30 10:27 WBC (4.5-11.0) 10^3/uL RBC (3.5-6.1) 10^6/uL Hgb (12.0-16.0) g/dL Hct (36.0-48.0) % MCV (80.0-105.0) fl MCH (25.0-35.0) pg MCHC (31.0-37.0) g/dl RDW (11.5-14.5) % Plt Count (120.0-450.0) 10^3/uL MPV (7.0-11.0) fl Gran % (50.0-68.0) % Lymph % (Auto) (22.0-35.0) % [place] % (Auto) (1.0-6.0) % Eos % (Auto) (1.5-5.0) % Baso % (Auto) (0.0-3.0) % Gran # (1.4-6.5) Lymph # (Auto) (1.2-3.4) [place] # (Auto) (0.1-0.6) Eos # (Auto) (0.0-0.7) Baso # (Auto) (0.0-2.0) K/mm3 PT 12.4 (9.4-12.5) SECONDS INR 1.08 APTT 27.5 (25.1-36.5) Seconds Influenza Type A Ab 1:16 H (<1:8) titer Influenza Type B Ab <1:8 (<1:8) titer Ur L.pneumophila Ag (NEGATIVE) Blood Type O POSITIVE Antibody Screen Negative Crossmatch See Detail BBK History Checked No verified bt Laboratory Results - last 24 hr 07/13/18 07/15/18 07/16/18 10:27 20:30 08:15 WBC RBC Hgb Hct MCV MCH MCHC RDW Plt Count MPV Gran % Lymph % (Auto) [place] % (Auto) Eos % (Auto) Baso % (Auto) Gran # Lymph # (Auto) [place] # (Auto) Eos # (Auto) Baso # (Auto) PT 12.4 INR 1.08 APTT 27.5 Influenza Type A Ab 1:16 H Influenza Type B Ab <1:8 Ur L.pneumophila Ag Blood Type O POSITIVE Antibody Screen Negative Crossmatch See Detail BBK History Checked No verified bt 07/16/18 07/16/18 07/17/18 18:08 19:50 05:20 WBC 8.6 8.3 RBC 2.76 L 3.42 L Hgb 8.5 L 10.4 L Hct 26.0 L 32.4 L MCV 94.2 94.7 MCH 30.8 30.4 MCHC 32.7 32.1 RDW 15.9 H 15.9 H Plt Count 71 L 77 L MPV 9.4 10.2 Gran % 84.5 H 82.2 H Lymph % (Auto) 9.7 L 11.3 L [place] % (Auto) 5.8 6.5 H Eos % (Auto) 0.0 L 0.0 L Baso % (Auto) 0.0 0.0 Gran # 7.22 H 6.81 H Lymph # (Auto) 0.8 L 0.9 L [place] # (Auto) 0.5 0.5 Eos # (Auto) 0.0 0.0 Baso # (Auto) 0.00 0.00 PT INR APTT Influenza Type A Ab Influenza Type B Ab Ur L.pneumophila Ag Negative Blood Type Antibody Screen Crossmatch BBK History Checked Radiology Impressions: Radiology Impressions Lower Extremity CT 07/15/18 15:59 IMPRESSION: A 19.6 cm mixed hematoma is appreciated within the deep and superficial subcutaneous fat of the anteromedial right thigh as discussed above originating at the level of the mid right inguinal region extending inferior to the mid thigh level. Incidental potential anasarca in both thighs as imaged. Mild pelvic ascites noted incidentally. Concordant preliminary report from [facility], 07/15/2018 17:29 p.m.. Chest/Abdomen/Pelvis CT 07/15/18 16:39 IMPRESSION: Bilateral pneumonia and large pleural effusions. Large complex fluid collection in the right groin consistent with hematoma. Diffuse subcutaneous edema consistent with anasarca. Duplex Scan Lower Extremity Artery 07/16/18 09:16 IMPRESSION: 1. No sonographic evidence for pseudoaneurysm or AV fistula in the right groin. 2. Large hematoma in the right groin and upper thigh Review of Systems - Review of Systems All systems: reviewed and no additional remarkable complaints except (as mentioned in HPI) Critical Care Progress Note - Nutrition Nutrition: Nutrition Category Date Time Status Dysphagia/Modified Consistency Diet [DIET] Diets 07/16/18 Breakfast Ordered Assessment/Plan - Assessment and Plan (Free Text) Assessment: 82 year old female with past medical history of atrial fibrillation, COPD, pulmonary hypertension, and diastolic CHF initially presented to the hospital with crushing substernal chest pain while working with physical therapy. Patient underwent C cath with Dr. Handy, developed right groin site hematoma and continues to be monitored in ICU. Patient is HDS, s/p 4 units pRBC, hematoma appears to be stabilizing. Plan: Neuro: -AAOx3, No FND, moving extremities past midline. -Monitor neuro status. Cardio: Diastolic Congestive Heart Failure -Echocardiogram(04/2018): EF: 68% -CXR(07/13): cardiomegaly, hypoinflated lungs, bilateral pleural effusion and associated consolidating pulmonary venous congestion -Continue with aspirin 81 daily, lipitor 40 mg daily, lasix 20 mg Q12 -Cardiac Cath (07/14): RCA 70% with BMSx1, LAD and LCX with atherosclerotic plaque. RASP 18, no RVSP unable to obtain, LVEF 60% -Maintain MAP>65. -Maintain HDS Atrial Fibrillation with RVR -EKG 07/14: Atrial Fibrillation with RVR with HR: 76 -Continue with cardizem 30 mg Q6, not currently on therapeutic anticoagulation. -Cardiology, Dr. Handy, following follow recs Hematoma of Right Thigh -H/H stable today with Hbg 10.2 on AM labs -Patient s/p 4 transfusions of pRBC -Right leg CT: large heterogenous fluid collection and hematoma measuring 18x7.5x8 cm suspected at proximal medial aspect of thigh. Subcutaneous edema and ascites in pelvis. -Abdominal and Pelvis CT to evaluate for retroperitoneal hematoma: large air space opacities in bilateral lungs suspicious for aspiration pneumonitis, moderate cardiomegaly, bilateral pleural effusions, extensive subcutaneous stranding through abdomen and pelvis, nonspecific enterocolitis, right femoral hernia vs. abscess, abdominal ascites -LE US of Right leg without evidence of pseudoanuerysm -Surgical team consulted for right thigh hematoma with no plans for surgical intervention at this time Pulm: Hypercapneic Respiratory Failure 2/2 to COPD -Continue with brovana 15 mcg Q12, singulair 10 mg HS -Taper steroids. Stop solumedrol 20 mg IV Q8 and start prednisone 40 mg daily. -O2 supplementation to maintain Spo2>90 Pao2>60 -Elevate bed to 30 degrees Pulmonary Hypertension -Last RVSP: 145 -Continue with letairis 5 mg PO daily and revatio 20 mg PO TID GI: - HHD GI Prophylaxis -Protonix 40 mg PO daily /Nephro: -BUN/Cr stable -Good urine output with fried intact, monitor UOP -Replete electrolytes as needed -Maintain euvolemia Endocrinology: -Random glucose -Maintain euglycemia. Heme/Onc: Hematoma of Right Thigh -Hematoma stable/improving over past 24 hours -H/H stable, s/p 4 transfusions pRBC -Right leg CT: large heterogenous fluid collection and hematoma measuring 18x7.5x8 cm suspected at proximal medial aspect of thigh. Subcutaneous edema and ascites in pelvis. -Abdominal and Pelvis CT to evaluate for retroperitoneal hematoma: large air space opacities in bilateral lungs suspicious for aspiration pneumonitis, moderate cardiomegaly, bilateral pleural effusions, extensive subcutaneous stranding through abdomen and pelvis, nonspecific enterocolitis, right femoral hernia vs. abscess, abdominal ascites -LE US of Right leg without evidence of pseudoanuerysm -Recheck CBC at 10am if H/H stable will likely transfer patient DVT prophylaxis -SCD, heparin 5000 U subq Q8 held ID: Rule out pneumonia -Afebrile, no leukocytosis -CXR from 07/13: cardiomegaly, hypoinflated lungs, bilateral pleural effusion and associated consolidating pulmonary venous congestion -Follow up S. Pneumonia antigen, -urine legionella antigen is negative, Influenza B negative -Influenza A positive -MRSA negative -Primary team placed patient on Aztreonam, Doxycycline -ID Consulted for - Started vancomycin - f/u blood, sputum clx Psych: Depression -Dr. Childers with Psychiatry consulted -Continue with lexapro 5 mg PO HS Dispo: Patient is currently DNR/DNI. Will discuss with cardio and primary regarding potential transfer for telemetry if patient remains stable throughout day Patient seen, case and plan discussed with Dr. Londono. <Yoan Londono - Last Filed: 07/17/18 11:02> CCU Objective - Vital Signs / Intake & Output Vital Signs (Last 4 hours): Vital Signs BP 07/17/18 09:05 109/50 L Intake and Output (Last 8hrs): Intake & Output 07/16/18 07/17/18 07/17/18 22:59 06:59 14:59 Intake Total 1560 1215 Output Total 900 900 Balance 660 315 Weight 136 lb Intake: IV 350 200 Right Hand 350 200 Oral 240 0 Blood Product 960 965 Red Blood Cells Cpd As1 320 Lr Unit [id number] Red Blood Cells Cpd As1 0 325 Lr Unit [id number] Other 10 50 Red Blood Cells Cpd As1 10 Lr Unit [id number] Red Blood Cells Cpd As1 50 Lr Unit [id number] Output: Urine 900 900 Urethral (Fried) 900 900 Oral Regurgitation 0 Other: # Bowel Movements 0 0 - Medications Active Medications: Active Medications Generic Name Dose Route Start Last Admin Trade Name Freq PRN Reason Stop Dose Admin Acetaminophen 650 mg 07/10/18 18:08 Tylenol 325mg Tab PO Q6 PRN TEMP>=99.5F Acetaminophen 650 mg 07/10/18 18:08 Tylenol 650 Mg Supp RC Q6H PRN TEMP>=99.5F Acetylcysteine 4 ml 07/16/18 10:00 07/17/18 07:38 Acetylcysteine 20% IH 4 ml [id number] ARAM Administration Arformoterol Tartrate 15 mcg 07/10/18 20:00 07/17/18 07:37 Brovana IH 15 mcg [id number] ARAM Administration Ascorbic Acid 500 mg 07/12/18 19:15 07/17/18 09:02 Vitamin C 500 Mg Tab PO 500 mg BID ARAM Administration Aspirin 81 mg 07/11/18 10:00 07/17/18 09:02 Ecotrin PO 81 mg DAILY ARAM Administration Atorvastatin Calcium 40 mg 07/10/18 18:15 07/16/18 18:07 Lipitor PO 40 mg DIN ARAM Administration Clopidogrel Bisulfate 75 mg 07/14/18 16:00 07/17/18 09:02 Plavix PO 75 mg DAILY ARAM Administration Diltiazem HCl 30 mg 07/11/18 18:00 07/16/18 09:20 Cardizem PO Not Given Q6 ARAM Docusate Sodium 100 mg 07/11/18 10:00 07/17/18 09:01 Colace PO 100 mg TID ARAM Administration Escitalopram Oxalate 5 mg 07/13/18 22:00 07/16/18 21:59 Lexapro PO 5 mg HS ARAM Administration Famotidine 20 mg 07/16/18 10:00 07/17/18 09:02 Pepcid PO 20 mg 1000,2200 ARAM Administration Furosemide 20 mg 07/10/18 22:00 07/17/18 09:05 Lasix IVP 20 mg Q12 ARAM Administration Heparin Sodium (Porcine) 5,000 units 07/14/18 11:15 07/15/18 13:42 Heparin SC 5,000 units Q8H ARAM Administration Protocol Aztreonam 100 mls @ 100 mls/hr 07/16/18 09:45 07/17/18 05:39 Azactam 1 Gm IVPB 07/23/18 09:46 100 mls/hr Q8 ARAM Administration Protocol Doxycycline Hyclate 100 mg/ 100 mls @ 100 mls/hr 07/16/18 10:00 07/17/18 09:02 Sodium Chloride IVPB 100 mls/hr Q12 ARAM Administration Protocol Levalbuterol HCl 0.63 mg 07/16/18 10:00 07/17/18 07:37 Xopenex IH 0.63 mg [id number] ARAM Administration Midodrine 5 mg 07/11/18 18:00 07/17/18 09:02 Proamatine PO 5 mg TID ARAM Administration Montelukast Sodium 10 mg 07/10/18 22:00 07/16/18 21:59 Singulair PO 10 mg HS ARAM Administration Morphine Sulfate 2 mg 07/15/18 15:42 07/17/18 06:45 Morphine IVP 2 mg Q4H PRN Administration Pain, severe (8-10) Multivitamins/Vitamin C 15 ml 07/13/18 08:00 07/17/18 09:02 Multi-Delyn Liquid PO 15 ml 0800 ARAM Administration Mupirocin 0 gm 07/14/18 19:15 07/16/18 18:06 Bactroban Ointment NS 07/19/18 10:01 1 applic BID ARAM Administration Ambrisentan [ 5 mg 07/11/18 10:00 07/16/18 18:02 Letairis] 5 Mg ( PO Not Given Home Med) DAILY [facility] Ondansetron HCl 4 mg 07/10/18 18:08 Zofran Inj IVP Q4H PRN Nausea/Vomiting Prednisone 40 mg 07/15/18 10:00 07/17/18 09:02 Prednisone Tab PO 40 mg DAILY ARAM Administration Sildenafil Citrate 20 mg 07/11/18 10:00 07/17/18 09:02 Revatio PO 20 mg TID ARAM Administration - Patient Studies Lab Studies: Lab Studies 07/17/18 07/17/18 07/17/18 Range/Units 10:43 06:18 05:20 WBC 9.0 8.3 (4.5-11.0) 10^3/uL RBC 3.26 L 3.42 L (3.5-6.1) 10^6/uL Hgb 9.8 L 10.4 L (12.0-16.0) g/dL Hct 31.1 L 32.4 L (36.0-48.0) % MCV 95.4 94.7 (80.0-105.0) fl MCH 30.1 30.4 (25.0-35.0) pg MCHC 31.5 32.1 (31.0-37.0) g/dl RDW 15.9 H 15.9 H (11.5-14.5) % Plt Count 75 L 77 L (120.0-450.0) 10^3/uL MPV 10.4 10.2 (7.0-11.0) fl Gran % 82.4 H 82.2 H (50.0-68.0) % Lymph % (Auto) 11.0 L 11.3 L (22.0-35.0) % [place] % (Auto) 6.5 H 6.5 H (1.0-6.0) % Eos % (Auto) 0.1 L 0.0 L (1.5-5.0) % Baso % (Auto) 0.0 0.0 (0.0-3.0) % Gran # 7.45 H 6.81 H (1.4-6.5) Lymph # (Auto) 1.0 L 0.9 L (1.2-3.4) [place] # (Auto) 0.6 0.5 (0.1-0.6) Eos # (Auto) 0.0 0.0 (0.0-0.7) Baso # (Auto) 0.00 0.00 (0.0-2.0) K/mm3 Sodium 140 (132-148) mmol/L Potassium 4.1 (3.6-5.0) mmol/L Chloride 98 (98-107) mmol/L Carbon Dioxide 40 H (21-33) mmol/L Anion Gap 7 L (10-20) BUN 39 H (7-21) mg/dL Creatinine 1.0 (0.7-1.2) mg/dl Est GFR ( Amer) > 60 Est GFR (Non-Af Amer) 53 Random Glucose 119 H (70-110) mg/dL Calcium 8.5 (8.4-10.5) mg/dL Phosphorus 2.9 (2.5-4.5) mg/dL Magnesium 1.8 (1.7-2.2) mg/dL Total Bilirubin 0.8 (0.2-1.3) mg/dL Direct Bilirubin 0.4 (0.0-0.4) mg/dL AST 32 (14-36) U/L ALT 40 (7-56) U/L Alkaline Phosphatase 47 (38-126) U/L Total Protein 5.2 L (5.8-8.3) g/dL Albumin 2.9 L (3.0-4.8) g/dL Globulin 2.3 gm/dL Albumin/Globulin Ratio 1.2 (1.1-1.8) Influenza Type A Ab (<1:8) titer Influenza Type B Ab (<1:8) titer Ur L.pneumophila Ag (NEGATIVE) Blood Type Antibody Screen Crossmatch BBK History Checked 07/16/18 07/16/18 07/15/18 Range/Units 19:50 18:08 20:30 WBC 8.6 (4.5-11.0) 10^3/uL RBC 2.76 L (3.5-6.1) 10^6/uL Hgb 8.5 L (12.0-16.0) g/dL Hct 26.0 L (36.0-48.0) % MCV 94.2 (80.0-105.0) fl MCH 30.8 (25.0-35.0) pg MCHC 32.7 (31.0-37.0) g/dl RDW 15.9 H (11.5-14.5) % Plt Count 71 L (120.0-450.0) 10^3/uL MPV 9.4 (7.0-11.0) fl Gran % 84.5 H (50.0-68.0) % Lymph % (Auto) 9.7 L (22.0-35.0) % [place] % (Auto) 5.8 (1.0-6.0) % Eos % (Auto) 0.0 L (1.5-5.0) % Baso % (Auto) 0.0 (0.0-3.0) % Gran # 7.22 H (1.4-6.5) Lymph # (Auto) 0.8 L (1.2-3.4) [place] # (Auto) 0.5 (0.1-0.6) Eos # (Auto) 0.0 (0.0-0.7) Baso # (Auto) 0.00 (0.0-2.0) K/mm3 Sodium (132-148) mmol/L Potassium (3.6-5.0) mmol/L Chloride (98-107) mmol/L Carbon Dioxide (21-33) mmol/L Anion Gap (10-20) BUN (7-21) mg/dL Creatinine (0.7-1.2) mg/dl Est GFR ( Amer) Est GFR (Non-Af Amer) Random Glucose (70-110) mg/dL Calcium (8.4-10.5) mg/dL Phosphorus (2.5-4.5) mg/dL Magnesium (1.7-2.2) mg/dL Total Bilirubin (0.2-1.3) mg/dL Direct Bilirubin (0.0-0.4) mg/dL AST (14-36) U/L ALT (7-56) U/L Alkaline Phosphatase (38-126) U/L Total Protein (5.8-8.3) g/dL Albumin (3.0-4.8) g/dL Globulin gm/dL Albumin/Globulin Ratio (1.1-1.8) Influenza Type A Ab (<1:8) titer Influenza Type B Ab (<1:8) titer Ur L.pneumophila Ag Negative (NEGATIVE) Blood Type O POSITIVE Antibody Screen Negative Crossmatch See Detail BBK History Checked No verified bt 07/13/18 Range/Units 10:27 WBC (4.5-11.0) 10^3/uL RBC (3.5-6.1) 10^6/uL Hgb (12.0-16.0) g/dL Hct (36.0-48.0) % MCV (80.0-105.0) fl MCH (25.0-35.0) pg MCHC (31.0-37.0) g/dl RDW (11.5-14.5) % Plt Count (120.0-450.0) 10^3/uL MPV (7.0-11.0) fl Gran % (50.0-68.0) % Lymph % (Auto) (22.0-35.0) % [place] % (Auto) (1.0-6.0) % Eos % (Auto) (1.5-5.0) % Baso % (Auto) (0.0-3.0) % Gran # (1.4-6.5) Lymph # (Auto) (1.2-3.4) [place] # (Auto) (0.1-0.6) Eos # (Auto) (0.0-0.7) Baso # (Auto) (0.0-2.0) K/mm3 Sodium (132-148) mmol/L Potassium (3.6-5.0) mmol/L Chloride (98-107) mmol/L Carbon Dioxide (21-33) mmol/L Anion Gap (10-20) BUN (7-21) mg/dL Creatinine (0.7-1.2) mg/dl Est GFR ( Amer) Est GFR (Non-Af Amer) Random Glucose (70-110) mg/dL Calcium (8.4-10.5) mg/dL Phosphorus (2.5-4.5) mg/dL Magnesium (1.7-2.2) mg/dL Total Bilirubin (0.2-1.3) mg/dL Direct Bilirubin (0.0-0.4) mg/dL AST (14-36) U/L ALT (7-56) U/L Alkaline Phosphatase (38-126) U/L Total Protein (5.8-8.3) g/dL Albumin (3.0-4.8) g/dL Globulin gm/dL Albumin/Globulin Ratio (1.1-1.8) Influenza Type A Ab 1:16 H (<1:8) titer Influenza Type B Ab <1:8 (<1:8) titer Ur L.pneumophila Ag (NEGATIVE) Blood Type Antibody Screen Crossmatch BBK History Checked Laboratory Results - last 24 hr 07/13/18 07/15/18 07/16/18 10:27 20:30 18:08 WBC RBC Hgb Hct MCV MCH MCHC RDW Plt Count MPV Gran % Lymph % (Auto) [place] % (Auto) Eos % (Auto) Baso % (Auto) Gran # Lymph # (Auto) [place] # (Auto) Eos # (Auto) Baso # (Auto) Sodium Potassium Chloride Carbon Dioxide Anion Gap BUN Creatinine Est GFR ( Amer) Est GFR (Non-Af Amer) Random Glucose Calcium Phosphorus Magnesium Total Bilirubin Direct Bilirubin AST ALT Alkaline Phosphatase Total Protein Albumin Globulin Albumin/Globulin Ratio Influenza Type A Ab 1:16 H Influenza Type B Ab <1:8 Ur L.pneumophila Ag Negative Blood Type O POSITIVE Antibody Screen Negative Crossmatch See Detail BBK History Checked No verified bt 07/16/18 07/17/18 07/17/18 19:50 05:20 06:18 WBC 8.6 8.3 RBC 2.76 L 3.42 L Hgb 8.5 L 10.4 L Hct 26.0 L 32.4 L MCV 94.2 94.7 MCH 30.8 30.4 MCHC 32.7 32.1 RDW 15.9 H 15.9 H Plt Count 71 L 77 L MPV 9.4 10.2 Gran % 84.5 H 82.2 H Lymph % (Auto) 9.7 L 11.3 L [place] % (Auto) 5.8 6.5 H Eos % (Auto) 0.0 L 0.0 L Baso % (Auto) 0.0 0.0 Gran # 7.22 H 6.81 H Lymph # (Auto) 0.8 L 0.9 L [place] # (Auto) 0.5 0.5 Eos # (Auto) 0.0 0.0 Baso # (Auto) 0.00 0.00 Sodium 140 Potassium 4.1 Chloride 98 Carbon Dioxide 40 H Anion Gap 7 L BUN 39 H Creatinine 1.0 Est GFR ( Amer) > 60 Est GFR (Non-Af Amer) 53 Random Glucose 119 H Calcium 8.5 Phosphorus 2.9 Magnesium 1.8 Total Bilirubin 0.8 Direct Bilirubin 0.4 AST 32 ALT 40 Alkaline Phosphatase 47 Total Protein 5.2 L Albumin 2.9 L Globulin 2.3 Albumin/Globulin Ratio 1.2 Influenza Type A Ab Influenza Type B Ab Ur L.pneumophila Ag Blood Type Antibody Screen Crossmatch BBK History Checked 07/17/18 10:43 WBC 9.0 RBC 3.26 L Hgb 9.8 L Hct 31.1 L MCV 95.4 MCH 30.1 MCHC 31.5 RDW 15.9 H Plt Count 75 L MPV 10.4 Gran % 82.4 H Lymph % (Auto) 11.0 L [place] % (Auto) 6.5 H Eos % (Auto) 0.1 L Baso % (Auto) 0.0 Gran # 7.45 H Lymph # (Auto) 1.0 L [place] # (Auto) 0.6 Eos # (Auto) 0.0 Baso # (Auto) 0.00 Sodium Potassium Chloride Carbon Dioxide Anion Gap BUN Creatinine Est GFR ( Amer) Est GFR (Non-Af Amer) Random Glucose Calcium Phosphorus Magnesium Total Bilirubin Direct Bilirubin AST ALT Alkaline Phosphatase Total Protein Albumin Globulin Albumin/Globulin Ratio Influenza Type A Ab Influenza Type B Ab Ur L.pneumophila Ag Blood Type Antibody Screen Crossmatch BBK History Checked Radiology Impressions: Radiology Impressions Duplex Scan Lower Extremity Artery 07/16/18 09:16 IMPRESSION: 1. No sonographic evidence for pseudoaneurysm or AV fistula in the right groin. 2. Large hematoma in the right groin and upper thigh Critical Care Progress Note - Nutrition Nutrition: Nutrition Category Date Time Status Dysphagia/Modified Consistency Diet [DIET] Diets 07/16/18 Breakfast Ordered Attending/Attestation - Attestation I have personally seen and examined this patient.: Yes I have fully participated in the care of the patient.: Yes I have reviewed all pertinent clinical information: Yes Notes (Text): 07/17/18 11:00 The patient was seen and examined at the bedside. Patient care was discussed with resident Medical records, lab studies were reviewed and management issues were discussed and formulated. Agree with above treatment plans as outlined in 's note with addition of the following: Acute on chronic respiratory failure \ Hypoxemia \ PNA \ COPD \ Acute diastolic CHF \ Afib with RVR \ Groin Hematoma \ Blood loss anemia \ Pulmonary HTN -hemodynamic monitoring to maintain MAP>65 -s\p RCA stenting ; continue ASA, Plavix as per cardiology team who are following -o2 supplementation to maintain Spo2>90 Pao2>60; comfortable on NC -steroids taper and duoneb PRN -continue abx and f\u cultures -f\u Bun\Cr and U\o; diuresis with lasix -PO diet and aspiration precautions -LE pulse checks -surgical team f\u -monitor serial H\H and size of hematoma -DVT prophylaxis CCM time 30min
[2018-07-17 07:25] LABS: ALB/GLOB RATIO 1.2 (1.1-1.8); ALBUMIN 2.9 g/dL (3.0-4.8); ALT/SGPT 40 U/L (7-56); AST/SGOT 32 U/L (14-36); BILIRUBIN,DIRECT 0.4 mg/dL (0.0-0.4); BLOOD UREA NITROGEN 39 mg/dL (7-21); CALCIUM 8.5 mg/dL (8.4-10.5); GFR NON-AFRICAN AMERICAN 53
[2018-07-17] MEDS: Arformoterol 15 mcg/2 ml Inh Sol IH SCH ×2 (07:37→19:54)
--- NOTE | 2018-07-17 07:42 | CP.PCM.PN ---
<Joshua Perez - Last Filed: 07/19/18 18:17> Subjective - Date & Time of Evaluation Date of Evaluation: 07/17/18 Time of Evaluation: 07:40 - Subjective Subjective: Progress note- Dr. Membreno Patient seen and examined at bedside. current s/p transfusion 4uPRBC recent Hgb stable at 10.4. Noticable bullae from skin and pressure changes of RLE. Currently awake and alert, NAD, saturating 97% on 2L NC. Low tachycardia throug hout night into this AM between 90-110. Denies nasuea, vomiting, however poor appetite on regular diet. [place] in place, making adequate urine 1600cc/24hrs. US yesterday showed no active bleeding. HSQ on hold. On Vanc, doxy and aztreonam Objective - Vital Signs/Intake and Output Vital Signs (last 24 hours): Temp Pulse Resp BP Pulse Ox 98.6 F 109 H 14 111/46 L 77 L 07/17/18 06:20 07/17/18 06:20 07/17/18 06:20 07/17/18 06:00 07/17/18 06:20 Intake and Output: 07/17/18 07/17/18 06:59 18:59 Intake Total 375 Balance 375 - Medications Medications: Current Medications Acetaminophen (Tylenol 325mg Tab) 650 mg PO Q6 PRN PRN Reason: TEMP>=99.5F Acetaminophen (Tylenol 650 Mg Supp) 650 mg RC Q6H PRN PRN Reason: TEMP>=99.5F Acetylcysteine (Acetylcysteine 20%) 4 ml IH [id number] [facility] Last Admin: 07/16/18 20:26 Dose: 4 ml Arformoterol Tartrate (Brovana) 15 mcg IH [id number] [facility] Last Admin: 07/16/18 20:26 Dose: 15 mcg Ascorbic Acid (Vitamin C 500 Mg Tab) 500 mg PO BID [facility] Last Admin: 07/16/18 18:10 Dose: 500 mg Aspirin (Ecotrin) 81 mg PO DAILY [facility] Last Admin: 07/16/18 09:25 Dose: 81 mg Atorvastatin Calcium (Lipitor) 40 mg PO DIN [facility] Last Admin: 07/16/18 18:07 Dose: 40 mg Clopidogrel Bisulfate (Plavix) 75 mg PO DAILY [facility] Last Admin: 07/16/18 09:25 Dose: 75 mg Diltiazem HCl (Cardizem) 30 mg PO Q6 [facility] Last Admin: 07/16/18 09:20 Dose: Not Given Docusate Sodium (Colace) 100 mg PO TID [facility] Last Admin: 07/16/18 18:06 Dose: 100 mg Escitalopram Oxalate (Lexapro) 5 mg PO HS [facility] Last Admin: 07/16/18 21:59 Dose: 5 mg Famotidine (Pepcid) 20 mg PO 1000,2200 [facility] Last Admin: 07/16/18 21:59 Dose: 20 mg Furosemide (Lasix) 20 mg IVP Q12 [facility] Last Admin: 07/16/18 21:59 Dose: 20 mg Heparin Sodium (Porcine) (Heparin) 5,000 units SC Q8H [facility]; Protocol Last Admin: 07/15/18 13:42 Dose: 5,000 units Aztreonam (Azactam 1 Gm) 100 mls @ 100 mls/hr IVPB Q8 [facility]; Protocol Stop: 07/23/18 06:59 Last Admin: 07/17/18 05:39 Dose: 100 mls/hr Doxycycline Hyclate 100 mg/ (Sodium Chloride) 100 mls @ 100 mls/hr IVPB Q12 [facility]; Protocol Last Admin: 07/16/18 21:58 Dose: 100 mls/hr Vancomycin HCl (Vancomycin 1gm) 1 gm in 250 mls @ 167 mls/hr IVPB Q12H [facility]; Protocol Last Admin: 07/17/18 00:00 Dose: 167 mls/hr Levalbuterol HCl (Xopenex) 0.63 mg IH [id number] [facility] Last Admin: 07/16/18 20:26 Dose: 0.63 mg Midodrine (Proamatine) 5 mg PO TID [facility] Last Admin: 07/16/18 18:07 Dose: 5 mg Montelukast Sodium (Singulair) 10 mg PO HS [facility] Last Admin: 07/16/18 21:59 Dose: 10 mg Morphine Sulfate (Morphine) 2 mg IVP Q4H PRN PRN Reason: Pain, severe (8-10) Last Admin: 07/17/18 06:45 Dose: 2 mg Multivitamins/Vitamin C (Multi-Delyn Liquid) 15 ml PO 0800 [facility] Last Admin: 07/16/18 09:26 Dose: 15 ml Mupirocin (Bactroban Ointment) 0 gm NS BID [facility] Stop: 07/19/18 10:01 Last Admin: 07/16/18 18:06 Dose: 1 applic Ambrisentan [ Letairis] 5 Mg ( Home Med) 5 mg PO DAILY [facility] Last Admin: 07/16/18 18:02 Dose: Not Given Ondansetron HCl (Zofran Inj) 4 mg IVP Q4H PRN PRN Reason: Nausea/Vomiting Prednisone (Prednisone Tab) 40 mg PO DAILY [facility] Last Admin: 07/16/18 09:25 Dose: 40 mg Sildenafil Citrate (Revatio) 20 mg PO TID [facility] Last Admin: 07/16/18 18:07 Dose: 20 mg - Labs Labs: 07/17/18 05:20 07/17/18 06:18 PT 12.4 SECONDS (9.4-12.5) 07/16/18 08:15 INR 1.08 07/16/18 08:15 APTT 27.5 Seconds (25.1-36.5) 07/16/18 08:15 - Constitutional Appears: Non-toxic, No Acute Distress - Head Exam Head Exam: ATRAUMATIC - Eye Exam Eye Exam: EOMI. absent: Scleral icterus - ENT Exam ENT Exam: Mucous Membranes Moist - Respiratory Exam Respiratory Exam: NORMAL BREATHING PATTERN. absent: Accessory Muscle Use, Respiratory Distress Additional comments: on 2L NC - Cardiovascular Exam Cardiovascular Exam: Tachycardia, REGULAR RHYTHM, +S1, +S2. absent: Bradycardia - GI/Abdominal Exam GI & Abdominal Exam: Soft. absent: Distended, Firm, Guarding, Tenderness, Hyperactive Bowel Sounds Additional comments: + chaduhary sign eccymosis around groin Hematoma size stable on LLE; color improving. Noticable bullae over skin - Extremities Exam Extremities Exam: absent: Calf Tenderness Additional comments: see ABD PE palpable popliteal pulses Negative Parrish-turners cull sign - Neurological Exam Neurological Exam: Alert, Awake - Psychiatric Exam Psychiatric exam: Normal Affect - Skin Skin Exam: Warm Assessment and Plan - Assessment and Plan (Free Text) Assessment: 82F s/p cardiac cath now w/ RLE thigh hematoma s/p 4uPRBC Hgb current stable Plan: - continue warm compresses to the affected area - trend H/H - transfuse PRN - will continue to monitor site, if skin changes continue may consider drainage of hematoma - continued care per Critical Care [facility] - further recs per Dr. Haseeb Perez PGY2 <Mason Membreno - Last Filed: 07/19/18 23:54> Objective - Vital Signs/Intake and Output Vital Signs (last 24 hours): Temp Pulse Resp BP Pulse Ox 98.7 F 85 14 140/73 95 07/19/18 16:00 07/19/18 23:10 07/19/18 18:00 07/19/18 23:14 07/19/18 17:20 Intake and Output: 07/19/18 07/20/18 18:59 06:59 Intake Total 1130 Output Total 300 Balance 830 - Medications Medications: Current Medications Acetaminophen (Tylenol 325mg Tab) 650 mg PO Q6 PRN PRN Reason: TEMP>=99.5F Acetaminophen (Tylenol 650 Mg Supp) 650 mg RC Q6H PRN PRN Reason: TEMP>=99.5F Acetylcysteine (Acetylcysteine 20%) 4 ml IH [id number] [facility] Last Admin: 07/19/18 20:33 Dose: 4 ml Arformoterol Tartrate (Brovana) 15 mcg IH [id number] [facility] Last Admin: 07/19/18 20:33 Dose: 15 mcg Ascorbic Acid (Vitamin C 500 Mg Tab) 500 mg PO BID [facility] Last Admin: 07/19/18 17:10 Dose: 500 mg Atorvastatin Calcium (Lipitor) 40 mg PO DIN [facility] Last Admin: 07/19/18 17:11 Dose: 40 mg Clopidogrel Bisulfate (Plavix) 75 mg PO DAILY [facility] Last Admin: 07/19/18 09:19 Dose: 75 mg Diltiazem HCl (Cardizem) 60 mg PO Q8 [facility] Last Admin: 07/19/18 23:10 Dose: 60 mg Docusate Sodium (Colace) 100 mg PO TID [facility] Last Admin: 07/19/18 17:11 Dose: 100 mg Escitalopram Oxalate (Lexapro) 5 mg PO HS [facility] Last Admin: 07/19/18 23:21 Dose: 5 mg Famotidine (Pepcid) 20 mg PO 1000,2200 [facility] Last Admin: 07/19/18 23:10 Dose: 20 mg Furosemide (Lasix) 20 mg IVP Q12 [facility] Last Admin: 07/19/18 23:14 Dose: 20 mg Heparin Sodium (Porcine) (Heparin) 5,000 units SC Q8H [facility]; Protocol Last Admin: 07/15/18 13:42 Dose: 5,000 units Aztreonam (Azactam 1 Gm) 100 mls @ 100 mls/hr IVPB Q8 [facility]; Protocol Stop: 07/23/18 09:46 Last Admin: 07/19/18 23:20 Dose: 100 mls/hr Doxycycline Hyclate 100 mg/ (Sodium Chloride) 100 mls @ 100 mls/hr IVPB Q12 [facility]; Protocol Last Admin: 07/19/18 23:09 Dose: 100 mls/hr Vancomycin HCl (Vancomycin 1gm) 1 gm in 250 mls @ 167 mls/hr IVPB Q12H [facility]; Protocol Last Admin: 07/19/18 13:17 Dose: 167 mls/hr Levalbuterol HCl (Xopenex) 0.63 mg IH [id number] [facility] Last Admin: 07/19/18 20:34 Dose: 0.63 mg Midodrine (Proamatine) 5 mg PO TID [facility] Last Admin: 07/19/18 17:11 Dose: 5 mg Montelukast Sodium (Singulair) 10 mg PO HS [facility] Last Admin: 07/19/18 23:09 Dose: 10 mg Morphine Sulfate (Morphine) 1 mg IVP Q6H PRN PRN Reason: Pain, severe (8-10) Multivitamins/Vitamin C (Multi-Delyn Liquid) 15 ml PO 0800 [facility] Last Admin: 07/19/18 08:41 Dose: 15 ml Ambrisentan [ Letairis] 5 Mg ( Home Med) 5 mg PO DAILY [facility] Last Admin: 07/19/18 11:42 Dose: Not Given Ondansetron HCl (Zofran Inj) 4 mg IVP Q4H PRN PRN Reason: Nausea/Vomiting Oseltamivir Phosphate (Tamiflu Cap) 75 mg PO BID [facility]; Protocol Stop: 07/22/18 11:04 Last Admin: 07/19/18 17:19 Dose: 75 mg Prednisone (Prednisone Tab) 40 mg PO DAILY [facility] Last Admin: 07/19/18 09:18 Dose: 40 mg Sildenafil Citrate (Revatio) 20 mg PO TID [facility] Last Admin: 07/19/18 17:11 Dose: 20 mg Silver Sulfadiazine (Silvadene 1% 25 Gm) 0 gm TP BID [facility] Last Admin: 07/19/18 17:11 Dose: 25 gm - Labs Labs: 07/19/18 06:35 07/19/18 06:35 PT 12.4 SECONDS (9.4-12.5) 07/16/18 08:15 INR 1.08 07/16/18 08:15 APTT 27.5 Seconds (25.1-36.5) 07/16/18 08:15 Assessment and Plan - Assessment and Plan (Free Text) Plan: Patient was seen, examined and evaluated by me. I agree with resident's assessment and plan.
[2018-07-17] MEDS: Sildenafil 20 MG TAB PO SCH ×3 (09:02→18:13)
[2018-07-17] MEDS: Multi Vitamins 15 mL UD Oral Solution PO SCH (09:02)
[2018-07-17 10:47] LABS: EOS % 0.1 % (1.5-5.0); GRAN # 7.45 (1.4-6.5); GRAN % 82.4 % (50.0-68.0); HEMOGLOBIN 9.8 g/dL (12.0-16.0); MEAN CELL VOLUME 95.4 fl (80.0-105.0); MEAN CORPUSCULAR HEMOGLOBIN 30.1 pg (25.0-35.0); MEAN CORPUSCULAR HGB CONC 31.5 g/dl (31.0-37.0); MEAN PLATELET VOLUME 10.4 fl (7.0-11.0); MONO # 0.6 (0.1-0.6); MONO % 6.5 % (1.0-6.0); RBC 3.26 10^6/uL (3.5-6.1); RED CELL DISTRIBUTION WIDTH 15.9 % (11.5-14.5)
[2018-07-17] MEDS: AMBRISENTAN 5 MG PO SCH (10:49)
[2018-07-17] MEDS: Mupirocin 2% Ointment 15 GM TUBE NS SCH ×2 (10:49→18:14)
--- NOTE | 2018-07-17 13:09 | CP.PCM.PN ---
Subjective - Date & Time of Evaluation Date of Evaluation: 07/17/18 Time of Evaluation: 10:45 - Subjective Subjective: Still with some shortness of breath but not in distress, no fevers. Objective - Vital Signs/Intake and Output Vital Signs (last 24 hours): Temp Pulse Resp BP Pulse Ox 98.6 F 109 H 14 109/50 L 77 L 07/17/18 06:20 07/17/18 06:20 07/17/18 06:20 07/17/18 09:05 07/17/18 06:20 Intake and Output: 07/17/18 07/17/18 06:59 18:59 Intake Total 1215 Output Total 900 Balance 315 - Medications Medications: Current Medications Acetaminophen (Tylenol 325mg Tab) 650 mg PO Q6 PRN PRN Reason: TEMP>=99.5F Acetaminophen (Tylenol 650 Mg Supp) 650 mg RC Q6H PRN PRN Reason: TEMP>=99.5F Acetylcysteine (Acetylcysteine 20%) 4 ml IH [id number] [facility] Last Admin: 07/17/18 07:38 Dose: 4 ml Arformoterol Tartrate (Brovana) 15 mcg IH [id number] [facility] Last Admin: 07/17/18 07:37 Dose: 15 mcg Ascorbic Acid (Vitamin C 500 Mg Tab) 500 mg PO BID [facility] Last Admin: 07/17/18 09:02 Dose: 500 mg Atorvastatin Calcium (Lipitor) 40 mg PO DIN [facility] Last Admin: 07/16/18 18:07 Dose: 40 mg Clopidogrel Bisulfate (Plavix) 75 mg PO DAILY [facility] Last Admin: 07/17/18 09:02 Dose: 75 mg Diltiazem HCl (Cardizem) 30 mg PO Q6 [facility] Last Admin: 07/16/18 09:20 Dose: Not Given Docusate Sodium (Colace) 100 mg PO TID [facility] Last Admin: 07/17/18 09:01 Dose: 100 mg Escitalopram Oxalate (Lexapro) 5 mg PO HS [facility] Last Admin: 07/16/18 21:59 Dose: 5 mg Famotidine (Pepcid) 20 mg PO 1000,2200 [facility] Last Admin: 07/17/18 09:02 Dose: 20 mg Furosemide (Lasix) 20 mg IVP Q12 [facility] Last Admin: 07/17/18 09:05 Dose: 20 mg Heparin Sodium (Porcine) (Heparin) 5,000 units SC Q8H [facility]; Protocol Last Admin: 07/15/18 13:42 Dose: 5,000 units Aztreonam (Azactam 1 Gm) 100 mls @ 100 mls/hr IVPB Q8 [facility]; Protocol Stop: 07/23/18 09:46 Last Admin: 07/17/18 05:39 Dose: 100 mls/hr Doxycycline Hyclate 100 mg/ (Sodium Chloride) 100 mls @ 100 mls/hr IVPB Q12 [facility]; Protocol Last Admin: 07/17/18 09:02 Dose: 100 mls/hr Levalbuterol HCl (Xopenex) 0.63 mg IH [id number] [facility] Last Admin: 07/17/18 07:37 Dose: 0.63 mg Midodrine (Proamatine) 5 mg PO TID [facility] Last Admin: 07/17/18 09:02 Dose: 5 mg Montelukast Sodium (Singulair) 10 mg PO HS [facility] Last Admin: 07/16/18 21:59 Dose: 10 mg Morphine Sulfate (Morphine) 1 mg IVP Q6H PRN PRN Reason: Pain, severe (8-10) Multivitamins/Vitamin C (Multi-Delyn Liquid) 15 ml PO 0800 [facility] Last Admin: 07/17/18 09:02 Dose: 15 ml Mupirocin (Bactroban Ointment) 0 gm NS BID [facility] Stop: 07/19/18 10:01 Last Admin: 07/17/18 10:49 Dose: 2 applic Ambrisentan [ Letairis] 5 Mg ( Home Med) 5 mg PO DAILY [facility] Last Admin: 07/17/18 10:49 Dose: Not Given Ondansetron HCl (Zofran Inj) 4 mg IVP Q4H PRN PRN Reason: Nausea/Vomiting Oseltamivir Phosphate (Tamiflu Cap) 75 mg PO BID [facility]; Protocol Stop: 07/22/18 11:04 Prednisone (Prednisone Tab) 40 mg PO DAILY [facility] Last Admin: 07/17/18 09:02 Dose: 40 mg Sildenafil Citrate (Revatio) 20 mg PO TID [facility] Last Admin: 07/17/18 09:02 Dose: 20 mg - Labs Labs: 07/17/18 10:43 07/17/18 06:18 PT 12.4 SECONDS (9.4-12.5) 07/16/18 08:15 INR 1.08 07/16/18 08:15 APTT 27.5 Seconds (25.1-36.5) 07/16/18 08:15 - Constitutional Appears: Chronically Ill - Head Exam Head Exam: NORMAL INSPECTION - Neck Exam Neck Exam: absent: Meningismus - Respiratory Exam Respiratory Exam: Decreased Breath Sounds - Cardiovascular Exam Cardiovascular Exam: +S1, +S2 - GI/Abdominal Exam GI & Abdominal Exam: Soft. absent: Tenderness Assessment and Plan - Assessment and Plan (Free Text) Plan: Assessment consider bilateral lower lobe HCAP in this patient presenting acute myocardial infarction S/P cardiac cath positive influenza A infection, either previous infection or response to influenza vaccination right groin hematoma after cardiac cath history of right leg cellulitis with Pseudomonas in this patient with probable chronic venous stasis, S/P treatment with antibiotics COPD diastolic CHF pulmonary HTN Plan continue Vancomycin, Aztreonam and Doxycycline day 2 pending final blood, sputum cx results, PCT Influenza antibody titers are not used for the diagnosis of acute Influenza infection will continue to monitor clinically follow up further plans for the right groin hematoma follow up further recommendations of Cardiology
--- NOTE | 2018-07-17 14:52 | CP.PCM.APN ---
Subjective - Date & Time of Evaluation Date of Evaluation: 07/17/18 Time of Evaluation: 11:45 - Subjective Subjective: pt seen and examined at bedside asleep in NAD Objective - Vital Signs/Intake and Output Vital Signs (last 24 hours): Temp Pulse Resp BP Pulse Ox 97.8 F 105 H 14 93/52 L 100 07/17/18 12:00 07/17/18 14:20 07/17/18 14:20 07/17/18 14:00 07/17/18 14:20 Intake and Output: 07/17/18 07/17/18 06:59 18:59 Intake Total 1215 Output Total 900 Balance 315 - Medications Medications: Current Medications Acetaminophen (Tylenol 325mg Tab) 650 mg PO Q6 PRN PRN Reason: TEMP>=99.5F Acetaminophen (Tylenol 650 Mg Supp) 650 mg RC Q6H PRN PRN Reason: TEMP>=99.5F Acetylcysteine (Acetylcysteine 20%) 4 ml IH [id number] [facility] Last Admin: 07/17/18 13:14 Dose: 4 ml Arformoterol Tartrate (Brovana) 15 mcg IH [id number] [facility] Last Admin: 07/17/18 07:37 Dose: 15 mcg Ascorbic Acid (Vitamin C 500 Mg Tab) 500 mg PO BID [facility] Last Admin: 07/17/18 09:02 Dose: 500 mg Atorvastatin Calcium (Lipitor) 40 mg PO DIN [facility] Last Admin: 07/16/18 18:07 Dose: 40 mg Clopidogrel Bisulfate (Plavix) 75 mg PO DAILY [facility] Last Admin: 07/17/18 09:02 Dose: 75 mg Diltiazem HCl (Cardizem) 30 mg PO Q6 [facility] Last Admin: 07/16/18 09:20 Dose: Not Given Docusate Sodium (Colace) 100 mg PO TID [facility] Last Admin: 07/17/18 09:01 Dose: 100 mg Escitalopram Oxalate (Lexapro) 5 mg PO HS [facility] Last Admin: 07/16/18 21:59 Dose: 5 mg Famotidine (Pepcid) 20 mg PO 1000,2200 [facility] Last Admin: 07/17/18 09:02 Dose: 20 mg Furosemide (Lasix) 20 mg IVP Q12 [facility] Last Admin: 07/17/18 09:05 Dose: 20 mg Heparin Sodium (Porcine) (Heparin) 5,000 units SC Q8H [facility]; Protocol Last Admin: 07/15/18 13:42 Dose: 5,000 units Aztreonam (Azactam 1 Gm) 100 mls @ 100 mls/hr IVPB Q8 [facility]; Protocol Stop: 07/23/18 09:46 Last Admin: 07/17/18 05:39 Dose: 100 mls/hr Doxycycline Hyclate 100 mg/ (Sodium Chloride) 100 mls @ 100 mls/hr IVPB Q12 [facility]; Protocol Last Admin: 07/17/18 09:02 Dose: 100 mls/hr Levalbuterol HCl (Xopenex) 0.63 mg IH [id number] [facility] Last Admin: 07/17/18 13:14 Dose: 0.63 mg Midodrine (Proamatine) 5 mg PO TID [facility] Last Admin: 07/17/18 09:02 Dose: 5 mg Montelukast Sodium (Singulair) 10 mg PO HS [facility] Last Admin: 07/16/18 21:59 Dose: 10 mg Morphine Sulfate (Morphine) 1 mg IVP Q6H PRN PRN Reason: Pain, severe (8-10) Multivitamins/Vitamin C (Multi-Delyn Liquid) 15 ml PO 0800 [facility] Last Admin: 07/17/18 09:02 Dose: 15 ml Mupirocin (Bactroban Ointment) 0 gm NS BID [facility] Stop: 07/19/18 10:01 Last Admin: 07/17/18 10:49 Dose: 2 applic Ambrisentan [ Letairis] 5 Mg ( Home Med) 5 mg PO DAILY [facility] Last Admin: 07/17/18 10:49 Dose: Not Given Ondansetron HCl (Zofran Inj) 4 mg IVP Q4H PRN PRN Reason: Nausea/Vomiting Oseltamivir Phosphate (Tamiflu Cap) 75 mg PO BID [facility]; Protocol Stop: 07/22/18 11:04 Prednisone (Prednisone Tab) 40 mg PO DAILY [facility] Last Admin: 07/17/18 09:02 Dose: 40 mg Sildenafil Citrate (Revatio) 20 mg PO TID [facility] Last Admin: 07/17/18 09:02 Dose: 20 mg - Labs Labs: 07/17/18 10:43 07/17/18 06:18 PT 12.4 SECONDS (9.4-12.5) 07/16/18 08:15 INR 1.08 07/16/18 08:15 APTT 27.5 Seconds (25.1-36.5) 07/16/18 08:15 - Constitutional Appears: No Acute Distress - Cardiovascular Exam Cardiovascular Exam: +S1, +S2 - Extremities Exam Additional comments: large right groin hematoma present Assessment and Plan - Assessment and Plan (Free Text) Plan: ITS Impressions Chest X-Ray 07/10/18 15:38 IMPRESSION: Cardiomegaly. Hypoinflation. Small bilateral pleural effusions and associated consolidations. Pulmonary venous congestion. Extremity Ultrasound 07/10/18 18:16 IMPRESSION: No sonographic evidence for deep venous thrombosis in the visualized segments of both lower extremities. Limited study. Extremity Ultrasound 07/13/18 11:39 IMPRESSION: 1. No sonographic evidence for deep venous thrombosis in the visualized segments of both upper strategies. Lower Extremity CT 07/15/18 15:59 IMPRESSION: A 19.6 cm mixed hematoma is appreciated within the deep and superficial subcutaneous fat of the anteromedial right thigh as discussed above originating at the level of the mid right inguinal region extending inferior to the mid thigh level. Incidental potential anasarca in both thighs as imaged. Mild pelvic ascites noted incidentally. Concordant preliminary report from [facility], 07/15/2018 17:29 p.m.. Chest/Abdomen/Pelvis CT 07/15/18 16:39 IMPRESSION: Bilateral pneumonia and large pleural effusions. Large complex fluid collection in the right groin consistent with hematoma. Diffuse subcutaneous edema consistent with anasarca. Duplex Scan Lower Extremity Artery 07/16/18 09:16 IMPRESSION: 1. No sonographic evidence for pseudoaneurysm or AV fistula in the right groin. 2. Large hematoma in the right groin and upper thigh 82 yr old white female with pmh sig for copd, severe pul htn, diastolic chf, cellulitis admitted with cp and palps transferred to ICu on 07/13 for closer mgmt of acute hypoxic episode and AMS pt is s/p cath ith ptca to RCA stenosis then developed large righ tgroin hematoma 07/16 surgical consult Arterial doppler with no pseudoaneurysm but large hematoma ct abd pelvis rev'd #acute hypoxia /respiratory acidosis /hypercapnic resp failure continued ICU monitoring pt weaned off high flow o2 to nC , #severe pul htn s/p left and right heart cath Revatio regimen 20TID RA mean pressure per cath report 18mmHg noted #new onset AFIB cardizem 30 q 6 cardiology consultation and recs noted #Right sided CHF /diastolic chf IV lasix 20 q12 discuss patient plan with pmd resident pt weaned off high flow, now on 2l o2 pt with large hematoma s/p cath that many need intervention ?drain with surgical team pt not ready for dc to [facility] discuss with roberto Downey
--- NOTE | 2018-07-17 15:12 | PN ---
DATE: 07/17/2018 SUBJECTIVE: The patient is more tired today. No shortness of breath. No chest pain. PHYSICAL EXAMINATION: VITAL SIGNS: Blood pressure is 100/50, heart rate is 97, normal sinus rhythm. NECK: Negative JVD. LUNGS: Decreased breath sounds. HEART: Reveal S1, S2. EXTREMITIES: Without edema. LABORATORY DATA: Hemoglobin is 9.8, which is essentially unchanged. BUN is 39, creatinine is 1.0, the platelet count is 75,000. IMPRESSION: 1. Hematoma on the right groin site. 2. Severe chronic obstructive pulmonary disease. 3. Severe pulmonary hypertension. 4. Status post percutaneous transluminal coronary angioplasty and stent of an right coronary artery. 5. Anemia. 6. Decrease in platelet count. Given these findings, we will need to keep an eye on the platelet count. Her right groin site, the hematoma is unchanged, but there is some skin breakdowns for hematoma. We will discuss with the family the patient's prognosis. Shaheed Handy MD
--- NOTE | 2018-07-17 15:35 | PN ---
DATE: 07/17/2018 SUBJECTIVE: The patient is seen in ICU bed three. The patient is seen lying in the bed. The patient has been cleaned up by the nurses. The patient has a large right upper thigh inferior aspect and right groin hematoma with skin breakdown with margin marked. Overnight nurse's notes were reviewed. The patient was transfused in the last 12 hours. The patient was transfused total 4 units of packed RBC. PHYSICAL EXAMINATION: VITAL SIGNS: T-max 98.6, atrial fibrillation, heart rate 109, 113, 112, 98. Blood pressure 109/50, 111/46, 95/43, 102/48. Respiration 14, O2 sat is 88, 91, 92. HEENT: Head examination normocephalic, atraumatic. HEENT examination shows pinkish pale conjunctivae. Anicteric sclerae. No oropharyngeal lesion. NECK: No neck rigidity. CHEST: Kyphosis. LUNGS: Examination shows positive rhonchi, creps, crackles. Decreased breath sound at the bases. CARDIOVASCULAR: Examination S1, S2, irregular rhythm. Positive systolic murmur left sternal border, right second intercostal space, left second intercostal space. ABDOMEN: Soft. Positive bowel sounds, positive right groin and right upper thigh hematoma noted which is demarcated. EXTREMITIES: Lower extremity shows positive swelling of the lower extremity. MUSCULOSKELETAL: Examination shows a body mass index of 27. NEUROLOGIC: The patient is alert, awake, responsive. DIAGNOSTICS: 07/17/2018, WBC 9.0, hemoglobin/hematocrit 9.8/31.1, platelet [id number], manual platelets pending. Sodium 140, potassium 4.1, chloride 98, CO2 of 40, BUN 39, creatinine 1, GFR greater than 60, glucose 119, calcium 8.5, phosphorous 2.9, magnesium 1.8. LFTs are normal. Total protein 5.2, albumin 2.8. Influenza type A antibody is positive. The patient was transfused 4 units. The patient had a duplex of the right lower extremity, CT abdomen, pelvis, CT of the lower extremity which was all reviewed. IMPRESSION: 1. Large 10-cm complex right groin, right upper thigh hematoma post cardiac catheterization. 2. Bilateral alveolar infiltrate and bilateral pneumonia with large bilateral pleural effusion. 3. Cardiomegaly. 4. Severely calcified mitral valve with aortic valve calcification. 5. Large bilateral pleural effusion. 6. Right groin post cardiac catheterization, large complex fluid collection and hematoma with extensive subcutaneous edema consistent with anasarca. 7. Degenerative joint disease of the right hip with joint space narrowing, cortical sclerosis, and osteophyte development. 8. Right anteromedial thigh heterogeneous fluid collection extending into the right inguinal region and superficial and deep anteromedial thigh subcutaneous fat 12 x 9 x 6.8 x 19.6 cm, consistent with hematoma with various stages of blood product degradation. 9. Mild pelvic ascites. 10. Atrial fibrillation with rapid ventricular response. 11. Hypotension. 12. Hypoxemia. 13. Acute blood loss anemia secondary to right groin, right inguinal area, right upper thigh hematoma. 14. Thrombocytopenia. 15. Granulocytosis. 16. Status post packed red blood cell transfusion x4. 17. Acute hypoxic hypercarbic respiratory failure with respiratory acidosis, hypercapnia and CO2 narcosis. 18. Metabolic alkalosis. 19. Mild protein malnutrition and hypoalbuminemia. 20. Acute right-sided diastolic congestive heart failure with severe advanced pulmonary hypertension and elevated ProBNP. 21. Questionable prediabetes. 22. Influenza A positive titers. 23. Coronary artery disease with 70% stenosis of the proximal right coronary artery. 24. Diffuse atherosclerosis of the left main coronary artery, left anterior descending diagonal vessels, left circumflex and obtuse marginal vessel. 25. Left ventricular ejection fraction of 60%. 26. Status post successful angioplasty and stent placement of the right coronary artery. 27. Depression. 28. Bilateral multilobar questionable aspiration pneumonia. 29. Questionable delirium. 30. Status post successful angioplasty and stent placement at the proximal right coronary artery. 31. Unstable angina. 32. Large bilateral air space opacities and bibasilar bilateral large air space opacities and right middle lobe air space opacities with bilateral pneumonia and aspiration pneumonitis. 33. Diastolic congestive heart failure. 34. Mitral annular calcification. 35. Extensive atherosclerotic calcific plaques of the aortic arch and descending thoracic aorta and coronary arteries. 36. Nonvisualized gallbladder. 37. Left renal cortical cyst. 38. Diverticulosis of the colon and questionable nonspecific enterocolitis. 39. Abdominopelvic ascites. 40. Ankylosing spondylitis of the thoracic spine. 41. Right upper thigh extensive cellulitis secondary to hematoma. 42. Gait dysfunction. 43. Deconditioning. 44. Atrial fibrillation. PLAN: At this time, the patient is seen by Surgery, Psychiatry, Cardiology. Serial labs have been ordered. The patient is to be continued in ICU. The patient has been ordered serial daily labs. Manual platelets has been ordered. Current consultation, General Surgery, Infectious Disease, Cardiology, Psychiatry. CURRENT MEDICATIONS: Mucomyst nebulizer treatment with Xopenex nebulizer treatment every 6 hours, Letairis 5 mg daily, Azactam 1 g IV every 8 hours, Bactroban cream to the affected area of the nares, Brovana 15 mcg nebulizer every 12 hours, Cardizem 30 mg every 8 hours, Colace 100 mg three times a day, doxycycline 100 mg IV every 12 hours, Ecotrin 81 mg daily, heparin 5000 subcu every 8 hours, Lasix 20 mg IV every 12 hours, Lexapro 5 mg h.s., Lipitor 40 mg daily, morphine 2 mg IV every 4 hours. p.r.n. which will be decreased to 1 mg IV every 6 hours p.r.n.. The patient's morphine will be titrated to avoid excessive sedation and lethargy. The patient is on multivitamin 15 mL daily, Pepcid 20 mg twice a day, Plavix 75 mg daily, prednisone 40 mg daily, midodrine 5 mg three times a day, Revatio 20 mg three times a day, Singulair 10 mg h.s. The patient is started on Tamiflu 75 mg twice a day, Tylenol p.o. suppository every 6 hours p.r.n., vitamin C 500 twice a day, Xopenex nebulizer 0.63 every 6 hours, Zofran 4 mg IV every 4 hours. The patient is on chest PT. The patient has been ordered BiPAP with 18/6, 50% FIO2, rate of 16. At present, the patient's overall prognosis is guarded to poor. Condition critical. The patient will be closely monitored in ICU. The patient will be stabilized, and when the patient is stable enough to be transferred out to the ICU, the patient will be considered for transfer out of ICU. Jonah Loyd MD
[2018-07-18] MEDS: Levalbuterol 0.63 MG/3 ML Inhal Soln UD IH SCH ×4 (01:40→20:26)
[2018-07-18] MEDS: Acetylcysteine 20% Inhal Soln (4ml) IH SCH ×4 (01:40→20:26)
[2018-07-18] MEDS: Aztreonam 1 Gm in NS 100mL 100 ML IVPB SCH ×3 (05:21→21:39)
[2018-07-18 06:07] LABS: GRAN # 7.63 (1.4-6.5); GRAN % 88.2 % (50.0-68.0); HEMOGLOBIN 9.6 g/dL (12.0-16.0); LYMPH # 0.6 (1.2-3.4); LYMPH % 6.8 % (22.0-35.0); MEAN CELL VOLUME 99.1 fl (80.0-105.0); MEAN CORPUSCULAR HEMOGLOBIN 29.8 pg (25.0-35.0); MEAN CORPUSCULAR HGB CONC 30.1 g/dl (31.0-37.0); MEAN PLATELET VOLUME 10.9 fl (7.0-11.0); MONO # 0.4 (0.1-0.6); RBC 3.22 10^6/uL (3.5-6.1); WHITE BLOOD COUNT 8.7 10^3/uL (4.5-11.0)
[2018-07-18 06:57] LABS: ALB/GLOB RATIO 1.2 (1.1-1.8); ALT/SGPT 47 U/L (7-56); AST/SGOT 31 U/L (14-36); BILIRUBIN,DIRECT 0.4 mg/dL (0.0-0.4); BLOOD UREA NITROGEN 41 mg/dL (7-21); CALCIUM 8.5 mg/dL (8.4-10.5); GFR NON-AFRICAN AMERICAN 60
[2018-07-18] MEDS: Arformoterol 15 mcg/2 ml Inh Sol IH SCH ×2 (07:18→20:26)
--- NOTE | 2018-07-18 07:47 | CP.PCM.PN ---
<Katie Goddard - Last Filed: 07/18/18 07:44> Subjective - Date & Time of Evaluation Date of Evaluation: 07/18/18 Time of Evaluation: 07:44 - Subjective Subjective: surgery PT seen and examined. No acute events. REsting. No pressers, not intubated. Denies fever. Hematoma stable. tachycardic. mild hypotension Objective - Vital Signs/Intake and Output Vital Signs (last 24 hours): Temp Pulse Resp BP Pulse Ox 97.8 F 97 H 34 H 91/45 L 100 07/18/18 04:00 07/18/18 07:30 07/18/18 07:30 07/18/18 07:00 07/18/18 07:30 Intake and Output: 07/18/18 07/18/18 06:59 18:59 Intake Total 400 Output Total 500 Balance -100 - Medications Medications: Current Medications Acetaminophen (Tylenol 325mg Tab) 650 mg PO Q6 PRN PRN Reason: TEMP>=99.5F Acetaminophen (Tylenol 650 Mg Supp) 650 mg RC Q6H PRN PRN Reason: TEMP>=99.5F Acetylcysteine (Acetylcysteine 20%) 4 ml IH [id number] [facility] Last Admin: 07/18/18 07:16 Dose: 4 ml Arformoterol Tartrate (Brovana) 15 mcg IH [id number] [facility] Last Admin: 07/18/18 07:18 Dose: 15 mcg Ascorbic Acid (Vitamin C 500 Mg Tab) 500 mg PO BID [facility] Last Admin: 07/17/18 19:18 Dose: Not Given Atorvastatin Calcium (Lipitor) 40 mg PO DIN [facility] Last Admin: 07/17/18 17:35 Dose: 40 mg Clopidogrel Bisulfate (Plavix) 75 mg PO DAILY [facility] Last Admin: 07/17/18 09:02 Dose: 75 mg Diltiazem HCl (Cardizem) 30 mg PO Q6 [facility] Last Admin: 07/16/18 09:20 Dose: Not Given Docusate Sodium (Colace) 100 mg PO TID [facility] Last Admin: 07/17/18 18:13 Dose: 100 mg Escitalopram Oxalate (Lexapro) 5 mg PO HS [facility] Last Admin: 07/17/18 22:14 Dose: 5 mg Famotidine (Pepcid) 20 mg PO 1000,2200 [facility] Last Admin: 07/17/18 22:13 Dose: 20 mg Furosemide (Lasix) 20 mg IVP Q12 [facility] Last Admin: 07/17/18 22:13 Dose: 20 mg Heparin Sodium (Porcine) (Heparin) 5,000 units SC Q8H [facility]; Protocol Last Admin: 07/15/18 13:42 Dose: 5,000 units Aztreonam (Azactam 1 Gm) 100 mls @ 100 mls/hr IVPB Q8 [facility]; Protocol Stop: 07/23/18 09:46 Last Admin: 07/18/18 05:21 Dose: 100 mls/hr Doxycycline Hyclate 100 mg/ (Sodium Chloride) 100 mls @ 100 mls/hr IVPB Q12 [facility]; Protocol Last Admin: 07/17/18 22:14 Dose: 100 mls/hr Levalbuterol HCl (Xopenex) 0.63 mg IH [id number] [facility] Last Admin: 07/18/18 07:16 Dose: 0.63 mg Midodrine (Proamatine) 5 mg PO TID [facility] Last Admin: 07/17/18 18:13 Dose: 5 mg Montelukast Sodium (Singulair) 10 mg PO HS [facility] Last Admin: 07/17/18 22:13 Dose: 10 mg Morphine Sulfate (Morphine) 1 mg IVP Q6H PRN PRN Reason: Pain, severe (8-10) Multivitamins/Vitamin C (Multi-Delyn Liquid) 15 ml PO 0800 [facility] Last Admin: 07/17/18 09:02 Dose: 15 ml Mupirocin (Bactroban Ointment) 0 gm NS BID [facility] Stop: 07/19/18 10:01 Last Admin: 07/17/18 18:14 Dose: 2 applic Ambrisentan [ Letairis] 5 Mg ( Home Med) 5 mg PO DAILY [facility] Last Admin: 07/17/18 10:49 Dose: Not Given Ondansetron HCl (Zofran Inj) 4 mg IVP Q4H PRN PRN Reason: Nausea/Vomiting Oseltamivir Phosphate (Tamiflu Cap) 75 mg PO BID [facility]; Protocol Stop: 07/22/18 11:04 Last Admin: 07/17/18 18:14 Dose: Not Given Prednisone (Prednisone Tab) 40 mg PO DAILY [facility] Last Admin: 07/17/18 09:02 Dose: 40 mg Sildenafil Citrate (Revatio) 20 mg PO TID [facility] Last Admin: 07/17/18 18:13 Dose: 20 mg - Labs Labs: 07/18/18 05:30 07/18/18 05:30 PT 12.4 SECONDS (9.4-12.5) 07/16/18 08:15 INR 1.08 07/16/18 08:15 APTT 27.5 Seconds (25.1-36.5) 07/16/18 08:15 - Constitutional Appears: No Acute Distress - Head Exam Head Exam: ATRAUMATIC, NORMAL INSPECTION, NORMOCEPHALIC - Eye Exam Eye Exam: EOMI, Normal appearance, PERRL Pupil Exam: NORMAL ACCOMODATION, PERRL - ENT Exam ENT Exam: Mucous Membranes Moist - Neck Exam Neck Exam: Normal Inspection - Respiratory Exam Respiratory Exam: Clear to Ausculation Bilateral, NORMAL BREATHING PATTERN - Cardiovascular Exam Cardiovascular Exam: REGULAR RHYTHM - GI/Abdominal Exam GI & Abdominal Exam: Soft. absent: Tenderness - Exam Exam: NORMAL INSPECTION - Extremities Exam Extremities Exam: absent: Normal Inspection Additional comments: R groin area has [id number] hematoma with bullae on the surface. - Back Exam Back Exam: NORMAL INSPECTION - Skin Skin Exam: Dry, Erythema, Intact, Warm. absent: Normal Color Assessment and Plan - Assessment and Plan (Free Text) Assessment: 82F s/p cardiac cath now w/ RLE thigh hematoma s/p 4uPRBC Hgb currently stable Tachycardic 100-120 BP 90/45 Plan: - trend H/H - transfuse PRN - will continue to monitor site, if skin changes continue may consider drainage of hematoma - continued care per Critical Care singleton - further recs per Dr. Membreno <Mason Membreno - Last Filed: 07/19/18 23:57> Objective - Vital Signs/Intake and Output Vital Signs (last 24 hours): Temp Pulse Resp BP Pulse Ox 98.7 F 85 14 140/73 95 07/19/18 16:00 07/19/18 23:10 07/19/18 18:00 07/19/18 23:14 07/19/18 17:20 Intake and Output: 07/19/18 07/20/18 18:59 06:59 Intake Total 1130 Output Total 300 Balance 830 - Medications Medications: Current Medications Acetaminophen (Tylenol 325mg Tab) 650 mg PO Q6 PRN PRN Reason: TEMP>=99.5F Acetaminophen (Tylenol 650 Mg Supp) 650 mg RC Q6H PRN PRN Reason: TEMP>=99.5F Acetylcysteine (Acetylcysteine 20%) 4 ml IH [id number] [facility] Last Admin: 07/19/18 20:33 Dose: 4 ml Arformoterol Tartrate (Brovana) 15 mcg IH [id number] [facility] Last Admin: 07/19/18 20:33 Dose: 15 mcg Ascorbic Acid (Vitamin C 500 Mg Tab) 500 mg PO BID [facility] Last Admin: 07/19/18 17:10 Dose: 500 mg Atorvastatin Calcium (Lipitor) 40 mg PO DIN [facility] Last Admin: 07/19/18 17:11 Dose: 40 mg Clopidogrel Bisulfate (Plavix) 75 mg PO DAILY [facility] Last Admin: 07/19/18 09:19 Dose: 75 mg Diltiazem HCl (Cardizem) 60 mg PO Q8 [facility] Last Admin: 07/19/18 23:10 Dose: 60 mg Docusate Sodium (Colace) 100 mg PO TID [facility] Last Admin: 07/19/18 17:11 Dose: 100 mg Escitalopram Oxalate (Lexapro) 5 mg PO HS [facility] Last Admin: 07/19/18 23:21 Dose: 5 mg Famotidine (Pepcid) 20 mg PO 1000,2200 [facility] Last Admin: 07/19/18 23:10 Dose: 20 mg Furosemide (Lasix) 20 mg IVP Q12 [facility] Last Admin: 07/19/18 23:14 Dose: 20 mg Heparin Sodium (Porcine) (Heparin) 5,000 units SC Q8H [facility]; Protocol Last Admin: 07/15/18 13:42 Dose: 5,000 units Aztreonam (Azactam 1 Gm) 100 mls @ 100 mls/hr IVPB Q8 [facility]; Protocol Stop: 07/23/18 09:46 Last Admin: 07/19/18 23:20 Dose: 100 mls/hr Doxycycline Hyclate 100 mg/ (Sodium Chloride) 100 mls @ 100 mls/hr IVPB Q12 [facility]; Protocol Last Admin: 07/19/18 23:09 Dose: 100 mls/hr Vancomycin HCl (Vancomycin 1gm) 1 gm in 250 mls @ 167 mls/hr IVPB Q12H [facility]; Protocol Last Admin: 07/19/18 13:17 Dose: 167 mls/hr Levalbuterol HCl (Xopenex) 0.63 mg IH [id number] [facility] Last Admin: 07/19/18 20:34 Dose: 0.63 mg Midodrine (Proamatine) 5 mg PO TID [facility] Last Admin: 07/19/18 17:11 Dose: 5 mg Montelukast Sodium (Singulair) 10 mg PO HS [facility] Last Admin: 07/19/18 23:09 Dose: 10 mg Morphine Sulfate (Morphine) 1 mg IVP Q6H PRN PRN Reason: Pain, severe (8-10) Multivitamins/Vitamin C (Multi-Delyn Liquid) 15 ml PO 0800 [facility] Last Admin: 07/19/18 08:41 Dose: 15 ml Ambrisentan [ Letairis] 5 Mg ( Home Med) 5 mg PO DAILY [facility] Last Admin: 07/19/18 11:42 Dose: Not Given Ondansetron HCl (Zofran Inj) 4 mg IVP Q4H PRN PRN Reason: Nausea/Vomiting Oseltamivir Phosphate (Tamiflu Cap) 75 mg PO BID [facility]; Protocol Stop: 07/22/18 11:04 Last Admin: 07/19/18 17:19 Dose: 75 mg Prednisone (Prednisone Tab) 40 mg PO DAILY [facility] Last Admin: 07/19/18 09:18 Dose: 40 mg Sildenafil Citrate (Revatio) 20 mg PO TID [facility] Last Admin: 07/19/18 17:11 Dose: 20 mg Silver Sulfadiazine (Silvadene 1% 25 Gm) 0 gm TP BID [facility] Last Admin: 07/19/18 17:11 Dose: 25 gm - Labs Labs: 07/19/18 06:35 07/19/18 06:35 PT 12.4 SECONDS (9.4-12.5) 07/16/18 08:15 INR 1.08 07/16/18 08:15 APTT 27.5 Seconds (25.1-36.5) 07/16/18 08:15 Assessment and Plan - Assessment and Plan (Free Text) Plan: Patient was seen, examined and evaluated by me. I agree with resident's assessment and plan.
[2018-07-18] MEDS: AMBRISENTAN 5 MG PO SCH (09:39)
[2018-07-18] MEDS: Multi Vitamins 15 mL UD Oral Solution PO SCH (09:49)
[2018-07-18] MEDS: Mupirocin 2% Ointment 15 GM TUBE NS SCH ×2 (09:50→17:34)
[2018-07-18] MEDS: Sildenafil 20 MG TAB PO SCH ×3 (09:51→17:35)
--- NOTE | 2018-07-18 10:14 | PN ---
DATE: 07/18/2018 SUBJECTIVE: The patient is resting comfortably in the bed, O2 via nasal cannula. No respiratory distress this morning. The patient blood pressure is stable. PHYSICAL EXAMINATION: VITAL SIGNS: Temperature is 97, her pulse is 97, respirations are 20 and BP is 97/45. SKIN: Warm and dry. HEENT: Head atraumatic, normocephalic. Eyes reactive to light and nose and throat seemed to be within normal limits. NECK: Supple. No JVD. No thyroid enlargement or lymph nodes. HEART: Regular rate and rhythm. Normal S1, S2. LUNGS: Good breath sounds bilaterally. ABDOMEN: Soft. Decreased bowel sounds. GENITALIA AND RECTAL: Deferred. MUSCULOSKELETAL: No joint deformities. EXTREMITIES: Trace lower extremity edema. NEUROLOGIC: She seemed to be grossly intact. LABORATORY DATA: As far as her laboratories are concerned, the patient's white count is 8.7, hemoglobin is 9.2, hematocrit 31.9 with platelets of 87,000. The patient's sodium is 141, potassium 4.5, chloride 99, CO2 of 41 with a BUN of 41, creatinine of 0.9 and glucose of 129. IMPRESSION: This patient has congestive heart failure with a history of pulmonary hypertension. She presented with myocardial infarction, required cardiac catheterization and developed a hematoma at the catheter entry site in the right thigh. The patient was noted to have thrombocytopenia, anemia and may be a component of pneumonia as well. She has a history of chronic obstructive pulmonary disease and right leg cellulitis. PLAN: As far as my plan, we will monitor her closely hemodynamically and her hemoglobin as well. The patient at this time is getting aztreonam. She is getting acetylcysteine. She is getting Brovana as well as Lasix, Lexapro, Lipitor,morphine p.r.n., Pepcid, Plavix, prednisone, midodrine, Revatio, Singulair, Tamiflu, and Xopenex. We will continue to treat aggressively along with the other consultants and the primary care doctor. Alejo Mejía MD
--- NOTE | 2018-07-18 11:41 | PN ---
Covering for Dr. Loyd. SUBJECTIVE: The patient was seen and examined at bedside in the ICU. No acute events overnight. She remains afebrile, hemodynamically stable and largely clinically unchanged. She continues to report pain at the right groin cardiac catheterization site but denies fevers, chills, rigors, dyspnea, chest pain or palpitations. OBJECTIVE: VITAL SIGNS: Temperature 98.4, pulse 97, blood pressure 91/45, respiratory rate 20, oxygen saturation 100% on 2L NC. GENERAL: Nontoxic elderly woman, appearing her stated age, lying in bed in no apparent distress. HEENT: PERRL, EOMI. No scleral icterus. Mild conjunctival pallor is noted. NECK: No JVD. LUNGS: Decreased breath sounds at the bases with scattered rhonchi and bibasilar crackles. CARDIOVASCULAR: Irregularly irregular. Normal S1, S2. Grade II/ SANDY to LLSB. ABDOMEN: Normoactive bowel sounds. Soft, nontender, nondistended. EXTREMITIES: Large hematoma noted to the right cardiac catheterization site. NEUROLOGIC: Awake, alert and oriented x 3. No focal motor deficits. LABORATORY DATA: WBC 8.7 with 88% neutrophils, hemoglobin 9.6, hematocrit 32, platelets 92. Sodium 141, potassium 4.5, chloride 99, bicarb 41, BUN 41, creatinine 0.9, glucose 129. Blood cultures with no growth to date. ASSESSMENT: The patient is an 82-year-old woman with multiple medical comorbidities who presented for evaluation of angina and underwent cardiac catheterization with successful PCI and stent placement to the RCA lesion whose postprocedure course was complicated by development of right groin hematoma and was transferred to the ICU for continued monitoring and transfusion of 4 units of PRBC's who is demonstrating gradual clinical improvement. PLAN: 1. Hematoma of the right thigh. The patient is s/p transfusion of 4 units of PRBCs and with stable Hb. Input from surgical team appreciated and no plans for acute surgical intervention. Continue with local care. Continue to monitor CBC and transfuse as needed. 2. CAD s/p PCI with stent placement. Input from Dr. Handy noted. Continue Lipitor at 40 mg p.o. daily and Plavix 75 mg p.o. daily. 3. Sepsis, secondary to bilateral healthcare-associated pneumonia. Input from Dr. Thomas noted. The patient remains afebrile and hemodynamically stable and with improving respiratory status. Continue Aztreonam and Doxycycline. 4. Atrial fibrillation, rate controlled. Input from Dr. Handy appreciated. Continue with care as per Dr. Handy. 5. Severe COPD. Continue supplemental oxygen, bronchodilators and inhaled corticosteroids. 6. Severe pulmonary hypertension. Continue Sildenafil 20 mg p.o. t.i.d.. 7. Diastolic congestive heart failure. Continue Lasix 20 mg IV q. 12 hours. 8. Thrombocytopenia. Labs demonstrate stable platelet count. We will continue to monitor. 9. Depression. Continue Lexapro 5 mg p.o. at bedtime. 10. Prophylaxis. Continue with Pepcid for GI prophylaxis and SCDs for DVT prophylaxis. CODE STATUS: DNR/DNI. Parish Fields MD MTDGerardo
[2018-07-18] MEDS ORDERED: Morphine 2 mg/ml ISec IVP PRN (12:00)
--- NOTE | 2018-07-18 13:16 | CP.PCM.PN ---
Subjective - Date & Time of Evaluation Date of Evaluation: 07/18/18 Time of Evaluation: 12:00 - Subjective Subjective: Comfortable in bed but still feels weak, no chest pain, no fevers, still with some discomfort in the right thigh. Objective - Vital Signs/Intake and Output Vital Signs (last 24 hours): Temp Pulse Resp BP Pulse Ox 98.6 F 109 H 14 109/50 L 77 L 07/17/18 06:20 07/17/18 06:20 07/17/18 06:20 07/17/18 09:05 07/17/18 06:20 Intake and Output: 07/17/18 07/17/18 06:59 18:59 Intake Total 1215 Output Total 900 Balance 315 - Medications Medications: Current Medications Acetaminophen (Tylenol 325mg Tab) 650 mg PO Q6 PRN PRN Reason: TEMP>=99.5F Acetaminophen (Tylenol 650 Mg Supp) 650 mg RC Q6H PRN PRN Reason: TEMP>=99.5F Acetylcysteine (Acetylcysteine 20%) 4 ml IH [id number] [facility] Last Admin: 07/17/18 07:38 Dose: 4 ml Arformoterol Tartrate (Brovana) 15 mcg IH [id number] [facility] Last Admin: 07/17/18 07:37 Dose: 15 mcg Ascorbic Acid (Vitamin C 500 Mg Tab) 500 mg PO BID [facility] Last Admin: 07/17/18 09:02 Dose: 500 mg Atorvastatin Calcium (Lipitor) 40 mg PO DIN [facility] Last Admin: 07/16/18 18:07 Dose: 40 mg Clopidogrel Bisulfate (Plavix) 75 mg PO DAILY [facility] Last Admin: 07/17/18 09:02 Dose: 75 mg Diltiazem HCl (Cardizem) 30 mg PO Q6 [facility] Last Admin: 07/16/18 09:20 Dose: Not Given Docusate Sodium (Colace) 100 mg PO TID [facility] Last Admin: 07/17/18 09:01 Dose: 100 mg Escitalopram Oxalate (Lexapro) 5 mg PO HS [facility] Last Admin: 07/16/18 21:59 Dose: 5 mg Famotidine (Pepcid) 20 mg PO 1000,2200 [facility] Last Admin: 07/17/18 09:02 Dose: 20 mg Furosemide (Lasix) 20 mg IVP Q12 [facility] Last Admin: 07/17/18 09:05 Dose: 20 mg Heparin Sodium (Porcine) (Heparin) 5,000 units SC Q8H [facility]; Protocol Last Admin: 07/15/18 13:42 Dose: 5,000 units Aztreonam (Azactam 1 Gm) 100 mls @ 100 mls/hr IVPB Q8 [facility]; Protocol Stop: 07/23/18 09:46 Last Admin: 07/17/18 05:39 Dose: 100 mls/hr Doxycycline Hyclate 100 mg/ (Sodium Chloride) 100 mls @ 100 mls/hr IVPB Q12 [facility]; Protocol Last Admin: 07/17/18 09:02 Dose: 100 mls/hr Levalbuterol HCl (Xopenex) 0.63 mg IH [id number] [facility] Last Admin: 07/17/18 07:37 Dose: 0.63 mg Midodrine (Proamatine) 5 mg PO TID [facility] Last Admin: 07/17/18 09:02 Dose: 5 mg Montelukast Sodium (Singulair) 10 mg PO HS [facility] Last Admin: 07/16/18 21:59 Dose: 10 mg Morphine Sulfate (Morphine) 1 mg IVP Q6H PRN PRN Reason: Pain, severe (8-10) Multivitamins/Vitamin C (Multi-Delyn Liquid) 15 ml PO 0800 [facility] Last Admin: 07/17/18 09:02 Dose: 15 ml Mupirocin (Bactroban Ointment) 0 gm NS BID [facility] Stop: 07/19/18 10:01 Last Admin: 07/17/18 10:49 Dose: 2 applic Ambrisentan [ Letairis] 5 Mg ( Home Med) 5 mg PO DAILY [facility] Last Admin: 07/17/18 10:49 Dose: Not Given Ondansetron HCl (Zofran Inj) 4 mg IVP Q4H PRN PRN Reason: Nausea/Vomiting Oseltamivir Phosphate (Tamiflu Cap) 75 mg PO BID [facility]; Protocol Stop: 07/22/18 11:04 Prednisone (Prednisone Tab) 40 mg PO DAILY [facility] Last Admin: 07/17/18 09:02 Dose: 40 mg Sildenafil Citrate (Revatio) 20 mg PO TID [facility] Last Admin: 07/17/18 09:02 Dose: 20 mg - Labs Labs: 07/17/18 10:43 07/17/18 06:18 PT 12.4 SECONDS (9.4-12.5) 07/16/18 08:15 INR 1.08 07/16/18 08:15 APTT 27.5 Seconds (25.1-36.5) 07/16/18 08:15 - Constitutional Appears: Chronically Ill - Head Exam Head Exam: NORMAL INSPECTION - Neck Exam Neck Exam: absent: Meningismus - Respiratory Exam Respiratory Exam: Decreased Breath Sounds - Cardiovascular Exam Cardiovascular Exam: +S1, +S2 - GI/Abdominal Exam GI & Abdominal Exam: Soft. absent: Tenderness - Extremities Exam Additional comments: right thigh hematoma with bulla formation Assessment and Plan - Assessment and Plan (Free Text) Plan: Assessment consider bilateral lower lobe HCAP in this patient presenting acute myocardial infarction S/P cardiac cath positive influenza A infection, either previous infection or response to influenza vaccination right groin hematoma after cardiac cath history of right leg cellulitis with Pseudomonas in this patient with probable chronic venous stasis, S/P treatment with antibiotics COPD diastolic CHF pulmonary HTN Plan continue Vancomycin, Aztreonam and Doxycycline day 3 pending final blood, sputum cx results, PCT Influenza antibody titers are not used for the diagnosis of acute Influenza infection will continue to monitor clinically follow up further plans for the right groin hematoma follow up further recommendations of Cardiology
[2018-07-18] MEDS: Vancomycin 1gm in NS 250ml 1 GM/250 ML BAG IVPB SCH (15:09)
[2018-07-19] MEDS: Vancomycin 1gm in NS 250ml 1 GM/250 ML BAG IVPB SCH ×2 (01:37→13:17)
[2018-07-19] MEDS: Acetylcysteine 20% Inhal Soln (4ml) IH SCH ×4 (03:00→20:33)
[2018-07-19] MEDS: Levalbuterol 0.63 MG/3 ML Inhal Soln UD IH SCH ×4 (03:00→20:34)
[2018-07-19] MEDS: Aztreonam 1 Gm in NS 100mL 100 ML IVPB SCH ×4 (05:29→23:30)
[2018-07-19 07:17] LABS: EOS % 0.2 % (1.5-5.0); GRAN # 9.54 (1.4-6.5); GRAN % 84.6 % (50.0-68.0); HEMOGLOBIN 9.7 g/dL (12.0-16.0); LYMPH # 1.2 (1.2-3.4); LYMPH % 10.6 % (22.0-35.0); MEAN CORPUSCULAR HEMOGLOBIN 29.8 pg (25.0-35.0); MEAN CORPUSCULAR HGB CONC 29.8 g/dl (31.0-37.0); MEAN PLATELET VOLUME 9.6 fl (7.0-11.0); MONO # 0.5 (0.1-0.6); MONO % 4.6 % (1.0-6.0); RBC 3.25 10^6/uL (3.5-6.1); RED CELL DISTRIBUTION WIDTH 15.7 % (11.5-14.5); WHITE BLOOD COUNT 11.3 10^3/uL (4.5-11.0)
[2018-07-19] MEDS: Arformoterol 15 mcg/2 ml Inh Sol IH SCH ×2 (07:33→20:33)
[2018-07-19 08:05] LABS: ALB/GLOB RATIO 1.3 (1.1-1.8); ALT/SGPT 64 U/L (7-56); AST/SGOT 65 U/L (14-36); BILIRUBIN,DIRECT 0.3 mg/dL (0.0-0.4); BLOOD UREA NITROGEN 42 mg/dL (7-21); CALCIUM 8.7 mg/dL (8.4-10.5); GFR NON-AFRICAN AMERICAN 53
[2018-07-19] MEDS: Multi Vitamins 15 mL UD Oral Solution PO SCH (08:41)
[2018-07-19] MEDS: Sildenafil 20 MG TAB PO SCH ×3 (09:19→17:11)
[2018-07-19] MEDS: Mupirocin 2% Ointment 15 GM TUBE NS SCH (09:20)
--- NOTE | 2018-07-19 09:21 | CP.PCM.PN ---
<Yoan Garcia - Last Filed: 07/19/18 09:21> Subjective - Date & Time of Evaluation Date of Evaluation: 07/19/18 Time of Evaluation: 09:19 - Subjective Subjective: Surgery: Dr. Membreno Pt seen and examined. No acute events overnight. Pt has no complaints. Remains tachycardic. Objective - Vital Signs/Intake and Output Vital Signs (last 24 hours): Temp Pulse Resp BP Pulse Ox 98 F 121 H 21 174/77 H 75 L 07/19/18 00:00 07/19/18 08:41 07/19/18 06:28 07/19/18 08:41 07/19/18 02:49 Intake and Output: 07/19/18 07/19/18 06:59 18:59 Intake Total 500 Output Total 650 Balance -150 - Medications Medications: Current Medications Acetaminophen (Tylenol 325mg Tab) 650 mg PO Q6 PRN PRN Reason: TEMP>=99.5F Acetaminophen (Tylenol 650 Mg Supp) 650 mg RC Q6H PRN PRN Reason: TEMP>=99.5F Acetylcysteine (Acetylcysteine 20%) 4 ml IH [id number] [facility] Last Admin: 07/19/18 07:33 Dose: 4 ml Arformoterol Tartrate (Brovana) 15 mcg IH [id number] [facility] Last Admin: 07/19/18 07:33 Dose: 15 mcg Ascorbic Acid (Vitamin C 500 Mg Tab) 500 mg PO BID [facility] Last Admin: 07/18/18 17:35 Dose: 500 mg Atorvastatin Calcium (Lipitor) 40 mg PO DIN [facility] Last Admin: 07/18/18 17:34 Dose: 40 mg Clopidogrel Bisulfate (Plavix) 75 mg PO DAILY [facility] Last Admin: 07/18/18 09:51 Dose: Not Given Diltiazem HCl (Cardizem) 30 mg PO Q6 [facility] Last Admin: 07/19/18 08:41 Dose: 30 mg Docusate Sodium (Colace) 100 mg PO TID [facility] Last Admin: 07/18/18 17:35 Dose: 100 mg Escitalopram Oxalate (Lexapro) 5 mg PO HS [facility] Last Admin: 07/18/18 21:40 Dose: 5 mg Famotidine (Pepcid) 20 mg PO 1000,2200 [facility] Last Admin: 07/18/18 21:40 Dose: 20 mg Furosemide (Lasix) 20 mg IVP Q12 [facility] Last Admin: 07/18/18 21:40 Dose: 20 mg Heparin Sodium (Porcine) (Heparin) 5,000 units SC Q8H [facility]; Protocol Last Admin: 07/15/18 13:42 Dose: 5,000 units Aztreonam (Azactam 1 Gm) 100 mls @ 100 mls/hr IVPB Q8 [facility]; Protocol Stop: 07/23/18 09:46 Last Admin: 07/19/18 05:29 Dose: 100 mls/hr Doxycycline Hyclate 100 mg/ (Sodium Chloride) 100 mls @ 100 mls/hr IVPB Q12 [facility]; Protocol Last Admin: 07/18/18 21:45 Dose: 100 mls/hr Vancomycin HCl (Vancomycin 1gm) 1 gm in 250 mls @ 167 mls/hr IVPB Q12H [facility]; Protocol Last Admin: 07/19/18 01:37 Dose: 167 mls/hr Levalbuterol HCl (Xopenex) 0.63 mg IH [id number] [facility] Last Admin: 07/19/18 07:33 Dose: 0.63 mg Midodrine (Proamatine) 5 mg PO TID [facility] Last Admin: 07/18/18 17:35 Dose: 5 mg Montelukast Sodium (Singulair) 10 mg PO HS [facility] Last Admin: 07/18/18 21:41 Dose: 10 mg Morphine Sulfate (Morphine) 1 mg IVP Q6H PRN PRN Reason: Pain, severe (8-10) Multivitamins/Vitamin C (Multi-Delyn Liquid) 15 ml PO 0800 [facility] Last Admin: 07/19/18 08:41 Dose: 15 ml Mupirocin (Bactroban Ointment) 0 gm NS BID [facility] Stop: 07/19/18 10:01 Last Admin: 07/18/18 17:34 Dose: 1 applic Ambrisentan [ Letairis] 5 Mg ( Home Med) 5 mg PO DAILY [facility] Last Admin: 07/18/18 09:39 Dose: Not Given Ondansetron HCl (Zofran Inj) 4 mg IVP Q4H PRN PRN Reason: Nausea/Vomiting Oseltamivir Phosphate (Tamiflu Cap) 75 mg PO BID [facility]; Protocol Stop: 07/22/18 11:04 Last Admin: 07/18/18 17:35 Dose: Not Given Prednisone (Prednisone Tab) 40 mg PO DAILY [facility] Last Admin: 07/18/18 09:51 Dose: Not Given Sildenafil Citrate (Revatio) 20 mg PO TID [facility] Last Admin: 07/18/18 17:35 Dose: 20 mg - Labs Labs: 07/19/18 06:35 07/19/18 06:35 PT 12.4 SECONDS (9.4-12.5) 07/16/18 08:15 INR 1.08 07/16/18 08:15 APTT 27.5 Seconds (25.1-36.5) 07/16/18 08:15 - Constitutional Appears: Non-toxic, No Acute Distress - Head Exam Head Exam: ATRAUMATIC, NORMOCEPHALIC - Eye Exam Eye Exam: EOMI - ENT Exam ENT Exam: Mucous Membranes Moist - Respiratory Exam Respiratory Exam: NORMAL BREATHING PATTERN. absent: Accessory Muscle Use, Respiratory Distress - Cardiovascular Exam Cardiovascular Exam: Tachycardia - GI/Abdominal Exam GI & Abdominal Exam: Soft. absent: Tenderness - Extremities Exam Additional comments: R thigh hematoma, overlying blisters ruptured, hematoma is soft, tender, overlying erythema/echymosis - Neurological Exam Neurological Exam: Alert, Awake Assessment and Plan - Assessment and Plan (Free Text) Assessment: 82F s/p cardiac cath now w. R thigh hematoma Plan: -H/H stable, continue to monitor, transfuse PRN, target hgb >7 -Warm compress 20min TID -Pt remains tachycardic, recommend improved rate control, will defer to medicine -will continue to follow, may eventually need drainage of hematoma -d/w attending Zemaitis PGY4 <Mason Membreno - Last Filed: 07/19/18 23:56> Objective - Vital Signs/Intake and Output Vital Signs (last 24 hours): Temp Pulse Resp BP Pulse Ox 98.7 F 85 14 140/73 95 07/19/18 16:00 07/19/18 23:10 07/19/18 18:00 07/19/18 23:14 07/19/18 17:20 Intake and Output: 07/19/18 07/20/18 18:59 06:59 Intake Total 1130 Output Total 300 Balance 830 - Medications Medications: Current Medications Acetaminophen (Tylenol 325mg Tab) 650 mg PO Q6 PRN PRN Reason: TEMP>=99.5F Acetaminophen (Tylenol 650 Mg Supp) 650 mg RC Q6H PRN PRN Reason: TEMP>=99.5F Acetylcysteine (Acetylcysteine 20%) 4 ml IH [id number] [facility] Last Admin: 07/19/18 20:33 Dose: 4 ml Arformoterol Tartrate (Brovana) 15 mcg IH [id number] [facility] Last Admin: 07/19/18 20:33 Dose: 15 mcg Ascorbic Acid (Vitamin C 500 Mg Tab) 500 mg PO BID [facility] Last Admin: 07/19/18 17:10 Dose: 500 mg Atorvastatin Calcium (Lipitor) 40 mg PO DIN [facility] Last Admin: 07/19/18 17:11 Dose: 40 mg Clopidogrel Bisulfate (Plavix) 75 mg PO DAILY [facility] Last Admin: 07/19/18 09:19 Dose: 75 mg Diltiazem HCl (Cardizem) 60 mg PO Q8 [facility] Last Admin: 07/19/18 23:10 Dose: 60 mg Docusate Sodium (Colace) 100 mg PO TID [facility] Last Admin: 07/19/18 17:11 Dose: 100 mg Escitalopram Oxalate (Lexapro) 5 mg PO HS [facility] Last Admin: 07/19/18 23:21 Dose: 5 mg Famotidine (Pepcid) 20 mg PO 1000,2200 [facility] Last Admin: 07/19/18 23:10 Dose: 20 mg Furosemide (Lasix) 20 mg IVP Q12 [facility] Last Admin: 07/19/18 23:14 Dose: 20 mg Heparin Sodium (Porcine) (Heparin) 5,000 units SC Q8H [facility]; Protocol Last Admin: 07/15/18 13:42 Dose: 5,000 units Aztreonam (Azactam 1 Gm) 100 mls @ 100 mls/hr IVPB Q8 [facility]; Protocol Stop: 07/23/18 09:46 Last Admin: 07/19/18 23:20 Dose: 100 mls/hr Doxycycline Hyclate 100 mg/ (Sodium Chloride) 100 mls @ 100 mls/hr IVPB Q12 [facility]; Protocol Last Admin: 07/19/18 23:09 Dose: 100 mls/hr Vancomycin HCl (Vancomycin 1gm) 1 gm in 250 mls @ 167 mls/hr IVPB Q12H [facility]; Protocol Last Admin: 07/19/18 13:17 Dose: 167 mls/hr Levalbuterol HCl (Xopenex) 0.63 mg IH [id number] [facility] Last Admin: 07/19/18 20:34 Dose: 0.63 mg Midodrine (Proamatine) 5 mg PO TID [facility] Last Admin: 07/19/18 17:11 Dose: 5 mg Montelukast Sodium (Singulair) 10 mg PO HS [facility] Last Admin: 07/19/18 23:09 Dose: 10 mg Morphine Sulfate (Morphine) 1 mg IVP Q6H PRN PRN Reason: Pain, severe (8-10) Multivitamins/Vitamin C (Multi-Delyn Liquid) 15 ml PO 0800 [facility] Last Admin: 07/19/18 08:41 Dose: 15 ml Ambrisentan [ Letairis] 5 Mg ( Home Med) 5 mg PO DAILY [facility] Last Admin: 07/19/18 11:42 Dose: Not Given Ondansetron HCl (Zofran Inj) 4 mg IVP Q4H PRN PRN Reason: Nausea/Vomiting Oseltamivir Phosphate (Tamiflu Cap) 75 mg PO BID [facility]; Protocol Stop: 07/22/18 11:04 Last Admin: 07/19/18 17:19 Dose: 75 mg Prednisone (Prednisone Tab) 40 mg PO DAILY [facility] Last Admin: 07/19/18 09:18 Dose: 40 mg Sildenafil Citrate (Revatio) 20 mg PO TID [facility] Last Admin: 07/19/18 17:11 Dose: 20 mg Silver Sulfadiazine (Silvadene 1% 25 Gm) 0 gm TP BID [facility] Last Admin: 07/19/18 17:11 Dose: 25 gm - Labs Labs: 07/19/18 06:35 07/19/18 06:35 PT 12.4 SECONDS (9.4-12.5) 07/16/18 08:15 INR 1.08 07/16/18 08:15 APTT 27.5 Seconds (25.1-36.5) 07/16/18 08:15 Assessment and Plan - Assessment and Plan (Free Text) Plan: Patient was seen, examined and evaluated by me. I agree with resident's assessment and plan.
[2018-07-19] MEDS: AMBRISENTAN 5 MG PO SCH (11:42)
--- NOTE | 2018-07-19 11:51 | PN ---
DATE: 07/19/2018 [employer] ADMINISTRATOR NOTE SUBJECTIVE: The patient is resting comfortably in bed with O2 via nasal cannula. Continues to have some tachycardia, but no chest pain. No obvious respiratory distress and blood pressure is stable. PHYSICAL EXAMINATION: VITAL SIGNS: Her temperature is 98, pulse is 120, respirations are 21 and BP is 165/100. SKIN: Warm and dry. HEENT: Head atraumatic and normocephalic. Eyes reactive to light. Ear, nose and throat seemed to be within normal limits. NECK: Supple. No JVD. No thyroid enlargement or lymph nodes. HEART: Has regular rate and rhythm. Normal S1 and S2, but tachycardic. LUNGS: Reveal decreased breath sounds at the bases. ABDOMEN: Soft and nontender. Normal bowel sounds. GENITALIA: Deferred. RECTAL: Deferred. MUSCULOSKELETAL: No joint deformities. EXTREMITIES: Reveal positive lower extremity edema. NEUROLOGICALLY: The patient seemed to be grossly intact. LABORATORY DATA: Her white count is 11.3, hemoglobin is 9.7, hematocrit 32.5 with platelets of 106,000. Her sodium is 142, potassium 4.2, chloride 98, CO2 of 41 with a BUN of 42 creatinine of 1.0 and glucose of 120. IMPRESSION: This patient has a history of congestive heart failure with pulmonary hypertension. She presented with a myocardial infarction and required cardiac catheterization and developed a hematoma in the right thigh area. The patient has thrombocytopenia, anemia and a component of pneumonia as well. He has a history of chronic obstructive pulmonary disease and right leg cellulitis. PLAN: We will continue to monitor her hemodynamically as well as her hemoglobin and she will continue the aztreonam acetylcysteine, Brovana, Lasix, Lexapro, Lipitor, morphine p.r.n., Pepcid, Plavix, prednisone, midodrine, Revatio, Singulair, Tamiflu and Xopenex. We will continue to treat aggressively along with the other consultants and the primary care doctor. Alejo Mejía MD
--- NOTE | 2018-07-19 11:56 | CP.PCM.PN ---
Subjective - Date & Time of Evaluation Date of Evaluation: 07/19/18 Time of Evaluation: 11:30 - Subjective Subjective: Comfortable in bed, no fevers, still with pain in the right thigh. Objective - Vital Signs/Intake and Output Vital Signs (last 24 hours): Temp Pulse Resp BP Pulse Ox 97.8 F 98 H 17 106/56 L 83 L 07/18/18 04:00 07/18/18 11:28 07/18/18 11:28 07/18/18 11:00 07/18/18 11:10 Intake and Output: 07/18/18 07/18/18 06:59 18:59 Intake Total 400 Output Total 500 Balance -100 - Medications Medications: Current Medications Acetaminophen (Tylenol 325mg Tab) 650 mg PO Q6 PRN PRN Reason: TEMP>=99.5F Acetaminophen (Tylenol 650 Mg Supp) 650 mg RC Q6H PRN PRN Reason: TEMP>=99.5F Acetylcysteine (Acetylcysteine 20%) 4 ml IH [id number] [facility] Last Admin: 07/18/18 07:16 Dose: 4 ml Arformoterol Tartrate (Brovana) 15 mcg IH [id number] [facility] Last Admin: 07/18/18 07:18 Dose: 15 mcg Ascorbic Acid (Vitamin C 500 Mg Tab) 500 mg PO BID [facility] Last Admin: 07/18/18 09:51 Dose: Not Given Atorvastatin Calcium (Lipitor) 40 mg PO DIN [facility] Last Admin: 07/17/18 17:35 Dose: 40 mg Clopidogrel Bisulfate (Plavix) 75 mg PO DAILY [facility] Last Admin: 07/18/18 09:51 Dose: Not Given Diltiazem HCl (Cardizem) 30 mg PO Q6 [facility] Last Admin: 07/16/18 09:20 Dose: Not Given Docusate Sodium (Colace) 100 mg PO TID [facility] Last Admin: 07/18/18 09:50 Dose: Not Given Escitalopram Oxalate (Lexapro) 5 mg PO HS [facility] Last Admin: 07/17/18 22:14 Dose: 5 mg Famotidine (Pepcid) 20 mg PO 1000,2200 [facility] Last Admin: 07/18/18 09:50 Dose: Not Given Furosemide (Lasix) 20 mg IVP Q12 [facility] Last Admin: 07/18/18 09:50 Dose: 20 mg Heparin Sodium (Porcine) (Heparin) 5,000 units SC Q8H [facility]; Protocol Last Admin: 07/15/18 13:42 Dose: 5,000 units Aztreonam (Azactam 1 Gm) 100 mls @ 100 mls/hr IVPB Q8 [facility]; Protocol Stop: 07/23/18 09:46 Last Admin: 07/18/18 05:21 Dose: 100 mls/hr Doxycycline Hyclate 100 mg/ (Sodium Chloride) 100 mls @ 100 mls/hr IVPB Q12 [facility]; Protocol Last Admin: 07/18/18 10:06 Dose: 100 mls/hr Vancomycin HCl (Vancomycin 1gm) 1 gm in 250 mls @ 167 mls/hr IVPB Q12H [facility]; Protocol Levalbuterol HCl (Xopenex) 0.63 mg IH [id number] [facility] Last Admin: 07/18/18 07:16 Dose: 0.63 mg Midodrine (Proamatine) 5 mg PO TID [facility] Last Admin: 07/18/18 09:51 Dose: Not Given Montelukast Sodium (Singulair) 10 mg PO HS [facility] Last Admin: 07/17/18 22:13 Dose: 10 mg Morphine Sulfate (Morphine) 1 mg IVP Q6H PRN PRN Reason: Pain, severe (8-10) Multivitamins/Vitamin C (Multi-Delyn Liquid) 15 ml PO 0800 [facility] Last Admin: 07/18/18 09:49 Dose: Not Given Mupirocin (Bactroban Ointment) 0 gm NS BID [facility] Stop: 07/19/18 10:01 Last Admin: 07/18/18 09:50 Dose: 1 applic Ambrisentan [ Letairis] 5 Mg ( Home Med) 5 mg PO DAILY [facility] Last Admin: 07/18/18 09:39 Dose: Not Given Ondansetron HCl (Zofran Inj) 4 mg IVP Q4H PRN PRN Reason: Nausea/Vomiting Oseltamivir Phosphate (Tamiflu Cap) 75 mg PO BID [facility]; Protocol Stop: 07/22/18 11:04 Last Admin: 07/18/18 09:39 Dose: Not Given Prednisone (Prednisone Tab) 40 mg PO DAILY [facility] Last Admin: 07/18/18 09:51 Dose: Not Given Sildenafil Citrate (Revatio) 20 mg PO TID [facility] Last Admin: 07/18/18 09:51 Dose: Not Given - Labs Labs: 07/18/18 05:30 07/18/18 05:30 PT 12.4 SECONDS (9.4-12.5) 07/16/18 08:15 INR 1.08 07/16/18 08:15 APTT 27.5 Seconds (25.1-36.5) 07/16/18 08:15 - Constitutional Appears: Chronically Ill - Head Exam Head Exam: NORMAL INSPECTION - Respiratory Exam Respiratory Exam: Decreased Breath Sounds - Cardiovascular Exam Cardiovascular Exam: +S1, +S2 - GI/Abdominal Exam GI & Abdominal Exam: Soft. absent: Tenderness Assessment and Plan - Assessment and Plan (Free Text) Plan: Assessment consider bilateral lower lobe HCAP in this patient presenting acute myocardial infarction S/P cardiac cath positive influenza A titers, either previous infection or response to influenza vaccination right groin hematoma after cardiac cath history of right leg cellulitis with Pseudomonas in this patient with probable chronic venous stasis, S/P treatment with antibiotics COPD diastolic CHF pulmonary HTN Plan continue Vancomycin, Aztreonam and Doxycycline day 4; cultures have been n egative; nasal MRSA screen is positive Influenza antibody titers are not used for the diagnosis of acute Influenza infection will continue to monitor clinically follow up further plans for the right groin hematoma follow up further recommendations of Cardiology
[2018-07-19] MEDS: Silver Sulfadiazine 1% Cream (25 gm) TP SCH ×2 (12:43→17:11)
--- NOTE | 2018-07-19 12:54 | PN ---
Covering for Dr. Loyd. SUBJECTIVE: The patient seen and examined at bedside in the ICU. No acute events overnight. She remains clinically stable. OBJECTIVE: VITAL SIGNS: Temperature 98.8, pulse 121, blood pressure 165/100, respiratory rate 20, oxygen saturation 98% on 2L NC. GENERAL: Nontoxic elderly woman, lying in bed in no apparent distress. HEENT: PERRL, EOMI. No scleral icterus. Mild conjunctival pallor is noted. NECK: No JVD. LUNGS: Decreased breath sounds at the bases with few scattered rhonchi. CARDIOVASCULAR: Tachycardic, irregularly irregular. Grade II/ SANDY to LLSB. ABDOMEN: Normoactive bowel sounds, soft, nontender, nondistended. EXTREMITIES: Large hematoma to right cardiac catheterization site. NEUROLOGIC: Awake, alert and oriented x 3. No focal motor deficits. LABORATORY DATA: WBC 11.3 with 85% neutrophils, hemoglobin 9.7, hematocrit 33, platelets 120. Sodium 142, potassium 4.2, chloride 98, bicarb 41, BUN 42, creatinine 1, glucose 106. Blood cultures with no growth to date. ASSESSMENT: The patient is an 82-year-old woman with multiple medical comorbidities who presented for evaluation of angina and underwent cardiac catheterization with successful PCI with stent placement to the RCA lesion whose postprocedure course was complicated by development of right groin hematoma and was transferred to the ICU for continued monitoring and transfusion of 4 units of PRBC's and is demonstrating gradual clinical improvement. PLAN: 1. Hematoma of the right thigh. The patient is s/p transfusion of 4 units of PRBCs and with stable Hb. Input from surgical team appreciated and no plans for acute surgical intervention. Continue with local care. Continue to monitor CBC and transfuse as needed. 2. CAD s/p PCI with stent placement. Input from Dr. Handy noted. Continue Lipitor 40 mg p.o. daily and Plavix 75 mg p.o. daily 3. Sepsis secondary to bilateral healthcare-associated pneumonia. Input from Dr. Thomas noted. The patient remains afebrile and with negative cultures. Continue current antimicrobials as per the Dr. Thomas. 4. Atrial fibrillation. The patient remains tachycardic. Diltiazem 60 mg p.o. q. 8 hours has been started. We will continue to monitor hemodynamics and adjust medications as needed 5. Severe COPD. Continue supplemental oxygen, bronchodilators and inhaled corticosteroids. 6. Severe pulmonary hypertension. Continue Sildenafil 20 mg p.o. t.i.d. 7. Diastolic congestive heart failure. Continue Lasix 20 mg IV q. 12 hours. 8. Thrombocytopenia. Labs with stable platelet count. We will continue to monitor. 9. Depression. Continue Lexapro 5 mg p.o. at bedtime. 10. Prophylaxis. Continue with Pepcid for GI prophylaxis and SCDs for DVT prophylaxis. CODE STATUS: DNR/DNI. Parish Fields MD MTDGerardo
[2018-07-20] MEDS: Vancomycin 1gm in NS 250ml 1 GM/250 ML BAG IVPB SCH ×2 (01:06→13:20)
[2018-07-20] MEDS: Acetylcysteine 20% Inhal Soln (4ml) IH SCH ×5 (02:24→21:41)
[2018-07-20] MEDS: Levalbuterol 0.63 MG/3 ML Inhal Soln UD IH SCH ×4 (02:24→21:42)
[2018-07-20] MEDS: Aztreonam 1 Gm in NS 100mL 100 ML IVPB SCH ×3 (06:43→21:59)
[2018-07-20] MEDS: Arformoterol 15 mcg/2 ml Inh Sol IH SCH ×2 (07:55→21:42)
[2018-07-20 07:56] LABS: EOS % 0.3 % (1.5-5.0); GRAN # 9.69 (1.4-6.5); GRAN % 81.7 % (50.0-68.0); HEMOGLOBIN 9.9 g/dL (12.0-16.0); LYMPH # 1.3 (1.2-3.4); LYMPH % 10.6 % (22.0-35.0); MEAN CORPUSCULAR HEMOGLOBIN 29.5 pg (25.0-35.0); MEAN CORPUSCULAR HGB CONC 29.5 g/dl (31.0-37.0); MEAN PLATELET VOLUME 10.3 fl (7.0-11.0); MONO # 0.9 (0.1-0.6); MONO % 7.4 % (1.0-6.0); RBC 3.36 10^6/uL (3.5-6.1); RED CELL DISTRIBUTION WIDTH 15.7 % (11.5-14.5); WHITE BLOOD COUNT 11.9 10^3/uL (4.5-11.0)
[2018-07-20 08:13] LABS: ALB/GLOB RATIO 1.3 (1.1-1.8); ALBUMIN 3.5 g/dL (3.0-4.8); ALT/SGPT 61 U/L (7-56); AST/SGOT 47 U/L (14-36); BILIRUBIN,DIRECT 0.2 mg/dL (0.0-0.4); BLOOD UREA NITROGEN 45 mg/dL (7-21); CALCIUM 9.1 mg/dL (8.4-10.5); GFR NON-AFRICAN AMERICAN > 60
--- NOTE | 2018-07-20 09:18 | CP.PCM.PN ---
Subjective - Date & Time of Evaluation Date of Evaluation: 07/20/18 Time of Evaluation: 08:00 - Subjective Subjective: Patient seen and examined at bedside in no acute distress. Has no complaints at this time. Objective - Vital Signs/Intake and Output Vital Signs (last 24 hours): Temp Pulse Resp BP Pulse Ox 98.0 F 87 20 139/73 93 L 07/20/18 06:00 07/20/18 06:46 07/20/18 06:00 07/20/18 06:46 07/20/18 06:00 Intake and Output: 07/20/18 07/20/18 06:59 18:59 Intake Total 240 Output Total 350 Balance -110 - Medications Medications: Current Medications Acetaminophen (Tylenol 325mg Tab) 650 mg PO Q6 PRN PRN Reason: TEMP>=99.5F Acetaminophen (Tylenol 650 Mg Supp) 650 mg RC Q6H PRN PRN Reason: TEMP>=99.5F Acetylcysteine (Acetylcysteine 20%) 4 ml IH [id number] [facility] Last Admin: 07/20/18 07:55 Dose: 4 ml Arformoterol Tartrate (Brovana) 15 mcg IH [id number] [facility] Last Admin: 07/20/18 07:55 Dose: 15 mcg Ascorbic Acid (Vitamin C 500 Mg Tab) 500 mg PO BID [facility] Last Admin: 07/19/18 17:10 Dose: 500 mg Atorvastatin Calcium (Lipitor) 40 mg PO DIN [facility] Last Admin: 07/19/18 17:11 Dose: 40 mg Clopidogrel Bisulfate (Plavix) 75 mg PO DAILY [facility] Last Admin: 07/19/18 09:19 Dose: 75 mg Diltiazem HCl (Cardizem) 60 mg PO Q8 [facility] Last Admin: 07/20/18 06:46 Dose: 60 mg Docusate Sodium (Colace) 100 mg PO TID [facility] Last Admin: 07/19/18 17:11 Dose: 100 mg Escitalopram Oxalate (Lexapro) 5 mg PO HS [facility] Last Admin: 07/19/18 23:21 Dose: 5 mg Famotidine (Pepcid) 20 mg PO 1000,2200 [facility] Last Admin: 07/19/18 23:10 Dose: 20 mg Furosemide (Lasix) 20 mg IVP Q12 [facility] Last Admin: 07/20/18 01:04 Dose: Not Given Heparin Sodium (Porcine) (Heparin) 5,000 units SC Q8H [facility]; Protocol Last Admin: 07/15/18 13:42 Dose: 5,000 units Aztreonam (Azactam 1 Gm) 100 mls @ 100 mls/hr IVPB Q8 [facility]; Protocol Stop: 07/23/18 09:46 Last Admin: 07/20/18 06:43 Dose: Not Given Doxycycline Hyclate 100 mg/ (Sodium Chloride) 100 mls @ 100 mls/hr IVPB Q12 [facility]; Protocol Last Admin: 07/19/18 23:30 Dose: Not Given Vancomycin HCl (Vancomycin 1gm) 1 gm in 250 mls @ 167 mls/hr IVPB Q12H [facility]; P rotocol Last Admin: 07/20/18 01:06 Dose: Not Given Levalbuterol HCl (Xopenex) 0.63 mg IH [id number] [facility] Last Admin: 07/20/18 07:55 Dose: 0.63 mg Midodrine (Proamatine) 5 mg PO TID [facility] Last Admin: 07/19/18 17:11 Dose: 5 mg Montelukast Sodium (Singulair) 10 mg PO HS [facility] Last Admin: 07/19/18 23:09 Dose: 10 mg Morphine Sulfate (Morphine) 1 mg IVP Q6H PRN PRN Reason: Pain, severe (8-10) Multivitamins/Vitamin C (Multi-Delyn Liquid) 15 ml PO 0800 [facility] Last Admin: 07/19/18 08:41 Dose: 15 ml Ambrisentan [ Letairis] 5 Mg ( Home Med) 5 mg PO DAILY [facility] Last Admin: 07/19/18 11:42 Dose: Not Given Ondansetron HCl (Zofran Inj) 4 mg IVP Q4H PRN PRN Reason: Nausea/Vomiting Oseltamivir Phosphate (Tamiflu Cap) 75 mg PO BID [facility]; Protocol Stop: 07/22/18 11:04 Last Admin: 07/19/18 17:19 Dose: 75 mg Prednisone (Prednisone Tab) 40 mg PO DAILY [facility] Last Admin: 07/19/18 09:18 Dose: 40 mg Sildenafil Citrate (Revatio) 20 mg PO TID [facility] Last Admin: 07/19/18 17:11 Dose: 20 mg Silver Sulfadiazine (Silvadene 1% 25 Gm) 0 gm TP BID [facility] Last Admin: 07/19/18 17:11 Dose: 25 gm - Labs Labs: 07/20/18 07:40 07/20/18 07:40 PT 12.4 SECONDS (9.4-12.5) 07/16/18 08:15 INR 1.08 07/16/18 08:15 APTT 27.5 Seconds (25.1-36.5) 07/16/18 08:15 - Constitutional Appears: Non-toxic - Head Exam Head Exam: ATRAUMATIC - Eye Exam Eye Exam: Normal appearance - ENT Exam ENT Exam: Mucous Membranes Dry - Respiratory Exam Respiratory Exam: Decreased Breath Sounds - Cardiovascular Exam Cardiovascular Exam: +S1, +S2 - GI/Abdominal Exam GI & Abdominal Exam: Soft - Neurological Exam Neurological Exam: Awake - Skin Skin Exam: Dry Assessment and Plan - Assessment and Plan (Free Text) Assessment: Patient is an 82 F with history of new onset atrial fibrillation, severe pulmonary hypertension with RVSP 145, right sided diastolic congestive heart failure presenting with hypercapnic respiratory failure Hematoma right thigh CAD s/p PCI with stent placement -continue with aspirin and plavix Sepsis secondary to bilateral HAP -Continue with aztreonam, doxycylcine, and vancomycni day #5 Influenza A -Continue with tamiflu day #2 Atrial fibrillation -Continue with diltiazem 60 mg q8H Severe COPD -Continue supplemental oxygen, mucomyst, brovana, xopenex, singulair -Will begin tapering steroids from 40 mg to 30 mg Severe Pulmonary hypertension -Continue with Sildenafil 20 mg PO TID -Continue with Ambrisentan 5 mg Diastolic congestive heart failure -Continue lasix 20 mg IV q12h Thrombocytopenia -Continue to monitor platelet count Depression -Continue with lexapro 5 mg qHS GI/DVT prophlyaxis: Continue with pepcid and SCDs
--- NOTE | 2018-07-20 09:30 | CP.PCM.PN ---
<Joshua Perez - Last Filed: 07/20/18 12:50> Subjective - Date & Time of Evaluation Date of Evaluation: 07/20/18 Time of Evaluation: 09:28 - Subjective Subjective: Surgery Progress note- Dr. Membreno Patient seen and examined at bedside. Transferred out of ICU overnight. Remains Hemodynamically stable. Palpable RLE popliteal. Hematoma improving. Silavdene w/ telfa and krillex wrapping wound. Hgb remains stable at 9.9. Objective - Vital Signs/Intake and Output Vital Signs (last 24 hours): Temp Pulse Resp BP Pulse Ox 98.0 F 87 20 139/73 93 L 07/20/18 06:00 07/20/18 06:46 07/20/18 06:00 07/20/18 06:46 07/20/18 06:00 Intake and Output: 07/20/18 07/20/18 06:59 18:59 Intake Total 240 Output Total 350 Balance -110 - Medications Medications: Current Medications Acetaminophen (Tylenol 325mg Tab) 650 mg PO Q6 PRN PRN Reason: TEMP>=99.5F Acetaminophen (Tylenol 650 Mg Supp) 650 mg RC Q6H PRN PRN Reason: TEMP>=99.5F Acetylcysteine (Acetylcysteine 20%) 4 ml IH [id number] [facility] Last Admin: 07/20/18 07:55 Dose: 4 ml Arformoterol Tartrate (Brovana) 15 mcg IH [id number] [facility] Last Admin: 07/20/18 07:55 Dose: 15 mcg Ascorbic Acid (Vitamin C 500 Mg Tab) 500 mg PO BID [facility] Last Admin: 07/19/18 17:10 Dose: 500 mg Atorvastatin Calcium (Lipitor) 40 mg PO DIN [facility] Last Admin: 07/19/18 17:11 Dose: 40 mg Clopidogrel Bisulfate (Plavix) 75 mg PO DAILY [facility] Last Admin: 07/19/18 09:19 Dose: 75 mg Diltiazem HCl (Cardizem) 60 mg PO Q8 [facility] Last Admin: 07/20/18 06:46 Dose: 60 mg Docusate Sodium (Colace) 100 mg PO TID [facility] Last Admin: 07/19/18 17:11 Dose: 100 mg Escitalopram Oxalate (Lexapro) 5 mg PO HS [facility] Last Admin: 07/19/18 23:21 Dose: 5 mg Famotidine (Pepcid) 20 mg PO 1000,2200 [facility] Last Admin: 07/19/18 23:10 Dose: 20 mg Furosemide (Lasix) 20 mg IVP Q12 [facility] Last Admin: 07/20/18 01:04 Dose: Not Given Heparin Sodium (Porcine) (Heparin) 5,000 units SC Q8H [facility]; Protocol Last Admin: 07/15/18 13:42 Dose: 5,000 units Aztreonam (Azactam 1 Gm) 100 mls @ 100 mls/hr IVPB Q8 [facility]; Protocol Stop: 07/23/18 09:46 Last Admin: 07/20/18 06:43 Dose: Not Given Doxycycline Hyclate 100 mg/ (Sodium Chloride) 100 mls @ 100 mls/hr IVPB Q12 [facility]; Protocol Last Admin: 07/19/18 23:30 Dose: Not Given Vancomycin HCl (Vancomycin 1gm) 1 gm in 250 mls @ 167 mls/hr IVPB Q12H [facility]; Protocol Last Admin: 07/20/18 01:06 Dose: Not Given Levalbuterol HCl (Xopenex) 0.63 mg IH [id number] [facility] Last Admin: 07/20/18 07:55 Dose: 0.63 mg Midodrine (Proamatine) 5 mg PO TID [facility] Last Admin: 07/19/18 17:11 Dose: 5 mg Montelukast Sodium (Singulair) 10 mg PO HS [facility] Last Admin: 07/19/18 23:09 Dose: 10 mg Morphine Sulfate (Morphine) 1 mg IVP Q6H PRN PRN Reason: Pain, severe (8-10) Multivitamins/Vitamin C (Multi-Delyn Liquid) 15 ml PO 0800 [facility] Last Admin: 07/19/18 08:41 Dose: 15 ml Ambrisentan [ Letairis] 5 Mg ( Home Med) 5 mg PO DAILY [facility] Last Admin: 07/19/18 11:42 Dose: Not Given Ondansetron HCl (Zofran Inj) 4 mg IVP Q4H PRN PRN Reason: Nausea/Vomiting Oseltamivir Phosphate (Tamiflu Cap) 75 mg PO BID [facility]; Protocol Stop: 07/22/18 11:04 Last Admin: 07/19/18 17:19 Dose: 75 mg Prednisone (Prednisone Tab) 40 mg PO DAILY [facility] Last Admin: 07/19/18 09:18 Dose: 40 mg Sildenafil Citrate (Revatio) 20 mg PO TID [facility] Last Admin: 07/19/18 17:11 Dose: 20 mg Silver Sulfadiazine (Silvadene 1% 25 Gm) 0 gm TP BID [facility] Last Admin: 07/19/18 17:11 Dose: 25 gm - Labs Labs: 07/20/18 07:40 07/20/18 07:40 PT 12.4 SECONDS (9.4-12.5) 07/16/18 08:15 INR 1.08 07/16/18 08:15 APTT 27.5 Seconds (25.1-36.5) 07/16/18 08:15 - Constitutional Appears: Non-toxic, No Acute Distress, Chronically Ill - Head Exam Head Exam: ATRAUMATIC - Eye Exam Eye Exam: EOMI. absent: Scleral icterus - ENT Exam ENT Exam: Mucous Membranes Moist - Respiratory Exam Respiratory Exam: NORMAL BREATHING PATTERN. absent: Accessory Muscle Use, Respiratory Distress - Cardiovascular Exam Cardiovascular Exam: REGULAR RHYTHM. absent: Bradycardia, Tachycardia - GI/Abdominal Exam GI & Abdominal Exam: Soft. absent: Distended, Firm, Guarding, Tenderness - Extremities Exam Additional comments: RLE hematoma soft and improving in size. - Neurological Exam Neurological Exam: Alert, Awake - Psychiatric Exam Psychiatric exam: Normal Affect - Skin Skin Exam: Intact, Warm Assessment and Plan - Assessment and Plan (Free Text) Assessment: 82F s/p cardiac cath now w. R thigh hematoma Plan: -H/H stable, continue to monitor, transfuse PRN, target hgb >7 -Warm compress 20min TID -silvadene w/ dry dressing over RLE hematoma -Pt remains tachycardic, recommend improved rate control, will defer to medicine -will continue to follow, may eventually need drainage of hematoma -further recs per Dr. Haseeb Perez PGY2 <Mason Membreno - Last Filed: 07/22/18 10:02> Objective - Vital Signs/Intake and Output Vital Signs (last 24 hours): Temp Pulse Resp BP Pulse Ox 97.5 F L 83 19 148/69 98 07/22/18 05:57 07/22/18 05:57 07/22/18 05:57 07/22/18 05:57 07/22/18 05:57 Intake and Output: 07/22/18 07/22/18 06:59 18:59 Intake Total 1030 Output Total 300 Balance 730 - Medications Medications: Current Medications Acetaminophen (Tylenol 325mg Tab) 650 mg PO Q6 PRN PRN Reason: TEMP>=99.5F Acetaminophen (Tylenol 650 Mg Supp) 650 mg RC Q6H PRN PRN Reason: TEMP>=99.5F Acetylcysteine (Acetylcysteine 20%) 4 ml IH [id number] [facility] Last Admin: 07/22/18 07:49 Dose: 4 ml Arformoterol Tartrate (Brovana) 15 mcg IH [id number] [facility] Last Admin: 07/22/18 07:49 Dose: 15 mcg Ascorbic Acid (Vitamin C 500 Mg Tab) 500 mg PO BID [facility] Last Admin: 07/21/18 18:24 Dose: Not Given Atorvastatin Calcium (Lipitor) 40 mg PO DIN [facility] Last Admin: 07/21/18 18:25 Dose: Not Given Clopidogrel Bisulfate (Plavix) 75 mg PO DAILY [facility] Last Admin: 07/21/18 12:56 Dose: 75 mg Diltiazem HCl (Cardizem) 60 mg PO Q8 [facility] Last Admin: 07/21/18 21:31 Dose: 60 mg Docusate Sodium (Colace) 100 mg PO TID [facility] Last Admin: 07/21/18 18:17 Dose: Not Given Escitalopram Oxalate (Lexapro) 5 mg PO HS [facility] Last Admin: 07/21/18 21:35 Dose: 5 mg Famotidine (Pepcid) 20 mg PO 1000,2200 [facility] Last Admin: 07/21/18 21:31 Dose: 20 mg Furosemide (Lasix) 20 mg IVP DAILY [facility] Heparin Sodium (Porcine) (Heparin) 5,000 units SC Q8H [facility]; Protocol Last Admin: 07/15/18 13:42 Dose: 5,000 units Aztreonam (Azactam 1 Gm) 100 mls @ 100 mls/hr IVPB Q8 [facility]; Protocol Stop: 07/23/18 09:46 Last Admin: 07/21/18 21:37 Dose: 100 mls/hr Doxycycline Hyclate 100 mg/ (Sodium Chloride) 100 mls @ 100 mls/hr IVPB Q12 [facility]; Protocol Last Admin: 07/21/18 22:52 Dose: 100 mls/hr Vancomycin HCl (Vancomycin 1gm) 1 gm in 250 mls @ 167 mls/hr IVPB Q12H [facility]; Protocol Last Admin: 07/21/18 13:05 Dose: 167 mls/hr Levalbuterol HCl (Xopenex) 0.63 mg IH [id number] [facility] Last Admin: 07/22/18 07:49 Dose: 0.63 mg Midodrine (Proamatine) 5 mg PO TID [facility] Last Admin: 07/21/18 18:25 Dose: Not Given Montelukast Sodium (Singulair) 10 mg PO HS [facility] Last Admin: 07/21/18 21:36 Dose: 10 mg Multivitamins/Vitamin C (Multi-Delyn Liquid) 15 ml PO 0800 [facility] Last Admin: 07/21/18 09:11 Dose: Not Given Ambrisentan [ Letairis] 5 Mg ( Home Med) 5 mg PO DAILY [facility] Last Admin: 07/21/18 11:04 Dose: Not Given Ondansetron HCl (Zofran Inj) 4 mg IVP Q4H PRN PRN Reason: Nausea/Vomiting Prednisone (Prednisone Tab) 30 mg PO DAILY [facility] Last Admin: 07/21/18 12:57 Dose: 30 mg Sildenafil Citrate (Revatio) 20 mg PO TID [facility] Last Admin: 07/21/18 18:25 Dose: Not Given Silver Sulfadiazine (Silvadene 1% 25 Gm) 0 gm TP BID [facility] Last Admin: 07/21/18 18:18 Dose: Not Given - Labs Labs: 07/22/18 05:30 07/22/18 05:30 PT 12.4 SECONDS (9.4-12.5) 07/16/18 08:15 INR 1.08 07/16/18 08:15 APTT 27.5 Seconds (25.1-36.5) 07/16/18 08:15 Assessment and Plan - Assessment and Plan (Free Text) Plan: Patient was seen, evaluated and examined by me. I agree with the assessment and plan as per the resident's note.
[2018-07-20] MEDS: AMBRISENTAN 5 MG PO SCH (10:28)
[2018-07-20] MEDS: Multi Vitamins 15 mL UD Oral Solution PO SCH (10:42)
[2018-07-20] MEDS: Sildenafil 20 MG TAB PO SCH ×3 (10:43→18:45)
--- NOTE | 2018-07-20 10:58 | CP.PCM.PN ---
Subjective - Date & Time of Evaluation Date of Evaluation: 07/20/18 Time of Evaluation: 10:10 - Subjective Subjective: No fevers, not in distress, comfortable in bed. Objective - Vital Signs/Intake and Output Vital Signs (last 24 hours): Temp Pulse Resp BP Pulse Ox 98 F 121 H 21 165/100 H 75 L 07/19/18 00:00 07/19/18 08:41 07/19/18 06:28 07/19/18 09:24 07/19/18 02:49 Intake and Output: 07/19/18 07/19/18 06:59 18:59 Intake Total 500 Output Total 650 Balance -150 - Medications Medications: Current Medications Acetaminophen (Tylenol 325mg Tab) 650 mg PO Q6 PRN PRN Reason: TEMP>=99.5F Acetaminophen (Tylenol 650 Mg Supp) 650 mg RC Q6H PRN PRN Reason: TEMP>=99.5F Acetylcysteine (Acetylcysteine 20%) 4 ml IH [id number] [facility] Last Admin: 07/19/18 07:33 Dose: 4 ml Arformoterol Tartrate (Brovana) 15 mcg IH [id number] [facility] Last Admin: 07/19/18 07:33 Dose: 15 mcg Ascorbic Acid (Vitamin C 500 Mg Tab) 500 mg PO BID [facility] Last Admin: 07/19/18 09:19 Dose: 500 mg Atorvastatin Calcium (Lipitor) 40 mg PO DIN [facility] Last Admin: 07/18/18 17:34 Dose: 40 mg Clopidogrel Bisulfate (Plavix) 75 mg PO DAILY [facility] Last Admin: 07/19/18 09:19 Dose: 75 mg Diltiazem HCl (Cardizem) 60 mg PO Q8 [facility] Last Admin: 07/19/18 11:40 Dose: Not Given Docusate Sodium (Colace) 100 mg PO TID [facility] Last Admin: 07/19/18 09:19 Dose: 100 mg Escitalopram Oxalate (Lexapro) 5 mg PO HS [facility] Last Admin: 07/18/18 21:40 Dose: 5 mg Famotidine (Pepcid) 20 mg PO 1000,2200 [facility] Last Admin: 07/19/18 09:18 Dose: 20 mg Furosemide (Lasix) 20 mg IVP Q12 [facility] Last Admin: 07/19/18 09:24 Dose: 20 mg Heparin Sodium (Porcine) (Heparin) 5,000 units SC Q8H [facility]; Protocol Last Admin: 07/15/18 13:42 Dose: 5,000 units Aztreonam (Azactam 1 Gm) 100 mls @ 100 mls/hr IVPB Q8 [facility]; Protocol Stop: 07/23/18 09:46 Last Admin: 07/19/18 05:29 Dose: 100 mls/hr Doxycycline Hyclate 100 mg/ (Sodium Chloride) 100 mls @ 100 mls/hr IVPB Q12 [facility]; Protocol Last Admin: 07/19/18 09:19 Dose: 100 mls/hr Vancomycin HCl (Vancomycin 1gm) 1 gm in 250 mls @ 167 mls/hr IVPB Q12H [facility]; Protocol Last Admin: 07/19/18 01:37 Dose: 167 mls/hr Levalbuterol HCl (Xopenex) 0.63 mg IH [id number] [facility] Last Admin: 07/19/18 07:33 Dose: 0.63 mg Midodrine (Proamatine) 5 mg PO TID [facility] Last Admin: 07/19/18 09:19 Dose: 5 mg Montelukast Sodium (Singulair) 10 mg PO HS [facility] Last Admin: 07/18/18 21:41 Dose: 10 mg Morphine Sulfate (Morphine) 1 mg IVP Q6H PRN PRN Reason: Pain, severe (8-10) Multivitamins/Vitamin C (Multi-Delyn Liquid) 15 ml PO 0800 [facility] Last Admin: 07/19/18 08:41 Dose: 15 ml Ambrisentan [ Letairis] 5 Mg ( Home Med) 5 mg PO DAILY [facility] Last Admin: 07/19/18 11:42 Dose: Not Given Ondansetron HCl (Zofran Inj) 4 mg IVP Q4H PRN PRN Reason: Nausea/Vomiting Oseltamivir Phosphate (Tamiflu Cap) 75 mg PO BID [facility]; Protocol Stop: 07/22/18 11:04 Last Admin: 07/19/18 09:23 Dose: 75 mg Prednisone (Prednisone Tab) 40 mg PO DAILY [facility] Last Admin: 07/19/18 09:18 Dose: 40 mg Sildenafil Citrate (Revatio) 20 mg PO TID [facility] Last Admin: 07/19/18 09:19 Dose: 20 mg Silver Sulfadiazine (Silvadene 1% 25 Gm) 0 gm TP BID [facility] - Labs Labs: 07/19/18 06:35 07/19/18 06:35 PT 12.4 SECONDS (9.4-12.5) 07/16/18 08:15 INR 1.08 07/16/18 08:15 APTT 27.5 Seconds (25.1-36.5) 07/16/18 08:15 - Constitutional Appears: Chronically Ill - Head Exam Head Exam: NORMAL INSPECTION - Respiratory Exam Respiratory Exam: Decreased Breath Sounds - Cardiovascular Exam Cardiovascular Exam: +S1, +S2 - GI/Abdominal Exam GI & Abdominal Exam: Soft. absent: Tenderness - Extremities Exam Additional comments: right thigh with swelling and bulla formation Assessment and Plan - Assessment and Plan (Free Text) Plan: Assessment consider bilateral lower lobe HCAP in this patient presenting acute myocardial infarction S/P cardiac cath positive influenza A titers, either previous infection or response to influenza vaccination right groin hematoma after cardiac cath history of right leg cellulitis with Pseudomonas in this patient with probable chronic venous stasis, S/P treatment with antibiotics COPD diastolic CHF pulmonary HTN Plan continue Vancomycin, Aztreonam and Doxycycline day 5 - target up to 7 days of antibiotics; cultures have been negative; nasal MRSA screen is positive Influenza antibody titers are not used for the diagnosis of acute Influenza infection will continue to monitor clinically follow up further plans for the right groin hematoma follow up further recommendations of Cardiology
[2018-07-20] MEDS: Silver Sulfadiazine 1% Cream (25 gm) TP SCH ×2 (11:00→18:46)
--- NOTE | 2018-07-20 12:11 | PN ---
DATE: 07/20/2018 SUBJECTIVE: The patient is seen in room 262, bed one. The patient is seen lying in the bed. Overnight nurse's notes were reviewed. The patient was found to have poor IV access for which midline has been ordered. The patient slept well. The patient was transferred out of the ICU yesterday. OBJECTIVE: VITAL SIGNS: T-max 98. Telemetry shows atrial fibrillation, heart rate 78, 87, 84. Yesterday's heart rate was in high 110s, blood pressure 139/73, 140/73, respirations 20, O2 sat is 93, 94, 96, 92%. INTAKE/OUTPUT: Output is only 350. Head: Normocephalic, atraumatic. HEENT examination shows pinkish pale conjunctivae. Anicteric sclerae. No oropharyngeal lesion. NECK: No neck rigidity. CHEST: Kyphosis, decreased breath sound at the bases. Positive rhonchi and creps noted bilaterally. CARDIOVASCULAR: Shows S1, S2, irregular rhythm. Positive systolic murmur, left sternal border, right second intercostal space, left second intercostal space. ABDOMEN: Soft. Positive bowel sounds. No palpable hepatosplenomegaly. GENITALIA: Female. RECTAL: Deferred. EXTREMITIES: Upper extremity shows positive swelling of the upper extremity. Lower extremity shows trace swelling of the lower extremity. Right thigh anterior hematoma, persistent. With slow resolution. MUSCULOSKELETAL: Shows a body mass index of 27. NEUROLOGIC: The patient is alert, awake, responsive. Gait examination is not tested. DIAGNOSTICS 07/20, WBC 11.9, hemoglobin/hematocrit 9.9, 33.6, platelets 144, 141, 177. Granulocytes 82% segs. Sodium 144, potassium 4.2, chloride 99, CO2 43, anion gap 6, BUN 45, creatinine 0.8, GFR greater than 60, glucose 117, calcium 9.1, phosphorus 2.5, magnesium 2.0, AST 47, ALT 61, total protein 6.1, albumin 3.5. Influenza A titer one is 216, MRSA in nares detected. The patient received 4 units of PRBC. IMPRESSION AND PLAN: 1. Acute hypoxic hypercarbic hypoxic hypercarbic respiratory failure with severe respiratory acidosis and CO2 narcosis. 2. Severe pulmonary hypertension with right ventricular systolic pressure of 145. 3. Moderate concentric left ventricular hypertrophy with left ventricle ejection fraction of 65% to 70%. 4 Right ventricular volume and pressure overload with grade 3 wrist reversible restrictive diastolic dysfunction. 5. Severely dilated right ventricle with moderate right ventricular hypertrophy and moderate to severely reduced right ventricular systolic function. 6. Moderate to severely dilated left and right atrium. 7. Moderate aortic valve sclerosis with moderate aortic sclerosis of mild aortic stenosis. 8. Severe mitral annular calcification with moderate to severe mitral regurgitation with eccentric jet posteriorly directed. 9. Severe tricuspid regurgitation with right ventricular systolic pressure of 101/1945 mmHg with severe pulmonary hypertension. 10.. Hypoxemia. 11. Atrial fibrillation. 12. Normocytic anemia with granulocytosis and decreasing hemoglobin/hematocrit. 13. Transient thrombocytopenia. 14. Prerenal kidney injury. 15. Metabolic alkalosis. 16. Transaminitis. 17. Mild protein malnutrition and hypoalbuminemia. 18. Positive influenza A antibody titers. 19. Positive methicillin-resistant Staphylococcus aureus nares. 20. Status post packed red blood cell transfusion x4. 21. Chest pain. 22. Large 10-cm complex right groin and right upper thigh hematoma status post cardiac catheterization. 23. Bilateral alveolar infiltrate and bilateral pneumonia and large bilateral pleural effusion. 24. Severely calcified mitral valve with aortic valve calcification. 25. Post cardiac catheterization large right groin and right upper thigh large complex hematoma with extensive subcutaneous at doing edema and anasarca. 26. Atrial fibrillation. 27. Elevated right atrial pressure of 18 mmHg. 28. 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 29. Diffuse atherosclerosis of the left main coronary artery, left anterior descending and diagonal vessels and left circumflex and obtuse marginal vessels. 30. Status post successful angioplasty and stent placement of the eccentric 70-78% stenosis of the proximal right coronary artery with placement of the bare-metal stent. 31. Bilateral multilobar healthcare-associated pneumonia. 32. Right groin, right upper thigh hematoma. 33. Bilateral alveolar infiltrate and bilateral pneumonia with large bilateral pleural effusion. 34. Cardiomegaly. 35. Severely calcified mitral valve with aortic valve calcification. 36 Degenerative joint disease of the right hip with joint space narrowing and cortical sclerosis and osteophyte development. 37. Mild pelvic ascites. 38 Atrial fibrillation with rapid ventricle response. 39. Acute diastolic right-sided congestive heart failure with severely advanced pulmonary hypertension and elevated ProBNP. 40. Questionable prediabetes. 41. Questionable depression with delirium. 42. Deconditioning. 43. Gait dysfunction. 44. Constipation. 45. Chronic obstructive pulmonary disease. 46. Depression. 46. Dyslipidemia. 47. Hypotension. PLAN: At this time, the patient has been ordered physical therapy, occupational therapy, gait training, ambulation therapy all ordered. The patient will be continued on repeat labs for the morning. Current consultation General Surgery, Infectious Disease, Cardiology.. CURRENT MEDICATIONS: Mucomyst nebulizer 20% 4 mL with Xopenex nebulizer 0.63 mg every 6 hours, 5 mg daily, Azactam 1 g IV every eight hours, Brovana 15 mcg every 12 hours, Cardizem increased to 60 mg p.o. q. eight hours, Colace 100 mg three times a day, Vibramycin 100 mg every 12 hours tablet, heparin 5000 subcu every eight hours, Lasix 20 mg IV every 12 hours, Lexapro 5 mg at bedtime, Lipitor 40 mg daily, morphine 1 mg IV every six hours p.r.n., multivitamin 1 tablet daily, Pepcid 20 mg twice a day, Plavix 75 mg daily, prednisone 40 mg daily which will be decreased to 30 mg starting today. The patient is on midodrine 5 mg three times a day, Revatio 20 mg three times a day, Silvadene cream to the affected area, Singulair 10 mg at bedtime, Tamiflu 75 mg twice a day for 5 days, Tylenol p.r.n., vancomycin 1 g IV every 12 hours, vitamin C 500 mg twice a day, Xopenex nebulizer, Zofran four IV every four hours p.r.n. The patient has been ordered physical therapy, ambulation therapy, out of bed to chair, SCDs, LUCÍA stockings. At present, the patient's further management will be dependent upon the patient's clinical condition, hemodynamic status and as per recommendation by all the physician involved in the care of the patient. Dictated and electronically signed, not read. Jonah Loyd MD
--- NOTE | 2018-07-20 12:37 | PN ---
DATE: 07/20/2018 SUBJECTIVE: The patient is in bed without shortness of breath, without chest pain. PHYSICAL EXAMINATION: VITAL SIGNS: Blood pressure is 134/72, the heart rates in the 80s. NECK: Negative JVD. LUNGS: Decreased breath sounds. HEART: S1 and S2. EXTREMITIES: Without edema. The right groin site hematoma is unchanged. LABORATORY DATA: Hemoglobin is 9.9. Chemistries, BUN and creatinine are 45 and 0.8. IMPRESSION: 1. Status post bleed post angioplasty from the right groin site. 2. Anemia. 3. Severe chronic obstructive pulmonary disease. 4. Stable post percutaneous transluminal coronary angioplasty and stent of an right coronary artery. 5. Diabetes mellitus. PLAN: Given these findings, we will continue to monitor the right groin site. Antibiotics were started. We will decrease her Lasix from IV to 20 p.o. daily. We will monitor her electrolytes and anemia. Shaheed Handy MD
[2018-07-21] MEDS: Vancomycin 1gm in NS 250ml 1 GM/250 ML BAG IVPB SCH ×2 (01:52→13:05)
[2018-07-21] MEDS: Acetylcysteine 20% Inhal Soln (4ml) IH SCH ×5 (03:08→19:29)
[2018-07-21] MEDS: Levalbuterol 0.63 MG/3 ML Inhal Soln UD IH SCH ×5 (03:09→19:29)
[2018-07-21] MEDS: Aztreonam 1 Gm in NS 100mL 100 ML IVPB SCH ×3 (05:39→21:37)
[2018-07-21 07:05] LABS: EOS % 0.1 % (1.5-5.0); GRAN # 9.93 (1.4-6.5); GRAN % 84.1 % (50.0-68.0); HEMOGLOBIN 9.4 g/dL (12.0-16.0); LYMPH # 1.1 (1.2-3.4); LYMPH % 9.6 % (22.0-35.0); MEAN CELL VOLUME 100.6 fl (80.0-105.0); MEAN CORPUSCULAR HEMOGLOBIN 30.1 pg (25.0-35.0); MEAN CORPUSCULAR HGB CONC 29.9 g/dl (31.0-37.0); MEAN PLATELET VOLUME 10.2 fl (7.0-11.0); MONO # 0.7 (0.1-0.6); MONO % 6.2 % (1.0-6.0); RBC 3.12 10^6/uL (3.5-6.1); RED CELL DISTRIBUTION WIDTH 15.6 % (11.5-14.5); WHITE BLOOD COUNT 11.8 10^3/uL (4.5-11.0)
[2018-07-21 07:12] LABS: ALB/GLOB RATIO 1.2 (1.1-1.8); ALBUMIN 3.2 g/dL (3.0-4.8); BILIRUBIN,DIRECT 0.3 mg/dL (0.0-0.4)
--- NOTE | 2018-07-21 07:33 | CP.PCM.PN ---
<BurksMindy L - Last Filed: 07/21/18 07:45> Subjective - Date & Time of Evaluation Date of Evaluation: 07/21/18 Time of Evaluation: 07:32 - Subjective Subjective: Resident Progress Note for Surgery: Dr. Membreno Patient examined at bedside. No acute events overnight. Patient is resting comfortably in bed, offers no complaints. Dressing changed this AM. Objective - Vital Signs/Intake and Output Vital Signs (last 24 hours): Temp Pulse Resp BP Pulse Ox 97.5 F L 87 20 159/81 H 95 07/21/18 06:00 07/21/18 06:00 07/21/18 06:00 07/21/18 06:00 07/21/18 06:00 Intake and Output: 07/21/18 07/21/18 06:59 18:59 Intake Total 1260 Output Total 900 Balance 360 - Medications Medications: Current Medications Acetaminophen (Tylenol 325mg Tab) 650 mg PO Q6 PRN PRN Reason: TEMP>=99.5F Acetaminophen (Tylenol 650 Mg Supp) 650 mg RC Q6H PRN PRN Reason: TEMP>=99.5F Acetylcysteine (Acetylcysteine 20%) 4 ml IH [id number] [facility] Last Admin: 07/21/18 03:15 Dose: Not Given Arformoterol Tartrate (Brovana) 15 mcg IH [id number] [facility] Last Admin: 07/20/18 21:42 Dose: 15 mcg Ascorbic Acid (Vitamin C 500 Mg Tab) 500 mg PO BID [facility] Last Admin: 07/20/18 18:45 Dose: 500 mg Atorvastatin Calcium (Lipitor) 40 mg PO DIN [facility] Last Admin: 07/20/18 18:45 Dose: 40 mg Clopidogrel Bisulfate (Plavix) 75 mg PO DAILY [facility] Last Admin: 07/20/18 10:43 Dose: 75 mg Diltiazem HCl (Cardizem) 60 mg PO Q8 [facility] Last Admin: 07/21/18 05:39 Dose: 60 mg Docusate Sodium (Colace) 100 mg PO TID [facility] Last Admin: 07/20/18 18:45 Dose: 100 mg Escitalopram Oxalate (Lexapro) 5 mg PO HS [facility] Last Admin: 07/20/18 22:55 Dose: 5 mg Famotidine (Pepcid) 20 mg PO 1000,2200 [facility] Last Admin: 07/20/18 21:47 Dose: 20 mg Furosemide (Lasix) 20 mg IVP DAILY [facility] Heparin Sodium (Porcine) (Heparin) 5,000 units SC Q8H [facility]; Protocol Last Admin: 07/15/18 13:42 Dose: 5,000 units Aztreonam (Azactam 1 Gm) 100 mls @ 100 mls/hr IVPB Q8 [facility]; Protocol Stop: 07/23/18 09:46 Last Admin: 07/21/18 05:39 Dose: 100 mls/hr Doxycycline Hyclate 100 mg/ (Sodium Chloride) 100 mls @ 100 mls/hr IVPB Q12 [facility]; Protocol Last Admin: 07/20/18 22:55 Dose: 100 mls/hr Vancomycin HCl (Vancomycin 1gm) 1 gm in 250 mls @ 167 mls/hr IVPB Q12H [facility]; Protocol Last Admin: 07/21/18 01:52 Dose: 167 mls/hr Levalbuterol HCl (Xopenex) 0.63 mg IH [id number] [facility] Last Admin: 07/21/18 03:15 Dose: Not Given Midodrine (Proamatine) 5 mg PO TID [facility] Last Admin: 07/20/18 18:46 Dose: Not Given Montelukast Sodium (Singulair) 10 mg PO HS [facility] Last Admin: 07/20/18 21:47 Dose: 10 mg Multivitamins/Vitamin C (Multi-Delyn Liquid) 15 ml PO 0800 [facility] Last Admin: 07/20/18 10:42 Dose: 15 ml Ambrisentan [ Letairis] 5 Mg ( Home Med) 5 mg PO DAILY [facility] Last Admin: 07/20/18 10:28 Dose: Not Given Ondansetron HCl (Zofran Inj) 4 mg IVP Q4H PRN PRN Reason: Nausea/Vomiting Oseltamivir Phosphate (Tamiflu Cap) 75 mg PO BID [facility]; Protocol Stop: 07/22/18 11:04 Last Admin: 07/20/18 18:44 Dose: 75 mg Prednisone (Prednisone Tab) 30 mg PO DAILY [facility] Sildenafil Citrate (Revatio) 20 mg PO TID [facility] Last Admin: 07/20/18 18:45 Dose: 20 mg Silver Sulfadiazine (Silvadene 1% 25 Gm) 0 gm TP BID [facility] Last Admin: 07/20/18 18:46 Dose: Not Given - Labs Labs: 07/21/18 06:40 07/20/18 07:40 PT 12.4 SECONDS (9.4-12.5) 07/16/18 08:15 INR 1.08 07/16/18 08:15 APTT 27.5 Seconds (25.1-36.5) 07/16/18 08:15 - Additional Findings Additional findings: - Constitutional Appears: Non-toxic, Chronically Ill - Head Exam Head Exam: NORMOCEPHALIC, ATRAUMATIC - Eye Exam Eye Exam: EOMI - ENT Exam ENT Exam: Mucous Membranes Moist - Respiratory Exam Respiratory Exam: NORMAL BREATHING PATTERN. absent: Accessory Muscle Use, Respiratory Distress - Cardiovascular Exam Cardiovascular Exam: REGULAR RHYTHM. absent: Bradycardia, Tachycardia - GI/Abdominal Exam GI & Abdominal Exam: Soft. absent: Distended, Firm, Guarding, Tenderness - Extremities Exam Additional comments: RLE hematoma soft and improving in size - Neurological Exam Neurological Exam: Alert, Awake - Skin Skin Exam: Intact, Warm Assessment and Plan - Assessment and Plan (Free Text) Assessment: Patient is an 82 year old female with PMH of atrial fibrillation, COPD, pulmonary HTN, diastolic CHF who presented with substernal chest pain, found to have hematoma s/p cardiac cath. Plan: - H/H stable; monitor and transfuse PRN - warm compress 20 min TID - silvadene with dry dressing over RLE hematoma - will continue to follow, may eventually need drainage of hematoma - further management per primary team - further recs per Dr. Haseeb Burks PGY-1 <Mason Membreno - Last Filed: 07/22/18 10:02> Objective - Vital Signs/Intake and Output Vital Signs (last 24 hours): Temp Pulse Resp BP Pulse Ox 97.5 F L 83 19 148/69 98 07/22/18 05:57 07/22/18 05:57 07/22/18 05:57 07/22/18 05:57 07/22/18 05:57 Intake and Output: 07/22/18 07/22/18 06:59 18:59 Intake Total 1030 Output Total 300 Balance 730 - Medications Medications: Current Medications Acetaminophen (Tylenol 325mg Tab) 650 mg PO Q6 PRN PRN Reason: TEMP>=99.5F Acetaminophen (Tylenol 650 Mg Supp) 650 mg RC Q6H PRN PRN Reason: TEMP>=99.5F Acetylcysteine (Acetylcysteine 20%) 4 ml IH [id number] [facility] Last Admin: 07/22/18 07:49 Dose: 4 ml Arformoterol Tartrate (Brovana) 15 mcg IH [id number] [facility] Last Admin: 07/22/18 07:49 Dose: 15 mcg Ascorbic Acid (Vitamin C 500 Mg Tab) 500 mg PO BID [facility] Last Admin: 07/21/18 18:24 Dose: Not Given Atorvastatin Calcium (Lipitor) 40 mg PO DIN [facility] Last Admin: 07/21/18 18:25 Dose: Not Given Clopidogrel Bisulfate (Plavix) 75 mg PO DAILY [facility] Last Admin: 07/21/18 12:56 Dose: 75 mg Diltiazem HCl (Cardizem) 60 mg PO Q8 [facility] Last Admin: 07/21/18 21:31 Dose: 60 mg Docusate Sodium (Colace) 100 mg PO TID [facility] Last Admin: 07/21/18 18:17 Dose: Not Given Escitalopram Oxalate (Lexapro) 5 mg PO HS [facility] Last Admin: 07/21/18 21:35 Dose: 5 mg Famotidine (Pepcid) 20 mg PO 1000,2200 [facility] Last Admin: 07/21/18 21:31 Dose: 20 mg Furosemide (Lasix) 20 mg IVP DAILY [facility] Heparin Sodium (Porcine) (Heparin) 5,000 units SC Q8H [facility]; Protocol Last Admin: 07/15/18 13:42 Dose: 5,000 units Aztreonam (Azactam 1 Gm) 100 mls @ 100 mls/hr IVPB Q8 [facility]; Protocol Stop: 07/23/18 09:46 Last Admin: 07/21/18 21:37 Dose: 100 mls/hr Doxycycline Hyclate 100 mg/ (Sodium Chloride) 100 mls @ 100 mls/hr IVPB Q12 [facility]; Protocol Last Admin: 07/21/18 22:52 Dose: 100 mls/hr Vancomycin HCl (Vancomycin 1gm) 1 gm in 250 mls @ 167 mls/hr IVPB Q12H [facility]; Protocol Last Admin: 07/21/18 13:05 Dose: 167 mls/hr Levalbuterol HCl (Xopenex) 0.63 mg IH [id number] [facility] Last Admin: 07/22/18 07:49 Dose: 0.63 mg Midodrine (Proamatine) 5 mg PO TID [facility] Last Admin: 07/21/18 18:25 Dose: Not Given Montelukast Sodium (Singulair) 10 mg PO HS [facility] Last Admin: 07/21/18 21:36 Dose: 10 mg Multivitamins/Vitamin C (Multi-Delyn Liquid) 15 ml PO 0800 [facility] Last Admin: 07/21/18 09:11 Dose: Not Given Ambrisentan [ Letairis] 5 Mg ( Home Med) 5 mg PO DAILY [facility] Last Admin: 07/21/18 11:04 Dose: Not Given Ondansetron HCl (Zofran Inj) 4 mg IVP Q4H PRN PRN Reason: Nausea/Vomiting Prednisone (Prednisone Tab) 30 mg PO DAILY [facility] Last Admin: 07/21/18 12:57 Dose: 30 mg Sildenafil Citrate (Revatio) 20 mg PO TID [facility] Last Admin: 07/21/18 18:25 Dose: Not Given Silver Sulfadiazine (Silvadene 1% 25 Gm) 0 gm TP BID [facility] Last Admin: 07/21/18 18:18 Dose: Not Given - Labs Labs: 07/22/18 05:30 07/22/18 05:30 PT 12.4 SECONDS (9.4-12.5) 07/16/18 08:15 INR 1.08 07/16/18 08:15 APTT 27.5 Seconds (25.1-36.5) 07/16/18 08:15 Assessment and Plan - Assessment and Plan (Free Text) Plan: Patient was seen, evaluated and examined by me. I agree with the assessment and plan as per the resident's note.
[2018-07-21] MEDS: Arformoterol 15 mcg/2 ml Inh Sol IH SCH ×2 (07:50→19:29)
[2018-07-21 08:11] LABS: ALB/GLOB RATIO 1.3 (1.1-1.8); ALBUMIN 3.2 g/dL (3.0-4.8); ALT/SGPT 59 U/L (7-56); AST/SGOT 45 U/L (14-36); BLOOD UREA NITROGEN 37 mg/dL (7-21); CALCIUM 8.9 mg/dL (8.4-10.5); GFR NON-AFRICAN AMERICAN > 60
[2018-07-21] MEDS: Multi Vitamins 15 mL UD Oral Solution PO SCH ×2 (09:04→09:11)
--- NOTE | 2018-07-21 10:26 | RAD ---
Date of service: 07/21/2018 HISTORY: CHF/PNEUMONIA COMPARISON: 07/10/2018 TECHNIQUE: Chest PA and lateral FINDINGS: LUNGS: Moderate size right-sided pleural effusion and adjacent infiltrate PLEURA: No significant pleural effusion identified. No pneumothorax apparent. CARDIOVASCULAR: Aortic calcification Moderate cardiomegaly no pulmonary vascular congestion. OSSEOUS STRUCTURES: No significant abnormalities. VISUALIZED UPPER ABDOMEN: Normal. OTHER FINDINGS: None. IMPRESSION: Moderate size right-sided pleural effusion and adjacent infiltrate
[2018-07-21] MEDS: Silver Sulfadiazine 1% Cream (25 gm) TP SCH ×2 (10:49→18:18)
[2018-07-21] MEDS: AMBRISENTAN 5 MG PO SCH (11:04)
[2018-07-21] MEDS: Sildenafil 20 MG TAB PO SCH ×3 (11:05→18:25)
--- NOTE | 2018-07-21 11:17 | CP.PCM.APN ---
Subjective - Date & Time of Evaluation Date of Evaluation: 07/21/18 Time of Evaluation: 09:45 - Subjective Subjective: pt seen and examined at bedside, she offers no complaints when questioned Review of Systems - Review of Systems All systems: reviewed and no additional remarkable complaints except Objective - Vital Signs/Intake and Output Vital Signs (last 24 hours): Temp Pulse Resp BP Pulse Ox 97.5 F L 73 20 146/71 95 07/21/18 06:00 07/21/18 10:00 07/21/18 06:00 07/21/18 09:04 07/21/18 06:00 Intake and Output: 07/21/18 07/21/18 06:59 18:59 Intake Total 1260 Output Total 900 Balance 360 - Medications Medications: Current Medications Acetaminophen (Tylenol 325mg Tab) 650 mg PO Q6 PRN PRN Reason: TEMP>=99.5F Acetaminophen (Tylenol 650 Mg Supp) 650 mg RC Q6H PRN PRN Reason: TEMP>=99.5F Acetylcysteine (Acetylcysteine 20%) 4 ml IH [id number] [facility] Last Admin: 07/21/18 07:50 Dose: 4 ml Arformoterol Tartrate (Brovana) 15 mcg IH [id number] [facility] Last Admin: 07/21/18 07:50 Dose: 15 mcg Ascorbic Acid (Vitamin C 500 Mg Tab) 500 mg PO BID [facility] Last Admin: 07/21/18 11:06 Dose: Not Given Atorvastatin Calcium (Lipitor) 40 mg PO DIN [facility] Last Admin: 07/20/18 18:45 Dose: 40 mg Clopidogrel Bisulfate (Plavix) 75 mg PO DAILY [facility] Last Admin: 07/20/18 10:43 Dose: 75 mg Diltiazem HCl (Cardizem) 60 mg PO Q8 [facility] Last Admin: 07/21/18 05:39 Dose: 60 mg Docusate Sodium (Colace) 100 mg PO TID [facility] Last Admin: 07/21/18 11:04 Dose: Not Given Escitalopram Oxalate (Lexapro) 5 mg PO HS [facility] Last Admin: 07/20/18 22:55 Dose: 5 mg Famotidine (Pepcid) 20 mg PO 1000,2200 [facility] Last Admin: 07/21/18 11:04 Dose: Not Given Furosemide (Lasix) 20 mg IVP DAILY [facility] Last Admin: 07/21/18 09:04 Dose: 20 mg Heparin Sodium (Porcine) (Heparin) 5,000 units SC Q8H [facility]; Protocol Last Admin: 07/15/18 13:42 Dose: 5,000 units Aztreonam (Azactam 1 Gm) 100 mls @ 100 mls/hr IVPB Q8 [facility]; Protocol Stop: 07/23/18 09:46 Last Admin: 07/21/18 05:39 Dose: 100 mls/hr Doxycycline Hyclate 100 mg/ (Sodium Chloride) 100 mls @ 100 mls/hr IVPB Q12 [facility]; Protocol Last Admin: 07/21/18 11:06 Dose: Not Given Vancomycin HCl (Vancomycin 1gm) 1 gm in 250 mls @ 167 mls/hr IVPB Q12H [facility]; Protocol Last Admin: 07/21/18 01:52 Dose: 167 mls/hr Levalbuterol HCl (Xopenex) 0.63 mg IH [id number] [facility] Last Admin: 07/21/18 07:50 Dose: 0.63 mg Midodrine (Proamatine) 5 mg PO TID [facility] Last Admin: 07/21/18 11:05 Dose: Not Given Montelukast Sodium (Singulair) 10 mg PO HS [facility] Last Admin: 07/20/18 21:47 Dose: 10 mg Multivitamins/Vitamin C (Multi-Delyn Liquid) 15 ml PO 0800 [facility] Last Admin: 07/21/18 09:11 Dose: Not Given Ambrisentan [ Letairis] 5 Mg ( Home Med) 5 mg PO DAILY [facility] Last Admin: 07/21/18 11:04 Dose: Not Given Ondansetron HCl (Zofran Inj) 4 mg IVP Q4H PRN PRN Reason: Nausea/Vomiting Oseltamivir Phosphate (Tamiflu Cap) 75 mg PO BID [facility]; Protocol Stop: 07/22/18 11:04 Last Admin: 07/21/18 11:06 Dose: Not Given Prednisone (Prednisone Tab) 30 mg PO DAILY [facility] Sildenafil Citrate (Revatio) 20 mg PO TID [facility] Last Admin: 07/21/18 11:05 Dose: Not Given Silver Sulfadiazine (Silvadene 1% 25 Gm) 0 gm TP BID [facility] Last Admin: 07/21/18 10:49 Dose: Not Given - Labs Labs: 07/21/18 06:40 07/21/18 06:40 PT 12.4 SECONDS (9.4-12.5) 07/16/18 08:15 INR 1.08 07/16/18 08:15 APTT 27.5 Seconds (25.1-36.5) 07/16/18 08:15 - Constitutional Appears: No Acute Distress, Chronically Ill - Eye Exam Eye Exam: EOMI Pupil Exam: NORMAL ACCOMODATION - ENT Exam ENT Exam: Normal Exam - Respiratory Exam Respiratory Exam: Decreased Breath Sounds - Cardiovascular Exam Cardiovascular Exam: +S1, +S2 - GI/Abdominal Exam GI & Abdominal Exam: Normal Bowel Sounds - Neurological Exam Neurological Exam: Alert, Awake - Psychiatric Exam Psychiatric exam: Normal Mood - Skin Skin Exam: Dry, Intact Additional comments: right groin ecchomytic Assessment and Plan - Assessment and Plan (Free Text) Plan: 82 yr old white female with pmh sig for copd, severe pul htn, diastolic chf, cellulitis admitted with cp and palps transferred to ICu on 07/13 for closer mgmt of acute hypoxic resp failure s/p high flow 02 , severe resp acidosis and co2 narcosis Impressions Chest X-Ray 07/21/18 07:24 IMPRESSION: Moderate size right-sided pleural effusion and adjacent infiltrate pt is s/p cath with ptca to RCA stenosis then developed large right groin hematoma 07/16 surgical consult Arterial doppler with no pseudoaneurysm but large hematoma ct abd pelvis rev'd #acute hypoxia /respiratory acidosis /hypercapnic resp failure continued ICU monitoring pt weaned off high flow o2 to nC , bipap prn cxr this am- reviewed with resident, moderate sized pleural effusion and adjacent infiltrate #severe pul htn s/p left and right heart cath Revatio regimen 20TID RA mean pressure per cath report 18mmHg noted #new onset AFIB cardizem 60 q8 hrs cardiology consultation and recs noted #Right sided CHF /diastolic chf IV lasix 20 iv daily discuss patient plan with pmd resident, nurse and sw pt accepted to LTACH, awaiting medical clearance with pmd.
--- NOTE | 2018-07-21 12:48 | CP.PCM.PN ---
Subjective - Date & Time of Evaluation Date of Evaluation: 07/21/18 Time of Evaluation: 11:25 - Subjective Subjective: Comfortable in bed, no fevers. Objective - Vital Signs/Intake and Output Vital Signs (last 24 hours): Temp Pulse Resp BP Pulse Ox 98.0 F 87 20 134/72 93 L 07/20/18 06:00 07/20/18 06:46 07/20/18 06:00 07/20/18 10:29 07/20/18 06:00 Intake and Output: 07/20/18 07/20/18 06:59 18:59 Intake Total 240 Output Total 350 Balance -110 - Medications Medications: Current Medications Acetaminophen (Tylenol 325mg Tab) 650 mg PO Q6 PRN PRN Reason: TEMP>=99.5F Acetaminophen (Tylenol 650 Mg Supp) 650 mg RC Q6H PRN PRN Reason: TEMP>=99.5F Acetylcysteine (Acetylcysteine 20%) 4 ml IH [id number] [facility] Last Admin: 07/20/18 07:55 Dose: 4 ml Arformoterol Tartrate (Brovana) 15 mcg IH [id number] [facility] Last Admin: 07/20/18 07:55 Dose: 15 mcg Ascorbic Acid (Vitamin C 500 Mg Tab) 500 mg PO BID [facility] Last Admin: 07/20/18 10:43 Dose: 500 mg Atorvastatin Calcium (Lipitor) 40 mg PO DIN [facility] Last Admin: 07/19/18 17:11 Dose: 40 mg Clopidogrel Bisulfate (Plavix) 75 mg PO DAILY [facility] Last Admin: 07/20/18 10:43 Dose: 75 mg Diltiazem HCl (Cardizem) 60 mg PO Q8 [facility] Last Admin: 07/20/18 06:46 Dose: 60 mg Docusate Sodium (Colace) 100 mg PO TID [facility] Last Admin: 07/20/18 10:43 Dose: 100 mg Escitalopram Oxalate (Lexapro) 5 mg PO HS [facility] Last Admin: 07/19/18 23:21 Dose: 5 mg Famotidine (Pepcid) 20 mg PO 1000,2200 [facility] Last Admin: 07/20/18 10:43 Dose: 20 mg Furosemide (Lasix) 20 mg PO DAILY [facility] Heparin Sodium (Porcine) (Heparin) 5,000 units SC Q8H [facility]; Protocol Last Admin: 07/15/18 13:42 Dose: 5,000 units Aztreonam (Azactam 1 Gm) 100 mls @ 100 mls/hr IVPB Q8 [facility]; Protocol Stop: 07/23/18 09:46 Last Admin: 07/20/18 06:43 Dose: Not Given Doxycycline Hyclate 100 mg/ (Sodium Chloride) 100 mls @ 100 mls/hr IVPB Q12 [facility]; Protocol Last Admin: 07/20/18 10:30 Dose: Not Given Vancomycin HCl (Vancomycin 1gm) 1 gm in 250 mls @ 167 mls/hr IVPB Q12H [facility]; Protocol Last Admin: 07/20/18 01:06 Dose: Not Given Levalbuterol HCl (Xopenex) 0.63 mg IH [id number] [facility] Last Admin: 07/20/18 07:55 Dose: 0.63 mg Midodrine (Proamatine) 5 mg PO TID [facility] Last Admin: 07/20/18 10:29 Dose: Not Given Montelukast Sodium (Singulair) 10 mg PO HS [facility] Last Admin: 07/19/18 23:09 Dose: 10 mg Morphine Sulfate (Morphine) 1 mg IVP Q6H PRN PRN Reason: Pain, severe (8-10) Multivitamins/Vitamin C (Multi-Delyn Liquid) 15 ml PO 0800 [facility] Last Admin: 07/20/18 10:42 Dose: 15 ml Ambrisentan [ Letairis] 5 Mg ( Home Med) 5 mg PO DAILY [facility] Last Admin: 07/20/18 10:28 Dose: Not Given Ondansetron HCl (Zofran Inj) 4 mg IVP Q4H PRN PRN Reason: Nausea/Vomiting Oseltamivir Phosphate (Tamiflu Cap) 75 mg PO BID [facility]; Protocol Stop: 07/22/18 11:04 Last Admin: 07/20/18 10:46 Dose: 75 mg Prednisone (Prednisone Tab) 30 mg PO DAILY [facility] Sildenafil Citrate (Revatio) 20 mg PO TID [facility] Last Admin: 07/20/18 10:43 Dose: 20 mg Silver Sulfadiazine (Silvadene 1% 25 Gm) 0 gm TP BID [facility] Last Admin: 07/19/18 17:11 Dose: 25 gm - Labs Labs: 07/20/18 07:40 07/20/18 07:40 PT 12.4 SECONDS (9.4-12.5) 07/16/18 08:15 INR 1.08 07/16/18 08:15 APTT 27.5 Seconds (25.1-36.5) 07/16/18 08:15 - Constitutional Appears: Chronically Ill - Head Exam Head Exam: NORMAL INSPECTION - Respiratory Exam Respiratory Exam: Decreased Breath Sounds - Cardiovascular Exam Cardiovascular Exam: +S1, +S2 - GI/Abdominal Exam GI & Abdominal Exam: Soft. absent: Tenderness Assessment and Plan - Assessment and Plan (Free Text) Plan: Assessment consider bilateral lower lobe HCAP in this patient presenting acute myocardial infarction S/P cardiac cath positive influenza A titers, either previous infection or response to influenza vaccination right groin hematoma after cardiac cath history of right leg cellulitis with Pseudomonas in this patient with probable chronic venous stasis, S/P treatment with antibiotics COPD diastolic CHF pulmonary HTN Plan continue Vancomycin, Aztreonam and Doxycycline day 6 - target up to 7 days of antibiotics; cultures have been negative; nasal MRSA screen is positive Influenza antibody titers are not used for the diagnosis of acute Influenza infection will continue to monitor clinically follow up further plans for the right groin hematoma follow up further recommendations of Cardiology
--- NOTE | 2018-07-21 14:02 | PN ---
DATE: 07/21/2018 CARDIOLOGY FOLLOWUP SUBJECTIVE: The patient is comfortable in bed. PHYSICAL EXAMINATION: VITAL SIGNS: Blood pressure varies from 146 to 151 systolic, heart rates in the 80s to 90s, normal sinus rhythm. NECK: Negative JVD. LUNGS: Decreased breath sounds. HEART: S1, S2. EXTREMITIES: The right groin site is improving. LABORATORY DATA: Hemoglobin is 9.4. Chemistries, BUN and creatinine 37 and 0.6. IMPRESSION: 1. Status post percutaneous transluminal coronary angioplasty and stent of an right coronary artery. 2. Severe pulmonary hypertension. 3. Status post right groin bleed. 4. Peripheral vascular disease. 5. Severe pulmonary hypertension. 6. Chronic obstructive pulmonary disease. Given these findings, the patient's hemoglobin has remained stable. Her right groin site is improved. We will continue her Plavix. We will decrease her Lasix to 20 daily. Shaheed Handy MD
--- NOTE | 2018-07-21 14:57 | CP.PCM.PN ---
Subjective - Date & Time of Evaluation Date of Evaluation: 07/21/18 Time of Evaluation: 07:10 - Subjective Subjective: Patient seen and examined at bedside in no acute distress. Patient states she wants to be left alone. No acute events overnight. - Constitutional Appears: Non-toxic - Head Exam Head Exam: ATRAUMATIC - Eye Exam Eye Exam: Normal appearance - ENT Exam ENT Exam: Mucous Membranes Dry - Respiratory Exam Respiratory Exam: Decreased Breath Sounds - Cardiovascular Exam Cardiovascular Exam: +S1, +S2 - GI/Abdominal Exam GI & Abdominal Exam: Soft - Neurological Exam Neurological Exam: Awake - Skin Skin Exam: Dry. RLE hematoma decreasing in size Objective - Vital Signs/Intake and Output Vital Signs (last 24 hours): Temp Pulse Resp BP Pulse Ox 97.5 F L 73 20 151/66 H 96 07/21/18 06:00 07/21/18 14:14 07/21/18 12:00 07/21/18 13:00 07/21/18 12:00 Intake and Output: 07/21/18 07/21/18 06:59 18:59 Intake Total 1260 Output Total 900 Balance 360 - Medications Medications: Current Medications Acetaminophen (Tylenol 325mg Tab) 650 mg PO Q6 PRN PRN Reason: TEMP>=99.5F Acetaminophen (Tylenol 650 Mg Supp) 650 mg RC Q6H PRN PRN Reason: TEMP>=99.5F Acetylcysteine (Acetylcysteine 20%) 4 ml IH [id number] [facility] Last Admin: 07/21/18 14:03 Dose: 4 ml Arformoterol Tartrate (Brovana) 15 mcg IH [id number] [facility] Last Admin: 07/21/18 07:50 Dose: 15 mcg Ascorbic Acid (Vitamin C 500 Mg Tab) 500 mg PO BID [facility] Last Admin: 07/21/18 11:06 Dose: Not Given Atorvastatin Calcium (Lipitor) 40 mg PO DIN [facility] Last Admin: 07/20/18 18:45 Dose: 40 mg Clopidogrel Bisulfate (Plavix) 75 mg PO DAILY [facility] Last Admin: 07/21/18 12:56 Dose: 75 mg Diltiazem HCl (Cardizem) 60 mg PO Q8 [facility] Last Admin: 07/21/18 13:00 Dose: 60 mg Docusate Sodium (Colace) 100 mg PO TID [facility] Last Admin: 07/21/18 13:00 Dose: 100 mg Escitalopram Oxalate (Lexapro) 5 mg PO HS [facility] Last Admin: 07/20/18 22:55 Dose: 5 mg Famotidine (Pepcid) 20 mg PO 1000,2200 [facility] Last Admin: 07/21/18 11:04 Dose: Not Given Furosemide (Lasix) 20 mg IVP DAILY [facility] Heparin Sodium (Porcine) (Heparin) 5,000 units SC Q8H [facility]; Protocol Last Admin: 07/15/18 13:42 Dose: 5,000 units Aztreonam (Azactam 1 Gm) 100 mls @ 100 mls/hr IVPB Q8 [facility]; Protocol Stop: 07/23/18 09:46 Last Admin: 07/21/18 05:39 Dose: 100 mls/hr Doxycycline Hyclate 100 mg/ (Sodium Chloride) 100 mls @ 100 mls/hr IVPB Q12 [facility]; Protocol Last Admin: 07/21/18 11:06 Dose: Not Given Vancomycin HCl (Vancomycin 1gm) 1 gm in 250 mls @ 167 mls/hr IVPB Q12H [facility]; Protocol Last Admin: 07/21/18 13:05 Dose: 167 mls/hr Levalbuterol HCl (Xopenex) 0.63 mg IH [id number] [facility] Last Admin: 07/21/18 14:03 Dose: 0.63 mg Midodrine (Proamatine) 5 mg PO TID [facility] Last Admin: 07/21/18 12:59 Dose: Not Given Montelukast Sodium (Singulair) 10 mg PO [facility] Last Admin: 07/20/18 21:47 Dose: 10 mg Multivitamins/Vitamin C (Multi-Delyn Liquid) 15 ml PO 0800 [facility] Last Admin: 07/21/18 09:11 Dose: Not Given Ambrisentan [ Letairis] 5 Mg ( Home Med) 5 mg PO DAILY [facility] Last Admin: 07/21/18 11:04 Dose: Not Given Ondansetron HCl (Zofran Inj) 4 mg IVP Q4H PRN PRN Reason: Nausea/Vomiting Prednisone (Prednisone Tab) 30 mg PO DAILY [facility] Last Admin: 07/21/18 12:57 Dose: 30 mg Sildenafil Citrate (Revatio) 20 mg PO TID [facility] Last Admin: 07/21/18 13:00 Dose: 20 mg Silver Sulfadiazine (Silvadene 1% 25 Gm) 0 gm TP BID [facility] Last Admin: 07/21/18 10:49 Dose: Not Given - Labs Labs: 07/21/18 06:40 07/21/18 06:40 PT 12.4 SECONDS (9.4-12.5) 07/16/18 08:15 INR 1.08 07/16/18 08:15 APTT 27.5 Seconds (25.1-36.5) 07/16/18 08:15 Assessment and Plan - Assessment and Plan (Free Text) Assessment: Patient is an 82 F with history of new onset atrial fibrillation, severe pulmonary hypertension with RVSP 145, right sided diastolic congestive heart failure presenting with hypercapnic respiratory failure Pleural effusion -IR consulted for evaluation Hematoma right thigh -Continue with warm compresses and silvadene as per surgery -Platelet count remains stable CAD s/p PCI with stent placement -continue with aspirin and plavix Sepsis secondary to bilateral HAP -Continue with aztreonam, doxycycline, and vancomycin day #5 Influenza A -tamiflu dc/'ed as per ID Atrial fibrillation -Continue with diltiazem 60 mg q8H Severe COPD -Continue supplemental oxygen, mucomyst, brovana, xopenex, singulair -Will begin tapering steroids from 40 mg to 30 mg Severe Pulmonary hypertension -Continue with Sildenafil 20 mg PO TID -Continue with Ambrisentan 5 mg Diastolic congestive heart failure -continue with lasix 20 mg IVP daily Thrombocytopenia -Plt count stable, continue to monitor platelet count Depression -Continue with lexapro 5 mg qHS GI/DVT prophlyaxis: Continue with pepcid and SCDs Dispo: :accepted to [facility]ACH at [place], awaiting eval from IR before discharge .
--- NOTE | 2018-07-21 16:07 | PN ---
DATE: 07/21/2018 SUBJECTIVE: The patient is seen in room 262, bed 1. Overnight nurse's notes were reviewed. No adverse events were documented or reported or notified. PHYSICAL EXAMINATION: VITAL SIGNS: T-max 97.5. Telemetry shows atrial fibrillation, heart rate 87-89, 91, 92; blood pressure 159/81, respirations 20, O2 sat 95%. HEENT: Head examination, normocephalic, atraumatic. HEENT examination shows pinkish pale conjunctivae. Anicteric sclerae. No oropharyngeal lesion. NECK: No neck rigidity. CHEST: Kyphosis. LUNGS: Shows decreased breath sound at the bases. Positive rhonchi bilaterally. CARDIOVASCULAR: S1, S2, irregular rhythm. Positive systolic murmur left sternal border, right second intercostal space, left second intercostal space. ABDOMEN: Soft. Positive bowel sounds. No palpable hepatosplenomegaly noted. Positive right groin hematoma noted with discoloration and ecchymosis and discoloration of the right groin and right upper thigh hematoma noted. EXTREMITIES: Shows positive trace swelling of the lower extremity. MUSCULOSKELETAL: Examination is as per the body mass index. NEUROLOGIC: The patient is alert, awake, responsive. VASCULAR: Examination palpable pulses. Gait examination is not tested. DIAGNOSTICS: 07/21/2018, WBC 11.8, hemoglobin/hematocrit 9.4/31.4, platelet 154 and 169,000. Sodium 143, potassium 4.2, chloride 101, CO2 41, BUN 37, creatinine 0.6, glucose 134, AST 50 and ALT 59. Calcium, magnesium phosphorus are within normal limits. The patient's chest x-ray PA and lateral ordered, the results are pending. IMPRESSION AND PLAN: 1. New-onset atrial fibrillation. 2. Acute recurrent right-sided diastolic congestive heart failure with severe pulmonary hypertension and severe tricuspid regurgitation. 3. Status post acute hypoxic, hypercarbic respiratory failure with respiratory acidosis, hypercapnia and CO2 narcosis. 4. Transaminitis. 5. Post cardiac catheterization, right groin, right upper thigh hematoma with acute blood loss anemia. 6. Status post packed red blood cell transfusion. 7. Leukocytosis with granulocytosis. 8. Multilobar bilateral healthcare-associated pneumonia. 9. Large bilateral pleural effusion. 10. Transient thrombocytopenia. 11. Metabolic alkalosis. 12. Prerenal kidney injury. 13. Depression. 14. Gait dysfunction. 15. Deconditioning. 16. Right-sided diastolic congestive heart failure. 17. Bilateral atelectasis. 18. Bilateral lower extremity venous stasis secondary to right-sided diastolic congestive heart failure and severe advanced pulmonary hypertension. PLAN: At this time, the patient is presently still on IV antibiotics with Azactam, doxycycline, and vancomycin. We are awaiting for discontinuation of the IV antibiotics by the Infectious Disease. Repeat chest x-ray PA and lateral results will be followed. The patient will be continued on IV low-dose diuretics, Lasix 20 mg IV daily. The patient will be continued on GI, DVT prophylaxis. The patient will be continued on nebulizer treatment. The patient will be continued on chest PT, incentive spirometry, out of bed to chair, physical therapy, occupational therapy. Once the patient's IV antibiotics are discontinued, the patient will be considered for discharge, as per the recommendations and request of the patient's family. The patient's code status is DNR/DNI. The patient's overall prognosis is guarded to poor. Family aware. The patient's current medications will be continued as per the MAR of today which was reviewed. Jonah Loyd MD
[2018-07-22] MEDS: Acetylcysteine 20% Inhal Soln (4ml) IH SCH ×4 (01:00→20:31)
[2018-07-22] MEDS: Levalbuterol 0.63 MG/3 ML Inhal Soln UD IH SCH ×4 (01:00→20:31)
[2018-07-22 07:10] LABS: EOS % 0.2 % (1.5-5.0); GRAN # 9.95 (1.4-6.5); GRAN % 83.8 % (50.0-68.0); HEMOGLOBIN 9.8 g/dL (12.0-16.0); LYMPH # 1.3 (1.2-3.4); LYMPH % 11.3 % (22.0-35.0); MEAN CELL VOLUME 101.9 fl (80.0-105.0); MEAN CORPUSCULAR HEMOGLOBIN 30.2 pg (25.0-35.0); MEAN CORPUSCULAR HGB CONC 29.7 g/dl (31.0-37.0); MONO # 0.6 (0.1-0.6); MONO % 4.7 % (1.0-6.0); RBC 3.24 10^6/uL (3.5-6.1); RED CELL DISTRIBUTION WIDTH 15.6 % (11.5-14.5); WHITE BLOOD COUNT 11.9 10^3/uL (4.5-11.0)
[2018-07-22 07:29] LABS: ALB/GLOB RATIO 1.3 (1.1-1.8); ALBUMIN 3.3 g/dL (3.0-4.8); ALT/SGPT 58 U/L (7-56); AST/SGOT 46 U/L (14-36); BILIRUBIN,DIRECT 0.3 mg/dL (0.0-0.4); BLOOD UREA NITROGEN 33 mg/dL (7-21); CALCIUM 9.1 mg/dL (8.4-10.5); GFR NON-AFRICAN AMERICAN > 60
[2018-07-22] MEDS: Arformoterol 15 mcg/2 ml Inh Sol IH SCH ×2 (07:49→20:31)
[2018-07-22] MEDS: Multi Vitamins 15 mL UD Oral Solution PO SCH (08:00)
--- NOTE | 2018-07-22 09:41 | CP.PCM.PN ---
<Mindy Burks L - Last Filed: 07/22/18 10:05> Subjective - Date & Time of Evaluation Date of Evaluation: 07/22/18 Time of Evaluation: 09:40 - Subjective Subjective: Resident Progress Note for Surgery: Dr. Membreno Patient examined at bedside. Afib noted on quality assurance monitor chassis overnight per nursing. Patient offers no complaints. Dressing changed this AM. Objective - Vital Signs/Intake and Output Vital Signs (last 24 hours): Temp Pulse Resp BP Pulse Ox 97.5 F L 83 19 148/69 98 07/22/18 05:57 07/22/18 05:57 07/22/18 05:57 07/22/18 05:57 07/22/18 05:57 Intake and Output: 07/22/18 07/22/18 06:59 18:59 Intake Total 1030 Output Total 300 Balance 730 - Medications Medications: Current Medications Acetaminophen (Tylenol 325mg Tab) 650 mg PO Q6 PRN PRN Reason: TEMP>=99.5F Acetaminophen (Tylenol 650 Mg Supp) 650 mg RC Q6H PRN PRN Reason: TEMP>=99.5F Acetylcysteine (Acetylcysteine 20%) 4 ml IH [id number] [facility] Last Admin: 07/22/18 07:49 Dose: 4 ml Arformoterol Tartrate (Brovana) 15 mcg IH [id number] [facility] Last Admin: 07/22/18 07:49 Dose: 15 mcg Ascorbic Acid (Vitamin C 500 Mg Tab) 500 mg PO BID [facility] Last Admin: 07/21/18 18:24 Dose: Not Given Atorvastatin Calcium (Lipitor) 40 mg PO DIN [facility] Last Admin: 07/21/18 18:25 Dose: Not Given Clopidogrel Bisulfate (Plavix) 75 mg PO DAILY [facility] Last Admin: 07/21/18 12:56 Dose: 75 mg Diltiazem HCl (Cardizem) 60 mg PO Q8 [facility] Last Admin: 07/21/18 21:31 Dose: 60 mg Docusate Sodium (Colace) 100 mg PO TID [facility] Last Admin: 07/21/18 18:17 Dose: Not Given Escitalopram Oxalate (Lexapro) 5 mg PO HS [facility] Last Admin: 07/21/18 21:35 Dose: 5 mg Famotidine (Pepcid) 20 mg PO 1000,2200 [facility] Last Admin: 07/21/18 21:31 Dose: 20 mg Furosemide (Lasix) 20 mg IVP DAILY [facility] Heparin Sodium (Porcine) (Heparin) 5,000 units SC Q8H [facility]; Protocol Last Admin: 07/15/18 13:42 Dose: 5,000 units Aztreonam (Azactam 1 Gm) 100 mls @ 100 mls/hr IVPB Q8 [facility]; Protocol Stop: 07/23/18 09:46 Last Admin: 07/21/18 21:37 Dose: 100 mls/hr Doxycycline Hyclate 100 mg/ (Sodium Chloride) 100 mls @ 100 mls/hr IVPB Q12 [facility]; Protocol Last Admin: 07/21/18 22:52 Dose: 100 mls/hr Vancomycin HCl (Vancomycin 1gm) 1 gm in 250 mls @ 167 mls/hr IVPB Q12H [facility]; Protocol Last Admin: 07/21/18 13:05 Dose: 167 mls/hr Levalbuterol HCl (Xopenex) 0.63 mg IH [id number] [facility] Last Admin: 07/22/18 07:49 Dose: 0.63 mg Midodrine (Proamatine) 5 mg PO TID [facility] Last Admin: 07/21/18 18:25 Dose: Not Given Montelukast Sodium (Singulair) 10 mg PO HS [facility] Last Admin: 07/21/18 21:36 Dose: 10 mg Multivitamins/Vitamin C (Multi-Delyn Liquid) 15 ml PO 0800 [facility] Last Admin: 07/21/18 09:11 Dose: Not Given Ambrisentan [ Letairis] 5 Mg ( Home Med) 5 mg PO DAILY [facility] Last Admin: 07/21/18 11:04 Dose: Not Given Ondansetron HCl (Zofran Inj) 4 mg IVP Q4H PRN PRN Reason: Nausea/Vomiting Prednisone (Prednisone Tab) 30 mg PO DAILY [facility] Last Admin: 07/21/18 12:57 Dose: 30 mg Sildenafil Citrate (Revatio) 20 mg PO TID [facility] Last Admin: 07/21/18 18:25 Dose: Not Given Silver Sulfadiazine (Silvadene 1% 25 Gm) 0 gm TP BID [facility] Last Admin: 07/21/18 18:18 Dose: Not Given - Labs Labs: 07/22/18 05:30 07/22/18 05:30 PT 12.4 SECONDS (9.4-12.5) 07/16/18 08:15 INR 1.08 07/16/18 08:15 APTT 27.5 Seconds (25.1-36.5) 07/16/18 08:15 - Additional Findings Additional findings: - Constitutional Appears: Non-toxic, Chronically Ill - Head Exam Head Exam: NORMOCEPHALIC, ATRAUMATIC - Eye Exam Eye Exam: EOMI - ENT Exam ENT Exam: Mucous Membranes Moist - Respiratory Exam Respiratory Exam: NORMAL BREATHING PATTERN. absent: Accessory Muscle Use, Respiratory Distress - Cardiovascular Exam Cardiovascular Exam: REGULAR RHYTHM. absent: Bradycardia, Tachycardia - GI/Abdominal Exam GI & Abdominal Exam: Soft. absent: Distended, Firm, Guarding, Tenderness - Extremities Exam Additional comments: RLE hematoma soft, decreasing in size dressing C/D/I - Neurological Exam Neurological Exam: Alert, Awake - Skin Skin Exam: Intact, Warm Assessment and Plan - Assessment and Plan (Free Text) Assessment: Patient is an 82 year old female with PMH of atrial fibrillation, COPD, pulmonary HTN, diastolic CHF who presented with substernal chest pain, found to have hematoma s/p cardiac cath, now transferred out of ICU. Plan: - s/p 4 units pRBCs total - currently hemodynamically stable - continue to monitor and transfuse PRN - warm compress 20 min TID - silvadene with dry dressing over RLE hematoma - may eventually need drainage of hematoma - further management per primary team - further recs per Dr. Haseeb Burks PGY-1 <Mason Membreno - Last Filed: 07/22/18 10:50> Objective - Vital Signs/Intake and Output Vital Signs (last 24 hours): Temp Pulse Resp BP Pulse Ox 97.5 F L 83 19 148/69 98 07/22/18 05:57 07/22/18 05:57 07/22/18 05:57 07/22/18 05:57 07/22/18 05:57 Intake and Output: 07/22/18 07/22/18 06:59 18:59 Intake Total 1030 Output Total 300 Balance 730 - Medications Medications: Current Medications Acetaminophen (Tylenol 325mg Tab) 650 mg PO Q6 PRN PRN Reason: TEMP>=99.5F Acetaminophen (Tylenol 650 Mg Supp) 650 mg RC Q6H PRN PRN Reason: TEMP>=99.5F Acetylcysteine (Acetylcysteine 20%) 4 ml IH [id number] [facility] Last Admin: 07/22/18 07:49 Dose: 4 ml Arformoterol Tartrate (Brovana) 15 mcg IH [id number] [facility] Last Admin: 07/22/18 07:49 Dose: 15 mcg Ascorbic Acid (Vitamin C 500 Mg Tab) 500 mg PO BID [facility] Last Admin: 07/21/18 18:24 Dose: Not Given Atorvastatin Calcium (Lipitor) 40 mg PO DIN [facility] Last Admin: 07/21/18 18:25 Dose: Not Given Clopidogrel Bisulfate (Plavix) 75 mg PO DAILY [facility] Last Admin: 07/21/18 12:56 Dose: 75 mg Diltiazem HCl (Cardizem) 60 mg PO Q8 [facility] Last Admin: 07/21/18 21:31 Dose: 60 mg Docusate Sodium (Colace) 100 mg PO TID [facility] Last Admin: 07/21/18 18:17 Dose: Not Given Escitalopram Oxalate (Lexapro) 5 mg PO HS [facility] Last Admin: 07/21/18 21:35 Dose: 5 mg Famotidine (Pepcid) 20 mg PO 1000,2200 [facility] Last Admin: 07/21/18 21:31 Dose: 20 mg Furosemide (Lasix) 20 mg IVP DAILY [facility] Heparin Sodium (Porcine) (Heparin) 5,000 units SC Q8H [facility]; Protocol Last Admin: 07/15/18 13:42 Dose: 5,000 units Aztreonam (Azactam 1 Gm) 100 mls @ 100 mls/hr IVPB Q8 [facility]; Protocol Stop: 07/23/18 09:46 Last Admin: 07/21/18 21:37 Dose: 100 mls/hr Doxycycline Hyclate 100 mg/ (Sodium Chloride) 100 mls @ 100 mls/hr IVPB Q12 [facility]; Protocol Last Admin: 07/21/18 22:52 Dose: 100 mls/hr Vancomycin HCl (Vancomycin 1gm) 1 gm in 250 mls @ 167 mls/hr IVPB Q12H [facility]; Protocol Last Admin: 07/21/18 13:05 Dose: 167 mls/hr Levalbuterol HCl (Xopenex) 0.63 mg IH [id number] [facility] Last Admin: 07/22/18 07:49 Dose: 0.63 mg Midodrine (Proamatine) 5 mg PO TID [facility] Last Admin: 07/21/18 18:25 Dose: Not Given Montelukast Sodium (Singulair) 10 mg PO HS [facility] Last Admin: 07/21/18 21:36 Dose: 10 mg Multivitamins/Vitamin C (Multi-Delyn Liquid) 15 ml PO 0800 [facility] Last Admin: 07/21/18 09:11 Dose: Not Given Ambrisentan [ Letairis] 5 Mg ( Home Med) 5 mg PO DAILY [facility] Last Admin: 07/21/18 11:04 Dose: Not Given Ondansetron HCl (Zofran Inj) 4 mg IVP Q4H PRN PRN Reason: Nausea/Vomiting Prednisone (Prednisone Tab) 30 mg PO DAILY [facility] Last Admin: 07/21/18 12:57 Dose: 30 mg Sildenafil Citrate (Revatio) 20 mg PO TID [facility] Last Admin: 07/21/18 18:25 Dose: Not Given Silver Sulfadiazine (Silvadene 1% 25 Gm) 0 gm TP BID [facility] Last Admin: 07/21/18 18:18 Dose: Not Given - Labs Labs: 07/22/18 05:30 07/22/18 05:30 PT 12.4 SECONDS (9.4-12.5) 07/16/18 08:15 INR 1.08 07/16/18 08:15 APTT 27.5 Seconds (25.1-36.5) 07/16/18 08:15 Assessment and Plan - Assessment and Plan (Free Text) Plan: Patient was seen, evaluated and examined by me. I agree with the assessment and plan as per the resident's note.
[2018-07-22] MEDS: Silver Sulfadiazine 1% Cream (25 gm) TP SCH ×2 (11:06→17:29)
[2018-07-22] MEDS: Sildenafil 20 MG TAB PO SCH ×3 (11:14→17:34)
[2018-07-22] MEDS: AMBRISENTAN 5 MG PO SCH (11:14)
[2018-07-22] MEDS: Aztreonam 1 Gm in NS 100mL 100 ML IVPB SCH ×2 (13:17→22:29)
--- NOTE | 2018-07-22 14:19 | PN ---
DATE: 07/22/2018 SUBJECTIVE: The patient is in room 262, bed 1. Overnight, last 24-hour nurse's notes were reviewed. The patient had episodic desaturation for which the patient required BiPAP, but the patient kept removing the BiPAP. Whenever the patient had a BiPAP on, the O2 sat went up from 80% to 93 and mid 90%. PHYSICAL EXAMINATION VITAL SIGNS: T-max 97.5. Telemetry shows atrial fibrillation. Heart rate 83, 88; blood pressure 148/69; respirations 19; O2 sat 98%. HEENT AND NECK: Head: Normocephalic, atraumatic. HEENT examination shows pinkish pale conjunctivae. Anicteric sclerae. No oropharyngeal lesion. No neck rigidity. CHEST: Kyphosis. Decreased breath sound at the bases, right more than the left. Positive crepts and rhonchi noted bilaterally. CARDIOVASCULAR: S1, S2, irregular rhythm. Positive systolic murmur left sternal border, right second intercostal space, left second intercostal space. ABDOMEN: Soft. Positive bowel sounds. No palpable hepatosplenomegaly. GENITALIA: Female. EXTREMITIES: Positive right upper thigh hematoma noted. Positive dressing noted. Extremity shows positive upper extremity swelling noted bilaterally. Positive trace swelling of the lower extremity noted. MUSCULOSKELETAL: As per the body mass index. NEUROLOGIC: The patient is alert, awake, responsive. He is able to move upper and lower extremities without assistance. Gait examination is deferred. The patient has been approached by physical therapy couple of occasions. The patient has not been able to do physical therapy. DIAGNOSTICS: 07/22/2018, WBC 11.9, hemoglobin/hematocrit 9.8 and 33.0, platelets 156. Granulocytes 84% segs. Sodium 147, potassium 4.1, chloride 99, CO2 of 45, BUN 33, creatinine 0.7, glucose 112, calcium 9.1, phosphorus 3.2, magnesium 2.0. AST 46, ALT 58. IMPRESSION AND PLAN 1. Status post acute hypoxic hypercarbic respiratory failure with CO2 narcosis and respiratory acidosis. 2. Large bilateral pleural effusion, right more than the left. 3. Anemia. 4. Leukocytosis with granulocytosis. 5. Thrombocytopenia. 6. Metabolic alkalosis. 7. Prerenal kidney injury. 8. Transaminitis. 9. BiPAP requiring hypercarbic respiratory failure. 10. Severe pulmonary hypertension with right ventricular systolic pressure greater than 145. 11. Single-vessel coronary artery disease status post angioplasty and stent placement of the right coronary artery with bare-metal stent. 12. Post-cardiac catheterization, right groin, right upper thigh hematoma. 13. Acute blood loss anemia secondary to right upper thigh hematoma. 14. Status post packed red blood cell transfusion x4. 15. Depression. 16. Chronic obstructive pulmonary disease. 17. New-onset atrial fibrillation. 18. History of hypotension. PLAN: 1. At this time, the patient is continued on IV antibiotics as per Infectious Disease recommendation and duration. We are awaiting further Infectious Disease recommendations regarding the discontinuation date of IV antibiotics. The patient has been requested to be seen by Dr. Shaheed Burden from Interventional Radiology regarding possible thoracentesis of the pleural effusion. The patient will be reordered BiPAP. The patient has been encouraged to use and educated to use BiPAP to prevent respiratory failure. The patient has been advised and encouraged to be out of bed to chair. The patient has been encouraged to participate with physical therapy, occupational therapy, ambulation therapy. The patient's current medications will be continued as per the MAR. At this time, plan today, awaiting for Interventional Radiology for a possible thoracentesis of the pleural effusion. 2. Awaiting Infectious Disease recommendations regarding the discontinuation date of the IV antibiotics. Once the patient's IV antibiotics are discontinued, and after the patient has underwent right thoracentesis and if the patient stays stable post thoracentesis and post discontinuation of the IV antibiotics, the patient will be considered for discharge. Dictated and electronically signed, not read. Jonah Loyd MD
[2018-07-22] MEDS: Vancomycin 1gm in NS 250ml 1 GM/250 ML BAG IVPB SCH (15:08)
--- NOTE | 2018-07-22 15:47 | CP.PCM.PN ---
Subjective - Date & Time of Evaluation Date of Evaluation: 07/22/18 Time of Evaluation: 10:00 - Subjective Subjective: No fevers, not in distress, no nausea, no SOB at rest. Objective - Vital Signs/Intake and Output Vital Signs (last 24 hours): Temp Pulse Resp BP Pulse Ox 97.5 F L 73 20 146/71 95 07/21/18 06:00 07/21/18 10:00 07/21/18 06:00 07/21/18 09:04 07/21/18 06:00 Intake and Output: 07/21/18 07/21/18 06:59 18:59 Intake Total 1260 Output Total 900 Balance 360 - Medications Medications: Current Medications Acetaminophen (Tylenol 325mg Tab) 650 mg PO Q6 PRN PRN Reason: TEMP>=99.5F Acetaminophen (Tylenol 650 Mg Supp) 650 mg RC Q6H PRN PRN Reason: TEMP>=99.5F Acetylcysteine (Acetylcysteine 20%) 4 ml IH [id number] [facility] Last Admin: 07/21/18 07:50 Dose: 4 ml Arformoterol Tartrate (Brovana) 15 mcg IH [id number] [facility] Last Admin: 07/21/18 07:50 Dose: 15 mcg Ascorbic Acid (Vitamin C 500 Mg Tab) 500 mg PO BID [facility] Last Admin: 07/21/18 11:06 Dose: Not Given Atorvastatin Calcium (Lipitor) 40 mg PO DIN [facility] Last Admin: 07/20/18 18:45 Dose: 40 mg Clopidogrel Bisulfate (Plavix) 75 mg PO DAILY [facility] Last Admin: 07/20/18 10:43 Dose: 75 mg Diltiazem HCl (Cardizem) 60 mg PO Q8 [facility] Last Admin: 07/21/18 05:39 Dose: 60 mg Docusate Sodium (Colace) 100 mg PO TID [facility] Last Admin: 07/21/18 11:04 Dose: Not Given Escitalopram Oxalate (Lexapro) 5 mg PO HS [facility] Last Admin: 07/20/18 22:55 Dose: 5 mg Famotidine (Pepcid) 20 mg PO 1000,2200 [facility] Last Admin: 07/21/18 11:04 Dose: Not Given Furosemide (Lasix) 40 mg IVP DAILY [facility] Heparin Sodium (Porcine) (Heparin) 5,000 units SC Q8H [facility]; Protocol Last Admin: 07/15/18 13:42 Dose: 5,000 units Aztreonam (Azactam 1 Gm) 100 mls @ 100 mls/hr IVPB Q8 [facility]; Protocol Stop: 07/23/18 09:46 Last Admin: 07/21/18 05:39 Dose: 100 mls/hr Doxycycline Hyclate 100 mg/ (Sodium Chloride) 100 mls @ 100 mls/hr IVPB Q12 [facility]; Protocol Last Admin: 07/21/18 11:06 Dose: Not Given Vancomycin HCl (Vancomycin 1gm) 1 gm in 250 mls @ 167 mls/hr IVPB Q12H [facility]; Protocol Last Admin: 07/21/18 01:52 Dose: 167 mls/hr Levalbuterol HCl (Xopenex) 0.63 mg IH [id number] [facility] Last Admin: 07/21/18 07:50 Dose: 0.63 mg Midodrine (Proamatine) 5 mg PO TID [facility] Last Admin: 07/21/18 11:05 Dose: Not Given Montelukast Sodium (Singulair) 10 mg PO HS [facility] Last Admin: 07/20/18 21:47 Dose: 10 mg Multivitamins/Vitamin C (Multi-Delyn Liquid) 15 ml PO 0800 [facility] Last Admin: 07/21/18 09:11 Dose: Not Given Ambrisentan [ Letairis] 5 Mg ( Home Med) 5 mg PO DAILY [facility] Last Admin: 07/21/18 11:04 Dose: Not Given Ondansetron HCl (Zofran Inj) 4 mg IVP Q4H PRN PRN Reason: Nausea/Vomiting Prednisone (Prednisone Tab) 30 mg PO DAILY [facility] Sildenafil Citrate (Revatio) 20 mg PO TID [facility] Last Admin: 07/21/18 11:05 Dose: Not Given Silver Sulfadiazine (Silvadene 1% 25 Gm) 0 gm TP BID [facility] Last Admin: 07/21/18 10:49 Dose: Not Given - Labs Labs: 07/21/18 06:40 07/21/18 06:40 PT 12.4 SECONDS (9.4-12.5) 07/16/18 08:15 INR 1.08 07/16/18 08:15 APTT 27.5 Seconds (25.1-36.5) 07/16/18 08:15 - Constitutional Appears: Chronically Ill - Head Exam Head Exam: NORMAL INSPECTION - Respiratory Exam Respiratory Exam: Decreased Breath Sounds - Cardiovascular Exam Cardiovascular Exam: +S1, +S2 - GI/Abdominal Exam GI & Abdominal Exam: Soft. absent: Tenderness Assessment and Plan - Assessment and Plan (Free Text) Plan: Assessment consider bilateral lower lobe HCAP in this patient presenting acute myocardial infarction S/P cardiac cath positive influenza A titers, either previous infection or response to influenza vaccination right groin hematoma after cardiac cath history of right leg cellulitis with Pseudomonas in this patient with probable chronic venous stasis, S/P treatment with antibiotics COPD diastolic CHF pulmonary HTN Plan continue Vancomycin, Aztreonam and Doxycycline day 7 - target up to 7 days of antibiotics; cultures have been negative; nasal MRSA screen is positive Influenza antibody titers are not used for the diagnosis of acute Influenza infection will continue to monitor clinically follow up further plans for the right groin hematoma follow up further recommendations of Cardiology
--- NOTE | 2018-07-22 15:53 | PN ---
DATE: 07/22/2018 CARDIOLOGY FOLLOWUP SUBJECTIVE: The patient is comfortable in bed. PHYSICAL EXAMINATION: VITAL SIGNS: Blood pressure 148/69, heart rate is in the 80s. NECK: Negative JVD. LUNGS: Without rales. HEART: S1 and S2. EXTREMITIES: The right groin side is stable. LABORATORY DATA: Hemoglobin is 9.8. BUN and creatinine are 33 and 0.7. IMPRESSION: 1. Severe pulmonary hypertension. 2. Chronic obstructive pulmonary disease. 3. Status post percutaneous transluminal coronary angioplasty and stent of a right coronary artery. 4. Right groin bleed. 5. Peripheral vascular disease. 6. Anemia. PLAN: Given these findings, we will continue the patient's clopidogrel. We will keep monitoring her on her right groin site, although it remains stable at this time. Shaheed Handy MD
[2018-07-23] MEDS: Vancomycin 1gm in NS 250ml 1 GM/250 ML BAG IVPB SCH (01:09)
[2018-07-23] MEDS: Acetylcysteine 20% Inhal Soln (4ml) IH SCH ×4 (01:20→20:15)
[2018-07-23] MEDS: Levalbuterol 0.63 MG/3 ML Inhal Soln UD IH SCH ×4 (01:20→20:15)
[2018-07-23 02:29] VITALS: O2SAT 93
[2018-07-23] MEDS: Aztreonam 1 Gm in NS 100mL 100 ML IVPB SCH (05:39)
[2018-07-23] MEDS: Arformoterol 15 mcg/2 ml Inh Sol IH SCH ×2 (07:44→20:15)
[2018-07-23 08:12] LABS: EOS % 0.3 % (1.5-5.0); GRAN # 9.99 (1.4-6.5); HEMOGLOBIN 9.1 g/dL (12.0-16.0); LYMPH # 1.3 (1.2-3.4); LYMPH % 11.1 % (22.0-35.0); MEAN CORPUSCULAR HEMOGLOBIN 29.8 pg (25.0-35.0); MEAN CORPUSCULAR HGB CONC 29.8 g/dl (31.0-37.0); MEAN PLATELET VOLUME 9.5 fl (7.0-11.0); MONO # 0.7 (0.1-0.6); MONO % 5.6 % (1.0-6.0); RBC 3.05 10^6/uL (3.5-6.1); RED CELL DISTRIBUTION WIDTH 15.4 % (11.5-14.5); WHITE BLOOD COUNT 12.1 10^3/uL (4.5-11.0)
--- NOTE | 2018-07-23 08:13 | CP.PCM.PN ---
Subjective - Date & Time of Evaluation Date of Evaluation: 07/23/18 Time of Evaluation: 07:00 - Subjective Subjective: Resident Progress Note for Surgery: Dr. Membreno Patient examined at bedside. Patient is resting comfortably in bed in no acute distress. Dressing changed this AM. Patient denies pain, shortness of breath, n ausea, vomiting. Objective - Vital Signs/Intake and Output Vital Signs (last 24 hours): Temp Pulse Resp BP Pulse Ox 97.4 F L 77 20 142/76 93 L 07/23/18 00:01 07/23/18 06:00 07/23/18 00:01 07/23/18 05:40 07/23/18 00:01 Intake and Output: 07/23/18 07/23/18 06:59 18:59 Intake Total 200 Output Total 400 Balance -200 - Medications Medications: Current Medications Acetaminophen (Tylenol 325mg Tab) 650 mg PO Q6 PRN PRN Reason: TEMP>=99.5F Acetaminophen (Tylenol 650 Mg Supp) 650 mg RC Q6H PRN PRN Reason: TEMP>=99.5F Acetylcysteine (Acetylcysteine 20%) 4 ml IH [id number] [facility] Last Admin: 07/23/18 07:44 Dose: 4 ml Arformoterol Tartrate (Brovana) 15 mcg IH [id number] [facility] Last Admin: 07/23/18 07:44 Dose: 15 mcg Ascorbic Acid (Vitamin C 500 Mg Tab) 500 mg PO BID [facility] Last Admin: 07/22/18 17:34 Dose: 500 mg Atorvastatin Calcium (Lipitor) 40 mg PO DIN [facility] Last Admin: 07/22/18 17:34 Dose: 40 mg Clopidogrel Bisulfate (Plavix) 75 mg PO DAILY [facility] Last Admin: 07/22/18 11:13 Dose: 75 mg Diltiazem HCl (Cardizem) 60 mg PO Q8 [facility] Last Admin: 07/23/18 05:40 Dose: 60 mg Docusate Sodium (Colace) 100 mg PO TID [facility] Last Admin: 07/22/18 17:25 Dose: Not Given Escitalopram Oxalate (Lexapro) 5 mg PO HS [facility] Last Admin: 07/22/18 23:23 Dose: Not Given Famotidine (Pepcid) 20 mg PO 1000,2200 [facility] Last Admin: 07/22/18 22:28 Dose: 20 mg Furosemide (Lasix) 20 mg IVP DAILY [facility] Last Admin: 07/22/18 11:13 Dose: 20 mg Heparin Sodium (Porcine) (Heparin) 5,000 units SC Q8H [facility]; Protocol Last Admin: 07/15/18 13:42 Dose: 5,000 units Aztreonam (Azactam 1 Gm) 100 mls @ 100 mls/hr IVPB Q8 [facility]; Protocol Stop: 07/23/18 09:46 Last Admin: 07/23/18 05:39 Dose: 100 mls/hr Doxycycline Hyclate 100 mg/ (Sodium Chloride) 100 mls @ 100 mls/hr IVPB Q12 [facility]; Protocol Last Admin: 07/22/18 22:18 Dose: 100 mls/hr Vancomycin HCl (Vancomycin 1gm) 1 gm in 250 mls @ 167 mls/hr IVPB Q12H [facility]; Protocol Last Admin: 07/23/18 01:09 Dose: 167 mls/hr Levalbuterol HCl (Xopenex) 0.63 mg IH [id number] [facility] Last Admin: 07/23/18 07:44 Dose: 0.63 mg Midodrine (Proamatine) 5 mg PO TID [facility] Last Admin: 07/22/18 17:27 Dose: Not Given Montelukast Sodium (Singulair) 10 mg PO HS [facility] Last Admin: 07/22/18 22:20 Dose: 10 mg Multivitamins/Vitamin C (Multi-Delyn Liquid) 15 ml PO 0800 [facility] Last Admin: 07/22/18 08:00 Dose: Not Given Ambrisentan [ Letairis] 5 Mg ( Home Med) 5 mg PO DAILY [facility] Last Admin: 07/22/18 11:14 Dose: Not Given Ondansetron HCl (Zofran Inj) 4 mg IVP Q4H PRN PRN Reason: Nausea/Vomiting Prednisone (Prednisone Tab) 30 mg PO DAILY [facility] Last Admin: 07/22/18 11:13 Dose: 30 mg Sildenafil Citrate (Revatio) 20 mg PO TID [facility] Last Admin: 07/22/18 17:34 Dose: 20 mg Silver Sulfadiazine (Silvadene 1% 25 Gm) 0 gm TP BID [facility] Last Admin: 07/22/18 17:29 Dose: Not Given - Labs Labs: 07/22/18 05:30 07/22/18 05:30 PT 12.4 SECONDS (9.4-12.5) 07/16/18 08:15 INR 1.08 07/16/18 08:15 APTT 27.5 Seconds (25.1-36.5) 07/16/18 08:15 - Additional Findings Additional findings: - Constitutional Appears: Non-toxic, Chronically Ill - Head Exam Head Exam: NORMOCEPHALIC, ATRAUMATIC - Eye Exam Eye Exam: EOMI - ENT Exam ENT Exam: Mucous Membranes Moist - Respiratory Exam Respiratory Exam: NORMAL BREATHING PATTERN. absent: Accessory Muscle Use, Respiratory Distress - Cardiovascular Exam Cardiovascular Exam: REGULAR RHYTHM. absent: Bradycardia, Tachycardia - GI/Abdominal Exam GI & Abdominal Exam: Soft. absent: Distended, Firm, Guarding, Tenderness - Extremities Exam Additional comments: RLE hematoma soft, decreasing in size with new skin formation dressing C/D/I - Neurological Exam Neurological Exam: Alert, Awake - Skin Skin Exam: Intact, Warm Assessment and Plan - Assessment and Plan (Free Text) Assessment: Patient is an 82 year old female with PMH of atrial fibrillation, COPD, pulmonary HTN, diastolic CHF who presented with substernal chest pain, found to have hematoma s/p cardiac cath, now transferred out of ICU. Plan: - s/p 4 units pRBCs total - currently hemodynamically stable - continue to monitor and transfuse PRN - warm compress 20 min TID - silvadene with dry dressing over RLE hematoma - may eventually need drainage of hematoma - further management per primary team - further recs per Dr. Haseeb Burks PGY-1
[2018-07-23 08:27] LABS: ALB/GLOB RATIO 1.2 (1.1-1.8); ALBUMIN 3.1 g/dL (3.0-4.8); ALT/SGPT 58 U/L (7-56); AST/SGOT 46 U/L (14-36); BILIRUBIN,DIRECT 0.3 mg/dL (0.0-0.4); BLOOD UREA NITROGEN 29 mg/dL (7-21); CALCIUM 8.8 mg/dL (8.4-10.5); GFR NON-AFRICAN AMERICAN > 60
--- NOTE | 2018-07-23 08:36 | CP.PCM.PN ---
Subjective - Date & Time of Evaluation Date of Evaluation: 07/23/18 Time of Evaluation: 06:00 - Subjective Subjective: Patient seen and examined at bedside she states she has no complaints at this time currently having a duoneb treatment. Patient is aware she is to go for thoracentesis today. Objective - Vital Signs/Intake and Output Vital Signs (last 24 hours): Temp Pulse Resp BP Pulse Ox 97.4 F L 77 20 142/76 93 L 07/23/18 00:01 07/23/18 06:00 07/23/18 00:01 07/23/18 05:40 07/23/18 00:01 Intake and Output: 07/23/18 07/23/18 06:59 18:59 Intake Total 200 Output Total 400 Balance -200 - Medications Medications: Current Medications Acetaminophen (Tylenol 325mg Tab) 650 mg PO Q6 PRN PRN Reason: TEMP>=99.5F Acetaminophen (Tylenol 650 Mg Supp) 650 mg RC Q6H PRN PRN Reason: TEMP>=99.5F Acetylcysteine (Acetylcysteine 20%) 4 ml IH [id number] [facility] Last Admin: 07/23/18 07:44 Dose: 4 ml Arformoterol Tartrate (Brovana) 15 mcg IH [id number] [facility] Last Admin: 07/23/18 07:44 Dose: 15 mcg Ascorbic Acid (Vitamin C 500 Mg Tab) 500 mg PO BID [facility] Last Admin: 07/22/18 17:34 Dose: 500 mg Atorvastatin Calcium (Lipitor) 40 mg PO DIN [facility] Last Admin: 07/22/18 17:34 Dose: 40 mg Clopidogrel Bisulfate (Plavix) 75 mg PO DAILY [facility] Last Admin: 07/22/18 11:13 Dose: 75 mg Diltiazem HCl (Cardizem) 60 mg PO Q8 [facility] Last Admin: 07/23/18 05:40 Dose: 60 mg Docusate Sodium (Colace) 100 mg PO TID [facility] Last Admin: 07/22/18 17:25 Dose: Not Given Escitalopram Oxalate (Lexapro) 5 mg PO HS [facility] Last Admin: 07/22/18 23:23 Dose: Not Given Famotidine (Pepcid) 20 mg PO 1000,2200 [facility] Last Admin: 07/22/18 22:28 Dose: 20 mg Furosemide (Lasix) 20 mg IVP DAILY [facility] Last Admin: 07/22/18 11:13 Dose: 20 mg Heparin Sodium (Porcine) (Heparin) 5,000 units SC Q8H [facility]; Protocol Last Admin: 07/15/18 13:42 Dose: 5,000 units Aztreonam (Azactam 1 Gm) 100 mls @ 100 mls/hr IVPB Q8 [facility]; Protocol Stop: 07/23/18 09:46 Last Admin: 07/23/18 05:39 Dose: 100 mls/hr Doxycycline Hyclate 100 mg/ (Sodium Chloride) 100 mls @ 100 mls/hr IVPB Q12 [facility]; Protocol Last Admin: 07/22/18 22:18 Dose: 100 mls/hr Vancomycin HCl (Vancomycin 1gm) 1 gm in 250 mls @ 167 mls/hr IVPB Q12H [facility]; Protocol Last Admin: 07/23/18 01:09 Dose: 167 mls/hr Levalbuterol HCl (Xopenex) 0.63 mg IH [id number] [facility] Last Admin: 07/23/18 07:44 Dose: 0.63 mg Midodrine (Proamatine) 5 mg PO TID [facility] Last Admin: 07/22/18 17:27 Dose: Not Given Montelukast Sodium (Singulair) 10 mg PO HS [facility] Last Admin: 07/22/18 22:20 Dose: 10 mg Multivitamins/Vitamin C (Multi-Delyn Liquid) 15 ml PO 0800 [facility] Last Admin: 07/22/18 08:00 Dose: Not Given Ambrisentan [ Letairis] 5 Mg ( Home Med) 5 mg PO DAILY [facility] Last Admin: 07/22/18 11:14 Dose: Not Given Ondansetron HCl (Zofran Inj) 4 mg IVP Q4H PRN PRN Reason: Nausea/Vomiting Prednisone (Prednisone Tab) 30 mg PO DAILY [facility] Last Admin: 07/22/18 11:13 Dose: 30 mg Sildenafil Citrate (Revatio) 20 mg PO TID [facility] Last Admin: 07/22/18 17:34 Dose: 20 mg Silver Sulfadiazine (Silvadene 1% 25 Gm) 0 gm TP BID [facility] Last Admin: 07/22/18 17:29 Dose: Not Given - Labs Labs: 07/23/18 08:00 07/23/18 08:00 PT 12.4 SECONDS (9.4-12.5) 07/16/18 08:15 INR 1.08 07/16/18 08:15 APTT 27.5 Seconds (25.1-36.5) 07/16/18 08:15 - Constitutional Appears: Non-toxic - Head Exam Head Exam: ATRAUMATIC, NORMAL INSPECTION, NORMOCEPHALIC - Eye Exam Eye Exam: Normal appearance - ENT Exam ENT Exam: Mucous Membranes Dry - Respiratory Exam Respiratory Exam: Rales. absent: NORMAL BREATHING PATTERN - Cardiovascular Exam Cardiovascular Exam: Irregular Rhythm - GI/Abdominal Exam GI & Abdominal Exam: Soft - Neurological Exam Neurological Exam: Alert, Awake, Oriented x3 - Psychiatric Exam Psychiatric exam: Normal Affect, Normal Mood - Skin Skin Exam: absent: Normal Color (hematoma of right leg ) Assessment and Plan - Assessment and Plan (Free Text) Assessment: Patient is an 82 F with history of new onset atrial fibrillation, severe pulmonary hypertension with RVSP 145, right sided diastolic congestive heart failure presenting with hypercapnic respiratory failure Pleural effusion -IR consulted for evaluation -Patient to go for thoracentesis today Hematoma right thigh -Continue with warm compresses and silvadene as per surgery -Platelet count remains stable CAD s/p PCI with stent placement -continue with plavix Sepsis secondary to bilateral HAP -Last day of abx today Atrial fibrillation -Continue with diltiazem 60 mg q8H Severe COPD -Continue supplemental oxygen, mucomyst, brovana, xopenex, singulair -Continue to taper steroids Severe Pulmonary hypertension -Continue with Sildenafil 20 mg PO TID -Continue with Ambrisentan 5 mg Diastolic congestive heart failure -continue with lasix 20 mg IVP daily Thrombocytopenia -Plt count stable, continue to monitor platelet count Depression -Continue with lexapro 5 mg qHS GI/DVT prophlyaxis: Continue with pepcid and SCDs Dispo:accepted to LTACH at [place]
--- NOTE | 2018-07-23 09:16 | PN ---
DATE: 07/23/2018 SUBJECTIVE: The patient is in room 262 bed 1. Overnight last 24-hour events noted. The patient was unable to go for thoracentesis secondary to confusion in the radiology department regarding a chest x-ray and pleurocentesis so the patient was unable to undergo thoracentesis yesterday. Also according to the nurses, the patient has been desaturating when off BiPAP and off oxygen and the patient's oxygen saturation is dropping into 80% and the patient is requiring oxygen supplementation and BiPAP intermittently. The patient is lying in the bed. OBJECTIVE: VITAL SIGNS: T-max 97.4. Telemetry shows atrial fibrillation; heart rate 77, 89, 78; blood pressure 142/76, respirations 20, O2 sat 93%. HEENT: Head is normocephalic, atraumatic. Eyes; shows pinkish pale conjunctivae. Anicteric sclerae. No oropharyngeal lesion. NECK: No neck rigidity. CHEST: Kyphosis. LUNGS: Shows decreased breath sound at the bases, right more than the left. Positive rhonchi, creps bilaterally. CARDIOVASCULAR: S1, S2, irregular rhythm. Positive systolic murmur left sternal border, right second intercostal space, left second intercostal space. ABDOMEN: Soft. Positive bowel sound. No palpable hepatosplenomegaly. Right upper thigh hematoma noted with dressing. GENITALIA: Female. RECTAL: Deferred. EXTREMITIES: Shows positive SCDs. Trace swelling of the ankles. No pitting edema noted. MUSCULOSKELETAL: As per the body mass index of the on the [facility]. NEUROLOGIC: The patient is alert, awake, responsive, arousable. Gait examination could not be tested. The patient is lying in the bed,. DIAGNOSTICS: Still pending from this morning. IMPRESSION: 1. New-onset atrial fibrillation. 2. Status post acute hypoxic hypercarbic respiratory failure. 3. Bilevel positive airway pressure requiring respiratory failure with recurrent persistent hypoxemia. 4. New-onset atrial fibrillation. 5. Right-sided diastolic congestive heart failure with elevated ProBNP. 6. Severe advanced pulmonary hypertension with right ventricular systolic pressure of greater than 145 mmHg. 7. Severe tricuspid regurgitation. 8. History of hypotension. 9. Post cardiac catheterization and right groin, right inguinal area, and right upper thigh hematoma. 10. Acute blood loss anemia. 11. Status post packed red blood cell transfusion x4. 12. Leukocytosis with granulocytosis. 13. Normocytic anemia. 14. Anemia. 15. Single-vessel coronary artery disease. 16. Status post angioplasty with bare-metal stent placement of the right coronary artery angioplasty. 17. Bilateral multilobar healthcare-associated pneumonia. 18. Large bilateral pleural effusion, right more than the left. PLAN: At this time, the patient is awaiting for a thoracentesis by Interventional Radiology. The patient's diagnostic data which will when available from today will be reviewed and therapeutic intervention will be ordered. The patient is still on IV antibiotics as per Infectious Disease recommendation, IV antibiotics are still not discontinued by the infectious disease resourcing consultant. We are awaiting for their recommendations and discontinuation of the IV antibiotics by the infectious disease resourcing consultant. Blood cultures are negative. Today the patient will undergo thoracentesis as per interventional radiology and also we will await Infectious Disease recommendations about discontinuation of the antibiotics and discontinuation of antibiotics by Infectious Disease. I have met with the patient's next of kin yesterday, niece at bedside and the family member, I have spoken at length about the patient's condition, diagnosis, test results overall guarded to poor prognosis, recommendation by all physicians and all details discussed and explained to the patient's next of kin, niece at bedside in layman's language. All questions concerned answered. The patient's niece understands above the patient's overall guarded to poor prognosis. I have also explained that once the patient is off the IV antibiotics and after thoracentesis. The patient is stable and cleared by all subspecialties. The patient will be considered for discharge to a facility of the patient's family's choice, which would be long-term acute care hospitalization subacute rehab or acute rehab. Dictated and electronically signed, not read. Jonah Loyd MD
[2018-07-23] MEDS: AMBRISENTAN 5 MG PO SCH (09:52)
[2018-07-23] MEDS: Silver Sulfadiazine 1% Cream (25 gm) TP SCH ×2 (09:53→18:18)
[2018-07-23] MEDS: Sildenafil 20 MG TAB PO SCH ×3 (10:02→18:23)
[2018-07-23] MEDS: Multi Vitamins 15 mL UD Oral Solution PO SCH (10:25)
--- NOTE | 2018-07-23 11:06 | CP.PCM.APN ---
Subjective - Date & Time of Evaluation Date of Evaluation: 07/23/18 Time of Evaluation: 10:50 - Subjective Subjective: pt seen being transported for thoracentesis NAD Review of Systems - Constitutional Constitutional: As Per HPI Objective - Vital Signs/Intake and Output Vital Signs (last 24 hours): Temp Pulse Resp BP Pulse Ox 97.4 F L 77 20 148/58 L 93 L 07/23/18 00:01 07/23/18 06:00 07/23/18 00:01 07/23/18 10:02 07/23/18 00:01 Intake and Output: 07/23/18 07/23/18 06:59 18:59 Intake Total 200 Output Total 400 Balance -200 - Medications Medications: Current Medications Acetaminophen (Tylenol 325mg Tab) 650 mg PO Q6 PRN PRN Reason: TEMP>=99.5F Acetaminophen (Tylenol 650 Mg Supp) 650 mg RC Q6H PRN PRN Reason: TEMP>=99.5F Acetylcysteine (Acetylcysteine 20%) 4 ml IH [id number] [facility] Last Admin: 07/23/18 07:44 Dose: 4 ml Arformoterol Tartrate (Brovana) 15 mcg IH [id number] [facility] Last Admin: 07/23/18 07:44 Dose: 15 mcg Ascorbic Acid (Vitamin C 500 Mg Tab) 500 mg PO BID [facility] Last Admin: 07/23/18 10:02 Dose: 500 mg Atorvastatin Calcium (Lipitor) 40 mg PO DIN [facility] Last Admin: 07/22/18 17:34 Dose: 40 mg Clopidogrel Bisulfate (Plavix) 75 mg PO DAILY [facility] Last Admin: 07/23/18 10:02 Dose: 75 mg Diltiazem HCl (Cardizem) 60 mg PO Q8 [facility] Last Admin: 07/23/18 05:40 Dose: 60 mg Docusate Sodium (Colace) 100 mg PO TID [facility] Last Admin: 07/23/18 10:02 Dose: 100 mg Escitalopram Oxalate (Lexapro) 5 mg PO HS [facility] Last Admin: 07/22/18 23:23 Dose: Not Given Famotidine (Pepcid) 20 mg PO 1000,2200 [facility] Last Admin: 07/23/18 10:02 Dose: 20 mg Furosemide (Lasix) 20 mg IVP DAILY [facility] Last Admin: 07/23/18 10:02 Dose: 20 mg Heparin Sodium (Porcine) (Heparin) 5,000 units SC Q8H [facility]; Protocol Last Admin: 07/15/18 13:42 Dose: 5,000 units Doxycycline Hyclate 100 mg/ (Sodium Chloride) 100 mls @ 100 mls/hr IVPB Q12 [facility]; Protocol Stop: 07/23/18 22:00 Last Admin: 07/23/18 10:03 Dose: 100 mls/hr Vancomycin HCl (Vancomycin 1gm) 1 gm in 250 mls @ 167 mls/hr IVPB Q12H [facility]; Protocol Last Admin: 07/23/18 01:09 Dose: 167 mls/hr Levalbuterol HCl (Xopenex) 0.63 mg IH [id number] [facility] Last Admin: 07/23/18 07:44 Dose: 0.63 mg Midodrine (Proamatine) 5 mg PO TID [facility] Last Admin: 07/23/18 10:02 Dose: 5 mg Montelukast Sodium (Singulair) 10 mg PO HS [facility] Last Admin: 07/22/18 22:20 Dose: 10 mg Multivitamins/Vitamin C (Multi-Delyn Liquid) 15 ml PO 0800 [facility] Last Admin: 07/23/18 10:25 Dose: 15 ml Ambrisentan [ Letairis] 5 Mg ( Home Med) 5 mg PO DAILY [facility] Last Admin: 07/23/18 09:52 Dose: Not Given Ondansetron HCl (Zofran Inj) 4 mg IVP Q4H PRN PRN Reason: Nausea/Vomiting Prednisone (Prednisone Tab) 20 mg PO DAILY [facility] Last Admin: 07/23/18 10:02 Dose: 20 mg Sildenafil Citrate (Revatio) 20 mg PO TID [facility] Last Admin: 07/23/18 10:02 Dose: 20 mg Silver Sulfadiazine (Silvadene 1% 25 Gm) 0 gm TP BID [facility] Last Admin: 07/23/18 09:53 Dose: Not Given - Labs Labs: 07/23/18 08:00 07/23/18 08:00 PT 12.4 SECONDS (9.4-12.5) 07/16/18 08:15 INR 1.08 07/16/18 08:15 APTT 27.5 Seconds (25.1-36.5) 07/16/18 08:15 - Constitutional Appears: No Acute Distress, Chronically Ill - ENT Exam ENT Exam: Mucous Membranes Moist - Respiratory Exam Respiratory Exam: Decreased Breath Sounds - Cardiovascular Exam Cardiovascular Exam: +S1, +S2 - GI/Abdominal Exam GI & Abdominal Exam: Normal Bowel Sounds - Extremities Exam Additional comments: right groin hematoma- stable - Neurological Exam Neurological Exam: Alert, Awake Assessment and Plan - Assessment and Plan (Free Text) Plan: 82 yr old white female with pmh sig for copd, severe pul htn, diastolic chf, cellulitis admitted with cp and palps transferred to ICu on 07/13 for closer mgmt of acute hypoxic resp failure s/p high flow 02 , severe resp acidosis and co2 narcosis Impressions Chest X-Ray 07/21/18 07:24 IMPRESSION: Moderate size right-sided pleural effusion and adjacent infiltrate pt is s/p cath with ptca to RCA stenosis then developed large right groin hematoma 07/16 surgical consult Arterial doppler with no pseudoaneurysm but large hematoma ct abd pelvis rev'd #acute hypoxia /respiratory acidosis /hypercapnic resp failure continued ICU monitoring pt weaned off high flow o2 to nC , bipap prn cxr reviewed with resident, moderate sized pleural effusion and adjacent infiltrate thoracentesis now #severe pul htn s/p left and right heart cath Revatio regimen 20TID RA mean pressure per cath report 18mmHg noted #new onset AFIB cardizem 60 q8 hrs cardiology consultation and recs noted #Right sided CHF /diastolic chf IV lasix 20 iv daily discuss patient plan with pmd, resident, nurse and sw pt accepted to LTACH, will followup after thoracentesis today and repeat cxr per discussion with medical team
[2018-07-23 12:42] LABS: BODY FLUID TYPE PLEURAL
--- NOTE | 2018-07-23 13:06 | CP.PCM.PN ---
Subjective - Date & Time of Evaluation Date of Evaluation: 07/23/18 Time of Evaluation: 10:25 - Subjective Subjective: At times still using BiPAP, no fevers, but not in distress. Objective - Vital Signs/Intake and Output Vital Signs (last 24 hours): Temp Pulse Resp BP Pulse Ox 98.7 F 80 18 146/75 98 07/22/18 12:00 07/22/18 13:16 07/22/18 12:00 07/22/18 13:16 07/22/18 05:57 Intake and Output: 07/22/18 07/22/18 06:59 18:59 Intake Total 1030 Output Total 300 Balance 730 - Medications Medications: Current Medications Acetaminophen (Tylenol 325mg Tab) 650 mg PO Q6 PRN PRN Reason: TEMP>=99.5F Acetaminophen (Tylenol 650 Mg Supp) 650 mg RC Q6H PRN PRN Reason: TEMP>=99.5F Acetylcysteine (Acetylcysteine 20%) 4 ml IH [id number] [facility] Last Admin: 07/22/18 13:13 Dose: 4 ml Arformoterol Tartrate (Brovana) 15 mcg IH [id number] [facility] Last Admin: 07/22/18 07:49 Dose: 15 mcg Ascorbic Acid (Vitamin C 500 Mg Tab) 500 mg PO BID [facility] Last Admin: 07/22/18 11:13 Dose: 500 mg Atorvastatin Calcium (Lipitor) 40 mg PO DIN [facility] Last Admin: 07/21/18 18:25 Dose: Not Given Clopidogrel Bisulfate (Plavix) 75 mg PO DAILY [facility] Last Admin: 07/22/18 11:13 Dose: 75 mg Diltiazem HCl (Cardizem) 60 mg PO Q8 [facility] Last Admin: 07/22/18 13:16 Dose: 60 mg Docusate Sodium (Colace) 100 mg PO TID [facility] Last Admin: 07/22/18 13:17 Dose: 100 mg Escitalopram Oxalate (Lexapro) 5 mg PO HS [facility] Last Admin: 07/21/18 21:35 Dose: 5 mg Famotidine (Pepcid) 20 mg PO 1000,2200 [facility] Last Admin: 07/22/18 11:13 Dose: 20 mg Furosemide (Lasix) 20 mg IVP DAILY [facility] Last Admin: 07/22/18 11:13 Dose: 20 mg Heparin Sodium (Porcine) (Heparin) 5,000 units SC Q8H [facility]; Protocol Last Admin: 07/15/18 13:42 Dose: 5,000 units Aztreonam (Azactam 1 Gm) 100 mls @ 100 mls/hr IVPB Q8 [facility]; Protocol Stop: 07/23/18 09:46 Last Admin: 07/22/18 13:17 Dose: 100 mls/hr Doxycycline Hyclate 100 mg/ (Sodium Chloride) 100 mls @ 100 mls/hr IVPB Q12 [facility]; Protocol Last Admin: 07/22/18 11:14 Dose: 100 mls/hr Vancomycin HCl (Vancomycin 1gm) 1 gm in 250 mls @ 167 mls/hr IVPB Q12H [facility]; Protocol Last Admin: 07/22/18 15:08 Dose: 167 mls/hr Levalbuterol HCl (Xopenex) 0.63 mg IH [id number] [facility] Last Admin: 07/22/18 13:13 Dose: 0.63 mg Midodrine (Proamatine) 5 mg PO TID [facility] Last Admin: 07/22/18 15:05 Dose: Not Given Montelukast Sodium (Singulair) 10 mg PO HS [facility] Last Admin: 07/21/18 21:36 Dose: 10 mg Multivitamins/Vitamin C (Multi-Delyn Liquid) 15 ml PO 0800 [facility] Last Admin: 07/22/18 08:00 Dose: Not Given Ambrisentan [ Letairis] 5 Mg ( Home Med) 5 mg PO DAILY [facility] Last Admin: 07/22/18 11:14 Dose: Not Given Ondansetron HCl (Zofran Inj) 4 mg IVP Q4H PRN PRN Reason: Nausea/Vomiting Prednisone (Prednisone Tab) 30 mg PO DAILY [facility] Last Admin: 07/22/18 11:13 Dose: 30 mg Sildenafil Citrate (Revatio) 20 mg PO TID [facility] Last Admin: 07/22/18 13:16 Dose: 20 mg Silver Sulfadiazine (Silvadene 1% 25 Gm) 0 gm TP BID [facility] Last Admin: 07/22/18 11:06 Dose: Not Given - Labs Labs: 07/22/18 05:30 07/22/18 05:30 PT 12.4 SECONDS (9.4-12.5) 07/16/18 08:15 INR 1.08 07/16/18 08:15 APTT 27.5 Seconds (25.1-36.5) 07/16/18 08:15 - Constitutional Appears: Chronically Ill - Head Exam Head Exam: NORMAL INSPECTION - Neck Exam Neck Exam: absent: Meningismus - Respiratory Exam Respiratory Exam: Decreased Breath Sounds - Cardiovascular Exam Cardiovascular Exam: +S1, +S2 - GI/Abdominal Exam GI & Abdominal Exam: Soft. absent: Tenderness - Extremities Exam Additional comments: right thigh with dressings in place Assessment and Plan - Assessment and Plan (Free Text) Plan: Assessment consider bilateral lower lobe HCAP in this patient presenting acute myocardial infarction S/P cardiac cath positive influenza A titers, either previous infection or response to influenza vaccination right groin hematoma after cardiac cath history of right leg cellulitis with Pseudomonas in this patient with probable chronic venous stasis, S/P treatment with antibiotics COPD diastolic CHF pulmonary HTN Plan on Vancomycin, Aztreonam and Doxycycline day 8 and will d/c after today; cultures have been negative; nasal MRSA screen is positive Influenza antibody titers are not used for the diagnosis of acute Influenza infection will continue to monitor clinically follow up further plans for the right groin hematoma follow up further recommendations of Cardiology
[2018-07-23 13:30] LABS: BF GROSS APPEARANCE SL CLOUDY (CLEAR)
[2018-07-23 13:31] LABS: BODY FLUID TOTAL COUNT 100 (0-0)
--- NOTE | 2018-07-23 13:47 | PN ---
DATE: 07/23/2018 CARDIOLOGY FOLLOWUP SUBJECTIVE: The patient is awake, alert without distress. PHYSICAL EXAMINATION: VITAL SIGNS: Blood pressure is 146/77, heart rates in the 80s. NECK: Negative JVD. LUNGS: Without rales. HEART: S1, S2. EXTREMITIES: Without change. The right groin site, the hematoma is softer. There is some skin breakdown. LABORATORY DATA: Hemoglobin is 9.1. Chemistries, BUN and creatinine are unremarkable. IMPRESSION: 1. Status post percutaneous coronary intervention of the right coronary artery. 2. Status post right groin bleed. 3. Severe pulmonary hypertension. 4. Coronary artery disease. 5. Anemia which is stable. Given these findings, we will need to begin mobilizing the patient. We will try to get the patient out of bed today. Shaheed Handy MD
--- NOTE | 2018-07-23 14:39 | RAD ---
Date of service: 07/23/2018 HISTORY: S/P Thoracentesis rt COMPARISON: 07/21/2018 FINDINGS: LUNGS: Bilateral perihilar infiltrates and bilateral effusions PLEURA: No evidence of pneumothorax CARDIOVASCULAR: No aortic atherosclerotic calcification present. Moderate cardiomegaly vascular congestion OSSEOUS STRUCTURES: No significant abnormalities. VISUALIZED UPPER ABDOMEN: Normal. OTHER FINDINGS: None. IMPRESSION: Bilateral perihilar infiltrates and bilateral effusions
--- NOTE | 2018-07-23 15:47 | US ---
PROCEDURE: Ultrasound guided right thoracentesis. CLINICAL HISTORY: Bilateral pleural effusions. Shortness of breath. Needs diagnostic and therapeutic thoracentesis PHYSICIAN(S): Shaheed Burden MD. TECHNIQUE: The relative risks and indications of the procedure were explained to the patient and consent obtained. The patient was placed in a sitting position on the stretcher and sonography of the chest performed. This revealed bilateral moderate to large pleural effusions, slightly larger on the right. A right posterolateral intercostal approach was selected and the area prepped and draped usual sterile fashion. 1% Xylocaine was used to anesthetize the skin and soft tissues. A 7 Georgian thoracentesis catheter was trocared into the right pleural cavity and 1300of clear straw-colored fluid aspirated. The appropriate labs were sent IMPRESSION: 1. Ultrasound guided right thoracentesis. 1300 cc of clear straw-colored fluid were aspirated. The appropriate labs were sent
[2018-07-24] MEDS: Levalbuterol 0.63 MG/3 ML Inhal Soln UD IH SCH ×5 (01:48→20:12)
[2018-07-24] MEDS: Acetylcysteine 20% Inhal Soln (4ml) IH SCH ×4 (01:48→20:12)
[2018-07-24 07:46] LABS: EOS # 0.1 (0.0-0.7); EOS % 0.8 % (1.5-5.0); GRAN # 9.9 (1.4-6.5); GRAN % 84.2 % (50.0-68.0); HEMOGLOBIN 9.7 g/dL (12.0-16.0); LYMPH # 1.4 (1.2-3.4); LYMPH % 11.6 % (22.0-35.0); MEAN CELL VOLUME 98.8 fl (80.0-105.0); MEAN CORPUSCULAR HEMOGLOBIN 30.2 pg (25.0-35.0); MEAN CORPUSCULAR HGB CONC 30.6 g/dl (31.0-37.0); MEAN PLATELET VOLUME 9.9 fl (7.0-11.0); MONO # 0.4 (0.1-0.6); MONO % 3.4 % (1.0-6.0); RBC 3.21 10^6/uL (3.5-6.1); RED CELL DISTRIBUTION WIDTH 15.6 % (11.5-14.5); WHITE BLOOD COUNT 11.8 10^3/uL (4.5-11.0)
[2018-07-24] MEDS: Arformoterol 15 mcg/2 ml Inh Sol IH SCH ×2 (08:02→20:12)
[2018-07-24 08:04] LABS: ALB/GLOB RATIO 1.3 (1.1-1.8); ALT/SGPT 63 U/L (7-56); AST/SGOT 52 U/L (14-36); BILIRUBIN,DIRECT 0.2 mg/dL (0.0-0.4); BLOOD UREA NITROGEN 28 mg/dL (7-21); CALCIUM 8.8 mg/dL (8.4-10.5); GFR NON-AFRICAN AMERICAN > 60
--- NOTE | 2018-07-24 08:21 | CP.PCM.PN ---
Subjective - Date & Time of Evaluation Date of Evaluation: 07/24/18 Time of Evaluation: 08:21 - Subjective Subjective: Resident Progress Note for Surgery: Dr. Membreno Patient examined at bedside. Patient is s/p thoracentesis which she tolerated well. Dressing was changed this AM. Patient denies pain, shortness of breath, na usea, vomiting. Objective - Vital Signs/Intake and Output Vital Signs (last 24 hours): Temp Pulse Resp BP Pulse Ox 98.6 F 101 H 20 146/67 93 L 07/23/18 18:00 07/23/18 22:00 07/23/18 18:00 07/23/18 18:00 07/23/18 00:01 Intake and Output: 07/24/18 07/24/18 06:59 18:59 Intake Total 120 Output Total 300 Balance -180 - Medications Medications: Current Medications Acetaminophen (Tylenol 325mg Tab) 650 mg PO Q6 PRN PRN Reason: TEMP>=99.5F Acetaminophen (Tylenol 650 Mg Supp) 650 mg RC Q6H PRN PRN Reason: TEMP>=99.5F Acetylcysteine (Acetylcysteine 20%) 4 ml IH [id number] [facility] Last Admin: 07/24/18 08:02 Dose: 4 ml Arformoterol Tartrate (Brovana) 15 mcg IH [id number] [facility] Last Admin: 07/24/18 08:02 Dose: 15 mcg Ascorbic Acid (Vitamin C 500 Mg Tab) 500 mg PO BID [facility] Last Admin: 07/23/18 18:23 Dose: 500 mg Atorvastatin Calcium (Lipitor) 40 mg PO DIN [facility] Last Admin: 07/23/18 18:23 Dose: 40 mg Clopidogrel Bisulfate (Plavix) 75 mg PO DAILY [facility] Last Admin: 07/23/18 10:02 Dose: 75 mg Diltiazem HCl (Cardizem) 60 mg PO Q8 [facility] Last Admin: 07/23/18 22:00 Dose: 60 mg Docusate Sodium (Colace) 100 mg PO TID [facility] Last Admin: 07/23/18 18:23 Dose: 100 mg Escitalopram Oxalate (Lexapro) 5 mg PO HS [facility] Last Admin: 07/23/18 21:58 Dose: 5 mg Famotidine (Pepcid) 20 mg PO 1000,2200 [facility] Last Admin: 07/23/18 22:00 Dose: 20 mg Furosemide (Lasix) 20 mg IVP DAILY [facility] Last Admin: 07/23/18 10:02 Dose: 20 mg Heparin Sodium (Porcine) (Heparin) 5,000 units SC Q8H [facility]; Protocol Last Admin: 07/15/18 13:42 Dose: 5,000 units Levalbuterol HCl (Xopenex) 0.63 mg IH [id number] [facility] Last Admin: 07/24/18 08:02 Dose: 0.63 mg Midodrine (Proamatine) 5 mg PO TID [facility] Last Admin: 07/23/18 18:23 Dose: 5 mg Montelukast Sodium (Singulair) 10 mg PO HS [facility] Last Admin: 07/23/18 21:59 Dose: 10 mg Multivitamins/Vitamin C (Multi-Delyn Liquid) 15 ml PO 0800 [facility] Last Admin: 07/23/18 10:25 Dose: 15 ml Ambrisentan [ Letairis] 5 Mg ( Home Med) 5 mg PO DAILY [facility] Last Admin: 07/23/18 09:52 Dose: Not Given Ondansetron HCl (Zofran Inj) 4 mg IVP Q4H PRN PRN Reason: Nausea/Vomiting Prednisone (Prednisone Tab) 20 mg PO DAILY [facility] Last Admin: 07/23/18 10:02 Dose: 20 mg Sildenafil Citrate (Revatio) 20 mg PO TID [facility] Last Admin: 07/23/18 18:23 Dose: 20 mg Silver Sulfadiazine (Silvadene 1% 25 Gm) 0 gm TP BID [facility] Last Admin: 07/23/18 18:18 Dose: 1 gm - Labs Labs: 07/24/18 07:30 07/24/18 07:30 PT 12.4 SECONDS (9.4-12.5) 07/16/18 08:15 INR 1.08 07/16/18 08:15 APTT 27.5 Seconds (25.1-36.5) 07/16/18 08:15 - Additional Findings Additional findings: - Constitutional Appears: Non-toxic, Chronically Ill - Head Exam Head Exam: NORMOCEPHALIC, ATRAUMATIC - Eye Exam Eye Exam: EOMI - ENT Exam ENT Exam: Mucous Membranes Moist - Respiratory Exam Respiratory Exam: NORMAL BREATHING PATTERN. absent: Accessory Muscle Use, Respiratory Distress - Cardiovascular Exam Cardiovascular Exam: REGULAR RHYTHM. absent: Bradycardia, Tachycardia - GI/Abdominal Exam GI & Abdominal Exam: Soft. absent: Distended, Firm, Guarding, Tenderness - Extremities Exam Additional comments: RLE hematoma soft, decreasing in size with new skin formation dressing C/D/I - Neurological Exam Neurological Exam: Alert, Awake - Skin Skin Exam: Intact, Warm Assessment and Plan - Assessment and Plan (Free Text) Assessment: Patient is an 82 year old female with PMH of atrial fibrillation, COPD, pulmonary HTN, diastolic CHF who presented with substernal chest pain, found to have hematoma s/p cardiac cath, now transferred out of ICU. Plan: - s/p 4 units pRBCs total - currently hemodynamically stable - continue to monitor and transfuse PRN - warm compress 20 min TID - silvadene with dry dressing over RLE hematoma - may eventually need drainage of hematoma - further management per primary team - further recs per Dr. Haseeb Burks PGY-1
--- NOTE | 2018-07-24 09:37 | RAD ---
Date of service: 07/24/2018 HISTORY: s/p thoracentesis pneumothorax COMPARISON: 07/23/2018 TECHNIQUE: Chest PA and lateral FINDINGS: LUNGS: No change in right lower lobe infiltrate. Improved left-sided infiltrate. PLEURA: No significant pleural effusion identified. No pneumothorax apparent. CARDIOVASCULAR: Aortic calcification Moderate cardiomegaly no pulmonary vascular congestion. OSSEOUS STRUCTURES: No significant abnormalities. VISUALIZED UPPER ABDOMEN: Normal. OTHER FINDINGS: None. IMPRESSION: No change in right lower lobe infiltrate. Improved left-sided infiltrate
[2018-07-24] MEDS: Multi Vitamins 15 mL UD Oral Solution PO SCH (09:57)
[2018-07-24] MEDS: Sildenafil 20 MG TAB PO SCH ×3 (09:59→18:10)
[2018-07-24] MEDS: Silver Sulfadiazine 1% Cream (25 gm) TP SCH (10:00)
[2018-07-24] MEDS: AMBRISENTAN 5 MG PO SCH (10:02)
--- NOTE | 2018-07-24 11:13 | CP.PCM.APN ---
Subjective - Date & Time of Evaluation Date of Evaluation: 07/24/18 Time of Evaluation: 09:45 - Subjective Subjective: pt seen and examined at bedside, per Rn pt desats to 78% on 2L Review of Systems - Constitutional Constitutional: Fatigue Objective - Vital Signs/Intake and Output Vital Signs (last 24 hours): Temp Pulse Resp BP Pulse Ox 98.6 F 93 H 20 132/86 93 L 07/23/18 18:00 07/24/18 11:00 07/23/18 18:00 07/24/18 10:09 07/23/18 00:01 Intake and Output: 07/24/18 07/24/18 06:59 18:59 Intake Total 120 Output Total 300 Balance -180 - Medications Medications: Current Medications Acetaminophen (Tylenol 325mg Tab) 650 mg PO Q6 PRN PRN Reason: TEMP>=99.5F Acetaminophen (Tylenol 650 Mg Supp) 650 mg RC Q6H PRN PRN Reason: TEMP>=99.5F Acetazolamide (Diamox 250 Mg Tab) 250 mg PO DAILY [facility] Last Admin: 07/24/18 10:08 Dose: 250 mg Acetylcysteine (Acetylcysteine 20%) 4 ml IH [id number] [facility] Last Admin: 07/24/18 08:02 Dose: 4 ml Arformoterol Tartrate (Brovana) 15 mcg IH [id number] [facility] Last Admin: 07/24/18 08:02 Dose: 15 mcg Ascorbic Acid (Vitamin C 500 Mg Tab) 500 mg PO BID [facility] Last Admin: 07/24/18 09:58 Dose: 500 mg Atorvastatin Calcium (Lipitor) 40 mg PO DIN [facility] Last Admin: 07/23/18 18:23 Dose: 40 mg Clopidogrel Bisulfate (Plavix) 75 mg PO DAILY [facility] Last Admin: 07/24/18 09:58 Dose: 75 mg Diltiazem HCl (Cardizem) 60 mg PO Q8 [facility] Last Admin: 07/23/18 22:00 Dose: 60 mg Docusate Sodium (Colace) 100 mg PO TID [facility] Last Admin: 07/24/18 09:57 Dose: 100 mg Escitalopram Oxalate (Lexapro) 5 mg PO HS [facility] Last Admin: 07/23/18 21:58 Dose: 5 mg Famotidine (Pepcid) 20 mg PO 1000,2200 [facility] Last Admin: 07/24/18 09:58 Dose: 20 mg Furosemide (Lasix) 20 mg IVP DAILY [facility] Last Admin: 07/24/18 10:09 Dose: 20 mg Heparin Sodium (Porcine) (Heparin) 5,000 units SC Q8H [facility]; Protocol Last Admin: 07/15/18 13:42 Dose: 5,000 units Levalbuterol HCl (Xopenex) 0.63 mg IH [id number] [facility] Last Admin: 07/24/18 10:42 Dose: 0.63 mg Midodrine (Proamatine) 5 mg PO TID [facility] Last Admin: 07/24/18 09:59 Dose: 5 mg Montelukast Sodium (Singulair) 10 mg PO HS [facility] Last Admin: 07/23/18 21:59 Dose: 10 mg Multivitamins/Vitamin C (Multi-Delyn Liquid) 15 ml PO 0800 [facility] Last Admin: 07/24/18 09:57 Dose: 15 ml Ambrisentan [ Letairis] 5 Mg ( Home Med) 5 mg PO DAILY [facility] Last Admin: 07/24/18 10:02 Dose: Not Given Ondansetron HCl (Zofran Inj) 4 mg IVP Q4H PRN PRN Reason: Nausea/Vomiting Prednisone (Prednisone Tab) 20 mg PO DAILY [facility] Last Admin: 07/24/18 09:59 Dose: 20 mg Sildenafil Citrate (Revatio) 20 mg PO TID [facility] Last Admin: 07/24/18 09:59 Dose: 20 mg Silver Sulfadiazine (Silvadene 1% 25 Gm) 0 gm TP BID [facility] Last Admin: 07/24/18 10:00 Dose: 1 gm - Labs Labs: 07/24/18 07:30 07/24/18 07:30 PT 12.4 SECONDS (9.4-12.5) 07/16/18 08:15 INR 1.08 07/16/18 08:15 APTT 27.5 Seconds (25.1-36.5) 07/16/18 08:15 - Constitutional Appears: No Acute Distress, Chronically Ill - Eye Exam Pupil Exam: NORMAL ACCOMODATION - ENT Exam ENT Exam: Normal Exam - Respiratory Exam Respiratory Exam: Decreased Breath Sounds - Cardiovascular Exam Cardiovascular Exam: +S1 - Extremities Exam Extremities Exam: Normal Capillary Refill Additional comments: pt with right groin dressing to hematoma site, ecchomytic , firm - Neurological Exam Neurological Exam: Alert, Oriented x3 - Psychiatric Exam Psychiatric exam: Normal Affect, Normal Mood - Skin Skin Exam: Dry, Intact Assessment and Plan - Assessment and Plan (Free Text) Plan: 82 yr old white female with pmh sig for copd, severe pul htn, diastolic chf, ce llulitis admitted with cp and palps transferred to ICu on 07/13 for closer mgmt of acute hypoxic resp failure s/p high flow 02 , severe resp acidosis and co2 narcosis pt is s/p cath with ptca to RCA stenosis then developed large right groin hematoma 07/16 surgical consult Arterial doppler with no pseudoaneurysm but large hematoma site stable #acute hypoxia /respiratory acidosis /hypercapnic resp failure continued ICU monitoring pt weaned off high flow o2 to nC , bipap prn cxr reviewed with resident, moderate sized pleural effusion and adjacent infiltrate pt is s/p thoracentesis with follo wup cxr showing no change in right lower lobe infiltrate #severe pul htn s/p left and right heart cath Revatio regimen 20TID RA mean pressure per cath report 18mmHg noted #new onset AFIB cardizem 60 q8 hrs cardiology consultation and recs noted #Right sided CHF /diastolic chf continue present mgmt lasix 20mg IV daily discuss patient plan with pmd, resident, nurse and sw per discussion with resident, pt for ADDY eval - LTACH denied per sw discussion continues to desat to 78% on 2l, moved to 5l O2 and BIPAP prn. will continue to follow Shonna Christiansen APN BPCI/TIC - BPCIA/TIC Flyers given, including CMS Beneficiary letter: Yes Pt/family verbalized understanding & agreed to program: Yes
--- NOTE | 2018-07-24 11:47 | PN ---
DATE: 07/24/2018 SUBJECTIVE: The patient is without dyspnea. She is status post thoracentesis. PHYSICAL EXAMINATION: VITAL SIGNS: Blood pressure 146/67, heart rate is in the 90s. NECK: Negative JVD. LUNGS: Decreased breath sounds bilaterally. HEART: S1, S2. EXTREMITIES: Without edema. : The right groin site is unchanged with slight improvement. LABORATORY DATA: Hemoglobin is 9.7. Chemistries, BUN and creatinine are unremarkable. IMPRESSION: 1. Status post percutaneous transluminal coronary angioplasty and stent of the right coronary artery. 2. Severe chronic obstructive pulmonary disease. 3. Severe pulmonary hypertension. 4. Peripheral vascular disease. 5. Status post right groin bleed. 6. Bilateral pleural effusions. PLAN: Given these findings, the patient's groin bleed is stable. Awaiting analysis of her pleural fluid. Shaheed Handy MD
[2018-07-24 12:32] VITALS: RESP 18
--- NOTE | 2018-07-24 12:51 | DS ---
FINAL PROGRESS NOTE AND DISCHARGE SUMMARY DATE: 07/24/2018 SUBJECTIVE: The patient is seen in room 262 bed 1. The patient is seen lying in the bed. The patient is alert, awake, responsive. The patient underwent thoracentesis yesterday which the patient tolerated and had a removal of 1300 mL of pleural fluid. PHYSICAL EXAMINATION: VITAL SIGNS: T-max 98.6. Telemetry shows atrial fibrillation, heart rate 80s, 103, 193; blood pressure 132/86; respiration 20; O2 sat is 93, 96, 98%. Intake output is noted. HEENT: Head examination is normocephalic, atraumatic. HEENT examination shows pinkish pale conjunctivae. Anicteric sclerae. No oropharyngeal lesion. NECK: No neck rigidity. CHEST: Kyphosis. LUNGS: Examination shows positive decreased breath sound at the bases. Positive rhonchi bilaterally. CARDIOVASCULAR: S1, S2, irregular rhythm. Positive systolic murmur left sternal border, right second intercostal space, left second intercostal space. ABDOMEN: Soft. Positive bowel sounds. No palpable hepatosplenomegaly noted. GENITALIA: Female. Positive right groin, right upper thigh dressing noted. Decreasing hematoma size noted. EXTREMITIES: Shows positive SCDs. Upper extremity swelling has significantly reduced since the application of the Tommy wraps. DIAGNOSTICS: From 07/24/2018 noted. Body mass index of 27. WBC 11.8, hemoglobin/hematocrit 9.7/32, platelets 189 and granulocytes 84% segs. Sodium 143, potassium 3.7, chloride 98, CO2 is consistently being elevated in 40s, 44, 43; anion gap 6; BUN 28; creatinine 0.7; GFR greater than 60; glucose 89; calcium 8.8; phosphorus 2.9; magnesium 1.8; AST 52; ALT 63; total protein 5.4. Thoracentesis fluid was noted. Blood cultures, no growth. Pleural fluid negative. Chest x-ray from today, 07/24/2018 was noted. FINAL IMPRESSION AND PLAN & DISCHARGE DIAGNOSES: 1. Status post acute hypoxic hypercarbic respiratory failure with respiratory acidosis and hypercapnia. 2. Large bilateral pleural effusion, right more than the left. 3. Status post ultrasound-guided right thoracentesis with removal of 1300 mL of pleural fluid. 4. New-onset atrial fibrillation with rapid ventricular response. 5. Leukocytosis with granulocytosis. 6. Acute blood loss anemia. 7. Post cardiac catheterization, right groin hematoma and right thigh hematoma. 8. Status post packed red blood cell transfusion x4. 9. Respiratory acidosis and hypercarbia. 10. Metabolic alkalosis. 11. Prerenal kidney injury. 12. Transaminitis. 13. Positive influenza A titers. 14. Methicillin-resistant staphylococcus aureus in nares, positive. 15. Status post packed red blood cell transfusion x4. 16. Right lower lobe persistent infiltrate and pneumonia. 17. Resolving left lower lobe pneumonia and infiltrate. 18. Aortic calcification. 19. Cardiomegaly. 20. Status post successful angioplasty and stent placement of the right coronary artery. 21. Severe advanced pulmonary hypertension with right ventricular systolic pressure of greater than 145. 22. Bilateral upper and lower extremity venous stasis. 23. Right upper thigh hematoma. 24. Gait dysfunction. 25. Deconditioning. 26. Possible major depressive disorder with acute depression and possible adjustment disorder with depressive symptoms. 27. Chronic obstructive pulmonary disease. 28. Depression. 29. Hyperlipidemia. 30. History of hypotension. PLAN: At this time, the patient is awaiting for a placement for subacute rehab of family's choice. CURRENT MEDICATIONS: 1. Mucomyst nebulizer 20% 4 mL every 6 hours with Xopenex nebulizer 0.63 mg every 6 hours. 2. Letairis 5 mg daily. 3. Brovana 15 mcg every 12 hours. 4. Cardizem 60 mg every 8 hours. 5. Colace 100 mg three times a day 6. Diamox 250 mg daily. 7. Heparin 5000 subcu every 8 hours. 8. Lasix 20 mg IV push daily. 9. Lexapro 5 mg h.s. 10. Lipitor 40 mg daily. 11. Multivitamin 15 mL daily. 12. Pepcid 20 mg twice a day. 13. Plavix 75 mg daily. 14. Prednisone 20 mg daily. 15. ProAmatine 5 mg three times a day. 16. Revatio 20 mg three times a day. 17. Silvadene cream to the affected area twice a day. 18. Singulair 10 mg h.s. 19. Tylenol 650 mg p.o. suppository every 6 hours p.r.n. 20. Vitamin C 500 mg twice a day. 21. Xopenex 0.63 mg every 6 hours. 22. Zofran 4 mg IV every 4 hours p.r.n. At present, the patient has been medically optimized for discharge to subacute rehab versus long-term acute care. The patient's code status is DNR/DNI, prognosis is guarded to poor. DICTATED AND ELECTRONICALLY SIGNED NOT READ. Jonah Loyd MD [email or web address]
--- NOTE | 2018-07-24 12:54 | CP.PCM.PN ---
Subjective - Date & Time of Evaluation Date of Evaluation: 07/24/18 Time of Evaluation: 11:15 - Subjective Subjective: Patient had thoracentesis yesterday, no fevers, still on BiPAP but feeling a little better. Objective - Vital Signs/Intake and Output Vital Signs (last 24 hours): Temp Pulse Resp BP Pulse Ox 98.3 F 87 19 146/77 93 L 07/23/18 12:00 07/23/18 12:00 07/23/18 12:00 07/23/18 12:00 07/23/18 00:01 Intake and Output: 07/23/18 07/23/18 06:59 18:59 Intake Total 200 Output Total 400 Balance -200 - Medications Medications: Current Medications Acetaminophen (Tylenol 325mg Tab) 650 mg PO Q6 PRN PRN Reason: TEMP>=99.5F Acetaminophen (Tylenol 650 Mg Supp) 650 mg RC Q6H PRN PRN Reason: TEMP>=99.5F Acetylcysteine (Acetylcysteine 20%) 4 ml IH [id number] [facility] Last Admin: 07/23/18 07:44 Dose: 4 ml Arformoterol Tartrate (Brovana) 15 mcg IH [id number] [facility] Last Admin: 07/23/18 07:44 Dose: 15 mcg Ascorbic Acid (Vitamin C 500 Mg Tab) 500 mg PO BID [facility] Last Admin: 07/23/18 10:02 Dose: 500 mg Atorvastatin Calcium (Lipitor) 40 mg PO DIN [facility] Last Admin: 07/22/18 17:34 Dose: 40 mg Clopidogrel Bisulfate (Plavix) 75 mg PO DAILY [facility] Last Admin: 07/23/18 10:02 Dose: 75 mg Diltiazem HCl (Cardizem) 60 mg PO Q8 [facility] Last Admin: 07/23/18 05:40 Dose: 60 mg Docusate Sodium (Colace) 100 mg PO TID [facility] Last Admin: 07/23/18 10:02 Dose: 100 mg Escitalopram Oxalate (Lexapro) 5 mg PO HS [facility] Last Admin: 07/22/18 23:23 Dose: Not Given Famotidine (Pepcid) 20 mg PO 1000,2200 [facility] Last Admin: 07/23/18 10:02 Dose: 20 mg Furosemide (Lasix) 20 mg IVP DAILY [facility] Last Admin: 07/23/18 10:02 Dose: 20 mg Heparin Sodium (Porcine) (Heparin) 5,000 units SC Q8H [facility]; Protocol Last Admin: 07/15/18 13:42 Dose: 5,000 units Doxycycline Hyclate 100 mg/ (Sodium Chloride) 100 mls @ 100 mls/hr IVPB Q12 [facility]; Protocol Stop: 07/23/18 22:00 Last Admin: 07/23/18 10:03 Dose: 100 mls/hr Vancomycin HCl (Vancomycin 1gm) 1 gm in 250 mls @ 167 mls/hr IVPB Q12H [facility]; Protocol Last Admin: 07/23/18 01:09 Dose: 167 mls/hr Levalbuterol HCl (Xopenex) 0.63 mg IH [id number] [facility] Last Admin: 07/23/18 07:44 Dose: 0.63 mg Midodrine (Proamatine) 5 mg PO TID [facility] Last Admin: 07/23/18 10:02 Dose: 5 mg Montelukast Sodium (Singulair) 10 mg PO HS [facility] Last Admin: 07/22/18 22:20 Dose: 10 mg Multivitamins/Vitamin C (Multi-Delyn Liquid) 15 ml PO 0800 [facility] Last Admin: 07/23/18 10:25 Dose: 15 ml Ambrisentan [ Letairis] 5 Mg ( Home Med) 5 mg PO DAILY [facility] Last Admin: 07/23/18 09:52 Dose: Not Given Ondansetron HCl (Zofran Inj) 4 mg IVP Q4H PRN PRN Reason: Nausea/Vomiting Prednisone (Prednisone Tab) 20 mg PO DAILY [facility] Last Admin: 07/23/18 10:02 Dose: 20 mg Sildenafil Citrate (Revatio) 20 mg PO TID [facility] Last Admin: 07/23/18 10:02 Dose: 20 mg Silver Sulfadiazine (Silvadene 1% 25 Gm) 0 gm TP BID [facility] Last Admin: 07/23/18 09:53 Dose: Not Given - Labs Labs: 07/23/18 08:00 07/23/18 08:00 PT 12.4 SECONDS (9.4-12.5) 07/16/18 08:15 INR 1.08 07/16/18 08:15 APTT 27.5 Seconds (25.1-36.5) 07/16/18 08:15 - Constitutional Appears: Chronically Ill - Head Exam Head Exam: NORMAL INSPECTION - Respiratory Exam Respiratory Exam: Decreased Breath Sounds - Cardiovascular Exam Cardiovascular Exam: +S1, +S2 - GI/Abdominal Exam GI & Abdominal Exam: Soft. absent: Tenderness Assessment and Plan - Assessment and Plan (Free Text) Plan: Assessment S/P bilateral lower lobe HCAP in this patient presenting acute myocardial infarction S/P cardiac cath positive influenza A titers, either previous infection or response to influenza vaccination right groin hematoma after cardiac cath history of right leg cellulitis with Pseudomonas in this patient with probable chronic venous stasis, S/P treatment with antibiotics COPD diastolic CHF pulmonary HTN Plan S/P 8 days of Vancomycin, Aztreonam and Doxycycline day 8; cultures have been negative pleural fluid taken 07/23/2018 is transudative Influenza antibody titers are not used for the diagnosis of acute Influenza infection will continue to monitor clinically follow up further plans for the right groin hematoma follow up further recommendations of Cardiology
[2018-07-24 17:44] VITALS: BP 158/78; PULSE 84; TEMP 97
== END 2018-07-24 21:29 | DRG 248 ==
LOC: ED 15:14 → ERH 16:48 → 2RSO 19:25 → ICU 07-13 11:01 → 2RNO 07-19 18:31
PROVIDERS: ADMIT Internal Medicine; ATTEND Internal Medicine
PROC: 5A09457 Assistance with Respiratory Ventilation, 24-96 Consecutive Hours, Continuous Positive Airway Pressure (ICD-10-PCS; 2018-07-13)
PROC: 02703DZ Dilation of Coronary Artery, One Artery with Intraluminal Device, Percutaneous Approach (ICD-10-PCS; principal; 2018-07-14)
PROC: 4A023N8 Measurement of Cardiac Sampling and Pressure, Bilateral, Percutaneous Approach (ICD-10-PCS; 2018-07-14)
PROC: B2151ZZ Fluoroscopy of Left Heart using Low Osmolar Contrast (ICD-10-PCS; 2018-07-14)
PROC: B3101ZZ Fluoroscopy of Thoracic Aorta using Low Osmolar Contrast (ICD-10-PCS; 2018-07-14)
PROC: B2111ZZ Fluoroscopy of Multiple Coronary Arteries using Low Osmolar Contrast (ICD-10-PCS; 2018-07-14)
PROC: 02H632Z Insertion of Monitoring Device into Right Atrium, Percutaneous Approach (ICD-10-PCS; 2018-07-14)
PROC: 3E033PZ Introduction of Platelet Inhibitor into Peripheral Vein, Percutaneous Approach (ICD-10-PCS; 2018-07-14)
PROC: 30233N1 Transfusion of Nonautologous Red Blood Cells into Peripheral Vein, Percutaneous Approach (ICD-10-PCS; 2018-07-15)
PROC: 0W993ZX Drainage of Right Pleural Cavity, Percutaneous Approach, Diagnostic (ICD-10-PCS; 2018-07-23)
DX: I11.0 Hypertensive heart disease with heart failure (principal); J96.01 Acute respiratory failure with hypoxia; J96.02 Acute respiratory failure with hypercapnia; J18.9 Pneumonia, unspecified organism; E87.3 Alkalosis; E87.4 Mixed disorder of acid-base balance; J44.1 Chronic obstructive pulmonary disease with (acute) exacerbation; D62 Acute posthemorrhagic anemia; I97.630 Postprocedural hematoma of a circulatory system organ or structure following a cardiac catheterization; E44.1 Mild protein-calorie malnutrition; J90 Pleural effusion, not elsewhere classified; I48.91 Unspecified atrial fibrillation; I50.33 Acute on chronic diastolic (congestive) heart failure; I50.82 Biventricular heart failure; I25.110 Atherosclerotic heart disease of native coronary artery with unstable angina pectoris; I27.20 Pulmonary hypertension, unspecified; I95.9 Hypotension, unspecified; M47.9 Spondylosis, unspecified; L89.152 Pressure ulcer of sacral region, stage 2; D69.6 Thrombocytopenia, unspecified; I08.1 Rheumatic disorders of both mitral and tricuspid valves; E78.5 Hyperlipidemia, unspecified; K59.00 Constipation, unspecified; M16.11 Unilateral primary osteoarthritis, right hip; F32.9 Major depressive disorder, single episode, unspecified; I87.8 Other specified disorders of veins; R00.2 Palpitations; M45.4 Ankylosing spondylitis of thoracic region; Z66 Do not resuscitate; N28.1 Cyst of kidney, acquired; M25.751 Osteophyte, right hip; E11.51 Type 2 diabetes mellitus with diabetic peripheral angiopathy without gangrene; Y83.8 Other surgical procedures as the cause of abnormal reaction of the patient, or of later complication, without mention of misadventure at the time of the procedure; Y95 Nosocomial condition; Z87.891 Personal history of nicotine dependence; Z91.19 Patient's noncompliance with other medical treatment and regimen; Z79.02 Long term (current) use of antithrombotics/antiplatelets; Z79.82 Long term (current) use of aspirin; Z22.322 Carrier or suspected carrier of Methicillin resistant Staphylococcus aureus